=== PATIENT | female | born 1940 | race Caucasian/White ===

== ENCOUNTER 2019-09-10 05:42 | Inpatient (IN) | payer MEDICARE, OTHER, SELFPAY ==
[2019-09-03 13:41] VITALS: BMI 40.3
[2019-09-10] VITALS (16 sets, daily range): BP systolic 87–131; BP diastolic 42–70; PULSE 57–92; RESP 11–18; TEMP 35.8–37.4; O2SAT 95–100; BMI 40.3
--- NOTE | 2019-09-10 06:00 | DI.RAD.S_ITS ---
PROCEDURE: XR PELVIS 1-2V INDICATIONS: right PRIETO TECHNIQUE: 1 view of the lower pelvis acquired. COMPARISON: None. FINDINGS: Bones: Patient is status post right hip arthroplasty, with hardware components in expected positions. The hip joint appears congruent. The visualized bony structures appear intact. Mild left hip degeneration. Lower lumbar spondylosis and facet arthropathy. Soft tissues: Overlying postoperative changes are noted. No suspicious soft tissue densities. IMPRESSION: Expected postoperative appearance. Dictated by: Joe Ruiz M.D. on 09/10/2019 at 11:15 Approved by: Joe Ruiz M.D. on 09/10/2019 at 11:15
[2019-09-10] MEDS: LACTATED RINGERS 1,000 ML 42 ML IV ×2 (07:28→09:15)
[2019-09-10] MEDS: PREGABALIN 75 MG CAPSULE PO (07:31)
[2019-09-10] MEDS: CELECOXIB 200 MG CAPSULE PO (07:32)
[2019-09-10] MEDS: CEFAZOLIN 2 GM/100 ML FROZ.PIGGY IV ×2 (07:52→16:37)
--- NOTE | 2019-09-10 08:00 | PM.PREOP ---
Pre-operative Note Interval Note History & Physical reviewed/Exam performed by Physician: Yes Changes to H&P: No
[2019-09-10] MEDS: TRANEXAMIC ACID 1,000 MG VIAL 2000 MG INJ ×2 (08:20→09:24)
--- NOTE | 2019-09-10 08:39 | SUR.OPER ---
Lateral on padded OR bed. Gel axillary roll. Arms secured on padded armboard with pillow supporting top arm. Padded hip positioner braces x4 - anterior and posterior chest and pelvis. Additional gel pad used anterior pelvis. Gel pad under bottom leg from knee to foot and secured with tape over sheet.
[2019-09-10] MEDS: MORPHINE 4 MG/ML INJ INJ (08:45)
[2019-09-10] MEDS: KETOROLAC 30 MG/ML VIAL IV (08:45)
[2019-09-10] MEDS: ROPIVACAINE 0.5% PF 5 MG/ML 20ML VIAL 60 ML INJ (08:45)
--- NOTE | 2019-09-10 09:54 | PM.OP.1 ---
Operative Date/Time/Diagnoses Date of procedure: 09/10/19 Time of procedure: 09:55 Pre-op diagnosis: Right hip degenerative joint disease Post-op diagnosis: same Procedure & Clinicians Procedure: Right total hip arthroplasty (CPT code 32752 with assistant shift supervisor) Same procedure as scheduled: Yes Indications: Patient is an 79-year-old female with severe right hip DJD. The patient has pain with activities and at rest, limited ambulation and activity tolerance, difficulties with ADLs, and failure of conservative treatment. We have discussed the nature of condition, treatment options, risks and benefits, and patient elects to proceed with total hip arthroplasty and gives informed consent. Surgeon: Rod Randhawa Buncher Operator: Mitchell Arias Anesthesia Type: General and Spinal Operative Notes Closure Type: primary Specimen(s): none sent Prosthetic devices, grafts, tissues, transplants, or devices: Acetabulum: Madrigal and Nephew R3 acetabular component size 56 mm Femoral component: Madrigal [employer] Nephew Anthology stem size 11 with standard offset Femoral head: 36 mm -3 cobalt chrome Estimated Blood Loss (mL): 150 Procedure in detail: After satisfaction induction of anesthetic, and administration of IV antibiotics, the patient was positioned in the lateral decubitus position with all bony prominences well padded and pelvic position secured using a hip quality assurance consultant positioning device. Right hip and lower extremity prepped and draped in the usual sterile fashion, 1st dose of intravenous tranexamic acid was administered, then a longitudinal incision was created centered over the greater trochanter and carried sharply through the skin and subcutaneous tissues down to the fascia margi which was divided longitudinally and retracted with a Charnley retractor. External rotators visualize, cut, tagged, and retracted posteriorly, then the capsule was cut in a T-type fashion with the corners tagged and retracted. Hip was dislocated and femoral neck cut made according to preoperative templating. Acetabular retractors then placed, and the acetabular labrum and osteophytes were excised. The acetabulum was then sequentially reamed to 55 mm with an excellent circumferential ream and fit with the trial. The trial component was removed and a permanent size 56 mm Madrigal and Nephew R3 acetabular component was selected, positioned, and impacted with satisfactory position and fixation achieved. Permanent liner was then inserted with the elevated lip directed posteriorly. Soft tissue then removed off the lateral femoral neck in the lateral neck was entered using a box osteotome. T-handled reamers placed down the canal followed by sequential broaching to 11 with the final broach left in place for trial reduction which demonstrated excellent leg length, range of motion, and stability characteristics with a 36 mm -3 trial ball. The trial and broach were removed, and a permanent size 11 Madrigal and Nephew Anthology stem was selected and inserted with excellent position and fixation achieved. Another trial reduction yielded the above characteristics so the trial ball was exchanged for a permanent 36 mm -3 cobalt chrome ball. The hip was irrigated and reduced and excellent leg length range of motion and stability characteristics were achieved and maintained. Periarticular tissues were infiltrated with combination of ropivacaine, Toradol, and morphine. The hip was copiously irrigated, and the capsule repaired with #2 Ethibond, and the piriformis was repaired back to the greater trochanter with the same. Fascia margi closed with interrupted #1 Ethibond sutures, and the subcutaneous tissues were closed in 2 layers of 0 Vicryl and final subcutaneous closure with 2 0 Vicryl. Skin was closed with lizzette and sterile dressings applied. Second dose of tranexamic acid was administered intravenously, and the anesthetic was terminated. Complications: none Post-operative Condition: stable Disposition: PACU Plan for aftercare: Patient will be admitted to the acute care [facility], and anticipate discharge to extended care facility on postop day 3 with follow-up in office in 10-14 days. Outpatient physical therapy will be arranged and patient will continue to observe posterior hip precautions. Patient will resume use of warfarin postop for DVT prophylaxis.
--- NOTE | 2019-09-10 10:54 | SUR.PHASEI ---
Report to [facility]. Pt repositioned upon arrival, no changes in report, vital signs stable. Pt transferred in stable condition.
--- NOTE | 2019-09-10 11:21 | PC.NURSE ---
Assess- Patient is A&Ox3. She denies pain at this time. Patient had a spinal to her r.leg and has feeling to about her knee now. She is able to wiggle her toes on affected side and she is also moving her l.lower extremity. IVF infusing and patients family is attentive to care. CMS wnl and ppx2. Resting in bed.
--- NOTE | 2019-09-10 12:40 | CM.IDA ---
Initial DCP Assessment Note: Pt is an 79 yo female, resident of [place]. Pt is here for hip surgery w/ Dr Randhawa, she is off the floor for surgery today. PCP: Jose Luis Martinez Payer: [facility] Reviewed chart, pt is hopeful to return home upon medical clearance w/assist from her dtr Nettie (daughter) [phone] and spouse Kamran () [phone] This WOODWORKER HELPER following closely and will plan to assess needs further once p returns to the floor and therapy team has assessed for DC needs. Eli Jack MSW
[2019-09-10] MEDS: SODIUM CHLORIDE 0.9% 1,000 ML 100 ML IV (12:57)
[2019-09-10] MEDS: ACETAMINOPHEN 325 MG TABLET 650 MG PO ×2 (14:19→22:23)
--- NOTE | 2019-09-10 15:25 | PT.IIE ---
Current Diagnoses Unilateral primary osteoarthritis, right hip (09/10/19) Surgery Performed Operation Date: 09/10/19 07:45 Actual Procedures p Total Hip Arthroplasty(Right) - Rod Randhawa MD Surgical History (Last Updated 09/03/19 @ 14:46 by Isaura La RN) H/O: hysterectomy (Acute) History of aortic valve replacement (Acute ~2001) History of lumpectomy of right breast (Acute) Hx of bilateral cataract extraction (Acute) Hx of removal of cyst (Acute) Hx of tonsillectomy (Acute) S/P CABG x 1 (Acute ~2001) Medical History (Last Updated 09/03/19 @ 14:46 by Isaura La RN) CAD (coronary artery disease) (Acute) Cardiomyopathy (Acute) GERD (gastroesophageal reflux disease) (Acute) Glucose intolerance (Acute) Hearing impaired (Acute) HLD (hyperlipidemia) (Acute) HTN (hypertension) (Acute) Hypothyroidism (Acute) LBBB (left bundle branch block) (Acute) Nonrheumatic aortic (valve) stenosis (Acute) Osteoarthritis (Acute) Osteoporosis (Acute) Panic disorder (Acute) RLS (restless legs syndrome) (Acute) Systolic heart failure (Acute) T12 compression fracture (Acute 06/04/12) Urinary incontinence (Acute) Vertigo (Acute) Physical Therapy Inpatient Evaluation/Re-Eval M1 PT/OT-IP Prior Functional Status Start: 09/10/19 17:18 Freq: NEEDED Status: Active Protocol: Document 09/10/19 15:25 AB (Rec: 09/10/19 17:31 AB [id number]) Medical Review Prior Functional Status Medical History Reviewed Yes Communication able to make needs known but with some confusion Mobility and Gait pt stated that she is modified indpendent with all mobilities and ambulation using 2 canes Social History Household Members none Living Arrangements House Number of Floors (Floors) One Floor Number of Stairs To Enter/Railing? 1 step to enter Home Environment High Toilet,Tub/Shower Home Equipment Front Wheel Walker,Straight Cane,Tub Transfer Bench,Hand Held Shower,Grab Bars In Shower Additional Social History Comment pt plans to have her daughter stay with her to assist her as needed pt has a toilet safety frame, an adjustable bed M2 PT-IP Current Condition Start: 09/10/19 17:18 Freq: NEEDED Status: Active Protocol: Document 09/10/19 15:25 AB (Rec: 09/10/19 17:31 AB [id number]) Physical Therapy Current Condition Current Condition Evaluation Date 09/10/19 Treatment Diagnosis s/p R PRIETO posterior approach; difficulty in walking Onset Date 09/10/2019 Precautions Posterior Hip Precautions No Hip Flexion > 90 degrees,No Hip Internal Rotation,No Hip Adduction Weight Bearing Status Weight Bearing Status Weight Bear as Tolerated Allowed Weight Bearing Amount (enter % RLE WBAT or #) (%) M3 PT-IP Subjective Start: 09/10/19 17:18 Freq: NEEDED Status: Active Protocol: Document 09/10/19 15:25 AB (Rec: 09/10/19 17:31 AB [id number]) Subjective Physical Therapy Visit Type Type Initial Evaluation Visit Start Time 15:25 Visit Stop Time 16:30 Total Visit Minutes 55 Number of COOLER WORKER Visits 0 Physical Therapy Visit Comments Patient Comments pt agreeable to do PT Therapy Pain Assessment Pain When Pain Assessed At Rest Pain Present Pain Present Pain Reported Location right hip Intensity 3 Scale Used increases to 4 1/2 with mobility Pain Behaviors Guarding,Holding Area Pain Management Techniques Apply Cold,Modification of Treatment,Re-positioning, Timing of Activity with Medications M4 PT-IP Mobility and Gait Start: 09/10/19 17:18 Freq: NEEDED Status: Active Protocol: Document 09/10/19 15:25 AB (Rec: 09/10/19 17:31 AB [id number]) PT-Bed Mobility Assessment Supine to Sit Supine to Sit Maximum Assistance,1 Person Assistance PT-Transfer Assessment Sit to and From Stand Sit to and from Stand Maximum Assistance,2 Person Assistance,Use of Upper Extremities Equipment Transfer Assistive Device Gait Belt,Front Wheeled Walker Orthotic/Prosthetic Devices or Brace: No Transfers Transfer Destination Chair Transfer Technique Stand Step Pivot Transfer Ability Level of Assist Maximum Assistance,2 Person Assistance,Use of Upper Extremities Comments Mobility Comments educated pt on hip precautions . pt with confusion and requires repeated cues for safety and precautions. daughter present during PT. pt completed supine to sit max A and cues. required assist with RLE mobility. pt was able to sit on EOB SBA to CGA. completed sit to stand max A x 2 and max cues. (+) R knee buckling requiring max A for stability and max cues to activate R quads. completed step transfer using FWW max A x 2 and max cues for stability . positioned pt on the chair. call light and table placed within reach. ice pack provided. informed nurse regarding pt's mobility level and assistance. Gait Assessment Comments Gait Comments unable at this time due to R knee buckling PT-Balance Assessment Sitting Balance and Reactions Static Sitting Balance Ability Good Dynamic Sitting Balance Ability Fair Standing Balance and Reactions Static Standing Balance Ability Poor Dynamic Standing Balance Ability Poor Device Used FWW M5 PT-IP Objective Assessments Start: 09/10/19 17:18 Freq: NEEDED Status: Active Protocol: Document 09/10/19 15:25 AB (Rec: 09/10/19 17:31 AB [id number]) Orientation Orientation/Cognition Level of Alertness Alert Orientation Name,Place,Situation Language Function Ability No Deficits Noted Safety Awareness Decreased Safety Awareness Memory Description Short Term Impaired Gross Range of Motion Lower Extremity ROM Assessment Right Impaired Impairments RLE tightness and increase guarding affecting PROM Strength Lower Extremity Strength Assessment Bilaterally Impaired Hip R: 3+/5 L: 4-/5 Knee R: 3-/5 L: 3+/5 Sensation Assessment Sensation Gross Sensation WNL Muscle Tone Muscle Tone WNL Yes M6 PT-IP Treatment Start: 09/10/19 17:18 Freq: NEEDED Status: Active Protocol: Document 09/10/19 15:25 AB (Rec: 09/10/19 17:31 AB [id number]) Physical Therapy Treatment Exercises Exercises Quad Sets,Heel Slides Education Education Provided Precautions,Weight Bearing Status,Post-Op Packet,Safety M7 PT-IP Assessment and Plan Start: 09/10/19 17:18 Freq: NEEDED Status: Active Protocol: Document 09/10/19 15:25 AB (Rec: 09/10/19 17:31 AB [id number]) PT Summary Assessment and Plan Potential Rehabilitation Potential Fair Status of Condition at Evaluation Evolving Summary Impairments Pain,ROM,Strength,Balance, Coordination,Sensation,Tone, Cognition,Bed Mobility, Transfers,Gait,Activity Tolerance Assessment Summary pt requiring 2 person max A with mobility at this time. d /c plan depending on progress but at this time may require SNF rehab. will continue to assess progress. pt plans to go home with daughter to assist her and will conduct caregiver training and stair training when appropriate. Goals Bed Mobility Goal Standby Assistance Transfer Goal Standby Assistance,Front Wheeled Walker Gait Goal Standby Assistance,Front Wheel Walker Gait Distance 100 Other Goals up/down 1 step using FWW CGA Days to Meet Goals 5 Frequency of Treatment Frequency Of Treatment Twice a Day Treatment Plan Physical Therapy Treatment Plan Bed Mobility Training,Transfer Training,Gait Training, Therapeutic Exercise,Balance Retraining,Post Op Education, Discharge Planning,Hot or Cold Pack,Neuromuscular Re-ed, Coordination Retraining,Manual Therapy Other Recommendations and Next Treatment transfers, ambulation, Focus caregiver training when appropriate Recommendations To Nursing Amount of Assist Needed 2 Person Assist Discharge Recommendations PT Discharge Recommendations Home with 24/7 Assist,Home Health,SNF Rehab Other Discharge Recommendations depending on progress: SNF vs home with 24/7 and homehealth PT Transportation Needs at Discharge Private Vehicle,Wheelchair/ Cabulance
[2019-09-10] MEDS: WARFARIN 2.5 MG TABLET PO (16:37)
[2019-09-10] MEDS: HYDROCODONE/ACET 5/325 TABLET 1 TAB PO ×2 (16:49→21:09)
[2019-09-10] MEDS: ENOXAPARIN 100 MG/ML SYRINGE SUBCUT (21:06)
[2019-09-10] MEDS: PANTOPRAZOLE 40 MG TABLET PO (21:09)
[2019-09-10] MEDS: ROSUVASTATIN 10 MG TABLET 40 MG PO (21:09)
[2019-09-10] MEDS: lisinopriL 5 MG TABLET PO (21:09)
[2019-09-10] MEDS: EZETIMIBE 10 MG TABLET PO (21:12)
--- NOTE | 2019-09-10 23:31 | PC.NURSE ---
Pt reports she was told she would be taking lovenox while in hospital. Ortho PA notified. Orders placed by PA.
[2019-09-11] VITALS (7 sets, daily range): BP systolic 99–125; BP diastolic 50–63; PULSE 42–96; RESP 18–19; TEMP 36.5–37.2; O2SAT 94–99
[2019-09-11] MEDS: CEFAZOLIN 2 GM/100 ML FROZ.PIGGY IV (00:10)
[2019-09-11] MEDS: SODIUM CHLORIDE 0.9% 1,000 ML 100 ML IV (00:15)
[2019-09-11] MEDS: HYDROCODONE/ACET 5/325 TABLET 1 TAB PO ×2 (02:02→06:04)
[2019-09-11] MEDS: diphenhydrAMINE 25 MG TABLET PO (02:16)
--- NOTE | 2019-09-11 03:43 | PC.NURSE ---
Addendum entered by Crissy Ibarra R.N. 09/11/19 06:08: Medicated with Vicodin for complaint of 8/10 right hip/thigh pain after being pulled up in bed. Original Note: Patient seen and assessed at 0220 (was asleep earlier in shift). Patient is alert and oriented but anxious. Breath sounds CTA with RA sat of 95%. HRR. Denies nausea. BT present but denies flatus as yet; abdomen is soft. Indwelling catheter is patent; urine clear amarilis. Not wanting to turn, but did turn to right side to enable RN to listen to lung sounds but stated was too painful to remain on right side so back onto back and ice applied to hip as well as medicated with Vicodin. TRAVON dressing to right hip intact with 1 small spot of dark red drainage. CMS is intact. Does have fatty tissue bulge on lateral right ankle which is chronic. Bruising noted on left UE, right LE (anterior and posterior) and abdomen. Wearing bilateral calf SCD's. Fall risk score is high and bed alarm is activated. Daughter, Amirah, rooming in. Currently patient is complaining of restless legs so medicated with Mirapex. Allowed staff to tilt bed slightly to left to change pressure. Ice packs applied to right hip and thigh.
[2019-09-11] MEDS: PRAMIPEXOLE 0.25 MG TABLET 0.75 MG PO ×2 (03:46→19:15)
[2019-09-11] MEDS: CYCLOBENZAPRINE 10 MG TABLET PO ×3 (04:47→19:15)
--- NOTE | 2019-09-11 04:51 | PC.NURSE ---
0440 Pt c/o spasms to RLE. Pt given cyclobezaprine per EMAR. Pt asked to have bed rotated to back.
[2019-09-11] MEDS: LEVOTHYROXINE 125 MCG TABLET PO (06:04)
[2019-09-11 06:24] LABS: Hematocrit 34.1 % (36-46); Hemoglobin 11.8 g/dL (12.0-16.0)
[2019-09-11] MEDS: ENOXAPARIN 100 MG/ML SYRINGE SUBCUT ×2 (08:00→21:25)
[2019-09-11] MEDS: ASPIRIN EC 81 MG TABLET PO (08:00)
[2019-09-11] MEDS: ACETAMINOPHEN 325 MG TABLET 650 MG PO ×3 (08:00→22:35)
--- NOTE | 2019-09-11 09:40 | PM.PNPO.1 ---
Subjective Subjective Date Patient Seen: 09/11/19 Time Patient Seen: 09:40 Interval history: Pain is moderate to severe. Denies fever chills. No nausea vomiting. She denies any shortness of breath or chest pain. Exam Vital Signs (past 8 hours): - 09/11/19 04:48 09/11/19 07:34 Temperature 99 F 98.8 F Pulse Rate 94 H 42 L Respiratory Rate 19 18 Blood Pressure 99/51 L 117/63 Pulse Oximetry 94 98 Oxygen Delivery Method Room Air Oxygen Flow Rate 0 Narrative Exam Narrative: 79-year-old female resting comfortably in bed in no apparent distress. Merlene dressing is moist, on and functioning. Motor functions intact distal right lower extremity. Right leg is warm and dry. Sensation grossly intact to light touch. Objective Labs Result Diagrams: 09/11/19 06:01 Labs: Laboratory Results - last 24 hr 09/11/19 06:01 Hgb 11.8 L Hct 34.1 L Assessment & Plan Post-op Postoperative Procedures: Procedures Operation Date: 09/10/19 07:45 Actual Procedures Side Surgeon p Total Hip Arthroplasty Right Rod Randhawa MD Postop day 1. Patient on Lovenox and Coumadin. Mobilize with physical therapy. Posterior hip precautions. Patient will have 1 person home to assist her but currently requiring 2 person assist per physical therapy. Possible discharge home tomorrow or Sunday.
[2019-09-11] MEDS: TRAMADOL 50 MG TABLET PO ×3 (10:18→21:00)
--- NOTE | 2019-09-11 11:40 | PT.IPTN ---
Current Diagnoses Unilateral primary osteoarthritis, right hip (09/10/19) Surgery Performed Operation Date: 09/10/19 07:45 Actual Procedures p Total Hip Arthroplasty(Right) - Rod Randhawa MD Physical Therapy Treatment Note M2 PT-IP Current Condition Start: 09/10/19 17:18 Freq: NEEDED Status: Active Protocol: Document 09/10/19 15:25 AB (Rec: 09/10/19 17:31 AB [id number]) Physical Therapy Current Condition Current Condition Evaluation Date 09/10/19 Treatment Diagnosis s/p R PRIETO posterior approach; difficulty in walking Onset Date 09/10/2019 Precautions Posterior Hip Precautions No Hip Flexion > 90 degrees,No Hip Internal Rotation,No Hip Adduction Weight Bearing Status Weight Bearing Status Weight Bear as Tolerated Allowed Weight Bearing Amount (enter % RLE WBAT or #) (%) M3 PT-IP Subjective Start: 09/10/19 17:18 Freq: NEEDED Status: Active Protocol: Document 09/11/19 11:01 SP (Rec: 09/11/19 14:35 SP [id number]) Subjective Physical Therapy Visit Type Type Treatment Note Visit Start Time 11:01 Visit Stop Time 11:40 Total Visit Minutes 39 Notes Daughter in room observed treatment and understands will be asked to assist and complete caregiver training prior to DC. Number of HOME INSPECTOR Visits 1 Physical Therapy Visit Comments Patient Comments pt agreeable to PT. Therapy Pain Assessment Pain Present Pain Present Pain Reported Location Right Buttock Intensity 5 Scale Used Numeric (1 - 10) Pain Behaviors Facial Grimacing,Holding Area, Moaning Pain Management Techniques Re-positioning,Timing of Activity with Medications M4 PT-IP Mobility and Gait Start: 09/10/19 17:18 Freq: NEEDED Status: Active Protocol: Document 09/11/19 11:01 SP (Rec: 09/11/19 14:35 SP [id number]) PT-Bed Mobility Assessment Supine to Sit Supine to Sit Maximum Assistance,1 Person Assistance,Head of Bed Elevated,Bedrails Scooting Scooting to Edge of Bed Maximum Assistance PT-Transfer Assessment Sit to and From Stand Sit to and from Stand Moderate Assistance,1 Person Assistance,Use of Upper Extremities Equipment Transfer Assistive Device Gait Belt,Front Wheeled Walker Transfers Transfer Destination Chair Transfer Technique Pt ambulated using FWW Transfer Ability Level of Assist Moderate Assistance,1 Person Assistance,Use of Upper Extremities Comments Mobility Comments Pt was laying in bed when arrived. Supine to sitting with HOB elevated Max A of 1 to pull from therapist arm Mod - max A with patient's LUE and RUE on bed rail to transition trunk to sitting. Therapist provided Max A for RLE repositioning to R side of EOB and patient was ableto reposition her LLE herself. Max A to scoot forward while patient used BUE to push on bed to complete to EOB BLE on floor. Sit to stand Mod A of 1 using FWW with BUE proper hand placement to pu sh from bed to stand using FWW. Pt required cuing for body and RLE spacial awareness step pivot turning to maintain no IR of R hip and backing up to chair. Pt required Yung for controlled sitting descent into chair. Pt was up in chair when left with call light and all needs in reach. Daughter in room when left. Gait Assessment Gait Gait Assistance Required: Minimum Assistance,1 Person Assist Distance (Feet) 15 Able to Maintain Weight Bearing Status Yes During Gait Assistive Devices Assistive Device Gait Belt,Front Wheeled Walker Orthotic/Prosthetic Devices or Brace: Yes Gait Deviations General Gait Pattern Antalgic,Decreased Stride Length,Decreased Feet Clearance,Flexed Trunk,Step-to Gait Factors Limiting Gait Function Factors Limiting Gait Function Decreased Activity Tolerance, Decreased Strength,Limited Range of Motion,Pain,Poor Balance,Poor Safety Awareness Comments Gait Comments Pt was able to ambulate R side EOB to side chair 3 ft then stood again pivoted to R and walked around to L side of bed where sat back into chair, used FWW Min A with cuing for leading RLE pivot R to maintain no IR precautions, stable with no R knee buckling or unsteady noted today. Stair Climbing Assessment Comments Stair Climbing Comments Assess 1 step using FWW prior to DC. PT-Balance Assessment Sitting Balance and Reactions Static Sitting Balance Ability Good Dynamic Sitting Balance Ability Fair Standing Balance and Reactions Static Standing Balance Ability Fair Dynamic Standing Balance Ability Poor Device Used FWW M5 PT-IP Objective Assessments Start: 09/10/19 17:18 Freq: NEEDED Status: Active Protocol: Document 09/10/19 15:25 AB (Rec: 09/10/19 17:31 AB [id number]) Orientation Orientation/Cognition Level of Alertness Alert Orientation Name,Place,Situation Language Function Ability No Deficits Noted Safety Awareness Decreased Safety Awareness Memory Description Short Term Impaired Gross Range of Motion Lower Extremity ROM Assessment Right Impaired Impairments RLE tightness and increase guarding affecting PROM Strength Lower Extremity Strength Assessment Bilaterally Impaired Hip R: 3+/5 L: 4-/5 Knee R: 3-/5 L: 3+/5 Sensation Assessment Sensation Gross Sensation WNL Muscle Tone Muscle Tone WNL Yes M6 PT-IP Treatment Start: 09/10/19 17:18 Freq: NEEDED Status: Active Protocol: Document 09/11/19 11:01 SP (Rec: 09/11/19 14:35 SP [id number]) Physical Therapy Treatment Exercises Exercises Ankle Pumps,Gluteal Sets,Quad Sets,Heel Slides,Seated Knee Flexion/Extension Education Education Provided Precautions,Weight Bearing Status,Safety Other Treatments Other Treatment Performed AAROM RLE durign supine ther ex, encouraged R knee heel slides while sitting up in chair for lunch. M7 PT-IP Assessment and Plan Start: 09/10/19 17:18 Freq: NEEDED Status: Active Protocol: Document 09/11/19 11:01 SP (Rec: 09/11/19 14:35 SP [id number]) PT Summary Assessment and Plan Potential Rehabilitation Potential Fair Status of Condition at Evaluation Evolving Summary Impairments Pain,ROM,Strength,Balance, Coordination,Sensation,Tone, Cognition,Bed Mobility, Transfers,Gait,Activity Tolerance Assessment Summary See mobility comments. Pt required Max A for bed mobility, Mod A during transfer and gait using FWW with Mod cuing for RLE no IR, leading RLE ER step to stay within precautions. pt plans to go home with daughter to assist her and will conduct caregiver training and stair training when appropriate. Goals Bed Mobility Goal Standby Assistance Transfer Goal Standby Assistance,Front Wheeled Walker Gait Goal Standby Assistance,Front Wheel Walker Gait Distance 100 Other Goals up/down 1 step using FWW CGA Days to Meet Goals 5 Frequency of Treatment Frequency Of Treatment Twice a Day Treatment Plan Physical Therapy Treatment Plan Bed Mobility Training,Transfer Training,Gait Training, Therapeutic Exercise,Balance Retraining,Post Op Education, Discharge Planning,Hot or Cold Pack,Neuromuscular Re-ed, Coordination Retraining,Manual Therapy Other Recommendations and Next Treatment transfers, ambulation, Focus caregiver training when appropriate Recommendations To Nursing Amount of Assist Needed 1 Person Assist Discharge Recommendations PT Discharge Recommendations Home with 19/02 Assist,Home Health,SNF Rehab Other Discharge Recommendations depending on progress: SNF vs home with 24/7 and homehealth PT Transportation Needs at Discharge Private Vehicle,Wheelchair/ Cabulance
--- NOTE | 2019-09-11 13:54 | PT.IPTN ---
Current Diagnoses Unilateral primary osteoarthritis, right hip (09/10/19) Surgery Performed Operation Date: 09/10/19 07:45 Actual Procedures p Total Hip Arthroplasty(Right) - Rod Randhawa MD Physical Therapy Treatment Note M2 PT-IP Current Condition Start: 09/10/19 17:18 Freq: NEEDED Status: Active Protocol: Document 09/10/19 15:25 AB (Rec: 09/10/19 17:31 AB [id number]) Physical Therapy Current Condition Current Condition Evaluation Date 09/10/19 Treatment Diagnosis s/p R PRIETO posterior approach; difficulty in walking Onset Date 09/10/2019 Precautions Posterior Hip Precautions No Hip Flexion > 90 degrees,No Hip Internal Rotation,No Hip Adduction Weight Bearing Status Weight Bearing Status Weight Bear as Tolerated Allowed Weight Bearing Amount (enter % RLE WBAT or #) (%) M3 PT-IP Subjective Start: 09/10/19 17:18 Freq: NEEDED Status: Active Protocol: Document 09/11/19 13:39 SP (Rec: 09/11/19 14:54 SP [id number]) Subjective Physical Therapy Visit Type Type Treatment Note Visit Start Time 13:39 Visit Stop Time 13:54 Total Visit Minutes 15 Notes bricklayer's assistant in room during tx. Number of BEAN VINER Visits 2 Physical Therapy Visit Comments Patient Comments Pt agreeable to PT. Patient Goals Get back to bed. Therapy Pain Assessment Pain When Pain Assessed During Mobility Pain Present Pain Present Pain Reported Location Right Buttock Intensity 5 Scale Used Numeric (1 - 10) Description Acute,Sharp Pain Behaviors Facial Grimacing,Holding Area, Moaning Pain Management Techniques Re-positioning,Timing of Activity with Medications M4 PT-IP Mobility and Gait Start: 09/10/19 17:18 Freq: NEEDED Status: Active Protocol: Document 09/11/19 13:39 SP (Rec: 09/11/19 14:54 SP [id number]) PT-Bed Mobility Assessment Sit to Supine Sit to Supine Moderate Assistance,Maximum Assistance,2 Person Assistance ,Bedrails Scooting Scooting Up and Down in Bed Maximum Assistance,Dependent PT-Transfer Assessment Sit to and From Stand Sit to and from Stand Minimal Assistance,1 Person Assistance,Use of Upper Extremities Equipment Transfer Assistive Device Gait Belt,Front Wheeled Walker Orthotic/Prosthetic Devices or Brace: No Transfers Transfer Destination Bed Transfer Technique Pt ambulated using FWW Transfer Ability Level of Assist Moderate Assistance,1 Person Assistance,Use of Upper Extremities Comments Mobility Comments Pt was up in chair when arrived. Sit to stand Mod A with good hand placement noted this afternoon, used fWW for support, heavy BUE WB. Stand to sit on EOB CGA. Sitting to supine CG- Min A of 1 for trunk support and Max- dependent BLE onto bed then only Mod A for RLE repositioning to center. Mod A of 2 to reposition paitient's upper body in bed. Nursing requested patient be on her L side for dressing change requiring dependent of 2 person to lateral ly scoot patient then Dependent of 1 to log roll patient onto her L side and prop with pillows behind back tomaintain trunk position and 2 pillows between B LE to maitain no R hip IR. Patient had call light and all needs in reach, nurse and her orthotics prosthetics assistant in room when left. Gait Assessment Gait Gait Assistance Required: Contact Guard Assist,Minimum Assistance,1 Person Assist Distance (Feet) 15 Able to Maintain Weight Bearing Status Yes During Gait Assistive Devices Assistive Device Gait Belt,Front Wheeled Walker Orthotic/Prosthetic Devices or Brace: Yes Gait Deviations General Gait Pattern Antalgic,Decreased Stride Length,Decreased Feet Clearance,Flexed Trunk,Step-to Gait Factors Limiting Gait Function Factors Limiting Gait Function Decreased Activity Tolerance, Decreased Strength,Limited Range of Motion,Pain,Poor Balance,Poor Safety Awareness Comments Gait Comments Pt was ableto ambulate from chair to R side of bed 15 ft using bariatric FWW Min initially then CGA as distance progressed with cuing for step pivot turn leadign RLE as in the am to maintain no R hip IR precautions. Stair Climbing Assessment Comments Stair Climbing Comments Future tx: Assess 1 step using FWW prior to DC. PT-Balance Assessment Sitting Balance and Reactions Static Sitting Balance Ability Good Dynamic Sitting Balance Ability Fair Standing Balance and Reactions Static Standing Balance Ability Good Dynamic Standing Balance Ability Fair Device Used FWW M5 PT-IP Objective Assessments Start: 09/10/19 17:18 Freq: NEEDED Status: Active Protocol: Document 09/10/19 15:25 AB (Rec: 09/10/19 17:31 AB [id number]) Orientation Orientation/Cognition Level of Alertness Alert Orientation Name,Place,Situation Language Function Ability No Deficits Noted Safety Awareness Decreased Safety Awareness Memory Description Short Term Impaired Gross Range of Motion Lower Extremity ROM Assessment Right Impaired Impairments RLE tightness and increase guarding affecting PROM Strength Lower Extremity Strength Assessment Bilaterally Impaired Hip R: 3+/5 L: 4-/5 Knee R: 3-/5 L: 3+/5 Sensation Assessment Sensation Gross Sensation WNL Muscle Tone Muscle Tone WNL Yes M6 PT-IP Treatment Start: 09/10/19 17:18 Freq: NEEDED Status: Active Protocol: Document 09/11/19 13:39 SP (Rec: 09/11/19 14:54 SP [id number]) Physical Therapy Treatment Education Education Provided Precautions,Weight Bearing Status,Safety M7 PT-IP Assessment and Plan Start: 09/10/19 17:18 Freq: NEEDED Status: Active Protocol: Document 09/11/19 13:39 SP (Rec: 09/11/19 14:54 SP [id number]) PT Summary Assessment and Plan Potential Rehabilitation Potential Fair Status of Condition at Evaluation Evolving Summary Impairments Pain,ROM,Strength,Balance, Coordination,Sensation,Tone, Cognition,Bed Mobility, Transfers,Gait,Activity Tolerance Assessment Summary See mobility comments. Pt required Max A for sit to supine bed mobility, Min A transfer and Min- CGA during gait around end of bed using FWW with occasional cuing for RLE no IR to maintain precautions. Pt plans to go home with daughter to assist her and will conduct caregiver training and stair training when appropriate. Goals Bed Mobility Goal Standby Assistance Transfer Goal Standby Assistance,Front Wheeled Walker Gait Goal Standby Assistance,Front Wheel Walker Gait Distance 100 Other Goals up/down 1 step using FWW CGA Days to Meet Goals 5 Frequency of Treatment Frequency Of Treatment Twice a Day Treatment Plan Physical Therapy Treatment Plan Bed Mobility Training,Transfer Training,Gait Training, Therapeutic Exercise,Balance Retraining,Post Op Education, Discharge Planning,Hot or Cold Pack,Neuromuscular Re-ed, Coordination Retraining,Manual Therapy Other Recommendations and Next Treatment transfers, ambulation, Focus caregiver training when appropriate Recommendations To Nursing Amount of Assist Needed 1 Person Assist Discharge Recommendations PT Discharge Recommendations Home with 24/7 Assist,Home Health,SNF Rehab Other Discharge Recommendations depending on progress: SNF vs home with 24/7 and homehealth PT Transportation Needs at Discharge Private Vehicle,Wheelchair/ Cabulance
--- NOTE | 2019-09-11 14:50 | PC.NURSE ---
Addendum entered by Becky Kevin R.N. 09/11/19 15:40: Patient medicate with tylenol at 1425 and tramadol at 1530. She is comfortable. Original Note: Assess- Patients pain medication changed to Tramadol q 6 hours, given this around 1000 and effective for pain control. She also perfers to take tylenol with this. Patient will be do for tramadol soon. Up with PT and tolerated well. Merlene dressing changed and motor flashing green. Patient has a small amount of blood on it. Dressing not long enough to cover patients whole incision, had to apply a couple of 2x2,s on the end of each dressing and it is working well. is aware of this and states that this is fine. Patient is resting comfortably at this time.
--- NOTE | 2019-09-11 15:26 | CM.DPNOTE ---
DCP Cont Met w/pt today and reviewed DCP. Therapy team recommending SNF vs home w/ HH. Pt still hopeful to return home w/her dtr to assist but gives this NATIONAL ACCOUNT MANAGER permission to send referral to [facility] as a b/u option if not safe enough for home plan TC placed to December at [facility] and gave referral, awaiting f/u JW
[2019-09-11] MEDS: WARFARIN 2.5 MG TABLET PO (17:34)
[2019-09-11] MEDS: ROSUVASTATIN 10 MG TABLET 40 MG PO (21:00)
[2019-09-11] MEDS: EZETIMIBE 10 MG TABLET PO (21:00)
[2019-09-11] MEDS: PANTOPRAZOLE 40 MG TABLET PO (21:00)
--- NOTE | 2019-09-11 21:14 | PC.NURSE ---
Addendum entered by Pam Hendrickson R.N. 09/11/19 22:30: TRAVON dressing changed as ordered, no active bleeding at time of change noted to incision. Incision well approximated, secured with lizzette. TRAVON dressing secured overlying incision, green light blinking and functioning. Original Note: Amelie shift note: 2029: TRAVON dressing noted to be complete saturated, orange light flashing. Notified Dr. Cardona regarding dressing saturation. Order obtained to change dressing with another TRAVON dressing. 2109: Expressed concern with saturation to TRAVON dressing to Dr. Cardona, and the second change in a 6 - 7 hour period. Per MD, continue Lovenox as ordered BID and change TRAVON dressing. Coag studies in the am. Will continue to monitor closely.
[2019-09-12] VITALS (13 sets, daily range): BP systolic 69–120; BP diastolic 49–59; PULSE 65–159; RESP 18–22; TEMP 36.4–37.7; O2SAT 93–100
[2019-09-12] MEDS: TRAMADOL 50 MG TABLET PO ×3 (02:53→16:48)
[2019-09-12] MEDS: CYCLOBENZAPRINE 10 MG TABLET PO ×3 (02:56→15:40)
[2019-09-12 05:53] LABS: INR 1.5 (0.9-1.3); Prothrombin Time 17.2 SECONDS (10.1-12.7)
[2019-09-12] MEDS: ACETAMINOPHEN 325 MG TABLET 650 MG PO ×3 (06:04→18:01)
[2019-09-12] MEDS: LEVOTHYROXINE 125 MCG TABLET PO (06:05)
--- NOTE | 2019-09-12 08:15 | P.PN_ITS ---
Subjective Subjective Date Patient Seen: 09/12/19 Time Patient Seen: 07:16 Interval history: Per nurse, TRAVON dressing changed twice overnight. Patient complains of mild-moderate pain in L hip. Voiding with assistance of rose catheter. Progressing slowly with PT secondary to dizziness. BP 97/59 HR 65 H/H 10.5/30.5 INR 1.5. Denies fever, chills, chest pain, shortness of breath Exam Vital Signs (past 8 hours): - 09/13/19 03:00 09/13/19 03:41 09/13/19 03:57 Temperature 98.0 F Pulse Rate 142 H 142 H 139 H Respiratory Rate 18 18 Blood Pressure 90/65 82/59 L 82/59 L Pulse Oximetry 100 09/13/19 04:05 09/13/19 05:00 09/13/19 06:00 Temperature Pulse Rate 132 H 139 H 147 H Respiratory Rate 19 19 22 Blood Pressure 88/67 L 96/62 98/53 L Pulse Oximetry 99 97 100 09/13/19 07:15 09/13/19 08:00 09/13/19 08:30 Temperature 97.8 F Pulse Rate 97 H 97 H Respiratory Rate 19 16 Blood Pressure 97/54 L 92/58 L Pulse Oximetry 100 98 09/13/19 09:32 Temperature Pulse Rate 102 H Respiratory Rate 17 Blood Pressure 89/57 L Pulse Oximetry 94 Oxygen Delivery Method Nasal Cannula Oxygen Flow Rate 0 Narrative Exam Narrative: 79 year old female is lying comfortably in bed, in no apparent distress. A&Ox3. TRAVON dressing is working and saturated - serosanguineous. SCDs in place. Sensory function grossly intact to light touch in LE BL. Able to actively dorsiflex/plantar flex BL. Capillary refill <2sec in LE BL. Calves warm, soft, compressible, non tender to palpation. Objective Labs Result Diagrams: 09/13/19 04:40 09/13/19 04:40 Labs: Laboratory Results - last 24 hr 09/12/19 09/12/19 09/12/19 05:35 05:35 22:40 WBC 9.1 11.4 H RBC 3.12 L 2.34 L Hgb 10.5 L 10.5 L 7.9 L Hct 30.2 L 30.5 L 22.6 L MCV 97.5 96.8 MCH 33.7 33.6 MCHC 34.5 34.7 RDW 13.6 13.4 Plt Count 161 158 Neut % (Auto) 64.3 Lymph % (Auto) 21.0 L [place] % (Auto) 14.0 Eos % (Auto) 0.3 L Baso % (Auto) 0.4 Neut # (Auto) 7300 H Lymph # (Auto) 2400 [place] # (Auto) 1600 H Eos # (Auto) 0 Baso # (Auto) 0 PT INR Sodium Potassium Chloride Carbon Dioxide BUN Creatinine Estimated GFR BUN/Creatinine Ratio Glucose Calcium Magnesium Total Bilirubin AST ALT Alkaline Phosphatase Troponin I Total Protein Albumin Globulin Albumin/Globulin Ratio TSH Blood Type Antibody Screen Crossmatch 09/12/19 09/12/19 09/12/19 22:40 22:40 23:45 WBC RBC Hgb Hct MCV MCH MCHC RDW Plt Count Neut % (Auto) Lymph % (Auto) [place] % (Auto) Eos % (Auto) Baso % (Auto) Neut # (Auto) Lymph # (Auto) [place] # (Auto) Eos # (Auto) Baso # (Auto) PT INR Sodium 129 L Potassium 4.7 Chloride 98 Carbon Dioxide 26 BUN 16 Creatinine 0.90 Estimated GFR > 60.0 BUN/Creatinine Ratio 17.8 Glucose 158 H Calcium 7.9 L Magnesium 2.0 Total Bilirubin 0.7 AST 48 H ALT 27 Alkaline Phosphatase 34 L Troponin I 0.159 H* Total Protein 5.3 L Albumin 2.6 L Globulin 2.7 Albumin/Globulin Ratio 1.0 TSH Blood Type A Positive Antibody Screen Negative Crossmatch See Detail 09/13/19 09/13/19 09/13/19 04:40 04:40 04:40 WBC 13.7 H RBC 2.79 L Hgb 9.1 L Hct 26.1 L MCV 93.3 D MCH 32.5 MCHC 34.8 RDW 14.3 Plt Count 153 Neut % (Auto) Lymph % (Auto) [place] % (Auto) Eos % (Auto) Baso % (Auto) Neut # (Auto) Lymph # (Auto) [place] # (Auto) Eos # (Auto) Baso # (Auto) PT 24.4 H D INR 2.1 H Sodium Potassium Chloride Carbon Dioxide BUN Creatinine Estimated GFR BUN/Creatinine Ratio Glucose Calcium Magnesium Total Bilirubin AST ALT Alkaline Phosphatase Troponin I 0.362 H* Total Protein Albumin Globulin Albumin/Globulin Ratio TSH Blood Type Antibody Screen Crossmatch 09/13/19 09/13/19 09/13/19 04:40 04:40 04:40 WBC RBC Hgb Hct MCV MCH MCHC RDW Plt Count Neut % (Auto) Lymph % (Auto) [place] % (Auto) Eos % (Auto) Baso % (Auto) Neut # (Auto) Lymph # (Auto) [place] # (Auto) Eos # (Auto) Baso # (Auto) PT INR Sodium 126 L Potassium 4.7 Chloride 96 L Carbon Dioxide 23 BUN 18 H Creatinine 0.70 Estimated GFR > 60.0 BUN/Creatinine Ratio 25.7 H Glucose 128 H Calcium 7.6 L Magnesium 2.0 Total Bilirubin AST ALT Alkaline Phosphatase Troponin I Total Protein Albumin Globulin Albumin/Globulin Ratio TSH 3.93 Blood Type Antibody Screen Crossmatch Assessment & Plan Post-op Postoperative Procedures: Procedures Operation Date: 09/10/19 07:45 Actual Procedures Side Surgeon p Total Hip Arthroplasty Right Rod Randhawa MD Postoperative plan narrative: Dressing saturation - Anticoag plan: ASA 81mg QD, bridging to warfarin with lovenox. Contacted PCP office, recommended continuing anticoag plan until INR 2.0 - Changed TRAVON dressinx4, abd pads, medipore - Ordered CBC - Dr. Randhawa updated Continue current pain management plan Continue SCDs for DVT prophylaxis Resume PT when patient is asymptomatic Discharge to [facility] likely Time Spent With Patient Time with patient: 15-24 minutes
[2019-09-12] MEDS: ENOXAPARIN 100 MG/ML SYRINGE SUBCUT ×2 (09:26→20:01)
[2019-09-12] MEDS: ASPIRIN EC 81 MG TABLET PO (09:26)
--- NOTE | 2019-09-12 10:29 | PT.IPTN ---
Current Diagnoses Unilateral primary osteoarthritis, right hip (09/10/19) Surgery Performed Operation Date: 09/10/19 07:45 Actual Procedures p Total Hip Arthroplasty(Right) - Rod Randhawa MD Physical Therapy Treatment Note M2 PT-IP Current Condition Start: 09/10/19 17:18 Freq: NEEDED Status: Active Protocol: Document 09/10/19 15:25 AB (Rec: 09/10/19 17:31 AB [id number]) Physical Therapy Current Condition Current Condition Evaluation Date 09/10/19 Treatment Diagnosis s/p R PRIETO posterior approach; difficulty in walking Onset Date 09/10/2019 Precautions Posterior Hip Precautions No Hip Flexion > 90 degrees,No Hip Internal Rotation,No Hip Adduction Weight Bearing Status Weight Bearing Status Weight Bear as Tolerated Allowed Weight Bearing Amount (enter % RLE WBAT or #) (%) M3 PT-IP Subjective Start: 09/10/19 17:18 Freq: NEEDED Status: Active Protocol: Document 09/12/19 10:10 HH (Rec: 09/12/19 10:28 [id number]) Subjective Physical Therapy Visit Type Type Treatment Note Visit Start Time 09:40 Visit Stop Time 10:08 Total Visit Minutes 28 Notes food service assistant in room during tx. 2 dtrs attended session Number of RN NEW GRAD Visits 0 Physical Therapy Visit Comments Patient Comments Pt agreeable to PT but c/o muscle spams at R upper thigh. Therapy Pain Assessment Pain When Pain Assessed During Mobility Pain Present Pain Present Pain Reported Location right hip Intensity 3 Scale Used Numeric (1 - 10) Description Acute Pain Behaviors Facial Grimacing Pain Management Techniques Apply Cold,Timing of Activity with Medications M4 PT-IP Mobility and Gait Start: 09/10/19 17:18 Freq: NEEDED Status: Active Protocol: Document 09/12/19 10:10 HH (Rec: 09/12/19 10:28 [id number]) PT-Bed Mobility Assessment Supine to Sit Supine to Sit Maximum Assistance,1 Person Assistance,Head of Bed Elevated,Bedrails Sit to Supine Sit to Supine Maximum Assistance,2 Person Assistance,Bedrails Scooting Scooting to Edge of Bed Maximum Assistance Scooting Up and Down in Bed Maximum Assistance,Dependent PT-Transfer Assessment Comments Mobility Comments Pt was in bed upon PT arrival. c/o new onset of muscle spasm at R upper thigh. Elevated HOB to 40 degrees and attempted supine to sit. Pt was unable to pivot her RLE with belt and needed PT max A to pivot towards R EOB while pt pivoting her upper body very slowly. Pt needed max A x 1 with the use of blue pad followed by scooting towards EOB. Pt c/o lightheadness and BP maintained at 90s/50s but resting HR ranged from 120-138 . Her HR did not change after a sitting break for 8 mins and cont c/o dizziness and SOB. Proceeded to return pt back to bed with CLIENT RENEWAL SPECIALIST assistance with max A x 2 (PT assisted in BLEs and CLIENT RENEWAL SPECIALIST on pt's upper body) . Trendelenberg bed position was used to assist scooting upward afterwards. Pt's HR went down to 100 after and call light was placed within reach. Gait Assessment Comments Gait Comments unable to assess d/t high resting HR and dizziness. Stair Climbing Assessment Comments Stair Climbing Comments unable to assess d/t high resting HR and dizziness. PT-Balance Assessment Sitting Balance and Reactions Static Sitting Balance Ability Good Dynamic Sitting Balance Ability Fair M5 PT-IP Objective Assessments Start: 09/10/19 17:18 Freq: NEEDED Status: Active Protocol: Document 09/10/19 15:25 AB (Rec: 09/10/19 17:31 AB [id number]) Orientation Orientation/Cognition Level of Alertness Alert Orientation Name,Place,Situation Language Function Ability No Deficits Noted Safety Awareness Decreased Safety Awareness Memory Description Short Term Impaired Gross Range of Motion Lower Extremity ROM Assessment Right Impaired Impairments RLE tightness and increase guarding affecting PROM Strength Lower Extremity Strength Assessment Bilaterally Impaired Hip R: 3+/5 L: 4-/5 Knee R: 3-/5 L: 3+/5 Sensation Assessment Sensation Gross Sensation WNL Muscle Tone Muscle Tone WNL Yes M6 PT-IP Treatment Start: 09/10/19 17:18 Freq: NEEDED Status: Active Protocol: Document 09/11/19 13:39 SP (Rec: 09/11/19 14:54 SP [id number]) Physical Therapy Treatment Education Education Provided Precautions,Weight Bearing Status,Safety M7 PT-IP Assessment and Plan Start: 09/10/19 17:18 Freq: NEEDED Status: Active Protocol: Document 09/12/19 10:10 HH (Rec: 09/12/19 10:28 HH [id number]) PT Summary Assessment and Plan Potential Rehabilitation Potential Fair Status of Condition at Evaluation Evolving Summary Impairments Pain,ROM,Strength,Balance, Coordination,Sensation,Tone, Cognition,Bed Mobility, Transfers,Gait,Activity Tolerance Assessment Summary See mobility comments. Pt cont to demonstrates very limited mobility and unstable vital signs with seated resting HR at 130s possibly d/t increase in pain and her anxious behavior. She cont to need max A x 2 for bed mobility , along with her new c/o muscle spasm at R upper thigh but resolved after sitting up. In my professional opinion, pt needs SNF rehab due to her very limited mobility which would be a great burden to her family. Goals Bed Mobility Goal Standby Assistance Transfer Goal Standby Assistance,Front Wheeled Walker Gait Goal Standby Assistance,Front Wheel Walker Gait Distance 100 Other Goals up/down 1 step using FWW CGA Days to Meet Goals 5 Frequency of Treatment Frequency Of Treatment Twice a Day Treatment Plan Physical Therapy Treatment Plan Bed Mobility Training,Transfer Training,Gait Training, Therapeutic Exercise,Balance Retraining,Post Op Education, Discharge Planning,Hot or Cold Pack,Neuromuscular Re-ed, Coordination Retraining,Manual Therapy Other Recommendations and Next Treatment check vitals Focus transfers, ambulation, caregiver training when appropriate Recommendations To Nursing Amount of Assist Needed 1 Person Assist,2 Person Assist Discharge Recommendations PT Discharge Recommendations SNF Rehab Other Discharge Recommendations see assessment summary Transportation Needs at Discharge Private Vehicle,Wheelchair/ Cabulance
[2019-09-12 11:08] LABS: Hematocrit 30.2 % (36-46); Hemoglobin 10.5 g/dL (12.0-16.0)
--- NOTE | 2019-09-12 13:06 | PC.NURSE ---
Patient is extremely anxious. She states that she is having a spasm and some burning on the anterior portion of her thigh on r.hip replacement. Given tramadol, tylenol, and flexeril for her discomfort and helpful. Patients deangelo drain dressing has been changed several times and PA is going to change the dressing to 4x4s, abd pads, and metapor tape. She is eating lunch now and seems to be comfortable. Applying ice to leg and helpful.
--- NOTE | 2019-09-12 15:56 | PT.IPTN ---
Current Diagnoses Unilateral primary osteoarthritis, right hip (09/10/19) Surgery Performed Operation Date: 09/10/19 07:45 Actual Procedures p Total Hip Arthroplasty(Right) - Rod Randhawa MD Physical Therapy Treatment Note M2 PT-IP Current Condition Start: 09/10/19 17:18 Freq: NEEDED Status: Active Protocol: Document 09/10/19 15:25 AB (Rec: 09/10/19 17:31 AB [id number]) Physical Therapy Current Condition Current Condition Evaluation Date 09/10/19 Treatment Diagnosis s/p R PRIETO posterior approach; difficulty in walking Onset Date 09/10/2019 Precautions Posterior Hip Precautions No Hip Flexion > 90 degrees,No Hip Internal Rotation,No Hip Adduction Weight Bearing Status Weight Bearing Status Weight Bear as Tolerated Allowed Weight Bearing Amount (enter % RLE WBAT or #) (%) M3 PT-IP Subjective Start: 09/10/19 17:18 Freq: NEEDED Status: Active Protocol: Document 09/12/19 14:10 LJ (Rec: 09/12/19 15:56 LJ [email or web address]) Subjective Physical Therapy Visit Type Type Treatment Note Visit Start Time 14:10 Visit Stop Time 14:56 Total Visit Minutes 46 Notes Pa and nurse changing dressing . Pt lying rt side incline Physical Therapy Visit Comments Patient Comments Pt agreeable to PT but c/o muscle spams at R upper thigh. Therapy Pain Assessment Pain When Pain Assessed At Rest Pain Present Pain Present Pain Reported Location Right Buttock Intensity 5 Description Aching Pain Behaviors Facial Grimacing,Holding Area, Moaning Pain Management Techniques Re-positioning,Timing of Activity with Medications M4 PT-IP Mobility and Gait Start: 09/10/19 17:18 Freq: NEEDED Status: Active Protocol: Document 09/12/19 14:10 LJ (Rec: 09/12/19 15:56 LJ [email or web address]) PT-Bed Mobility Assessment Scooting Scooting Up and Down in Bed Maximum Assistance,Dependent PT-Transfer Assessment Comments Mobility Comments Pt was unable to reposition or even attempt to sit up in bed . Muscle spasms would occur every time pt initiated movement with RLE Gait Assessment Comments Gait Comments unable at this time Stair Climbing Assessment Comments Stair Climbing Comments unable at this time. Pt unable to get out of bed due to pain and muscle spasms PT-Balance Assessment Sitting Balance and Reactions Static Sitting Balance Ability Good Dynamic Sitting Balance Ability Fair Standing Balance and Reactions Static Standing Balance Ability Good Dynamic Standing Balance Ability Fair Device Used FWW M5 PT-IP Objective Assessments Start: 09/10/19 17:18 Freq: NEEDED Status: Active Protocol: Document 09/10/19 15:25 AB (Rec: 09/10/19 17:31 AB [id number]) Orientation Orientation/Cognition Level of Alertness Alert Orientation Name,Place,Situation Language Function Ability No Deficits Noted Safety Awareness Decreased Safety Awareness Memory Description Short Term Impaired Gross Range of Motion Lower Extremity ROM Assessment Right Impaired Impairments RLE tightness and increase guarding affecting PROM Strength Lower Extremity Strength Assessment Bilaterally Impaired Hip R: 3+/5 L: 4-/5 Knee R: 3-/5 L: 3+/5 Sensation Assessment Sensation Gross Sensation WNL Muscle Tone Muscle Tone WNL Yes M6 PT-IP Treatment Start: 09/10/19 17:18 Freq: NEEDED Status: Active Protocol: Document 09/12/19 14:10 LJ (Rec: 09/12/19 15:56 LJ [email or web address]) Physical Therapy Treatment Exercises Exercises Ankle Pumps,Gluteal Sets,Quad Sets,Heel Slides Other Treatments Other Treatment Performed STM at right hip flexors and thigh in supine. AAROM with heel slides M7 PT-IP Assessment and Plan Start: 09/10/19 17:18 Freq: NEEDED Status: Active Protocol: Document 09/12/19 14:10 LJ (Rec: 09/12/19 15:56 LJ [email or web address]) PT Summary Assessment and Plan Potential Rehabilitation Potential Fair Status of Condition at Evaluation Evolving Summary Impairments Pain,ROM,Strength,Balance, Coordination,Sensation,Tone, Cognition,Bed Mobility, Transfers,Gait,Activity Tolerance Assessment Summary Pt cont to be very limited in mobility by pain, muscle spasms, and weakness. Pt was unable to move her RLE independently and when assisted (~90%) spasms would occur. After several minutes of STM pt was able to AAROM gentle heel slides but any independent mattempt at movement would create more spasming. Attempt tp sit on side of bed next treatment. Goals Bed Mobility Goal Standby Assistance Transfer Goal Standby Assistance,Front Wheeled Walker Gait Goal Standby Assistance,Front Wheel Walker Gait Distance 100 Other Goals up/down 1 step using FWW CGA Days to Meet Goals 5 Frequency of Treatment Frequency Of Treatment Twice a Day Treatment Plan Physical Therapy Treatment Plan Bed Mobility Training,Transfer Training,Gait Training, Therapeutic Exercise,Balance Retraining,Post Op Education, Discharge Planning,Hot or Cold Pack,Neuromuscular Re-ed, Coordination Retraining,Manual Therapy Other Recommendations and Next Treatment check vitals Focus transfers, ambulation, caregiver training when appropriate Recommendations To Nursing Amount of Assist Needed 1 Person Assist,2 Person Assist Discharge Recommendations PT Discharge Recommendations SNF Rehab Other Discharge Recommendations see assessment summary Transportation Needs at Discharge Private Vehicle,Wheelchair/ Cabulance
--- NOTE | 2019-09-12 16:25 | CM.DPNOTE ---
Pt has been accepted at [facility] if SNF bed needed Sunday. PASRR still needed. JW
[2019-09-12 17:29] LABS: Hematocrit 30.5 % (36-46); Hemoglobin 10.5 g/dL (12.0-16.0); Mean Corpuscular HGB Conc 34.5 % (30-36); Mean Corpuscular Hemoglobin 33.7 PG (26-34); Mean Corpuscular Volume 97.5 fL (80-100); Platelet Count 161 X10^3/uL (150-400); Red Blood Cell Count 3.12 X10^6/uL (4.0-5.2); Red Cell Distribution Width 13.6 % (11.6-14.8); White Blood Cell Count 9.1 X10^3/uL (4.5-11.0)
[2019-09-12] MEDS: WARFARIN 5 MG TABLET PO (18:02)
[2019-09-12] MEDS: ROSUVASTATIN 10 MG TABLET 40 MG PO (20:00)
[2019-09-12] MEDS: PANTOPRAZOLE 40 MG TABLET PO (20:00)
[2019-09-12] MEDS: EZETIMIBE 10 MG TABLET PO (20:00)
[2019-09-12] MEDS: diphenhydrAMINE 25 MG TABLET PO (20:03)
[2019-09-12] MEDS: ONDANSETRON 4 MG ODT PO (21:14)
[2019-09-12] MEDS: SODIUM CHLORIDE 0.9% 1,000 ML 1000 ML IV (21:25)
--- NOTE | 2019-09-12 21:51 | PC.NURSE ---
Pt HR variable and tachy for last 90 minutes, BP very low bilateral arms incl FA 76-90/46-50. Pt became nauseas and broke out in cold sweat, afebrile 97.8. RR= 18, O2 sat 99%. Urine output for [place] shift = 125 mLs. MD Sanabria ordered 1000mLs NS /999 hr. Tele applied.
--- NOTE | 2019-09-12 21:58 | PC.NURSE ---
MD Sanabria advised patient in SVT. MANAGER LABOR DELIVERY in room.
--- NOTE | 2019-09-12 22:11 | P.HP_ITS ---
History of Present Illness History of Present Illness Date Patient Seen: 09/12/19 Time Patient Seen: 22:11 Chief complaint: 96379 Right Total Hip Arthroplasty Narrative: Patient w/ PMHx of HTN, CAD (h/o 1v-CABG 2001), cardiomyopathy, LBBB, AV stenosis (s/p mechanical AVR 2001), chronic warfarin AC, HLD, hypothyroidism, OA, osteoporosis, RLS, and morbid obesity. Patient's visual merchandising associate is Yadiel Higginbotham in [facility]. Patient is being seen for an arrhythmia consult. Patient was admitted to the hospital 09/10/2019 with severe right hip DJD for which she underwent right total hip arthroplasty. Patient surgical course was uneventful. Records show EBL of 150 ml. On at 2200 hour patient developed a cardiac arrhythmia. Initially appeared to be SVT but then EKG did not seem to be completely consistent with SVT and was more of an AFIB RVR (170-180s). Patient was symptomatic for diaphoresis, dizziness, and hypotension. SBP dropped into the 60s mmHg. Patient does not have prior history of known arrhythmia. She was on a beta-sary, carvedilol, which has been help with past 2 days. Patient is also warfarin for her mechanical heart valve. Warfarin has been restarted post-op with a Lovenox bridge. INR as of 0535 was 1.5. Patient was transferred to the ICU. She was treated with 150 mg bolus of amiodarone insert on the amiodarone drip per protocol. There was improvement in patient's blood pressure (90 mmHg) and heart rate (140-150). Patient's symptoms have resolved. Patient's primary visual merchandising associate is Yadiel Higginbotham with [facility] in [place]. I have spoke with Dr. Guillory, visual merchandising associate on-call for the group. Further recommendations received... Digoxin 250 mcg IV up to 4 doses. If patient patient is symptomatic and unable to sustain her blood pressure than may need to be cardioverted. Patient History Medical History CAD (coronary artery disease) (Acute) Cardiomyopathy (Acute) GERD (gastroesophageal reflux disease) (Acute) Glucose intolerance (Acute) Hearing impaired (Acute) HLD (hyperlipidemia) (Acute) HTN (hypertension) (Acute) Hypothyroidism (Acute) LBBB (left bundle branch block) (Acute) Nonrheumatic aortic (valve) stenosis (Acute) Osteoarthritis (Acute) Osteoporosis (Acute) Panic disorder (Acute) RLS (restless legs syndrome) (Acute) Systolic heart failure (Acute) T12 compression fracture (Acute 06/04/12) Urinary incontinence (Acute) Vertigo (Acute) Surgical History H/O: hysterectomy (Acute) History of aortic valve replacement (Acute ~2001) History of lumpectomy of right breast (Acute) Hx of bilateral cataract extraction (Acute) Hx of removal of cyst (Acute) Hx of tonsillectomy (Acute) S/P CABG x 1 (Acute ~2001) Family & Social History Social History: household members none Prior Living Arrangements House Safety & Behavioral: Feels Safe in Current Yes Environment Been Physically Hurt or No Threatened By a Person Suicidal Ideation Description None Suicide Plan Description No Plan Tobacco & Substance use: Smoking Status Never smoker alcohol intake never Substance Use Type does not use Meds Home Medications and Allergies Home Medications Medication Instructions Recorded Confirmed Type diphenhydramine HCl 25 mg PO BEDTIME PRN #0 06/17/12 09/10/19 History acetaminophen [Tylenol Extra 500 mg PO Q8HP PRN #0 06/18/12 09/10/19 History Strength] tramadol 50 mg PO Q8HP PRN #0 06/18/12 09/10/19 History aspirin 81 mg PO DAILY 09/03/19 09/10/19 History calcium carbonate-vitamin D3 1 tab PO BID 09/03/19 09/10/19 History [Caltrate 600 plus D] carvedilol 25 mg PO BID 09/03/19 09/10/19 History cyclobenzaprine 10 mg PO TID PRN 09/03/19 09/10/19 History ezetimibe [Zetia] 10 mg PO BEDTIME 09/03/19 09/10/19 History levothyroxine [Synthroid] 125 mcg PO SEEINSTR 09/03/19 09/10/19 History lisinopril 5 mg PO BEDTIME 09/03/19 09/10/19 History niacin 1,000 mg PO BID 09/03/19 09/10/19 History omeprazole 40 mg PO BEDTIME 09/03/19 09/10/19 History pramipexole 0.75 mg PO BEDTIME PRN 09/03/19 09/10/19 History rosuvastatin [Crestor] 40 mg PO BEDTIME 09/03/19 09/10/19 History trospium 60 mg PO BEDTIME 09/03/19 09/10/19 History warfarin 2.5 mg PO SEEINSTR 09/03/19 09/10/19 History warfarin 5 mg PO SEEINSTR 09/03/19 09/10/19 History Allergies Allergy/AdvReac Type Severity Reaction Status Date / Time latex Allergy Intermediate ITCHING Verified 09/10/19 07:23 Review of Systems Review of Systems ROS: Yes All systems reviewed with the patient and are negative except as otherwise documented Exam Vital Signs (past 8 hours): - 09/12/19 16:37 09/12/19 19:52 09/12/19 19:54 Temperature 98.9 F 98.5 F Pulse Rate 116 H 107 H 115 H Respiratory Rate 19 22 Blood Pressure 105/56 L 105/52 L 105/52 L Pulse Oximetry 97 97 09/12/19 21:36 09/12/19 21:40 09/12/19 21:44 Temperature 97.8 F Pulse Rate 118 H 129 H 132 H Respiratory Rate 18 18 18 Blood Pressure 94/52 L 81/49 L 69/50 L Pulse Oximetry 99 98 97 Oxygen Delivery Method Room Air Oxygen Flow Rate 0 Narrative Exam Narrative: Constitutional: diaphoretic, obese habitus Neurologic: AOx3, no focal neurological deficits Head: NC, AT Eyes: PERRL, EOMI, Ears: external ears normal, no otorrhea Nose: external nose normal, no rhinorrhea or epistaxis Throat: dry MM, oropharynx w/o exudate Neck: no masses, lymphadenopathy, or JVD Chest / Respiratory: equal chest rise, unlabored respiratory effort, no tachypnea Heart / CV: Irregular Abdomen / GI: central obesity, NT, ND, + BS, no organomegaly : no suprapubic tenderness Peripheral / Vascular: warm to touch, DP and PT pulses palpable, no edema Musc: full ROM of upper and lower extremities; RLE diminished ROM Skin: LLE above ankle area ecchymosis; overall pale appearance Objective Labs Result Diagrams: 09/13/19 04:40 09/13/19 04:40 Labs: Laboratory Results - last 24 hr 09/12/19 09/12/19 09/12/19 05:35 05:35 05:35 WBC 9.1 RBC 3.12 L Hgb 10.5 L 10.5 L Hct 30.2 L 30.5 L MCV 97.5 MCH 33.7 MCHC 34.5 RDW 13.6 Plt Count 161 PT 17.2 H INR 1.5 H Assessment & Plan Assessment & Plan narrative: Hospitalist service is being consulted to manage patient's arrhythmia. Patient presented with AFIB RVR. AFIB RVR, acute, developed post-op complication, active - New onset (appears to be less than 48 hours), no prior known history, suspected to be a post-op complication - 150 m mg bolus amiodarone, followed by amiodarone gtt protocol - Digoxin 250 mcg IV Q4H x4 doses - Currently on warfarin anticoagulation with Lovenox bridge - STAT CBC, CMP, Mg, Trop Hypotension, acute, post-op complication, active - Finished a 1L bolus (ordered by Dr. Sanabria) - Will continue NS at 100 ml/hr and re-evaluate hourly (EF 45-55%, at present time no symptoms of volume excess) - At baseline patient is hypertensive, NEWS ANALYST antihypertensives have been held Anemia, post-op, [id number], active - HGB 10.5 (09/12 0535) - STAT CBC DJD, chronic condition, present on admission, active - s/p right total hip arthroplasty on 09/12 CAD, chronic condition, present on admission, active - H/O 1v-CABG 2001 - + dizziness / arrythmia; no active chest pain - Troponin - On ASA, BB, OK, and statin prior to orthopedic surgery; all pre-op meds w/ exception of BB have been resumed post-op History aortic valve replacement 2001 (mechanical valve), present admission, chronic condition, active - On warfarin anticoagulation at baseline, INR is subtherapeutic, currently w/ lovenox bridge - Check coags in am Dyslipidemia, chronic condition present on admission, stable - On rosuvastatin and Zetia Hypothyroidism, chronic condition, present on admission, stable - On levothyroxine, check TSH w/ am lab Full code. No formal health directive per patient, however patient designates her daughters Sharri and Angela, as surrogate decision makers. Patient's home and inpatient medications were reviewed. VTE prophylaxis: SCDs present, on warfarin/Lovenox
--- NOTE | 2019-09-12 22:14 | PC.NURSE ---
Pt found to be in SVT and transferred to ICU; given 150 mg amiodarone in 100 mLs IV STAT and 360 mg amiodarone in 200 mLs IV. BP improving 85/55.
[2019-09-12] MEDS: AMIODARONE 150 MG/3 ML VIAL IV (22:15)
[2019-09-12] MEDS: AMIODARONE 360 MG/200 ML PIGGYBACK 33.1 MG IV (22:30)
[2019-09-12 22:49] LABS: Add Manual Diff / Slide Review NO; Basophils Absolute Auto 0 /uL (0-100); Basophils Percent Auto 0.4 % (0-2); Eosinophils Absolute Auto 0 /uL (0-450); Eosinophils Percent Auto 0.3 % (2-4); Hematocrit 22.6 % (36-46); Hemoglobin 7.9 g/dL (12.0-16.0); Lymphocytes Absolute Auto 2400 /uL (1100-4500); Mean Corpuscular HGB Conc 34.7 % (30-36); Mean Corpuscular Hemoglobin 33.6 PG (26-34); Mean Corpuscular Volume 96.8 fL (80-100); Monocytes Absolute Auto 1600 /uL (0-900); Neutrophils Absolute Auto 7300 /uL (1500-7000); Neutrophils Percent Auto 64.3 % (50-75); Platelet Count 158 X10^3/uL (150-400); Red Blood Cell Count 2.34 X10^6/uL (4.0-5.2); Red Cell Distribution Width 13.4 % (11.6-14.8); White Blood Cell Count 11.4 X10^3/uL (4.5-11.0)
[2019-09-12 22:58] LABS: Alanine Aminotransferase 27 IU/L (<35); Albumin 2.6 g/dL (3.5-5.0); Alkaline Phosphatase 34 U/L (38-126); Aspartate Aminotransferase 48 IU/L (14-36); BUN Creatinine Ratio 17.8 (6-22); Bilirubin Total 0.7 mg/dL (0.2-1.3); Blood Urea Nitrogen 16 mg/dL (7-17); Calcium 7.9 mg/dL (8.4-10.2); Carbon Dioxide 26 mmol/L (22-32); Chloride 98 mmol/L (98-107); Estimated Glomerular Filt Rate > 60.0 mL/min (>60); Globulin 2.7 g/dL (1.7-4.1); Glucose 158 mg/dL (80-110); HEMOLYSIS < 15 (0-50); Potassium 4.7 mmol/L (3.4-5.1); Sodium 129 mmol/L (137-145); Total Protein 5.3 g/dL (6.3-8.2)
[2019-09-12] MEDS: DIGOXIN 500 MCG/2 ML AMPUL 250 MCG IV (23:06)
[2019-09-12 23:34] LABS: Troponin I 0.159 ng/mL (0.01-0.034)
--- NOTE | 2019-09-12 23:34 | PC.NURSE ---
2129- Responded to bedside 214. Patient in some distress with a heart rate of 200. Patient cool, clammy, and diaphoretic. Patient states she does not have chest pain, or pressure. Patient is pale but alert and oriented. Patient daughter is at bedside. 12 lead EKG obtained and call placed to Ortho. Consult to the Hospitalist obtained and patient transported to the ICU room 231. 2200- Bolus started infusing at 1000/hr. Uop for this shift 125cc hospitalist aware. Baseline vitals obtained see chart. Patient hooked up to the ICU monitors. Saturation on 2liter 100%. BP 62/50. Amiodarone 150mg IVP per Hospitalist order given at 5. Amiodarone gtt started at 33.3ml. 0. Amiodarone gtt going. Labs sent per MD order. Heart rate remains AFib at 150. Patient BP improving. Second IV started in right Antecube 20g 2300- Report given to Alva VALDIVIA. Patient remains stable at this time. Will monitor. ICU status.
[2019-09-13] VITALS (38 sets, daily range): BP systolic 76–117; BP diastolic 46–77; PULSE 91–150; RESP 14–34; TEMP 35.9–36.9; O2SAT 92–100
[2019-09-13] MEDS: CYCLOBENZAPRINE 10 MG TABLET PO ×3 (00:13→14:56)
[2019-09-13] MEDS: TRAMADOL 50 MG TABLET PO ×4 (00:14→21:38)
[2019-09-13] MEDS: ACETAMINOPHEN 325 MG TABLET 650 MG PO ×4 (00:14→18:06)
[2019-09-13] MEDS: PRAMIPEXOLE 0.25 MG TABLET 0.75 MG PO ×2 (01:51→18:25)
[2019-09-13] MEDS: DIGOXIN 500 MCG/2 ML AMPUL 250 MCG IV (03:57)
[2019-09-13] MEDS: AMIODARONE 541 MG/300.56 ML PIGGYBACK 16.667 MG IV ×2 (04:30→17:07)
--- NOTE | 2019-09-13 04:30 | PM.EVENT ---
Event Note Date Patient Seen: 09/13/19 Time Patient Seen: 04:30 Event Note: 09/12 6479 Patient follow-up Labs reviewed Anemia with drastic drop in hemoglobin Hgb 10.5 -> 7.9 - T&S patient Elevated troponin 0.159 Suspected to be in the setting of a cardiac arrhythmia, continue trending Patient is free of chest pain, however continues to be in a rapid rhythm 130-140s, she is asymptomatic 0020 Patient check Patient is asymptomatic. I am being told that family has reported significant drainage from wound. Decision made to order 1 unit PRBCs. Current HGB 7.9. This patient has a cardiac history, recently w/ symptomatic AFIB BP slightly improved, 98/55 Will continue IV fluids at this time, NS at 100 ml/hr, then will stop 0200 Patient check Blood pressures have not been significantly improved. In the past hour, SBP in the 80s, currently SBP 98/72 Patient continues to be symptomatic 0357 Checked on patient. Asymptomatic. Finished prolonged. About received 2nd dose of digoxin. 0410 Discussing patient's case with Dr. Barclay in regard to cardioversion. 0430 Dr Daniele Sanabria is a primary admitting provider for the patient. A call was placed to Dr. Sanabria to make him aware of circumstances. Physician was made aware of progressing hemodynamic instability. He was made aware of the plan of care that the patient has received up to this point. Physician was told that at this point patient will need to be cardioverted. Physician in agreement, no further feedback received. 0439 Dr. Guillory Call was placed to Dr. Guillory, on-call provider for patient's cardiology group. Dr. Barclay spoke with Dr. Guillory. Plan to proceed with cardioversion. The to perform home spoke to the family updated them on the plan of care. Decision was made for anesthesia to provide sedation. Anesthesia was contacted / consulted, Dr. Gillette, and plan of care discussed. 0550 Anesthesia on site, prepping for procedure 0600 The procedure will was discussed with family earlier by Dr. Barclay. I have reviewed procedure w/ two daughters once again. Family is comfortable in pursuing treatment. Patient consent obtained and procedure discussed Dr. Barclay / Dr. Gillette 0600. Time-out was done prior to procedure Anesthesia provided sedation (refer to anesthesia notes) 0607 Patient was cardioverted 150J, post cardioversion rhythm continues to be AFIB RVR 0608 Patient cardioverted with 200J, successful, with change in rhythm to sinus tachycardia (rate 99-102) Overall tolerated procedure well. Hypotensive initially, gradually improving. Suspected to be in the setting of anesthesia. Post-procedural EKG. ST w/ premature ventricular complexes. 0646 Patient is resting in room. Awake and alert. Oriented x3. Complaints of right hip pain. SBP [id number] 80s. HR is regular at 96 bpm. Continue to monitor patient closely Family has been made aware of events that have been taking place in of patient's overall status. Present time monitor blood pressure closely in her overall hemodynamics status. Will discuss with Dr. Díaz
[2019-09-13 05:22] LABS: Hemoglobin 9.1 g/dL (12.0-16.0); Mean Corpuscular HGB Conc 34.8 % (30-36); Mean Corpuscular Hemoglobin 32.5 PG (26-34); Mean Corpuscular Volume 93.3 fL (80-100); Platelet Count 153 X10^3/uL (150-400); Red Blood Cell Count 2.79 X10^6/uL (4.0-5.2); Red Cell Distribution Width 14.3 % (11.6-14.8); White Blood Cell Count 13.7 X10^3/uL (4.5-11.0)
[2019-09-13 05:24] LABS: Hematocrit 26.1 % (36-46)
[2019-09-13 05:39] LABS: BUN Creatinine Ratio 25.7 (6-22); Blood Urea Nitrogen 18 mg/dL (7-17); Calcium 7.6 mg/dL (8.4-10.2); Carbon Dioxide 23 mmol/L (22-32); Chloride 96 mmol/L (98-107); Estimated Glomerular Filt Rate > 60.0 mL/min (>60); Glucose 128 mg/dL (80-110); HEMOLYSIS < 15 (0-50); Potassium 4.7 mmol/L (3.4-5.1); Sodium 126 mmol/L (137-145)
[2019-09-13 05:50] LABS: INR 2.1 (0.9-1.3); Prothrombin Time 24.4 SECONDS (10.1-12.7)
[2019-09-13 06:05] LABS: Troponin I 0.362 ng/mL (0.01-0.034)
[2019-09-13 06:43] LABS: Thyroid Stimulating Hormone 3.93 uIU/mL (0.47-4.68)
[2019-09-13] MEDS: LEVOTHYROXINE 125 MCG TABLET PO (06:46)
--- NOTE | 2019-09-13 07:25 | PC.NURSE ---
Performance Analyst Note-Patient remained in A-fib RVR with LBBB, rate 140s, amiodarone infusing per protocol throughout night. IV Digoxin given as ordered. She has been hypotensive 80s-90s/50s MAP 60s, see vital trends. Tolerated 1 unit PRBCs for H/H 7.9/22.6, increased to 9.1/26.1, drsg to Rt hip D/I with marked shadow drainage, no increase noted. CMS intact. Denies chest pain or dyspnea, medicated with Tylenol, Tramadol, and Flexeril for pain to Rt hip and thigh. Mirapex for restless legs. At 0600 decision from Juan Manuel Brown to cadiovert with ER MD and anesthesia Dr Gillette-See procedure notes. Patient tolerated procedure well, into SR/ST rate 90s at 0608. Amiodarone continues at 16.7mg/hr.
--- NOTE | 2019-09-13 07:39 | DI.RAD.S_ITS ---
PROCEDURE: XR CHEST 1V INDICATIONS: arrhythmia, elevated troponin TECHNIQUE: One view of the chest was acquired. COMPARISON: [facility], CR, XR PELVIS 1-2V, 09/10/2019, 9:49. FINDINGS: Surgical changes and devices: Sternotomy wires are seen. Lower thoracic vertebroplasty cement is seen. Lungs and pleura: Lungs are clear. No pleural effusions or pneumothorax. Mediastinum: The cardiac contours are within normal limits. The aorta demonstrates calcification and tortuosity. Bones and chest wall: No suspicious bony lesions. Age-appropriate bony degenerative changes are seen. Right shoulder calcific tendinopathy can be seen. IMPRESSION: No acute abnormality is seen on this portable chest examination. Postoperative and degenerative changes are seen. Dictated by: Jeff Nichols M.D. on 09/13/2019 at 7:00 Approved by: Jeff Nichols M.D. on 09/13/2019 at 7:02
--- NOTE | 2019-09-13 08:41 | DI.ECHO.S_ITS ---
[facility]---------+ [facility] +---------+ : : [address] [place] [address] : : : : [id number] : : : : Phone: [phone]+ Echocardiogram Report + + :Name: BRIAN KAPLAN Study Date: 09/15/2019 Height: 64 in : :[facility] Weight: 235 lb : : Gender: Female BSA: 2.1 m2 : :: 1940 Age: 79 yrs BP: 126/58 mmHg: :Reason For Study: AFIB : :Ordering Physician: Yaneth : :Hospitalist Performed By: Emma Hensley : :Referring: MAYLIN MASTERS : + + Interpretation Summary The study quality was technically difficult. Images from the parasternal window were difficult to obtain and are suboptimal in quality. 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 The aortic valve is not well visualized. The valve type is not known. The transvalvular velocities and mean gradient are similar to the reports from the outside hospital. -There is moderate to severe mitral annular calcification, more prominent in the posterior annulus with moderate mitral stenosis. Mean gradient is 6 mmHg at heart rate of 84 bpm. -The left atrium is severely dilated. -The right ventricle is at the upper limits of normal in size; RV systolic function is normal. -The right ventricular systolic pressure is estimated to be at least 43 mmHg based on an estimated right atrial pressure of 3 mm Hg. -No prior echo in our system for comparison. Procedure: A two-dimensional transthoracic echocardiogram with color flow and Doppler was performed. Images from the parasternal window were difficult to obtain and are suboptimal in quality. There is no prior echocardiogram noted for this patient. The study quality was technically difficult. The patient was in normal sinus rhythm during the exam. Left Ventricle: The left ventricle is normal in size and wall thickness. The ejection fraction is estimated to be 55-60%. There are no obvious focal wall motion abnormalities noted but poor endocardial definition reduces the sensitivity for the detection of such. Diastolic function could not be accurately assessed due to confounding valvular disease. Right Ventricle: The right ventricle is at the upper limits of normal in size. The right ventricular systolic function is normal. Atria: The left atrium is severely dilated. The right atrium is mildly dilated. There is no Doppler evidence for an interatrial shunt. Mitral Valve: The mitral valve leaflets are moderately calcified. There is moderate to severe mitral annular calcification. There is moderate mitral stenosis. There is no mitral regurgitation. Aortic Valve: The prosthetic aortic valve is not well visualized. The peak aortic velocity is 3.4 m/sec. The aortic valve mean gradient is 25 mmHg. There is mild aortic regurgitation. Tricuspid Valve: The tricuspid valve leaflets are thin and pliable. There is moderate tricuspid regurgitation. The right ventricular systolic pressure is estimated to be at least 43 mmHg based on an estimated right atrial pressure of 3 mm Hg. Pulmonic Valve: The pulmonic valve is not well visualized. There is a trace or physiologic amount of pulmonic regurgitation. Great Vessels: The aortic root is not well visualized. The ascending aorta could not be visualized. The aortic arch is normal in size. The IVC is of normal diameter and collapses greater than 50% with a sniff. This suggests a low right atrial pressure of 3 mm Hg. Pericardium/ Pleura There is no pericardial effusion. MMode/2D Measurements & Calculations LVIDd: 4.8 cm LVOT diam: 2.0 cm LVIDs: 3.3 cm Ao Arch Diam (Prox Trans): 3.1 cm FS: 30.6 % IVSd: 0.94 cm LVPWd: 0.97 cm LV alvarado. diameter/BSA (cm/m^2): 2.3 LV sys. diameter/BSA (cm/m^2): 1.6 LA A2 area: 34.9 cm2 RA long axis: 5.1 cm LA A4 area: 26.7 cm2 RA area: 19.2 cm2 LA length (vol): 6.2 cm RA vol: 61.7 ml LA vol: 127.0 ml RA : 29.4 ml/m2 LA vol index: 60.6 ml/m2 IVC diam: 2.1 cm RVD1 (basal): 3.8 cm TAPSE: 1.8 cm Doppler Measurements & Calculations Ao V2 max: 342.2 cm/sec LVOT Max Cory: 142.4 cm/sec Ao V2 mean: 241.2 cm/sec LV V1 max P.1 mmHg Ao max P.8 mmHg LV V1 VTI: 30.1 cm Ao mean P.3 mmHg WILLIAN(I,D): 1.5 cm2 Ao V2 VTI: 66.1 cm WILLIAN(V,D): 1.3 cm2 sev ratio: 0.46 WILLIAN indexed to BSA (cm^2/m^2): 0.69 MV E max cory: 143.4 cm/sec TR max cory: 301.8 cm/sec MV A max cory: 155.9 cm/sec TR max P.6 mmHg MV E/A: 0.92 PA V2 max: 72.7 cm/sec Med Peak E' Cory: 8.6 cm/sec PA V2 mean: 52.9 cm/sec E/E' med: 16.6 PA mean P.2 mmHg Lat Peak E' Cory: 10.3 cm/sec PA pr(Accel): 24.5 mmHg E/E' lat: 13.9 PA Accel Time: 0.12 sec E/e' average: 15.3 MV dec time: 0.36 sec MV P1/2t: 106.5 msec MVA(VTI): 2.1 cm2 MV V2 mean: 119.0 cm/sec MV P1/2t max cory: 145.0 cm/sec MV mean P.3 mmHg MVA(P1/2t): 2.1 cm2 MV V2 VTI: 45.8 cm SV(LVOT): 96.1 ml Electronically signed by: Anthony He M.D. on Reading Physician:09/15/2019 02:13 PM
[2019-09-13] MEDS: ASPIRIN EC 81 MG TABLET PO (08:58)
--- NOTE | 2019-09-13 09:30 | PT.IPTN ---
Current Diagnoses Unilateral primary osteoarthritis, right hip (09/10/19) Surgery Performed Operation Date: 09/10/19 07:45 Actual Procedures p Total Hip Arthroplasty(Right) - Rod Randhawa MD Physical Therapy Treatment Note M2 PT-IP Current Condition Start: 09/10/19 17:18 Freq: NEEDED Status: Active Protocol: Document 09/10/19 15:25 AB (Rec: 09/10/19 17:31 AB [id number]) Physical Therapy Current Condition Current Condition Evaluation Date 09/10/19 Treatment Diagnosis s/p R PRIETO posterior approach; difficulty in walking Onset Date 09/10/2019 Precautions Posterior Hip Precautions No Hip Flexion > 90 degrees,No Hip Internal Rotation,No Hip Adduction Weight Bearing Status Weight Bearing Status Weight Bear as Tolerated Allowed Weight Bearing Amount (enter % RLE WBAT or #) (%) M3 PT-IP Subjective Start: 09/10/19 17:18 Freq: NEEDED Status: Active Protocol: Document 09/13/19 08:50 LRN (Rec: 09/13/19 09:41 LRN [id number]) Subjective Physical Therapy Visit Type Type Treatment Note Visit Start Time 08:50 Visit Stop Time 09:20 Total Visit Minutes 30 Notes 2 DA's in room, joined later by spouse. RN administered pn meds to pt and removed stickers from pt's body. RN okayed removal of oximeter and BP cuff, RN to replace BP cuff. Physical Therapy Visit Comments Patient Comments RN reported pt had a very difficulty night. Pt states they were trying to save her life through the night. Pt agreeable to bed ex's only. Pt states massage after ex was helpful to relieve ms spasms. She is also doing some self massage to R thigh. M4 PT-IP Mobility and Gait Start: 09/10/19 17:18 Freq: NEEDED Status: Active Protocol: Document 09/12/19 14:10 LJ (Rec: 09/12/19 15:56 LJ [id number]) PT-Bed Mobility Assessment Scooting Scooting Up and Down in Bed Maximum Assistance,Dependent PT-Transfer Assessment Comments Mobility Comments Pt was unable to reposition or even attempt to sit up in bed . Muscle spasms would occur every time pt initiated movement with RLE Gait Assessment Comments Gait Comments unable at this time Stair Climbing Assessment Comments Stair Climbing Comments unable at this time. Pt unable to get out of bed due to pain and muscle spasms PT-Balance Assessment Sitting Balance and Reactions Static Sitting Balance Ability Good Dynamic Sitting Balance Ability Fair Standing Balance and Reactions Static Standing Balance Ability Good Dynamic Standing Balance Ability Fair Device Used FWW M5 PT-IP Objective Assessments Start: 09/10/19 17:18 Freq: NEEDED Status: Active Protocol: Document 09/10/19 15:25 AB (Rec: 09/10/19 17:31 AB [id number]) Orientation Orientation/Cognition Level of Alertness Alert Orientation Name,Place,Situation Language Function Ability No Deficits Noted Safety Awareness Decreased Safety Awareness Memory Description Short Term Impaired Gross Range of Motion Lower Extremity ROM Assessment Right Impaired Impairments RLE tightness and increase guarding affecting PROM Strength Lower Extremity Strength Assessment Bilaterally Impaired Hip R: 3+/5 L: 4-/5 Knee R: 3-/5 L: 3+/5 Sensation Assessment Sensation Gross Sensation WNL Muscle Tone Muscle Tone WNL Yes M6 PT-IP Treatment Start: 09/10/19 17:18 Freq: NEEDED Status: Active Protocol: Document 09/13/19 08:50 LRN (Rec: 09/13/19 09:41 LRN [id number]) Physical Therapy Treatment Exercises Exercises Ankle Pumps,Gluteal Sets,Quad Sets,Heel Slides,Straight Leg Raises Knee ROM Measurement Pt tolerated ~15 deg's of assisted knee flex. Other Treatments Other Treatment Performed Other ex: Hip AB/AD. Pt assisted with active movement ex's. I/S pt in breathing coodination with ex for pain management. STM to anterior R thigh, mid thigh and near groin. Vitals: Start: HR 102, SpO2 93 %, BP 95/55. End of Rx: HR 96, SpO2 94%, BP - RN Recommended held for next vital assessment to be done soon. M7 PT-IP Assessment and Plan Start: 09/10/19 17:18 Freq: NEEDED Status: Active Protocol: Document 09/13/19 08:50 LRN (Rec: 09/13/19 09:41 LRN [id number]) PT Summary Assessment and Plan Potential Rehabilitation Potential Fair Status of Condition at Evaluation Evolving Summary Impairments Pain,ROM,Strength,Balance, Coordination,Sensation,Tone, Cognition,Bed Mobility, Transfers,Gait,Activity Tolerance Assessment Summary Pt cont to be very limited in mobility by pain, muscle spasms, and weakness. She was able to tolerate more than usual today as indicated by her DA. Pt was able to move her leg ~10-15 deg's of assist for flex, AB and SLR. Her muscle spasms are a little less and was decreased post therapy with STM. The pt refused trying to get out of bed; therefore she was not able to tolerate any functional mobility. The DA indicated the pt will be going home; therefore a discussion with family regarding placement of pt at time of discharge. Goals Bed Mobility Goal Standby Assistance Transfer Goal Standby Assistance,Front Wheeled Walker Gait Goal Standby Assistance,Front Wheel Walker Gait Distance 100 Other Goals up/down 1 step using FWW CGA Days to Meet Goals 5 Frequency of Treatment Frequency Of Treatment Twice a Day Treatment Plan Physical Therapy Treatment Plan Bed Mobility Training,Transfer Training,Gait Training, Therapeutic Exercise,Balance Retraining,Post Op Education, Discharge Planning,Hot or Cold Pack,Neuromuscular Re-ed, Coordination Retraining,Manual Therapy Other Recommendations and Next Treatment check vitals, bed ex Focus coordinating breathing for pain, review PRIETO precautions, transfers, ambulation, caregiver training when appropriate. Discuss DC plans . Recommendations To Nursing Amount of Assist Needed 1 Person Assist,2 Person Assist Discharge Recommendations PT Discharge Recommendations SNF Rehab Other Discharge Recommendations see assessment summary Transportation Needs at Discharge Private Vehicle,Wheelchair/ Cabulance
[2019-09-13] MEDS: SODIUM CHLORIDE 0.9% 500 ML 1000 ML IV ×2 (13:20→14:00)
--- NOTE | 2019-09-13 14:04 | PT.IPTN ---
Current Diagnoses Unilateral primary osteoarthritis, right hip (09/10/19) Surgery Performed Operation Date: 09/10/19 07:45 Actual Procedures p Total Hip Arthroplasty(Right) - Rod Randhawa MD Physical Therapy Treatment Note M2 PT-IP Current Condition Start: 09/10/19 17:18 Freq: NEEDED Status: Active Protocol: Document 09/10/19 15:25 AB (Rec: 09/10/19 17:31 AB [id number]) Physical Therapy Current Condition Current Condition Evaluation Date 09/10/19 Treatment Diagnosis s/p R PRIETO posterior approach; difficulty in walking Onset Date 09/10/2019 Precautions Posterior Hip Precautions No Hip Flexion > 90 degrees,No Hip Internal Rotation,No Hip Adduction Weight Bearing Status Weight Bearing Status Weight Bear as Tolerated Allowed Weight Bearing Amount (enter % RLE WBAT or #) (%) M3 PT-IP Subjective Start: 09/10/19 17:18 Freq: NEEDED Status: Active Protocol: Document 09/13/19 13:12 LJ (Rec: 09/13/19 14:04 LJ [email or web address]) Subjective Physical Therapy Visit Type Type Treatment Note Visit Start Time 13:12 Visit Stop Time 13:36 Total Visit Minutes 24 Notes Many family members in room with pt. Nursing administering a bolus. States pt has been stable for several hours Therapy Pain Assessment Pain When Pain Assessed At Rest Pain Present Pain Present Pain Reported M4 PT-IP Mobility and Gait Start: 09/10/19 17:18 Freq: NEEDED Status: Active Protocol: Document 09/12/19 14:10 LJ (Rec: 09/12/19 15:56 LJ [email or web address]) PT-Bed Mobility Assessment Scooting Scooting Up and Down in Bed Maximum Assistance,Dependent PT-Transfer Assessment Comments Mobility Comments Pt was unable to reposition or even attempt to sit up in bed . Muscle spasms would occur every time pt initiated movement with RLE Gait Assessment Comments Gait Comments unable at this time Stair Climbing Assessment Comments Stair Climbing Comments unable at this time. Pt unable to get out of bed due to pain and muscle spasms PT-Balance Assessment Sitting Balance and Reactions Static Sitting Balance Ability Good Dynamic Sitting Balance Ability Fair Standing Balance and Reactions Static Standing Balance Ability Good Dynamic Standing Balance Ability Fair Device Used FWW M5 PT-IP Objective Assessments Start: 09/10/19 17:18 Freq: NEEDED Status: Active Protocol: Document 09/10/19 15:25 AB (Rec: 09/10/19 17:31 AB [id number]) Orientation Orientation/Cognition Level of Alertness Alert Orientation Name,Place,Situation Language Function Ability No Deficits Noted Safety Awareness Decreased Safety Awareness Memory Description Short Term Impaired Gross Range of Motion Lower Extremity ROM Assessment Right Impaired Impairments RLE tightness and increase guarding affecting PROM Strength Lower Extremity Strength Assessment Bilaterally Impaired Hip R: 3+/5 L: 4-/5 Knee R: 3-/5 L: 3+/5 Sensation Assessment Sensation Gross Sensation WNL Muscle Tone Muscle Tone WNL Yes M6 PT-IP Treatment Start: 09/10/19 17:18 Freq: NEEDED Status: Active Protocol: Document 09/13/19 13:12 (Rec: 09/13/19 14:04 [id number]) Physical Therapy Treatment Exercises Exercises Ankle Pumps,Gluteal Sets Other Treatments Other Treatment Performed STM at right hip lflexors, ITB , and anterior thigh AAROM in AB/ADD, hip flex, heel slides M7 PT-IP Assessment and Plan Start: 09/10/19 17:18 Freq: NEEDED Status: Active Protocol: Document 09/13/19 13:12 (Rec: 09/13/19 14:04 [id number]) PT Summary Assessment and Plan Potential Rehabilitation Potential Fair Status of Condition at Evaluation Evolving Summary Impairments Pain,ROM,Strength,Balance, Coordination,Sensation,Tone, Cognition,Bed Mobility, Transfers,Gait,Activity Tolerance Assessment Summary Pt is still limited in mobility due to pain, weakness , and muscle spasms. Soft tissue massage performed after initial attempt to range pt proved to be causing spasms and was too painful for pt to continue. Incremental movement of hip abnd knee successful at increasing andle of knee and hip flexion Goals Bed Mobility Goal Standby Assistance Transfer Goal Standby Assistance,Front Wheeled Walker Gait Goal Standby Assistance,Front Wheel Walker Gait Distance 100 Other Goals up/down 1 step using FWW CGA Days to Meet Goals 5 Frequency of Treatment Frequency Of Treatment Twice a Day Treatment Plan Physical Therapy Treatment Plan Bed Mobility Training,Transfer Training,Gait Training, Therapeutic Exercise,Balance Retraining,Post Op Education, Discharge Planning,Hot or Cold Pack,Neuromuscular Re-ed, Coordination Retraining,Manual Therapy Other Recommendations and Next Treatment check vitals, bed ex Focus coordinating breathing for pain, review PRIETO precautions, transfers, ambulation, caregiver training when appropriate. Discuss DC plans . Recommendations To Nursing Amount of Assist Needed 1 Person Assist,2 Person Assist Discharge Recommendations PT Discharge Recommendations SNF Rehab Transportation Needs at Discharge Private Vehicle,Wheelchair/ Cabulance
--- NOTE | 2019-09-13 14:33 | P.PN_ITS ---
Subjective Subjective Date Patient Seen: 09/13/19 Interval history: Glenys Munoz is a 79-year-old female with a past medical history significant for coronary artery disease status post CABG x1 vessel, cardiomyopathy, left bundle branch block, aortic stenosis status post mechanical aortic valve on warfarin, hypertension, hyperlipidemia, hypothyroidism, osteoarthritis, osteoporosis, restless leg syndrome, and morbid obesity who presented for elective right total hip arthroplasty. Medicine team has been consulted to manage patient's atrial fibrillation with RVR. The patient is resting in bed and appears comfortable. She is mildly somnolent and endorses fatigue as she has not slept much. Her lightheadedness/dizziness and diaphoresis resolved with successful cardioversion to normal sinus rhythm. She has no complaints and denies headache, chest pain, shortness of breath, abdominal pain, nausea, vomiting, fever, chills, dysuria, diarrhea or constipation. She endorses poor appetite and has had little PO intake of food or fluid. She has had minimal urine output through her Hamilton catheter and her blood pressure has been low normal, therefore, gave the patient 1 L bolus of fluid which her blood pressure readily responded. She is voiding via Hamilton catheter. She has not had a BM since admission and a bowel regimen has been implemented. Continue PT and OT as blood pressure permits. Exam Vital Signs (past 8 hours): - 09/13/19 07:15 09/13/19 08:00 09/13/19 08:30 Temperature 97.8 F Pulse Rate 97 H 97 H Respiratory Rate 19 16 Blood Pressure 97/54 L 92/58 L Pulse Oximetry 100 98 09/13/19 09:32 09/13/19 10:28 09/13/19 11:25 Temperature Pulse Rate 102 H 101 H Respiratory Rate 17 14 Blood Pressure 89/57 L 92/57 L Pulse Oximetry 94 98 99 09/13/19 11:26 09/13/19 11:39 09/13/19 12:20 Temperature Pulse Rate 99 H 101 H Respiratory Rate 18 19 Blood Pressure 81/51 L 92/55 L Pulse Oximetry 97 92 96 09/13/19 13:00 09/13/19 13:30 09/13/19 13:45 Temperature Pulse Rate 103 H 99 H 94 H Respiratory Rate 23 Blood Pressure 79/48 L 76/46 L 79/49 L Pulse Oximetry 98 09/13/19 14:05 Temperature Pulse Rate 95 H Respiratory Rate Blood Pressure 95/51 L Pulse Oximetry Oxygen Delivery Method Room Air Oxygen Flow Rate 0 Narrative Exam Narrative: General: Elderly female lying in bed and in no acute distress, well-developed, pallor, somnolent but arousable and appropriately interactive. HEENT: Normocephalic, atraumatic. External ears without defect. Pupils equal, round, and reactive to light. Pale sclera, moist conjunctivae, and no lid lag. Oropharynx free of erythema and cobble stoning with moist mucosa. Neck: Supple with full range of motion. No jugular venous distension. No lymphadenopathy or thyromegaly. Cardiovascular: Regular rate and rhythm with ejection murmur. No rubs or gallops appreciated. Pulmonary: Clear to auscultation bilaterally without crackles, wheezes, or rhonchi. Normal respiratory effort with no use of accessory muscles. Abdomen: Soft, hyperactive bowel sounds, nontender, nondistended. No hepatosplenomegaly or masses appreciated. Extremities: No clubbing, cyanosis, or edema. Skin: Normal temperature, turgor, and texture; no rash, ulcers, or subcutaneous nodules appreciated. Neurological: Cranial nerves grossly intact. Psychiatric: Normal mood and affect. Alert and oriented to person, place, and time. Objective Labs Result Diagrams: 09/13/19 04:40 09/13/19 04:40 Labs: Laboratory Results - last 24 hr 09/12/19 09/12/19 09/12/19 05:35 22:40 22:40 WBC 9.1 11.4 H RBC 3.12 L 2.34 L Hgb 10.5 L 7.9 L Hct 30.5 L 22.6 L MCV 97.5 96.8 MCH 33.7 33.6 MCHC 34.5 34.7 RDW 13.6 13.4 Plt Count 161 158 Neut % (Auto) 64.3 Lymph % (Auto) 21.0 L [place] % (Auto) 14.0 Eos % (Auto) 0.3 L Baso % (Auto) 0.4 Neut # (Auto) 7300 H Lymph # (Auto) 2400 [place] # (Auto) 1600 H Eos # (Auto) 0 Baso # (Auto) 0 PT INR Sodium 129 L Potassium 4.7 Chloride 98 Carbon Dioxide 26 BUN 16 Creatinine 0.90 Estimated GFR > 60.0 BUN/Creatinine Ratio 17.8 Glucose 158 H Calcium 7.9 L Magnesium Total Bilirubin 0.7 AST 48 H ALT 27 Alkaline Phosphatase 34 L Troponin I 0.159 H* Total Protein 5.3 L Albumin 2.6 L Globulin 2.7 Albumin/Globulin Ratio 1.0 TSH Blood Type Antibody Screen Crossmatch 09/12/19 09/12/19 09/13/19 22:40 23:45 04:40 WBC 13.7 H RBC 2.79 L Hgb 9.1 L Hct 26.1 L MCV 93.3 D MCH 32.5 MCHC 34.8 RDW 14.3 Plt Count 153 Neut % (Auto) Lymph % (Auto) [place] % (Auto) Eos % (Auto) Baso % (Auto) Neut # (Auto) Lymph # (Auto) [place] # (Auto) Eos # (Auto) Baso # (Auto) PT INR Sodium Potassium Chloride Carbon Dioxide BUN Creatinine Estimated GFR BUN/Creatinine Ratio Glucose Calcium Magnesium 2.0 Total Bilirubin AST ALT Alkaline Phosphatase Troponin I Total Protein Albumin Globulin Albumin/Globulin Ratio TSH Blood Type A Positive Antibody Screen Negative Crossmatch See Detail 09/13/19 09/13/19 09/13/19 04:40 04:40 04:40 WBC RBC Hgb Hct MCV MCH MCHC RDW Plt Count Neut % (Auto) Lymph % (Auto) [place] % (Auto) Eos % (Auto) Baso % (Auto) Neut # (Auto) Lymph # (Auto) [place] # (Auto) Eos # (Auto) Baso # (Auto) PT 24.4 H D INR 2.1 H Sodium 126 L Potassium 4.7 Chloride 96 L Carbon Dioxide 23 BUN 18 H Creatinine 0.70 Estimated GFR > 60.0 BUN/Creatinine Ratio 25.7 H Glucose 128 H Calcium 7.6 L Magnesium Total Bilirubin AST ALT Alkaline Phosphatase Troponin I 0.362 H* Total Protein Albumin Globulin Albumin/Globulin Ratio TSH Blood Type Antibody Screen Crossmatch 09/13/19 09/13/19 04:40 04:40 WBC RBC Hgb Hct MCV MCH MCHC RDW Plt Count Neut % (Auto) Lymph % (Auto) [place] % (Auto) Eos % (Auto) Baso % (Auto) Neut # (Auto) Lymph # (Auto) [place] # (Auto) Eos # (Auto) Baso # (Auto) PT INR Sodium Potassium Chloride Carbon Dioxide BUN Creatinine Estimated GFR BUN/Creatinine Ratio Glucose Calcium Magnesium 2.0 Total Bilirubin AST ALT Alkaline Phosphatase Troponin I Total Protein Albumin Globulin Albumin/Globulin Ratio TSH 3.93 Blood Type Antibody Screen Crossmatch Assessment & Plan Assessment & Plan narrative: Glenys Munoz is a 79-year-old female with a past medical history significant for coronary artery disease status post CABG x1 vessel, cardiomyopathy, left bundle branch block, aortic stenosis status post mechanical aortic valve on warfarin, hypertension, hyperlipidemia, hypothyroidism, osteoarthritis, osteoporosis, restless leg syndrome, and morbid obesity who presented for elective right total hip arthroplasty. Medicine team has been consulted to manage patient's atrial fibrillation with RVR. 1. Acute postoperative atrial fibrillation with RVR, not present on admission. Resolved. -New onset (appears to be less than 48 hours), no prior known history, suspected to be a postoperative complication. -As anticipated patient has troponin leak due to demand ischemia in setting of atrial fibrillation with RVR and later had a cardioversion x2. Patient denies chest pain or ACS symptoms. No need to further trend troponin. -TSH within normal limits. -Electrolytes within normal limits. Continue to monitor electrolytes closely and replete as necessary. Goal K > 4.0 and Mg > 2.0. -Received amiodarone 150 mg bolus, followed by amiodarone gtt protocol. Per on- call planer operator / grader Dr. Linn for patient's planer operator / grader Dr. River, he recommended once amiodarone infusion has finished to start amiodarone 400 mg 3 times daily for 1 week, 400 mg twice daily for 1 week and then 200 mg daily thereafter. -Received digoxin 250 mcg IV Q4H x 2 doses then discontinued as patient was cardioverted to sinus rhythm. -Continue warfarin at reduced dose of 2.5 mg daily (due to amiodarone which interferes with warfarin metabolism). Discontinued Lovenox and held aspirin. -Patient had successful cardioversion x 2 to sinus rhythm which she is currently maintaining. 2. Acute postoperative hypotension in setting of chronic hypertension, not present on admission. Active. -Patient continues to have low normal blood pressure that is fluid responsive and likely secondary to acute blood loss as below and decreased PO intake. -Continue normal saline 84 mL/hr and re-evaluate often (EF 45-55%, at present time no symptoms of volume excess). -Held antihypertensives including carvedilol 25 mg twice daily and lisinopril 5 mg daily at bedtime. 3. Acute blood loss anemia, not present on admission. Active. -Initial hemoglobin 11.8. Hemoglobin continued to trend down to 7.9 and received 1 unit PRBC. Hemoglobin now 9.1. -Continue to monitor H&H every 12 hours or more often if patient becomes unstable or increasingly hypotensive. -Continue warfarin at reduced dose of 2.5 mg daily (due to amiodarone which interferes with warfarin metabolism). Discontinued Lovenox and held aspirin. 4. DJD status post right total arthroplasty, acute on chronic, present on admission. Active. -Status post right total hip arthroplasty on 09/12. -Continue postoperative and pain management per Orthopedic surgery. 5. CAD, chronic condition, present on admission, active -Patient has history of CABG x1 vessel. -Patient endorse lightheadedness and dizziness with diaphoresis due to arrhythmia which has resolved with cardioversion. Denies chest pain or ACS symptoms. -Held aspirin, carvedilol, and lisinopril due to hypotension related to acute blood loss as above. Continue rosuvastatin 40 mg at bedtime. 6. History of mechanical aortic valve, present admission, chronic. Stable. -Continue warfarin at reduced dose of 2.5 mg daily (due to amiodarone which interferes with warfarin metabolism). Discontinued Lovenox and held aspirin. Per on-call planer operator / grader Dr. Linn for the patient's planer operator / grader Dr. River, he recommended continue warfarin at lower dose and if INR falls and patient needs to be bridged to use heparin gtt rather than Lovenox. -Continue to monitor INR daily. 7. Hyperlipidemia, chronic, present on admission. Stable. -Continue rosuvastatin 40 mg daily at bedtime and ezetimibe 10 mg daily at bedtime. 8. Hypothyroidism, chronic condition, present on admission, stable -TSH normal at 3.93. Continue levothyroxine 125 mcg daily. Full code. No formal health directive per patient, however patient designates her daughters Sharri and Angela, as surrogate decision makers. VTE prophylaxis: Warfarin and SCDs. Thank you for this most interesting consult. Medicine team will continue to follow along with you.
[2019-09-13] MEDS: SODIUM CHLORIDE 0.9% 1,000 ML 84 ML IV (15:21)
--- NOTE | 2019-09-13 15:22 | PC.NURSE ---
Day Shift Note Patient ST with BBB this AM, HR in the low 100s, BP 90/50s. SpO2 95% on RA, encouraged to use IS and to cough and deep breathe- using IS independently. Amiodarone gtt infusing at 0.5 mg/min. BP noted to be trending down 1140, 80s/40s (see VS trends), MD updated and order received to titrated amiodarone gtt down to 0.25 mg/min and reassess. BP continued to decrease to 70s systolic, MAP in the 50s. MD updated and order received for 500 ml bolus - pt exhibited improvement in HR (down to 90s) and BP (MAP greater than 60). Second 500 ml NS bolus infused per MD order and N started at 84 ml/hr. Amiodarone gtt increased to 0.5 mg/min per MD. Urine output 175 ml this shift and reported to MD. Pressure dressing to right hip changed by PA at bedside this afternoon.
--- NOTE | 2019-09-13 15:25 | P.PN_ITS ---
Subjective Subjective Date Patient Seen: 09/13/19 Time Patient Seen: 15:25 Interval history: POD #3 s/p Right PRIETO posterior approach with Dr. Randhawa. Patient was cardioverted early this morning. Her lightheadedness/dizziness and diaphoresis resolved with successful cardioversion to normal sinus rhythm. Appreciate hospitalist management. She has been managing IV boluses. She endorses poor appetite and has had little PO intake of food or fluid. She has had minimal urine output through her Hamilton catheter and her blood pressure has been low normal. Her pain is well controlled. Her INR was 2.1 today. Exam Vital Signs (past 8 hours): - 09/13/19 08:00 09/13/19 08:30 09/13/19 09:32 Temperature 97.8 F Pulse Rate 97 H 102 H Respiratory Rate 16 17 Blood Pressure 92/58 L 89/57 L Pulse Oximetry 98 94 09/13/19 10:28 09/13/19 11:25 09/13/19 11:26 Temperature Pulse Rate 101 H Respiratory Rate 14 Blood Pressure 92/57 L Pulse Oximetry 98 99 97 09/13/19 11:39 09/13/19 12:20 09/13/19 13:00 Temperature Pulse Rate 99 H 101 H 103 H Respiratory Rate 18 19 Blood Pressure 81/51 L 92/55 L 79/48 L Pulse Oximetry 92 96 09/13/19 13:30 09/13/19 13:45 09/13/19 14:05 Temperature Pulse Rate 99 H 94 H 95 H Respiratory Rate 23 Blood Pressure 76/46 L 79/49 L 95/51 L Pulse Oximetry 98 09/13/19 14:45 Temperature 97.4 F L Pulse Rate 92 H Respiratory Rate 17 Blood Pressure 111/56 L Pulse Oximetry 95 Oxygen Delivery Method Room Air Oxygen Flow Rate 0 Narrative Exam Narrative: Patient lying in bed in no acute distress. She is alert and oriented. patient rolled onto her side and dressing removed. 4x4s and ABDs saturated with serosanguineous fluid. midline of incision when palpated actively draining very small amount of bright red blood. Hematoma throughout incision. No erythema or signs of infection. New dressing applied with 4x4s and ABD. Instructed nursing to do compression dressings daily. Calves are soft, compressible, nontender bilaterally. Pulses are symmetrical. Objective Labs Result Diagrams: 09/13/19 04:40 09/13/19 04:40 Labs: Laboratory Results - last 24 hr 09/12/19 09/12/19 09/12/19 05:35 22:40 22:40 WBC 9.1 11.4 H RBC 3.12 L 2.34 L Hgb 10.5 L 7.9 L Hct 30.5 L 22.6 L MCV 97.5 96.8 MCH 33.7 33.6 MCHC 34.5 34.7 RDW 13.6 13.4 Plt Count 161 158 Neut % (Auto) 64.3 Lymph % (Auto) 21.0 L [place] % (Auto) 14.0 Eos % (Auto) 0.3 L Baso % (Auto) 0.4 Neut # (Auto) 7300 H Lymph # (Auto) 2400 [place] # (Auto) 1600 H Eos # (Auto) 0 Baso # (Auto) 0 PT INR Sodium 129 L Potassium 4.7 Chloride 98 Carbon Dioxide 26 BUN 16 Creatinine 0.90 Estimated GFR > 60.0 BUN/Creatinine Ratio 17.8 Glucose 158 H Calcium 7.9 L Magnesium Total Bilirubin 0.7 AST 48 H ALT 27 Alkaline Phosphatase 34 L Troponin I 0.159 H* Total Protein 5.3 L Albumin 2.6 L Globulin 2.7 Albumin/Globulin Ratio 1.0 TSH Blood Type Antibody Screen Crossmatch 09/12/19 09/12/19 09/13/19 22:40 23:45 04:40 WBC 13.7 H RBC 2.79 L Hgb 9.1 L Hct 26.1 L MCV 93.3 D MCH 32.5 MCHC 34.8 RDW 14.3 Plt Count 153 Neut % (Auto) Lymph % (Auto) [place] % (Auto) Eos % (Auto) Baso % (Auto) Neut # (Auto) Lymph # (Auto) [place] # (Auto) Eos # (Auto) Baso # (Auto) PT INR Sodium Potassium Chloride Carbon Dioxide BUN Creatinine Estimated GFR BUN/Creatinine Ratio Glucose Calcium Magnesium 2.0 Total Bilirubin AST ALT Alkaline Phosphatase Troponin I Total Protein Albumin Globulin Albumin/Globulin Ratio TSH Blood Type A Positive Antibody Screen Negative Crossmatch See Detail 09/13/19 09/13/19 09/13/19 04:40 04:40 04:40 WBC RBC Hgb Hct MCV MCH MCHC RDW Plt Count Neut % (Auto) Lymph % (Auto) [place] % (Auto) Eos % (Auto) Baso % (Auto) Neut # (Auto) Lymph # (Auto) [place] # (Auto) Eos # (Auto) Baso # (Auto) PT 24.4 H D INR 2.1 H Sodium 126 L Potassium 4.7 Chloride 96 L Carbon Dioxide 23 BUN 18 H Creatinine 0.70 Estimated GFR > 60.0 BUN/Creatinine Ratio 25.7 H Glucose 128 H Calcium 7.6 L Magnesium Total Bilirubin AST ALT Alkaline Phosphatase Troponin I 0.362 H* Total Protein Albumin Globulin Albumin/Globulin Ratio TSH Blood Type Antibody Screen Crossmatch 09/13/19 09/13/19 04:40 04:40 WBC RBC Hgb Hct MCV MCH MCHC RDW Plt Count Neut % (Auto) Lymph % (Auto) [place] % (Auto) Eos % (Auto) Baso % (Auto) Neut # (Auto) Lymph # (Auto) [place] # (Auto) Eos # (Auto) Baso # (Auto) PT INR Sodium Potassium Chloride Carbon Dioxide BUN Creatinine Estimated GFR BUN/Creatinine Ratio Glucose Calcium Magnesium 2.0 Total Bilirubin AST ALT Alkaline Phosphatase Troponin I Total Protein Albumin Globulin Albumin/Globulin Ratio TSH 3.93 Blood Type Antibody Screen Crossmatch Assessment & Plan Post-op Postoperative Procedures: Procedures Operation Date: 09/10/19 07:45 Actual Procedures Side Surgeon p Total Hip Arthroplasty Right Rod Randhawa MD Appreciate hospitalist management and continued care. keep Hamliton until mobilizing. Plan to DC Lovenox once INR 2.5. Continue daily compression dressing changes until wound stops draining. She will continue to work with physical therapy. Plan to discharge once medically stable.
[2019-09-13] MEDS: WARFARIN 2.5 MG TABLET PO (17:42)
[2019-09-13] MEDS: SODIUM CHLORIDE 0.9% 100 ML 500 ML IV (17:42)
[2019-09-13 19:05] LABS: Hematocrit 19.7 % (36-46); Hemoglobin 6.8 g/dL (12.0-16.0)
--- NOTE | 2019-09-13 19:16 | PC.NURSE ---
Notified by lab that H/H 6.8.7 Dr Díaz has asked Dr Hull to come eval patient. Will transfuse once blood is ready.
--- NOTE | 2019-09-13 19:45 | P.PN_ITS ---
Subjective Subjective Date Patient Seen: 09/13/19 Time Patient Seen: 19:45 Interval history: Patient was cardioverted twice this am. She has had somewhat labile blood pressures throughout the day. She was oozing from her dressing this am, but no strike-through since dressing change. She is mentating well currently. Feels lethargic today. Pain is under control. Exam Vital Signs (past 8 hours): - 09/13/19 12:20 09/13/19 13:00 09/13/19 13:30 Temperature Pulse Rate 101 H 103 H 99 H Respiratory Rate 19 23 Blood Pressure 92/55 L 79/48 L 76/46 L Pulse Oximetry 96 98 09/13/19 13:45 09/13/19 14:05 09/13/19 14:45 Temperature 97.4 F L Pulse Rate 94 H 95 H 92 H Respiratory Rate 17 Blood Pressure 79/49 L 95/51 L 111/56 L Pulse Oximetry 95 09/13/19 16:00 09/13/19 16:30 09/13/19 19:00 Temperature 98.1 F Pulse Rate 91 H 97 H 94 H Respiratory Rate 17 16 17 Blood Pressure 88/51 L 102/54 L 105/51 L Pulse Oximetry 98 99 93 09/13/19 19:30 09/13/19 19:42 Temperature 96.8 F L Pulse Rate 93 H 92 H Respiratory Rate 17 14 Blood Pressure 104/77 104/77 Pulse Oximetry 99 Oxygen Delivery Method Nasal Cannula Oxygen Flow Rate 0 Narrative Exam Narrative: Dressings are clean/dry/intact. Her right thigh is larger than the left thigh, some swelling. Thigh is not tense. No pain with palpation. NV intact in RLE. Mentating well. AAOx3, plesant, sitting up in bed. Objective Labs Result Diagrams: 09/13/19 18:52 09/13/19 04:40 Labs: Laboratory Results - last 24 hr 09/12/19 09/12/19 09/12/19 22:40 22:40 22:40 WBC 11.4 H RBC 2.34 L Hgb 7.9 L Hct 22.6 L MCV 96.8 MCH 33.6 MCHC 34.7 RDW 13.4 Plt Count 158 Neut % (Auto) 64.3 Lymph % (Auto) 21.0 L [place] % (Auto) 14.0 Eos % (Auto) 0.3 L Baso % (Auto) 0.4 Neut # (Auto) 7300 H Lymph # (Auto) 2400 [place] # (Auto) 1600 H Eos # (Auto) 0 Baso # (Auto) 0 PT INR Sodium 129 L Potassium 4.7 Chloride 98 Carbon Dioxide 26 BUN 16 Creatinine 0.90 Estimated GFR > 60.0 BUN/Creatinine Ratio 17.8 Glucose 158 H Calcium 7.9 L Magnesium 2.0 Total Bilirubin 0.7 AST 48 H ALT 27 Alkaline Phosphatase 34 L Troponin I 0.159 H* Total Protein 5.3 L Albumin 2.6 L Globulin 2.7 Albumin/Globulin Ratio 1.0 TSH Blood Type Antibody Screen Crossmatch 09/12/19 09/13/19 09/13/19 23:45 04:40 04:40 WBC 13.7 H RBC 2.79 L Hgb 9.1 L Hct 26.1 L MCV 93.3 D MCH 32.5 MCHC 34.8 RDW 14.3 Plt Count 153 Neut % (Auto) Lymph % (Auto) [place] % (Auto) Eos % (Auto) Baso % (Auto) Neut # (Auto) Lymph # (Auto) [place] # (Auto) Eos # (Auto) Baso # (Auto) PT 24.4 H D INR 2.1 H Sodium Potassium Chloride Carbon Dioxide BUN Creatinine Estimated GFR BUN/Creatinine Ratio Glucose Calcium Magnesium Total Bilirubin AST ALT Alkaline Phosphatase Troponin I Total Protein Albumin Globulin Albumin/Globulin Ratio TSH Blood Type A Positive Antibody Screen Negative Crossmatch See Detail 09/13/19 09/13/19 09/13/19 04:40 04:40 04:40 WBC RBC Hgb Hct MCV MCH MCHC RDW Plt Count Neut % (Auto) Lymph % (Auto) [place] % (Auto) Eos % (Auto) Baso % (Auto) Neut # (Auto) Lymph # (Auto) [place] # (Auto) Eos # (Auto) Baso # (Auto) PT INR Sodium 126 L Potassium 4.7 Chloride 96 L Carbon Dioxide 23 BUN 18 H Creatinine 0.70 Estimated GFR > 60.0 BUN/Creatinine Ratio 25.7 H Glucose 128 H Calcium 7.6 L Magnesium Total Bilirubin AST ALT Alkaline Phosphatase Troponin I 0.362 H* Total Protein Albumin Globulin Albumin/Globulin Ratio TSH 3.93 Blood Type Antibody Screen Crossmatch 02/15/20 02/15/20 04:40 18:52 WBC RBC Hgb 6.8 L* Hct 19.7 L* MCV MCH MCHC RDW Plt Count Neut % (Auto) Lymph % (Auto) [place] % (Auto) Eos % (Auto) Baso % (Auto) Neut # (Auto) Lymph # (Auto) [place] # (Auto) Eos # (Auto) Baso # (Auto) PT INR Sodium Potassium Chloride Carbon Dioxide BUN Creatinine Estimated GFR BUN/Creatinine Ratio Glucose Calcium Magnesium 2.0 Total Bilirubin AST ALT Alkaline Phosphatase Troponin I Total Protein Albumin Globulin Albumin/Globulin Ratio TSH Blood Type Antibody Screen Crossmatch Assessment & Plan Assessment & Plan narrative: Glenys Munoz is a 79-year-old female now POD #1 from R PRIETO. Of note patient has a past cardiac history significant for coronary artery disease status post CABG x1 vessel, cardiomyopathy, left bundle branch block, aortic stenosis status post mechanical aortic valve on warfarin, hypertension, hyperlipidemia and morbid obesity who presented for elective right total hip arthroplasty. Medicine team has been consulted to manage patient's atrial fibrillation with RVR. - Hbg 6.8 - transfusing 1 unit - continue IV fluids for volume resuscitation - thigh is soft and no pain with palpation - low concern for large arterial bleed - Right thigh dressing c/d/i, no strike-through - Continue daily compression dressing changes until wound stops draining - WBAT RLE - continue therapy goals - INR goal 2-2.5 - INR 2.1 this am - hold lovenox and ASA Time Spent With Patient Time with patient: 15-24 minutes
[2019-09-13] MEDS: EZETIMIBE 10 MG TABLET PO (21:38)
[2019-09-13] MEDS: ROSUVASTATIN 10 MG TABLET 40 MG PO (21:39)
[2019-09-13] MEDS: PANTOPRAZOLE 40 MG TABLET PO (21:39)
--- NOTE | 2019-09-13 22:53 | PC.NURSE ---
Patient received one bolus 500ml when BP was 88/51, which brought it up to 110/70's. Gave one unit of PRBCs after low H/H result, tolerated well. Surgeon contacted by Dr Díaz, some concern for internal bleeding. Current incision dressing is clean, dry, intact. Hamilton output 500 ml. Patient has pain in hip and complains of leg spasms, pain treated with tramadol and tylenol. 2L O2 due to snoring/shallow breathing and desatting when asleep.
[2019-09-14] VITALS (15 sets, daily range): BP systolic 89–108; BP diastolic 44–59; PULSE 88–101; RESP 14–24; TEMP 36.1–36.8; O2SAT 95–100
[2019-09-14] MEDS: CYCLOBENZAPRINE 10 MG TABLET PO ×3 (00:12→17:23)
[2019-09-14] MEDS: ONDANSETRON 4 MG ODT PO (00:12)
[2019-09-14] MEDS: ACETAMINOPHEN 325 MG TABLET 650 MG PO ×4 (00:12→18:24)
[2019-09-14 04:13] LABS: Add Manual Diff / Slide Review NO; Basophils Absolute Auto 0 /uL (0-100); Basophils Percent Auto 0.3 % (0-2); Eosinophils Absolute Auto 400 /uL (0-450); Eosinophils Percent Auto 2.7 % (2-4); Hemoglobin 7.5 g/dL (12.0-16.0); INR 2.4 (0.9-1.3); Lymphocytes Absolute Auto 2800 /uL (1100-4500); Mean Corpuscular HGB Conc 34.5 % (30-36); Mean Corpuscular Hemoglobin 31.8 PG (26-34); Monocytes Absolute Auto 1900 /uL (0-900); Monocytes Percent Auto 12.7 % (3-14); Neutrophils Absolute Auto 9500 /uL (1500-7000); Neutrophils Percent Auto 65.3 % (50-75); Platelet Count 159 X10^3/uL (150-400); Prothrombin Time 27.1 SECONDS (10.1-12.7); Red Blood Cell Count 2.36 X10^6/uL (4.0-5.2); Red Cell Distribution Width 14.4 % (11.6-14.8); White Blood Cell Count 14.6 X10^3/uL (4.5-11.0)
[2019-09-14 04:19] LABS: Hematocrit 21.7 % (36-46)
[2019-09-14 04:20] LABS: Alanine Aminotransferase 56 IU/L (<35); Albumin 2.2 g/dL (3.5-5.0); Albumin Globulin Ratio 0.9 (1.0-2.8); Alkaline Phosphatase 31 U/L (38-126); Aspartate Aminotransferase 79 IU/L (14-36); BUN Creatinine Ratio 28.3 (6-22); Bilirubin Total 0.6 mg/dL (0.2-1.3); Blood Urea Nitrogen 17 mg/dL (7-17); Carbon Dioxide 27 mmol/L (22-32); Chloride 97 mmol/L (98-107); Estimated Glomerular Filt Rate > 60.0 mL/min (>60); Globulin 2.4 g/dL (1.7-4.1); Glucose 122 mg/dL (80-110); HEMOLYSIS < 15 (0-50); Magnesium 2.1 mg/dL (1.6-2.3); Potassium 4.6 mmol/L (3.4-5.1); Sodium 129 mmol/L (137-145); Total Protein 4.6 g/dL (6.3-8.2)
[2019-09-14] MEDS: TRAMADOL 50 MG TABLET PO ×3 (06:16→18:24)
[2019-09-14] MEDS: SODIUM CHLORIDE 0.9% 1,000 ML 84 ML IV (06:16)
[2019-09-14] MEDS: LEVOTHYROXINE 125 MCG TABLET 250 MCG PO (06:16)
--- NOTE | 2019-09-14 06:49 | PC.NURSE ---
[employer] Application Developer Note-Drowsy, oriented, able to rest better overnight, remains in SR, BBB, rate 90s, BP 90s-100s/50s MAP > 60. amiodarone continues unitl bag complete, see Emar. Medicated with Tylenol and Tramadol for pain.
[2019-09-14] MEDS: DOCUSATE 100 MG CAPSULE PO ×2 (08:55→21:09)
[2019-09-14] MEDS: AMIODARONE 200 MG TABLET 400 MG PO ×3 (08:55→17:23)
[2019-09-14] MEDS: SIMETHICONE 80 MG TABLET PO (09:51)
--- NOTE | 2019-09-14 09:53 | PM.PN.1 ---
Subjective Subjective Date Patient Seen: 09/14/19 Time Patient Seen: 09:53 Interval history: She has had somewhat labile blood pressures throughout the day yesterday. Recieved a unit of blood overnight and Hbg improved from 6.8 to 7.5 this am. Looks good this am. No strike-through since dressing change. She is mentating well currently. Feels a little tired today. Pain is under control. Plans to work with PT this afternoon. Exam Vital Signs (past 8 hours): - 09/14/19 02:00 09/14/19 03:00 09/14/19 04:00 Temperature Pulse Rate 95 H 95 H 93 H Respiratory Rate 17 16 18 Blood Pressure 93/47 L 97/53 L 100/57 L Pulse Oximetry 100 100 100 09/14/19 05:00 09/14/19 06:00 09/14/19 08:00 Temperature 97.9 F 97.4 F L Pulse Rate 95 H 97 H 99 H Respiratory Rate 14 14 19 Blood Pressure 89/52 L 99/51 L 102/54 L Pulse Oximetry 99 99 98 Oxygen Delivery Method Nasal Cannula Oxygen Flow Rate 2 Narrative Exam Narrative: Dressings are clean/dry/intact. Her right thigh is larger than the left thigh, some swelling. Thigh is not tense. No pain with palpation. NV intact in RLE. Mentating well. AAOx3, pleasant, sitting up in bed. Objective Labs Result Diagrams: 09/14/19 03:55 09/14/19 03:55 Labs: Laboratory Results - last 24 hr 09/12/19 09/13/19 09/14/19 23:45 18:52 03:55 WBC 14.6 H RBC 2.36 L Hgb 6.8 L* 7.5 L Hct 19.7 L* 21.7 L MCV 92.0 MCH 31.8 MCHC 34.5 RDW 14.4 Plt Count 159 Neut % (Auto) 65.3 Lymph % (Auto) 19.0 L [place] % (Auto) 12.7 Eos % (Auto) 2.7 Baso % (Auto) 0.3 Neut # (Auto) 9500 H Lymph # (Auto) 2800 [place] # (Auto) 1900 H Eos # (Auto) 400 Baso # (Auto) 0 PT INR Sodium Potassium Chloride Carbon Dioxide BUN Creatinine Estimated GFR BUN/Creatinine Ratio Glucose Calcium Magnesium Total Bilirubin AST ALT Alkaline Phosphatase Total Protein Albumin Globulin Albumin/Globulin Ratio Blood Type A Positive Antibody Screen Negative Crossmatch See Detail 09/14/19 09/14/19 03:55 03:55 WBC RBC Hgb Hct MCV MCH MCHC RDW Plt Count Neut % (Auto) Lymph % (Auto) [place] % (Auto) Eos % (Auto) Baso % (Auto) Neut # (Auto) Lymph # (Auto) [place] # (Auto) Eos # (Auto) Baso # (Auto) PT 27.1 H INR 2.4 H Sodium 129 L Potassium 4.6 Chloride 97 L Carbon Dioxide 27 BUN 17 Creatinine 0.60 Estimated GFR > 60.0 BUN/Creatinine Ratio 28.3 H Glucose 122 H Calcium 7.0 L Magnesium 2.1 Total Bilirubin 0.6 AST 79 H ALT 56 H Alkaline Phosphatase 31 L Total Protein 4.6 L Albumin 2.2 L Globulin 2.4 Albumin/Globulin Ratio 0.9 L Blood Type Antibody Screen Crossmatch Assessment & Plan Assessment & Plan narrative: Glenys Munoz is a 79-year-old female now POD #2 from R PRIETO. Of note patient has a past cardiac history significant for coronary artery disease status post CABG x1 vessel, cardiomyopathy, left bundle branch block, aortic stenosis status post mechanical aortic valve on warfarin, hypertension, hyperlipidemia and morbid obesity who presented for elective right total hip arthroplasty. Medicine team has been consulted to manage patient's atrial fibrillation with RVR. - Hbg 7.5 - continue IV fluids for volume resuscitation - thigh is soft and no pain with palpation - low concern for large arterial bleed - blood pressure - hold lisinopril - hold coreg - Right thigh dressing c/d/i, no strike-through - Continue daily compression dressing changes until wound stops draining - WBAT RLE - continue therapy goals - INR goal 2-3 - INR 2.4 this am - hold lovenox and ASA Time Spent With Patient Time with patient: less than 15 minutes
--- NOTE | 2019-09-14 10:00 | P.PN_ITS ---
Subjective Subjective Date Patient Seen: 09/14/19 Interval history: Glenys Munoz is a 79-year-old female with a past medical history significant for coronary artery disease status post CABG x1 vessel, cardiomyopathy, left bundle branch block, aortic stenosis status post mechanical aortic valve on warfarin, hypertension, hyperlipidemia, hypothyroidism, osteoarthritis, osteoporosis, restless leg syndrome, and morbid obesity who presented for elective right total hip arthroplasty. Medicine team has been consulted to manage patient's atrial fibrillation with RVR. The patient is resting in bed and appears comfortable. She is awake alert but continues to endorse fatigue as she did not sleep well last night. She also endorses mild vertigo today which is chronic and intermittent. She has minimal pain at her right hip and reports it is well controlled. Her blood counts imp roved with an additional unit PRBC and her losing at surgical site has slowed down since discontinuation of Lovenox. She has no other complaints and denies headache, chest pain, shortness of breath, abdominal pain, nausea, vomiting, fever, chills, dysuria, diarrhea or constipation. She reports her appetite is improving. She is voiding via Hamilton catheter now with improved UOP. She has not had a BM since admission and a bowel regimen has been implemented. Continue PT and OT. Exam Vital Signs (past 8 hours): - 09/14/19 03:00 09/14/19 04:00 09/14/19 05:00 Temperature 97.9 F Pulse Rate 95 H 93 H 95 H Respiratory Rate 16 18 14 Blood Pressure 97/53 L 100/57 L 89/52 L Pulse Oximetry 100 100 99 09/14/19 06:00 09/14/19 08:00 Temperature 97.4 F L Pulse Rate 97 H 99 H Respiratory Rate 14 19 Blood Pressure 99/51 L 102/54 L Pulse Oximetry 99 98 Oxygen Delivery Method Nasal Cannula Oxygen Flow Rate 2 Narrative Exam Narrative: General: Elderly morbidly obese female lying in bed and in no acute distress, well-developed, pallor resolved, appropriately interactive. HEENT: Normocephalic, atraumatic. External ears without defect. Pupils equal, round, and reactive to light. Anicteric sclera, moist conjunctivae and no lid lag. Oropharynx free of erythema and cobble stoning with moist mucosa. Neck: Supple with full range of motion. No jugular venous distension. No lym phadenopathy or thyromegaly. Cardiovascular: Regular rate and rhythm with ejection murmur. No rubs or gallops appreciated. Pulmonary: Clear to auscultation bilaterally without crackles, wheezes, or rhonchi. Normal respiratory effort with no use of accessory muscles. Abdomen: Soft, obese, bowel sounds present, nontender, nondistended. No hepatosplenomegaly or masses appreciated. Extremities: No clubbing or cyanosis. Bilateral lower extremity lipedema. Right hip with bandage in place C/D/I with mild edema compared to left hip. Skin: Normal temperature, turgor, and texture; no rash, ulcers, or subcutaneous nodules appreciated. Neurological: Cranial nerves grossly intact. Psychiatric: Normal mood and affect. Alert and oriented to person, place, and time. Objective Labs Result Diagrams: 09/14/19 03:55 09/14/19 03:55 Labs: Laboratory Results - last 24 hr 09/12/19 09/13/19 09/14/19 23:45 18:52 03:55 WBC 14.6 H RBC 2.36 L Hgb 6.8 L* 7.5 L Hct 19.7 L* 21.7 L MCV 92.0 MCH 31.8 MCHC 34.5 RDW 14.4 Plt Count 159 Neut % (Auto) 65.3 Lymph % (Auto) 19.0 L [place] % (Auto) 12.7 Eos % (Auto) 2.7 Baso % (Auto) 0.3 Neut # (Auto) 9500 H Lymph # (Auto) 2800 [place] # (Auto) 1900 H Eos # (Auto) 400 Baso # (Auto) 0 PT INR Sodium Potassium Chloride Carbon Dioxide BUN Creatinine Estimated GFR BUN/Creatinine Ratio Glucose Calcium Magnesium Total Bilirubin AST ALT Alkaline Phosphatase Total Protein Albumin Globulin Albumin/Globulin Ratio Blood Type A Positive Antibody Screen Negative Crossmatch See Detail 09/14/19 09/14/19 03:55 03:55 WBC RBC Hgb Hct MCV MCH MCHC RDW Plt Count Neut % (Auto) Lymph % (Auto) [place] % (Auto) Eos % (Auto) Baso % (Auto) Neut # (Auto) Lymph # (Auto) [place] # (Auto) Eos # (Auto) Baso # (Auto) PT 27.1 H INR 2.4 H Sodium 129 L Potassium 4.6 Chloride 97 L Carbon Dioxide 27 BUN 17 Creatinine 0.60 Estimated GFR > 60.0 BUN/Creatinine Ratio 28.3 H Glucose 122 H Calcium 7.0 L Magnesium 2.1 Total Bilirubin 0.6 AST 79 H ALT 56 H Alkaline Phosphatase 31 L Total Protein 4.6 L Albumin 2.2 L Globulin 2.4 Albumin/Globulin Ratio 0.9 L Blood Type Antibody Screen Crossmatch Assessment & Plan Assessment & Plan narrative: Glenys Munoz is a 79-year-old female with a past medical history significant for coronary artery disease status post CABG x1 vessel, cardiomyopathy, left bundle branch block, aortic stenosis status post mechanical aortic valve on warfarin, hypertension, hyperlipidemia, hypothyroidism, osteoarthritis, osteoporosis, restless leg syndrome, and morbid obesity who presented for kandi ctive right total hip arthroplasty. Medicine team has been consulted to manage patient's atrial fibrillation with RVR. 1. Acute postoperative atrial fibrillation with RVR, not present on admission. Resolved. -New onset (appears to be less than 48 hours), no prior known history, suspected to be a postoperative complication. -TSH within normal limits. -Electrolytes within normal limits. Continue to monitor electrolytes closely and replete as necessary. Goal K > 4.0 and Mg > 2.0. -Received amiodarone 150 mg bolus, followed by amiodarone gtt protocol. Per on- call leather belt loop cutter Dr. Linn for patient's leather belt loop cutter Dr. River, he recommended once amiodarone infusion has finished to start amiodarone 400 mg 3 times daily for 1 week, 400 mg twice daily for 1 week and then 200 mg daily thereafter. -Received digoxin 250 mcg IV Q4H x 2 doses then discontinued as patient was cardioverted to sinus rhythm. -Continue warfarin at reduced dose of 2.5 mg daily (due to amiodarone which interferes with warfarin metabolism). Discontinued Lovenox and held aspirin. -Patient had successful cardioversion x 2 to sinus rhythm which she is currently maintaining. 2. Type 2 CO, not present on admission. Resolved. -As anticipated patient has troponin leak due to demand ischemia in setting of atrial fibrillation with RVR and later had a cardioversion x2. Patient denies chest pain or ACS symptoms. No need to further trend troponin. 3. Acute postoperative hypotension in setting of chronic hypertension, not present on admission. Resolving. -Patient was hypotensive due to acute blood loss as below and decreased PO intake. Her blood pressure is now improving after IV fluid administration and PRBCs. -Discontinued IV fluids as patient is adequately hydrated. Received 2 units PRBC. -Held antihypertensives including carvedilol 25 mg twice daily and lisinopril 5 mg daily at bedtime. 4. Acute blood loss anemia, not present on admission. Active. -Initial hemoglobin 11.8. Hemoglobin continued to trend down to 6.8 due to acute blood loss and hemodilution and received 1 unit PRBC. Hemoglobin now 9.1. -Continue to monitor H&H every 12 hours or more often if patient becomes unstable or increasingly hypotensive. -Continue warfarin at reduced dose of 2.5 mg daily (due to amiodarone which interferes with warfarin metabolism). Discontinued Lovenox and held aspirin. 5. DJD status post right total arthroplasty, acute on chronic, present on admission. Improving. -Status post right total hip arthroplasty on 09/12. -Continue postoperative and pain management per Orthopedic surgery. 6. CAD, chronic condition, present on admission. Stable. -Patient has history of CABG x1 vessel. -Patient endorse lightheadedness and dizziness with diaphoresis due to arrhythmia which has resolved with cardioversion. Denies chest pain or ACS symptoms. -Held aspirin, carvedilol, and lisinopril due to hypotension related to acute blood loss as above. Continue rosuvastatin 40 mg at bedtime. 7. History of mechanical aortic valve, chronic, present admission. Stable. -Continue warfarin at reduced dose of 2.5 mg daily (due to amiodarone which interferes with warfarin metabolism). Discontinued Lovenox and held aspirin. Per on-call leather belt loop cutter Dr. Linn for the patient's leather belt loop cutter Dr. River, he recommended continue warfarin at lower dose and if INR falls and patient needs to be bridged to use heparin gtt rather than Lovenox. -Continue to monitor INR daily. 8. Hyperlipidemia, chronic, present on admission. Stable. -Continue rosuvastatin 40 mg daily at bedtime and ezetimibe 10 mg daily at bedtime. 9. Hypothyroidism, chronic condition, present on admission, stable -TSH normal at 3.93. Continue levothyroxine 125 mcg daily. Full code. No formal health directive per patient, however patient designates her daughters Sharri and Angela, as surrogate decision makers. VTE prophylaxis: Warfarin and SCDs. Thank you for this most interesting consult. Medicine team will continue to follow along with you.
--- NOTE | 2019-09-14 12:11 | PT.IPTN ---
Current Diagnoses Unilateral primary osteoarthritis, right hip (09/10/19) Surgery Performed Operation Date: 09/10/19 07:45 Actual Procedures p Total Hip Arthroplasty(Right) - Rod Randhawa MD Physical Therapy Treatment Note M2 PT-IP Current Condition Start: 09/10/19 17:18 Freq: NEEDED Status: Active Protocol: Document 09/14/19 11:55 NFW (Rec: 09/14/19 12:10 NFW [id number]) Physical Therapy Current Condition Precautions Posterior Hip Precautions No Hip Flexion > 90 degrees,No Hip Internal Rotation,No Hip Adduction Other Precautions Monitor BP Weight Bearing Status Weight Bearing Status Full Weight Bearing M3 PT-IP Subjective Start: 09/10/19 17:18 Freq: NEEDED Status: Active Protocol: Document 09/14/19 11:55 NFW (Rec: 09/14/19 12:10 NFW [id number]) Subjective Physical Therapy Visit Type Type Treatment Note Visit Start Time 11:06 Visit Stop Time 11:49 Total Visit Minutes 43 Notes , daughter and ABRAM in room. BP has stabilized over the last day. Physical Therapy Visit Comments Patient Comments Pt stating that she needs to stand up and walk. Therapy Pain Assessment Pain When Pain Assessed At Rest Pain Present Pain Present Pain Reported Location right hip Intensity 5 Scale Used Numeric (1 - 10) M4 PT-IP Mobility and Gait Start: 09/10/19 17:18 Freq: NEEDED Status: Active Protocol: Document 09/14/19 11:55 NFW (Rec: 09/14/19 12:10 NFW [id number]) PT-Bed Mobility Assessment Supine to Sit Supine to Sit Maximum Assistance,2 Person Assistance,Head of Bed Elevated,Bedrails Sit to Supine Sit to Supine Maximum Assistance,2 Person Assistance,Bedrails Scooting Scooting to Edge of Bed Maximum Assistance Scooting Up and Down in Bed Maximum Assistance PT-Transfer Assessment Sit to and From Stand Sit to and from Stand Moderate Assistance,2 Person Assistance,Use of Upper Extremities Equipment Transfer Assistive Device Gait Belt,Front Wheeled Walker Orthotic/Prosthetic Devices or Brace: No Transfer Ability Level of Assist Maximum Assistance,2 Person Assistance,Use of Upper Extremities Comments Mobility Comments Pt stood x4 with mod assist of 2 and use of gait belt. Difficulty holding head upright, marked flexed through spine, fairly even wt bearing LE. Max time standing 3-5 seconds. Gait Assessment Comments Gait Comments Had pt sd step to right while standing at side of bed. Max assist of 2. Able to take 4 steps. This allowed for better positioning in bed. M5 PT-IP Objective Assessments Start: 09/10/19 17:18 Freq: NEEDED Status: Active Protocol: Document 09/10/19 15:25 AB (Rec: 09/10/19 17:31 AB [id number]) Orientation Orientation/Cognition Level of Alertness Alert Orientation Name,Place,Situation Language Function Ability No Deficits Noted Safety Awareness Decreased Safety Awareness Memory Description Short Term Impaired Gross Range of Motion Lower Extremity ROM Assessment Right Impaired Impairments RLE tightness and increase guarding affecting PROM Strength Lower Extremity Strength Assessment Bilaterally Impaired Hip R: 3+/5 L: 4-/5 Knee R: 3-/5 L: 3+/5 Sensation Assessment Sensation Gross Sensation WNL Muscle Tone Muscle Tone WNL Yes M6 PT-IP Treatment Start: 09/10/19 17:18 Freq: NEEDED Status: Active Protocol: Document 09/14/19 11:55 NFW (Rec: 09/14/19 12:10 NFW [id number]) Physical Therapy Treatment Exercises Exercises Ankle Pumps,Gluteal Sets,Quad Sets Other Treatments Other Treatment Performed AAROM for heel slides, hip abd then add to neutral. Bed exercises of overhead reach with BUEs. Had pt push back of head gently into pillow for strengthening. M7 PT-IP Assessment and Plan Start: 09/10/19 17:18 Freq: NEEDED Status: Active Protocol: Document 09/14/19 11:55 NFW (Rec: 09/14/19 12:10 NFW [id number]) PT Summary Assessment and Plan Potential Rehabilitation Potential Fair Status of Condition at Evaluation Evolving Summary Impairments Pain,ROM,Strength,Balance, Coordination,Sensation,Tone, Cognition,Bed Mobility, Transfers,Gait,Activity Tolerance Assessment Summary Pt extremely limited in mobility due to weakness, pain and lightheadedness. Determined and willing to work . Goals Bed Mobility Goal Standby Assistance Transfer Goal Standby Assistance,Front Wheeled Walker Gait Goal Standby Assistance,Front Wheel Walker Gait Distance 100 Other Goals up/down 1 step using FWW CGA Frequency of Treatment Frequency Of Treatment Twice a Day Treatment Plan Physical Therapy Treatment Plan Bed Mobility Training,Transfer Training,Gait Training, Therapeutic Exercise,Balance Retraining,Post Op Education, Discharge Planning,Hot or Cold Pack,Neuromuscular Re-ed, Coordination Retraining,Manual Therapy Other Recommendations and Next Treatment check vitals, bed ex Focus coordinating breathing for pain, review PRIETO precautions, transfers, ambulation, caregiver training when appropriate. Discuss DC plans . Recommendations To Nursing Amount of Assist Needed 2 Person Assist Discharge Recommendations PT Discharge Recommendations SNF Rehab
--- NOTE | 2019-09-14 15:29 | PC.NURSE ---
Day Shift Note Amio gtt stopped at 0800 and switched to PO amiodarone. Pressure dressing changed to right hip at 1515, small amount oozing of sanguinous fluid noted to middle of incision, significant bruising surrounding incision - unchanged from yesterday. Family at bedside. Call light within reach, using appropriately to make needs known.
--- NOTE | 2019-09-14 15:38 | PT.IPTN ---
Current Diagnoses Unilateral primary osteoarthritis, right hip (09/10/19) Surgery Performed Operation Date: 09/10/19 07:45 Actual Procedures p Total Hip Arthroplasty(Right) - Rod Randhawa MD Physical Therapy Treatment Note M2 PT-IP Current Condition Start: 09/10/19 17:18 Freq: NEEDED Status: Active Protocol: Document 09/14/19 11:55 NFW (Rec: 09/14/19 12:10 NFW [id number]) Physical Therapy Current Condition Precautions Posterior Hip Precautions No Hip Flexion > 90 degrees,No Hip Internal Rotation,No Hip Adduction Other Precautions Monitor BP Weight Bearing Status Weight Bearing Status Full Weight Bearing M3 PT-IP Subjective Start: 09/10/19 17:18 Freq: NEEDED Status: Active Protocol: Document 09/14/19 15:29 NFW (Rec: 09/14/19 15:38 NFW [id number]) Subjective Physical Therapy Visit Type Type Treatment Note Visit Start Time 14:55 Visit Stop Time 15:25 Total Visit Minutes 30 Notes Family present during treatment. Number of PAYMENT REP Visits 0 Physical Therapy Visit Comments Patient Comments Tired and concerned about standing up. Therapy Pain Assessment Pain When Pain Assessed At Rest Pain Present Pain Present Pain Reported Location right hip Description Spasm,Tender Pain Behaviors Facial Grimacing M4 PT-IP Mobility and Gait Start: 09/10/19 17:18 Freq: NEEDED Status: Active Protocol: Document 09/14/19 15:29 NFW (Rec: 09/14/19 15:38 NFW [id number]) PT-Bed Mobility Assessment Supine to Sit Supine to Sit Maximum Assistance,2 Person Assistance,Head of Bed Elevated,Bedrails Sit to Supine Sit to Supine Maximum Assistance,2 Person Assistance,Bedrails Scooting Scooting to Edge of Bed Maximum Assistance Scooting Up and Down in Bed Maximum Assistance PT-Transfer Assessment Sit to and From Stand Sit to and from Stand Maximum Assistance,2 Person Assistance,Use of Upper Extremities Equipment Transfer Assistive Device Gait Belt,Front Wheeled Walker Orthotic/Prosthetic Devices or Brace: No Transfer Ability Level of Assist Maximum Assistance,2 Person Assistance,Use of Upper Extremities Comments Mobility Comments Pt stood at bedside while dressing of incision changed and sheets on bed changed. Able to stand again and side step x4 before sitting back down. Requires max assist to lift legs back into bed and for positioning. Gait Assessment Comments Gait Comments See comments above. M5 PT-IP Objective Assessments Start: 09/10/19 17:18 Freq: NEEDED Status: Active Protocol: Document 09/10/19 15:25 AB (Rec: 09/10/19 17:31 AB [id number]) Orientation Orientation/Cognition Level of Alertness Alert Orientation Name,Place,Situation Language Function Ability No Deficits Noted Safety Awareness Decreased Safety Awareness Memory Description Short Term Impaired Gross Range of Motion Lower Extremity ROM Assessment Right Impaired Impairments RLE tightness and increase guarding affecting PROM Strength Lower Extremity Strength Assessment Bilaterally Impaired Hip R: 3+/5 L: 4-/5 Knee R: 3-/5 L: 3+/5 Sensation Assessment Sensation Gross Sensation WNL Muscle Tone Muscle Tone WNL Yes M6 PT-IP Treatment Start: 09/10/19 17:18 Freq: NEEDED Status: Active Protocol: Document 09/14/19 15:29 NFW (Rec: 09/14/19 15:38 NFW [id number]) Physical Therapy Treatment Exercises Exercises Ankle Pumps,Quad Sets,Heel Slides Other Treatments Other Treatment Performed Review UE overhead. Diaphragmatic breathing. Assisted heel slides. M7 PT-IP Assessment and Plan Start: 09/10/19 17:18 Freq: NEEDED Status: Active Protocol: Document 09/14/19 15:29 NFW (Rec: 09/14/19 15:38 NFW [id number]) PT Summary Assessment and Plan Potential Rehabilitation Potential Fair Status of Condition at Evaluation Evolving Summary Impairments Pain,ROM,Strength,Balance, Coordination,Sensation,Tone, Cognition,Bed Mobility, Transfers,Gait,Activity Tolerance Assessment Summary Pt extremely limited in mobility due to weakness, pain and lightheadedness. Determined and willing to work . Residual muscle spasms anterior thigh. BP ~ same at 97/54, pulse 71 before treatment. Goals Bed Mobility Goal Standby Assistance Transfer Goal Standby Assistance,Front Wheeled Walker Gait Goal Standby Assistance,Front Wheel Walker Gait Distance 100 Other Goals up/down 1 step using FWW CGA Frequency of Treatment Frequency Of Treatment Twice a Day Treatment Plan Physical Therapy Treatment Plan Bed Mobility Training,Transfer Training,Gait Training, Therapeutic Exercise,Balance Retraining,Post Op Education, Discharge Planning,Hot or Cold Pack,Neuromuscular Re-ed, Coordination Retraining,Manual Therapy Other Recommendations and Next Treatment check vitals, bed ex Focus coordinating breathing for pain, review PRIETO precautions, transfers, ambulation, caregiver training when appropriate. Discuss DC plans . Discharge Recommendations PT Discharge Recommendations SNF Rehab
[2019-09-14] MEDS: WARFARIN 2.5 MG TABLET PO (17:21)
[2019-09-14] MEDS: PRAMIPEXOLE 0.25 MG TABLET 0.75 MG PO (18:29)
[2019-09-14 19:59] LABS: Hemoglobin 6.4 g/dL (12.0-16.0)
[2019-09-14 20:00] LABS: Hematocrit 18.7 % (36-46)
[2019-09-14] MEDS: PANTOPRAZOLE 40 MG TABLET PO (21:09)
[2019-09-14] MEDS: ROSUVASTATIN 10 MG TABLET 40 MG PO (21:09)
[2019-09-14] MEDS: EZETIMIBE 10 MG TABLET PO (21:09)
--- NOTE | 2019-09-14 23:04 | PC.NURSE ---
1 unit PRBC in progress after low H/H lab result. 2nd unit on hold per Dr. Díaz. Large rose output. Complaints of leg spasms despite medications. Tramadol/Tylenol for pain. Has a small blister distal to pressure dressing, likely caused by previous dressing. Open to air. Room air, no SOB.
[2019-09-15] VITALS (9 sets, daily range): BP systolic 86–126; BP diastolic 46–58; PULSE 83–100; RESP 14–25; TEMP 36.3–37.2; O2SAT 94–99
[2019-09-15] MEDS: CYCLOBENZAPRINE 10 MG TABLET PO ×2 (00:32→09:23)
[2019-09-15] MEDS: TRAMADOL 50 MG TABLET PO ×4 (00:32→20:48)
--- NOTE | 2019-09-15 01:43 | PC.NURSE ---
Addendum entered by Juhi Hoskins R.N. 09/15/19 05:42: Reported H/H 7.1/20.7 to YVONNE Capone. No new orders received. Addendum entered by Juhi Hoskins R.N. 09/15/19 02:28: Pt desating on RA to 70-80s. O2 at 2L initiated with sats up to mid to high 90's. HR 97. Original Note: [id number] Pt awake at conclusion of PRBC infusion. Pt states that she is feeling better. Pt repositoned to R side briefly to auscultate lungs. Pt unable to remain on R side due to pain. Pt states more comfortable to rotate bed and able to tolerate this. Pt medicated with Tramadol for 2-6/10 pain.Flexoril given for C/o muscle spasms R LE. Pt encouraged to C, DB and continue with ankle wave and calf pumps. SCDs on and functioning. Hamilton draining amarilis colored urine. Gonsalo LE elevated on pillows with heels floating. Pt continues with 3+-4+ LE edema.
[2019-09-15 05:03] LABS: Add Manual Diff / Slide Review NO; Basophils Absolute Auto 100 /uL (0-100); Basophils Percent Auto 0.5 % (0-2); Eosinophils Absolute Auto 400 /uL (0-450); Eosinophils Percent Auto 3.2 % (2-4); Hemoglobin 7.1 g/dL (12.0-16.0); Lymphocytes Absolute Auto 2200 /uL (1100-4500); Mean Corpuscular HGB Conc 34.1 % (30-36); Mean Corpuscular Hemoglobin 31.5 PG (26-34); Mean Corpuscular Volume 92.5 fL (80-100); Monocytes Absolute Auto 1500 /uL (0-900); Monocytes Percent Auto 11.2 % (3-14); Neutrophils Absolute Auto 8900 /uL (1500-7000); Neutrophils Percent Auto 68.1 % (50-75); Platelet Count 181 X10^3/uL (150-400); Red Blood Cell Count 2.25 X10^6/uL (4.0-5.2); Red Cell Distribution Width 14.8 % (11.6-14.8)
[2019-09-15 05:07] LABS: Alanine Aminotransferase 71 IU/L (<35); Albumin 2.4 g/dL (3.5-5.0); Albumin Globulin Ratio 0.9 (1.0-2.8); Alkaline Phosphatase 33 U/L (38-126); Aspartate Aminotransferase 88 IU/L (14-36); BUN Creatinine Ratio 18.3 (6-22); Bilirubin Total 1.1 mg/dL (0.2-1.3); Blood Urea Nitrogen 11 mg/dL (7-17); Calcium 7.4 mg/dL (8.4-10.2); Carbon Dioxide 30 mmol/L (22-32); Chloride 96 mmol/L (98-107); Estimated Glomerular Filt Rate > 60.0 mL/min (>60); Globulin 2.6 g/dL (1.7-4.1); Glucose 111 mg/dL (80-110); HEMOLYSIS < 15 (0-50); Potassium 4.8 mmol/L (3.4-5.1); Sodium 128 mmol/L (137-145)
[2019-09-15 05:22] LABS: Hematocrit 20.8 % (36-46)
[2019-09-15] MEDS: ACETAMINOPHEN 325 MG TABLET 650 MG PO ×3 (05:53→11:57)
[2019-09-15] MEDS: LEVOTHYROXINE 125 MCG TABLET PO (05:54)
[2019-09-15] MEDS: DOCUSATE 100 MG CAPSULE PO ×2 (09:22→20:48)
[2019-09-15] MEDS: AMIODARONE 200 MG TABLET 400 MG PO ×2 (09:22→11:56)
[2019-09-15] MEDS: polyethylene glycoL 3350 17 GM POWD.PACK PO (09:23)
--- NOTE | 2019-09-15 10:07 | PM.PNPO.1 ---
Subjective Subjective Date Patient Seen: 09/15/19 Time Patient Seen: 07:30 Interval history: Patient complains of mild fatigue. Has mild to moderate pain in R hip. Complains of muscle spasms in RLE. Complains of swelling in her legs, per family member has improved since yesterday. Using rose catheter to void. Denies BM, passing gas. Mobilizing with PT (standing up only). Denies fever, chills, chest pain, palpitations, dizziness, nausea, vomiting, shortness of breath, pain in calves. Exam Vital Signs (past 8 hours): - 09/15/19 05:00 09/15/19 08:32 09/15/19 09:02 Temperature 98.0 F 98.4 F Pulse Rate 93 H 89 91 H Respiratory Rate 15 14 14 Blood Pressure 90/52 L 86/47 L 126/58 L Pulse Oximetry 99 98 Oxygen Delivery Method Room Air Oxygen Flow Rate 2 Narrative Exam Narrative: 79 yo obese F laying comfortably in bed, in no apparent distress. A&Ox3. Dressing CDI, rose catheter in place. Sensory function grossly intact to light touch in LE BL. Dorsalis pedis 2+ BL. Able to actively dorsiflex/plantar flex. Calves warm, soft, compressible, non tender to palpation. Lower extremity edema 3+ BL. Objective Labs Result Diagrams: 09/16/19 03:00 09/16/19 03:00 Labs: Laboratory Results - last 24 hr 09/12/19 09/14/19 09/15/19 23:45 19:37 04:35 WBC 13.0 H RBC 2.25 L Hgb 6.4 L* 7.1 L Hct 18.7 L* 20.8 L* MCV 92.5 MCH 31.5 MCHC 34.1 RDW 14.8 Plt Count 181 Neut % (Auto) 68.1 Lymph % (Auto) 17.0 L Lincoln % (Auto) 11.2 Eos % (Auto) 3.2 Baso % (Auto) 0.5 Neut # (Auto) 8900 H Lymph # (Auto) 2200 Lincoln # (Auto) 1500 H Eos # (Auto) 400 Baso # (Auto) 100 Sodium Potassium Chloride Carbon Dioxide BUN Creatinine Estimated GFR BUN/Creatinine Ratio Glucose Calcium Total Bilirubin AST ALT Alkaline Phosphatase Total Protein Albumin Globulin Albumin/Globulin Ratio Blood Type A Positive Antibody Screen Negative Crossmatch See Detail 09/15/19 04:35 WBC RBC Hgb Hct MCV MCH MCHC RDW Plt Count Neut % (Auto) Lymph % (Auto) Lincoln % (Auto) Eos % (Auto) Baso % (Auto) Neut # (Auto) Lymph # (Auto) Lincoln # (Auto) Eos # (Auto) Baso # (Auto) Sodium 128 L Potassium 4.8 Chloride 96 L Carbon Dioxide 30 BUN 11 Creatinine 0.60 Estimated GFR > 60.0 BUN/Creatinine Ratio 18.3 Glucose 111 H Calcium 7.4 L Total Bilirubin 1.1 AST 88 H ALT 71 H Alkaline Phosphatase 33 L Total Protein 5.0 L Albumin 2.4 L Globulin 2.6 Albumin/Globulin Ratio 0.9 L Blood Type Antibody Screen Crossmatch Assessment & Plan Post-op Postoperative Procedures: Procedures Operation Date: 09/10/19 07:45 Actual Procedures Side Surgeon p Total Hip Arthroplasty Right Rod Randhawa MD Postoperative plan narrative: Continue dressing changes as needed Continue pain management plan Mobilize with PT Continue SCDs for DVT prophylaxis Appreciate hospitalists recommendations for acute blood loss anemia and acute transaminitis Time Spent With Patient Time with patient: less than 15 minutes
--- NOTE | 2019-09-15 10:13 | PC.NURSE ---
Addendum entered by Joe Marie R.N. 09/15/19 14:57: Attempt x2 to initiate PIV access unsuccessfully. Called to MAYTE RN and requested PIV insertion with US guidance. States she will be here in approx an hour to start IV. Pt still needs 1 unit PRBC once IV in place. Dr. Díaz aware pt has not had blood yet. Addendum entered by Joe Marie R.N. 09/15/19 12:43: Assessed PIV access. Both leaking and painful to flush. Removed with cath tip intact. Explained need for IV access r/t ordered blood products. Pt verbalizes understanding. She would like to eat lunch before attempting PIV access. She c/o her indwelling catheter leaking. Noted some urine on green pad. Assessed tubing and deflated/reinflated balloon adding 2 additional MLs. Hamilton began draining briskly. Will monitor. Original Note: 1000- Noted dsg saturated with serous and sang drainage as well as leaking from dsg onto linen. PT in to eval pt at this time. Pt agreeable to stand at bedside and have dsg changed. Removed bulky dsg from right hip. Noted distal half of incision trickling blood. Incision is well approximated with lizzette and moderate purple bruising slick incision. Pt stood at bedside for majority of dsg change. Cleansed incision with sterile NS. Patted dry with gauze. Covered distal portion of incision with 2 xtrasorb pads and proximal portion with abd. Secured with hypafix. Pt tolerated fair and was assisted back to bed and positioned for comfort. PT and BPM ANALYST at bedside for PT session. Daughter at bedside.
--- NOTE | 2019-09-15 10:16 | PT.IPTN ---
Current Diagnoses Unilateral primary osteoarthritis, right hip (09/10/19) Surgery Performed Operation Date: 09/10/19 07:45 Actual Procedures p Total Hip Arthroplasty(Right) - Rod Randhawa MD Physical Therapy Treatment Note M2 PT-IP Current Condition Start: 09/10/19 17:18 Freq: NEEDED Status: Active Protocol: Document 09/14/19 11:55 NFW (Rec: 09/14/19 12:10 NFW [id number]) Physical Therapy Current Condition Precautions Posterior Hip Precautions No Hip Flexion > 90 degrees,No Hip Internal Rotation,No Hip Adduction Other Precautions Monitor BP Weight Bearing Status Weight Bearing Status Full Weight Bearing M3 PT-IP Subjective Start: 09/10/19 17:18 Freq: NEEDED Status: Active Protocol: Document 09/15/19 10:16 DLM (Rec: 09/15/19 13:58 DLM [id number]) Subjective Physical Therapy Visit Type Type Treatment Note Visit Start Time 09:30 Visit Stop Time 10:16 Total Visit Minutes 46 Number of WET CHEMISTRY ANALYST Visits 0 Physical Therapy Visit Comments Patient Comments She reports she continues to have cramping on/off in right thigh. She describes feeling weak Therapy Pain Assessment Pain When Pain Assessed During Mobility Pain Present Pain Present Pain Reported Location right hip Intensity 5 Scale Used Numeric (1 - 10) Description Aching Pain Management Techniques Re-positioning M4 PT-IP Mobility and Gait Start: 09/10/19 17:18 Freq: NEEDED Status: Active Protocol: Document 09/15/19 10:16 DLM (Rec: 09/15/19 13:58 DLM [id number]) PT-Bed Mobility Assessment Supine to Sit Supine to Sit Total Assistance,2 Person Assistance,Head of Bed Elevated Sit to Supine Sit to Supine Maximum Assistance,2 Person Assistance Scooting Scooting to Edge of Bed Maximum Assistance Scooting Up and Down in Bed Dependent PT-Transfer Assessment Sit to and From Stand Sit to and from Stand Moderate Assistance,2 Person Assistance Equipment Transfer Assistive Device Gait Belt,Front Wheeled Walker Comments Mobility Comments Sat edge of bed and stood edge of bed with fWW x 2 trials, Two person assist for sit to stand but once she is on her feet she can stand with min/ mod assist of one person and the fWW. Bed linens changes and dressing on incision changed by nursing when pt stood this visit. Pt returned to bed at the end of this visit because Echo planned. Pt fatigues quickly with activity today. Gait Assessment Comments Gait Comments unable to ambulate this visit PT-Balance Assessment Sitting Balance and Reactions Static Sitting Balance Ability Fair Dynamic Sitting Balance Ability Fair Standing Balance and Reactions Static Standing Balance Ability Fair Dynamic Standing Balance Ability Fair Device Used FWW M5 PT-IP Objective Assessments Start: 09/10/19 17:18 Freq: NEEDED Status: Active Protocol: Document 09/10/19 15:25 AB (Rec: 09/10/19 17:31 AB [id number]) Orientation Orientation/Cognition Level of Alertness Alert Orientation Name,Place,Situation Language Function Ability No Deficits Noted Safety Awareness Decreased Safety Awareness Memory Description Short Term Impaired Gross Range of Motion Lower Extremity ROM Assessment Right Impaired Impairments RLE tightness and increase guarding affecting PROM Strength Lower Extremity Strength Assessment Bilaterally Impaired Hip R: 3+/5 L: 4-/5 Knee R: 3-/5 L: 3+/5 Sensation Assessment Sensation Gross Sensation WNL Muscle Tone Muscle Tone WNL Yes M6 PT-IP Treatment Start: 09/10/19 17:18 Freq: NEEDED Status: Active Protocol: Document 09/15/19 10:16 DLM (Rec: 09/15/19 13:58 DL [id number]) Physical Therapy Treatment Exercises Exercises Ankle Pumps,Heel Slides Education Education Provided Precautions,Post-Op Packet, Safety Other Treatments Other Treatment Performed pt able to verbalize 2/3 hip precautions without reminders M7 PT-IP Assessment and Plan Start: 09/10/19 17:18 Freq: NEEDED Status: Active Protocol: Document 09/15/19 10:16 DLM (Rec: 09/15/19 13:58 DL [id number]) PT Summary Assessment and Plan Summary Impairments Pain,ROM,Strength,Balance, Coordination,Sensation,Tone, Cognition,Bed Mobility, Transfers,Gait,Activity Tolerance Progress Towards Goals Slow Progress due to Activity Tolerance Assessment Summary Glenys is alert and shows good effort with therapy. She fatigues quickly with activity . Mild dizziness with initial sitting but pt reports this is baseline for her. Goals Bed Mobility Goal Minimal Assistance,Moderate Assistance Transfer Goal Minimal Assistance,Moderate Assistance,Front Wheeled Walker Gait Goal Minimal Assistance,Moderate Assistance,Front Wheel Walker Gait Distance 10 Other Goals revised goals this visit due to patients change in status during this admission Days to Meet Goals 3 Frequency of Treatment Frequency Of Treatment Twice a Day Treatment Plan Physical Therapy Treatment Plan Bed Mobility Training,Transfer Training,Gait Training, Therapeutic Exercise,Balance Retraining,Post Op Education, Discharge Planning,Hot or Cold Pack,Neuromuscular Re-ed, Coordination Retraining,Manual Therapy Recommendations To Nursing Amount of Assist Needed 2 Person Assist Discharge Recommendations PT Discharge Recommendations SNF Rehab
[2019-09-15 10:52] LABS: INR 3.2 (0.9-1.3); Prothrombin Time 37.2 SECONDS (10.1-12.7)
--- NOTE | 2019-09-15 11:29 | PM.PN.1 ---
Subjective Subjective Date Patient Seen: 09/15/19 Interval history: Glenys Munoz is a 79-year-old female with a past medical history significant for coronary artery disease status post CABG x1 vessel, cardiomyopathy, left bundle branch block, aortic stenosis status post mechanical aortic valve on warfarin, hypertension, hyperlipidemia, hypothyroidism, osteoarthritis, osteoporosis, restless leg syndrome, and morbid obesity who presented for elective right total hip arthroplasty. Medicine team has been consulted to manage patient's atrial fibrillation with RVR. The patient is resting in bed and appears comfortable. She continues to be mildly fatigued. Her surgical site continues to mildly ooze. Her INR is supratherapeutic today at 3.2 and plan to hold warfarin. Her hemoglobin is low at 7.1 and plan to give 1 unit PRBC. Her SBP is in the 120s and heart rate in the 80s which are improved and the best they have been. She endorses muscle spasms that are not relieved with cyclobenzaprine. Plan to add baclofen as needed for muscle spasticity. She has no other complaints and denies headache, chest pain, shortness of breath, abdominal pain, nausea, vomiting, fever, chills, dysuria, diarrhea or constipation. Her appetite continues to improve. She is voiding via Hamilton catheter now with improved UOP. She has not had a BM since admission and a bowel regimen has been implemented. Continue PT and OT. Exam Vital Signs (past 8 hours): - 09/15/19 05:00 09/15/19 08:32 09/15/19 09:02 Temperature 98.0 F 98.4 F Pulse Rate 93 H 89 91 H Respiratory Rate 15 14 14 Blood Pressure 90/52 L 86/47 L 126/58 L Pulse Oximetry 99 98 Oxygen Delivery Method Room Air,Nasal Cannula Oxygen Flow Rate 2 Narrative Exam Narrative: General: Elderly morbidly obese female lying in bed and in no acute distress, well-developed, appropriately interactive. HEENT: Normocephalic, atraumatic. External ears without defect. Pupils equal, round, and reactive to light. Anicteric sclera, moist conjunctivae and no lid lag. Oropharynx free of erythema and cobble stoning with moist mucosa. Neck: Supple with full range of motion. No jugular venous distension. No lymphadenopathy or thyromegaly. Cardiovascular: Regular rate and rhythm with ejection murmur. No rubs or gallops appreciated. Pulmonary: Clear to auscultation bilaterally without crackles, wheezes, or rhonchi. Normal respiratory effort with no use of accessory muscles. Abdomen: Soft, obese, bowel sounds present, nontender, nondistended. No hepatosplenomegaly or masses appreciated. Extremities: No clubbing or cyanosis. Bilateral lower extremity lipedema. Right hip with bandage in place C/D/I with mild surrounding edema and warmth compared to left hip. Skin: Normal temperature, turgor, and texture; no rash, ulcers, or subcutaneous nodules appreciated. Neurological: Cranial nerves grossly intact. Psychiatric: Mildly anxious mood and normal affect. Alert and oriented to person, place, and time. Objective Labs Result Diagrams: 09/15/19 04:35 09/15/19 04:35 Labs: Laboratory Results - last 24 hr 09/12/19 09/14/19 09/15/19 23:45 19:37 04:35 WBC 13.0 H RBC 2.25 L Hgb 6.4 L* 7.1 L Hct 18.7 L* 20.8 L* MCV 92.5 MCH 31.5 MCHC 34.1 RDW 14.8 Plt Count 181 Neut % (Auto) 68.1 Lymph % (Auto) 17.0 L Lamb % (Auto) 11.2 Eos % (Auto) 3.2 Baso % (Auto) 0.5 Neut # (Auto) 8900 H Lymph # (Auto) 2200 Lamb # (Auto) 1500 H Eos # (Auto) 400 Baso # (Auto) 100 PT INR Sodium Potassium Chloride Carbon Dioxide BUN Creatinine Estimated GFR BUN/Creatinine Ratio Glucose Calcium Total Bilirubin AST ALT Alkaline Phosphatase Total Protein Albumin Globulin Albumin/Globulin Ratio Blood Type A Positive Antibody Screen Negative Crossmatch See Detail 09/15/19 09/15/19 04:35 04:35 WBC RBC Hgb Hct MCV MCH MCHC RDW Plt Count Neut % (Auto) Lymph % (Auto) Lamb % (Auto) Eos % (Auto) Baso % (Auto) Neut # (Auto) Lymph # (Auto) Lamb # (Auto) Eos # (Auto) Baso # (Auto) PT 37.2 H D INR 3.2 H Sodium 128 L Potassium 4.8 Chloride 96 L Carbon Dioxide 30 BUN 11 Creatinine 0.60 Estimated GFR > 60.0 BUN/Creatinine Ratio 18.3 Glucose 111 H Calcium 7.4 L Total Bilirubin 1.1 AST 88 H ALT 71 H Alkaline Phosphatase 33 L Total Protein 5.0 L Albumin 2.4 L Globulin 2.6 Albumin/Globulin Ratio 0.9 L Blood Type Antibody Screen Crossmatch Assessment & Plan Assessment & Plan narrative: Glenys Munoz is a 79-year-old female with a past medical history significant for coronary artery disease status post CABG x1 vessel, cardiomyopathy, left bundle branch block, aortic stenosis status post mechanical aortic valve on warfarin, hypertension, hyperlipidemia, hypothyroidism, osteoarthritis, osteoporosis, restless leg syndrome, and morbid obesity who presented for elective right total hip arthroplasty. Medicine team has been consulted to manage patient's atrial fibrillation with RVR. 1. Acute blood loss anemia, not present on admission. Active. -Initial hemoglobin 11.8. Patient continues to ooze from surgical site and hemoglobin remains low and trending down now 7.1 due to acute blood loss and hemodilution. Patient has received 3 units PRBC. Plan to transfuse an additional 1 unit PRBC today. -Continue to monitor H&H closely. Transfusion goal hemoglobin < 8.0. -Held warfarin as INR is supratherapeutic at 3.2. Continue to monitor INR daily. Discontinued Lovenox and held aspirin. 2. Acute postoperative hypotension in setting of chronic hypertension, not present on admission. Resolved. -Patient was hypotensive due to acute blood loss as below and decreased PO intake. Her blood pressure improved with IV fluid and PRBCs administration. -Discontinued IV fluids as patient is adequately hydrated. Received 3 units PRBC and plan to receive another 1 unit PRBC today. -Held antihypertensives including carvedilol 25 mg twice daily and lisinopril 5 mg daily at bedtime. 3. Acute postoperative atrial fibrillation with RVR, not present on admission. Resolved. -New onset (appears to be less than 48 hours), no prior known history, suspected to be a postoperative complication. -TSH within normal limits. -Electrolytes within normal limits. Continue to monitor electrolytes closely and replete as necessary. Goal K > 4.0 and Mg > 2.0. -Received amiodarone 150 mg bolus and 24 hour gtt per protocol. Per patient's cardiology group at [facility] held amiodarone as LFTs are elevating. -Received digoxin 250 mcg IV Q4H x 2 doses then discontinued as patient was cardioverted to sinus rhythm. -Patient had successful cardioversion x 2 to sinus rhythm which she is currently maintaining. 4. Type 2 VA, not present on admission. Resolved. -As anticipated patient had troponin leak due to demand ischemia in setting of atrial fibrillation with RVR and later had a cardioversion x2. Patient denies chest pain or ACS symptoms. No need to further trend troponin. -Ordered echocardiogram, pending. 5. DJD status post right total arthroplasty, acute on chronic, present on admission. Improving. -Status post right total hip arthroplasty on 09/12. -Continue postoperative and pain management per Orthopedic surgery. 6. Likely acute transaminitis, unclear if present on admission. Active. -Likely medication induced and related to amiodarone and acetaminophen versus fatty liver disease. -Per patient's cardiology group at [facility] held amiodarone as LFTs are elevating. Also held acetaminophen. -Continue monitoring LFTs closely. -Ordered liver ultrasound, pending. 7. CAD, chronic, present on admission. Stable. -Patient has history of CABG x1 vessel. -Patient endorse lightheadedness and dizziness with diaphoresis due to arrhythmia which has resolved with cardioversion. Denies chest pain or ACS symptoms. -Held aspirin, carvedilol, and lisinopril due to hypotension related to acute blood loss as above. Continue rosuvastatin 40 mg at bedtime. 8. History of mechanical aortic valve, chronic, present admission. Stable. -Held warfarin as INR is supratherapeutic at 3.2. Discontinued Lovenox and held aspirin. Plan to discuss warfarin and amiodarone management with patient's cardiology group at [facility] again. -Continue to monitor INR daily. Goal INR 2.0-3.0. 9. Hyperlipidemia, chronic, present on admission. Stable. -Continue rosuvastatin 40 mg daily at bedtime and ezetimibe 10 mg daily at bedtime. 10. Hypothyroidism, chronic condition, present on admission, stable -TSH normal at 3.93. Continue levothyroxine 125 mcg daily. Full code. No formal health directive per patient, however patient designates her daughters Sharri and Angela, as surrogate decision makers. VTE prophylaxis: Warfarin and SCDs. Thank you for this most interesting consult. Medicine team will continue to follow along with you.
[2019-09-15] MEDS: BACLOFEN 10 MG TABLET PO ×2 (11:56→20:48)
--- NOTE | 2019-09-15 12:23 | DI.US.S_ITS ---
PROCEDURE: US ABDOMEN LIMITED INDICATIONS: ELEVATED LFTS TECHNIQUE: Real-time scanning was performed of the abdominal and retroperitoneal organs, with image documentation. COMPARISON: None. FINDINGS: Liver: Within normal limits in size. Mildly heterogeneous in echotexture. Slight increased in echogenicity. Gallbladder: Gallstones are present. Normal gallbladder wall thickness. No pericholecystic fluid. Negative sonographic Chatman's sign. Biliary ducts: Intrahepatic bile ducts are non-dilated. Extrahepatic bile duct caliber measures 6 mm. Normal is 6-7 mm or less in diameter, or 10 mm or less post-cholecystectomy. Pancreas: Not well-seen. Right kidney: No hydronephrosis. IMPRESSION: 1. Increased hepatic echogenicity most consistent with hepatic steatosis. Other forms of hepatocellular disease could have similar appearance. 2. Gallbladder is mildly prominent and gallstones are present. However, no gallbladder wall thickening, sonographic Chatman's sign, or pericholecystic fluid to suggest acute cholecystitis. Dictated by: Hussain Carter M.D. on 09/15/2019 at 16:49 Approved by: Hussain Carter M.D. on 09/15/2019 at 16:54
--- NOTE | 2019-09-15 15:23 | PT-IP ANOTE ---
Pt unavailable per RN, pt awaiting IV placement.
[2019-09-15] MEDS: ROSUVASTATIN 10 MG TABLET 40 MG PO (20:47)
[2019-09-15] MEDS: PANTOPRAZOLE 40 MG TABLET PO (20:48)
[2019-09-15] MEDS: EZETIMIBE 10 MG TABLET PO (20:49)
--- NOTE | 2019-09-15 22:44 | PC.NURSE ---
2154 - Pt resting in bed. PRBC infusion complete. IV saline lock. Drsg to right hip with a moderate amount of shadow drainage. Pt reports pain currently controlled, however some spasms present. SCD's on. Positioned for comfort. Warm blanket provided. Supportive daughter at bedside. Discussed treatment plan and increasing activity in a.m. Pt verbalized understanding. Call light in reach.
[2019-09-16] VITALS (7 sets, daily range): BP systolic 97–120; BP diastolic 46–58; PULSE 90–102; RESP 16–25; TEMP 36.1–37; O2SAT 95–98
[2019-09-16] MEDS: PRAMIPEXOLE 0.25 MG TABLET 0.75 MG PO (01:33)
[2019-09-16] MEDS: TRAMADOL 50 MG TABLET 100 MG PO ×2 (02:46→10:08)
[2019-09-16 03:26] LABS: Add Manual Diff / Slide Review NO; Basophils Absolute Auto 100 /uL (0-100); Basophils Percent Auto 0.5 % (0-2); Eosinophils Absolute Auto 400 /uL (0-450); Eosinophils Percent Auto 3.3 % (2-4); Hematocrit 22.1 % (36-46); Hemoglobin 7.9 g/dL (12.0-16.0); Lymphocytes Absolute Auto 2200 /uL (1100-4500); Mean Corpuscular HGB Conc 35.7 % (30-36); Mean Corpuscular Hemoglobin 33.3 PG (26-34); Mean Corpuscular Volume 93.1 fL (80-100); Monocytes Absolute Auto 1500 /uL (0-900); Monocytes Percent Auto 13.1 % (3-14); Neutrophils Absolute Auto 7300 /uL (1500-7000); Neutrophils Percent Auto 64.1 % (50-75); Platelet Count 211 X10^3/uL (150-400); Red Blood Cell Count 2.37 X10^6/uL (4.0-5.2); Red Cell Distribution Width 14.8 % (11.6-14.8); White Blood Cell Count 11.4 X10^3/uL (4.5-11.0)
[2019-09-16 03:40] LABS: Alanine Aminotransferase 71 IU/L (<35); Albumin 2.5 g/dL (3.5-5.0); Alkaline Phosphatase 43 U/L (38-126); Aspartate Aminotransferase 85 IU/L (14-36); Bilirubin Total 1.5 mg/dL (0.2-1.3); Blood Urea Nitrogen 11 mg/dL (7-17); Calcium 7.2 mg/dL (8.4-10.2); Carbon Dioxide 29 mmol/L (22-32); Chloride 94 mmol/L (98-107); Estimated Glomerular Filt Rate > 60.0 mL/min (>60); Globulin 2.6 g/dL (1.7-4.1); Glucose 112 mg/dL (80-110); HEMOLYSIS < 15 (0-50); Potassium 4.4 mmol/L (3.4-5.1); Sodium 130 mmol/L (137-145); Total Protein 5.1 g/dL (6.3-8.2)
[2019-09-16 04:24] LABS: INR 3.7 (0.9-1.3); Prothrombin Time 41.5 SECONDS (10.1-12.7)
[2019-09-16] MEDS: BACLOFEN 10 MG TABLET PO (08:22)
[2019-09-16] MEDS: LEVOTHYROXINE 125 MCG TABLET PO (08:22)
[2019-09-16] MEDS: DOCUSATE 100 MG CAPSULE PO ×2 (08:22→20:57)
[2019-09-16] MEDS: polyethylene glycoL 3350 17 GM POWD.PACK PO (08:22)
--- NOTE | 2019-09-16 09:54 | PC.NURSE ---
Addendum entered by Joe Marie R.N. 09/16/19 14:50: Order rec'd to administer enema. Pt is sleeping comfortably sitting up to chair at this time. Due to pt requiring max A x2, will coordinate administration with PT/OT. Called to DIALER who states she and OT will see pt this afternoon and will call with a time. Addendum entered by Joe Marie R.N. 09/16/19 14:41: Ortho PA rounded ~1130. Reported continued oozing from incision, mainly noted at medial point. Requiring multiple dsg changes per day. Pt sleeping at this time. PA states she will come back later. Addendum entered by Joe Marie R.N. 09/16/19 10:52: Pt stood at bedside. Premedication given prior to session. Removed saturated dressing and placed new dsg with xtrasorb, gauze and secured with tape. Incision is well approximated with lizzette. Still some trickling of blood at the medial point of the incision and unchanged bruising slick incision; less bleeding than this RNs previous assessment on 09/15. Scabs around wound from previous tape removal. Pt tolerated fair. PT/OT and IMPORT COORDINATOR remain at bedside for therapy session. Supportive daughter at bedside. Original Note: Dr. Díaz on rounds. Discussed labs, VS, rhythm/rates, frequent ectopy. Discussed INR. Discussed pt continually oozing blood from dsg. Reviewed radiology results.
[2019-09-16] MEDS: SODIUM CHLORIDE 0.9% FLUSH 10 ML IV ×2 (10:09→21:00)
--- NOTE | 2019-09-16 12:46 | PT.IPTN ---
Current Diagnoses Unilateral primary osteoarthritis, right hip (09/10/19) Surgery Performed Operation Date: 09/10/19 07:45 Actual Procedures p Total Hip Arthroplasty(Right) - Rod Randhawa MD Physical Therapy Treatment Note M2 PT-IP Current Condition Start: 09/10/19 17:18 Freq: NEEDED Status: Active Protocol: Document 09/14/19 11:55 NFW (Rec: 09/14/19 12:10 NFW [id number]) Physical Therapy Current Condition Precautions Posterior Hip Precautions No Hip Flexion > 90 degrees,No Hip Internal Rotation,No Hip Adduction Other Precautions Monitor BP Weight Bearing Status Weight Bearing Status Full Weight Bearing M3 PT-IP Subjective Start: 09/10/19 17:18 Freq: NEEDED Status: Active Protocol: Document 09/16/19 10:30 NFW (Rec: 09/16/19 12:46 NFW [id number]) Subjective Physical Therapy Visit Type Type Treatment Note Visit Start Time 10:30 Visit Stop Time 10:50 Total Visit Minutes 20 Number of PICCOLO MECHANIC Visits 0 Physical Therapy Visit Comments Patient Comments Reporting that she's real sleepy and doesn't know if she can get up. Pt in chair and has been in the chair ~ 1 hour . Therapy Pain Assessment Pain When Pain Assessed At Rest Pain Present Pain Present Pain Reported M4 PT-IP Mobility and Gait Start: 09/10/19 17:18 Freq: NEEDED Status: Active Protocol: Document 09/16/19 10:30 NFW (Rec: 09/16/19 12:46 NFW [id number]) PT-Transfer Assessment Sit to and From Stand Sit to and from Stand Maximum Assistance,2 Person Assistance Equipment Transfer Assistive Device Gait Belt,Front Wheeled Walker Orthotic/Prosthetic Devices or Brace: No Transfer Ability Level of Assist Maximum Assistance,2 Person Assistance,Use of Upper Extremities Comments Mobility Comments Pt requiring max assist of 2 to stand and for assist in proper positioning on RLE. Pt stood for ~ 6 minutes for dressing change and changing of chairs. Encouragement required throughout. Bears most weight onto LLE. Stated that she felt like her LLE was going to buckle. Gait Assessment Comments Gait Comments Again, unable to ambulate this visit. Mainly standing and wt shifting. M5 PT-IP Objective Assessments Start: 09/10/19 17:18 Freq: NEEDED Status: Active Protocol: Document 09/10/19 15:25 AB (Rec: 09/10/19 17:31 AB [id number]) Orientation Orientation/Cognition Level of Alertness Alert Orientation Name,Place,Situation Language Function Ability No Deficits Noted Safety Awareness Decreased Safety Awareness Memory Description Short Term Impaired Gross Range of Motion Lower Extremity ROM Assessment Right Impaired Impairments RLE tightness and increase guarding affecting PROM Strength Lower Extremity Strength Assessment Bilaterally Impaired Hip R: 3+/5 L: 4-/5 Knee R: 3-/5 L: 3+/5 Sensation Assessment Sensation Gross Sensation WNL Muscle Tone Muscle Tone WNL Yes M6 PT-IP Treatment Start: 09/10/19 17:18 Freq: NEEDED Status: Active Protocol: Document 09/16/19 10:30 NFW (Rec: 09/16/19 12:46 NFW [id number]) Physical Therapy Treatment Exercises Exercises Ankle Pumps M7 PT-IP Assessment and Plan Start: 09/10/19 17:18 Freq: NEEDED Status: Active Protocol: Document 09/16/19 10:30 NFW (Rec: 09/16/19 12:46 NFW [id number]) PT Summary Assessment and Plan Potential Rehabilitation Potential Fair Status of Condition at Evaluation Evolving Summary Impairments Pain,ROM,Strength,Balance, Coordination,Sensation,Tone, Cognition,Bed Mobility, Transfers,Gait,Activity Tolerance Progress Towards Goals Slow Progress due to Pain,Slow Progress due to Activity Tolerance Assessment Summary Pt quiet tired today and needed encouragement to follow through with treatment. c/o lightheadedness during and after treatment. Goals Bed Mobility Goal Minimal Assistance,Moderate Assistance Transfer Goal Minimal Assistance,Moderate Assistance,Front Wheeled Walker Gait Goal Minimal Assistance,Moderate Assistance,Front Wheel Walker Gait Distance 10 Other Goals revised goals this visit due to patients change in status during this admission Days to Meet Goals 3 Frequency of Treatment Frequency Of Treatment Twice a Day Treatment Plan Physical Therapy Treatment Plan Bed Mobility Training,Transfer Training,Gait Training, Therapeutic Exercise,Balance Retraining,Post Op Education, Discharge Planning,Hot or Cold Pack,Neuromuscular Re-ed, Coordination Retraining,Manual Therapy Recommendations To Nursing Amount of Assist Needed 2 Person Assist Discharge Recommendations PT Discharge Recommendations SNF Rehab
--- NOTE | 2019-09-16 14:16 | P.PN_ITS ---
Subjective Subjective Date Patient Seen: 09/16/19 Interval history: Glenys Munoz is a 79-year-old female with a past medical history significant for coronary artery disease status post CABG x1 vessel, cardiomyopathy, left bundle branch block, aortic stenosis status post mechanical aortic valve on warfarin, hypertension, hyperlipidemia, hypothyroidism, osteoarthritis, osteoporosis, restless leg syndrome, and morbid obesity who presented for elective right total hip arthroplasty. Medicine team has been consulted to manage patient's atrial fibrillation with RVR. The patient is resting in bedside chair and appears comfortable. She continues to be mildly fatigued and closing her eyes during conversation. Her surgical site continues to mildly ooze. Her INR is supratherapeutic and rising now 3.7 due to previous administration of amiodarone. Continuing to hold warfarin. Her hemoglobin has improved and is now 7.9 status post 4 units PRBC total. Her blood pressure and heart rate have continued to be improved. Her right lower extremity muscle spasms have improved. She has no other complaints and denies headache, chest pain, shortness of breath, abdominal pain, nausea, vomiting, fever, chills, dysuria, diarrhea or constipation. Her appetite continues to improve. She is voiding via Hamilton catheter. She has not had a BM since admission and a bowel regimen has been implemented plan to give suppository and/or enema today. Continue PT and OT. Exam Vital Signs (past 8 hours): - 09/16/19 07:46 09/16/19 11:00 Temperature 97.6 F 97.0 F L Pulse Rate 100 H 93 H Respiratory Rate 25 H 21 Blood Pressure 102/53 L 111/57 L Pulse Oximetry 98 98 Oxygen Delivery Method Room Air Oxygen Flow Rate 0 Narrative Exam Narrative: General: Elderly morbidly obese female lying in bed and in no acute distress, well-developed, appropriately interactive. HEENT: Normocephalic, atraumatic. External ears without defect. Pupils equal, round, and reactive to light. Anicteric sclera, moist conjunctivae and no lid lag. Oropharynx free of erythema and cobble stoning with moist mucosa. Neck: Supple with full range of motion. No jugular venous distension. No lymphadenopathy or thyromegaly. Cardiovascular: Regular rate and rhythm with ejection murmur. No rubs or gallops appreciated. Pulmonary: Clear to auscultation bilaterally without crackles, wheezes, or rhonchi. Normal respiratory effort with no use of accessory muscles. Abdomen: Soft, obese, bowel sounds present, nontender, nondistended. No hepatosplenomegaly or masses appreciated. Extremities: No clubbing or cyanosis. Bilateral lower extremity lipedema. Right hip with bandage in place C/D/I with mild surrounding edema and warmth compared to left hip. Skin: Normal temperature, turgor, and texture; no rash, ulcers, or subcutaneous nodules appreciated. Neurological: Cranial nerves grossly intact. Psychiatric: Mildly anxious mood and normal affect. Alert and oriented to person, place, and time. Objective Labs Result Diagrams: 09/16/19 03:00 09/16/19 03:00 Labs: Laboratory Results - last 24 hr 09/12/19 09/16/19 09/16/19 23:45 03:00 03:00 WBC 11.4 H RBC 2.37 L Hgb 7.9 L Hct 22.1 L MCV 93.1 MCH 33.3 MCHC 35.7 RDW 14.8 Plt Count 211 Neut % (Auto) 64.1 Lymph % (Auto) 19.0 L [place] % (Auto) 13.1 Eos % (Auto) 3.3 Baso % (Auto) 0.5 Neut # (Auto) 7300 H Lymph # (Auto) 2200 [place] # (Auto) 1500 H Eos # (Auto) 400 Baso # (Auto) 100 PT 41.5 H INR 3.7 H Sodium Potassium Chloride Carbon Dioxide BUN Creatinine Estimated GFR BUN/Creatinine Ratio Glucose Calcium Total Bilirubin AST ALT Alkaline Phosphatase Total Protein Albumin Globulin Albumin/Globulin Ratio Blood Type A Positive Antibody Screen Negative Crossmatch See Detail 09/16/19 03:00 WBC RBC Hgb Hct MCV MCH MCHC RDW Plt Count Neut % (Auto) Lymph % (Auto) [place] % (Auto) Eos % (Auto) Baso % (Auto) Neut # (Auto) Lymph # (Auto) [place] # (Auto) Eos # (Auto) Baso # (Auto) PT INR Sodium 130 L Potassium 4.4 Chloride 94 L Carbon Dioxide 29 BUN 11 Creatinine 0.50 L Estimated GFR > 60.0 BUN/Creatinine Ratio 22.0 Glucose 112 H Calcium 7.2 L Total Bilirubin 1.5 H AST 85 H ALT 71 H Alkaline Phosphatase 43 Total Protein 5.1 L Albumin 2.5 L Globulin 2.6 Albumin/Globulin Ratio 1.0 Blood Type Antibody Screen Crossmatch Assessment & Plan Assessment & Plan narrative: Glenys Munoz is a 79-year-old female with a past medical history significant for coronary artery disease status post CABG x1 vessel, cardiomyopathy, left bundle branch block, aortic stenosis status post mechanical aortic valve on warfarin, hypertension, hyperlipidemia, hypothyroidism, osteoarthritis, osteoporosis, restless leg syndrome, and morbid obesity who presented for elective right total hip arthroplasty. Medicine team has been consulted to manage patient's atrial fibrillation with RVR. 1. Acute blood loss anemia, not present on admission. Active. -Initial hemoglobin 11.8. Patient continues to ooze from surgical site and hemoglobin remains low and trending down now 7.9 due to acute blood loss and hemodilution. Patient has received 4 units PRBC total. -Continue to monitor H&H closely. Transfusion goal hemoglobin < 8.0. -Held warfarin as INR is supratherapeutic at 3.2. Continue to monitor INR daily. Discontinued Lovenox and held aspirin. -Ordered iron panel which demonstrated iron deficiency anemia. Plan to start iron supplementation with been Venofer 100 mg x 1 and ferrous gluconate 325 mg daily thereafter. 2. Acute postoperative hypotension in setting of chronic hypertension, not present on admission. Resolved. -Patient was hypotensive due to acute blood loss as below and decreased PO intake. Her blood pressure improved with IV fluid and PRBCs administration. -Discontinued IV fluids as patient is adequately hydrated. Received 3 units PRBC and plan to receive another 1 unit PRBC today. -Held antihypertensives including carvedilol 25 mg twice daily and lisinopril 5 mg daily at bedtime. 3. Acute postoperative atrial fibrillation with RVR, not present on admission. Resolved. -New onset (appears to be less than 48 hours), no prior known history, suspected to be a postoperative complication. -TSH within normal limits. -Electrolytes within normal limits. Continue to monitor electrolytes closely and replete as necessary. Goal K > 4.0 and Mg > 2.0. -Received amiodarone 150 mg bolus and 24 hour gtt per protocol. Per patient's cardiology group at [facility] held amiodarone as LFTs are elevating and plan to restart at lower dose once LFTs have improved. -Received digoxin 250 mcg IV Q4H x 2 doses then discontinued as patient was cardioverted to sinus rhythm. -Patient had successful cardioversion x 2 to sinus rhythm. -Continue to monitor closely on telemetry. Patient remains in sinus rhythm with ectopy in form of frequent PVCs. 4. Likely acute possibly on chronic mild transaminitis, unclear if present on admission. Improving. -Likely medication induced and related to amiodarone and acetaminophen versus fatty liver disease. -Per patient's cardiology group at [facility] held amiodarone as LFTs are elevating. Also held acetaminophen. -Initial LFTs: Total bilirubin 0.7, AST 48, ALT 27, alk-phos 34. LFTs likely peaked and now trending down. Continue monitoring LFTs closely. -liver ultrasound demonstrated increased hepatic echogenicity most consistent with hepatic steatosis and gallbladder is mildly prominent with gallstones present but no gallbladder wall thickening, sonographic Chatman's sign, or pericholecystic fluid to suggest acute cholecystitis. 5. DJD status post right total arthroplasty, acute on chronic, present on admission. Improving. -Status post right total hip arthroplasty on 09/12. -Continue postoperative and pain management per Orthopedic surgery. -Implemented bowel regimen as patient has not had BM since admission. Plan to give suppository and/or mineral oil enema today. 6. Type 2 HI, not present on admission. Resolved. -As anticipated patient had troponin leak due to demand ischemia in setting of atrial fibrillation with RVR and later had a cardioversion x2. Patient denies chest pain or ACS symptoms. No need to further trend troponin. -Ordered echocardiogram, pending. 7. CAD, chronic, present on admission. Stable. -Patient has history of CABG x1 vessel. -Patient endorse lightheadedness and dizziness with diaphoresis due to arrhythmia which has resolved with cardioversion. Denies chest pain or ACS symptoms. -Held aspirin, carvedilol, and lisinopril due to hypotension related to acute blood loss as above. Continue rosuvastatin 40 mg at bedtime. 8. History of mechanical aortic valve, chronic, present admission. Stable. -Held warfarin as INR is supratherapeutic at 3.2. Discontinued Lovenox and held aspirin. Per patient's cardiology group at [facility], held amiodarone as LFTs are elevating and plan to restart at lower dose once LFTs have improved and held warfarin until bleeding stops and INR drifts down to 2.0. -Continue to monitor INR daily. Goal INR 2.0-3.0. 9. Hyperlipidemia, chronic, present on admission. Stable. -Continue rosuvastatin 40 mg daily at bedtime and ezetimibe 10 mg daily at bedtime. 10. Hypothyroidism, chronic condition, present on admission, stable -TSH normal at 3.93. Continue levothyroxine 125 mcg daily. Full code. No formal health directive per patient, however patient designates her daughters Sharri and Angela, as surrogate decision makers. VTE prophylaxis: Warfarin and SCDs. Thank you for this most interesting consult. Medicine team will continue to follow along with you.
--- NOTE | 2019-09-16 15:33 | CM.DPC ---
DCP Cont: Per MD, pt on p.o. amnio now and INR has been therapeutic, and pt has been changed to floor care but pt still has some oozing from her surgical sight and has required transfusion and oozing will likely slow. Per Ortho MD, pt not quite stable for d/c to SNF yet today. Plan: SW to follow for plan of d/c to [facility] when medically stable and PASRR previously completed. SW to keep family updated when pt ready for d/c. SHANIKA Garber
--- NOTE | 2019-09-16 15:40 | PT.IPTN ---
Current Diagnoses Unilateral primary osteoarthritis, right hip (09/10/19) Surgery Performed Operation Date: 09/10/19 07:45 Actual Procedures p Total Hip Arthroplasty(Right) - Rod Randhawa MD Physical Therapy Treatment Note M2 PT-IP Current Condition Start: 09/10/19 17:18 Freq: NEEDED Status: Active Protocol: Document 09/14/19 11:55 NFW (Rec: 09/14/19 12:10 NFW [id number]) Physical Therapy Current Condition Precautions Posterior Hip Precautions No Hip Flexion > 90 degrees,No Hip Internal Rotation,No Hip Adduction Other Precautions Monitor BP Weight Bearing Status Weight Bearing Status Full Weight Bearing M3 PT-IP Subjective Start: 09/10/19 17:18 Freq: NEEDED Status: Active Protocol: Document 09/16/19 13:40 CLB (Rec: 09/16/19 17:49 CLB [id number]) Subjective Physical Therapy Visit Type Type Treatment Note Visit Start Time 15:40 Visit Stop Time 16:33 Total Visit Minutes 53 Notes Co-treat with OT. daughter present during tx. Number of WALLCOVERING TEXTURER Visits 1 Physical Therapy Visit Comments Patient Comments RN requested pt sit on BSC then return to bed. Therapy Pain Assessment Pain When Pain Assessed At Rest Pain Present Pain Present Pain Reported Location right hip Intensity 5 Scale Used Numeric (1 - 10) Pain Behaviors Facial Grimacing Pain Management Techniques Re-positioning M4 PT-IP Mobility and Gait Start: 09/10/19 17:18 Freq: NEEDED Status: Active Protocol: Document 09/16/19 13:40 CLB (Rec: 09/16/19 17:49 CLB [id number]) PT-Bed Mobility Assessment Sit to Supine Sit to Supine Total Assistance,2 Person Assistance Scooting Scooting Up and Down in Bed Dependent PT-Transfer Assessment Sit to and From Stand Sit to and from Stand Maximum Assistance,2 Person Assistance,Use of Upper Extremities Equipment Transfer Assistive Device Gait Belt,Front Wheeled Walker Orthotic/Prosthetic Devices or Brace: No Transfer Ability Level of Assist Maximum Assistance,2 Person Assistance,Use of Upper Extremities Comments Mobility Comments Pt required max A x2 for sit- stand with assist to move out right foot before standing. Pt stood then took small steps to pivot from chair to BSC requiring Mod A x2 and assist with walker management. Pt sat on BSC to try and have BM. Pt then required Max A x3 to stand from BSC and Mod A x2 for standing balance as RN performed pericare. Pt then required Mod A x2 to take small pivot steps to bed. Pt required Total assist x3 for sit-supine, centering pt in bed with draw sheet, and scooting to HOB. Pt left in bed with daughter and OT present. Gait Assessment Comments Gait Comments Again, unable to ambulate this visit. Mainly standing and wt shifting. M5 PT-IP Objective Assessments Start: 09/10/19 17:18 Freq: NEEDED Status: Active Protocol: Document 09/10/19 15:25 AB (Rec: 09/10/19 17:31 AB [id number]) Orientation Orientation/Cognition Level of Alertness Alert Orientation Name,Place,Situation Language Function Ability No Deficits Noted Safety Awareness Decreased Safety Awareness Memory Description Short Term Impaired Gross Range of Motion Lower Extremity ROM Assessment Right Impaired Impairments RLE tightness and increase guarding affecting PROM Strength Lower Extremity Strength Assessment Bilaterally Impaired Hip R: 3+/5 L: 4-/5 Knee R: 3-/5 L: 3+/5 Sensation Assessment Sensation Gross Sensation WNL Muscle Tone Muscle Tone WNL Yes M6 PT-IP Treatment Start: 09/10/19 17:18 Freq: NEEDED Status: Active Protocol: Document 09/16/19 10:30 NFW (Rec: 09/16/19 12:46 NFW [id number]) Physical Therapy Treatment Exercises Exercises Ankle Pumps M7 PT-IP Assessment and Plan Start: 09/10/19 17:18 Freq: NEEDED Status: Active Protocol: Document 09/16/19 13:40 CLB (Rec: 09/16/19 17:49 CLB [id number]) PT Summary Assessment and Plan Potential Rehabilitation Potential Fair Status of Condition at Evaluation Evolving Summary Impairments Pain,ROM,Strength,Balance, Coordination,Sensation,Tone, Cognition,Bed Mobility, Transfers,Gait,Activity Tolerance Progress Towards Goals Slow Progress due to Pain,Slow Progress due to Activity Tolerance Assessment Summary Pt progressing with transfer ability and was able to stand from chair Max A x2 and was able to perform stand step pivot to BSC then to bed requiring Mod A x2. Pt was able to advance RLE during transfer and bear weight through RLE. Pt O2 drops with activity and required cues for deep breathing. Goals Bed Mobility Goal Minimal Assistance,Moderate Assistance Transfer Goal Minimal Assistance,Moderate Assistance,Front Wheeled Walker Gait Goal Minimal Assistance,Moderate Assistance,Front Wheel Walker Gait Distance 10 Other Goals revised goals this visit due to patients change in status during this admission Days to Meet Goals 3 Frequency of Treatment Frequency Of Treatment Twice a Day Treatment Plan Physical Therapy Treatment Plan Bed Mobility Training,Transfer Training,Gait Training, Therapeutic Exercise,Balance Retraining,Post Op Education, Discharge Planning,Hot or Cold Pack,Neuromuscular Re-ed, Coordination Retraining,Manual Therapy Other Recommendations and Next Treatment ambulate with chair follow, Focus transfers Recommendations To Nursing Amount of Assist Needed 2 Person Assist Discharge Recommendations PT Discharge Recommendations SNF Rehab
--- NOTE | 2019-09-16 15:40 | P.PN_ITS ---
Subjective Subjective Date Patient Seen: 09/16/19 Interval history: Patient is POD#6 s/p right posterior PRIETO with Dr. Randhawa. She reports she continues to feel fatigued but feels better today with improved appetite. She received a 4th unit of PRBC yesterday. H&H today of 7.9/22.1 and INR of 3.7. Hospitalist continues to hold Warfarin. She mobilized from bed to chair today. Exam Vital Signs (past 8 hours): - 09/16/19 07:46 09/16/19 11:00 09/16/19 15:40 Temperature 97.6 F 97.0 F L 98.3 F Pulse Rate 100 H 93 H 93 H Respiratory Rate 25 H 21 23 Blood Pressure 102/53 L 111/57 L 120/56 L Pulse Oximetry 98 98 Oxygen Delivery Method Room Air Oxygen Flow Rate 0 Narrative Exam Narrative: 79 year old female resting in chair. Somewhat drowzy during conversation but answering questions appropriately. Pressure dressing in place over the right hip with area of drainage at center of incision. Per nursing this was changed 1 hour prior to exam. Patient able to flex an extend the foot. Palpable pedal pulses. Calves soft, compresibe. Objective Labs Result Diagrams: 09/16/19 03:00 09/16/19 03:00 Labs: Laboratory Results - last 24 hr 09/12/19 09/16/19 09/16/19 23:45 03:00 03:00 WBC 11.4 H RBC 2.37 L Hgb 7.9 L Hct 22.1 L MCV 93.1 MCH 33.3 MCHC 35.7 RDW 14.8 Plt Count 211 Neut % (Auto) 64.1 Lymph % (Auto) 19.0 L [place] % (Auto) 13.1 Eos % (Auto) 3.3 Baso % (Auto) 0.5 Neut # (Auto) 7300 H Lymph # (Auto) 2200 [place] # (Auto) 1500 H Eos # (Auto) 400 Baso # (Auto) 100 PT 41.5 H INR 3.7 H Sodium Potassium Chloride Carbon Dioxide BUN Creatinine Estimated GFR BUN/Creatinine Ratio Glucose Calcium Total Bilirubin AST ALT Alkaline Phosphatase Total Protein Albumin Globulin Albumin/Globulin Ratio Blood Type A Positive Antibody Screen Negative Crossmatch See Detail 09/16/19 03:00 WBC RBC Hgb Hct MCV MCH MCHC RDW Plt Count Neut % (Auto) Lymph % (Auto) [place] % (Auto) Eos % (Auto) Baso % (Auto) Neut # (Auto) Lymph # (Auto) [place] # (Auto) Eos # (Auto) Baso # (Auto) PT INR Sodium 130 L Potassium 4.4 Chloride 94 L Carbon Dioxide 29 BUN 11 Creatinine 0.50 L Estimated GFR > 60.0 BUN/Creatinine Ratio 22.0 Glucose 112 H Calcium 7.2 L Total Bilirubin 1.5 H AST 85 H ALT 71 H Alkaline Phosphatase 43 Total Protein 5.1 L Albumin 2.5 L Globulin 2.6 Albumin/Globulin Ratio 1.0 Blood Type Antibody Screen Crossmatch Assessment & Plan Assessment & Plan narrative: Patient continues to have some drainage from her incision. Per Dr. Randhawa as long as this continues to improve will continue pre ssure dressing and monitor at this point. Patient is to remain on bed rest with bathroom privileges until drainage abates. Appreciate hospitalist management and continued care.
[2019-09-16 16:20] LABS: HEMOLYSIS < 15 (0-50); Iron 21 ug/dL (37-170)
[2019-09-16] MEDS: TRAMADOL 50 MG TABLET PO (16:32)
[2019-09-16] MEDS: MINERAL OIL 1 EACH ENEMA PR (16:32)
--- NOTE | 2019-09-16 16:37 | OT.IP.EVAL ---
Current Diagnoses Unilateral primary osteoarthritis, right hip (09/10/19) Surgery Performed Operation Date: 09/10/19 07:45 Actual Procedures p Total Hip Arthroplasty(Right) - Rod Randhawa MD Past Medical History (Last Reviewed 09/12/19 @ 23:18 by YVONNE Romero) CAD (coronary artery disease) (Acute) Cardiomyopathy (Acute) GERD (gastroesophageal reflux disease) (Acute) Glucose intolerance (Acute) Hearing impaired (Acute) HLD (hyperlipidemia) (Acute) HTN (hypertension) (Acute) Hypothyroidism (Acute) LBBB (left bundle branch block) (Acute) Nonrheumatic aortic (valve) stenosis (Acute) Osteoarthritis (Acute) Osteoporosis (Acute) Panic disorder (Acute) RLS (restless legs syndrome) (Acute) Systolic heart failure (Acute) T12 compression fracture (Acute 06/04/12) Urinary incontinence (Acute) Vertigo (Acute) Surgical History (Last Reviewed 09/12/19 @ 23:18 by YVONNE Romero) H/O: hysterectomy (Acute) History of aortic valve replacement (Acute ~2001) History of lumpectomy of right breast (Acute) Hx of bilateral cataract extraction (Acute) Hx of removal of cyst (Acute) Hx of tonsillectomy (Acute) S/P CABG x 1 (Acute ~2001) Occupational Therapy Inpatient Evaluation/Re-Eval M1 PT/OT-IP Prior Functional Status Start: 09/16/19 17:37 Freq: NEEDED Status: Active Protocol: Document 09/16/19 18:29 [facility] (Rec: 09/16/19 18:50 [facility] [id number]) Medical Review Prior Functional Status Medical History Reviewed Yes Communication able to make needs known but with some confusion Mobility and Gait pt stated that she is modified independent with all mobilities and ambulation using 2 canes Activities of Daily Living and IADL's Pt just needing assist to dry/ wash her feet and back, but otherwise was independent with ADL, IADL, medication and bills. Social History Household Members spouse,family Living Arrangements House Number of Floors (Floors) One Floor Number of Stairs To Enter/Railing? 1 step to enter Home Environment High Toilet,Tub/Shower Home Equipment Front Wheel Walker,Straight Cane,Tub Transfer Bench,Hand Held Shower,Grab Bars In Shower Additional Social History Comment pt plans to have her daughter stay with her to assist her as needed pt has a toilet safety frame, an adjustable bed M2 OT-IP Current Condition Start: 09/16/19 17:37 Freq: Status: Active Protocol: Document 09/16/19 18:29 [facility] (Rec: 09/16/19 18:50 [facility] [id number]) Occupational Therapy Current Condition Current Condition Evaluation Date 09/16/19 Treatment Diagnosis s/p right PRIETO posterior approach Post Operative Precautions Posterior Hip Precautions No Hip Flexion > 90 degrees,No Hip Internal Rotation,No Hip Adduction Weight Bearing Status Weight Bearing Status Weight Bear as Tolerated M3 OT- IP Subjective and Pain Start: 09/16/19 17:37 Freq: Status: Active Protocol: Document 09/16/19 18:29 [facility] (Rec: 09/16/19 18:50 [facility] [id number]) OT- Subjective Occupational Therapy Visit Type Type Initial Evaluation Visit Start Time 15:36 Visit Stop Time 16:37 Total Visit Minutes 46 Notes No charge when waiting for pt to use the commode. Occupational Therapy Visit Comments Patient Comments Pt needing encouragement to get up and try to use the BSC. Pt's daughter in the room . Patient/Caregiver Goals To go to rehab and get stronger and be able to take care of herself. OT Pain Assessment Pain When Pain Assessed During Mobility Pain Present Pain Present Pain Reported Location right hip Intensity 5 Scale Used Numeric (1 - 10) M4 OT- IP ADL's Start: 09/16/19 17:37 Freq: Status: Active Protocol: Document 09/16/19 18:29 [facility] (Rec: 09/16/19 18:50 [facility] [id number]) OT [id number] Comments OT Self-Feeding Comments Not at meal time. OT ADL-Grooming Comments OT Grooming Comments No performed. OT ADL-Dressing General Eval Lower Body Dressing Ability Total Assistance Areas Needing Assistance Socks OT ADL-Toileting General Evaluation Toileting Ability Total Assistance Areas Needing Assistance Manage Clothing,Perform Perineal Hygiene Devices Toileting Assistive Devices Commode OT ADL-Bathing Comments OT Bathing Comments NOt at this time. M5 OT- IP IADL's Start: 09/16/19 17:37 Freq: Status: Active Protocol: Document 09/16/19 18:29 [facility] (Rec: 09/16/19 18:50 [facility] [id number]) OT-Instrumental Activities of Daily Living Home Safety Awareness Home Safety Comments Pt easily distracted and needing constant reassurance for her every move. Pt's daughter states more independent and not as easily flustered. Medication Management Medication Management Comments Prior pt able to do on her own , however may now need assist from pt's daughter that will be able to stay with her. Circular Stuffer Circular Stuffer Caregiver Provides Assist Driving Driving Caregiver Provides Assist M6 OT- IP Functional Cognition Start: 09/16/19 17:37 Freq: Status: Active Protocol: Document 09/16/19 18:29 [facility] (Rec: 09/16/19 18:50 [facility] [id number]) Cognitive Factors Limiting Selfcare Function Cognitive Ability Level of Alertness Alert Patient Orientation Name,Place,Situation Attention Span Ability Capable of Focused Attention, Unable to Sustain Attention Ability to Follow Commands Able to Follow One Step Commands with Increased Time, Able to Follow One Step Commands with Repetition Memory Description Short Term Impaired Safety Awareness Decreased Ability to Apply Precautions,Underestimates Need for Assistance Problem Solving Ability Unable to Identify Errors, Needs Assist to Identify Solutions Cognitive Comments Cognitive Assessment Comments Pt very anxious and easily distracted and needing step by step instructions and at times hand over hand assist to be able to follow hip precautions. Pt not able to recall all hip precautions at this time, only remembering not to cross her right leg over. Pt needing constant encouragement and reassurance. OT- Vision and Hearing OT- Hearing Assessment OT- Hearing Assessment WFL M7 OT- IP Mobility and Balance Start: 09/16/19 17:37 Freq: Status: Active Protocol: Document 09/16/19 18:29 [facility] (Rec: 09/16/19 18:50 [facility] [id number]) OT- Bed Mobility Assessment Sit to Supine Sit to Supine Assist Total Assistance,2 Person Assistance OT-Transfer Assessment Sit to and From Stand Sit to and from Stand Maximum Assistance,2 Person Assistance Transfers Transfer Ability Moderate Assistance,2 Person Assistance,Use of Upper Extremities Technique Transfer Destination Bed,Bedside Commode,Chair Transfer Technique Stand Step Pivot Devices Transfer Assistive Devices Gait Belt,Front Wheeled Walker Comments Mobility Comments MAX 2-3 to stand from the recliner and MODA x2 to transfer, assist to move the FWW , for balance, and heavy use of her arms to push on the FWW. Total assist back from sit to supine, OT- Balance Assessment Sitting Balance and Reactions Static Sitting Balance Ability Fair Standing Balance and Reactions Static Standing Balance Ability Poor M8 OT- IP Objective Assessments Start: 09/16/19 17:37 Freq: Status: Active Protocol: Document 09/16/19 18:29 [facility] (Rec: 09/16/19 18:50 [facility] [id number]) OT Gross Range of Motion Upper Extremity Range of Motion Assessment Right Impaired ROM Impairments shoulder flexion 0-100 for RUE OT Strength Upper Extremity Strength Assessment Within Functional Limits OT-Muscle Tone Assessment Muscle Tone WNL Yes M9 OT- IP Assessment and Plan Start: 09/16/19 17:37 Freq: Status: Active Protocol: Document 09/16/19 18:29 [facility] (Rec: 09/16/19 18:50 [facility] [id number]) OT Summary Assessment and Plan Potential Rehabilitation Potential Good Analytic Complexity at Evaluation Low Summary OT Impairments Pain,Balance,Functional Cognition,Functional Mobility, Grooming,Dressing,Toileting, Bathing,Toilet Transfers, Shower Transfers,Activity Tolerance Progress Towards Goals Slow Progress due to Pain,Slow Progress due to Activity Tolerance,Slow Progress due to Cognition Assessment Summary Pt low complexity and main barriers are pain, step at home and needing extensive assist of two persons for mobility and ADl needs at this time. Pt will benefit from skilled rehab to continue to practice and incorporate hip precautions for ADL and functional mobility needs. Goals Grooming Goal Standby Assistance Dressing Goal Minimal Assistance Toileting Goal Moderate Assistance Bathing Goal Moderate Assistance Toilet Transfer Goal Minimal Assistance Shower Transfer Goal Minimal Assistance Patient/Caregiver Education Goal Demonstrate Post-Op Precautions,Caregiver Independent Assisting Patient Days to Meet Goals 10 Frequency of Treatment Frequency Of Treatment Once a Day Treatment Plan OT Treatment Plan ADL Training,Functional Cognition Training,Functional Mobility,Patient/Family Education,Discharge Planning Other Treatment Recommendations and Next Education of LB dressing Treatment Focus equipment needs. Discharge Recommendations OT Discharge Recommendations SNF Rehab Home Equipment Needs BSC Transportation Needs at Discharge Wheelchair/Cabulance
[2019-09-16 16:46] LABS: Percent Iron Saturation 8 % (15-50); Total Iron Binding Capacity 260 ug/dL (265-497); Transferrin 192 mg/dL (206-381)
--- NOTE | 2019-09-16 17:41 | PC.NURSE ---
Addendum entered by Neda Zepeda R.N. 09/16/19 22:38: 2230 - Brief check and repositioned. +Flatus, no BM since suppository at 2030, or enema at 1630. Pt reports feeling increased urge this evening. Declines bedpan at this time. Call light in reach. Addendum entered by Neda Zepeda R.N. 09/16/19 19:16: 1845 - Surgeon PA into see pt. Drsg changed. Order obtained to hold PT and OT, change pt status to bedrest, with bed issa use. Stay off right side as much as possible, pressure drsg change daily and PRN. Original Note: 1630 - Pt working with OT and PT. Sat up on BSC, +flatus, No BM. 3 person Max assist back into bed. Enema given as ordered. Call light in reach. Monitor.
[2019-09-16] MEDS: EZETIMIBE 10 MG TABLET PO (20:57)
[2019-09-16] MEDS: ROSUVASTATIN 10 MG TABLET 40 MG PO (20:58)
[2019-09-16] MEDS: PANTOPRAZOLE 40 MG TABLET PO (20:58)
[2019-09-16] MEDS: BISACODYL 10 MG SUPP PR (20:58)
[2019-09-17] VITALS (7 sets, daily range): BP systolic 105–115; BP diastolic 55–59; PULSE 99–104; RESP 17–24; TEMP 36–37.1; O2SAT 95–98; BMI 45.0
[2019-09-17 05:10] LABS: INR 1.6 (0.9-1.3); Prothrombin Time 18.4 SECONDS (10.1-12.7)
[2019-09-17 05:15] LABS: BUN Creatinine Ratio 21.7 (6-22); Blood Urea Nitrogen 13 mg/dL (7-17); Calcium 7.7 mg/dL (8.4-10.2); Carbon Dioxide 34 mmol/L (22-32); Chloride 94 mmol/L (98-107); Estimated Glomerular Filt Rate > 60.0 mL/min (>60); Glucose 95 mg/dL (80-110); HEMOLYSIS < 15 (0-50); Hemoglobin 7.7 g/dL (12.0-16.0); Mean Corpuscular HGB Conc 35.1 % (30-36); Mean Corpuscular Hemoglobin 32.9 PG (26-34); Mean Corpuscular Volume 93.9 fL (80-100); Platelet Count 278 X10^3/uL (150-400); Red Blood Cell Count 2.34 X10^6/uL (4.0-5.2); Red Cell Distribution Width 14.7 % (11.6-14.8); Sodium 129 mmol/L (137-145); White Blood Cell Count 10.7 X10^3/uL (4.5-11.0)
[2019-09-17 05:17] LABS: Add Manual Diff / Slide Review YES
[2019-09-17] MEDS: LEVOTHYROXINE 125 MCG TABLET PO (05:55)
[2019-09-17 06:41] LABS: Neutrophils Absolute Manual 8346 /uL (3000-5900); Total Cells Counted 100
[2019-09-17 06:42] LABS: Anisocytosis 3+; Polychromasia 2+
--- NOTE | 2019-09-17 06:44 | PC.NURSE ---
NOC Note: Pt declined prn pain medication this shift, she used a c-pap while sleeping related to desating with good results. Drsg to hip changed at 0530, center of drgs was saturated with a area of shadowing on the outer layer of drsg as big around as a soft ball. Pt denies leg spasms this shift and only had smears and a very small BM this shift.
[2019-09-17 08:21] LABS: Alanine Aminotransferase 73 IU/L (<35); Albumin 2.5 g/dL (3.5-5.0); Albumin Globulin Ratio 0.9 (1.0-2.8); Alkaline Phosphatase 57 U/L (38-126); Aspartate Aminotransferase 105 IU/L (14-36); Bilirubin Total 1.6 mg/dL (0.2-1.3); Bilirubin Unconjugated 1.6 mg/dL (0.0-1.1); Globulin 2.8 g/dL (1.7-4.1); HEMOLYSIS < 15 (0-50); Total Protein 5.3 g/dL (6.3-8.2)
[2019-09-17] MEDS: polyethylene glycoL 3350 17 GM POWD.PACK PO (08:34)
[2019-09-17] MEDS: DOCUSATE 100 MG CAPSULE PO ×2 (08:34→20:50)
[2019-09-17] MEDS: BISACODYL 10 MG SUPP PR (08:34)
--- NOTE | 2019-09-17 08:34 | PM.PNPO.1 ---
Subjective Subjective Date Patient Seen: 09/17/19 Time Patient Seen: 07:15 Interval history: INR 1.6, H/H 7.7/ Dressing change 1x last shift Patient states she is feeling better and has more energy. Complains of pain in right hip. Denies numbness, tingling. Denies fever, chills, chest pain, shortness of breath, nausea, dizziness, pain in calves. Exam Vital Signs (past 8 hours): - 09/17/19 03:00 Temperature 96.8 F L Pulse Rate 104 H Respiratory Rate 24 Blood Pressure 115/58 L Pulse Oximetry 96 Oxygen Delivery Method Room Air Oxygen Flow Rate 0 Narrative Exam Narrative: 79 year old F is laying supine without pressure on right hip, in no apparent distress. A&Ox3. Dressing CDI, SCDs in place. Able to actively dorsiflex/plantar flex BL. Calves warm, soft, compressible, non tender to palpation BL. Sensory function grossly intact to light touch in LE BL. Dorsalis Pedis 2+ BL. LE non-pitting edema 3+ BL. Objective Labs Result Diagrams: 09/17/19 04:10 09/17/19 04:10 Labs: Laboratory Results - last 24 hr 09/12/19 09/12/19 09/17/19 05:35 23:45 04:10 WBC 10.7 RBC 2.34 L Hgb 7.7 L Hct 22.0 L MCV 93.9 MCH 32.9 MCHC 35.1 RDW 14.7 Plt Count 278 Neut % (Auto) Not Reportable Lymph % (Auto) Not Reportable [place] % (Auto) Not Reportable Eos % (Auto) Not Reportable Baso % (Auto) Not Reportable Lymph # (Auto) Not Reportable [place] # (Auto) Not Reportable Baso # (Auto) Not Reportable Total Counted 100 Seg Neutrophils % 77.0 H Band Neutrophils % 1.0 L Lymphocytes % (Manual) 12.0 L Monocytes % (Manual) 3.0 Eosinophils % (Manual) 5.0 H Metamyelocytes % 2.0 H Neutrophils # (Manual) 8346 H RBC Morphology See below Polychromasia 2+ H Anisocytosis 3+ H PT INR Sodium Potassium Chloride Carbon Dioxide BUN Creatinine Estimated GFR BUN/Creatinine Ratio Glucose Calcium Iron 21 L TIBC 260 L % Saturation 8 L Transferrin 192 L Total Bilirubin Conjugated Bilirubin Unconjugated Bilirubin AST ALT Alkaline Phosphatase Total Protein Albumin Globulin Albumin/Globulin Ratio Blood Type Antibody Screen Crossmatch See Detail 09/17/19 09/17/19 09/17/19 04:10 04:10 04:10 WBC RBC Hgb Hct MCV MCH MCHC RDW Plt Count Neut % (Auto) Lymph % (Auto) [place] % (Auto) Eos % (Auto) Baso % (Auto) Lymph # (Auto) [place] # (Auto) Baso # (Auto) Total Counted Seg Neutrophils % Band Neutrophils % Lymphocytes % (Manual) Monocytes % (Manual) Eosinophils % (Manual) Metamyelocytes % Neutrophils # (Manual) RBC Morphology Polychromasia Anisocytosis PT 18.4 H D INR 1.6 H Sodium 129 L Potassium 4.0 Chloride 94 L Carbon Dioxide 34 H BUN 13 Creatinine 0.60 Estimated GFR > 60.0 BUN/Creatinine Ratio 21.7 Glucose 95 Calcium 7.7 L Iron TIBC % Saturation Transferrin Total Bilirubin Conjugated Bilirubin Unconjugated Bilirubin AST ALT Alkaline Phosphatase Total Protein Albumin Globulin Albumin/Globulin Ratio Blood Type A Positive Antibody Screen Negative Crossmatch See Detail 09/17/19 04:10 WBC RBC Hgb Hct MCV MCH MCHC RDW Plt Count Neut % (Auto) Lymph % (Auto) [place] % (Auto) Eos % (Auto) Baso % (Auto) Lymph # (Auto) [place] # (Auto) Baso # (Auto) Total Counted Seg Neutrophils % Band Neutrophils % Lymphocytes % (Manual) Monocytes % (Manual) Eosinophils % (Manual) Metamyelocytes % Neutrophils # (Manual) RBC Morphology Polychromasia Anisocytosis PT INR Sodium Potassium Chloride Carbon Dioxide BUN Creatinine Estimated GFR BUN/Creatinine Ratio Glucose Calcium Iron TIBC % Saturation Transferrin Total Bilirubin 1.6 H Conjugated Bilirubin 0.0 Unconjugated Bilirubin 1.6 H AST 105 H ALT 73 H Alkaline Phosphatase 57 Total Protein 5.3 L Albumin 2.5 L Globulin 2.8 Albumin/Globulin Ratio 0.9 L Blood Type Antibody Screen Crossmatch Assessment & Plan Post-op Postoperative Procedures: Procedures Operation Date: 09/10/19 07:45 Actual Procedures Side Surgeon p Total Hip Arthroplasty Right Rod Randhawa MD Postoperative plan narrative: Continue pressure dressing changes as needed. Continue bed rest with bathroom privileges, keep off of right hip, hold PT Appreciate hospitalist recommendations and care Time Spent With Patient Time with patient: less than 15 minutes
[2019-09-17] MEDS: BACLOFEN 10 MG TABLET PO ×3 (08:36→23:57)
[2019-09-17] MEDS: TRAMADOL 50 MG TABLET 100 MG PO (08:37)
--- NOTE | 2019-09-17 08:50 | PT-IP ANOTE ---
New order to hold physical and occupational therapy. Pt on bedrest due to medical issues. Will discharge Physical therapy order. Please write new order to resume therapy when she is medically appropriate.
--- NOTE | 2019-09-17 08:57 | ED.CONSULT ---
ED Provider Consult/Code Note General Date Patient Seen: 09/14/19 Time Patient Seen: 05:00 Reason for Admission: 46372 Right Total Hip Arthroplasty Events leading to Consult/Code: Patient had been in a persistent rapid Afib for many hours despite maximal medical therapy and consultation with [place] [facility]ology patient continues to have arrhythmia and is developing troponin leak and persistent BP in the 90s. I consulted with cardio myself and we share opinion that she will need cardioversion and that she is safe and appropriate for this procedure. Given her status as postoperative patient's I consulted with Anesthesia for help with a procedural sedation portion of the procedure so I could safely manage the cardioversion. Patient and family were consented and had questions answered to their apparent satisfaction. There were all completely on board with the plan and demonstrated their understanding and support of the plan. Cardiac Rhythm: rapid atrial fib Respiratory Auscultation: crackles Care Provided Description of care provided: Electrical Cardioversion: A time-out was completed verifying correct patient, procedure Informed consent was obtained. The patient was judged to be a satisfactory for the procedure. An intravenous access was established. Monitoring equipment was set-up. The resuscitative cart was nearby. Anesthesia: The patient was given an intravenous dose of [see anesthesia note] After satisfactory anesthesia was achieved, the procedure was performed. The paddles were placed in the standard position. Synchronized, direct current electrical cardioversion was performed with [150 and then 200x1 joules]. The patient tolerated the procedure well. There were no complications. Post Procedure: Successful cardioversion [was achieved.] Post procedure cardiac monitoring demonstrated [NSR].
[2019-09-17] MEDS: SODIUM CHLORIDE 0.9% FLUSH 10 ML IV ×2 (09:00→20:51)
--- NOTE | 2019-09-17 09:11 | OT.IPNOTE ---
Pt now bedrest due to medical issues, therefore discharge OT orders at this time.
--- NOTE | 2019-09-17 14:10 | PC.NURSE ---
Addendum entered by Joe Marie R.N. 09/17/19 14:49: MAYTE VALDIVIA unable to initiate regular PIV access under US. Placed midline instead. Pt tolerated well. IV Iron infusing. Original Note: LAC PIV flushing slowly, quite positional. Called to MAYTE VALDIVIA to place PIV to transfuse blood and venofer.
[2019-09-17] MEDS: IRON SUCROSE 200 MG in SODIUM CHLORIDE 0.9% 100 ML 220 ML IV (14:25)
[2019-09-17] MEDS: TRAMADOL 50 MG TABLET PO ×2 (15:43→22:30)
[2019-09-17] MEDS: WARFARIN 2 MG TABLET PO (16:55)
--- NOTE | 2019-09-17 18:38 | P.PN_ITS ---
Subjective Subjective Date Patient Seen: 09/17/19 Interval history: Glenys Munoz is a 79-year-old female with a past medical history significant for coronary artery disease status post CABG x1 vessel, cardiomyopathy, left bundle branch block, aortic stenosis status post mechanical aortic valve on warfarin, hypertension, hyperlipidemia, hypothyroidism, osteoarthritis, osteoporosis, restless leg syndrome, and morbid obesity who presented for elective right total hip arthroplasty. Medicine team has been consulted to manage patient's atrial fibrillation with RVR. The patient is resting in bedside chair and appears comfortable. Her surgical site continues to ooze but seems to be slowing down and resolving. Orthopedic surgery has placed the patient on strict bed rest in hopes that this will aid in stopping her bleeding. The patient's INR is now subtherapeutic at 1.6 and plan to restart warfarin at low-dose and try to maintain INR on the low side of goal at 2.0. Patient's hemoglobin appears to be stable at 7.7 but plan to give 1 unit PRBC for due to cardiac disease and to improve hemodynamics as patient continues to be slightly tachycardic maintaining normal sinus rhythm but with frequent ectopy inform of PVCs and low normal blood pressure. Also repleting patient's iron stores with Venofer today and ferrous gluconate starting tomorrow. Continue to implement bowel regimen to avoid constipation with narcotics and now iron supplementation. The patient is eager to continue rehabilitation but is mildly discouraged due to recovery course. She has no significant complaints and denies headache, chest pain, shortness of breath, abdominal pain, nausea, vomiting, fever, chills, dysuria, diarrhea or constipation. She is voiding via Hamilton catheter and eliminating without difficulty. Exam Vital Signs (past 8 hours): - 09/17/19 13:45 09/17/19 15:39 09/17/19 16:40 Temperature 98.1 F 98.8 F 98.1 F Pulse Rate 101 H 99 H 104 H Respiratory Rate 19 18 Blood Pressure 108/59 L 115/56 L 108/56 L Pulse Oximetry 96 95 09/17/19 17:01 Temperature 98.1 F Pulse Rate 101 H Respiratory Rate 17 Blood Pressure 107/58 L Pulse Oximetry Oxygen Delivery Method Room Air Oxygen Flow Rate 0 Narrative Exam Narrative: General: Elderly morbidly obese female lying in bed and in no acute distress, well-developed, appropriately interactive. HEENT: Normocephalic, atraumatic. External ears without defect. Pupils equal, round, and reactive to light. Anicteric sclera, moist conjunctivae and no lid lag. Oropharynx free of erythema and cobble stoning with moist mucosa. Neck: Supple with full range of motion. No jugular venous distension. No lymphadenopathy or thyromegaly. Cardiovascular: Regular rate and rhythm with ejection murmur. No rubs or gallop s appreciated. Pulmonary: Clear to auscultation bilaterally without crackles, wheezes, or rhonchi. Normal respiratory effort with no use of accessory muscles. Abdomen: Soft, obese, bowel sounds present, nontender, nondistended. No hepatosplenomegaly or masses appreciated. Extremities: No clubbing or cyanosis. Bilateral lower extremity lipedema with bipedal pitting edema. Right hip with bandage in place C/D/I with mild surrounding edema and warmth compared to left hip. Skin: Normal temperature, turgor, and texture; no rash, ulcers, or subcutaneous nodules appreciated. Neurological: Cranial nerves grossly intact. Psychiatric: Mildly anxious mood and normal affect. Alert and oriented to pe rson, place, and time. Objective Labs Result Diagrams: 09/17/19 04:10 09/17/19 04:10 Labs: Laboratory Results - last 24 hr 09/12/19 09/17/19 09/17/19 23:45 04:10 04:10 WBC 10.7 RBC 2.34 L Hgb 7.7 L Hct 22.0 L MCV 93.9 MCH 32.9 MCHC 35.1 RDW 14.7 Plt Count 278 Neut % (Auto) Not Reportable Lymph % (Auto) Not Reportable [place] % (Auto) Not Reportable Eos % (Auto) Not Reportable Baso % (Auto) Not Reportable Lymph # (Auto) Not Reportable [place] # (Auto) Not Reportable Baso # (Auto) Not Reportable Total Counted 100 Seg Neutrophils % 77.0 H Band Neutrophils % 1.0 L Lymphocytes % (Manual) 12.0 L Monocytes % (Manual) 3.0 Eosinophils % (Manual) 5.0 H Metamyelocytes % 2.0 H Neutrophils # (Manual) 8346 H RBC Morphology See below Polychromasia 2+ H Anisocytosis 3+ H PT INR Sodium 129 L Potassium 4.0 Chloride 94 L Carbon Dioxide 34 H BUN 13 Creatinine 0.60 Estimated GFR > 60.0 BUN/Creatinine Ratio 21.7 Glucose 95 Calcium 7.7 L Total Bilirubin Conjugated Bilirubin Unconjugated Bilirubin AST ALT Alkaline Phosphatase Total Protein Albumin Globulin Albumin/Globulin Ratio Blood Type Antibody Screen Crossmatch See Detail 09/17/19 09/17/19 09/17/19 04:10 04:10 04:10 WBC RBC Hgb Hct MCV MCH MCHC RDW Plt Count Neut % (Auto) Lymph % (Auto) [place] % (Auto) Eos % (Auto) Baso % (Auto) Lymph # (Auto) [place] # (Auto) Baso # (Auto) Total Counted Seg Neutrophils % Band Neutrophils % Lymphocytes % (Manual) Monocytes % (Manual) Eosinophils % (Manual) Metamyelocytes % Neutrophils # (Manual) RBC Morphology Polychromasia Anisocytosis PT 18.4 H D INR 1.6 H Sodium Potassium Chloride Carbon Dioxide BUN Creatinine Estimated GFR BUN/Creatinine Ratio Glucose Calcium Total Bilirubin 1.6 H Conjugated Bilirubin 0.0 Unconjugated Bilirubin 1.6 H AST 105 H ALT 73 H Alkaline Phosphatase 57 Total Protein 5.3 L Albumin 2.5 L Globulin 2.8 Albumin/Globulin Ratio 0.9 L Blood Type A Positive Antibody Screen Negative Crossmatch See Detail Assessment & Plan Assessment & Plan narrative: Glenys Munoz is a 79-year-old female with a past medical history significant for coronary artery disease status post CABG x1 vessel, cardiomyopathy, left bundle branch block, aortic stenosis status post mechanical aortic valve on warfarin, hypertension, hyperlipidemia, hypothyroidism, osteoarthritis, osteoporosis, restless leg syndrome, and morbid obesity who presented for elective right total hip arthroplasty. Medicine team has been consulted to manage patient's atrial fibrillation with RVR. 1. Acute blood loss anemia, secondary to anticoagulation, not present on admission. Active. -Initial hemoglobin 11.8. Patient continues to ooze from surgical site but blood counts seem to be stabilized with hemoglobin now 7.7 and very little oozing. Patient has received a total of 4 units PRBC. Plan to give additional 1 unit PRBC to help improve low normal BP and sinus tachycardia. -Continue to monitor H&H closely. Transfusion goal hemoglobin < 8.0. -INR is now subtherapeutic at 1.6. Plan to give warfarin 2 mg today at 1700 and then warfarin 1 mg daily at 1700 thereafter. Continue to monitor INR daily. Discontinued Lovenox and held aspirin. -Iron panel demonstrated iron deficiency anemia. Received Venofer 200 mg x 1 and will start ferrous gluconate 324 mg daily starting tomorrow. 2. Acute postoperative hypotension in setting of chronic hypertension, not present on admission. Resolved. -Patient was hypotensive due to acute blood loss as below and decreased PO intake. Her blood pressure improved with IV fluid and PRBCs administration. -Discontinued IV fluids as patient is adequately hydrated. Patient has received a total of 4 units PRBC. Plan to give additional 1 unit PRBC to help improve low normal BP and sinus tachycardia. -Held antihypertensives including carvedilol 25 mg twice daily and lisinopril 5 mg daily at bedtime. 3. Acute postoperative atrial fibrillation with RVR, not present on admission. Resolved. -New onset (appears to be less than 48 hours), no prior known history, suspected to be a postoperative complication. -TSH within normal limits. -Electrolytes within normal limits. Continue to monitor electrolytes closely and replete as necessary. Goal K > 4.0 and Mg > 2.0. -Received amiodarone 150 mg bolus and 24 hour gtt per protocol. Per patient's cardiology group at [facility] held amiodarone as LFTs are elevating and plan to restart at lower dose once LFTs have improved. -Received digoxin 250 mcg IV Q4H x 2 doses then discontinued as patient was cardioverted to sinus rhythm. -Patient had successful cardioversion x 2 to sinus rhythm. -Continue to monitor closely on telemetry. Patient remains in sinus rhythm with ectopy in form of frequent PVCs. 4. Likely acute possibly on chronic mild transaminitis, unclear if present on admission. Active. -Likely medication induced and related to amiodarone and acetaminophen versus fatty liver disease. -Per patient's cardiology group at [facility] held amiodarone as LFTs are elevating. Also held acetaminophen. -Initial LFTs: Total bilirubin 0.7, AST 48, ALT 27, alk-phos 34. LFTs trending up and hopefully peaking. Continue monitoring LFTs closely. -liver ultrasound demonstrated increased hepatic echogenicity most consistent with hepatic steatosis and gallbladder is mildly prominent with gallstones pres ent but no gallbladder wall thickening, sonographic Chatman's sign, or pericholecystic fluid to suggest acute cholecystitis. 5. DJD status post right total arthroplasty, acute on chronic, present on a dmission. Improving. -Status post right total hip arthroplasty on 09/12. -Continue postoperative and pain management per Orthopedic surgery. -Implemented bowel regimen as patient has not had BM since admission. Plan to give suppository and/or mineral oil enema today. 6. Type 2 ND, not present on admission. Resolved. -Echocardiogram was technically difficult and demonstrated aortic valve is not well visualized, valve type is not known, transvalvular velocities and mean gradient are similar to the reports from the outside hospital, there is moderate to severe mitral annular calcification, more prominent in the posterior annulus with moderate mitral stenosis. Mean gradient is 6 mmHg at heart rate of 84 bpm, left atrium is severely dilated, right ventricle is at the upper limits of normal in size; RV systolic function is normal, RVSP 43 mmHg based on an estimated right atrial pressure of 3 mm Hg. -As anticipated patient had troponin leak due to demand ischemia in setting of atrial fibrillation with RVR and later had a cardioversion x2. Patient denies chest pain or ACS symptoms. No need to further trend troponin. 7. CAD, chronic, present on admission. Stable. -Patient has history of CABG x1 vessel. -Patient endorse lightheadedness and dizziness with diaphoresis due to arrhythmi a which has resolved with cardioversion. Denies chest pain or ACS symptoms. -Held aspirin, carvedilol, and lisinopril due to hypotension related to acute blood loss as above. Continue rosuvastatin 40 mg at bedtime. 8. History of mechanical aortic valve, chronic, present admission. Stable. -Held warfarin as INR is supratherapeutic at 3.2. Discontinued Lovenox and held aspirin. Per patient's cardiology group at [facility], held amiodarone as LFTs are elevating and plan to restart at lower dose once LFTs have improved and held warfarin until bleeding stops and INR drifts down to 2.0. -Continue to monitor INR daily. Goal INR 2.0-3.0. 9. Hyperlipidemia, chronic, present on admission. Stable. -Continue rosuvastatin 40 mg daily at bedtime and ezetimibe 10 mg daily at bedtime. 10. Hypothyroidism, chronic condition, present on admission, stable -TSH normal at 3.93. Continue levothyroxine 125 mcg daily. Full code. No formal health directive per patient, however patient designates her daughters Sharri and Angela, as surrogate decision makers. VTE prophylaxis: Warfarin and SCDs. Thank you for this most interesting consult. Medicine team will continue to follow along with you.
[2019-09-17] MEDS: ROSUVASTATIN 10 MG TABLET 40 MG PO (20:50)
[2019-09-17] MEDS: EZETIMIBE 10 MG TABLET PO (20:50)
[2019-09-17] MEDS: PANTOPRAZOLE 40 MG TABLET PO (20:50)
--- NOTE | 2019-09-17 22:46 | PC.NURSE ---
2230 - Pt on bedrest this shift. Total care to turn. Brief check, one inc of stool this shift. Currently it appears that urine is leaking around the catheter, catheter does contain urine. Val-care and brief changed. Barrier cream. Drsg to right hip CDI. RLE elevated per order. PRBC infusing x1 this shift. Pt alert and oriented. VSS. Supportive daughter at bedside. Call light in reach. Bed alarm on.
[2019-09-18] VITALS (9 sets, daily range): BP systolic 100–121; BP diastolic 55–70; PULSE 90–129; RESP 16–19; TEMP 36.3–37.4; O2SAT 94–97
--- NOTE | 2019-09-18 00:28 | PC.NURSE ---
Short Story Writer Note: 0000: Awake, resting in bed. IVs in place in lt upper arm and lt AC. SCDs on. Pt denies pain at this time but asking for her Baclofen. Hamilton cath care given, slick care given. Turned and repositioned slightly to lt. HOB elevated per pt request. Dressing to rt hip cdi. Pt declines CPAP, placed on O2 2l/NC.
[2019-09-18 05:04] LABS: INR 1.2 (0.9-1.3); Prothrombin Time 14.2 SECONDS (10.1-12.7)
[2019-09-18 05:09] LABS: Alanine Aminotransferase 125 IU/L (<35); Albumin 2.6 g/dL (3.5-5.0); Albumin Globulin Ratio 0.9 (1.0-2.8); Alkaline Phosphatase 91 U/L (38-126); Aspartate Aminotransferase 176 IU/L (14-36); Blood Urea Nitrogen 15 mg/dL (7-17); Calcium 7.7 mg/dL (8.4-10.2); Carbon Dioxide 33 mmol/L (22-32); Chloride 94 mmol/L (98-107); Estimated Glomerular Filt Rate > 60.0 mL/min (>60); Globulin 2.9 g/dL (1.7-4.1); Glucose 98 mg/dL (80-110); HEMOLYSIS < 15 (0-50); Hemoglobin 8.8 g/dL (12.0-16.0); Magnesium 2.3 mg/dL (1.6-2.3); Mean Corpuscular HGB Conc 33.9 % (30-36); Mean Corpuscular Hemoglobin 32.2 PG (26-34); Mean Corpuscular Volume 95.2 fL (80-100); Platelet Count 358 X10^3/uL (150-400); Potassium 3.9 mmol/L (3.4-5.1); Red Blood Cell Count 2.74 X10^6/uL (4.0-5.2); Red Cell Distribution Width 14.6 % (11.6-14.8); Sodium 128 mmol/L (137-145); Total Protein 5.5 g/dL (6.3-8.2); White Blood Cell Count 11.4 X10^3/uL (4.5-11.0)
[2019-09-18 05:14] LABS: Add Manual Diff / Slide Review YES
[2019-09-18 06:11] LABS: Troponin I 0.058 ng/mL (0.01-0.034)
[2019-09-18] MEDS: LEVOTHYROXINE 125 MCG TABLET PO (06:44)
[2019-09-18 07:17] LABS: Neutrophils Absolute Manual 7524 /uL (3000-5900); Nucleated Red Blood Cells 3 #/Diff; RBC Morphology Normal Morphology; Total Cells Counted 100
--- NOTE | 2019-09-18 07:39 | P.PN_ITS ---
Subjective Subjective Date Patient Seen: 09/18/19 Time Patient Seen: 07:39 Interval history: INR 1.2, H/H 8.8/ No acute events overnight, no dressing changes. Patient states she is feeling well. Complains of pain in right hip. Denies numbness, tingling. Denies fever, chills, chest pain, shortness of breath, nausea, dizziness, pain in calves. Exam Vital Signs (past 8 hours): - 09/18/19 00:22 09/18/19 05:00 Temperature 97.3 F L 98.0 F Pulse Rate 100 H 94 H Respiratory Rate 17 16 Blood Pressure 103/57 L 100/56 L Pulse Oximetry 97 96 Oxygen Delivery Method Room Air Oxygen Flow Rate 0 Narrative Exam Narrative: 79 yo obese F laying comfortably in bed, in no apparent distress. A&Ox3. Dressing CDI, rose catheter in place. Sensory function grossly intact to light touch in LE BL. Dorsalis pedis 2+ BL. Able to actively dorsiflex/plantar flex. Calves warm, soft, compressible, non tender to palpation. Lower extremity edema 3+ BL. Objective Labs Result Diagrams: 09/18/19 04:30 09/18/19 04:30 Labs: Laboratory Results - last 24 hr 09/17/19 09/17/19 09/18/19 04:10 04:10 04:30 WBC 11.4 H RBC 2.74 L Hgb 8.8 L Hct 26.0 L MCV 95.2 MCH 32.2 MCHC 33.9 RDW 14.6 Plt Count 358 Neut % (Auto) Administrative Resources Associate Lymph % (Auto) Administrative Resources Associate [place] % (Auto) Administrative Resources Associate Eos % (Auto) Administrative Resources Associate Baso % (Auto) Administrative Resources Associate Neut # (Auto) Administrative Resources Associate Lymph # (Auto) Administrative Resources Associate [place] # (Auto) Administrative Resources Associate Eos # (Auto) Administrative Resources Associate Baso # (Auto) Administrative Resources Associate Total Counted 100 Seg Neutrophils % 66.0 Lymphocytes % (Manual) 22.0 L Atypical Lymphs % 3.0 H Monocytes % (Manual) 6.0 Eosinophils % (Manual) 3.0 Neutrophils # (Manual) 7524 H Nucleated RBCs 3 H RBC Morphology Normal morphology PT INR Sodium Potassium Chloride Carbon Dioxide BUN Creatinine Estimated GFR BUN/Creatinine Ratio Glucose Calcium Magnesium Total Bilirubin 1.6 H Conjugated Bilirubin 0.0 Unconjugated Bilirubin 1.6 H AST 105 H ALT 73 H Alkaline Phosphatase 57 Troponin I Total Protein 5.3 L Albumin 2.5 L Globulin 2.8 Albumin/Globulin Ratio 0.9 L Blood Type A Positive Antibody Screen Negative Crossmatch See Detail 09/18/19 09/18/19 09/18/19 04:30 04:30 04:30 WBC RBC Hgb Hct MCV MCH MCHC RDW Plt Count Neut % (Auto) Lymph % (Auto) [place] % (Auto) Eos % (Auto) Baso % (Auto) Neut # (Auto) Lymph # (Auto) [place] # (Auto) Eos # (Auto) Baso # (Auto) Total Counted Seg Neutrophils % Lymphocytes % (Manual) Atypical Lymphs % Monocytes % (Manual) Eosinophils % (Manual) Neutrophils # (Manual) Nucleated RBCs RBC Morphology PT 14.2 H INR 1.2 Sodium 128 L Potassium 3.9 Chloride 94 L Carbon Dioxide 33 H BUN 15 Creatinine 0.50 L Estimated GFR > 60.0 BUN/Creatinine Ratio 30.0 H Glucose 98 Calcium 7.7 L Magnesium 2.3 Total Bilirubin 2.0 H Conjugated Bilirubin Unconjugated Bilirubin AST 176 H ALT 125 H Alkaline Phosphatase 91 Troponin I 0.058 H Total Protein 5.5 L Albumin 2.6 L Globulin 2.9 Albumin/Globulin Ratio 0.9 L Blood Type Antibody Screen Crossmatch Assessment & Plan Post-op Postoperative Procedures: Procedures Operation Date: 09/10/19 07:45 Actual Procedures Side Surgeon p Total Hip Arthroplasty Right Rod Randhawa MD Postoperative plan narrative: Continue pressure dressing changes as needed. Continue bed rest with bathroom privileges, keep off of right hip, hold PT Appreciate hospitalist recommendations and care - Per hospitalist: INR is now subtherapeutic at 1.6. Plan to give warfarin 2 mg today at 1700 and then warfarin 1 mg daily at 1700 thereafter. Continue to monitor INR daily. Discontinued Lovenox and held aspirin.
[2019-09-18] MEDS: BACLOFEN 10 MG TABLET PO ×2 (08:30→15:38)
[2019-09-18] MEDS: TRAMADOL 50 MG TABLET PO ×2 (08:30→15:37)
[2019-09-18] MEDS: polyethylene glycoL 3350 17 GM POWD.PACK PO (08:30)
[2019-09-18] MEDS: DOCUSATE 100 MG CAPSULE PO (08:30)
[2019-09-18] MEDS: FERROUS GLUCONATE 324 MG TABLET PO (09:27)
--- NOTE | 2019-09-18 15:07 | PC.NURSE ---
pt remained bedrest status this shift per ORTHO PA- rose remains -appetite fair and denies nauea - did note she was in afib rvr after bathing and turning AWARE
[2019-09-18] MEDS: carvediloL 12.5 MG TABLET PO ×2 (15:38→21:10)
--- NOTE | 2019-09-18 16:06 | DIET.PN ---
Dietary Progress Note Assessment: 79y F 8d s/p R total hip with pmx of CAD, HTN, HLD, OA referred to nutrition for help with diet to support healthy and weight loss. Pt lives with , daughter, and son-in-law. Per pt and her daughter, they all have health issues and could stand to get healthier. Pt's daughter who she doesn't live with is adamant pt start ketogenic diet to lose weigh as she misinterpreted Dr. Nassar advice on carb restricted diet reccs. There is some tension between the two sides. Usual intake B: cereal c 2% milk Sn: orange L: sourdough bread c cream cheese or sandwich spread Sn: apple or orange D: usually pasta based dish (sausage, cream sauce, sands, hamburger) Sometimes wakes at night and eats an orange Drinks water and diet squirt soda Pt has had reduced appetite lately. Usually lets the men decide on dinner menu which is high in refined carbs and fatty meats and low in lean meats and vegetables. As pt is 79y and hx of heart disease, diet reccs focused on balanced eating using plate method. This RD spent extensive time working c pt and her daughter on this with pt leading conversation on changes she feels she can successfully make: Pt willing to sub snack fruit for a yogurt or peanut butter c celery. Pt's dinners if pasta based will be half portions using lean meats instead of fatty, with the remaining volume vegetables (raw or cooked). Pt's lunches will be lean protein on salad c option of small slice toast. HT: 162.5cm WT: 120kg BMI: 45.4 MNA: 10 Guille: 16 Nutrition Diagnosis: obesity r/t undesirable food choices aeb pt food recall showing diet high in refined carbs (bread, cereal, crackers, pasta) and low in protein, vegetables, BMI 45.4, pt inpatient 8d s/p R total hip. Interventions: 1. Aim for 1800kcal/d in 3 meals and 2 snacks 2. Gave handout on healthy meal and snack ideas 3. Use plate method to ensure proper proportions of each food group. 4. Participate with PT to ensure adequate mobility and to hasten weight loss/avoid further wt gain. Diet Order: General EER: 1700kcal (-300kcal wt loss), 105g PRO (0.9g/kg), 3L fluids
--- NOTE | 2019-09-18 16:55 | PM.PN.1 ---
Subjective Subjective Date Patient Seen: 09/18/19 Time Patient Seen: 08:45 Interval history: Glenys Munoz is a 79-year-old female with a past medical history significant for coronary artery disease status post CABG x1 vessel, cardiomyopathy, left bundle branch block, aortic stenosis status post mechanical aortic valve on warfarin, hypertension, hyperlipidemia, hypothyroidism, osteoarthritis, osteoporosis, restless leg syndrome, and morbid obesity who presented for elective right total hip arthroplasty. Medicine team has been consulted to manage patient's atrial fibrillation with RVR. The patient is resting in bedside chair and appears comfortable. Her surgical site continues to ooze but seems to be slowing down and resolving. Her dressing was changed last yesterday. At today's dressing change she still had some oozing. Orthopedic surgery has placed the patient on strict bed rest in hopes that this will aid in stopping her bleeding. The patient's INR is now subtherapeutic at 1.2 and she remains on coumadin. She was given 2 mg yesterday and will resume today. She went back into afib today. Spoke with orthopedic surgery and at this time they would like to avoid starting Lovenox if possible given persistent oozing. Patient was started on iron yesterday. The patient is eager to continue rehabilitation but is mildly discouraged due to recovery course. She has no significant complaints and denies headache, chest pain, shortness of breath, abdominal pain, nausea, vomiting, fever, chills, dysuria, diarrhea or constipation. She is voiding via Hamilton catheter and eliminating without difficulty although she does complain of some suprapubic fullness at times. Exam Vital Signs (past 8 hours): - 09/18/19 09:00 09/18/19 13:00 09/18/19 14:58 Temperature 98.4 F 98.0 F Pulse Rate 95 H 96 H 129 H Respiratory Rate 19 18 16 Blood Pressure 101/57 L 104/55 L 108/68 Pulse Oximetry 94 96 94 09/18/19 15:38 Temperature Pulse Rate 122 H Respiratory Rate Blood Pressure 121/70 Pulse Oximetry Oxygen Delivery Method Room Air Oxygen Flow Rate 0 Narrative Exam Narrative: General: Elderly morbidly obese female lying in bed and in no acute distress, well-developed, appropriately interactive. HEENT: Normocephalic, atraumatic. External ears without defect. Pupils equal, round, and reactive to light. Anicteric sclera, moist conjunctivae and no lid lag. Oropharynx free of erythema and cobble stoning with moist mucosa. Neck: Supple with full range of motion. No jugular venous distension. No lymphadenopathy or thyromegaly. Cardiovascular: Regular rate and rhythm with ejection murmur. No rubs or gallops appreciated. Pulmonary: Clear to auscultation bilaterally without crackles, wheezes, or rhonchi. Normal respiratory effort with no use of accessory muscles. Abdomen: Soft, obese, bowel sounds present, nontender, nondistended. No hepatosplenomegaly or masses appreciated. Extremities: No clubbing or cyanosis. Bilateral lower extremity lipedema with bipedal pitting edema. Right hip with bandage in place C/D/I with mild surrounding edema and warmth compared to left hip. Skin: Normal temperature, turgor, and texture; no rash, ulcers, or subcutaneous nodules appreciated. Neurological: Cranial nerves grossly intact. Psychiatric: Mildly anxious mood and normal affect. Alert and oriented to person, place, and time. Objective Labs Result Diagrams: 09/18/19 04:30 09/18/19 04:30 Labs: Laboratory Results - last 24 hr 09/17/19 09/18/19 09/18/19 04:10 04:30 04:30 WBC 11.4 H RBC 2.74 L Hgb 8.8 L Hct 26.0 L MCV 95.2 MCH 32.2 MCHC 33.9 RDW 14.6 Plt Count 358 Neut % (Auto) Pearl Stringer Lymph % (Auto) Pearl Stringer Bollinger % (Auto) Pearl Stringer Eos % (Auto) Pearl Stringer Baso % (Auto) Pearl Stringer Neut # (Auto) Pearl Stringer Lymph # (Auto) Pearl Stringer Bollinger # (Auto) Pearl Stringer Eos # (Auto) Pearl Stringer Baso # (Auto) Pearl Stringer Total Counted 100 Seg Neutrophils % 66.0 Lymphocytes % (Manual) 22.0 L Atypical Lymphs % 3.0 H Monocytes % (Manual) 6.0 Eosinophils % (Manual) 3.0 Neutrophils # (Manual) 7524 H Nucleated RBCs 3 H RBC Morphology Normal morphology PT 14.2 H INR 1.2 Sodium Potassium Chloride Carbon Dioxide BUN Creatinine Estimated GFR BUN/Creatinine Ratio Glucose Calcium Magnesium Total Bilirubin AST ALT Alkaline Phosphatase Troponin I Total Protein Albumin Globulin Albumin/Globulin Ratio Blood Type A Positive Antibody Screen Negative Crossmatch See Detail 09/18/19 09/18/19 04:30 04:30 WBC RBC Hgb Hct MCV MCH MCHC RDW Plt Count Neut % (Auto) Lymph % (Auto) Bollinger % (Auto) Eos % (Auto) Baso % (Auto) Neut # (Auto) Lymph # (Auto) Bollinger # (Auto) Eos # (Auto) Baso # (Auto) Total Counted Seg Neutrophils % Lymphocytes % (Manual) Atypical Lymphs % Monocytes % (Manual) Eosinophils % (Manual) Neutrophils # (Manual) Nucleated RBCs RBC Morphology PT INR Sodium 128 L Potassium 3.9 Chloride 94 L Carbon Dioxide 33 H BUN 15 Creatinine 0.50 L Estimated GFR > 60.0 BUN/Creatinine Ratio 30.0 H Glucose 98 Calcium 7.7 L Magnesium 2.3 Total Bilirubin 2.0 H AST 176 H ALT 125 H Alkaline Phosphatase 91 Troponin I 0.058 H Total Protein 5.5 L Albumin 2.6 L Globulin 2.9 Albumin/Globulin Ratio 0.9 L Blood Type Antibody Screen Crossmatch Assessment & Plan Assessment & Plan narrative: Glenys Munoz is a 79-year-old female with a past medical history significant for coronary artery disease status post CABG x1 vessel, cardiomyopathy, left bundle branch block, aortic stenosis status post mechanical aortic valve on warfarin, hypertension, hyperlipidemia, hypothyroidism, osteoarthritis, osteoporosis, restless leg syndrome, and morbid obesity who presented for elective right total hip arthroplasty. Medicine team has been consulted to manage patient's atrial fibrillation with RVR. 1. Acute blood loss anemia, secondary to anticoagulation, not present on admission. Active. -Initial hemoglobin 11.8. Patient continues to ooze from surgical site but blood counts seem to be stabilized with hemoglobin now 8.8 and slow oozing. Patient has received a total of 5 units PRBC. -Continue to monitor H&H closely. Transfusion goal hemoglobin < 8.0. -INR is now subtherapeutic at 1.2. Plan to continue warfarin 2 mg today at 1700. Continue to monitor INR daily. Discontinued Lovenox and held aspirin. Will re-discuss lovenox tomorrow with orthopedic surgery, they would like to continue to watch her wound at this time without Lovenox. -Iron panel demonstrated iron deficiency anemia. Received Venofer 200 mg x 1 and started ferrous gluconate 324 mg daily. 2. Acute postoperative hypotension in setting of chronic hypertension, not present on admission. Resolved. -Patient was hypotensive due to acute blood loss as below and decreased PO intake. Her blood pressure improved with IV fluid and PRBCs administration. -Discontinued IV fluids as patient is adequately hydrated. Patient has received a total of 4 units PRBC. Plan to give additional 1 unit PRBC to help improve low normal BP and sinus tachycardia. -Held antihypertensives including carvedilol 25 mg twice daily and lisinopril 5 mg daily at bedtime initially. For afib today will resume coreg today at 12.5 mg BID. 3. Acute postoperative atrial fibrillation with RVR, not present on admission. Active. -New onset (appears to be less than 48 hours), no prior known history, suspected to be a postoperative complication however now recurred today. -TSH within normal limits. -Electrolytes within normal limits. Continue to monitor electrolytes closely and replete as necessary. Goal K > 4.0 and Mg > 2.0. -echocardiogram revealed an EF of approx 55% with dilated LA. -Received amiodarone 150 mg bolus and 24 hour gtt per protocol. Per patient's cardiology group at [facility] held amiodarone as LFTs are elevating and plan to restart at lower dose once LFTs have improved, will re-discuss tomorrow. -Received digoxin 250 mcg IV Q4H x 2 doses then discontinued as patient was cardioverted to sinus rhythm. -Patient had successful cardioversion x 2 to sinus rhythm but has since recurred. -Continue to monitor closely on telemetry. Currently in afib and will resume her home coreg as noted above. 4. Likely acute possibly on chronic mild transaminitis, unclear if present on admission. Active. -Likely medication induced and related to amiodarone and acetaminophen versus fatty liver disease. -Per patient's cardiology group at [facility] held amiodarone as LFTs are elevating. Also held acetaminophen. -Initial LFTs: Total bilirubin 0.7, AST 48, ALT 27, alk-phos 34. LFTs trending up, unable to give additional amiodarone at this time. Continue monitoring LFTs closely. -liver ultrasound demonstrated increased hepatic echogenicity most consistent with hepatic steatosis and gallbladder is mildly prominent with gallstones present but no gallbladder wall thickening, sonographic Chatman's sign, or pericholecystic fluid to suggest acute cholecystitis. 5. DJD status post right total arthroplasty, acute on chronic, present on admission. Improving. -Status post right total hip arthroplasty on 09/12. -Continue postoperative and pain management per Orthopedic surgery. -Implemented bowel regimen as patient has not had BM since admission. Plan to give suppository and/or mineral oil enema today. 6. Type 2 AK, not present on admission. Resolved. -Echocardiogram was technically difficult and demonstrated aortic valve is not well visualized, valve type is not known, transvalvular velocities and mean gradient are similar to the reports from the outside hospital, there is moderate to severe mitral annular calcification, more prominent in the posterior annulus with moderate mitral stenosis. Mean gradient is 6 mmHg at heart rate of 84 bpm, left atrium is severely dilated, right ventricle is at the upper limits of normal in size; RV systolic function is normal, RVSP 43 mmHg based on an estimated right atrial pressure of 3 mm Hg. -As anticipated patient had troponin leak due to demand ischemia in setting of atrial fibrillation with RVR and later had a cardioversion x2. Patient denies chest pain or ACS symptoms. No need to further trend troponin. 7. CAD, chronic, present on admission. Stable. -Patient has history of CABG x1 vessel. -Patient endorse lightheadedness and dizziness with diaphoresis due to arrhythmia which has resolved with cardioversion. Denies chest pain or ACS symptoms. -Held aspirin, carvedilol, and lisinopril due to hypotension related to acute blood loss as above. Continue rosuvastatin 40 mg at bedtime. 8. History of mechanical aortic valve, chronic, present admission. Stable. -Held warfarin as INR is supratherapeutic at 3.2. Discontinued Lovenox and held aspirin. Per patient's cardiology group at [facility], held amiodarone as LFTs are elevating and plan to restart at lower dose once LFTs have improved and held warfarin until bleeding stops. INR now at 1.2 today and have resumed warfarin. Holding on Lovenox at this time given oozing from her RLE requiring transfusions. -Continue to monitor INR daily. Goal INR 2.0-3.0. 9. Hyperlipidemia, chronic, present on admission. Stable. -Continue rosuvastatin 40 mg daily at bedtime and ezetimibe 10 mg daily at bedtime. 10. Hypothyroidism, chronic condition, present on admission, stable -TSH normal at 3.93. Continue levothyroxine 125 mcg daily. Full code. No formal health directive per patient, however patient designates her daughters Sharri and Angela, as surrogate decision makers. VTE prophylaxis: Warfarin and SCDs. Medicine team will continue to follow.
--- NOTE | 2019-09-18 16:56 | PC.NURSE ---
Addendum entered by Neda Zepeda R.N. 09/18/19 21:43: 2115 - Pt requesting to return to back. Educated to skin integrity. Pt verbalized understanding. Able to take PO meds without difficulty. Agreeable to replace SCD's and wear C-pap this evening. Encouraged as much independent activity as possible. Pt making effort to move LE, however does require assistance with most all care. Rx provided for pain. Ice pack to right groin. Drsg CDI. Call light in reach. Original Note: [id number] - Drsg change to right hip with Ortho PA. No new oozing visualized. Pt tolerated well. Repositioned, and set up for evening meal. SCD's on. Daughter at bedside. Call light in reach.
[2019-09-18] MEDS: WARFARIN 2 MG TABLET PO (17:11)
[2019-09-18] MEDS: TRAMADOL 50 MG TABLET 100 MG PO (21:10)
[2019-09-18] MEDS: ROSUVASTATIN 10 MG TABLET 40 MG PO (21:10)
[2019-09-18] MEDS: PANTOPRAZOLE 40 MG TABLET PO (21:11)
[2019-09-18] MEDS: SODIUM CHLORIDE 0.9% FLUSH 10 ML IV (21:12)
[2019-09-18] MEDS: EZETIMIBE 10 MG TABLET PO (21:12)
[2019-09-19] VITALS (7 sets, daily range): BP systolic 90–113; BP diastolic 44–58; PULSE 80–106; RESP 16–20; TEMP 35.8–37.1; O2SAT 93–99
[2019-09-19] MEDS: BACLOFEN 10 MG TABLET PO ×2 (01:15→18:28)
[2019-09-19] MEDS: TRAMADOL 50 MG TABLET PO ×2 (04:11→17:02)
[2019-09-19 05:29] LABS: INR 1.3 (0.9-1.3); Prothrombin Time 14.3 SECONDS (10.1-12.7)
[2019-09-19 05:30] LABS: Add Manual Diff / Slide Review NO; Basophils Absolute Auto 100 /uL (0-100); Basophils Percent Auto 0.5 % (0-2); Eosinophils Absolute Auto 400 /uL (0-450); Eosinophils Percent Auto 3.4 % (2-4); Hematocrit 26.8 % (36-46); Hemoglobin 9.3 g/dL (12.0-16.0); Lymphocytes Absolute Auto 2100 /uL (1100-4500); Lymphocytes Percent Auto 16.8 % (25-40); Mean Corpuscular HGB Conc 34.7 % (30-36); Mean Corpuscular Hemoglobin 32.9 PG (26-34); Mean Corpuscular Volume 94.8 fL (80-100); Monocytes Absolute Auto 1100 /uL (0-900); Monocytes Percent Auto 8.9 % (3-14); Neutrophils Absolute Auto 8800 /uL (1500-7000); Neutrophils Percent Auto 70.4 % (50-75); Platelet Count 447 X10^3/uL (150-400); Red Blood Cell Count 2.82 X10^6/uL (4.0-5.2); Red Cell Distribution Width 14.9 % (11.6-14.8); White Blood Cell Count 12.5 X10^3/uL (4.5-11.0)
[2019-09-19 05:35] LABS: Alanine Aminotransferase 171 IU/L (<35); Albumin 2.7 g/dL (3.5-5.0); Albumin Globulin Ratio 0.9 (1.0-2.8); Alkaline Phosphatase 130 U/L (38-126); Aspartate Aminotransferase 216 IU/L (14-36); BUN Creatinine Ratio 26.7 (6-22); Bilirubin Total 2.2 mg/dL (0.2-1.3); Bilirubin Unconjugated 1.9 mg/dL (0.0-1.1); Blood Urea Nitrogen 16 mg/dL (7-17); Calcium 7.9 mg/dL (8.4-10.2); Carbon Dioxide 30 mmol/L (22-32); Chloride 95 mmol/L (98-107); Estimated Glomerular Filt Rate > 60.0 mL/min (>60); Glucose 106 mg/dL (80-110); HEMOLYSIS < 15 (0-50); Magnesium 2.3 mg/dL (1.6-2.3); Potassium 3.6 mmol/L (3.4-5.1); Sodium 130 mmol/L (137-145); Total Protein 5.7 g/dL (6.3-8.2)
[2019-09-19] MEDS: LEVOTHYROXINE 125 MCG TABLET PO (06:59)
[2019-09-19] MEDS: carvediloL 12.5 MG TABLET PO ×2 (09:19→21:05)
[2019-09-19] MEDS: SODIUM CHLORIDE 0.9% FLUSH 10 ML IV (09:24)
[2019-09-19] MEDS: FERROUS GLUCONATE 324 MG TABLET PO (09:30)
--- NOTE | 2019-09-19 14:04 | PC.NURSE ---
Addendum entered by Danielle Mckenzie R.N. 09/19/19 14:48: dressing changed and rose removed- as well as transferred to room 220 -DR. JAFFE AWARE AND ORTHO HAS NOT ROUNDED Original Note: pt reports pain well controlled with po baclofen and prn tramadol- remains complete bedrest until cleared by ortho - using cpap at [facility] with no o2 bleed in- will have sleep study as outpt- lungs dim but clear rose remains until bedrest orders cleared - dressing to right hip cdi- tolerating meals fair and family at bedside most of shift
--- NOTE | 2019-09-19 15:47 | P.PN_ITS ---
Subjective Subjective Date Patient Seen: 09/19/19 Time Patient Seen: 08:00 Interval history: Glenys Munoz is a 79-year-old female with a past medical history significant for coronary artery disease status post CABG x1 vessel, cardiomyopathy, left bundle branch block, aortic stenosis status post mechanical aortic valve on warfarin, hypertension, hyperlipidemia, hypothyroidism, osteoarthritis, osteoporosis, restless leg syndrome, and morbid obesity who presented for elective right total hip arthroplasty. Medicine team has been consulted to manage patient's atrial fibrillation with RVR which has since resolved. The patient is resting in bedside chair and appears comfortable. Orthopedic surgery has placed the patient on strict bed rest in hopes that this will aid in stopping her bleeding. The patient's INR is now subtherapeutic but rising slightly to 1.3 and she remains on coumadin. She was given 2 mg yesterday and will increase to 3 mg today. She went back into afib yesterday. Spoke with orthopedic surgery and at this time they would like to avoid starting Lovenox if possible given persistent oozing. Patient was started on iron. Her Hg continues to rise today. She has no significant complaints and denies headache, chest pain, shortness of breath, abdominal pain, nausea, vomiting, fever, chills, dysuria, diarrhea or constipation. She is voiding via Hamilton catheter, which can be removed once off of strict bed rest. Exam Vital Signs (past 8 hours): - 09/19/19 09:00 09/19/19 12:53 09/19/19 15:36 Temperature 97.7 F 97.2 F L 98.4 F Pulse Rate 94 H 86 89 Respiratory Rate 16 20 18 Blood Pressure 102/58 L 95/55 L 95/45 L Pulse Oximetry 97 94 96 Oxygen Delivery Method Room Air,CPAP Oxygen Flow Rate 0 Narrative Exam Narrative: General: Elderly morbidly obese female lying in bed and in no acute distress, well-developed, appropriately interactive. HEENT: Normocephalic, atraumatic. External ears without defect. Pupils equal, round, and reactive to light. Anicteric sclera, moist conjunctivae and no lid lag. Oropharynx free of erythema and cobble stoning with moist mucosa. Neck: Supple with full range of motion. No jugular venous distension. No l ymphadenopathy or thyromegaly. Cardiovascular: Regular rate and rhythm with ejection murmur. No rubs or gallops appreciated. Pulmonary: Clear to auscultation bilaterally without crackles, wheezes, or rhonchi. Normal respiratory effort with no use of accessory muscles. Abdomen: Soft, obese, bowel sounds present, nontender, nondistended. No hepatosplenomegaly or masses appreciated. Extremities: No clubbing or cyanosis. Bilateral lower extremity lipedema with bipedal pitting edema. Right hip with bandage in place C/D/I with mild surrounding edema and warmth compared to left hip. Skin: Normal temperature, turgor, and texture; no rash, ulcers, or subcutaneous nodules appreciated. Neurological: Cranial nerves grossly intact. Psychiatric: Mildly anxious mood and normal affect. Alert and oriented to person, place, and time. Objective Labs Result Diagrams: 09/19/19 04:50 09/19/19 04:50 Labs: Laboratory Results - last 24 hr 09/19/19 09/19/19 09/19/19 04:50 04:50 04:50 WBC 12.5 H RBC 2.82 L Hgb 9.3 L Hct 26.8 L MCV 94.8 MCH 32.9 MCHC 34.7 RDW 14.9 H Plt Count 447 H Neut % (Auto) 70.4 Lymph % (Auto) 16.8 L Grand % (Auto) 8.9 Eos % (Auto) 3.4 Baso % (Auto) 0.5 Neut # (Auto) 8800 H Lymph # (Auto) 2100 Grand # (Auto) 1100 H Eos # (Auto) 400 Baso # (Auto) 100 PT 14.3 H INR 1.3 Sodium 130 L Potassium 3.6 Chloride 95 L Carbon Dioxide 30 BUN 16 Creatinine 0.60 Estimated GFR > 60.0 BUN/Creatinine Ratio 26.7 H Glucose 106 Calcium 7.9 L Magnesium 2.3 Total Bilirubin 2.2 H Conjugated Bilirubin 0.0 Unconjugated Bilirubin 1.9 H AST 216 H ALT 171 H Alkaline Phosphatase 130 H Total Protein 5.7 L Albumin 2.7 L Globulin 3.0 Albumin/Globulin Ratio 0.9 L Assessment & Plan Assessment & Plan narrative: Glenys Munoz is a 79-year-old female with a past medical history significant for coronary artery disease status post CABG x1 vessel, cardiomyopathy, left bundle branch block, aortic stenosis status post mechanical aortic valve on warfarin, hypertension, hyperlipidemia, hypothyroidism, osteoarthritis, osteoporosis, restless leg syndrome, and morbid obesity who presented for elective right total hip arthroplasty. Medicine team has been consulted to manage patient's atrial fibrillation with RVR. 1. Acute blood loss anemia, secondary to anticoagulation, not present on admission. Active. -Initial hemoglobin 11.8. Patient continues to ooze from surgical site but blood counts seem to be stabilized with hemoglobin now 8.8 and slow oozing. Patient has received a total of 5 units PRBC. -Continue to monitor H&H closely. Transfusion goal hemoglobin < 8.0. -INR is now subtherapeutic at 1.2. Plan to continue warfarin 2 mg today at 1700. Continue to monitor INR daily. Discontinued Lovenox and held aspirin. Will re-discuss lovenox tomorrow with orthopedic surgery, they would like to continue to watch her wound at this time without Lovenox. -Iron panel demonstrated iron deficiency anemia. Received Venofer 200 mg x 1 and started ferrous gluconate 324 mg daily. 2. Acute postoperative hypotension in setting of chronic hypertension, not present on admission. Resolved. -Patient was hypotensive due to acute blood loss as below and decreased PO intake. Her blood pressure improved with IV fluid and PRBCs administration. -Discontinued IV fluids as patient is adequately hydrated. Patient has received a total of 4 units PRBC. Plan to give additional 1 unit PRBC to help improve low normal BP and sinus tachycardia. -Held antihypertensives including carvedilol 25 mg twice daily and lisinopril 5 mg daily at bedtime initially. For afib today will resume coreg today at 12.5 mg BID. 3. atrial fibrillation with RVR, not present on admission. Active. -New onset (appears to be less than 48 hours), no prior known history, suspected to be a postoperative complication however now recurred today. -TSH within normal limits. -Electrolytes within normal limits. Continue to monitor electrolytes closely and replete as necessary. Goal K > 4.0 and Mg > 2.0. -echocardiogram revealed an EF of approx 55% with dilated LA. -Received amiodarone 150 mg bolus and 24 hour gtt per protocol. Per patient's cardiology group at [facility] held amiodarone as LFTs are elevating and plan to restart at lower dose once LFTs have improved, but they have not at this point. -Received digoxin 250 mcg IV Q4H x 2 doses then discontinued as patient was cardioverted to sinus rhythm. -Patient had successful cardioversion x 2 to sinus rhythm but has since recurred. -Continue to monitor closely on telemetry. Currently in afib but rate controlled and low normal blood pressure on Coreg. 4. Likely acute possibly on chronic mild transaminitis, unclear if present on admission. Active. -Likely medication induced and related to amiodarone and acetaminophen versus fatty liver disease. -Per patient's cardiology group at [facility] held amiodarone as LFTs are elevating. Also held acetaminophen. -Initial LFTs: Total bilirubin 0.7, AST 48, ALT 27, alk-phos 34. LFTs trending up, unable to give additional amiodarone at this time. Continue monitoring LFTs closely. -liver ultrasound demonstrated increased hepatic echogenicity most consistent with hepatic steatosis and gallbladder is mildly prominent with gallstones prese nt but no gallbladder wall thickening, sonographic Chatman's sign, or pericholecystic fluid to suggest acute cholecystitis. 5. DJD status post right total arthroplasty, acute on chronic, present on ad mission. Improving. -Status post right total hip arthroplasty on 09/12. -Continue postoperative and pain management per Orthopedic surgery. -Implemented bowel regimen as patient has not had BM since admission. Plan to give suppository and/or mineral oil enema today. 6. Type 2 LA, not present on admission. Resolved. -Echocardiogram was technically difficult and demonstrated aortic valve is not w ell visualized, valve type is not known, transvalvular velocities and mean gradient are similar to the reports from the outside hospital, there is moderate to severe mitral annular calcification, more prominent in the posterior annulus with moderate mitral stenosis. Mean gradient is 6 mmHg at heart rate of 84 bpm, left atrium is severely dilated, right ventricle is at the upper limits of normal in size; RV systolic function is normal, RVSP 43 mmHg based on an estimated right atrial pressure of 3 mm Hg. -As anticipated patient had troponin leak due to demand ischemia in setting of atrial fibrillation with RVR and later had a cardioversion x2. Patient denies chest pain or ACS symptoms. No need to further trend troponin. 7. CAD, chronic, present on admission. Stable. -Patient has history of CABG x1 vessel. -Patient endorse lightheadedness and dizziness with diaphoresis due to arrhythmia which has resolved with cardioversion. Denies chest pain or ACS symptoms. -Held aspirin, carvedilol, and lisinopril due to hypotension related to acute blood loss as above. Continue rosuvastatin 40 mg at bedtime. 8. History of mechanical aortic valve, chronic, present admission. Stable. -Held warfarin as INR is supratherapeutic at 3.2. Discontinued Lovenox and held aspirin. Per patient's cardiology group at [facility], held amiodarone as LFTs are elevating and plan to restart at lower dose once LFTs have improved and held warfarin until bleeding stops. INR now at 1.3 today and have resumed warfarin and will increase today to 3mg. Holding on Lovenox at this time given oozing from her RLE requiring transfusions. -Continue to monitor INR daily. Goal INR 2.0-3.0. 9. Hyperlipidemia, chronic, present on admission. Stable. -Continue rosuvastatin 40 mg daily at bedtime and ezetimibe 10 mg daily at bedtime. 10. Hypothyroidism, chronic condition, present on admission, stable -TSH normal at 3.93. Continue levothyroxine 125 mcg daily. Full code. No formal health directive per patient, however patient designates her daughters Sharri and Angela, as surrogate decision makers. VTE prophylaxis: Warfarin and SCDs. Medicine team will continue to follow.
[2019-09-19] MEDS: WARFARIN 3 MG TABLET PO (17:04)
--- NOTE | 2019-09-19 17:47 | PM.PN.1 ---
Subjective Subjective Date Patient Seen: 09/19/19 Time Patient Seen: 17:47 Interval history: Patient is POD#9 s/p right PRIETO with Dr. Randhawa. She was moved from ICU to the acute care unit today. Patient was restarted on her warfarin yesterday, INR today is 1.3. Exam Vital Signs (past 8 hours): - 09/19/19 12:53 09/19/19 15:36 Temperature 97.2 F L 98.4 F Pulse Rate 86 89 Respiratory Rate 20 18 Blood Pressure 95/55 L 95/45 L Pulse Oximetry 94 96 Oxygen Delivery Method Room Air,CPAP Oxygen Flow Rate 0 Narrative Exam Narrative: 79 year old female resting in bed. Alert and oriented in no acute distress. Dressing in place over right hip is intact with moderate amount of sanguineous drainage at middle portion. Dressing removed to reveal easily expressed sanguineous drainage from midpoint of incision. Patient able to flex/extend the ankle. 2+ pitting edema in B/L lower extremities. Palpable pedal pulses with soft, compressible calves. Objective Labs Result Diagrams: 09/20/19 05:38 09/20/19 05:38 Labs: Laboratory Results - last 24 hr 09/19/19 09/19/19 09/19/19 04:50 04:50 04:50 WBC 12.5 H RBC 2.82 L Hgb 9.3 L Hct 26.8 L MCV 94.8 MCH 32.9 MCHC 34.7 RDW 14.9 H Plt Count 447 H Neut % (Auto) 70.4 Lymph % (Auto) 16.8 L [place] % (Auto) 8.9 Eos % (Auto) 3.4 Baso % (Auto) 0.5 Neut # (Auto) 8800 H Lymph # (Auto) 2100 [place] # (Auto) 1100 H Eos # (Auto) 400 Baso # (Auto) 100 PT 14.3 H INR 1.3 Sodium 130 L Potassium 3.6 Chloride 95 L Carbon Dioxide 30 BUN 16 Creatinine 0.60 Estimated GFR > 60.0 BUN/Creatinine Ratio 26.7 H Glucose 106 Calcium 7.9 L Magnesium 2.3 Total Bilirubin 2.2 H Conjugated Bilirubin 0.0 Unconjugated Bilirubin 1.9 H AST 216 H ALT 171 H Alkaline Phosphatase 130 H Total Protein 5.7 L Albumin 2.7 L Globulin 3.0 Albumin/Globulin Ratio 0.9 L Assessment & Plan Assessment & Plan narrative: Continue pressure dressing changes every shift if needed, dressing should be removed at least once daily until drainage resolves. Continue bed rest with bathroom privileges, keep off of right hip, hold PT. Appreciate hospitalist recommendations and care.
[2019-09-19] MEDS: polyethylene glycoL 3350 17 GM POWD.PACK PO (18:29)
[2019-09-19] MEDS: DOCUSATE 100 MG CAPSULE PO (21:06)
[2019-09-19] MEDS: PANTOPRAZOLE 40 MG TABLET PO (21:06)
[2019-09-19] MEDS: ROSUVASTATIN 10 MG TABLET 40 MG PO (21:06)
[2019-09-19] MEDS: EZETIMIBE 10 MG TABLET PO (21:08)
[2019-09-19] MEDS: TRAMADOL 50 MG TABLET 100 MG PO (23:43)
[2019-09-20] VITALS (12 sets, daily range): BP systolic 100–116; BP diastolic 49–63; PULSE 76–88; RESP 16–20; TEMP 36.4–36.9; O2SAT 92–100
[2019-09-20] MEDS: BACLOFEN 10 MG TABLET PO ×3 (03:41→20:22)
[2019-09-20] MEDS: LEVOTHYROXINE 125 MCG TABLET PO (05:56)
[2019-09-20 06:10] LABS: INR 1.3 (0.9-1.3); Prothrombin Time 14.4 SECONDS (10.1-12.7)
[2019-09-20 06:11] LABS: Add Manual Diff / Slide Review NO; Basophils Absolute Auto 0 /uL (0-100); Basophils Percent Auto 0.4 % (0-2); Eosinophils Absolute Auto 500 /uL (0-450); Eosinophils Percent Auto 4.8 % (2-4); Hematocrit 26.8 % (36-46); Hemoglobin 9.3 g/dL (12.0-16.0); Lymphocytes Absolute Auto 1700 /uL (1100-4500); Lymphocytes Percent Auto 17.1 % (25-40); Mean Corpuscular HGB Conc 34.7 % (30-36); Mean Corpuscular Hemoglobin 33.2 PG (26-34); Mean Corpuscular Volume 95.4 fL (80-100); Monocytes Absolute Auto 1000 /uL (0-900); Monocytes Percent Auto 10.2 % (3-14); Neutrophils Absolute Auto 6600 /uL (1500-7000); Neutrophils Percent Auto 67.5 % (50-75); Platelet Count 486 X10^3/uL (150-400); Red Blood Cell Count 2.81 X10^6/uL (4.0-5.2); Red Cell Distribution Width 15.2 % (11.6-14.8); White Blood Cell Count 9.8 X10^3/uL (4.5-11.0)
[2019-09-20 06:21] LABS: Alanine Aminotransferase 232 IU/L (<35); Albumin 2.6 g/dL (3.5-5.0); Albumin Globulin Ratio 0.9 (1.0-2.8); Alkaline Phosphatase 139 U/L (38-126); Aspartate Aminotransferase 272 IU/L (14-36); Bilirubin Total 2.1 mg/dL (0.2-1.3); Bilirubin Unconjugated 1.9 mg/dL (0.0-1.1); Blood Urea Nitrogen 16 mg/dL (7-17); Calcium 7.6 mg/dL (8.4-10.2); Carbon Dioxide 33 mmol/L (22-32); Chloride 95 mmol/L (98-107); Estimated Glomerular Filt Rate > 60.0 mL/min (>60); Glucose 108 mg/dL (80-110); HEMOLYSIS < 15 (0-50); Magnesium 2.3 mg/dL (1.6-2.3); Potassium 3.7 mmol/L (3.4-5.1); Sodium 131 mmol/L (137-145); Total Protein 5.6 g/dL (6.3-8.2)
--- NOTE | 2019-09-20 06:50 | PC.NURSE ---
AxOx3, VSS, refused CPAP overnight so placed on 2L NC HS. No complaints of pain, complaints of muscle spasms in legs thats relieved with baclofen. Pt changed several times throughout night for incontinent voids; strong smelling urine, reported to YVONNE Jerome Turned and positioned q2h with pillow support b/l legs elevated on pillows throughout night. Pt stating she feels they look smaller; b/l SCDs on throughout night right hip dressing has the same abdominal pads placed on evening shift on it that were used as reinforcement. No changes Tele: NSR, BBB For now continued on bed rest. Pt eager to work with PT
[2019-09-20 08:34] LABS: Osmolality Urine 211 mOsm/kg (50-1200)
[2019-09-20] MEDS: FERROUS GLUCONATE 324 MG TABLET PO (09:00)
[2019-09-20] MEDS: DOCUSATE 100 MG CAPSULE PO ×2 (09:01→20:22)
[2019-09-20] MEDS: carvediloL 12.5 MG TABLET PO ×2 (09:01→20:22)
[2019-09-20] MEDS: SODIUM CHLORIDE 0.9% FLUSH 10 ML IV ×2 (09:01→20:27)
[2019-09-20] MEDS: polyethylene glycoL 3350 17 GM POWD.PACK PO (09:01)
[2019-09-20] MEDS: TRAMADOL 50 MG TABLET PO (10:04)
--- NOTE | 2019-09-20 16:22 | PC.NURSE ---
Day Shift- Right hip dressing removed by LUIGI Pollack, incision approximated with leaking to mid incision point, lizzette intact. Bruising noted along incision line extending away for incision. 4X4 gauze pads approx 3-4 stacked over incision, 3 pads across and 2 folded abd pads placed over gauze, secured with medipore tape. Dressing performed by LUIGI Pollack. Pt tolerated well. Per LUIGI Pollack, pt remains on bedrest, no PT at this time. Dr. Madrigal to see pt tomorrow. Evening RN updated.
--- NOTE | 2019-09-20 17:09 | PM.PN.1 ---
Subjective Subjective Date Patient Seen: 09/20/19 Interval history: Patient is POD#10 s/p right PRIETO with Dr. Randhawa. Pain to the operative hip is minimal, majority of discomfort she states is from being in bed. She expresses strong desire to begin PT. Otherwise no complaints. Exam Vital Signs (past 8 hours): - 09/20/19 09:10 09/20/19 11:00 09/20/19 11:26 Temperature 97.9 F Pulse Rate 81 Respiratory Rate 18 Blood Pressure 102/49 L Pulse Oximetry 97 98 92 09/20/19 15:40 Temperature 97.7 F Pulse Rate 87 Respiratory Rate 18 Blood Pressure 115/60 Pulse Oximetry 96 Oxygen Delivery Method Room Air Oxygen Flow Rate 0 Narrative Exam Narrative: 79 year old female resting in bed. Alert and oriented in no acute distress. Pressure dressing in place is intact with saturation at midline of dressing consistent with usual pattern. Dressing taken down to reveal drainage from same midline point of incision which can be expressed from the hip. Objective Labs Result Diagrams: 09/20/19 05:38 09/20/19 05:38 Labs: Laboratory Results - last 24 hr 09/18/19 09/20/19 09/20/19 11:10 05:38 05:38 WBC 9.8 RBC 2.81 L Hgb 9.3 L Hct 26.8 L MCV 95.4 MCH 33.2 MCHC 34.7 RDW 15.2 H Plt Count 486 H Neut % (Auto) 67.5 Lymph % (Auto) 17.1 L [place] % (Auto) 10.2 Eos % (Auto) 4.8 H Baso % (Auto) 0.4 Neut # (Auto) 6600 Lymph # (Auto) 1700 [place] # (Auto) 1000 H Eos # (Auto) 500 H Baso # (Auto) 0 PT 14.4 H INR 1.3 Sodium Potassium Chloride Carbon Dioxide BUN Creatinine Estimated GFR BUN/Creatinine Ratio Glucose Calcium Magnesium Total Bilirubin Conjugated Bilirubin Unconjugated Bilirubin AST ALT Alkaline Phosphatase Total Protein Albumin Globulin Albumin/Globulin Ratio Urine Osmolality 211 09/20/19 05:38 WBC RBC Hgb Hct MCV MCH MCHC RDW Plt Count Neut % (Auto) Lymph % (Auto) [place] % (Auto) Eos % (Auto) Baso % (Auto) Neut # (Auto) Lymph # (Auto) [place] # (Auto) Eos # (Auto) Baso # (Auto) PT INR Sodium 131 L Potassium 3.7 Chloride 95 L Carbon Dioxide 33 H BUN 16 Creatinine 0.50 L Estimated GFR > 60.0 BUN/Creatinine Ratio 32.0 H Glucose 108 Calcium 7.6 L Magnesium 2.3 Total Bilirubin 2.1 H Conjugated Bilirubin 0.0 Unconjugated Bilirubin 1.9 H AST 272 H ALT 232 H Alkaline Phosphatase 139 H Total Protein 5.6 L Albumin 2.6 L Globulin 3.0 Albumin/Globulin Ratio 0.9 L Urine Osmolality Assessment & Plan Assessment & Plan narrative: Minimal improvement in drainage today. Continue bedrest as previously outlined by Dr. Randhawa. Continue daily dressing changes at minimum, or per shift if dressing is saturated. Discussed with hospitalist holding Warfarin for now and using Lovenox instead. If no improvement in drainage will consider possible washout.
--- NOTE | 2019-09-20 18:22 | P.PN_ITS ---
Subjective Subjective Date Patient Seen: 09/20/19 Time Patient Seen: 18:22 Interval history: Gelnys Munoz is a 79-year-old female with a past medical history significant for coronary artery disease status post CABG x1 vessel, cardiomyopathy, left bundle branch block, aortic stenosis status post mechanical aortic valve on warfarin, hypertension, hyperlipidemia, hypothyroidism, osteoarthritis, osteoporosis, restless leg syndrome, and morbid obesity who presented for elective right total hip arthroplasty. Medicine team has been consulted to manage patient's atrial fibrillation with RVR which has since resolved. The patient is resting in bedside chair and appears comfortable. Orthopedic surgery has placed the patient on strict bed rest in hopes that this will aid in stopping her bleeding. However they discussed with me today that she is likely to return to operating room on Sunday. In anticipation of this her Coumadin will again be held and she will be placed on Lovenox starting this evening. She is now back in normal sinus rhythm. Patient was started on iron and Her Hg continues remains stable. She has no significant complaints and denies headache, chest pain, shortness of breath, abdominal pain, nausea, vomiting, fever, chills, dysuria, diarrhea or constipation. She is voiding via [place] catheter, which can be removed once off of strict bed rest. Exam Vital Signs (past 8 hours): - 09/20/19 11:00 09/20/19 11:26 09/20/19 15:40 Temperature 97.9 F 97.7 F Pulse Rate 81 87 Respiratory Rate 18 18 Blood Pressure 102/49 L 115/60 Pulse Oximetry 98 92 96 Oxygen Delivery Method Room Air Oxygen Flow Rate 0 Narrative Exam Narrative: General: Elderly morbidly obese female lying in bed and in no acute distress, well-developed, appropriately interactive. HEENT: Normocephalic, atraumatic. External ears without defect. Pupils equal, round, and reactive to light. Anicteric sclera, moist conjunctivae and no lid lag. Oropharynx free of erythema and cobble stoning with moist mucosa. Neck: Supple with full range of motion. No jugular venous distension. No lymphadenopathy or thyromegaly. Cardiovascular: Regular rate and rhythm with ejection murmur. No rubs or gallops appreciated. Pulmonary: Clear to auscultation bilaterally without crackles, wheezes, or rhonchi. Normal respiratory effort with no use of accessory muscles. Abdomen: Soft, obese, bowel sounds present, nontender, nondistended. No hepatosplenomegaly or masses appreciated. Extremities: No clubbing or cyanosis. Bilateral lower extremity lipedema with bipedal pitting edema. Right hip with bandage in place C/D/I. No erythema or warmth appreciated. Skin: Normal temperature, turgor, and texture; no rash, ulcers, or subcutaneous nodules appreciated. Neurological: Cranial nerves grossly intact. Psychiatric: Mildly anxious mood and normal affect. Alert and oriented to person, place, and time. Objective Labs Result Diagrams: 09/20/19 05:38 09/20/19 05:38 Labs: Laboratory Results - last 24 hr 09/18/19 09/20/19 09/20/19 11:10 05:38 05:38 WBC 9.8 RBC 2.81 L Hgb 9.3 L Hct 26.8 L MCV 95.4 MCH 33.2 MCHC 34.7 RDW 15.2 H Plt Count 486 H Neut % (Auto) 67.5 Lymph % (Auto) 17.1 L [place] % (Auto) 10.2 Eos % (Auto) 4.8 H Baso % (Auto) 0.4 Neut # (Auto) 6600 Lymph # (Auto) 1700 [place] # (Auto) 1000 H Eos # (Auto) 500 H Baso # (Auto) 0 PT 14.4 H INR 1.3 Sodium Potassium Chloride Carbon Dioxide BUN Creatinine Estimated GFR BUN/Creatinine Ratio Glucose Calcium Magnesium Total Bilirubin Conjugated Bilirubin Unconjugated Bilirubin AST ALT Alkaline Phosphatase Total Protein Albumin Globulin Albumin/Globulin Ratio Urine Osmolality 211 09/20/19 05:38 WBC RBC Hgb Hct MCV MCH MCHC RDW Plt Count Neut % (Auto) Lymph % (Auto) [place] % (Auto) Eos % (Auto) Baso % (Auto) Neut # (Auto) Lymph # (Auto) [place] # (Auto) Eos # (Auto) Baso # (Auto) PT INR Sodium 131 L Potassium 3.7 Chloride 95 L Carbon Dioxide 33 H BUN 16 Creatinine 0.50 L Estimated GFR > 60.0 BUN/Creatinine Ratio 32.0 H Glucose 108 Calcium 7.6 L Magnesium 2.3 Total Bilirubin 2.1 H Conjugated Bilirubin 0.0 Unconjugated Bilirubin 1.9 H AST 272 H ALT 232 H Alkaline Phosphatase 139 H Total Protein 5.6 L Albumin 2.6 L Globulin 3.0 Albumin/Globulin Ratio 0.9 L Urine Osmolality Assessment & Plan Assessment & Plan narrative: Glenys Munoz is a 79-year-old female with a past medical history significant for coronary artery disease status post CABG x1 vessel, cardiomyopathy, left bundle branch block, aortic stenosis status post mechanical aortic valve on warfarin, hypertension, hyperlipidemia, hypothyroidism, osteoarthritis, osteoporosis, restless leg syndrome, and morbid obesity who presented for elective right total hip arthroplasty. Medicine team was consulted to manage patient's atrial fibrillation with RVR, but has been involved with multiple medical issues over the course of her stay. 1. Acute blood loss anemia, secondary to anticoagulation, not present on admission. Active. -Initial hemoglobin 11.8. Patient continues to ooze from surgical site but blood counts seem to be stabilized with hemoglobin now 9.3. Patient has received a total of 5 units PRBC. -Continue to monitor H&H closely. Transfusion goal hemoglobin < 8.0. -INR is now subtherapeutic at 1.3. However with plan to return to the OR, will discontinue warfarin again starting this evening and transition to Lovenox. -Iron panel demonstrated iron deficiency anemia. Received Venofer 200 mg x 1 and started ferrous gluconate 324 mg daily. 2. Acute postoperative hypotension in setting of chronic hypertension, not present on admission. Resolved. -Patient was hypotensive due to acute blood loss as below and decreased PO intake. Her blood pressure improved with IV fluid and PRBCs administration. -Discontinued IV fluids as patient is adequately hydrated. Patient has received a total of 4 units PRBC. Plan to give additional 1 unit PRBC to help improve low normal BP and sinus tachycardia. -Held antihypertensives including carvedilol 25 mg twice daily and lisinopril 5 mg daily at bedtime initially. For afib patient has been resumed on Coreg at 12.5 mg b.i.d.. 3. atrial fibrillation with RVR, not present on admission. Active. -New onset (appears to be less than 48 hours), no prior known history, suspected to be a postoperative complication however now recurred a few days after cardioversion, after resuming home Coreg she has now again returned to normal sinus rhythm. -TSH within normal limits. -Electrolytes within normal limits. Continue to monitor electrolytes closely and replete as necessary. Goal K > 4.0 and Mg > 2.0. -echocardiogram revealed an EF of approx 55% with dilated LA. -Received amiodarone 150 mg bolus and 24 hour gtt per protocol. Per patient's cardiology group at [facility] held amiodarone as LFTs are elevating and plan to restart at lower dose once LFTs have improved, but they have not at this point. -Received digoxin 250 mcg IV Q4H x 2 doses then discontinued as patient was cardioverted to sinus rhythm. -Patient had successful cardioversion x 2 to sinus rhythm but has since recurred. -Continue to monitor closely on telemetry. Patient was rate controlled on home Coreg, even at half dose. She is now back in normal sinus rhythm today. She will continue on Coreg 12.5 mg b.i.d. her blood pressures are slowly improving. 4. Likely acute possibly on chronic mild transaminitis, unclear if present on admission. Active. -Likely medication induced and related to amiodarone and acetaminophen versus fatty liver disease. -Per patient's cardiology group at [facility] held amiodarone as LFTs are elevating. Also held acetaminophen. -Initial LFTs: Total bilirubin 0.7, AST 48, ALT 27, alk-phos 34. LFTs trending up, unable to give additional amiodarone at this time. Continue monitoring LFTs closely. -liver ultrasound demonstrated increased hepatic echogenicity most consistent with hepatic steatosis and gallbladder is mildly prominent with gallstones present but no gallbladder wall thickening, sonographic Chatman's sign, or pericholecystic fluid to suggest acute cholecystitis. 5. DJD status post right total arthroplasty, acute on chronic, present on admiss ion. Improving. -Status post right total hip arthroplasty on 09/12. -Continue postoperative and pain management per Orthopedic surgery. -Implemented bowel regimen as patient has not had BM since admission. Plan to give suppository and/or mineral oil enema today. 6. Type 2 [place], not present on admission. Resolved. -Echocardiogram was technically difficult and demonstrated aortic valve is not well visualized, valve type is not known, transvalvular velocities and mean gradient are similar to the reports from the outside hospital, there is moderate to severe mitral annular calcification, more prominent in the posterior annulus with moderate mitral stenosis. Mean gradient is 6 mmHg at heart rate of 84 bpm, left atrium is severely dilated, right ventricle is at the upper limits of normal in size; RV systolic function is normal, RVSP 43 mmHg based on an estimated right atrial pressure of 3 mm Hg. -As anticipated patient had troponin leak due to demand ischemia in setting of atrial fibrillation with RVR and later had a cardioversion x2. Patient denies chest pain or ACS symptoms. No need to further trend troponin. 7. CAD, chronic, present on admission. Stable. -Patient has history of CABG x1 vessel. -Patient endorse lightheadedness and dizziness with diaphoresis due to arrhythmia which has resolved with cardioversion. Denies chest pain or ACS symptoms. -Held aspirin, carvedilol, and lisinopril due to hypotension related to acute blood loss as above. Coreg has since been resumed, aspirin and lisinopril are currently held. Continue rosuvastatin 40 mg at bedtime. 8. History of mechanical aortic valve, chronic, present admission. Stable. -Held warfarin as INR is supratherapeutic at 3.2. Discontinued Lovenox and held aspirin. Per patient's cardiology group at [facility], held amiodarone as LFTs are elevating and previous plan to restart at lower dose once LFTs have improved and held warfarin until bleeding stops. INR was 1.3 today. In anticipation of possible return to the OR on Sunday, her Coumadin is being held and patient will be placed on Lovenox starting this evening. -Continue to monitor INR daily. Goal INR 2.0-3.0 after operative interventions. 9. Hyperlipidemia, chronic, present on admission. Stable. -Continue rosuvastatin 40 mg daily at bedtime and ezetimibe 10 mg daily at bedtime. 10. Hypothyroidism, chronic condition, present on admission, stable -TSH normal at 3.93. Continue levothyroxine 125 mcg daily. Full code. No formal health directive per patient, however patient designates her daughters Sharri and Angela, as surrogate decision makers. VTE prophylaxis: Warfarin and SCDs. Medicine team will continue to follow.
[2019-09-20] MEDS: ROSUVASTATIN 10 MG TABLET 40 MG PO (20:21)
[2019-09-20] MEDS: ENOXAPARIN 60 MG/0.6 ML SYRINGE 120 MG SUBCUT (20:21)
[2019-09-20] MEDS: OXYCODONE IR 5 MG TABLET PO (20:22)
[2019-09-20] MEDS: PANTOPRAZOLE 40 MG TABLET PO (20:23)
[2019-09-20] MEDS: PRAMIPEXOLE 0.25 MG TABLET 0.75 MG PO (20:24)
[2019-09-20] MEDS: EZETIMIBE 10 MG TABLET PO (20:34)
[2019-09-21] VITALS (11 sets, daily range): BP systolic 90–117; BP diastolic 41–53; PULSE 84–90; RESP 16–22; TEMP 36.5–37.4; O2SAT 95–100
[2019-09-21] MEDS: OXYCODONE IR 5 MG TABLET PO ×2 (00:23→17:02)
[2019-09-21 05:53] LABS: INR 1.3 (0.9-1.3); Prothrombin Time 15.2 SECONDS (10.1-12.7)
[2019-09-21 05:54] LABS: Add Manual Diff / Slide Review NO; Basophils Absolute Auto 0 /uL (0-100); Basophils Percent Auto 0.4 % (0-2); Eosinophils Absolute Auto 500 /uL (0-450); Eosinophils Percent Auto 5.1 % (2-4); Hematocrit 25.6 % (36-46); Hemoglobin 8.9 g/dL (12.0-16.0); Lymphocytes Absolute Auto 1800 /uL (1100-4500); Lymphocytes Percent Auto 19.5 % (25-40); Mean Corpuscular HGB Conc 34.9 % (30-36); Mean Corpuscular Hemoglobin 33.3 PG (26-34); Mean Corpuscular Volume 95.4 fL (80-100); Monocytes Absolute Auto 1000 /uL (0-900); Monocytes Percent Auto 10.5 % (3-14); Neutrophils Absolute Auto 5900 /uL (1500-7000); Neutrophils Percent Auto 64.5 % (50-75); Platelet Count 518 X10^3/uL (150-400); Red Blood Cell Count 2.68 X10^6/uL (4.0-5.2); Red Cell Distribution Width 15.5 % (11.6-14.8); White Blood Cell Count 9.2 X10^3/uL (4.5-11.0)
[2019-09-21 05:56] LABS: PTT Partial Thromboplastin Tim 33 SECONDS (26.4-36.2)
[2019-09-21] MEDS: LEVOTHYROXINE 125 MCG TABLET 250 MCG PO (05:56)
[2019-09-21 05:59] LABS: Alanine Aminotransferase 180 IU/L (<35); Albumin 2.5 g/dL (3.5-5.0); Albumin Globulin Ratio 0.8 (1.0-2.8); Alkaline Phosphatase 124 U/L (38-126); Aspartate Aminotransferase 170 IU/L (14-36); Bilirubin Total 1.7 mg/dL (0.2-1.3); Bilirubin Unconjugated 1.6 mg/dL (0.0-1.1); Blood Urea Nitrogen 14 mg/dL (7-17); Calcium 7.5 mg/dL (8.4-10.2); Carbon Dioxide 33 mmol/L (22-32); Chloride 96 mmol/L (98-107); Estimated Glomerular Filt Rate > 60.0 mL/min (>60); Glucose 104 mg/dL (80-110); HEMOLYSIS < 15 (0-50); Magnesium 2.3 mg/dL (1.6-2.3); Potassium 3.7 mmol/L (3.4-5.1); Sodium 130 mmol/L (137-145); Total Protein 5.5 g/dL (6.3-8.2)
[2019-09-21] MEDS: TRAMADOL 50 MG TABLET 100 MG PO (06:00)
--- NOTE | 2019-09-21 06:15 | PC.NURSE ---
Patient dressing clean/dry and intact on this shift. No seepage. Patient complains of pain 10/06. Tramadol given for pain, patient states that she does not want Oxycodone because it makes her loopy. VSS. Patient on 2 liters O2 NC. Patient is Q2 turns. Bed is low and locked, call light within reach, IS encouraged, SCD's applied.
--- NOTE | 2019-09-21 06:57 | PM.PN.1 ---
Subjective Subjective Date Patient Seen: 09/21/19 Interval history: Glenys Munoz is a 79-year-old female with a past medical history significant for coronary artery disease status post CABG x1 vessel, cardiomyopathy, left bundle branch block, aortic stenosis status post mechanical aortic valve on warfarin, hypertension, hyperlipidemia, hypothyroidism, osteoarthritis, osteoporosis, restless leg syndrome, and morbid obesity who presented for elective right total hip arthroplasty. Medicine team was consulted to manage patient's atrial fibrillation with RVR, but has been involved with multiple medical issues over the course of her stay. The patient is resting in bed comfortably. She reports she got up with physical therapy today and did the best she has done. Her surgical site continues to ooze and Orthopedic surgery plans to take patient back to OR tomorrow for washout. The patient is currently being bridged with heparin gtt to prevent thrombosis of aortic mechanical valve. The patient continues to to feel discouraged but is eager to continue rehabilitation. She has no complaints and denies headache, chest pain, shortness of breath, abdominal pain, nausea, vomiting, fever, chills, dysuria, diarrhea or constipation. She is voiding via Hamilton catheter and eliminating without difficulty. Continue physical and occupational therapy. Exam Vital Signs (past 8 hours): - 09/21/19 23:00 09/22/19 00:25 Temperature 98.8 F Pulse Rate 84 83 Respiratory Rate 16 18 Blood Pressure 90/49 L 95/47 L Pulse Oximetry 98 100 Oxygen Delivery Method Nasal Cannula Oxygen Flow Rate 2 Narrative Exam Narrative: General: Elderly morbidly obese female lying in bed and in no acute distress, well-developed, appropriately interactive. HEENT: Normocephalic, atraumatic. External ears without defect. Pupils equal, round, and reactive to light. Anicteric sclera, moist conjunctivae and no lid lag. Neck: Supple with full range of motion. No lymphadenopathy or thyromegaly. Cardiovascular: Regular rate and rhythm with ejection murmur. No rubs or gallops appreciated. Pulmonary: Clear to auscultation bilaterally without crackles, wheezes, or rhonchi. Normal respiratory effort with no use of accessory muscles. Abdomen: Soft, obese, bowel sounds present, nontender, nondistended. No hepatosplenomegaly or masses appreciated. Extremities: No clubbing or cyanosis. Bilateral lower extremity lipedema. Right hip with bandage in place C/D/I with surrounding edema and warmth compared to left hip. Skin: Normal temperature, turgor, and texture; no rash, ulcers, or subcutaneous nodules appreciated. Neurological: Cranial nerves grossly intact. Psychiatric: Mildly anxious mood and normal affect. Alert and oriented to person, place, and time. Objective Labs Result Diagrams: 09/22/19 00:10 09/21/19 05:06 Labs: Laboratory Results - last 24 hr 09/17/19 09/21/19 09/21/19 04:10 05:06 10:10 Hgb Hct APTT 135 H* D Sodium 130 L Potassium 3.7 Chloride 96 L Carbon Dioxide 33 H BUN 14 Creatinine 0.50 L Estimated GFR > 60.0 BUN/Creatinine Ratio 28.0 H Glucose 104 Calcium 7.5 L Magnesium 2.3 Total Bilirubin 1.7 H Conjugated Bilirubin 0.0 Unconjugated Bilirubin 1.6 H AST 170 H ALT 180 H Alkaline Phosphatase 124 Total Protein 5.5 L Albumin 2.5 L Globulin 3.0 Albumin/Globulin Ratio 0.8 L Blood Type Antibody Screen Crossmatch See Detail 09/21/19 09/21/19 09/22/19 15:30 20:56 00:10 Hgb 9.0 L Hct 26.7 L APTT 51 H D 43 H D Sodium Potassium Chloride Carbon Dioxide BUN Creatinine Estimated GFR BUN/Creatinine Ratio Glucose Calcium Magnesium Total Bilirubin Conjugated Bilirubin Unconjugated Bilirubin AST ALT Alkaline Phosphatase Total Protein Albumin Globulin Albumin/Globulin Ratio Blood Type Antibody Screen Crossmatch 09/22/19 09/22/19 02:55 02:55 Hgb Hct APTT 45 H Sodium Potassium Chloride Carbon Dioxide BUN Creatinine Estimated GFR BUN/Creatinine Ratio Glucose Calcium Magnesium Total Bilirubin Conjugated Bilirubin Unconjugated Bilirubin AST ALT Alkaline Phosphatase Total Protein Albumin Globulin Albumin/Globulin Ratio Blood Type A Positive Antibody Screen Negative Crossmatch Assessment & Plan Assessment & Plan narrative: Glenys Munoz is a 79-year-old female with a past medical history significant for coronary artery disease status post CABG x1 vessel, cardiomyopathy, left bundle branch block, aortic stenosis status post mechanical aortic valve on warfarin, hypertension, hyperlipidemia, hypothyroidism, osteoarthritis, osteoporosis, restless leg syndrome, and morbid obesity who presented for elective right total hip arthroplasty. Medicine team was consulted to manage patient's atrial fibrillation with RVR, but has been involved with multiple medical issues over the course of her stay. 1. Acute blood loss anemia, secondary to anticoagulation, not present on admission. Active. -Initial hemoglobin 11.8. Patient continues to ooze from surgical site but blood counts seem to be stabilized with hemoglobin now 8.9. Patient has received a total of 5 units PRBC. -Continue to monitor H&H closely. Transfusion goal hemoglobin < 8.0. -Iron panel demonstrated iron deficiency anemia. Received Venofer 200 mg x 1 and started ferrous gluconate 324 mg daily. -Warfarin has been held as patient is scheduled to go back to OR for washout on 09/22/2019. INR is now subtherapeutic at 1.3. Continue to bridge with heparin gtt and will hold tomorrow morning anticipating surgical intervention. 2. Acute postoperative hypotension in setting of chronic hypertension, not present on admission. Resolved. -Patient was hypotensive due to acute blood loss as below and decreased PO intake. Her blood pressure improved with IV fluid and PRBCs administration. -Discontinued IV fluids as patient is adequately hydrated. Patient has received a total of 5 units PRBC. -Initially held antihypertensives including carvedilol 25 mg twice daily and lisinopril 5 mg daily at bedtime. Restarted carvedilol at decreased dose from 25 mg to 6.25 mg twice daily due to labile BP. 3. Paroxysmal atrial fibrillation with RVR, not present on admission. RVR resolved. -Patient had new onset atrial fibrillation postoperatively. No prior known history of atrial fibrillation. Patient is now status post cardioversion, after resuming home Coreg she has now again returned to normal sinus rhythm. -TSH within normal limits. -Electrolytes within normal limits. Continue to monitor electrolytes closely and replete as necessary. Goal K > 4.0 and Mg > 2.0. -Echocardiogram was technically difficult and demonstrated aortic valve is not well visualized, valve type is not known, transvalvular velocities and mean gradient are similar to the reports from the outside hospital, there is moderate to severe mitral annular calcification, more prominent in the posterior annulus with moderate mitral stenosis. Mean gradient is 6 mmHg at heart rate of 84 bpm, left atrium is severely dilated, right ventricle is at the upper limits of normal in size; RV systolic function is normal, RVSP 43 mmHg based on an estimated right atrial pressure of 3 mm Hg. -Received amiodarone 150 mg bolus and 24 hour gtt per protocol. Per patient's cardiology group at [facility] held amiodarone as LFTs were elevating. Could consider restarting amiodarone at lower dose once LFTs have improved. -Received digoxin 250 mcg IV Q4H x 2 doses then discontinued as patient was cardioverted to sinus rhythm. -Patient had successful cardioversion x 2 to sinus rhythm but atrial fibrillation has since recurred. -Continue to monitor closely on telemetry. Patient was rate controlled on home carvedilol, even at half dose. She is now back in normal sinus rhythm. Restarted carvedilol at decreased dose from 25 mg to 6.25 mg twice daily due to labile BP. 4. Likely acute on chronic mild transaminitis, unclear if present on admission. Active. -Likely medication induced and related to amiodarone and acetaminophen versus fatty liver disease. -Per patient's cardiology group at [facility] held amiodarone as LFTs are elevating. Also held acetaminophen. -Initial LFTs: Total bilirubin 0.7, AST 48, ALT 27, alk-phos 34. LFTs trending up, unable to give additional amiodarone at this time. Continue monitoring LFTs closely. -Liver ultrasound demonstrated increased hepatic echogenicity most consistent with hepatic steatosis and gallbladder is mildly prominent with gallstones present but no gallbladder wall thickening, sonographic Chatman's sign, or pericholecystic fluid to suggest acute cholecystitis. 5. DJD status post right total arthroplasty, acute on chronic, present on admission. Improving. -Status post right total hip arthroplasty on 09/12. -Continue postoperative and pain management per Orthopedic surgery. -Implemented and continue bowel regimen. 6. Type 2 [place], not present on admission. Resolved. -Echocardiogram was technically difficult and demonstrated aortic valve is not well visualized, valve type is not known, transvalvular velocities and mean gradient are similar to the reports from the outside hospital, there is moderate to severe mitral annular calcification, more prominent in the posterior annulus with moderate mitral stenosis. Mean gradient is 6 mmHg at heart rate of 84 bpm, left atrium is severely dilated, right ventricle is at the upper limits of normal in size; RV systolic function is normal, RVSP 43 mmHg based on an estimated right atrial pressure of 3 mm Hg. -As anticipated patient had troponin leak due to demand ischemia in setting of atrial fibrillation with RVR and later had a cardioversion x2. Patient denies chest pain or ACS symptoms. No need to further trend troponin. 7. CAD, chronic, present on admission. Stable. -Patient has history of CABG x1 vessel. -Patient endorse lightheadedness and dizziness with diaphoresis due to arrhythmia which has resolved with cardioversion. Denies chest pain or ACS symptoms. -Initially held aspirin, carvedilol, and lisinopril due to hypotension related to acute blood loss as above. Carvedilol has since been resumed as above. Continue to hold aspirin and lisinopril. Continue rosuvastatin 40 mg at bedtime. 8. History of mechanical aortic valve, chronic, present admission. Stable. -Held warfarin as INR is supratherapeutic at 3.2. Discontinued Lovenox and held aspirin. Per patient's cardiology group at [facility], held amiodarone as LFTs are elevating and previous plan to restart at lower dose once LFTs have improved and held warfarin until bleeding stops. INR was 1.3 today. In anticipation of possible return to the OR on Sunday, her Coumadin is being held and patient will be placed on Lovenox starting this evening. -Continue to monitor INR daily. Goal INR 2.0-3.0 after operative interventions. 9. Hyperlipidemia, chronic, present on admission. Stable. -Continue rosuvastatin 40 mg daily at bedtime and ezetimibe 10 mg daily at bedtime. 10. Hypothyroidism, chronic condition, present on admission, stable -TSH normal at 3.93. Continue levothyroxine 125 mcg daily. Full code. No formal health directive per patient, however patient designates her daughters Sharri and Angela, as surrogate decision makers. VTE prophylaxis: Warfarin and SCDs. Thank you for this most interesting consult. Medicine team will continue to follow along with you.
[2019-09-21] MEDS: DOCUSATE 100 MG CAPSULE PO ×2 (09:12→20:16)
[2019-09-21] MEDS: HEPARIN DRIP 25,000 UNIT/500 ML IV.SOLN 20 UNIT IV (09:14)
[2019-09-21] MEDS: polyethylene glycoL 3350 17 GM POWD.PACK PO (09:29)
[2019-09-21] MEDS: HEPARIN 5,000 UNIT/ML VIAL 5000 UNIT IV (09:29)
[2019-09-21] MEDS: SODIUM CHLORIDE 0.9% FLUSH 10 ML IV ×2 (09:29→20:19)
[2019-09-21] MEDS: FERROUS GLUCONATE 324 MG TABLET PO (09:31)
[2019-09-21] MEDS: carvediloL 3.125 MG TABLET PO (10:49)
[2019-09-21 11:09] LABS: PTT Partial Thromboplastin Tim 135 SECONDS (26.4-36.2)
--- NOTE | 2019-09-21 11:47 | P.PN_ITS ---
Subjective Subjective Date Patient Seen: 09/21/19 Time Patient Seen: 11:48 Interval history: Glenys continues to have ongoing problems with significant right hip drainage. She notes that her right hip is a little sore but not too bad. She denies any new chest pain or shortness of breath. She is eating well without difficulty. Exam Vital Signs (past 8 hours): - 09/21/19 07:30 09/21/19 09:32 09/21/19 10:49 Temperature 97.8 F Pulse Rate 84 Respiratory Rate 22 Blood Pressure 97/41 L 95/41 L 95/41 L Pulse Oximetry 95 Oxygen Delivery Method Nasal Cannula Oxygen Flow Rate 0 Narrative Exam Narrative: She is alert and oriented HEENT is benign heart regular abdomen is obese but soft and benign examination of her right hip shows active drainage from the right hip and fairly significant swelling along the right leg. Calf is soft bilaterally and she has mild pain with range of motion in the right hip leg lengths look symmetrical. Objective Labs Result Diagrams: 09/21/19 05:06 09/21/19 05:06 Labs: Laboratory Results - last 24 hr 09/21/19 09/21/19 09/21/19 05:06 05:06 05:06 WBC 9.2 RBC 2.68 L Hgb 8.9 L Hct 25.6 L MCV 95.4 MCH 33.3 MCHC 34.9 RDW 15.5 H Plt Count 518 H Neut % (Auto) 64.5 Lymph % (Auto) 19.5 L [place] % (Auto) 10.5 Eos % (Auto) 5.1 H Baso % (Auto) 0.4 Neut # (Auto) 5900 Lymph # (Auto) 1800 [place] # (Auto) 1000 H Eos # (Auto) 500 H Baso # (Auto) 0 PT 15.2 H INR 1.3 APTT 33 Sodium 130 L Potassium 3.7 Chloride 96 L Carbon Dioxide 33 H BUN 14 Creatinine 0.50 L Estimated GFR > 60.0 BUN/Creatinine Ratio 28.0 H Glucose 104 Calcium 7.5 L Magnesium 2.3 Total Bilirubin 1.7 H Conjugated Bilirubin 0.0 Unconjugated Bilirubin 1.6 H AST 170 H ALT 180 H Alkaline Phosphatase 124 Total Protein 5.5 L Albumin 2.5 L Globulin 3.0 Albumin/Globulin Ratio 0.8 L 09/21/19 10:10 WBC RBC Hgb Hct MCV MCH MCHC RDW Plt Count Neut % (Auto) Lymph % (Auto) [place] % (Auto) Eos % (Auto) Baso % (Auto) Neut # (Auto) Lymph # (Auto) [place] # (Auto) Eos # (Auto) Baso # (Auto) PT INR APTT 135 H* D Sodium Potassium Chloride Carbon Dioxide BUN Creatinine Estimated GFR BUN/Creatinine Ratio Glucose Calcium Magnesium Total Bilirubin Conjugated Bilirubin Unconjugated Bilirubin AST ALT Alkaline Phosphatase Total Protein Albumin Globulin Albumin/Globulin Ratio Assessment & Plan Assessment & Plan narrative: Impression is right hip hematoma after right total hip arthroplasty. Very complex patient with a history of atrial fibrillation with a rapid ventricular response and a mechanical heart valve and anticoagulation needs. She continues to have significant drainage from her right hip and I think that she likely needs an irrigation and debridement. She is currently on a heparin drip which will be stopped about 6-8 hours before her surgery. She is chronically on Coumadin but had a significant elevated INR associated with the need for amiodarone when she was in atrial fibrillation. I think it is reasonable to mobilize her out of bed today we will allow her to have a clear liquid breakfast and then be NPO tomorrow. She is currently on a heparin drip which will be stopped preoperatively.
--- NOTE | 2019-09-21 13:03 | PC.NURSE ---
Pt repositioned in bed and waffle cushion placed beneath her bottom. Denies pain. IV Heparin drip started at 0930 with Assistance from [facility] ICU. Initial ptt was 33-bolus of 5000 given then Pump set for 20/mls an hour per protocol. Second Ptt checked with result of 135 and pump rate reduced to 17ml/hr. Pt now visiting with family and agrees to call for assistance as needed.
--- NOTE | 2019-09-21 15:00 | PT.IIE ---
Current Diagnoses Unilateral primary osteoarthritis, right hip (09/10/19) Surgery Performed Operation Date: 09/10/19 07:45 Actual Procedures p Total Hip Arthroplasty(Right) - Rod Randhawa MD Surgical History (Last Reviewed 09/12/19 @ 23:18 by YVONNE Romero) H/O: hysterectomy (Acute) History of aortic valve replacement (Acute ~2001) History of lumpectomy of right breast (Acute) Hx of bilateral cataract extraction (Acute) Hx of removal of cyst (Acute) Hx of tonsillectomy (Acute) S/P CABG x 1 (Acute ~2001) Medical History (Last Reviewed 09/12/19 @ 23:18 by YVONNE Romero) CAD (coronary artery disease) (Acute) Cardiomyopathy (Acute) GERD (gastroesophageal reflux disease) (Acute) Glucose intolerance (Acute) Hearing impaired (Acute) HLD (hyperlipidemia) (Acute) HTN (hypertension) (Acute) Hypothyroidism (Acute) LBBB (left bundle branch block) (Acute) Nonrheumatic aortic (valve) stenosis (Acute) Osteoarthritis (Acute) Osteoporosis (Acute) Panic disorder (Acute) RLS (restless legs syndrome) (Acute) Systolic heart failure (Acute) T12 compression fracture (Acute 06/04/12) Urinary incontinence (Acute) Vertigo (Acute) Physical Therapy Inpatient Re-Evaluation M1 PT/OT-IP Prior Functional Status Start: 09/10/19 17:18 Freq: NEEDED Status: Active Protocol: Document 09/10/19 15:25 AB (Rec: 09/10/19 17:31 AB [id number]) Medical Review Prior Functional Status Medical History Reviewed Yes Communication able to make needs known but with some confusion Mobility and Gait pt stated that she is modified independent with all mobilities and ambulation using 2 canes Social History Household Members none Living Arrangements House Number of Floors (Floors) One Floor Number of Stairs To Enter/Railing? 1 step to enter Home Environment High Toilet,Tub/Shower Home Equipment Front Wheel Walker,Straight Cane,Tub Transfer Bench,Hand Held Shower,Grab Bars In Shower Additional Social History Comment pt plans to have her daughter stay with her to assist her as needed pt has a toilet safety frame, an adjustable bed M1 PT/OT-IP Prior Functional Status Start: 09/16/19 17:37 Freq: NEEDED Status: Active Protocol: Document 09/21/19 14:27 AW (Rec: 09/21/19 15:00 AW [id number]) Medical Review Prior Functional Status Medical History Reviewed Yes Communication Able to make needs known but with some confusion Mobility and Gait Pt stated that she is modified indpendent with all mobilities and ambulation using 2 canes Activities of Daily Living and IADL's Pt just needing assist to dry/ wash her feet and back, but otherwise was independent with ADL, IADL, medicaton and bills. Social History Household Members spouse,family Living Arrangements House Number of Floors (Floors) One Floor Number of Stairs To Enter/Railing? 1 step to enter Home Environment High Toilet,Tub/Shower Home Equipment Front Wheel Walker,Straight Cane,Tub Transfer Bench,Hand Held Shower,Grab Bars In Shower Additional Social History Comment Pt originally admitted 09/10/18 for R PRIETO and has had a protracted hospital course with cardiac complications. Pt originally planned to have her daughter stay with her to assist her as needed, but has since been open to considering SNF rehab at discharge. Pt has a toilet safety frame, an adjustable bed M2 PT-IP Current Condition Start: 09/10/19 17:18 Freq: NEEDED Status: Active Protocol: Document 09/21/19 14:27 AW (Rec: 09/21/19 15:00 AW [id number]) Physical Therapy Current Condition Current Condition Evaluation Date 09/21/19 Treatment Diagnosis R PRIETO, a fib w/ RVR, impaired mobility Onset Date 09/10/19 Precautions Posterior Hip Precautions No Hip Flexion > 90 degrees,No Hip Internal Rotation,No Hip Adduction Weight Bearing Status Weight Bearing Status Weight Bear as Tolerated M3 PT-IP Subjective Start: 09/10/19 17:18 Freq: NEEDED Status: Active Protocol: Document 09/21/19 14:27 AW (Rec: 09/21/19 15:00 AW [id number]) Subjective Physical Therapy Visit Type Type Re-Evaluation Visit Start Time 13:40 Visit Stop Time 14:20 Total Visit Minutes 40 Number of WOOD CABINETMAKER Visits 0 Physical Therapy Visit Comments Patient Comments Pt happy to change position, get out of bed Therapy Pain Assessment Pain When Pain Assessed During Mobility Pain Present Pain Present Denied Pain Location right hip Intensity 5 Scale Used 2/10 at rest; 5/10 with mobility Pain Management Techniques Re-positioning,Timing of Activity with Medications M4 PT-IP Mobility and Gait Start: 09/10/19 17:18 Freq: NEEDED Status: Active Protocol: Document 09/21/19 14:27 AW (Rec: 09/21/19 15:00 AW [id number]) PT-Bed Mobility Assessment Rolling Type of Rolling Bilateral Level of Assist Minimal Assistance,1 Person Assistance Supine to Sit Supine to Sit Maximum Assistance,1 Person Assistance,Head of Bed Elevated,Bedrails Sit to Supine Sit to Supine Maximum Assistance,2 Person Assistance,Bedrails Scooting Scooting to Edge of Bed Maximum Assistance Scooting Up and Down in Bed Dependent PT-Transfer Assessment Sit to and From Stand Sit to and from Stand Maximum Assistance,1 Person Assistance,Use of Upper Extremities Equipment Transfer Assistive Device Gait Belt,Front Wheeled Walker Orthotic/Prosthetic Devices or Brace: No Comments Mobility Comments Pt required min A x 1-2 for rolling side to side in order to place draw sheet. Supine to sit was completed with max A x 1 to move her legs using the draw sheet and to right her trunk with use of PT assist from front and pt use of bed cane and rails to pull. She stood from EOB using FWW max A x 1 and maintained upright position for 3 minutes. Transfer back to sitting required mod A x 1 and cues for maintenance of posterior hip precautions. Sit to supine required max A x 2 with PT lifting legs and [employer] OPER[employer] supporting from behind. Pt was able to help ~25% to slide her hips toward the opposite edge of the bed but she was unable to bridge. Pt was carefully repositioned in the bed with pillows placed to help avoid internal rotation. Call light and table placed within reach. Bed alarm armed for safety. Sitting: BP 108/62 HR 94 Standing: BP124/77 HR 115 Gait Assessment Comments Gait Comments Unable to ambulate this visit. Pt did stand 3 minutes and was able to shift weight side to side and alternately lift her heels off the floor using FWW. PT-Balance Assessment Sitting Balance and Reactions Static Sitting Balance Ability Fair Dynamic Sitting Balance Ability Fair Standing Balance and Reactions Static Standing Balance Ability Fair Dynamic Standing Balance Ability Fair Device Used FWW M5 PT-IP Objective Assessments Start: 09/10/19 17:18 Freq: NEEDED Status: Active Protocol: Document 09/21/19 14:27 AW (Rec: 09/21/19 15:00 AW [id number]) Orientation Orientation/Cognition Level of Alertness Alert Orientation Name,Day of Week,Place, Situation Language Function Ability No Deficits Noted Safety Awareness Decreased Safety Awareness Memory Description Short Term Impaired Gross Range of Motion Upper Extremity ROM Assessment Within Functional Limits Lower Extremity ROM Assessment Bilaterally Impaired Impairments RLE tightness and increase guarding affecting PROM Strength Upper Extremity Strength Assessment Within Functional Limits Lower Extremity Strength Assessment Bilaterally Impaired Hip R: 3+/5 L: 4-/5 Knee R: 3-/5 L: 3+/5 Ankle B: 3+/5 Comments Strength Comments MMT limited secondary to pain Sensation Assessment Sensation Gross Sensation WNL M6 PT-IP Treatment Start: 09/10/19 17:18 Freq: NEEDED Status: Active Protocol: Document 09/21/19 14:27 AW (Rec: 09/21/19 15:00 AW [id number]) Physical Therapy Treatment Exercises Exercises Ankle Pumps,Gluteal Sets,Quad Sets,Heel Slides Other Treatments Other Treatment Performed Provided education on role of PT, plan of care, weightbearing status, and safe use of FWW. M7 PT-IP Assessment and Plan Start: 09/10/19 17:18 Freq: NEEDED Status: Active Protocol: Document 09/21/19 14:27 AW (Rec: 09/21/19 15:00 AW [id number]) PT Summary Assessment and Plan Potential Rehabilitation Potential Fair Status of Condition at Evaluation Evolving Summary Impairments Pain,ROM,Strength,Balance, Coordination,Sensation,Tone, Cognition,Bed Mobility, Transfers,Gait,Activity Tolerance Assessment Summary Glenys is an 79 yo woman seen for re-evaluation after several days on bed rest. She underwent R PRIETO on 09/10/19 and has had a protracted hospital course involving cardiac complications. At baseline, she was mod independent for all mobility using 2 canes. On evaluation, she required max A x 1-2 for all mobility up to standing 3 minutes with FWW. She was unable to ambulate or transfer this visit. PT recommending SNF rehab when pt is medically cleared for discharge. Goals Bed Mobility Goal Minimal Assistance Transfer Goal Minimal Assistance,Front Wheeled Walker Gait Goal Minimal Assistance,Front Wheel Walker Gait Distance 20 Other Goals revised goals base on re- evaluation Days to Meet Goals 10 Frequency of Treatment Frequency Of Treatment Twice a Day Treatment Plan Physical Therapy Treatment Plan Bed Mobility Training,Transfer Training,Gait Training, Therapeutic Exercise,Balance Retraining,Post Op Education, Discharge Planning,Hot or Cold Pack,Neuromuscular Re-ed, Coordination Retraining,Manual Therapy Other Recommendations and Next Treatment bed mobility, trnasfers, Focus ambulate with chair follow if able Recommendations To Nursing Amount of Assist Needed 3 or More Person Assist, Mechanical Lift Discharge Recommendations PT Discharge Recommendations SNF Rehab
[2019-09-21 15:54] LABS: PTT Partial Thromboplastin Tim 51 SECONDS (26.4-36.2)
[2019-09-21] MEDS: BACLOFEN 10 MG TABLET PO (17:03)
[2019-09-21] MEDS: TRAMADOL 50 MG TABLET PO (20:16)
[2019-09-21] MEDS: PANTOPRAZOLE 40 MG TABLET PO (20:16)
[2019-09-21] MEDS: EZETIMIBE 10 MG TABLET PO (20:16)
[2019-09-21] MEDS: ROSUVASTATIN 10 MG TABLET 40 MG PO (20:16)
[2019-09-21] MEDS: carvediloL 3.125 MG TABLET 6.25 MG PO (20:17)
--- NOTE | 2019-09-21 20:39 | PC.NURSE ---
Pt does not want to take oxycodone for pain; just Tramadol. She is tolerating heparin drip well and is encouraged that she was able to stand up with PT today. She is rating her pain 4/10. She will only turn to the R or lie supine 2/2 R hip and leg pain. She is compliant with wearing her SCDs. She has had a BM this shift. She is eating, drinking and voiding well.
[2019-09-21 21:14] LABS: PTT Partial Thromboplastin Tim 43 SECONDS (26.4-36.2)
--- NOTE | 2019-09-21 22:12 | PC.NURSE ---
Pt wound bleeding moderately with saturated dressing. Changed with numerous 4 x 4 s and abdominal pads. Pt tolerated in an average way. 2100 PTT = 43, heparin drip increased to 18 mLs per hour.
[2019-09-21] MEDS: SODIUM CHLORIDE 0.9% 250 ML 475 ML IV (23:47)
[2019-09-22] VITALS (22 sets, daily range): BP systolic 91–115; BP diastolic 41–66; PULSE 69–89; RESP 10–20; TEMP 35.9–37; O2SAT 92–100; BMI 45.2
[2019-09-22 00:25] LABS: Hematocrit 26.7 % (36-46)
[2019-09-22] MEDS: TRAMADOL 50 MG TABLET 100 MG PO ×2 (02:29→08:32)
[2019-09-22 03:13] LABS: PTT Partial Thromboplastin Tim 45 SECONDS (26.4-36.2)
[2019-09-22 06:11] LABS: Add Manual Diff / Slide Review NO; Basophils Absolute Auto 0 /uL (0-100); Basophils Percent Auto 0.4 % (0-2); Eosinophils Absolute Auto 500 /uL (0-450); Eosinophils Percent Auto 4.5 % (2-4); Hematocrit 26.2 % (36-46); Lymphocytes Absolute Auto 2000 /uL (1100-4500); Lymphocytes Percent Auto 18.1 % (25-40); Mean Corpuscular HGB Conc 34.2 % (30-36); Mean Corpuscular Volume 96.7 fL (80-100); Monocytes Absolute Auto 1300 /uL (0-900); Neutrophils Absolute Auto 7000 /uL (1500-7000); Platelet Count 591 X10^3/uL (150-400); Red Blood Cell Count 2.71 X10^6/uL (4.0-5.2); Red Cell Distribution Width 16.1 % (11.6-14.8); White Blood Cell Count 10.8 X10^3/uL (4.5-11.0)
[2019-09-22 06:20] LABS: Alanine Aminotransferase 131 IU/L (<35); Albumin 2.6 g/dL (3.5-5.0); Albumin Globulin Ratio 0.9 (1.0-2.8); Alkaline Phosphatase 122 U/L (38-126); Aspartate Aminotransferase 93 IU/L (14-36); BUN Creatinine Ratio 27.5 (6-22); Bilirubin Total 1.6 mg/dL (0.2-1.3); Blood Urea Nitrogen 11 mg/dL (7-17); Calcium 7.4 mg/dL (8.4-10.2); Carbon Dioxide 32 mmol/L (22-32); Chloride 96 mmol/L (98-107); Estimated Glomerular Filt Rate > 60.0 mL/min (>60); Glucose 103 mg/dL (80-110); HEMOLYSIS < 15 (0-50); Potassium 3.6 mmol/L (3.4-5.1); Sodium 131 mmol/L (137-145); Total Protein 5.6 g/dL (6.3-8.2)
[2019-09-22] MEDS: LEVOTHYROXINE 125 MCG TABLET PO (06:36)
--- NOTE | 2019-09-22 07:50 | PM.PNPO.1 ---
Subjective Subjective Date Patient Seen: 09/22/19 Time Patient Seen: 07:50 Interval history: Pain under control. Denies fever or chills. Exam Vital Signs (past 8 hours): - 09/22/19 00:25 09/22/19 06:00 09/22/19 07:28 Temperature 97.7 F Pulse Rate 83 89 Respiratory Rate 18 16 Blood Pressure 95/47 L 112/57 L Pulse Oximetry 100 99 97 Oxygen Delivery Method Nasal Cannula Oxygen Flow Rate 2 Narrative Exam Narrative: 79-year-old female resting comfortably in bed in no apparent distress Objective Labs Result Diagrams: 09/22/19 05:26 09/22/19 05:26 Labs: Laboratory Results - last 24 hr 09/17/19 09/21/19 09/21/19 04:10 10:10 15:30 WBC RBC Hgb Hct MCV MCH MCHC RDW Plt Count Neut % (Auto) Lymph % (Auto) [place] % (Auto) Eos % (Auto) Baso % (Auto) Neut # (Auto) Lymph # (Auto) [place] # (Auto) Eos # (Auto) Baso # (Auto) APTT 135 H* D 51 H D Sodium Potassium Chloride Carbon Dioxide BUN Creatinine Estimated GFR BUN/Creatinine Ratio Glucose Calcium Total Bilirubin AST ALT Alkaline Phosphatase Total Protein Albumin Globulin Albumin/Globulin Ratio Blood Type Antibody Screen Crossmatch See Detail 09/21/19 09/22/19 09/22/19 20:56 00:10 02:55 WBC RBC Hgb 9.0 L Hct 26.7 L MCV MCH MCHC RDW Plt Count Neut % (Auto) Lymph % (Auto) [place] % (Auto) Eos % (Auto) Baso % (Auto) Neut # (Auto) Lymph # (Auto) [place] # (Auto) Eos # (Auto) Baso # (Auto) APTT 43 H D 45 H Sodium Potassium Chloride Carbon Dioxide BUN Creatinine Estimated GFR BUN/Creatinine Ratio Glucose Calcium Total Bilirubin AST ALT Alkaline Phosphatase Total Protein Albumin Globulin Albumin/Globulin Ratio Blood Type Antibody Screen Crossmatch 09/22/19 09/22/19 09/22/19 02:55 05:26 05:26 WBC 10.8 RBC 2.71 L Hgb 9.0 L Hct 26.2 L MCV 96.7 MCH 33.0 MCHC 34.2 RDW 16.1 H Plt Count 591 H Neut % (Auto) 65.0 Lymph % (Auto) 18.1 L [place] % (Auto) 12.0 Eos % (Auto) 4.5 H Baso % (Auto) 0.4 Neut # (Auto) 7000 Lymph # (Auto) 2000 [place] # (Auto) 1300 H Eos # (Auto) 500 H Baso # (Auto) 0 APTT Sodium 131 L Potassium 3.6 Chloride 96 L Carbon Dioxide 32 BUN 11 Creatinine 0.40 L Estimated GFR > 60.0 BUN/Creatinine Ratio 27.5 H Glucose 103 Calcium 7.4 L Total Bilirubin 1.6 H AST 93 H ALT 131 H Alkaline Phosphatase 122 Total Protein 5.6 L Albumin 2.6 L Globulin 3.0 Albumin/Globulin Ratio 0.9 L Blood Type A Positive Antibody Screen Negative Crossmatch Assessment & Plan Post-op Postoperative Procedures: Procedures Operation Date: 09/10/19 07:45 Actual Procedures Side Surgeon p Total Hip Arthroplasty Right Rod Randhawa MD Operation Date: 09/22/19 16:00 <No data on this case meets the specified criteria> Patient is status post right total hip arthroplasty with right hip hematoma. Patient continues to have significant drainage from the right hip. Dr. Randhawa has seen her this morning and planned I and D of hematoma this afternoon. Patient's NPO.
[2019-09-22] MEDS: LACTATED RINGERS 1,000 ML 100 ML IV (08:04)
[2019-09-22 08:20] LABS: C-Reactive Protein Quant 7.5 mg/dL (<1.0)
[2019-09-22 08:28] LABS: Erythrocyte Sedimentation Rate > 140 MM/HR (0-20)
[2019-09-22] MEDS: carvediloL 3.125 MG TABLET PO ×2 (08:31→22:37)
[2019-09-22 09:57] LABS: PTT Partial Thromboplastin Tim 31 SECONDS (26.4-36.2)
--- NOTE | 2019-09-22 11:46 | PT.IPTN ---
Current Diagnoses Unilateral primary osteoarthritis, right hip (09/10/19) Surgery Performed Operation Date: 09/10/19 07:45 Actual Procedures p Total Hip Arthroplasty(Right) - Rod Randhawa MD Operation Date: 09/22/19 16:00 <No data on this case meets the specified criteria> Physical Therapy Treatment Note M2 PT-IP Current Condition Start: 09/10/19 17:18 Freq: NEEDED Status: Active Protocol: Document 09/21/19 14:27 AW (Rec: 09/21/19 15:00 AW [id number]) Physical Therapy Current Condition Current Condition Evaluation Date 09/21/19 Treatment Diagnosis R PRIETO, a fib w/ RVR, impaired mobility Onset Date 09/10/19 Precautions Posterior Hip Precautions No Hip Flexion > 90 degrees,No Hip Internal Rotation,No Hip Adduction Weight Bearing Status Weight Bearing Status Weight Bear as Tolerated M3 PT-IP Subjective Start: 09/10/19 17:18 Freq: NEEDED Status: Active Protocol: Document 09/22/19 11:35 AW (Rec: 09/22/19 11:46 AW [id number]) Subjective Physical Therapy Visit Type Type Treatment Note Visit Start Time 10:52 Visit Stop Time 11:32 Total Visit Minutes 40 Physical Therapy Visit Comments Patient Comments Pt interested in standing again, trying to walk. Therapy Pain Assessment Pain When Pain Assessed During Mobility Pain Present Pain Present Pain Reported Location Head Intensity 2 Scale Used Numeric (1 - 10) right hip Intensity 1 Scale Used Numeric (1 - 10) M4 PT-IP Mobility and Gait Start: 09/10/19 17:18 Freq: NEEDED Status: Active Protocol: Document 09/22/19 11:35 AW (Rec: 09/22/19 11:46 AW [id number]) PT-Bed Mobility Assessment Supine to Sit Supine to Sit Maximum Assistance,1 Person Assistance,Head of Bed Elevated,Bedrails Sit to Supine Sit to Supine Maximum Assistance,1 Person Assistance,Bedrails Scooting Scooting to Edge of Bed Moderate Assistance Scooting Up and Down in Bed Maximum Assistance PT-Transfer Assessment Sit to and From Stand Sit to and from Stand Maximum Assistance,1 Person Assistance,Use of Upper Extremities Equipment Transfer Assistive Device Gait Belt,Front Wheeled Walker Orthotic/Prosthetic Devices or Brace: No Transfers Transfer Destination Bed,Chair Transfer Technique Stand Step Pivot Transfer Ability Level of Assist Moderate Assistance,1 Person Assistance,Use of Upper Extremities Comments Mobility Comments Pt encountered sitting in bed. She is NPO for planned I&D this afternoon. She completed supine to sit max A x 1 with heavy use of bed features including bed rails and bed cane. She also required max use of draw sheet to rotate her hips as she is profoundly weak in her right hip. She sat EOB until lightheadedness resolved. BP in sitting was 112/64 HR 85. Pt required max A x 1 to stand with FWW, mod A x to transfer with stand step pivot to chair and back to bed. Sit to supine required max A x 1 to elevate her legs to the bed and to reposition. Pt's right leg tends to lie in internal rotation. Pt positioned with pillows in order to counteract habitual posture. Bed alarm was armed for safety, call light and all needs within reach. Gait Assessment Gait Gait Assistance Required: Minimum Assistance,1 Person Assist Distance (Feet) 3 Able to Maintain Weight Bearing Status Yes During Gait Assistive Devices Assistive Device Gait Belt,Front Wheeled Walker Orthotic/Prosthetic Devices or Brace: No Gait Deviations General Gait Pattern Antalgic,Decreased Stride Length,Decreased Feet Clearance,Flexed Trunk,Step-to Gait Factors Limiting Gait Function Factors Limiting Gait Function Decreased Activity Tolerance, Decreased Strength,Limited Range of Motion,Pain,Poor Balance Comments Gait Comments See mobility comments. Pt able to observe hip precautions with transfers and ambulation. M5 PT-IP Objective Assessments Start: 09/10/19 17:18 Freq: NEEDED Status: Active Protocol: Document 09/21/19 14:27 AW (Rec: 09/21/19 15:00 AW [id number]) Orientation Orientation/Cognition Level of Alertness Alert Orientation Name,Day of Week,Place, Situation Language Function Ability No Deficits Noted Safety Awareness Decreased Safety Awareness Memory Description Short Term Impaired Gross Range of Motion Upper Extremity ROM Assessment Within Functional Limits Lower Extremity ROM Assessment Bilaterally Impaired Impairments RLE tightness and increase guarding affecting PROM Strength Upper Extremity Strength Assessment Within Functional Limits Lower Extremity Strength Assessment Bilaterally Impaired Hip R: 3+/5 L: 4-/5 Knee R: 3-/5 L: 3+/5 Ankle B: 3+/5 Comments Strength Comments MMT limited secondary to pain Sensation Assessment Sensation Gross Sensation WNL M6 PT-IP Treatment Start: 09/10/19 17:18 Freq: NEEDED Status: Active Protocol: Document 09/22/19 11:35 AW (Rec: 09/22/19 11:46 AW [id number]) Physical Therapy Treatment Exercises Exercises Ankle Pumps,Gluteal Sets,Quad Sets,Heel Slides Other Treatments Other Treatment Performed Heel slides performed with active assist due to R hip weakness. Pt able to recall all hip precautions. M7 PT-IP Assessment and Plan Start: 09/10/19 17:18 Freq: NEEDED Status: Active Protocol: Document 09/22/19 11:35 AW (Rec: 09/22/19 11:46 AW [id number]) PT Summary Assessment and Plan Summary Impairments Pain,ROM,Strength,Balance, Coordination,Sensation,Tone, Cognition,Bed Mobility, Transfers,Gait,Activity Tolerance Progress Towards Goals Slow Progress due to Pain,Slow Progress due to Activity Tolerance Assessment Summary Glenys was in a good mood this morning, willing to work with therapy. She was able to transfer to the chair and back to the bed today. She is able to recall and observe posterior hip precautions during mobility, but requires careful positioning in the bed in order to counteract postural internal rotation of the right hip. She is scheduled for I&D later this afternoon. Will see pt again morning of 09/23/19. Do not anticipate need for re- evaluation. Goals Bed Mobility Goal Minimal Assistance Transfer Goal Minimal Assistance,Front Wheeled Walker Gait Goal Minimal Assistance,Front Wheel Walker Gait Distance 20 Days to Meet Goals 10 Frequency of Treatment Frequency Of Treatment Twice a Day Treatment Plan Physical Therapy Treatment Plan Bed Mobility Training,Transfer Training,Gait Training, Therapeutic Exercise,Balance Retraining,Post Op Education, Discharge Planning,Hot or Cold Pack,Neuromuscular Re-ed, Coordination Retraining,Manual Therapy Other Recommendations and Next Treatment transfers, ambulate with FWW Focus and chair follow if able Recommendations To Nursing Amount of Assist Needed 2 Person Assist,3 or More Person Assist Discharge Recommendations PT Discharge Recommendations SNF Rehab
[2019-09-22] MEDS: ACETAMINOPHEN 325 MG TABLET 975 MG PO (15:39)
[2019-09-22] MEDS: GABAPENTIN 300 MG CAPSULE PO (15:39)
[2019-09-22] MEDS: LACTATED RINGERS 1,000 ML 42 ML IV ×2 (15:40→18:06)
--- NOTE | 2019-09-22 16:12 | PM.PREOP ---
Pre-operative Note Interval Note History & Physical reviewed/Exam performed by Physician: Yes Changes to H&P: No
[2019-09-22] MEDS: CEFAZOLIN 2 GM/100 ML FROZ.PIGGY IV (16:53)
[2019-09-22] MEDS: SODIUM CHLORIDE 0.9% 3,000 ML, GENTAMICIN 80 MG IRR (17:06)
[2019-09-22] MEDS: ONDANSETRON 4 MG/2 ML INJ IV (18:02)
[2019-09-22] MEDS: fentaNYL 100 MCG/2 ML INJ IV (18:02)
--- NOTE | 2019-09-22 18:15 | PM.OP.1 ---
Operative Date/Time/Diagnoses Date of procedure: 09/22/19 Time of procedure: 18:16 Pre-op diagnosis: Status post right total hip arthroplasty deep subcutaneous hematoma Post-op diagnosis: same Procedure & Clinicians Procedure: Incision and drainage, irrigation and debridement right hip hematoma Same procedure as scheduled: Yes Indications: 79-year-old female 12 days status post right total hip arthroplasty with deep subcutaneous hematoma and continued drainage from sinus tract. Postoperative course complicated by atrial fibrillation and over anticoagulation with resultant hematoma. Discussed nature of condition treatment options risks and benefits and recommend incision and drainage irrigation and debridement. Informed consent obtained. Surgeon: Rod aRndhawa Click Yes if Unassisted: Yes Anesthesia Type: General and Spinal Operative Notes Findings: Large (approximately 300 cc) deep subcutaneous hematoma. Fascia intact. Closure Type: primary Specimen(s): other (Culture swab hematoma x2) Applied: drain(s) (1/8 Hemovac x2) Estimated Blood Loss (mL): 5 Procedure in detail: After administration of general anesthetic patient placed in lateral decubitus position with all bony prominences well padded and pelvic position secured using a hip lobby attendant positioning device. Right hip and lower extremity then prepped and draped in the usual sterile fashion. [place] then removed from the incision and the hip area re-prepped with Betadine. Culture swab then inserted through the sinus tract and sent for Gram stain and culture. Subcutaneous and deep subcutaneous sutures were then removed and a large pocket of coagulated hematoma encountered which was then debrided and entirety of the hematoma material removed from the wound. The fascia was then thoroughly inspected and was intact. The wound pocket was copiously irrigated with 3 L of pulsatile irrigation infused with gentamicin. Hemostasis obtained with electrocautery. Two 1/8 Hemovac drains placed exiting anterior- inferiorly, and in the deep subcutaneous layer just superficial to the fascia. Deep subcutaneous tissue closed with 0 Vicryl. Subcutaneous layer closed with 2 O Vicryl. Skin layer closed closed with interrupted #2 Nylon sutures and alternating with lizzette. Merlene dressing applied and Hemovacs placed on suction. Anesthetic terminated the patient taken to postanesthetic recovery in satisfactory condition. Complications: none Post-operative Condition: stable Disposition: PACU Plan for aftercare: Routine postoperative after care. Ambulation and mobilization per protocol with weight-bearing as tolerated and posterior hip precautions. Anticoagulation will be returned to preoperative dose of warfarin with extreme care being taken to observe daily INR. Hemovac drains may be removed when drainage is less than 10 cc per shift. Discharge after Hemovac drains are removed. Suture and staple removal at 2 weeks postop from today.
[2019-09-22] MEDS: LACTATED RINGERS 1,000 ML 75 ML IV (20:41)
--- NOTE | 2019-09-22 21:16 | PM.PN.1 ---
Subjective Subjective Date Patient Seen: 09/22/19 Time Patient Seen: 20:20 Interval history: Glenys Munoz is a 79-year-old female with a past medical history significant for coronary artery disease status post CABG x1 vessel, cardiomyopathy, left bundle branch block, aortic stenosis status post mechanical aortic valve on warfarin, hypertension, hyperlipidemia, hypothyroidism, osteoarthritis, osteoporosis, restless leg syndrome, and morbid obesity who presented for elective right total hip arthroplasty. Was admitted by Orthopedics with medicine service consult for management of complicated atrial fibrillation with rapid ventricular response and associated medical issues. The patient is resting in bed comfortably semi recumbent in bed have return to the floor following surgical procedure for Incision and drainage, irrigation and debridement right hip and evacuation of [address] Randhawa. Patient has Hemovac in place and with minimal output. She reports minimal pain. She is drowsy and denies headache, chest pain or palpitations, shortness of breath or abdominal pain. Hamilton catheter remains in place. Plan is to increase patient mobility and activity per protocol posterior hip approach. Exam Vital Signs (past 8 hours): - 09/22/19 15:51 09/22/19 17:53 09/22/19 17:57 Temperature 97.2 F L 97.5 F L Pulse Rate 81 79 73 Respiratory Rate 16 11 L 10 L Blood Pressure 106/66 101/52 L 94/46 L Pulse Oximetry 98 92 93 09/22/19 18:02 09/22/19 18:07 09/22/19 18:13 Temperature Pulse Rate 73 74 73 Respiratory Rate 15 14 10 L Blood Pressure 98/44 L 96/44 L 94/44 L Pulse Oximetry 92 94 94 09/22/19 18:17 09/22/19 18:22 09/22/19 18:32 Temperature Pulse Rate 72 73 71 Respiratory Rate 11 L 10 L 13 Blood Pressure 91/42 L 103/44 L 99/46 L Pulse Oximetry 94 96 94 09/22/19 19:15 09/22/19 19:51 09/22/19 20:30 Temperature 96.6 F L 96.9 F L 96.8 F L Pulse Rate 79 69 69 Respiratory Rate 18 18 20 Blood Pressure 115/41 L 99/50 L 100/52 L Pulse Oximetry 100 100 100 Oxygen Delivery Method Room Air Oxygen Flow Rate 0 Narrative Exam Narrative: General: Well developed, elderly obese female drowsy following surgical procedure in no acute distress. Skin: Warm, dry, pale HEENT: Normocephalic, PERRLA, conjunctiva clear, oropharynx is moist without lesion, no lymphadenopathy Neck: Supple, no masses, trachea midline. Cardiac: Regular rate and rhythm, heart rate of 77, S1-S2, 1/6 systolic murmur, with a clicks, 2+ radial pulse, 1+ dorsalis pedis pulses bilaterally Chest: Symmetrical movement, breathing shallow non labored, no cough present, BS equal bilateral without coarseness, crackles or wheezes Abdomen: Soft, no tenderness or guarding, BS normal. Extremities: Distal CMS intact, bilateral lower extremity edema. Right hip with bandage in place clean dry and intact, Hemovac with sanguinous drainage Neuro: AAOx3, no localizing neurological findings, no paresthesias Psych: Drowsy, cooperative, stable behavior Objective Labs Result Diagrams: 09/22/19 05:26 09/22/19 05:26 Labs: Laboratory Results - last 24 hr 09/17/19 09/21/19 09/22/19 04:10 20:56 00:10 WBC RBC Hgb 9.0 L Hct 26.7 L MCV MCH MCHC RDW Plt Count Neut % (Auto) Lymph % (Auto) [place] % (Auto) Eos % (Auto) Baso % (Auto) Neut # (Auto) Lymph # (Auto) [place] # (Auto) Eos # (Auto) Baso # (Auto) ESR APTT 43 H D Sodium Potassium Chloride Carbon Dioxide BUN Creatinine Estimated GFR BUN/Creatinine Ratio Glucose Calcium Total Bilirubin AST ALT Alkaline Phosphatase C-Reactive Protein Total Protein Albumin Globulin Albumin/Globulin Ratio Blood Type Antibody Screen Crossmatch See Detail 09/22/19 09/22/19 09/22/19 02:55 02:55 05:26 WBC 10.8 RBC 2.71 L Hgb 9.0 L Hct 26.2 L MCV 96.7 MCH 33.0 MCHC 34.2 RDW 16.1 H Plt Count 591 H Neut % (Auto) 65.0 Lymph % (Auto) 18.1 L [place] % (Auto) 12.0 Eos % (Auto) 4.5 H Baso % (Auto) 0.4 Neut # (Auto) 7000 Lymph # (Auto) 2000 [place] # (Auto) 1300 H Eos # (Auto) 500 H Baso # (Auto) 0 ESR APTT 45 H Sodium Potassium Chloride Carbon Dioxide BUN Creatinine Estimated GFR BUN/Creatinine Ratio Glucose Calcium Total Bilirubin AST ALT Alkaline Phosphatase C-Reactive Protein Total Protein Albumin Globulin Albumin/Globulin Ratio Blood Type A Positive Antibody Screen Negative Crossmatch 09/22/19 09/22/19 09/22/19 05:26 05:26 05:26 WBC RBC Hgb Hct MCV MCH MCHC RDW Plt Count Neut % (Auto) Lymph % (Auto) [place] % (Auto) Eos % (Auto) Baso % (Auto) Neut # (Auto) Lymph # (Auto) [place] # (Auto) Eos # (Auto) Baso # (Auto) ESR > 140 H APTT Sodium 131 L Potassium 3.6 Chloride 96 L Carbon Dioxide 32 BUN 11 Creatinine 0.40 L Estimated GFR > 60.0 BUN/Creatinine Ratio 27.5 H Glucose 103 Calcium 7.4 L Total Bilirubin 1.6 H AST 93 H ALT 131 H Alkaline Phosphatase 122 C-Reactive Protein 7.5 H Total Protein 5.6 L Albumin 2.6 L Globulin 3.0 Albumin/Globulin Ratio 0.9 L Blood Type Antibody Screen Crossmatch 09/22/19 09:40 WBC RBC Hgb Hct MCV MCH MCHC RDW Plt Count Neut % (Auto) Lymph % (Auto) [place] % (Auto) Eos % (Auto) Baso % (Auto) Neut # (Auto) Lymph # (Auto) [place] # (Auto) Eos # (Auto) Baso # (Auto) ESR APTT 31 D Sodium Potassium Chloride Carbon Dioxide BUN Creatinine Estimated GFR BUN/Creatinine Ratio Glucose Calcium Total Bilirubin AST ALT Alkaline Phosphatase C-Reactive Protein Total Protein Albumin Globulin Albumin/Globulin Ratio Blood Type Antibody Screen Crossmatch Assessment & Plan Assessment & Plan narrative: This is an 79-year-old female patient has had complicated postoperative course after right hip surgery. Patient return to the OR today for I and D with washout of an estimated 300 cc hematoma. The patient appears to have tolerated the procedure well and is in minimal discomfort. 1. Acute blood loss anemia, secondary to anticoagulation, not present on admission. Active. -the patient had been started on heparin drip in anticipation of surgery today and experienced significant bleeding, hemoglobin last night was 9.0 and again 9.0 this morning. Patient has received a total of 5 units PRBC. -Continue to monitor H&H postoperatively. Transfusion goal hemoglobin < 8.0. -Iron panel demonstrated iron deficiency anemia. Received Venofer 200 mg x 1. Continue ferrous gluconate 324 mg daily. 2. Acute postoperative hypotension in setting of chronic hypertension, not present on admission. Resolved. -Patient was hypotensive due to acute blood loss as below and decreased PO intake. Her blood pressure improved with IV fluid and PRBCs administration. -Discontinued IV fluids as patient is adequately hydrated. Patient has received a total of 5 units PRBC. -Initially held antihypertensives including carvedilol 25 mg twice daily and lisinopril 5 mg daily at bedtime. Restarted carvedilol at decreased dose from 25 mg to 6.25 mg twice daily due to labile BP. -Patient with minimal p.o. intake will continue gentle IV hydration to prevent recurrence of atrial fibrillation at 75 cc/hour. 3. Paroxysmal atrial fibrillation with RVR, not present on admission. RVR resolved. -Patient had atrial fibrillation following 1st hip surgery with instability requiring cardioversion. Rhythm is been resistant for extent. Now stable in sinus rhythm. -TSH within normal limits. -Electrolytes within normal limits. Continue to monitor electrolytes closely and replete as necessary. Goal K > 4.0 and Mg > 2.0. -Echocardiogram was technically difficult and demonstrated aortic valve is not well visualized, valve type is not known, transvalvular velocities and mean gradient are similar to the reports from the outside hospital, there is moderate to severe mitral annular calcification, more prominent in the posterior annulus with moderate mitral stenosis. Mean gradient is 6 mmHg at heart rate of 84 bpm, left atrium is severely dilated, right ventricle is at the upper limits of normal in size; RV systolic function is normal, RVSP 43 mmHg based on an estimated right atrial pressure of 3 mm Hg. -Received amiodarone 150 mg bolus and 24 hour gtt per protocol. Per patient's cardiology group at [facility] held amiodarone as LFTs were elevating. Could consider restarting amiodarone at lower dose once LFTs have improved. -Received digoxin 250 mcg IV Q4H x 2 doses then discontinued as patient was cardioverted to sinus rhythm. -Patient had successful cardioversion x 2 to sinus rhythm but atrial fibrillation has since recurred. -Patient was rate controlled on carvedilol been reviewed acquired reduced dose due to blood pressure. She is now back in normal sinus rhythm. Restarted carvedilol at decreased dose of 3.125 mg twice daily. Will re-evaluate rhythm maintenance and balance with blood pressure. 4. Likely acute on chronic mild transaminitis, unclear if present on admission. Active. -Likely medication induced and related to amiodarone and acetaminophen versus fatty liver disease. -Per patient's cardiology group at [facility] held amiodarone as LFTs are elevating. Also held acetaminophen. -LFTs are trending downward, today's labs show total bilirubin of 1.6, AST of 93, ALT of 131 and alkaline phosphatase 122. . -Liver ultrasound demonstrated increased hepatic echogenicity most consistent with hepatic steatosis and gallbladder is mildly prominent with gallstones present but no gallbladder wall thickening, sonographic Chatman's sign, or pericholecystic fluid to suggest acute cholecystitis. 5. DJD status post right total arthroplasty, acute on chronic, present on admission. Improving. -Status post right total hip arthroplasty on 09/12. -Continue postoperative and pain management per Orthopedic surgery. -Implemented and continue bowel regimen. 6. Type 2 [place], not present on admission. Resolved. -Echocardiogram was technically difficult and demonstrated aortic valve is not well visualized, valve type is not known, transvalvular velocities and mean gradient are similar to the reports from the outside hospital, there is moderate to severe mitral annular calcification, more prominent in the posterior annulus with moderate mitral stenosis. Mean gradient is 6 mmHg at heart rate of 84 bpm, left atrium is severely dilated, right ventricle is at the upper limits of normal in size; RV systolic function is normal, RVSP 43 mmHg based on an estimated right atrial pressure of 3 mm Hg. -As anticipated patient had troponin leak due to demand ischemia in setting of atrial fibrillation with RVR and later had a cardioversion x2. -Patient denies chest pain or ACS symptoms. No need to further trend troponin. 7. CAD, chronic, present on admission. Stable. -Patient has history of CABG x1 vessel. -Patient endorsed lightheadedness and dizziness with diaphoresis due to arrhythmia which has resolved with cardioversion. Denies chest pain or ACS symptoms. -Initially held aspirin, carvedilol, and lisinopril due to hypotension related to acute blood loss as above. Carvedilol has since been resumed as above. Continue to hold aspirin and lisinopril. Continue rosuvastatin 40 mg at bedtime. 8. History of mechanical aortic valve, chronic, present admission. Stable. -Held warfarin as INR is supratherapeutic at 3.2. Discontinued Lovenox and held aspirin. Anticoagulation maintained with heparin drip. -Per patient's cardiology group at [facility], held amiodarone as LFTs are elevating and previous plan to restart at lower dose once LFTs have improved and held warfarin until bleeding stops. -INR was 1.3 this morning. In anticipation of surgery, heparin drip is stopped at 8:00 a.m.. Her Coumadin is being held today and will be restarted tomorrow if agreeable to orthopedics -Continue to monitor INR daily. Goal INR 2.0-3.0 after operative interventions. 9. Hyperlipidemia, chronic, present on admission. Stable. -Continue rosuvastatin 40 mg daily at bedtime and ezetimibe 10 mg daily at bedtime. 10. Hypothyroidism, chronic condition, present on admission, stable -TSH normal at 3.93. Continue levothyroxine 125 mcg daily. Full code. No formal health directive per patient, however patient designates her daughters Sharri and Angela, as surrogate decision makers. VTE prophylaxis: Warfarin and SCDs. Thank you for this most interesting consult. Medicine team will continue to follow along with you.
[2019-09-22 21:35] LABS: INR 1.4 (0.9-1.3); Prothrombin Time 16.2 SECONDS (10.1-12.7)
[2019-09-22] MEDS: PANTOPRAZOLE 40 MG TABLET PO (22:35)
[2019-09-22] MEDS: ROSUVASTATIN 10 MG TABLET 40 MG PO (22:35)
[2019-09-22] MEDS: DOCUSATE 100 MG CAPSULE PO (22:35)
[2019-09-22] MEDS: EZETIMIBE 10 MG TABLET PO (22:37)
[2019-09-22] MEDS: PRAMIPEXOLE 0.25 MG TABLET 0.75 MG PO (22:39)
--- NOTE | 2019-09-22 23:51 | PC.NURSE ---
Post-op notes: Patient back from surgery at 1915, transfered via hospital bed. She is awake, very pale, oriented to situation. Words sometimes slurred and daughter said she is goofy. RA oxygen 93-100% with continuous pulse ox monitoring. Encouraged deep breathing every hour. Denies pain to legs when resting in bed. Right hip with 2 TRAVON drsgs and 1 hemovac, all sites CDI, hemovac active & compressed with sero-sang in tubing/disc, 2 TRAVON drsg boxes blinking green lights. Patient can move R foot/toes slightly, otherwise said I can't move my leg. C/o L knee discomfort when repositioned, saying it's my bad knee. Calf SCD's on bilateral LE's. Pulses present. Hands cool to the touch, feet both warm. Denies nausea, tolerating jellow & pudding. Incontinent of extra large amt of urine, full linen gown/bed change done, extra pad placed by [employer] to help keep patient dry. IVF rate decreased to 75 ml/hour per order from Ayden RUSSELL, he was in room to talk with patient & her daughter about changes to care plan.
[2019-09-23] VITALS (9 sets, daily range): BP systolic 93–126; BP diastolic 45–75; PULSE 80–86; RESP 16–19; TEMP 36.1–37.2; O2SAT 96–98
[2019-09-23] MEDS: BACLOFEN 10 MG TABLET PO (00:34)
[2019-09-23] MEDS: TRAMADOL 50 MG TABLET 100 MG PO ×4 (00:37→22:58)
[2019-09-23] MEDS: CEFAZOLIN 2 GM/100 ML FROZ.PIGGY IV ×2 (01:22→08:57)
[2019-09-23 05:53] LABS: Hematocrit 27.1 % (36-46); Hemoglobin 9.3 g/dL (12.0-16.0)
[2019-09-23] MEDS: LEVOTHYROXINE 125 MCG TABLET PO (05:58)
[2019-09-23 06:02] LABS: Alanine Aminotransferase 97 IU/L (<35); Albumin 2.6 g/dL (3.5-5.0); Albumin Globulin Ratio 0.8 (1.0-2.8); Alkaline Phosphatase 118 U/L (38-126); Aspartate Aminotransferase 62 IU/L (14-36); Blood Urea Nitrogen 13 mg/dL (7-17); Calcium 7.7 mg/dL (8.4-10.2); Carbon Dioxide 32 mmol/L (22-32); Chloride 98 mmol/L (98-107); Estimated Glomerular Filt Rate > 60.0 mL/min (>60); Globulin 3.2 g/dL (1.7-4.1); Glucose 194 mg/dL (80-110); HEMOLYSIS < 15 (0-50); Potassium 3.9 mmol/L (3.4-5.1); Sodium 132 mmol/L (137-145); Total Protein 5.8 g/dL (6.3-8.2)
--- NOTE | 2019-09-23 08:01 | PC.NURSE ---
Addendum entered by Kaylah Sharif R.N. 09/23/19 12:52: Heparin bolus given and drip initiated (per protocol) after given ok from Dr Díaz to proceed. Serial PTT ordered Q6H, next due at 1830 today. Original Note: Heparin drip: This insurance underwriter sales aware of new order from Dr Díza for heparin drip. Per discussion w/ Dr Díaz at this time, hold starting the drip until she hears back from ortho.
[2019-09-23] MEDS: DOCUSATE 100 MG CAPSULE PO ×2 (08:57→22:00)
[2019-09-23] MEDS: carvediloL 3.125 MG TABLET PO ×2 (08:58→22:55)
[2019-09-23] MEDS: SODIUM CHLORIDE 0.9% FLUSH 10 ML IV ×2 (08:58→12:32)
[2019-09-23 09:06] LABS: INR 1.6 (0.9-1.3); Prothrombin Time 18.5 SECONDS (10.1-12.7)
--- NOTE | 2019-09-23 10:15 | PT.IPTN ---
Current Diagnoses Cutaneous abscess, unspecified (09/10/19) Unilateral primary osteoarthritis, right hip (09/10/19) Surgery Performed Operation Date: 09/10/19 07:45 Actual Procedures p Total Hip Arthroplasty(Right) - Rod Randhawa MD Operation Date: 09/22/19 16:00 Actual Procedures p Incision and Drainage S/P Hip(Right) - Rod Randhawa MD Physical Therapy Treatment Note M2 PT-IP Current Condition Start: 09/10/19 17:18 Freq: NEEDED Status: Active Protocol: Document 09/21/19 14:27 AW (Rec: 09/21/19 15:00 AW [id number]) Physical Therapy Current Condition Current Condition Evaluation Date 09/21/19 Treatment Diagnosis R PRIETO, a fib w/ RVR, impaired mobility Onset Date 09/10/19 Precautions Posterior Hip Precautions No Hip Flexion > 90 degrees,No Hip Internal Rotation,No Hip Adduction Weight Bearing Status Weight Bearing Status Weight Bear as Tolerated M3 PT-IP Subjective Start: 09/10/19 17:18 Freq: NEEDED Status: Active Protocol: Document 09/23/19 10:00 AW (Rec: 09/23/19 12:53 AW [email or web address]) Subjective Physical Therapy Visit Type Type Treatment Note Visit Start Time 09:21 Visit Stop Time 09:55 Total Visit Minutes 34 Notes Pt had I&D yesterday afternoon with 300cc hematoma evacuated . Physical Therapy Visit Comments Patient Comments Pt motivated and ready to work with PT Therapy Pain Assessment Pain When Pain Assessed During Mobility Pain Present Pain Present Pain Reported Location right hip Intensity 3 Scale Used Numeric (1 - 10) Pain Management Techniques Re-positioning,Timing of Activity with Medications M4 PT-IP Mobility and Gait Start: 09/10/19 17:18 Freq: NEEDED Status: Active Protocol: Document 09/23/19 10:00 AW (Rec: 09/23/19 12:53 AW [email or web address]) PT-Bed Mobility Assessment Supine to Sit Supine to Sit Moderate Assistance,1 Person Assistance,Head of Bed Elevated,Bedrails Scooting Scooting to Edge of Bed Moderate Assistance PT-Transfer Assessment Sit to and From Stand Sit to and from Stand Moderate Assistance,1 Person Assistance,Use of Upper Extremities Equipment Transfer Assistive Device Gait Belt,Front Wheeled Walker Orthotic/Prosthetic Devices or Brace: No Transfers Transfer Destination Bed,Chair Transfer Technique Stand Step Pivot Transfer Ability Level of Assist Moderate Assistance,1 Person Assistance,Use of Upper Extremities Comments Mobility Comments Pt sitting up in bed finishing breakfast upon PT arrival. She completed supine to sit mod A x 1 and sit to stand with FWW mod A x 1 with bed elevated ~2 inches from lowest position. She required mod A x 1 for transfer to chair where she was positioned with call light and table within reach and her daughter visiting in the room. Supine: BP 97/51 HR 85 Sitting: BP 117/70 HR 93 Gait Assessment Gait Gait Assistance Required: Minimum Assistance,1 Person Assist Distance (Feet) 3 Able to Maintain Weight Bearing Status Yes During Gait Assistive Devices Assistive Device Gait Belt,Front Wheeled Walker Orthotic/Prosthetic Devices or Brace: No Gait Deviations General Gait Pattern Antalgic,Decreased Stride Length,Decreased Feet Clearance,Flexed Trunk,Step-to Gait Factors Limiting Gait Function Factors Limiting Gait Function Decreased Activity Tolerance, Decreased Strength,Limited Range of Motion,Pain,Poor Balance Comments Gait Comments Pt walked with FWW and same degree of support as yesterday . She shows good attention to posterior hip precautions at all times. PT-Balance Assessment Sitting Balance and Reactions Static Sitting Balance Ability Good Dynamic Sitting Balance Ability Fair Standing Balance and Reactions Static Standing Balance Ability Fair Dynamic Standing Balance Ability Fair Device Used FWW M5 PT-IP Objective Assessments Start: 09/10/19 17:18 Freq: NEEDED Status: Active Protocol: Document 09/21/19 14:27 AW (Rec: 09/21/19 15:00 AW [id number]) Orientation Orientation/Cognition Level of Alertness Alert Orientation Name,Day of Week,Place, Situation Language Function Ability No Deficits Noted Safety Awareness Decreased Safety Awareness Memory Description Short Term Impaired Gross Range of Motion Upper Extremity ROM Assessment Within Functional Limits Lower Extremity ROM Assessment Bilaterally Impaired Impairments RLE tightness and increase guarding affecting PROM Strength Upper Extremity Strength Assessment Within Functional Limits Lower Extremity Strength Assessment Bilaterally Impaired Hip R: 3+/5 L: 4-/5 Knee R: 3-/5 L: 3+/5 Ankle B: 3+/5 Comments Strength Comments MMT limited secondary to pain Sensation Assessment Sensation Gross Sensation WNL M6 PT-IP Treatment Start: 09/10/19 17:18 Freq: NEEDED Status: Active Protocol: Document 09/23/19 10:00 AW (Rec: 09/23/19 12:53 AW [email or web address]) Physical Therapy Treatment Exercises Exercises Ankle Pumps,Gluteal Sets,Quad Sets,Heel Slides Other Treatments Other Treatment Performed Heel slides required decreased level of assist today with increased ROM. M7 PT-IP Assessment and Plan Start: 09/10/19 17:18 Freq: NEEDED Status: Active Protocol: Document 09/23/19 10:00 AW (Rec: 09/23/19 12:53 AW [email or web address]) PT Summary Assessment and Plan Potential Rehabilitation Potential Good Status of Condition at Evaluation Evolving Summary Impairments Pain,ROM,Strength,Balance, Coordination,Sensation,Tone, Cognition,Bed Mobility, Transfers,Gait,Activity Tolerance Progress Towards Goals Slow Progress due to Pain,Slow Progress due to Activity Tolerance Assessment Summary Glenys continues to show good effort with all activities, exhibiting positive self-talk with high motivation. She required decreased level of assist this date though the bed was slightly raised for sit to stand. She continues to be an excellent candidate for SNF rehab at discharge. Goals Bed Mobility Goal Minimal Assistance Transfer Goal Minimal Assistance,Front Wheeled Walker Gait Goal Minimal Assistance,Front Wheel Walker Gait Distance 75 Days to Meet Goals 10 Frequency of Treatment Frequency Of Treatment Twice a Day Treatment Plan Physical Therapy Treatment Plan Bed Mobility Training,Transfer Training,Gait Training, Therapeutic Exercise,Balance Retraining,Post Op Education, Discharge Planning,Hot or Cold Pack,Neuromuscular Re-ed, Coordination Retraining,Manual Therapy Other Recommendations and Next Treatment transfers, ambulate with FWW Focus and chair follow if able Recommendations To Nursing Amount of Assist Needed 2 Person Assist,3 or More Person Assist Discharge Recommendations PT Discharge Recommendations SNF Rehab
--- NOTE | 2019-09-23 11:06 | PM.PN.1 ---
Subjective Subjective Date Patient Seen: 09/23/19 Interval history: Patient is POD# 1 s/p incision and drainage, irrigation debridement right hip hematoma and POD#13 s/p right total hip arthroplasty with Dr. Randhawa. Pain has been mild to moderate with activity. She has mobilized a short amount with PT. She is in improved spirits as she is no longer on bedrest. Denies any chest pain, shortness of breath, nausea or vomiting. Exam Vital Signs (past 8 hours): - 09/23/19 05:00 09/23/19 08:16 09/23/19 08:22 Temperature 97.4 F L 97.0 F L Pulse Rate 86 86 Respiratory Rate 16 16 Blood Pressure 110/48 L 102/56 L Pulse Oximetry 97 96 97 Oxygen Delivery Method Room Air Oxygen Flow Rate 0 Narrative Exam Narrative: Pleasant 79 year old female resting in bed, alert and oriented in no acute distress. TRAVON dressing in place over the right hips is operational, CDI. Potor function intact in distal extremity. Calves soft, compressible. Palpable pedal pulse. Objective Labs Result Diagrams: 09/24/19 07:05 09/24/19 07:05 Labs: Laboratory Results - last 24 hr 09/22/19 09/23/19 09/23/19 21:19 05:05 05:05 Hgb 9.3 L Hct 27.1 L PT 16.2 H INR 1.4 H Sodium 132 L Potassium 3.9 Chloride 98 Carbon Dioxide 32 BUN 13 Creatinine 0.50 L Estimated GFR > 60.0 BUN/Creatinine Ratio 26.0 H Glucose 194 H Calcium 7.7 L Total Bilirubin 1.0 AST 62 H ALT 97 H Alkaline Phosphatase 118 Total Protein 5.8 L Albumin 2.6 L Globulin 3.2 Albumin/Globulin Ratio 0.8 L 09/23/19 08:12 Hgb Hct PT 18.5 H INR 1.6 H Sodium Potassium Chloride Carbon Dioxide BUN Creatinine Estimated GFR BUN/Creatinine Ratio Glucose Calcium Total Bilirubin AST ALT Alkaline Phosphatase Total Protein Albumin Globulin Albumin/Globulin Ratio Assessment & Plan Assessment & Plan narrative: Patient progressing as expected. Weight-bearing as tolerated and posterior hip precautions. Hemovac drain may be removed when drainage is less than 10 cc per shift. Encourage incentive spirometer. Appreciate hospitalist following her multiple medical issues. Discussed anticoagulation with the hospitalist, Dr. Díaz, and Dr. Rodin who agree she should be placed on Heparin. Will restart her Warfarin over the next few days.
[2019-09-23 12:24] LABS: PTT Partial Thromboplastin Tim 28 SECONDS (26.4-36.2)
[2019-09-23] MEDS: HEPARIN 5,000 UNIT/ML VIAL IV (12:30)
[2019-09-23] MEDS: HEPARIN DRIP 25,000 UNIT/500 ML IV.SOLN 20 UNIT IV (12:31)
--- NOTE | 2019-09-23 16:15 | OT.IP.EVAL ---
Current Diagnoses Cutaneous abscess, unspecified (09/10/19) Unilateral primary osteoarthritis, right hip (09/10/19) Surgery Performed Operation Date: 09/10/19 07:45 Actual Procedures p Total Hip Arthroplasty(Right) - Rod Randhawa MD Operation Date: 09/22/19 16:00 Actual Procedures p Incision and Drainage S/P Hip(Right) - Rod Randhawa MD Past Medical History (Last Reviewed 09/12/19 @ 23:18 by YVONNE Romero) CAD (coronary artery disease) (Acute) Cardiomyopathy (Acute) GERD (gastroesophageal reflux disease) (Acute) Glucose intolerance (Acute) Hearing impaired (Acute) HLD (hyperlipidemia) (Acute) HTN (hypertension) (Acute) Hypothyroidism (Acute) LBBB (left bundle branch block) (Acute) Nonrheumatic aortic (valve) stenosis (Acute) Osteoarthritis (Acute) Osteoporosis (Acute) Panic disorder (Acute) RLS (restless legs syndrome) (Acute) Systolic heart failure (Acute) T12 compression fracture (Acute 06/04/12) Urinary incontinence (Acute) Vertigo (Acute) Surgical History (Last Reviewed 09/12/19 @ 23:18 by YVONNE Romero) H/O: hysterectomy (Acute) History of aortic valve replacement (Acute ~2001) History of lumpectomy of right breast (Acute) Hx of bilateral cataract extraction (Acute) Hx of removal of cyst (Acute) Hx of tonsillectomy (Acute) S/P CABG x 1 (Acute ~2001) Occupational Therapy Inpatient Evaluation/Re-Eval M1 PT/OT-IP Prior Functional Status Start: 09/16/19 17:37 Freq: NEEDED Status: Active Protocol: Document 09/23/19 16:15 [facility] (Rec: 09/23/19 16:55 [facility] [id number]) Medical Review Prior Functional Status Medical History Reviewed Yes Communication Able to make needs known but with some confusion Mobility and Gait Pt stated that she is modified independent with all mobilities and ambulation using 2 canes Activities of Daily Living and IADL's Pt just needing assist to dry/ wash her feet and back, but otherwise was independent with ADL, IADL, medication and bills. Social History Household Members spouse,family Living Arrangements House Number of Floors (Floors) One Floor Number of Stairs To Enter/Railing? 1 step to enter Home Environment High Toilet,Tub/Shower Home Equipment Front Wheel Walker,Straight Cane,Tub Transfer Bench,Hand Held Shower,Grab Bars In Shower Additional Social History Comment Pt originally admitted 09/10/18 for R PRIETO and has had a protracted hospital course with cardiac complications. Pt originally planned to have her daughter stay with her to assist her as needed, but has since been open to considering SNF rehab at discharge. Pt has a toilet safety frame, an adjustable bed M2 OT-IP Current Condition Start: 09/16/19 17:37 Freq: Status: Active Protocol: Document 09/23/19 16:15 [facility] (Rec: 09/23/19 16:55 [facility] [id number]) Occupational Therapy Current Condition Current Condition Evaluation Date 09/23/19 Treatment Diagnosis s/p I and D of RTHA Diagnosis Onset Date 09/10/19 Post Operative Precautions Posterior Hip Precautions No Hip Flexion > 90 degrees,No Hip Internal Rotation,No Hip Adduction Weight Bearing Status Weight Bearing Status Weight Bear as Tolerated M3 OT- IP Subjective and Pain Start: 09/16/19 17:37 Freq: Status: Active Protocol: Document 09/23/19 16:15 [facility] (Rec: 09/23/19 16:55 [facility] [id number]) OT- Subjective Occupational Therapy Visit Type Type Initial Evaluation Visit Start Time 15:48 Visit Stop Time 16:15 Total Visit Minutes 27 Occupational Therapy Visit Comments Patient Comments Pt a bit sad as her dog had to be put down today, but agreeable to get up for OT/PT session. Patient/Caregiver Goals To go to rehab to get stronger and be able to care for herself. OT Pain Assessment Pain When Pain Assessed During Mobility Pain Present Pain Present Pain Reported Location right hip Intensity 2 Scale Used Numeric (1 - 10) M4 OT- IP ADL's Start: 09/16/19 17:37 Freq: Status: Active Protocol: Document 09/23/19 16:15 [facility] (Rec: 09/23/19 16:55 [facility] [id number]) OT [id number] Comments OT Self-Feeding Comments Not at meal time. OT ADL-Grooming Comments OT Grooming Comments Not performed. OT ADL-Dressing General Eval Lower Body Dressing Ability Total Assistance Areas Needing Assistance Socks OT ADL-Bathing Comments OT Bathing Comments NOt at this time. M5 OT- IP IADL's Start: 09/16/19 17:37 Freq: Status: Active Protocol: Document 09/23/19 16:15 [facility] (Rec: 09/23/19 16:55 [facility] [id number]) OT-Instrumental Activities of Daily Living Medication Management Medication Management Comments Prior pt able to do on her own , however pt's daughter that will be able to stay with her and assist. Money Management Money Management Comments Pt's daughter states will be assisting her. Meal Preparation Meal Preparation Caregiver Provides Assist [employer] Clerk [employer] Clerk Caregiver Provides Assist Driving Driving Caregiver Provides Assist M6 OT- IP Functional Cognition Start: 09/16/19 17:37 Freq: Status: Active Protocol: Document 09/23/19 16:15 [facility] (Rec: 09/23/19 16:55 [facility] [id number]) Cognitive Factors Limiting Selfcare Function Cognitive Ability Level of Alertness Alert Patient Orientation Name,Place,Situation Attention Span Ability Capable of Focused Attention, Unable to Sustain Attention Ability to Follow Commands Able to Follow One Step Commands with Increased Time, Able to Follow One Step Commands with Repetition Safety Awareness Underestimates Need for Assistance Problem Solving Ability Needs Assist to Identify Solutions Cognitive Comments Cognitive Assessment Comments Pt still needing step by step directions for bed mobility and to be able to be able to follow hip precautions. Pt a bit anxious about doing something wrong or gets focused /perseverates on topics. Pt' s initial BP low 91/52 and was worried that when she gets up that she will fall over. Pt needing constant reassurance that she will be okay and that the therapists are constantly monitoring and assisting her. OT- Vision and Hearing OT- Hearing Assessment OT- Hearing Assessment WFL M7 OT- IP Mobility and Balance Start: 09/16/19 17:37 Freq: Status: Active Protocol: Document 09/23/19 16:15 [facility] (Rec: 09/23/19 16:55 [facility] [id number]) OT- Bed Mobility Assessment Sit to Supine Sit to Supine Assist Maximum Assistance,2 Person Assistance OT-Transfer Assessment Sit to and From Stand Sit to and from Stand Moderate Assistance,2 Person Assistance Transfers Transfer Ability Moderate Assistance,2 Person Assistance Technique Transfer Destination Bed,Chair Devices Transfer Assistive Devices Gait Belt,Front Wheeled Walker Comments Mobility Comments Pt MODA X 2 to stand and able to transfer with FWW. Pt assist for balance and steadying. Once on her feet pt able to do better with FWW. OT- Balance Assessment Sitting Balance and Reactions Static Sitting Balance Ability Good Standing Balance and Reactions Static Standing Balance Ability Fair M8 OT- IP Objective Assessments Start: 09/16/19 17:37 Freq: Status: Active Protocol: Document 09/23/19 16:15 [facility] (Rec: 09/23/19 16:55 [facility] [id number]) OT Gross Range of Motion Upper Extremity Range of Motion Assessment Within Functional Limits OT Strength Comments Strength Comments From proximal to distal 4/5 to 4-/5. M9 OT- IP Assessment and Plan Start: 09/16/19 17:37 Freq: Status: Active Protocol: Document 09/23/19 16:15 [facility] (Rec: 09/23/19 16:55 [facility] [id number]) OT Summary Assessment and Plan Potential Rehabilitation Potential Good Analytic Complexity at Evaluation Low Summary OT Impairments Pain,Balance,Functional Cognition,Functional Mobility, Grooming,Dressing,Toileting, Bathing,Toilet Transfers, Shower Transfers,Activity Tolerance Progress Towards Goals Progressing Toward Goals,Slow Progress due to Activity Tolerance Assessment Summary Pt low complexity and s/p I and D to R PRIETO. Pt's barriers continue to be pain, step at home, and now needing extensive assist x2 for all Adl and functional mobility needs and to great of care for family to assist at this time . Therefore , pt would benefit from skilled rehab to maximize independence with all ADL, functional mobility and safety with incorporation of hip precautions for needs. Goals Grooming Goal Standby Assistance Dressing Goal Minimal Assistance Toileting Goal Moderate Assistance Bathing Goal Moderate Assistance Toilet Transfer Goal Minimal Assistance Shower Transfer Goal Minimal Assistance Patient/Caregiver Education Goal Demonstrate Post-Op Precautions,Caregiver Independent Assisting Patient Days to Meet Goals 10 Frequency of Treatment Frequency Of Treatment Once a Day Treatment Plan OT Treatment Plan ADL Training,Functional Cognition Training,Functional Mobility,Patient/Family Education,Discharge Planning Other Treatment Recommendations and Next Education of LB dressing Treatment Focus equipment needs. Discharge Recommendations OT Discharge Recommendations SNF Rehab Home Equipment Needs BSC Transportation Needs at Discharge Wheelchair/Cabulance
--- NOTE | 2019-09-23 16:26 | P.PN_ITS ---
Subjective Subjective Date Patient Seen: 09/23/19 Interval history: Glenys Munoz is a 79-year-old female with a past medical history significant for coronary artery disease status post CABG x1 vessel, cardiomyopathy, left bundle branch block, aortic stenosis status post mechanical aortic valve on warfarin, hypertension, hyperlipidemia, hypothyroidism, osteoarthritis, osteoporosis, restless leg syndrome, and morbid obesity who presented for elective right total hip arthroplasty. Medicine team was consulted to manage patient's atrial fibrillation with RVR, but has been involved with multiple medical issues over the course of her stay including acute blood loss secondary to anticoagulation for mechanical aortic valve and postoperative hypotension. The patient is resting in bedside chair comfortably. She continues to do well with physical and occupational therapy. She went to OR yesterday and had washout with evacuation of large hematoma. Restarted bridge with heparin gtt to prevent thrombosis of aortic mechanical valve. Her blood counts and blood pressure are stable and she is more awake and alert than previous days. The patient continues to to feel discouraged but is eager to continue rehabilitation. She has no complaints other than her chronic intermittent vertigo and denies headache, chest pain, shortness of breath, abdominal pain, nausea, vomiting, fever, chills, dysuria, diarrhea or constipation. She is voiding and eliminating without difficulty. Continue physical and occupational therapy. Exam Vital Signs (past 8 hours): - 09/23/19 12:10 09/23/19 15:44 Temperature 97.7 F 97.4 F L Pulse Rate 80 83 Respiratory Rate 16 18 Blood Pressure 105/48 L 93/49 L Pulse Oximetry 98 96 Oxygen Delivery Method Room Air Oxygen Flow Rate 0 Narrative Exam Narrative: General: Elderly morbidly obese female sitting in bedside chair and in no acute distress, well-developed, more awake and alert than previously, appropriately interactive. HEENT: Normocephalic, atraumatic. External ears without defect. Pupils equal, round, and reactive to light. Anicteric sclera, moist conjunctivae and no lid lag. Neck: Supple with full range of motion. No lymphadenopathy or thyromegaly. Cardiovascular: Regular rate and rhythm with ejection murmur. No rubs or gallops appreciated. Pulmonary: Clear to auscultation bilaterally without crackles, wheezes, or rhonchi. Normal respiratory effort with no use of accessory muscles. Abdomen: Soft, obese, bowel sounds present, nontender, nondistended. No hepatosplenomegaly or masses appreciated. Extremities: No clubbing or cyanosis. Bilateral lower extremity lipedema. Right hip with dressing in place C/D/I with surrounding ecchymoses and edema compared to left hip. Two drains in place with sanguinous fluid. Skin: Normal temperature, turgor, and texture; no rash, ulcers, or subcutaneous nodules appreciated. Neurological: Cranial nerves grossly intact. Psychiatric: Mildly anxious mood and normal affect. Alert and oriented to person, place, and time. Objective Labs Result Diagrams: 09/23/19 05:05 09/23/19 05:05 Labs: Laboratory Results - last 24 hr 09/22/19 09/23/19 09/23/19 21:19 05:05 05:05 Hgb 9.3 L Hct 27.1 L PT 16.2 H INR 1.4 H APTT Sodium 132 L Potassium 3.9 Chloride 98 Carbon Dioxide 32 BUN 13 Creatinine 0.50 L Estimated GFR > 60.0 BUN/Creatinine Ratio 26.0 H Glucose 194 H Calcium 7.7 L Total Bilirubin 1.0 AST 62 H ALT 97 H Alkaline Phosphatase 118 Total Protein 5.8 L Albumin 2.6 L Globulin 3.2 Albumin/Globulin Ratio 0.8 L 09/23/19 09/23/19 07:15 08:12 Hgb Hct PT 18.5 H INR 1.6 H APTT 28 D Sodium Potassium Chloride Carbon Dioxide BUN Creatinine Estimated GFR BUN/Creatinine Ratio Glucose Calcium Total Bilirubin AST ALT Alkaline Phosphatase Total Protein Albumin Globulin Albumin/Globulin Ratio Assessment & Plan Assessment & Plan narrative: Glenys Munoz is a 79-year-old female with a past medical history significant for coronary artery disease status post CABG x1 vessel, cardiomyopathy, left bundle branch block, aortic stenosis status post mechanical aortic valve on warfarin, hypertension, hyperlipidemia, hypothyroidism, osteoarthritis, osteoporosis, restless leg syndrome, and morbid obesity who presented for elective right total hip arthroplasty. Medicine team was consulted to manage patient's atrial fibrillation with RVR, but has been involved with multiple medical issues over the course of her stay including acute blood loss secondary to anticoagulation for mechanical aortic valve and postoperative hypotension. 1. Acute blood loss anemia, secondary to anticoagulation for mechanical aortic valve, now status post I&D with washout and evacuation of large hematoma, not present on admission. Active. -Patient is now status post I&D with washout and evacuation of large hematoma. -Patient has received a total of 5 units PRBC. -Continue to monitor H&H closely. Transfusion goal hemoglobin < 8.0. -Iron panel demonstrated iron deficiency anemia. Received Venofer 200 mg x 1. Continue ferrous gluconate 324 mg daily. 2. Acute postoperative hypotension in setting of chronic hypertension, not present on admission. Resolved. -Patient was hypotensive due to acute blood loss as below and decreased PO intake. Her blood pressure improved with IV fluid and PRBCs administration. -Discontinued IV fluids as patient is adequately hydrated. Patient has received a total of 5 units PRBC. -Initially held antihypertensives including carvedilol 25 mg twice daily and lisinopril 5 mg daily at bedtime. Restarted carvedilol at decreased dose due to labile blood pressure from 25 mg to 3.125 mg twice daily for heart rate control. Continue to hold lisinopril 5 mg daily at bedtime. 3. Paroxysmal atrial fibrillation with RVR, not present on admission. RVR resolved. -Patient had atrial fibrillation following 1st hip surgery with instability requiring cardioversion. Rhythm is been resistant for extent. Now stable in sinus rhythm. -TSH within normal limits. -Electrolytes within normal limits. Continue to monitor electrolytes closely and replete as necessary. Goal K > 4.0 and Mg > 2.0. -Echocardiogram was technically difficult and demonstrated aortic valve is not well visualized, valve type is not known, transvalvular velocities and mean gradient are similar to the reports from the outside hospital, there is moderate to severe mitral annular calcification, more prominent in the posterior annulus with moderate mitral stenosis. Mean gradient is 6 mmHg at heart rate of 84 bpm, left atrium is severely dilated, right ventricle is at the upper limits of normal in size; RV systolic function is normal, RVSP 43 mmHg based on an estimated right atrial pressure of 3 mm Hg. -Received amiodarone 150 mg bolus and 24 hour gtt per protocol. Per patient's cardiology group at [facility] held amiodarone as LFTs were elevating. Could consider restarting amiodarone at lower dose once LFTs have improved. -Received digoxin 250 mcg IV Q4H x 2 doses then discontinued as patient was cardioverted to sinus rhythm. -Patient had successful cardioversion x 2 to sinus rhythm and has since went into and out of atrial fibrillation. -Restarted carvedilol at decreased dose due to labile blood pressure from 25 mg to 3.125 mg twice daily for heart rate control. Continue to re-evaluate rate control and adjust dose as necessary. 4. History of mechanical aortic valve, chronic, present admission. Stable. -INR 1.6. Restarted heparin gtt to bridge until warfarin is restarted per ortho. Per cardiology a piece -Continue to monitor INR daily. Goal INR 2.0-3.0. 5. Likely acute on chronic mild transaminitis, unclear if present on admission. Resolving. -Likely medication induced and related to amiodarone and acetaminophen versus fatty liver disease. -Per patient's cardiology group at [facility] held amiodarone as LFTs are elevating. Also held acetaminophen. -LFTs continue to trend downward. -Liver ultrasound demonstrated increased hepatic echogenicity most consistent with hepatic steatosis and gallbladder is mildly prominent with gallstones present but no gallbladder wall thickening, sonographic Chatman's sign, or pericholecystic fluid to suggest acute cholecystitis. 6. DJD status post right total arthroplasty, acute on chronic, present on admission. Improving. -Status post right total hip arthroplasty on 09/12 and I&D with washout and evacuation of hematoma on 09/22/2019. -Continue postoperative and pain management per Orthopedic surgery. -Implemented and continue bowel regimen. 7. Type 2 HI, not present on admission. Resolved. -Echocardiogram was technically difficult and demonstrated aortic valve is not well visualized, valve type is not known, transvalvular velocities and mean gradient are similar to the reports from the outside hospital, there is moderate to severe mitral annular calcification, more prominent in the posterior annulus with moderate mitral stenosis. Mean gradient is 6 mmHg at heart rate of 84 bpm, left atrium is severely dilated, right ventricle is at the upper limits of normal in size; RV systolic function is normal, RVSP 43 mmHg based on an estimated right atrial pressure of 3 mm Hg. -As anticipated patient had troponin leak due to demand ischemia in setting of atrial fibrillation with RVR and later had a cardioversion x2. -Patient denies chest pain or ACS symptoms. No need to further trend troponin. 8. CAD, chronic, present on admission. Stable. -Patient has history of CABG x1 vessel. -Patient endorsed lightheadedness and dizziness with diaphoresis due to arrhythmia which has resolved with cardioversion. Denies chest pain or ACS symptoms. -Initially held aspirin, carvedilol, and lisinopril due to hypotension related to acute blood loss as above. Carvedilol has since been resumed as above. Continue to hold aspirin and lisinopril. Continue rosuvastatin 40 mg at bedtime. 9. Hyperlipidemia, chronic, present on admission. Stable. -Continue rosuvastatin 40 mg daily at bedtime and ezetimibe 10 mg daily at bed time. 10. Hypothyroidism, chronic condition, present on admission, stable -TSH normal at 3.93. Continue levothyroxine 125 mcg daily. Code status: Full code. No formal health directive per patient, however patient designates her daughters Sharri and Angela, as surrogate decision makers. VTE prophylaxis: Warfarin and SCDs. Thank you for this most interesting consult. Medicine team will continue to follow along with you.
--- NOTE | 2019-09-23 16:31 | PT.IPTN ---
Current Diagnoses Cutaneous abscess, unspecified (09/10/19) Unilateral primary osteoarthritis, right hip (09/10/19) Surgery Performed Operation Date: 09/10/19 07:45 Actual Procedures p Total Hip Arthroplasty(Right) - Rod Randhawa MD Operation Date: 09/22/19 16:00 Actual Procedures p Incision and Drainage S/P Hip(Right) - Rod Randhawa MD Physical Therapy Treatment Note M2 PT-IP Current Condition Start: 09/10/19 17:18 Freq: NEEDED Status: Active Protocol: Document 09/21/19 14:27 AW (Rec: 09/21/19 15:00 AW [id number]) Physical Therapy Current Condition Current Condition Evaluation Date 09/21/19 Treatment Diagnosis R PRIETO, a fib w/ RVR, impaired mobility Onset Date 09/10/19 Precautions Posterior Hip Precautions No Hip Flexion > 90 degrees,No Hip Internal Rotation,No Hip Adduction Weight Bearing Status Weight Bearing Status Weight Bear as Tolerated M3 PT-IP Subjective Start: 09/10/19 17:18 Freq: NEEDED Status: Active Protocol: Document 09/23/19 16:17 AW (Rec: 09/23/19 16:29 AW [id number]) Subjective Physical Therapy Visit Type Type Treatment Note Visit Start Time 15:47 Visit Stop Time 16:12 Total Visit Minutes 25 Notes Co-treat with OT Physical Therapy Visit Comments Patient Comments Pt willing to work with therapy Patient Goals Pt anticipates discharge to [facility] Therapy Pain Assessment Pain When Pain Assessed At Rest Pain Present Pain Present Pain Reported Location right hip Intensity 2 Scale Used pt states 1.5/10 at rest Pain Management Techniques Re-positioning,Timing of Activity with Medications M4 PT-IP Mobility and Gait Start: 09/10/19 17:18 Freq: NEEDED Status: Active Protocol: Document 09/23/19 16:17 AW (Rec: 09/23/19 16:29 AW [id number]) PT-Bed Mobility Assessment Supine to Sit Supine to Sit Moderate Assistance,2 Person Assistance,Head of Bed Elevated,Bedrails Scooting Scooting to Edge of Bed Moderate Assistance PT-Transfer Assessment Sit to and From Stand Sit to and from Stand Moderate Assistance,1 Person Assistance,Use of Upper Extremities Equipment Transfer Assistive Device Gait Belt,Front Wheeled Walker Orthotic/Prosthetic Devices or Brace: No Transfers Transfer Destination Chair Transfer Technique Stand Step Pivot Transfer Ability Level of Assist Minimal Assistance,1 Person Assistance,Use of Upper Extremities Comments Mobility Comments Pt had returned to bed after AM session, willing to get up to chair again anticipating dinner. She completed supine to sit mod A x 2 and sit to stand mod A x 1 with extra person available for safety. She was able to verbalize all her hip precautions and was thoughtful about maintaining them during mobility. She transferred to the chair min A x 1 with cues for sequencing, in particular to position her right leg relative to her trunk. She was positioned in the chair with careful attention to right hip rotation, call light and table within reach. Supine: BP 91/52 HR 83 Sitting: BP 127/72 HR 90 Sitting after transfer: BP 126 /75 HR 87 Gait Assessment Gait Gait Assistance Required: Minimum Assistance,1 Person Assist Distance (Feet) 3 Able to Maintain Weight Bearing Status Yes During Gait Assistive Devices Assistive Device Gait Belt,Front Wheeled Walker Orthotic/Prosthetic Devices or Brace: No Gait Deviations General Gait Pattern Antalgic,Decreased Stride Length,Decreased Feet Clearance,Flexed Trunk,Step-to Gait Factors Limiting Gait Function Factors Limiting Gait Function Decreased Activity Tolerance, Decreased Strength,Limited Range of Motion,Pain,Poor Balance Comments Gait Comments See mobility comments. Transfer only. M5 PT-IP Objective Assessments Start: 09/10/19 17:18 Freq: NEEDED Status: Active Protocol: Document 09/21/19 14:27 AW (Rec: 09/21/19 15:00 AW [id number]) Orientation Orientation/Cognition Level of Alertness Alert Orientation Name,Day of Week,Place, Situation Language Function Ability No Deficits Noted Safety Awareness Decreased Safety Awareness Memory Description Short Term Impaired Gross Range of Motion Upper Extremity ROM Assessment Within Functional Limits Lower Extremity ROM Assessment Bilaterally Impaired Impairments RLE tightness and increase guarding affecting PROM Strength Upper Extremity Strength Assessment Within Functional Limits Lower Extremity Strength Assessment Bilaterally Impaired Hip R: 3+/5 L: 4-/5 Knee R: 3-/5 L: 3+/5 Ankle B: 3+/5 Comments Strength Comments MMT limited secondary to pain Sensation Assessment Sensation Gross Sensation WNL M6 PT-IP Treatment Start: 09/10/19 17:18 Freq: NEEDED Status: Active Protocol: Document 09/23/19 16:17 AW (Rec: 09/23/19 16:29 AW [id number]) Physical Therapy Treatment Education Education Provided Precautions,Weight Bearing Status,Safety M7 PT-IP Assessment and Plan Start: 09/10/19 17:18 Freq: NEEDED Status: Active Protocol: Document 09/23/19 16:17 AW (Rec: 09/23/19 16:29 AW [id number]) PT Summary Assessment and Plan Summary Impairments Pain,ROM,Strength,Balance, Coordination,Sensation,Tone, Cognition,Bed Mobility, Transfers,Gait,Activity Tolerance Progress Towards Goals Slow Progress due to Pain,Slow Progress - Other Assessment Summary Improved hemodynamic response to activity this date. Glenys acknowledges she is a worrier. Her anxiety regarding posterior hip precautions is somewhat elevated but does assist in maintaining them while moving. Recommend she exit the right side of the bed next session and walk around to the chair in order to increase her confidence. Goals Bed Mobility Goal Minimal Assistance Transfer Goal Minimal Assistance,Front Wheeled Walker Gait Goal Minimal Assistance,Front Wheel Walker Gait Distance 75 Days to Meet Goals 10 Frequency of Treatment Frequency Of Treatment Twice a Day Treatment Plan Physical Therapy Treatment Plan Bed Mobility Training,Transfer Training,Gait Training, Therapeutic Exercise,Balance Retraining,Post Op Education, Discharge Planning,Hot or Cold Pack,Neuromuscular Re-ed, Coordination Retraining,Manual Therapy Other Recommendations and Next Treatment progress ambulation distance ( Focus with chair follow if needed), review ther ex Recommendations To Nursing Amount of Assist Needed 2 Person Assist Discharge Recommendations PT Discharge Recommendations SNF Rehab Transportation Needs at Discharge Wheelchair/Cabulance
[2019-09-23] MEDS: PRAMIPEXOLE 0.25 MG TABLET 0.75 MG PO (18:30)
[2019-09-23 19:09] LABS: PTT Partial Thromboplastin Tim 53 SECONDS (26.4-36.2)
[2019-09-23] MEDS: ROSUVASTATIN 10 MG TABLET 40 MG PO (22:00)
[2019-09-23] MEDS: NYSTATIN CREAM 30 GM 1 APPLIC TOP (22:00)
[2019-09-23] MEDS: PANTOPRAZOLE 40 MG TABLET PO (22:00)
[2019-09-23] MEDS: EZETIMIBE 10 MG TABLET PO (22:00)
--- NOTE | 2019-09-23 23:59 | PC.NURSE ---
PTT drawn shortly after 183 was 53, per protocol there is no change to infusion rate, still infusing at 1000 u/hour or 20 ml/hour. No signs of active bleeding tonight, does have fair amt of bruising to arms from IV pokes & blood draws. Legs edematous with 2+ pitting puffy edema, R>L, after patient sat up in recliner for 2 hours, unable to attach bottom velcro tab of SCD's. SCD's on and working OK with 2 proximal tabs connected. Moving feet, unable to move her RLE, requesting that nursing move her leg for her. Did transfer from recliner to her bed earlier this evening with 2 max assist/fww/gait belt, slow mobility but able to take steps & safely transfer with nursing. Incontinent of urine. Good appetite tonight, cheeks pink with color. Has yeast-like pink rash and cracked skin to abdomen folds, nystatin creme applied per new order. Patient remains oriented x 3 & situation, daughter rooming in with her tonight. Has been repositioned [id number] q1-2 hours tonight. Fall precautions in place, alarm active for safety. BP's are low tonight, 93/49, after transfer to recliner BP taken by PT was 126/75. After getting back to bed and dozing a while, BP dropped again to 94/52. I notified Antonette RUSSELL about patient's low BP's tonight, he said to go ahead & give tonight's Coreg which I did.
[2019-09-24] VITALS (11 sets, daily range): BP systolic 91–196; BP diastolic 48–89; PULSE 76–94; RESP 16–20; TEMP 36.3–37.1; O2SAT 95–98
[2019-09-24 00:42] LABS: PTT Partial Thromboplastin Tim 47 SECONDS (26.4-36.2)
[2019-09-24] MEDS: LEVOTHYROXINE 125 MCG TABLET PO (04:58)
[2019-09-24] MEDS: TRAMADOL 50 MG TABLET 100 MG PO (05:02)
[2019-09-24 07:17] LABS: Add Manual Diff / Slide Review NO; Basophils Absolute Auto 100 /uL (0-100); Basophils Percent Auto 0.9 % (0-2); Eosinophils Absolute Auto 400 /uL (0-450); Eosinophils Percent Auto 2.9 % (2-4); Hematocrit 26.1 % (36-46); Hemoglobin 8.7 g/dL (12.0-16.0); Lymphocytes Absolute Auto 2600 /uL (1100-4500); Lymphocytes Percent Auto 20.4 % (25-40); Mean Corpuscular HGB Conc 33.3 % (30-36); Mean Corpuscular Hemoglobin 32.1 PG (26-34); Mean Corpuscular Volume 96.4 fL (80-100); Monocytes Absolute Auto 1100 /uL (0-900); Monocytes Percent Auto 8.6 % (3-14); Neutrophils Absolute Auto 8700 /uL (1500-7000); Neutrophils Percent Auto 67.2 % (50-75); Platelet Count 571 X10^3/uL (150-400); Red Cell Distribution Width 16.3 % (11.6-14.8); White Blood Cell Count 12.9 X10^3/uL (4.5-11.0)
[2019-09-24 07:28] LABS: PTT Partial Thromboplastin Tim 48 SECONDS (26.4-36.2)
[2019-09-24 07:38] LABS: Blood Urea Nitrogen 12 mg/dL (7-17); Calcium 7.6 mg/dL (8.4-10.2); Carbon Dioxide 31 mmol/L (22-32); Chloride 97 mmol/L (98-107); Estimated Glomerular Filt Rate > 60.0 mL/min (>60); Glucose 111 mg/dL (80-110); HEMOLYSIS < 15 (0-50); Potassium 3.7 mmol/L (3.4-5.1); Sodium 131 mmol/L (137-145)
--- NOTE | 2019-09-24 09:31 | OT.IP.TRT ---
Current Diagnoses Cutaneous abscess, unspecified (09/10/19) Unilateral primary osteoarthritis, right hip (09/10/19) Surgery Performed Operation Date: 09/10/19 07:45 Actual Procedures p Total Hip Arthroplasty(Right) - Rod Randhawa MD Operation Date: 09/22/19 16:00 Actual Procedures p Incision and Drainage S/P Hip(Right) - Rod Randhawa MD Occupational Therapy Treatment Note M2 OT-IP Current Condition Start: 09/16/19 17:37 Freq: Status: Active Protocol: Document 09/23/19 16:15 [facility] (Rec: 09/23/19 16:55 [facility] [id number]) Occupational Therapy Current Condition Current Condition Evaluation Date 09/23/19 Treatment Diagnosis s/p I and D of RTHA Diagnosis Onset Date 09/10/19 Post Operative Precautions Posterior Hip Precautions No Hip Flexion > 90 degrees,No Hip Internal Rotation,No Hip Adduction Weight Bearing Status Weight Bearing Status Weight Bear as Tolerated M3 OT- IP Subjective and Pain Start: 09/16/19 17:37 Freq: Status: Active Protocol: Document 09/24/19 10:45 [facility] (Rec: 09/24/19 10:58 [facility] [id number]) OT- Subjective Occupational Therapy Visit Type Type Treatment Note Visit Start Time 09:31 Visit Stop Time 10:23 Total Visit Minutes 52 Occupational Therapy Visit Comments Patient Comments Pt wiling ot get up to try to use the BSC. LABEL DESIGNER present as pt needing extensive need of assist for bed mobility. Pt's daughter present initially. Patient/Caregiver Goals To be able to take care of herself. OT Pain Assessment Pain When Pain Assessed At Rest Pain Present Pain Present Denied Pain M4 OT- IP ADL's Start: 09/16/19 17:37 Freq: Status: Active Protocol: Document 09/24/19 10:45 [facility] (Rec: 09/24/19 10:58 [facility] [id number]) OT [id number] Comments OT Self-Feeding Comments Not at meal time. OT ADL-Grooming General Evaluation Grooming Ability Standby Assistance Comments OT Grooming Comments Able to lesia her face. OT ADL-Oral Care Comments Oral Care Comments Not performed. OT ADL-Dressing General Eval Lower Body Dressing Ability Total Assistance Areas Needing Assistance Socks OT ADL-Toileting General Evaluation Toileting Ability Total Assistance Areas Needing Assistance Manage Clothing,Perform Perineal Hygiene Devices Toileting Assistive Devices Commode Comments OT Toileting Comments MODA x1 to help stand pt while another person assist with all hygiene and brief management needs. Nursing notified of skin opening and that pt wanting medication for skin underneath her abdomen. OT ADL-Bathing Bathing Type Bathing Type Sponge Bath General Evaluation Bathing Ability Maximal Assistance Areas Needing Assistance Wash/Dry Back,Wash/Dry Perineal Area Comments OT Bathing Comments Pt ken ot assist to wash her face, arms, and chest during sponge bathing needs. M5 OT- IP IADL's Start: 09/16/19 17:37 Freq: Status: Active Protocol: Document 09/23/19 16:15 [facility] (Rec: 09/23/19 16:55 [facility] [id number]) OT-Instrumental Activities of Daily Living Medication Management Medication Management Comments Prior pt able to do on her own , however pt's daughter that will be able to stay with her and assist. Money Management Money Management Comments Pt's daughter states will be assisting her. Meal Preparation Meal Preparation Caregiver Provides Assist Pharmacy Analyst Pharmacy Analyst Caregiver Provides Assist Driving Driving Caregiver Provides Assist M6 OT- IP Functional Cognition Start: 09/16/19 17:37 Freq: Status: Active Protocol: Document 09/24/19 10:45 [facility] (Rec: 09/24/19 10:58 [facility] [id number]) Cognitive Factors Limiting Selfcare Function Cognitive Ability Level of Alertness Alert Patient Orientation Name,Place,Situation Attention Span Ability Capable of Focused Attention, Unable to Sustain Attention Ability to Follow Commands Able to Follow One Step Commands with Increased Time, Able to Follow One Step Commands with Repetition Safety Awareness Underestimates Need for Assistance Problem Solving Ability Needs Assist to Identify Solutions Cognitive Comments Cognitive Assessment Comments Pt doing better to stay focused and following directions and not trying to perseverate on her blood pressure. Pt still needing encouragement but overall doing better to actively participate in therapy today. M7 OT- IP Mobility and Balance Start: 09/16/19 17:37 Freq: Status: Active Protocol: Document 09/24/19 10:45 [facility] (Rec: 09/24/19 10:58 [facility] [id number]) OT- Bed Mobility Assessment Sit to Supine Sit to Supine Assist Maximum Assistance,2 Person Assistance OT-Transfer Assessment Sit to and From Stand Sit to and from Stand Standby Assistance,Moderate Assistance,2 Person Assistance Transfers Transfer Ability Standby Assistance,Moderate Assistance,2 Person Assistance Technique Transfer Destination Bed,Chair Devices Transfer Assistive Devices Gait Belt,Front Wheeled Walker Comments Mobility Comments Much improved sit to stand MODA X 1 and another person for SBA to help manage all tubing/cords. Pt more steady on her feet with FWW and able to transfer to BSC and then recliner. OT- Balance Assessment Sitting Balance and Reactions Static Sitting Balance Ability Good Standing Balance and Reactions Static Standing Balance Ability Fair M8 OT- IP Objective Assessments Start: 09/16/19 17:37 Freq: Status: Active Protocol: Document 09/23/19 16:15 [facility] (Rec: 09/23/19 16:55 [facility] [id number]) OT Gross Range of Motion Upper Extremity Range of Motion Assessment Within Functional Limits OT Strength Comments Strength Comments From proxiaml to distal 4/5 to 4-/5. M9 OT- IP Assessment and Plan Start: 09/16/19 17:37 Freq: Status: Active Protocol: Document 09/24/19 10:45 [facility] (Rec: 09/24/19 10:58 [facility] [id number]) OT Summary Assessment and Plan Potential Rehabilitation Potential Good Analytic Complexity at Evaluation Low Summary OT Impairments Pain,Balance,Functional Cognition,Functional Mobility, Grooming,Dressing,Toileting, Bathing,Toilet Transfers, Shower Transfers,Activity Tolerance Progress Towards Goals Progressing Toward Goals Assessment Summary Pt able to tolerate BSC and transfer to recliner in addition to sponge bath. Pt motivated to participate in therapy and needing less encouragement today. When medically stable to go to skilled rehab. Goals Grooming Goal Standby Assistance Dressing Goal Minimal Assistance Toileting Goal Moderate Assistance Bathing Goal Moderate Assistance Toilet Transfer Goal Minimal Assistance Shower Transfer Goal Minimal Assistance Patient/Caregiver Education Goal Demonstrate Post-Op Precautions,Caregiver Independent Assisting Patient Days to Meet Goals 5 Frequency of Treatment Frequency Of Treatment Once a Day Treatment Plan OT Treatment Plan ADL Training,Functional Cognition Training,Functional Mobility,Patient/Family Education,Discharge Planning Other Treatment Recommendations and Next Education of LB dressing Treatment Focus equipment needs. Discharge Recommendations OT Discharge Recommendations SNF Rehab Home Equipment Needs BSC Transportation Needs at Discharge Wheelchair/Cabulance
--- NOTE | 2019-09-24 09:35 | P.PN_ITS ---
Subjective Subjective Date Patient Seen: 09/24/19 Time Patient Seen: 09:35 Interval history: Pain moderate. Denies fever chills. No nausea vomiting. Exam Vital Signs (past 8 hours): - 09/24/19 03:09 09/24/19 08:01 Temperature 97.3 F L Pulse Rate 79 82 Respiratory Rate 20 16 Blood Pressure 99/52 L 103/53 L Pulse Oximetry 98 96 Oxygen Delivery Method Room Air Oxygen Flow Rate 0 Drain output 25 mL last shift Narrative Exam Narrative: 79-year-old female resting comfortably in bed in no apparent distress. Merlene dressing on and functioning. Dressing is clean, dry and intact. Motor functions intact distal right lower extremity. Sensation grossly intact to light touch. Both legs are warm and dry. Objective Labs Result Diagrams: 09/24/19 07:05 09/24/19 07:05 Labs: Laboratory Results - last 24 hr 09/23/19 09/23/19 09/24/19 07:15 18:52 00:22 WBC RBC Hgb Hct MCV MCH MCHC RDW Plt Count Neut % (Auto) Lymph % (Auto) [place] % (Auto) Eos % (Auto) Baso % (Auto) Neut # (Auto) Lymph # (Auto) [place] # (Auto) Eos # (Auto) Baso # (Auto) APTT 28 D 53 H D 47 H D Sodium Potassium Chloride Carbon Dioxide BUN Creatinine Estimated GFR BUN/Creatinine Ratio Glucose Calcium 09/24/19 09/24/19 09/24/19 07:05 07:05 07:05 WBC 12.9 H RBC 2.70 L Hgb 8.7 L Hct 26.1 L MCV 96.4 MCH 32.1 MCHC 33.3 RDW 16.3 H Plt Count 571 H Neut % (Auto) 67.2 Lymph % (Auto) 20.4 L [place] % (Auto) 8.6 Eos % (Auto) 2.9 Baso % (Auto) 0.9 Neut # (Auto) 8700 H Lymph # (Auto) 2600 [place] # (Auto) 1100 H Eos # (Auto) 400 Baso # (Auto) 100 APTT 48 H Sodium 131 L Potassium 3.7 Chloride 97 L Carbon Dioxide 31 BUN 12 Creatinine 0.40 L Estimated GFR > 60.0 BUN/Creatinine Ratio 30.0 H Glucose 111 H Calcium 7.6 L Assessment & Plan Post-op Postoperative Procedures: Procedures Operation Date: 09/10/19 07:45 Actual Procedures Side Surgeon p Total Hip Arthroplasty Right Rod Randhawa MD Operation Date: 09/22/19 16:00 Actual Procedures Side Surgeon p Incision and Drainage S/P Hip Right Rod Randhawa MD Status post incision and drainage, irrigation debridement right hip hematoma F ebruary 2019. Status post right total hip arthroplasty September 10, 2019. Weight-bearing as tolerated and posterior hip precautions. Hemovac drain may be removed when drainage is less than 10 cc per shift. Encourage incentive spirometer. Appreciate hospitalist following her multiple medical issues. We will discuss placing patient back on her Coumadin with hospitalist.
[2019-09-24 09:38] LABS: PTT Partial Thromboplastin Tim 45 SECONDS (26.4-36.2)
--- NOTE | 2019-09-24 09:49 | PM.PN.1 ---
Subjective Subjective Date Patient Seen: 09/24/19 Interval history: Glenys Munoz is a 79-year-old female with a past medical history significant for coronary artery disease status post CABG x1 vessel, cardiomyopathy, left bundle branch block, aortic stenosis status post mechanical aortic valve on warfarin, hypertension, hyperlipidemia, hypothyroidism, osteoarthritis, osteoporosis, restless leg syndrome, and morbid obesity who presented for elective right total hip arthroplasty. Medicine team was consulted to manage patient's atrial fibrillation with RVR, but has been involved with multiple medical issues over the course of her stay including acute blood loss secondary to anticoagulation for mechanical aortic valve and postoperative hypotension. The patient is lying in bed and appears comfortable. She endorses chills and her cheeks are slightly flushed. She reports she did not get much sleep last night and was up until 3:00 then slept til 6:00 and has been awake since. She also believes that she is increasingly edematous in her legs and face which have now improved. She endorses trying to drink more water. The patient's blood pressure is labile, therefore, unable to chemically diurese. Plan to have patient elevate lower extremities frequently and continue to mobilize with physical therapy as tolerated. She reports she really pushed herself today with physical therapy. Continue bridging patient with heparin gtt to prevent thrombosis of aortic mechanical valve and plan to restart warfarin tonight. Her blood counts and blood pressure are stable and her Hemovac drains have minimal output. She had mild dysuria after Hamilton catheter was removed and has since resolved. She has no complaints and denies headache, chest pain, shortness of breath, abdominal pain, nausea, vomiting, fever, chills, dysuria, diarrhea or constipation. She is incontinent but voiding and eliminating without difficulty. Continue physical and occupational therapy. Exam Vital Signs (past 8 hours): - 09/24/19 03:09 09/24/19 08:01 09/24/19 09:18 Temperature 97.3 F L 98.8 F Pulse Rate 79 82 85 Respiratory Rate 20 16 17 Blood Pressure 99/52 L 103/53 L 97/48 L Pulse Oximetry 98 96 96 Oxygen Delivery Method Room Air Oxygen Flow Rate 0 Narrative Exam Narrative: General: Elderly morbidly obese female sitting in bedside chair and in no acute distress, well-developed, more awake and alert than previously, appropriately interactive. HEENT: Normocephalic, atraumatic. External ears without defect. Pupils equal, round, and reactive to light. Anicteric sclera, moist conjunctivae and no lid lag. Neck: Supple with full range of motion. No lymphadenopathy or thyromegaly. Cardiovascular: Regular rate and rhythm with ejection murmur. No rubs or gallops appreciated. Pulmonary: Clear to auscultation bilaterally without crackles, wheezes, or rhonchi. Normal respiratory effort with no use of accessory muscles. Abdomen: Soft, obese, bowel sounds present, nontender, nondistended. No hepatosplenomegaly or masses appreciated. Extremities: No clubbing or cyanosis. Bilateral lower extremity lipedema with bipedal edema. Right hip with dressing in place C/D/I with surrounding minimal and improved ecchymoses and edema. Two drains in place with minimal sanguinous fluid. Skin: Normal temperature, turgor, and texture; no rash, ulcers, or subcutaneous nodules appreciated. Neurological: Cranial nerves grossly intact. Psychiatric: Anxious mood and normal affect. Alert and oriented to person, place, and time. Objective Labs Result Diagrams: 09/24/19 14:30 09/24/19 07:05 Labs: Laboratory Results - last 24 hr 09/23/19 09/23/19 09/24/19 07:15 18:52 00:22 WBC RBC Hgb Hct MCV MCH MCHC RDW Plt Count Neut % (Auto) Lymph % (Auto) [place] % (Auto) Eos % (Auto) Baso % (Auto) Neut # (Auto) Lymph # (Auto) [place] # (Auto) Eos # (Auto) Baso # (Auto) APTT 28 D 53 H D 47 H D Sodium Potassium Chloride Carbon Dioxide BUN Creatinine Estimated GFR BUN/Creatinine Ratio Glucose Calcium 09/24/19 09/24/19 09/24/19 07:05 07:05 07:05 WBC 12.9 H RBC 2.70 L Hgb 8.7 L Hct 26.1 L MCV 96.4 MCH 32.1 MCHC 33.3 RDW 16.3 H Plt Count 571 H Neut % (Auto) 67.2 Lymph % (Auto) 20.4 L [place] % (Auto) 8.6 Eos % (Auto) 2.9 Baso % (Auto) 0.9 Neut # (Auto) 8700 H Lymph # (Auto) 2600 [place] # (Auto) 1100 H Eos # (Auto) 400 Baso # (Auto) 100 APTT 48 H Sodium 131 L Potassium 3.7 Chloride 97 L Carbon Dioxide 31 BUN 12 Creatinine 0.40 L Estimated GFR > 60.0 BUN/Creatinine Ratio 30.0 H Glucose 111 H Calcium 7.6 L 09/24/19 09:05 WBC RBC Hgb Hct MCV MCH MCHC RDW Plt Count Neut % (Auto) Lymph % (Auto) [place] % (Auto) Eos % (Auto) Baso % (Auto) Neut # (Auto) Lymph # (Auto) [place] # (Auto) Eos # (Auto) Baso # (Auto) APTT 45 H D Sodium Potassium Chloride Carbon Dioxide BUN Creatinine Estimated GFR BUN/Creatinine Ratio Glucose Calcium Assessment & Plan Assessment & Plan narrative: Glenys Munoz is a 79-year-old female with a past medical history significant for coronary artery disease status post CABG x1 vessel, cardiomyopathy, left bundle branch block, aortic stenosis status post mechanical aortic valve on warfarin, hypertension, hyperlipidemia, hypothyroidism, osteoarthritis, osteoporosis, restless leg syndrome, and morbid obesity who presented for elective right total hip arthroplasty. Medicine team was consulted to manage patient's atrial fibrillation with RVR, but has been involved with multiple medical issues over the course of her stay including acute blood loss secondary to anticoagulation for mechanical aortic valve and postoperative hypotension. 1. Acute blood loss anemia, secondary to anticoagulation for mechanical aortic valve, now status post I&D with washout and evacuation of large hematoma, not present on admission. Resolving. -Patient is now status post I&D with washout and evacuation of large hematoma. -Patient has received a total of 5 units PRBC. -Hemoglobin 9.2 and hematocrit 27.7 and stable. Continue to monitor H&H closely. Transfusion goal hemoglobin < 8.0. -Iron panel demonstrated iron deficiency anemia. Received Venofer 200 mg x 1. Continue ferrous gluconate 324 mg daily. 2. Acute postoperative hypotension in setting of chronic hypertension, not present on admission. Ongoing. -Patient was initially hypotensive postoperative due to acute blood loss. Her blood pressure improved with IV fluid and PRBCs administration. Patient's blood pressure continues to be labile. -Discontinued IV fluids as patient is adequately hydrated. Patient has received a total of 5 units PRBC. -Initially held antihypertensives including carvedilol 25 mg twice daily and lisinopril 5 mg daily at bedtime. Restarted carvedilol at decreased dose due to labile blood pressure from 25 mg to 3.125 mg twice daily for heart rate control. Continue to hold lisinopril 5 mg daily at bedtime. 3. Paroxysmal atrial fibrillation with RVR, not present on admission. RVR resolved. -Patient had atrial fibrillation following 1st hip surgery with instability requiring cardioversion. Rhythm is been resistant for extent. Now stable in sinus rhythm. -TSH within normal limits. -Electrolytes within normal limits. Continue to monitor electrolytes closely and replete as necessary. Goal K > 4.0 and Mg > 2.0. -Echocardiogram was technically difficult and demonstrated aortic valve is not well visualized, valve type is not known, transvalvular velocities and mean gradient are similar to the reports from the outside hospital, there is moderate to severe mitral annular calcification, more prominent in the posterior annulus with moderate mitral stenosis. Mean gradient is 6 mmHg at heart rate of 84 bpm, left atrium is severely dilated, right ventricle is at the upper limits of normal in size; RV systolic function is normal, RVSP 43 mmHg based on an estimated right atrial pressure of 3 mm Hg. -Received amiodarone 150 mg bolus and 24 hour gtt per protocol. Per patient's cardiology group at [facility] held amiodarone as LFTs were elevating. Could consider restarting amiodarone at lower dose once LFTs have improved. -Received digoxin 250 mcg IV every 4 hours x 2 doses then discontinued as patient was cardioverted to sinus rhythm. -Patient had successful cardioversion x 2 to sinus rhythm and has since went into and out of atrial fibrillation. -Restarted carvedilol at decreased dose due to labile blood pressure from 25 mg to 3.125 mg twice daily for heart rate control. Continue to re-evaluate rate control and adjust dose as necessary. 4. History of mechanical aortic valve, chronic, present admission. Stable. -INR 1.6. Restarted heparin gtt to bridge until warfarin is restarted per ortho. Per cardiology at [facility], in future do not bridge patient with lovenox and heparin gtt instead. -Continue to monitor INR daily. Goal INR 2.0-3.0. 5. Likely acute on chronic mild transaminitis, unclear if present on admission. Resolving. -Likely medication induced and related to amiodarone and acetaminophen versus fatty liver disease. -Per patient's cardiology group at [facility] held amiodarone as LFTs are elevating. Also held acetaminophen. -LFTs continue to trend downward. -Liver ultrasound demonstrated increased hepatic echogenicity most consistent with hepatic steatosis and gallbladder is mildly prominent with gallstones present but no gallbladder wall thickening, sonographic Chatman's sign, or pericholecystic fluid to suggest acute cholecystitis. 6. DJD status post right total arthroplasty, acute on chronic, present on admission. Improving. -Status post right total hip arthroplasty on 09/12 and I&D with washout and evacuation of hematoma on 09/22/2019. -Continue postoperative and pain management per Orthopedic surgery. -Implemented and continue bowel regimen. 7. Type 2 AK, not present on admission. Resolved. -Echocardiogram was technically difficult and demonstrated aortic valve is not well visualized, valve type is not known, transvalvular velocities and mean gradient are similar to the reports from the outside hospital, there is moderate to severe mitral annular calcification, more prominent in the posterior annulus with moderate mitral stenosis. Mean gradient is 6 mmHg at heart rate of 84 bpm, left atrium is severely dilated, right ventricle is at the upper limits of normal in size; RV systolic function is normal, RVSP 43 mmHg based on an estimated right atrial pressure of 3 mm Hg. -As anticipated patient had troponin leak due to demand ischemia in setting of atrial fibrillation with RVR and later had a cardioversion x2. -Patient denies chest pain or ACS symptoms. No need to further trend troponin. 8. CAD, chronic, present on admission. Stable. -Patient has history of CABG x1 vessel. -Patient endorsed lightheadedness and dizziness with diaphoresis due to arrhythmia which has resolved with cardioversion. Denies chest pain or ACS symptoms. -Initially held aspirin, carvedilol, and lisinopril due to hypotension related to acute blood loss as above. Carvedilol has since been resumed as above. Continue to hold aspirin and lisinopril. Continue rosuvastatin 40 mg at bedtime. 9. Hyperlipidemia, chronic, present on admission. Stable. -Continue rosuvastatin 40 mg daily at bedtime and ezetimibe 10 mg daily at bedtime. 10. Hypothyroidism, chronic condition, present on admission, stable -TSH normal at 3.93. Continue levothyroxine 125 mcg daily. Code status: Full code. No formal health directive per patient, however patient designates her daughters Sharri and Agnela, as surrogate decision makers. VTE prophylaxis: Warfarin and SCDs. Thank you for this most interesting consult. Medicine team will continue to follow along with you.
[2019-09-24 09:58] LABS: INR 1.3 (0.9-1.3); Prothrombin Time 15.5 SECONDS (10.1-12.7)
[2019-09-24] MEDS: NYSTATIN CREAM 30 GM 1 APPLIC TOP ×3 (10:09→21:07)
[2019-09-24] MEDS: carvediloL 3.125 MG TABLET PO ×2 (10:09→21:06)
[2019-09-24] MEDS: DOCUSATE 100 MG CAPSULE PO ×2 (10:09→21:05)
[2019-09-24] MEDS: SODIUM CHLORIDE 0.9% FLUSH 10 ML IV (10:10)
[2019-09-24 10:13] LABS: INR 1.4 (0.9-1.3); Prothrombin Time 15.9 SECONDS (10.1-12.7)
[2019-09-24 10:41] LABS: Procalcitonin < 0.05 ng/mL (<0.5)
[2019-09-24] MEDS: HEPARIN DRIP 25,000 UNIT/500 ML IV.SOLN 22 UNIT IV (12:34)
--- NOTE | 2019-09-24 13:54 | PC.NURSE ---
Patient's daughter was concerned about patient's puffy pink cheeks this morning and apparently spoke with our charge nurse Iwona and concerns were discussed with Dr. Díaz. Patient up with P.T. and O.T. this morning, and tolerated well. Used BSC twice and sat up in chair for approximately 1.5 hours. TRAVON dressings x [address] to right hip, along with hemovac drain which remains intact. Patient's pink cheeks remain, but patient now complaining of some chills. Afebrile, and vital signs remain stable. Dr. Díaz notified. Patient resting quietly in bed, with call light within reach. Continue to monitor.
[2019-09-24 14:43] LABS: Hematocrit 27.7 % (36-46); Hemoglobin 9.2 g/dL (12.0-16.0)
--- NOTE | 2019-09-24 14:48 | PT.IPTN ---
Current Diagnoses Cutaneous abscess, unspecified (09/10/19) Unilateral primary osteoarthritis, right hip (09/10/19) Surgery Performed Operation Date: 09/10/19 07:45 Actual Procedures p Total Hip Arthroplasty(Right) - Rod Randhawa MD Operation Date: 09/22/19 16:00 Actual Procedures p Incision and Drainage S/P Hip(Right) - Rod Randhawa MD Physical Therapy Treatment Note M2 PT-IP Current Condition Start: 09/10/19 17:18 Freq: NEEDED Status: Active Protocol: Document 09/21/19 14:27 AW (Rec: 09/21/19 15:00 AW [id number]) Physical Therapy Current Condition Current Condition Evaluation Date 09/21/19 Treatment Diagnosis R PRIETO, a fib w/ RVR, impaired mobility Onset Date 09/10/19 Precautions Posterior Hip Precautions No Hip Flexion > 90 degrees,No Hip Internal Rotation,No Hip Adduction Weight Bearing Status Weight Bearing Status Weight Bear as Tolerated M3 PT-IP Subjective Start: 09/10/19 17:18 Freq: NEEDED Status: Active Protocol: Document 09/24/19 09:37 LJ (Rec: 09/24/19 14:48 LJ [id number]) Subjective Physical Therapy Visit Type Type Treatment Note Visit Start Time 09:37 Visit Stop Time 10:23 Total Visit Minutes 46 Notes Co-treat with OT Physical Therapy Visit Comments Patient Comments Pt willing to work with therapy Therapy Pain Assessment Pain When Pain Assessed At Rest M4 PT-IP Mobility and Gait Start: 09/10/19 17:18 Freq: NEEDED Status: Active Protocol: Document 09/24/19 09:37 LJ (Rec: 09/24/19 14:48 LJ [id number]) PT-Bed Mobility Assessment Supine to Sit Supine to Sit Maximum Assistance,2 Person Assistance,Head of Bed Elevated,Bedrails Scooting Scooting to Edge of Bed Maximum Assistance PT-Transfer Assessment Sit to and From Stand Sit to and from Stand Moderate Assistance,1 Person Assistance,Use of Upper Extremities Equipment Transfer Assistive Device Gait Belt,Front Wheeled Walker Transfers Transfer Destination Chair,Bedside Commode Transfer Technique Stand Step Pivot Transfer Ability Level of Assist Moderate Assistance,1 Person Assistance,Use of Upper Extremities Comments Mobility Comments Pt in bed on arrival willing to get onto the BSC. BP in supine 105/55 HR 86. MaxA x2 for bed mobility and ModA x1 sit<>stand. Pt able to transfer with Yung and mod cues to step pivot to BS. Pt on BSC for ~12 min c/o dizziness and head floating off my neck. BP on BSC 114/61 HR 94. Pt stood from commode with Yung and stood for several minutes weight shifting while pericare was performed. Gait Assessment Gait Gait Assistance Required: Minimum Assistance,1 Person Assist Distance (Feet) 6 Able to Maintain Weight Bearing Status Yes During Gait Assistive Devices Assistive Device Gait Belt,Front Wheeled Walker Orthotic/Prosthetic Devices or Brace: No Gait Deviations General Gait Pattern Antalgic,Decreased Stride Length,Decreased Feet Clearance,Flexed Trunk,Step-to Gait Factors Limiting Gait Function Factors Limiting Gait Function Decreased Activity Tolerance, Decreased Strength,Limited Range of Motion,Pain,Poor Balance Comments Gait Comments Pt ambulated from BSC to chair ~6' and turned to right to back up to chair. Yung and cues for ambulation. Pt able to lower herself into chair without dropping. Pt left in room with nursing. M5 PT-IP Objective Assessments Start: 09/10/19 17:18 Freq: NEEDED Status: Active Protocol: Document 09/21/19 14:27 AW (Rec: 09/21/19 15:00 AW [id number]) Orientation Orientation/Cognition Level of Alertness Alert Orientation Name,Day of Week,Place, Situation Language Function Ability No Deficits Noted Safety Awareness Decreased Safety Awareness Memory Description Short Term Impaired Gross Range of Motion Upper Extremity ROM Assessment Within Functional Limits Lower Extremity ROM Assessment Bilaterally Impaired Impairments RLE tightness and increase guarding affecting PROM Strength Upper Extremity Strength Assessment Within Functional Limits Lower Extremity Strength Assessment Bilaterally Impaired Hip R: 3+/5 L: 4-/5 Knee R: 3-/5 L: 3+/5 Ankle B: 3+/5 Comments Strength Comments MMT limited secondary to pain Sensation Assessment Sensation Gross Sensation WNL M6 PT-IP Treatment Start: 09/10/19 17:18 Freq: NEEDED Status: Active Protocol: Document 09/24/19 09:37 LJ (Rec: 09/24/19 14:48 LJ [id number]) Physical Therapy Treatment Exercises Exercises Ankle Pumps,Gluteal Sets Education Education Provided Safety M7 PT-IP Assessment and Plan Start: 09/10/19 17:18 Freq: NEEDED Status: Active Protocol: Document 09/24/19 09:37 CHATA (Rec: 09/24/19 14:48 CHATA [id number]) PT Summary Assessment and Plan Potential Rehabilitation Potential Good Status of Condition at Evaluation Evolving Summary Impairments Pain,ROM,Strength,Balance, Coordination,Sensation,Tone, Cognition,Bed Mobility, Transfers,Gait,Activity Tolerance Progress Towards Goals Slow Progress due to Pain,Slow Progress - Other Assessment Summary Pt is improving with gait being able to increase distance slightly. Her main complaint this morning was her dizziness and lightheadedness . BP and HR remained stable throughtout session. She was able to advance her RLE during brief ambulation and continues to put forth good effort. Goals Bed Mobility Goal Minimal Assistance Transfer Goal Minimal Assistance,Front Wheeled Walker Gait Goal Minimal Assistance,Front Wheel Walker Gait Distance 75 Days to Meet Goals 10 Frequency of Treatment Frequency Of Treatment Twice a Day Treatment Plan Physical Therapy Treatment Plan Bed Mobility Training,Transfer Training,Gait Training, Therapeutic Exercise,Balance Retraining,Post Op Education, Discharge Planning,Hot or Cold Pack,Neuromuscular Re-ed, Coordination Retraining,Manual Therapy Recommendations To Nursing Amount of Assist Needed 2 Person Assist Discharge Recommendations PT Discharge Recommendations SNF Rehab
--- NOTE | 2019-09-24 14:50 | PT-IP ANOTE ---
Per Dr. Díaz, pt is on lhold this afternoon due to increased fatigue and possible infection
[2019-09-24 14:54] LABS: PTT Partial Thromboplastin Tim 46 SECONDS (26.4-36.2)
[2019-09-24] MEDS: BACLOFEN 10 MG TABLET PO (15:06)
[2019-09-24 15:36] LABS: Alanine Aminotransferase 67 IU/L (<35); Albumin 2.4 g/dL (3.5-5.0); Albumin Globulin Ratio 0.9 (1.0-2.8); Alkaline Phosphatase 101 U/L (38-126); Aspartate Aminotransferase 53 IU/L (14-36); Bilirubin Total 1.2 mg/dL (0.2-1.3); Globulin 2.8 g/dL (1.7-4.1); HEMOLYSIS < 15 (0-50); Total Protein 5.2 g/dL (6.3-8.2)
--- NOTE | 2019-09-24 15:53 | CM.DPC ---
DCP SNF Planning: Per MD, pt with possible Illeus vs severe constipation and pt will remain on aggressive bowel regimen towards determining needs. Per RN, spouse bedside with d/c questions. SW met bedside with spouse and explained role and spouse confirms that she is still agreeable with SNF as pt requires too much assist to safely go home but spouse now wanting to tour other SNF's to confirm preference is [facility]. SW provided the SNF Choice List and discussed care at SNF and encouraged spouse to tour. Spouse thinking of touring and [place] SNF's as [place] [facility] and plans to try to go this afternoon. SW also discussed possible option of [facility] SNF rehab if they have an opening and can accept pt as another option if she wanted to tour there. Spouse also states she is aware of the Medicare Appeal rights in case MD discharges pt and she does not feel he is ready and SW encouraged her to tour SNF as soon as possible to confirm her SNF preference but that if appeal needed then Medicare will look to see if pt is medically stable to d/c to a lower level of care and spouse states she understands. Plan: SW to follow closely tomorrow to determine if spouse was able to tour other SNF's to confirm her SNF preference. [facility] has accepted pt and PASRR previously completed. SHANIKA Garber
--- NOTE | 2019-09-24 16:38 | PC.NURSE ---
Pt's PTT back from pending, Heparin gtt was increased by 1 ML to (23mL). Double check done with Nurse Marychuy VALDIVIA. Next lab draw due at 2230.
[2019-09-24] MEDS: WARFARIN 2 MG TABLET PO (18:03)
[2019-09-24 18:47] LABS: PTT Partial Thromboplastin Tim 53 SECONDS (26.4-36.2)
[2019-09-24] MEDS: PANTOPRAZOLE 40 MG TABLET PO (21:05)
[2019-09-24] MEDS: MELATONIN 3 MG TABLET 6 MG PO (21:05)
[2019-09-24] MEDS: ROSUVASTATIN 10 MG TABLET 40 MG PO (21:05)
[2019-09-24] MEDS: EZETIMIBE 10 MG TABLET PO (21:06)
[2019-09-24] MEDS: POTASSIUM CHLORIDE 20 MEQ TAB 40 MEQ PO (21:15)
[2019-09-24 22:28] LABS: PTT Partial Thromboplastin Tim 43 SECONDS (26.4-36.2)
[2019-09-25] VITALS (9 sets, daily range): BP systolic 102–137; BP diastolic 42–71; PULSE 78–97; RESP 16–20; TEMP 36.3–37.1; O2SAT 94–100
[2019-09-25] MEDS: TRAMADOL 50 MG TABLET 100 MG PO ×4 (00:36→20:40)
--- NOTE | 2019-09-25 02:12 | PC.NURSE ---
Patient seen and assessed at 2340. Is alert and oriented. Breath sounds diminished at bases but is 95% on RA; does complain of difficulty breathing if HOB not elevated. HRR; telemetry reading was SR w/BBB and occasional PVC's. Denies nausea. BT present and abdomen is soft. Incontinent of urine. Is being repositioned q2h or more frequently if requested by patient. Edema present in bilateral LE from hip down. Bruising noted on abdomen and all extremities. Red, moist and excoriated in abdominal fold; pillowcase placed to separate skin folds. TRAVON dressing to right hip with serous drainage noted at upper end of dressing. Hemovac is intact and compressed. States pain in right hip is 3/10; requested/medicated with Tramadol. Wearing bilateral calf SCD's. Is very weak in right LE and is unable to move it on her own. Does state there is numbness on plantar surface of forefoot. Bilateral LE elevated on pillows and end of bed also elevated. Fall risk score is high and bed alarm is activated
[2019-09-25 05:48] LABS: Add Manual Diff / Slide Review NO; Basophils Absolute Auto 100 /uL (0-100); Basophils Percent Auto 0.8 % (0-2); Eosinophils Absolute Auto 300 /uL (0-450); Eosinophils Percent Auto 3.7 % (2-4); Hematocrit 25.1 % (36-46); Hemoglobin 8.5 g/dL (12.0-16.0); Lymphocytes Absolute Auto 2400 /uL (1100-4500); Lymphocytes Percent Auto 26.8 % (25-40); Mean Corpuscular HGB Conc 33.9 % (30-36); Mean Corpuscular Volume 97.1 fL (80-100); Monocytes Absolute Auto 900 /uL (0-900); Monocytes Percent Auto 10.3 % (3-14); Neutrophils Absolute Auto 5300 /uL (1500-7000); Neutrophils Percent Auto 58.4 % (50-75); Platelet Count 532 X10^3/uL (150-400); Red Blood Cell Count 2.58 X10^6/uL (4.0-5.2); Red Cell Distribution Width 16.4 % (11.6-14.8); White Blood Cell Count 9.1 X10^3/uL (4.5-11.0)
[2019-09-25 05:50] LABS: PTT Partial Thromboplastin Tim 58 SECONDS (26.4-36.2)
[2019-09-25 05:52] LABS: Alanine Aminotransferase 55 IU/L (<35); Albumin 2.5 g/dL (3.5-5.0); Albumin Globulin Ratio 0.8 (1.0-2.8); Alkaline Phosphatase 93 U/L (38-126); Aspartate Aminotransferase 43 IU/L (14-36); BUN Creatinine Ratio 22.5 (6-22); Blood Urea Nitrogen 9 mg/dL (7-17); Calcium 7.7 mg/dL (8.4-10.2); Carbon Dioxide 32 mmol/L (22-32); Chloride 99 mmol/L (98-107); Estimated Glomerular Filt Rate > 60.0 mL/min (>60); Globulin 3.1 g/dL (1.7-4.1); Glucose 103 mg/dL (80-110); HEMOLYSIS < 15 (0-50); Magnesium 2.3 mg/dL (1.6-2.3); Potassium 4.2 mmol/L (3.4-5.1); Sodium 133 mmol/L (137-145); Total Protein 5.6 g/dL (6.3-8.2)
[2019-09-25 06:06] LABS: Procalcitonin < 0.05 ng/mL (<0.5)
[2019-09-25 06:24] LABS: INR 1.3 (0.9-1.3); Prothrombin Time 15.4 SECONDS (10.1-12.7)
[2019-09-25] MEDS: LEVOTHYROXINE 125 MCG TABLET PO (06:28)
[2019-09-25] MEDS: NYSTATIN CREAM 30 GM 1 APPLIC TOP ×2 (08:02→20:41)
[2019-09-25] MEDS: carvediloL 3.125 MG TABLET PO ×2 (08:02→20:44)
[2019-09-25] MEDS: DOCUSATE 100 MG CAPSULE PO (08:02)
--- NOTE | 2019-09-25 08:40 | PM.PN.1 ---
Subjective Subjective Date Patient Seen: 09/25/19 Interval history: Glenys Munoz is a 79-year-old female with a past medical history significant for coronary artery disease status post CABG x1 vessel, cardiomyopathy, left bundle branch block, aortic stenosis status post mechanical aortic valve on warfarin, hypertension, hyperlipidemia, hypothyroidism, osteoarthritis, osteoporosis, restless leg syndrome, and morbid obesity who presented for elective right total hip arthroplasty. Medicine team was consulted to manage patient's atrial fibrillation with RVR, but has been involved with multiple medical issues over the course of her stay including acute blood loss secondary to anticoagulation for mechanical aortic valve and postoperative hypotension. The patient is lying in bed and appears comfortable. She reports she is having a much better day than yesterday and slept well throughout the night. She is more optimistic today. She Continue bridging patient with heparin gtt to warfarin to prevent thrombosis of aortic mechanical valve and plan to restart warfarin tonight. Her blood counts and blood pressure are stable and her Hemovac drains have minimal output. She is intermittently incontinent due to inability to hold bladder but voiding and eliminating without difficulty. Continue physical and occupational therapy. Exam Vital Signs (past 8 hours): - 09/25/19 06:00 09/25/19 08:02 Temperature 98.0 F Pulse Rate 87 88 Respiratory Rate 18 Blood Pressure 111/52 L 106/45 L Pulse Oximetry 94 Oxygen Delivery Method Room Air Oxygen Flow Rate 0 Narrative Exam Narrative: General: Elderly morbidly obese female sitting in bedside chair and in no acute distress, well-developed, awake and alert, anxious otherwise appropriately interactive. HEENT: Normocephalic, atraumatic. External ears without defect. Pupils equal, round, and reactive to light. Anicteric sclera, moist conjunctivae and no lid lag. Neck: Supple with full range of motion. No lymphadenopathy or thyromegaly. Cardiovascular: Regular rate and rhythm with ejection murmur. No rubs or gallops appreciated. Pulmonary: Clear to auscultation bilaterally without crackles, wheezes, or rhonchi. Normal respiratory effort with no use of accessory muscles. Abdomen: Soft, obese, bowel sounds present, nontender, nondistended. No hepatosplenomegaly or masses appreciated. Extremities: No clubbing or cyanosis. Bilateral lower extremity lipedema. Bipedal edema resolved. Right hip with dressing in place C/D/I with surrounding minimal and improved ecchymoses and edema. Two drains in place with minimal sanguinous fluid. Skin: Normal temperature, turgor, and texture; no rash, ulcers, or subcutaneous nodules appreciated. Neurological: Cranial nerves grossly intact. Psychiatric: Anxious mood and normal affect. Alert and oriented to person, place, and time. Objective Labs Result Diagrams: 09/25/19 05:17 09/25/19 05:17 Labs: Laboratory Results - last 24 hr 09/24/19 09/24/19 09/24/19 07:05 07:05 09:05 WBC RBC Hgb Hct MCV MCH MCHC RDW Plt Count Neut % (Auto) Lymph % (Auto) [place] % (Auto) Eos % (Auto) Baso % (Auto) Neut # (Auto) Lymph # (Auto) [place] # (Auto) Eos # (Auto) Baso # (Auto) PT 15.9 H 15.5 H INR 1.4 H 1.3 APTT 45 H D Sodium Potassium Chloride Carbon Dioxide BUN Creatinine Estimated GFR BUN/Creatinine Ratio Glucose Calcium Magnesium Total Bilirubin Conjugated Bilirubin Unconjugated Bilirubin AST ALT Alkaline Phosphatase Total Protein Albumin Globulin Albumin/Globulin Ratio Procalcitonin < 0.05 09/24/19 09/24/19 09/24/19 14:30 14:30 14:30 WBC RBC Hgb 9.2 L Hct 27.7 L MCV MCH MCHC RDW Plt Count Neut % (Auto) Lymph % (Auto) [place] % (Auto) Eos % (Auto) Baso % (Auto) Neut # (Auto) Lymph # (Auto) [place] # (Auto) Eos # (Auto) Baso # (Auto) PT INR APTT 46 H Sodium Potassium Chloride Carbon Dioxide BUN Creatinine Estimated GFR BUN/Creatinine Ratio Glucose Calcium Magnesium Total Bilirubin 1.2 Conjugated Bilirubin 0.0 Unconjugated Bilirubin 1.0 AST 53 H ALT 67 H Alkaline Phosphatase 101 Total Protein 5.2 L Albumin 2.4 L Globulin 2.8 Albumin/Globulin Ratio 0.9 L Procalcitonin 09/24/19 09/24/19 09/25/19 18:31 22:15 05:17 WBC 9.1 RBC 2.58 L Hgb 8.5 L Hct 25.1 L MCV 97.1 MCH 33.0 MCHC 33.9 RDW 16.4 H Plt Count 532 H Neut % (Auto) 58.4 Lymph % (Auto) 26.8 [place] % (Auto) 10.3 Eos % (Auto) 3.7 Baso % (Auto) 0.8 Neut # (Auto) 5300 Lymph # (Auto) 2400 [place] # (Auto) 900 Eos # (Auto) 300 Baso # (Auto) 100 PT INR APTT 53 H D 43 H D Sodium Potassium Chloride Carbon Dioxide BUN Creatinine Estimated GFR BUN/Creatinine Ratio Glucose Calcium Magnesium Total Bilirubin Conjugated Bilirubin Unconjugated Bilirubin AST ALT Alkaline Phosphatase Total Protein Albumin Globulin Albumin/Globulin Ratio Procalcitonin 09/25/19 09/25/19 09/25/19 05:17 05:17 05:17 WBC RBC Hgb Hct MCV MCH MCHC RDW Plt Count Neut % (Auto) Lymph % (Auto) [place] % (Auto) Eos % (Auto) Baso % (Auto) Neut # (Auto) Lymph # (Auto) [place] # (Auto) Eos # (Auto) Baso # (Auto) PT INR APTT 58 H D Sodium 133 L Potassium 4.2 Chloride 99 Carbon Dioxide 32 BUN 9 Creatinine 0.40 L Estimated GFR > 60.0 BUN/Creatinine Ratio 22.5 H Glucose 103 Calcium 7.7 L Magnesium 2.3 Total Bilirubin 1.0 Conjugated Bilirubin Unconjugated Bilirubin AST 43 H ALT 55 H Alkaline Phosphatase 93 Total Protein 5.6 L Albumin 2.5 L Globulin 3.1 Albumin/Globulin Ratio 0.8 L Procalcitonin < 0.05 09/25/19 05:17 WBC RBC Hgb Hct MCV MCH MCHC RDW Plt Count Neut % (Auto) Lymph % (Auto) [place] % (Auto) Eos % (Auto) Baso % (Auto) Neut # (Auto) Lymph # (Auto) [place] # (Auto) Eos # (Auto) Baso # (Auto) PT 15.4 H INR 1.3 APTT Sodium Potassium Chloride Carbon Dioxide BUN Creatinine Estimated GFR BUN/Creatinine Ratio Glucose Calcium Magnesium Total Bilirubin Conjugated Bilirubin Unconjugated Bilirubin AST ALT Alkaline Phosphatase Total Protein Albumin Globulin Albumin/Globulin Ratio Procalcitonin Assessment & Plan Assessment & Plan narrative: Glenys Munoz is a 79-year-old female with a past medical history significant for coronary artery disease status post CABG x1 vessel, cardiomyopathy, left bundle branch block, aortic stenosis status post mechanical aortic valve on warfarin, hypertension, hyperlipidemia, hypothyroidism, osteoarthritis, osteoporosis, restless leg syndrome, and morbid obesity who presented for elective right total hip arthroplasty. Medicine team was consulted to manage patient's atrial fibrillation with RVR, but has been involved with multiple medical issues over the course of her stay including acute blood loss secondary to anticoagulation for mechanical aortic valve and postoperative hypotension. 1. Acute blood loss anemia, secondary to anticoagulation for mechanical aortic valve, now status post I&D with washout and evacuation of large hematoma, not present on admission. Resolving. -Patient is now status post I&D with washout and evacuation of large hematoma. -Patient has received a total of 5 units PRBC. -Hemoglobin 8.5. Patient received midline with some oozing today. Continue to monitor H&H closely. Transfusion goal hemoglobin < 8.0. -Iron panel demonstrated iron deficiency anemia. Received Venofer 200 mg x 1. Continue ferrous gluconate 324 mg daily. 2. Acute postoperative hypotension in setting of chronic hypertension, not present on admission. Ongoing. -Patient was initially hypotensive postoperative due to acute blood loss. Her blood pressure improved with IV fluid and PRBCs administration. Patient's blood pressure continues to be labile. -Discontinued IV fluids as patient is adequately hydrated. Patient has received a total of 5 units PRBC. -Initially held antihypertensives including carvedilol 25 mg twice daily and lisinopril 5 mg daily at bedtime. Restarted carvedilol at decreased dose due to labile blood pressure from 25 mg to 3.125 mg twice daily for heart rate control. Continue to hold lisinopril 5 mg daily at bedtime. 3. Paroxysmal atrial fibrillation with RVR, not present on admission. RVR resolved. -Patient had atrial fibrillation following 1st hip surgery with instability requiring cardioversion. Rhythm is been resistant for extent. Now stable in sinus rhythm. -TSH within normal limits. -Electrolytes within normal limits. Continue to monitor electrolytes closely and replete as necessary. Goal K > 4.0 and Mg > 2.0. -Echocardiogram was technically difficult and demonstrated aortic valve is not well visualized, valve type is not known, transvalvular velocities and mean gradient are similar to the reports from the outside hospital, there is moderate to severe mitral annular calcification, more prominent in the posterior annulus with moderate mitral stenosis. Mean gradient is 6 mmHg at heart rate of 84 bpm, left atrium is severely dilated, right ventricle is at the upper limits of normal in size; RV systolic function is normal, RVSP 43 mmHg based on an estimated right atrial pressure of 3 mm Hg. -Received amiodarone 150 mg bolus and 24 hour gtt per protocol. Per patient's cardiology group at [facility] held amiodarone as LFTs were elevating. Could consider restarting amiodarone at lower dose once LFTs have improved. -Received digoxin 250 mcg IV every 4 hours x 2 doses then discontinued as patient was cardioverted to sinus rhythm. -Patient had successful cardioversion x 2 to sinus rhythm and has since went into and out of atrial fibrillation. -Restarted carvedilol at decreased dose due to labile blood pressure from 25 mg to 3.125 mg twice daily for heart rate control. Continue to re-evaluate rate control and adjust dose as necessary. 4. History of mechanical aortic valve, chronic, present admission. Stable. -INR 1.6. Restarted heparin gtt to bridge until warfarin is restarted per ortho. Per cardiology at [facility], in future do not bridge patient with lovenox and heparin gtt instead. -Continue warfarin 2 mg daily at 1700 to slowly get to goal INR closer to 2.0. Continue to monitor INR daily. Goal INR 2.0-3.0. 5. Likely acute on chronic mild transaminitis, unclear if present on admission. Resolving. -Likely medication induced and related to amiodarone and acetaminophen versus fatty liver disease. -Per patient's cardiology group at [facility] held amiodarone as LFTs are elevating. Also held acetaminophen. -LFTs continue to trend downward. -Liver ultrasound demonstrated increased hepatic echogenicity most consistent with hepatic steatosis and gallbladder is mildly prominent with gallstones present but no gallbladder wall thickening, sonographic Chatman's sign, or pericholecystic fluid to suggest acute cholecystitis. 6. DJD status post right total arthroplasty, acute on chronic, present on admission. Improving. -Status post right total hip arthroplasty on 09/12 and I&D with washout and evacuation of hematoma on 09/22/2019. -Continue postoperative and pain management per Orthopedic surgery. -Implemented and continue bowel regimen. 7. Type 2 NM, not present on admission. Resolved. -Echocardiogram was technically difficult and demonstrated aortic valve is not well visualized, valve type is not known, transvalvular velocities and mean gradient are similar to the reports from the outside hospital, there is moderate to severe mitral annular calcification, more prominent in the posterior annulus with moderate mitral stenosis. Mean gradient is 6 mmHg at heart rate of 84 bpm, left atrium is severely dilated, right ventricle is at the upper limits of normal in size; RV systolic function is normal, RVSP 43 mmHg based on an estimated right atrial pressure of 3 mm Hg. -As anticipated patient had troponin leak due to demand ischemia in setting of atrial fibrillation with RVR and later had a cardioversion x2. -Patient denies chest pain or ACS symptoms. No need to further trend troponin. 8. CAD, chronic, present on admission. Stable. -Patient has history of CABG x1 vessel. -Patient endorsed lightheadedness and dizziness with diaphoresis due to arrhythmia which has resolved with cardioversion. Denies chest pain or ACS symptoms. -Initially held aspirin, carvedilol, and lisinopril due to hypotension related to acute blood loss as above. Carvedilol has since been resumed as above. Continue to hold aspirin and lisinopril. Continue rosuvastatin 40 mg at bedtime. 9. Hyperlipidemia, chronic, present on admission. Stable. -Continue rosuvastatin 40 mg daily at bedtime and ezetimibe 10 mg daily at bedtime. 10. Hypothyroidism, chronic condition, present on admission, stable -TSH normal at 3.93. Continue levothyroxine 125 mcg daily. Code status: Full code. No formal health directive per patient, however patient designates her daughters Sharri and Angela, as surrogate decision makers. VTE prophylaxis: Warfarin and SCDs. Thank you for this most interesting consult. Medicine team will continue to follow along with you.
--- NOTE | 2019-09-25 10:11 | DI.RAD.S_ITS ---
PROCEDURE: XR CHEST FOR PICC 1V INDICATIONS: line placement TECHNIQUE: One view of the chest was acquired. COMPARISON: [facility], CR, XR CHEST 1V, 09/13/2019, 7:43. FINDINGS: Surgical changes and devices: Left-sided PICC with the tip projecting over the left clavicle, new. This may be within the left internal jugular vein. Post median sternotomy. Lungs and pleura: Lungs appear clear. Emphysematous change. No pleural effusions or pneumothorax. Mediastinum: Mediastinal contours appear unchanged. Heart size is normal. Bones and chest wall: No suspicious bony lesions. Probable kyphoplasty at the lower thoracic spine. Overlying soft tissues appear unremarkable. IMPRESSION: 1. Left-sided PICC catheter loops back on itself with the tip projecting cranially likely in the left internal jugular vein. 2. No pneumothorax. Dictated by: Hussain Carter M.D. on 09/25/2019 at 15:11 Approved by: Hussain Carter M.D. on 09/25/2019 at 15:15
[2019-09-25] MEDS: HEPARIN DRIP 25,000 UNIT/500 ML IV.SOLN 24 UNIT IV (11:02)
--- NOTE | 2019-09-25 11:24 | PT-IP ANOTE ---
Pt declined PT treatment this am stating was up already this am in chair for breakfast, did walked to use commode and very tired right now and has no more energy. Pt requested to be allow to rest and return early afternoon and should have enough energy to go for a walk. Pt not seen for PT treatment, will return in afternoon.
--- NOTE | 2019-09-25 13:22 | PC.NURSE ---
Per Dr. Arjun MD order for additional PTT check at 1700 today and continue heparin gtt as ordered per protocol.
--- NOTE | 2019-09-25 13:26 | OT.IP.TRT ---
Current Diagnoses Cutaneous abscess, unspecified (09/10/19) Unilateral primary osteoarthritis, right hip (09/10/19) Surgery Performed Operation Date: 09/10/19 07:45 Actual Procedures p Total Hip Arthroplasty(Right) - Rod Randhawa MD Operation Date: 09/22/19 16:00 Actual Procedures p Incision and Drainage S/P Hip(Right) - Rod Randhawa MD Occupational Therapy Treatment Note M2 OT-IP Current Condition Start: 09/16/19 17:37 Freq: Status: Active Protocol: Document 09/23/19 16:15 [facility] (Rec: 09/23/19 16:55 [facility] [id number]) Occupational Therapy Current Condition Current Condition Evaluation Date 09/23/19 Treatment Diagnosis s/p I and D of RTHA Diagnosis Onset Date 09/10/19 Post Operative Precautions Posterior Hip Precautions No Hip Flexion > 90 degrees,No Hip Internal Rotation,No Hip Adduction Weight Bearing Status Weight Bearing Status Weight Bear as Tolerated M3 OT- IP Subjective and Pain Start: 09/16/19 17:37 Freq: Status: Active Protocol: Document 09/25/19 12:40 [facility] (Rec: 09/25/19 15:52 [facility] [id number]) OT- Subjective Occupational Therapy Visit Type Type Treatment Note Visit Start Time 12:40 Visit Stop Time 13:26 Total Visit Minutes 46 Occupational Therapy Visit Comments Patient Comments Pt agreeable to do practice lower body dressing needs with adaptive equipment while sitting at the edge of the bed . Patient/Caregiver Goals To be able to take care of herself. OT Pain Assessment Pain When Pain Assessed At Rest Pain Present Pain Present Denied Pain M4 OT- IP ADL's Start: 09/16/19 17:37 Freq: Status: Active Protocol: Document 09/25/19 12:40 [facility] (Rec: 09/25/19 15:52 [facility] [id number]) OT [id number] Comments OT Self-Feeding Comments Not at meal time. OT ADL-Dressing General Eval Lower Body Dressing Ability Moderate Assistance Areas Needing Assistance Pants/Shorts,Socks Assistive Devices Dressing Assistive Devices After School Teacher,Sock Aid Comments OT Dressing Comments Went over dressing technique for hip precautions of dressing her RLE first and taking it out last . Pt able to practice twice and talk herself through the sequence and able to safely anuja pants over her feet and pull up over her knees with use of frit mixer . Pt did not stand with pants due to having drain tubing/ bandage in the way and risk of having the tubes come out. Pt use of sock aid to left foot, and due to her ankle being swollen needing assist to get the sock aid pulled out over her heel and ankle. Pt states is barefooted at home OT ADL-Toileting General Evaluation Toileting Ability Total Assistance Areas Needing Assistance Manage Clothing,Perform Perineal Hygiene Comments OT Toileting Comments Pt incontinent and needing MING to MODA to stand with FWW while nursing aid able to clean and change out her brief . M5 OT- IP IADL's Start: 09/16/19 17:37 Freq: Status: Active Protocol: Document 09/23/19 16:15 [facility] (Rec: 09/23/19 16:55 [facility] [id number]) OT-Instrumental Activities of Daily Living Medication Management Medication Management Comments Prior pt able to do on her own , however pt's daughter that will be able to stay with her and assist. Money Management Money Management Comments Pt's daughter states will be assisting her. Meal Preparation Meal Preparation Caregiver Provides Assist Credit Intern Credit Intern Caregiver Provides Assist Driving Driving Caregiver Provides Assist M6 OT- IP Functional Cognition Start: 09/16/19 17:37 Freq: Status: Active Protocol: Document 09/25/19 12:40 [facility] (Rec: 09/25/19 15:52 [facility] [id number]) Cognitive Factors Limiting Selfcare Function Cognitive Ability Level of Alertness Alert Patient Orientation Name,Place,Situation Attention Span Ability Capable of Focused Attention, Unable to Sustain Attention Ability to Follow Commands Able to Follow One Step Commands Safety Awareness Underestimates Need for Assistance Problem Solving Ability Needs Assist to Identify Solutions Cognitive Comments Cognitive Assessment Comments Pt able to states hip precautions. Pt motivated to participate in therapy and today did not perseverate on any issues. M7 OT- IP Mobility and Balance Start: 09/16/19 17:37 Freq: Status: Active Protocol: Document 09/25/19 12:40 [facility] (Rec: 09/25/19 15:52 [facility] [id number]) OT- Bed Mobility Assessment Supine to Sit Supine to Sit Assist Maximum Assistance,1 Person Assistance,Bedrails Sit to Supine Sit to Supine Assist Maximum Assistance,2 Person Assistance OT-Transfer Assessment Sit to and From Stand Sit to and from Stand Moderate Assistance,1 Person Assistance Comments Mobility Comments MODA X 1 with head of bed up, assist to move RLE and to help get trunk upright to sitting at the edge of the bed. Sit to stand MIN-MODA from high bed to FWW. Pt able to take side step to the head of the bed with MING x 1 and heavy use of arms on the FWW. OT- Balance Assessment Sitting Balance and Reactions Static Sitting Balance Ability Good Dynamic Sitting Balance Ability Fair Standing Balance and Reactions Static Standing Balance Ability Fair M8 OT- IP Objective Assessments Start: 09/16/19 17:37 Freq: Status: Active Protocol: Document 09/23/19 16:15 [facility] (Rec: 09/23/19 16:55 [facility] [id number]) OT Gross Range of Motion Upper Extremity Range of Motion Assessment Within Functional Limits OT Strength Comments Strength Comments From proxiaml to distal 4/5 to 4-/5. M9 OT- IP Assessment and Plan Start: 09/16/19 17:37 Freq: Status: Active Protocol: Document 09/25/19 12:40 [facility] (Rec: 09/25/19 15:52 [facility] [id number]) OT Summary Assessment and Plan Potential Rehabilitation Potential Good Analytic Complexity at Evaluation Low Summary OT Impairments Pain,Balance,Functional Cognition,Functional Mobility, Grooming,Dressing,Toileting, Bathing,Toilet Transfers, Shower Transfers,Activity Tolerance Progress Towards Goals Progressing Toward Goals Assessment Summary Pt very cooperative and motivated to do therapy today. Pt having better retention for LB dressing needs and use of adaptive equipment today. Pt will benefit from skilled rehab to continue to educate and increase independence for hip precautions for ADl and functional mobility needs. Goals Grooming Goal Standby Assistance Dressing Goal Minimal Assistance Toileting Goal Moderate Assistance Bathing Goal Moderate Assistance Toilet Transfer Goal Minimal Assistance Shower Transfer Goal Minimal Assistance Patient/Caregiver Education Goal Demonstrate Post-Op Precautions,Caregiver Independent Assisting Patient Days to Meet Goals 4 Frequency of Treatment Frequency Of Treatment Once a Day Treatment Plan OT Treatment Plan ADL Training,Functional Cognition Training,Functional Mobility,Patient/Family Education,Discharge Planning Other Treatment Recommendations and Next Stand at sink for grooming Treatment Focus needs with FWW. Discharge Recommendations OT Discharge Recommendations [place]hab [place] [facility] [place] [facility] [place] Needs at [place] Wheelchair/Cabulance
--- NOTE | 2019-09-25 13:46 | PM.PNPO.1 ---
Subjective Subjective Date Patient Seen: 09/25/19 Time Patient Seen: 10:00 Interval history: Patient complains of pain localized to surgical site (R hip). Describes as a general deep ache. Voiding without difficulty. Mobilizing with PT, recommends SNF discharge. Hospitalist began warfarin last night. Denies fever, chills, chest pain, shortness of breath, dizziness, palpitations, Exam Vital Signs (past 8 hours): - 09/25/19 06:00 09/25/19 08:02 09/25/19 09:12 Temperature 98.0 F 98.7 F Pulse Rate 87 88 78 Respiratory Rate 18 16 Blood Pressure 111/52 L 106/45 L 137/71 Pulse Oximetry 94 95 09/25/19 13:23 Temperature 98.2 F Pulse Rate 85 Respiratory Rate 16 Blood Pressure 119/58 L Pulse Oximetry 100 Oxygen Delivery Method Room Air Oxygen Flow Rate 0 Narrative Exam Narrative: 79 year old female is laying comfortably in bed, in no apparent distress. A&Ox3. TRAVON dressing is CDI but not working. SCDs in place. Hemovacc drain in place. Able to actively dorsiflex/plantar flex. BL Sensory function grossly intact to LE BL. Dorsalis pedis 2+ BL. Lower extremity edema 3+ BL. Calves warm, soft, compressible, non tender to palpation BL. Objective Labs Result Diagrams: 09/25/19 05:17 09/25/19 05:17 Labs: Laboratory Results - last 24 hr 09/24/19 09/24/19 09/24/19 14:30 14:30 14:30 WBC RBC Hgb 9.2 L Hct 27.7 L MCV MCH MCHC RDW Plt Count Neut % (Auto) Lymph % (Auto) [place] % (Auto) Eos % (Auto) Baso % (Auto) Neut # (Auto) Lymph # (Auto) [place] # (Auto) Eos # (Auto) Baso # (Auto) PT INR APTT 46 H Sodium Potassium Chloride Carbon Dioxide BUN Creatinine Estimated GFR BUN/Creatinine Ratio Glucose Calcium Magnesium Total Bilirubin 1.2 Conjugated Bilirubin 0.0 Unconjugated Bilirubin 1.0 AST 53 H ALT 67 H Alkaline Phosphatase 101 Total Protein 5.2 L Albumin 2.4 L Globulin 2.8 Albumin/Globulin Ratio 0.9 L Procalcitonin 09/24/19 09/24/19 09/25/19 18:31 22:15 05:17 WBC 9.1 RBC 2.58 L Hgb 8.5 L Hct 25.1 L MCV 97.1 MCH 33.0 MCHC 33.9 RDW 16.4 H Plt Count 532 H Neut % (Auto) 58.4 Lymph % (Auto) 26.8 [place] % (Auto) 10.3 Eos % (Auto) 3.7 Baso % (Auto) 0.8 Neut # (Auto) 5300 Lymph # (Auto) 2400 [place] # (Auto) 900 Eos # (Auto) 300 Baso # (Auto) 100 PT INR APTT 53 H D 43 H D Sodium Potassium Chloride Carbon Dioxide BUN Creatinine Estimated GFR BUN/Creatinine Ratio Glucose Calcium Magnesium Total Bilirubin Conjugated Bilirubin Unconjugated Bilirubin AST ALT Alkaline Phosphatase Total Protein Albumin Globulin Albumin/Globulin Ratio Procalcitonin 09/25/19 09/25/19 09/25/19 05:17 05:17 05:17 WBC RBC Hgb Hct MCV MCH MCHC RDW Plt Count Neut % (Auto) Lymph % (Auto) [place] % (Auto) Eos % (Auto) Baso % (Auto) Neut # (Auto) Lymph # (Auto) [place] # (Auto) Eos # (Auto) Baso # (Auto) PT INR APTT 58 H D Sodium 133 L Potassium 4.2 Chloride 99 Carbon Dioxide 32 BUN 9 Creatinine 0.40 L Estimated GFR > 60.0 BUN/Creatinine Ratio 22.5 H Glucose 103 Calcium 7.7 L Magnesium 2.3 Total Bilirubin 1.0 Conjugated Bilirubin Unconjugated Bilirubin AST 43 H ALT 55 H Alkaline Phosphatase 93 Total Protein 5.6 L Albumin 2.5 L Globulin 3.1 Albumin/Globulin Ratio 0.8 L Procalcitonin < 0.05 09/25/19 05:17 WBC RBC Hgb Hct MCV MCH MCHC RDW Plt Count Neut % (Auto) Lymph % (Auto) [place] % (Auto) Eos % (Auto) Baso % (Auto) Neut # (Auto) Lymph # (Auto) [place] # (Auto) Eos # (Auto) Baso # (Auto) PT 15.4 H INR 1.3 APTT Sodium Potassium Chloride Carbon Dioxide BUN Creatinine Estimated GFR BUN/Creatinine Ratio Glucose Calcium Magnesium Total Bilirubin Conjugated Bilirubin Unconjugated Bilirubin AST ALT Alkaline Phosphatase Total Protein Albumin Globulin Albumin/Globulin Ratio Procalcitonin Assessment & Plan Post-op Postoperative Procedures: Procedures Operation Date: 09/10/19 07:45 Actual Procedures Side Surgeon p Total Hip Arthroplasty Right Rod Randhawa MD Operation Date: 09/22/19 16:00 Actual Procedures Side Surgeon p Incision and Drainage S/P Hip Right Rod Randhawa MD Postoperative plan narrative: Status post incision and drainage, irrigation debridement right hip hematoma September 22, 2019. Status post right total hip arthroplasty September 10, 2019. Weight-bearing as tolerated and posterior hip precautions. Hemovac drain may be removed when drainage is less than 10 cc per shift. Encourage incentive spirometer. Appreciate hospitalist following her multiple medical issues. TRAVON dressing change ordered Time Spent With Patient Time with patient: less than 15 minutes
--- NOTE | 2019-09-25 14:40 | PT.IPTN ---
Current Diagnoses Cutaneous abscess, unspecified (09/10/19) Unilateral primary osteoarthritis, right hip (09/10/19) Surgery Performed Operation Date: 09/10/19 07:45 Actual Procedures p Total Hip Arthroplasty(Right) - Rod Randhawa MD Operation Date: 09/22/19 16:00 Actual Procedures p Incision and Drainage S/P Hip(Right) - Rod Randhawa MD Physical Therapy Treatment Note M2 PT-IP Current Condition Start: 09/10/19 17:18 Freq: NEEDED Status: Active Protocol: Document 09/21/19 14:27 AW (Rec: 09/21/19 15:00 AW [id number]) Physical Therapy Current Condition Current Condition Evaluation Date 09/21/19 Treatment Diagnosis R PRIETO, a fib w/ RVR, impaired mobility Onset Date 09/10/19 Precautions Posterior Hip Precautions No Hip Flexion > 90 degrees,No Hip Internal Rotation,No Hip Adduction Weight Bearing Status Weight Bearing Status Weight Bear as Tolerated M3 PT-IP Subjective Start: 09/10/19 17:18 Freq: NEEDED Status: Active Protocol: Document 09/25/19 14:05 SP (Rec: 09/25/19 15:01 SP [id number]) Subjective Physical Therapy Visit Type Type Treatment Note Visit Start Time 14:05 Visit Stop Time 14:40 Total Visit Minutes 35 Physical Therapy Visit Comments Patient Comments Pt willing to work with PT. Patient Goals Pt anticipates discharge to [facility] Therapy Pain Assessment Pain Present Pain Present Denied Pain M4 PT-IP Mobility and Gait Start: 09/10/19 17:18 Freq: NEEDED Status: Active Protocol: Document 09/25/19 14:05 SP (Rec: 09/25/19 15:01 SP [id number]) PT-Bed Mobility Assessment Supine to Sit Supine to Sit Moderate Assistance,Maximum Assistance,1 Person Assistance ,Head of Bed Elevated,Bedrails Scooting Scooting to Edge of Bed Moderate Assistance PT-Transfer Assessment Sit to and From Stand Sit to and from Stand Minimal Assistance,1 Person Assistance,Use of Upper Extremities Equipment Transfer Assistive Device Gait Belt,Front Wheeled Walker Transfers Transfer Destination Chair,Bedside Commode Transfer Technique Stand Step Pivot and ambulate using FWW Transfer Ability Level of Assist Standby Assistance,Contact Guard Assistance,Minimal Assistance,1 Person Assistance ,2 Person Assistance,Use of Upper Extremities Comments Mobility Comments Pt was laying in bed when arrived. supine to sittting Min A for RLE repositioning RLE to EOB self LLE, Max initially for SHOW [employer]PERATIONS SUPERVISOR to pull from therapist hand to transition trunk to sitting while using bed rail with LUE, Mod A for trunk balance during scoot to EOB and Min A for R LE repositioning during scoot until B feet on floor then SBA to sit EOB. sit to stand Mod initially then Min rest of sit to stands from chair and commode using FWW for BUE support. SPT bed to chair CGA- Min A using FWW and CGA with good self verbal sequencing and demonstration, then gait using fWW chair to commode approx 10 ft CGA with therapist managing IV pole with cuing for body spacial awareness to back up and sit with proper hand placemetn demonstrated. Pt was able to complete sit to stand front of commode CGA-SBA while therapist assisted hygiene mgt approx 4 min, stable BUE support on FWW. visitor service assistant assisted acquiring another brief and assist with hygiene mgt. Pt required seated rest before returning to chair 10 ft CGA.Pt was seated in chair with legs elevated with chair alarm on and call light and all needs in reach when left. Nursing assistants x2 in room when left. Gait Assessment Gait Gait Assistance Required: Contact Guard Assist,Minimum Assistance,1 Person Assist Distance (Feet) 10 Able to Maintain Weight Bearing Status Yes During Gait Assistive Devices Assistive Device Gait Belt,Front Wheeled Walker Orthotic/Prosthetic Devices or Brace: No Gait Deviations General Gait Pattern Antalgic,Decreased Stride Length,Decreased Feet Clearance,Flexed Trunk,Step-to Gait Factors Limiting Gait Function Factors Limiting Gait Function Decreased Activity Tolerance, Decreased Strength,Limited Range of Motion,Pain,Poor Balance Comments Gait Comments SEE mobility comments. PT ambulated 10 ft x2 using fWW CGA- min A. M5 PT-IP Objective Assessments Start: 09/10/19 17:18 Freq: NEEDED Status: Active Protocol: Document 09/21/19 14:27 AW (Rec: 09/21/19 15:00 AW [id number]) Orientation Orientation/Cognition Level of Alertness Alert Orientation Name,Day of Week,Place, Situation Language Function Ability No Deficits Noted Safety Awareness Decreased Safety Awareness Memory Description Short Term Impaired Gross Range of Motion Upper Extremity ROM Assessment Within Functional Limits Lower Extremity ROM Assessment Bilaterally Impaired Impairments RLE tightness and increase guarding affecting PROM Strength Upper Extremity Strength Assessment Within Functional Limits Lower Extremity Strength Assessment Bilaterally Impaired Hip R: 3+/5 L: 4-/5 Knee R: 3-/5 L: 3+/5 Ankle B: 3+/5 Comments Strength Comments MMT limited secondary to pain Sensation Assessment Sensation Gross Sensation WNL M6 PT-IP Treatment Start: 09/10/19 17:18 Freq: NEEDED Status: Active Protocol: Document 09/25/19 14:05 SP (Rec: 09/25/19 15:01 SP [id number]) Physical Therapy Treatment Exercises Exercises Ankle Pumps,Gluteal Sets,Quad Sets Education Education Provided Safety Other Treatments Other Treatment Performed Pt recalled 09/29 and maintained all hip precautions during mobility. M7 PT-IP Assessment and Plan Start: 09/10/19 17:18 Freq: NEEDED Status: Active Protocol: Document 09/25/19 14:05 SP (Rec: 09/25/19 15:01 SP [id number]) PT Summary Assessment and Plan Potential Rehabilitation Potential Good Status of Condition at Evaluation Evolving Summary Impairments Pain,ROM,Strength,Balance, Coordination,Sensation,Tone, Cognition,Bed Mobility, Transfers,Gait,Activity Tolerance Progress Towards Goals Progressing Toward Goals,Slow Progress due to Activity Tolerance Assessment Summary Pt is improving with gait being able to increase distance slightly with decrease assistance requried. Her main complaint this afternoon was her dizziness but stable vitals 150/74 HR 96 and O2 sat mid 90s at rest and 87-90 % on room air during activity and recovers with proper breathing within in seconds. She was able to advance her RLE during ambulation and continues to put forth good effort. Goals Bed Mobility Goal Minimal Assistance Transfer Goal Minimal Assistance,Front Wheeled Walker Gait Goal Minimal Assistance,Front Wheel Walker Gait Distance 75 Days to Meet Goals 10 Frequency of Treatment Frequency Of Treatment Twice a Day Treatment Plan Physical Therapy Treatment Plan Bed Mobility Training,Transfer Training,Gait Training, Therapeutic Exercise,Balance Retraining,Post Op Education, Discharge Planning,Hot or Cold Pack,Neuromuscular Re-ed, Coordination Retraining,Manual Therapy Other Recommendations and Next Treatment progress ambulation distance ( Focus with chair follow if needed), review ther ex Recommendations To Nursing Amount of Assist Needed 1 Person Assist Discharge Recommendations PT Discharge Recommendations SNF Rehab Transportation Needs at Discharge Wheelchair/Cabulance
[2019-09-25] MEDS: BACLOFEN 10 MG TABLET PO ×2 (15:03→23:21)
--- NOTE | 2019-09-25 15:33 | PC.NURSE ---
Patient is up in chair at this time, and unable to visualize right hip TRAVON dressing. Evening shift nurse will change or attend to as soon as patient back in bed. Call light within reach.
--- NOTE | 2019-09-25 17:43 | DI.RAD.S_ITS ---
PROCEDURE: XR CHEST FOR PICC 1V INDICATIONS: placement review, see previous film, pulled back 4 cm TECHNIQUE: One view of the chest was acquired. COMPARISON: [facility], CR, XR CHEST FOR PICC 1V, 09/25/2019, 10:18. [facility], CR, XR CHEST 1V, 09/13/2019, 7:43. FINDINGS: Surgical changes and devices: Left-sided PICC appears to be retracted with the tip now in the left subclavian vein overlying the sternal border. Post median sternotomy. Lungs and pleura: Lungs are clear. No pleural effusions or pneumothorax. Mediastinum: Mediastinal contours appear normal. Heart size is normal. Bones and chest wall: No suspicious bony lesions. Overlying soft tissues appear unremarkable. IMPRESSION: Retraction of the left-sided PICC with the tip now projecting or the left sternal border likely in the left subclavian vein. Dictated by: Hussain Carter M.D. on 09/25/2019 at 18:30 Approved by: Hussain Carter M.D. on 09/25/2019 at 18:33
[2019-09-25 17:58] LABS: PTT Partial Thromboplastin Tim 49 SECONDS (26.4-36.2)
--- NOTE | 2019-09-25 18:10 | PC.NURSE ---
Picc line post chest film. line is looping back. Line pulled back 4cm and repete chest xray for line placement and line is in upper svc with no loop noted. Both lines flush well and able to draw back blood with no problems. Dressing reapplied.
[2019-09-25] MEDS: WARFARIN 2 MG TABLET PO (18:23)
[2019-09-25] MEDS: PANTOPRAZOLE 40 MG TABLET PO (20:40)
[2019-09-25] MEDS: MELATONIN 3 MG TABLET 6 MG PO (20:40)
[2019-09-25] MEDS: ROSUVASTATIN 10 MG TABLET 40 MG PO (20:41)
[2019-09-25] MEDS: EZETIMIBE 10 MG TABLET PO (20:42)
[2019-09-25 23:53] LABS: PTT Partial Thromboplastin Tim 69 SECONDS (26.4-36.2)
[2019-09-26] VITALS (7 sets, daily range): BP systolic 109–118; BP diastolic 49–60; PULSE 81–94; RESP 16–19; TEMP 36.3–37.2; O2SAT 96–98
--- NOTE | 2019-09-26 03:36 | PC.NURSE ---
Addendum entered by Crissy Ibarra R.N. 09/26/19 06:12: Medicated with Tramadol for complaint of generalized (right hip/leg/back) pain with 3/10 severity. Original Note: Patient seen and assessed at 2351. Is alert and oriented. Breath sounds CTA but diminished at bases with RA sat of 97%. HRR with telemetry reading of SR w/BBB. Denies nausea. BT present and abdomen is soft. Is incontinent of urine. Being repositioned/changed q2h as able to prevent skin breakdown. TRAVON dressing to right hip is CDI. Hemovac is intact and compressed. Has non pitting bilateral LE which has decreased over past couple days. Legs are being kept elevated both by raising foot of bed and with pillows under legs. Complaining of muscle spasms in right lower leg so was medicated with Baclofen. Denies any other pain/discomfort. Is very weak in right LE and not able to even move the leg by herself. CMS is intact and denies any numbness in right foot tonight (was present last night). Wearing bilateral calf SCD's. Heparin gtt continues to infuse via PICC at 25ml/hr with last PTT within target range. Gait not assessed as patient not out of bed at night. Fall risk score is high and bed alarm is activated.
[2019-09-26 06:05] LABS: INR 1.4 (0.9-1.3); Prothrombin Time 16.3 SECONDS (10.1-12.7)
[2019-09-26 06:06] LABS: Add Manual Diff / Slide Review NO; Basophils Absolute Auto 100 /uL (0-100); Basophils Percent Auto 1.1 % (0-2); Eosinophils Absolute Auto 400 /uL (0-450); Eosinophils Percent Auto 4.8 % (2-4); Hematocrit 26.2 % (36-46); Lymphocytes Absolute Auto 2200 /uL (1100-4500); Lymphocytes Percent Auto 27.9 % (25-40); Mean Corpuscular HGB Conc 34.2 % (30-36); Mean Corpuscular Volume 96.5 fL (80-100); Monocytes Absolute Auto 800 /uL (0-900); Monocytes Percent Auto 9.9 % (3-14); Neutrophils Absolute Auto 4500 /uL (1500-7000); Neutrophils Percent Auto 56.3 % (50-75); Platelet Count 516 X10^3/uL (150-400); Red Blood Cell Count 2.71 X10^6/uL (4.0-5.2); Red Cell Distribution Width 16.7 % (11.6-14.8); White Blood Cell Count 7.9 X10^3/uL (4.5-11.0)
[2019-09-26] MEDS: LEVOTHYROXINE 125 MCG TABLET PO (06:06)
[2019-09-26] MEDS: TRAMADOL 50 MG TABLET 100 MG PO ×2 (06:08→16:34)
[2019-09-26 06:22] LABS: PTT Partial Thromboplastin Tim 69 SECONDS (26.4-36.2)
[2019-09-26] MEDS: HEPARIN DRIP 25,000 UNIT/500 ML IV.SOLN 25 UNIT IV (07:38)
[2019-09-26] MEDS: carvediloL 3.125 MG TABLET PO ×2 (09:42→21:59)
[2019-09-26] MEDS: NYSTATIN CREAM 30 GM 1 APPLIC TOP ×3 (09:42→20:56)
[2019-09-26] MEDS: DOCUSATE 100 MG CAPSULE PO ×2 (09:42→20:55)
--- NOTE | 2019-09-26 12:18 | PC.NURSE ---
Nurse Note Patient alert and oriented this shift. Hemovac remains in place and to suction. Heparin drip continues per orders. Patient offered frequent repositioning. Care continues.
--- NOTE | 2019-09-26 12:30 | OT.IP.TRT ---
Current Diagnoses Cutaneous abscess, unspecified (09/10/19) Unilateral primary osteoarthritis, right hip (09/10/19) Surgery Performed Operation Date: 09/10/19 07:45 Actual Procedures p Total Hip Arthroplasty(Right) - Rod Randhawa MD Operation Date: 09/22/19 16:00 Actual Procedures p Incision and Drainage S/P Hip(Right) - Rod Randhawa MD Occupational Therapy Treatment Note M2 OT-IP Current Condition Start: 09/16/19 17:37 Freq: Status: Active Protocol: Document 09/23/19 16:15 [facility] (Rec: 09/23/19 16:55 [facility] [id number]) Occupational Therapy Current Condition Current Condition Evaluation Date 09/23/19 Treatment Diagnosis s/p I and D of RTHA Diagnosis Onset Date 09/10/19 Post Operative Precautions Posterior Hip Precautions No Hip Flexion > 90 degrees,No Hip Internal Rotation,No Hip Adduction Weight Bearing Status Weight Bearing Status Weight Bear as Tolerated M3 OT- IP Subjective and Pain Start: 09/16/19 17:37 Freq: Status: Active Protocol: Document 09/26/19 12:30 [facility] (Rec: 09/26/19 13:01 [facility] [id number]) OT- Subjective Occupational Therapy Visit Type Type Treatment Note Visit Start Time 11:46 Visit Stop Time 12:30 Total Visit Minutes 44 Occupational Therapy Visit Comments Patient Comments Pt willing to get up and agreeable to try to walk to the sink in order to do grooming needs while standing with FWW. Patient/Caregiver Goals To be able to take care of herself. OT Pain Assessment Pain When Pain Assessed At Rest Pain Present Pain Present Pain Reported Location Left Toe Intensity 7 Scale Used Numeric (1 - 10) M4 OT- IP ADL's Start: 09/16/19 17:37 Freq: Status: Active Protocol: Document 09/26/19 12:30 [facility] (Rec: 09/26/19 13:01 [facility] [id number]) OT [id number] Comments OT Self-Feeding Comments Not at meal time. OT ADL-Grooming General Evaluation Grooming Ability Standby Assistance Comments OT Grooming Comments Able to brush hair while standing at the sink with FWW and CGA for safety. OT ADL-Oral Care Comments Oral Care Comments Pt states to brush her teeth after lunch. OT ADL-Dressing General Eval Lower Body Dressing Ability Total Assistance Areas Needing Assistance Underpants/Brief,Socks OT ADL-Toileting General Evaluation Toileting Ability Total Assistance Areas Needing Assistance Manage Clothing,Perform Perineal Hygiene Comments OT Toileting Comments Pt incontinent, MODA X 1 to stand from the bed and CGA with FWW to stand while assist for hygiene and brief change. M5 OT- IP IADL's Start: 09/16/19 17:37 Freq: Status: Active Protocol: Document 09/23/19 16:15 [facility] (Rec: 09/23/19 16:55 [facility] [id number]) OT-Instrumental Activities of Daily Living Medication Management Medication Management Comments Prior pt able to do on her own , however pt's daughter that will be able to stay with her and assist. Money Management Money Management Comments Pt's daughter states will be assisting her. Meal Preparation Meal Preparation Caregiver Provides Assist Acupuncturist Acupuncturist Caregiver Provides Assist Driving Driving Caregiver Provides Assist M6 OT- IP Functional Cognition Start: 09/16/19 17:37 Freq: Status: Active Protocol: Document 09/26/19 12:30 [facility] (Rec: 09/26/19 13:01 [facility] [id number]) Cognitive Factors Limiting Selfcare Function Cognitive Ability Level of Alertness Alert Patient Orientation Name,Place,Situation Attention Span Ability Capable of Focused Attention, Unable to Sustain Attention Ability to Follow Commands Able to Follow One Step Commands Safety Awareness No Deficits Noted Problem Solving Ability Needs Assist to Identify Solutions Cognitive Comments Cognitive Assessment Comments Pt able to states step by step instructions in order to follow her hip precautions. Pt needing cues to try to keep the FWW in front of her a little more as tends to get too close to it at times. Pt very cooperative, motivated and still needing some encouragement to participate in new tasks. Pt able to stand at the sink with FWW for grooming needs today for the first time. M7 OT- IP Mobility and Balance Start: 09/16/19 17:37 Freq: Status: Active Protocol: Document 09/26/19 12:30 [facility] (Rec: 09/26/19 13:01 [facility] [id number]) OT- Bed Mobility Assessment Supine to Sit Supine to Sit Assist Maximum Assistance,2 Person Assistance,Bedrails OT-Transfer Assessment Sit to and From Stand Sit to and from Stand Contact Guard Assistance, Minimal Assistance,Moderate Assistance,1 Person Assistance ,2 Person Assistance Transfers Transfer Ability Minimal Assistance,1 Person Assistance Technique Transfer Destination Bed,Bedside Commode,Chair Devices Transfer Assistive Devices Gait Belt,Front Wheeled Walker Comments Mobility Comments Pt still needing extensive assist for bed mobilty needs, however much improved from sit to stand from initial MODA X 2 to CGA x1 pending the height of the surface transferring to and from. OT- Balance Assessment Sitting Balance and Reactions Static Sitting Balance Ability Good Dynamic Sitting Balance Ability Fair Standing Balance and Reactions Static Standing Balance Ability Fair M8 OT- IP Objective Assessments Start: 09/16/19 17:37 Freq: Status: Active Protocol: Document 09/23/19 16:15 [facility] (Rec: 09/23/19 16:55 [facility] [id number]) OT Gross Range of Motion Upper Extremity Range of Motion Assessment Within Functional Limits OT Strength Comments Strength Comments From proxiaml to distal 4/5 to 4-/5. M9 OT- IP Assessment and Plan Start: 09/16/19 17:37 Freq: Status: Active Protocol: Document 09/26/19 12:30 [facility] (Rec: 09/26/19 13:01 [facility] [id number]) OT Summary Assessment and Plan Potential Rehabilitation Potential Good Analytic Complexity at Evaluation Low Summary OT Impairments Pain,Balance,Functional Cognition,Functional Mobility, Grooming,Dressing,Toileting, Bathing,Toilet Transfers, Shower Transfers,Activity Tolerance Progress Towards Goals Progressing Toward Goals,Slow Progress due to Pain Assessment Summary Pt making improvement and now able to tolerate standing at the sink with FWW for grooming needs. Pt will benefit form skilled rehab prior to going home. Pt very motivated to be able to care for herself again . Pt complaining of left 2nd toe pain today, nursing notified. Goals Grooming Goal Standby Assistance Dressing Goal Minimal Assistance Toileting Goal Moderate Assistance Bathing Goal Moderate Assistance Toilet Transfer Goal Contact Guard Assistance Shower Transfer Goal Minimal Assistance Patient/Caregiver Education Goal Demonstrate Post-Op Precautions,Caregiver Independent Assisting Patient Days to Meet Goals 3 Frequency of Treatment Frequency Of Treatment Once a Day Treatment Plan OT Treatment Plan ADL Training,Functional Cognition Training,Functional Mobility,Patient/Family Education,Discharge Planning Other Treatment Recommendations and Next Stand at sink for all grooming Treatment Focus needs with FWW. Discharge Recommendations OT Discharge Recommendations SNF Rehab Home Equipment Needs [facility] [place] Needs at Discharge Wheelchair/Cabulance
--- NOTE | 2019-09-26 12:54 | PT.IPTN ---
Current Diagnoses Cutaneous abscess, unspecified (09/10/19) Unilateral primary osteoarthritis, right hip (09/10/19) Surgery Performed Operation Date: 09/10/19 07:45 Actual Procedures p Total Hip Arthroplasty(Right) - Rod Randhawa MD Operation Date: 09/22/19 16:00 Actual Procedures p Incision and Drainage S/P Hip(Right) - Rod Randhawa MD Physical Therapy Treatment Note M2 PT-IP Current Condition Start: 09/10/19 17:18 Freq: NEEDED Status: Active Protocol: Document 09/26/19 11:40 NFW (Rec: 09/26/19 12:53 NFW [id number]) Physical Therapy Current Condition Precautions Posterior Hip Precautions No Hip Flexion > 90 degrees,No Hip Internal Rotation,No Hip Adduction Weight Bearing Status Weight Bearing Status Full Weight Bearing M3 PT-IP Subjective Start: 09/10/19 17:18 Freq: NEEDED Status: Active Protocol: Document 09/26/19 11:40 NFW (Rec: 09/26/19 12:53 NFW [id number]) Subjective Physical Therapy Visit Type Type Treatment Note Visit Start Time 11:40 Visit Stop Time 12:30 Total Visit Minutes 50 Notes Co-treat with OT Number of BAKERY SUPERVISOR Visits 0 Physical Therapy Visit Comments Patient Comments Pt anxious to walk. Patient Goals Pt anticipates discharge to [facility] Therapy Pain Assessment Location Left Toe Intensity 7 Scale Used Numeric (1 - 10) Description Burning,Sharp,Tender M4 PT-IP Mobility and Gait Start: 09/10/19 17:18 Freq: NEEDED Status: Active Protocol: Document 09/26/19 11:40 NFW (Rec: 09/26/19 12:53 NFW [id number]) PT-Bed Mobility Assessment Supine to Sit Supine to Sit Moderate Assistance,Maximum Assistance,1 Person Assistance ,Head of Bed Elevated,Bedrails Scooting Scooting to Edge of Bed Moderate Assistance PT-Transfer Assessment Sit to and From Stand Sit to and from Stand Contact Guard Assistance,1 Person Assistance,Use of Upper Extremities Equipment Transfer Assistive Device Gait Belt,Front Wheeled Walker Transfers Transfer Destination Chair,Bedside Commode Transfer Ability Level of Assist Contact Guard Assistance, Minimal Assistance,1 Person Assistance,Use of Upper Extremities Comments Mobility Comments Pt requires mod assist of 2 with bed mobilities to sitting and scooting to EOB. Assists initially on own to lift and reposition RLE but requires full assist to complete. Once sitting her ability to sit to stand improved from mod to min to CGA. Gait Assessment Gait Gait Assistance Required: Contact Guard Assist,1 Person Assist Distance (Feet) 16 Able to Maintain Weight Bearing Status Yes During Gait Assistive Devices Assistive Device Gait Belt,Front Wheeled Walker Orthotic/Prosthetic Devices or Brace: No Gait Deviations General Gait Pattern Antalgic,Decreased Stride Length,Decreased Feet Clearance,Flexed Trunk,Step-to Gait,Wide Based Gait Factors Limiting Gait Function Factors Limiting Gait Function Decreased Activity Tolerance, Decreased Strength,Limited Range of Motion,Pain,Poor Balance Comments Gait Comments Pt ambulated from bed to commode positioned by sink then to chair. Pt was able to stand at sink for some grooming. CGA mainly with ambulation. Verbal cuing for proper progression in using FWW. M5 PT-IP Objective Assessments Start: 09/10/19 17:18 Freq: NEEDED Status: Active Protocol: Document 09/21/19 14:27 AW (Rec: 09/21/19 15:00 AW [id number]) Orientation Orientation/Cognition Level of Alertness Alert Orientation Name,Day of Week,Place, Situation Language Function Ability No Deficits Noted Safety Awareness Decreased Safety Awareness Memory Description Short Term Impaired Gross Range of Motion Upper Extremity ROM Assessment Within Functional Limits Lower Extremity ROM Assessment Bilaterally Impaired Impairments RLE tightness and increase guarding affecting PROM Strength Upper Extremity Strength Assessment Within Functional Limits Lower Extremity Strength Assessment Bilaterally Impaired Hip R: 3+/5 L: 4-/5 Knee R: 3-/5 L: 3+/5 Ankle B: 3+/5 Comments Strength Comments MMT limited secondary to pain Sensation Assessment Sensation Gross Sensation WNL M6 PT-IP Treatment Start: 09/10/19 17:18 Freq: NEEDED Status: Active Protocol: Document 09/26/19 11:40 NFW (Rec: 09/26/19 12:53 NFW [id number]) Physical Therapy Treatment Exercises Exercises Ankle Pumps,Quad Sets,Heel Slides Education Education Provided Precautions,Weight Bearing Status Other Treatments Other Treatment Performed Pt recalled 3/3 and maintained all hip precautions during mobility. M7 PT-IP Assessment and Plan Start: 09/10/19 17:18 Freq: NEEDED Status: Active Protocol: Document 09/26/19 11:40 NFW (Rec: 09/26/19 12:53 NFW [id number]) PT Summary Assessment and Plan Potential Rehabilitation Potential Good Status of Condition at Evaluation Evolving Summary Impairments Pain,ROM,Strength,Balance, Coordination,Sensation,Tone, Cognition,Bed Mobility, Transfers,Gait,Activity Tolerance Progress Towards Goals Progressing Toward Goals,Slow Progress due to Activity Tolerance Assessment Summary Pt continuing to show improvement in performance and confidence in her walking ability. Her main complaint is pain in her left second toe with the sense that there is something under the DIP joint. Some redness noted at distal phalanx. Nursing informed. Goals Bed Mobility Goal Minimal Assistance Transfer Goal Minimal Assistance,Front Wheeled Walker Gait Goal Contact Guard Assistance,Front Wheel Walker Gait Distance 75 Days to Meet Goals 10 Frequency of Treatment Frequency Of Treatment Twice a Day Treatment Plan Physical Therapy Treatment Plan Bed Mobility Training,Transfer Training,Gait Training, Therapeutic Exercise,Balance Retraining,Post Op Education, Discharge Planning,Hot or Cold Pack,Neuromuscular Re-ed, Coordination Retraining,Manual Therapy Other Recommendations and Next Treatment Gradual increase of activity Focus as possible with each treatment. Recommendations To Nursing Amount of Assist Needed 1 Person Assist,2 Person Assist Discharge Recommendations PT Discharge Recommendations SNF Rehab
--- NOTE | 2019-09-26 14:43 | ED.CONSULT ---
ED Provider Consult/Code Note General Date Patient Seen: 09/26/19 Time Patient Seen: 14:43 Reason for Admission: 85825 Right Total Hip Arthroplasty Events leading to Consult/Code: code blue response. Pt found on floor, pulseless. Respiratory Auscultation: clear to auscultation bilaterally and vesicular breath sounds ET Tube Size: 7 Tube Secured Depth (cm): 15 Tube Secured Location: lips Tube Placement Confirmation: Visualized tube passing through cords Lines Placed Central Line Lumen Inserted: triple Ultrasound Used for Placement: No Care Provided Description of care provided: [id number]
--- NOTE | 2019-09-26 15:39 | PM.PN.1 ---
Subjective Subjective Date Patient Seen: 09/26/19 Time Patient Seen: 15:39 Interval history: Patient is POD# 4 s/p incision and drainage, irrigation debridement right hip hematoma and POD#16 s/p right total hip arthroplasty with Dr. Randhawa. Pain has been mild to moderate with activity. Denies any chest pain, shortness of breath, nausea or vomiting. Exam Vital Signs (past 8 hours): - 09/26/19 08:55 09/26/19 09:42 09/26/19 11:59 Temperature 98.4 F 98.5 F Pulse Rate 88 94 H 82 Respiratory Rate 18 16 Blood Pressure 109/60 118/59 L 109/49 L Pulse Oximetry 97 97 Oxygen Delivery Method Room Air Oxygen Flow Rate 0 Narrative Exam Narrative: Pleasant 79 year old female resting in bed. Alert and oriented in no acute distress. TRAVON dressings in place are CDI and functioning. Hemovac in place with minimal drainage in reservoir. Per chart 20cc and 50cc over the last 2 shifts. Motor intact in distal extremity. Objective Labs Result Diagrams: 09/26/19 05:41 09/25/19 05:17 Labs: Laboratory Results - last 24 hr 09/25/19 09/25/19 09/26/19 17:33 23:32 05:41 WBC 7.9 RBC 2.71 L Hgb 9.0 L Hct 26.2 L MCV 96.5 MCH 33.0 MCHC 34.2 RDW 16.7 H Plt Count 516 H Neut % (Auto) 56.3 Lymph % (Auto) 27.9 [place] % (Auto) 9.9 Eos % (Auto) 4.8 H Baso % (Auto) 1.1 Neut # (Auto) 4500 Lymph # (Auto) 2200 [place] # (Auto) 800 Eos # (Auto) 400 Baso # (Auto) 100 PT INR APTT 49 H D 69 H D 09/26/19 09/26/19 05:41 05:41 WBC RBC Hgb Hct MCV MCH MCHC RDW Plt Count Neut % (Auto) Lymph % (Auto) [place] % (Auto) Eos % (Auto) Baso % (Auto) Neut # (Auto) Lymph # (Auto) [place] # (Auto) Eos # (Auto) Baso # (Auto) PT 16.3 H INR 1.4 H APTT 69 H Assessment & Plan Assessment & Plan narrative: Patient progressing slowly with PT, remains 1-2 person assist. Will require discharge to SNF, has been accepted by [facility]. Hemovac drain remains in place, may be removed when drainage is less than 10 cc per shift. She has restarted Coumadin, bridging with Heparin. Appreciate medicine following this complex patient.
[2019-09-26] MEDS: IRON SUCROSE 200 MG in SODIUM CHLORIDE 0.9% 100 ML 220 ML IV (16:29)
[2019-09-26] MEDS: WARFARIN 2.5 MG TABLET PO (16:36)
[2019-09-26] MEDS: BACLOFEN 10 MG TABLET PO (16:36)
--- NOTE | 2019-09-26 16:46 | PT.IPTN ---
Current Diagnoses Cutaneous abscess, unspecified (09/10/19) Unilateral primary osteoarthritis, right hip (09/10/19) Surgery Performed Operation Date: 09/10/19 07:45 Actual Procedures p Total Hip Arthroplasty(Right) - Rod Randhawa MD Operation Date: 09/22/19 16:00 Actual Procedures p Incision and Drainage S/P Hip(Right) - Rod Randhawa MD Physical Therapy Treatment Note M2 PT-IP Current Condition Start: 09/10/19 17:18 Freq: NEEDED Status: Active Protocol: Document 09/26/19 16:02 NFW (Rec: 09/26/19 16:46 NFW [id number]) Physical Therapy Current Condition Precautions Posterior Hip Precautions No Hip Flexion > 90 degrees,No Hip Internal Rotation,No Hip Adduction Weight Bearing Status Weight Bearing Status Full Weight Bearing M3 PT-IP Subjective Start: 09/10/19 17:18 Freq: NEEDED Status: Active Protocol: Document 09/26/19 16:02 NFW (Rec: 09/26/19 16:46 NFW [id number]) Subjective Physical Therapy Visit Type Type Treatment Note Visit Start Time 16:02 Visit Stop Time 16:33 Total Visit Minutes 31 Number of RUSTIC FENCE BUILDER Visits 0 Physical Therapy Visit Comments Patient Comments Pt in bed and willing to work with PT. Patient Goals Pt anticipates discharge to [facility]. Looking forward to rehab. M4 PT-IP Mobility and Gait Start: 09/10/19 17:18 Freq: NEEDED Status: Active Protocol: Document 09/26/19 16:02 NFW (Rec: 09/26/19 16:46 NFW [id number]) PT-Bed Mobility Assessment Supine to Sit Supine to Sit Moderate Assistance,Maximum Assistance,1 Person Assistance ,Head of Bed Elevated,Bedrails Scooting Scooting to Edge of Bed Moderate Assistance PT-Transfer Assessment Sit to and From Stand Sit to and from Stand Contact Guard Assistance,1 Person Assistance,Use of Upper Extremities Equipment Transfer Assistive Device Gait Belt,Front Wheeled Walker Transfers Transfer Destination Chair,Bedside Commode Transfer Ability Level of Assist Contact Guard Assistance, Minimal Assistance,1 Person Assistance,Use of Upper Extremities Comments Mobility Comments Most assist supine to sitting with mod assist of 2. Mod assist of 2 to scoot to EOB. Once sitting cuing required to remind pt to place RLE forward to stand. Standing CGA. Gait Assessment Gait Gait Assistance Required: Contact Guard Assist,1 Person Assist Distance (Feet) 16 Able to Maintain Weight Bearing Status Yes During Gait Assistive Devices Assistive Device Gait Belt,Front Wheeled Walker Orthotic/Prosthetic Devices or Brace: No Gait Deviations General Gait Pattern Antalgic,Decreased Stride Length,Decreased Feet Clearance,Flexed Trunk,Step-to Gait,Wide Based Gait Factors Limiting Gait Function Factors Limiting Gait Function Decreased Activity Tolerance, Decreased Strength,Limited Range of Motion,Pain,Poor Balance Comments Gait Comments Pt again ambulated from bed to commode to chair. CGA throughout. Cuing for proper sequence in using FWW. M5 PT-IP Objective Assessments Start: 09/10/19 17:18 Freq: NEEDED Status: Active Protocol: Document 09/21/19 14:27 AW (Rec: 09/21/19 15:00 AW [id number]) Orientation Orientation/Cognition Level of Alertness Alert Orientation Name,Day of Week,Place, Situation Language Function Ability No Deficits Noted Safety Awareness Decreased Safety Awareness Memory Description Short Term Impaired Gross Range of Motion Upper Extremity ROM Assessment Within Functional Limits Lower Extremity ROM Assessment Bilaterally Impaired Impairments RLE tightness and increase guarding affecting PROM Strength Upper Extremity Strength Assessment Within Functional Limits Lower Extremity Strength Assessment Bilaterally Impaired Hip R: 3+/5 L: 4-/5 Knee R: 3-/5 L: 3+/5 Ankle B: 3+/5 Comments Strength Comments MMT limited secondary to pain Sensation Assessment Sensation Gross Sensation WNL M6 PT-IP Treatment Start: 09/10/19 17:18 Freq: NEEDED Status: Active Protocol: Document 09/26/19 16:02 NFW (Rec: 09/26/19 16:46 NFW [id number]) Physical Therapy Treatment Education Education Provided Precautions,Weight Bearing Status M7 PT-IP Assessment and Plan Start: 09/10/19 17:18 Freq: NEEDED Status: Active Protocol: Document 09/26/19 16:02 NFW (Rec: 09/26/19 16:46 NFW [id number]) PT Summary Assessment and Plan Potential Rehabilitation Potential Good Status of Condition at Evaluation Evolving Summary Impairments Pain,ROM,Strength,Balance, Coordination,Sensation,Tone, Cognition,Bed Mobility, Transfers,Gait,Activity Tolerance Progress Towards Goals Progressing Toward Goals,Slow Progress due to Activity Tolerance Assessment Summary Continuing to progress. Pace in ambulation notably improved . Most assist needed with bed mobilities. Goals Bed Mobility Goal Minimal Assistance Transfer Goal Minimal Assistance,Front Wheeled Walker Gait Goal Contact Guard Assistance,Front Wheel Walker Gait Distance 75 Days to Meet Goals 10 Frequency of Treatment Frequency Of Treatment Twice a Day Treatment Plan Physical Therapy Treatment Plan Bed Mobility Training,Transfer Training,Gait Training, Therapeutic Exercise,Balance Retraining,Post Op Education, Discharge Planning,Hot or Cold Pack,Neuromuscular Re-ed, Coordination Retraining,Manual Therapy Other Recommendations and Next Treatment Gradual increase of activity Focus as possible with each treatment. Recommendations To Nursing Amount of Assist Needed 1 Person Assist,2 Person Assist Discharge Recommendations PT Discharge Recommendations SNF Rehab
--- NOTE | 2019-09-26 19:35 | PM.PN.1 ---
Subjective Subjective Date Patient Seen: 09/26/19 Interval history: Glenys Munoz is a 79-year-old female with a past medical history significant for coronary artery disease status post CABG x1 vessel, cardiomyopathy, left bundle branch block, aortic stenosis status post mechanical aortic valve on warfarin, hypertension, hyperlipidemia, hypothyroidism, osteoarthritis, osteoporosis, restless leg syndrome, and morbid obesity who presented for elective right total hip arthroplasty. Medicine team was consulted to manage patient's atrial fibrillation with RVR, but has been involved with multiple medical issues over the course of her stay including acute blood loss secondary to anticoagulation for mechanical aortic valve and postoperative hypotension. Patient is POD# 4 s/p incision and drainage, irrigation debridement right hip hematoma and POD#16 s/p right total hip arthroplasty with Dr. Randhawa. She did much better mobilized with physical therapy today. She denies dyspnea or chest pain. Exam Vital Signs (past 8 hours): - 09/26/19 11:59 09/26/19 17:11 Temperature 98.5 F 98.9 F Pulse Rate 82 86 Respiratory Rate 16 18 Blood Pressure 109/49 L 110/54 L Pulse Oximetry 97 96 Oxygen Delivery Method Room Air Oxygen Flow Rate 0 Narrative Exam Narrative: General: Alert and pleasant in no distress lying in bed Lungs: Clear to auscultation Heart: Regular rhythm Extremities: Bilateral mild pedal edema. Right hip with dressing in place C/D/I with surrounding minimal and improved ecchymoses and edema. Two drains in place with minimal sanguinous fluid. Psychiatric: Affect normal, well oriented Objective Labs Result Diagrams: 09/26/19 05:41 09/25/19 05:17 Labs: Laboratory Results - last 24 hr 09/25/19 09/26/19 09/26/19 23:32 05:41 05:41 WBC 7.9 RBC 2.71 L Hgb 9.0 L Hct 26.2 L MCV 96.5 MCH 33.0 MCHC 34.2 RDW 16.7 H Plt Count 516 H Neut % (Auto) 56.3 Lymph % (Auto) 27.9 [place] % (Auto) 9.9 Eos % (Auto) 4.8 H Baso % (Auto) 1.1 Neut # (Auto) 4500 Lymph # (Auto) 2200 [place] # (Auto) 800 Eos # (Auto) 400 Baso # (Auto) 100 PT 16.3 H INR 1.4 H APTT 69 H D 09/26/19 05:41 WBC RBC Hgb Hct MCV MCH MCHC RDW Plt Count Neut % (Auto) Lymph % (Auto) [place] % (Auto) Eos % (Auto) Baso % (Auto) Neut # (Auto) Lymph # (Auto) [place] # (Auto) Eos # (Auto) Baso # (Auto) PT INR APTT 69 H Assessment & Plan Assessment & Plan narrative: Glenys Munoz is a 79-year-old female with a past medical history significant for coronary artery disease status post CABG x1 vessel, cardiomyopathy, left bundle branch block, aortic stenosis status post mechanical aortic valve on warfarin, hypertension, hyperlipidemia, hypothyroidism, osteoarthritis, osteoporosis, restless leg syndrome, and morbid obesity who presented for elective right total hip arthroplasty. Medicine team was consulted to manage patient's atrial fibrillation with RVR, but has been involved with multiple medical issues over the course of her stay including acute blood loss secondary to anticoagulation for mechanical aortic valve and postoperative hypotension. 1. Acute blood loss anemia, secondary to anticoagulation for mechanical aortic valve, now status post I&D with washout and evacuation of large hematoma, not present on admission. Resolving. -Patient is now status post I&D with washout and evacuation of large hematoma. -Patient has received a total of 5 units PRBC. -Hemoglobin stable. Transfusion goal hemoglobin < 8.0. -Received Venofer 200 mg x 1 on 09/26/2019. Continue ferrous gluconate 324 mg daily. 2. Acute postoperative hypotension in setting of chronic hypertension, not present on admission. Ongoing. -Patient was initially hypotensive postoperative due to acute blood loss. Her blood pressure improved with IV fluid and PRBCs administration. Patient's blood pressure continues to be labile. -Initially held antihypertensives including carvedilol 25 mg twice daily and lisinopril 5 mg daily at bedtime. Restarted carvedilol at decreased dose due to labile blood pressure from 25 mg to 3.125 mg twice daily for heart rate control. Continue to hold lisinopril 5 mg daily at bedtime. 3. Paroxysmal atrial fibrillation with RVR, not present on admission. RVR resolved. -Patient had atrial fibrillation following 1st hip surgery with instability requiring cardioversion. Now stable in sinus rhythm. -TSH within normal limits. -Electrolytes within normal limits. Continue to monitor electrolytes closely and replete as necessary. Goal K > 4.0 and Mg > 2.0. -Echocardiogram was technically difficult and demonstrated aortic valve is not well visualized, valve type is not known, transvalvular velocities and mean gradient are similar to the reports from the outside hospital, there is moderate to severe mitral annular calcification, more prominent in the posterior annulus with moderate mitral stenosis. Mean gradient is 6 mmHg at heart rate of 84 bpm, left atrium is severely dilated, right ventricle is at the upper limits of normal in size; RV systolic function is normal, RVSP 43 mmHg based on an estimated right atrial pressure of 3 mm Hg. -Received amiodarone 150 mg bolus and 24 hour gtt per protocol. Amiodarone discontinued due to rising LFTs. -Received digoxin 250 mcg IV every 4 hours x 2 doses then discontinued as patient was cardioverted to sinus rhythm. -Patient had successful cardioversion x 2 to sinus rhythm and has since went into and out of atrial fibrillation. -Restarted carvedilol at decreased dose due to labile blood pressure from 25 mg to 3.125 mg twice daily for heart rate control. Continue to re-evaluate rate control and adjust dose as necessary. 4. History of mechanical aortic valve, chronic, present admission. Stable. -on heparin gtt to bridge until INR therapeutic. Per cardiology at [facility], in future do not bridge patient with lovenox and heparin gtt instead. -receive warfarin 2 mg on 09/24 and 09/25, warfarin increase to 2.5 mg on 09/26. Continue warfarin 2.5 mg daily at 1700 to slowly get to goal INR to 2.0-3.0. Continue to monitor INR daily. 5. Likely acute on chronic mild transaminitis, unclear if present on admission. Resolving. -Likely medication induced and related to amiodarone and acetaminophen versus fatty liver disease. -Per patient's cardiology group at [facility] held amiodarone as LFTs are elevating. Also held acetaminophen. -LFTs continue to trend downward. -Liver ultrasound demonstrated increased hepatic echogenicity most consistent with hepatic steatosis and gallbladder is mildly prominent with gallstones present but no gallbladder wall thickening, sonographic Chatman's sign, or pericholecystic fluid to suggest acute cholecystitis. 6. DJD status post right total arthroplasty, acute on chronic, present on admission. Improving. -Status post right total hip arthroplasty on 09/12 and I&D with washout and evacuation of hematoma on 09/22/2019. -Continue postoperative and pain management per Orthopedic surgery. -Implemented and continue bowel regimen. -per Ortho, DC Hemovac when drainage less than 10 cc per shift 7. Type 2 [place], not present on admission. Resolved. -As anticipated patient had troponin leak due to demand ischemia in setting of atrial fibrillation with RVR and later had a cardioversion x2. -Patient denies chest pain or ACS symptoms. 8. CAD, chronic, present on admission. Stable. -Patient has history of CABG x1 vessel. -Patient endorsed lightheadedness and dizziness with diaphoresis due to arrhythmia which has resolved with cardioversion. Denies chest pain or ACS symptoms. -Carvedilol has since been resumed as above. Continue to hold aspirin and lisinopril. Continue rosuvastatin 40 mg and ezetimibe 10 mg at bedtime. 9. Hypothyroidism, chronic condition, present on admission, stable -TSH normal at 3.93. Continue levothyroxine 125 mcg daily. Code status: Full code. No formal health directive per patient, however patient designates her daughters Sharri and Angela, as surrogate decision makers. VTE prophylaxis: Warfarin and SCDs. Patient with improving course. Can discharge to longterm rehab when off of heparin drip.
[2019-09-26] MEDS: PANTOPRAZOLE 40 MG TABLET PO (20:55)
[2019-09-26] MEDS: ROSUVASTATIN 10 MG TABLET 40 MG PO (20:55)
[2019-09-26] MEDS: MELATONIN 3 MG TABLET 6 MG PO (20:55)
[2019-09-26] MEDS: EZETIMIBE 10 MG TABLET PO (20:55)
[2019-09-27] VITALS (8 sets, daily range): BP systolic 108–127; BP diastolic 46–65; PULSE 77–90; RESP 16–18; TEMP 36.3–37.1; O2SAT 95–100
[2019-09-27] MEDS: TRAMADOL 50 MG TABLET 100 MG PO ×4 (01:27→21:20)
[2019-09-27] MEDS: BACLOFEN 10 MG TABLET PO ×3 (02:59→19:31)
[2019-09-27] MEDS: HEPARIN DRIP 25,000 UNIT/500 ML IV.SOLN 25 UNIT IV (05:50)
[2019-09-27 05:51] LABS: INR 1.7 (0.9-1.3); Prothrombin Time 19.2 SECONDS (10.1-12.7)
[2019-09-27 05:59] LABS: PTT Partial Thromboplastin Tim 72 SECONDS (26.4-36.2)
[2019-09-27] MEDS: LEVOTHYROXINE 125 MCG TABLET PO (06:10)
--- NOTE | 2019-09-27 07:59 | PM.EVENT ---
Event Note Date Patient Seen: 09/13/19 Time Patient Seen: 05:00 Event Note: Pallavi called for consultation on patient whom has developed a rapid atrial fibrillation. She has been in consultation with cardio at [place] and has maximized medical therapy. The patient is largely asymptomatic and shows no signs of ischemia on EKG but in her postoperative and frail condition she will need cardioversion as prolonged rapid AFib put her at risk for life-threatening scenarios. I consulted on-call Cardiology in [place] myself and we agreed that the patient is a good candidate for cardioversion. Given her recent surgery I contacted on-call anesthesia to perform the procedural sedation to allow me to focus on the cardioversion. Please see their note for details of medications and hemodynamic status. I consented the patient and her family and discussed pros and cons of procedure. They had questions answered to their apparent satisfaction and were very much on board with moving forward. Electrical Cardioversion: Indication: [rapid AFib] A time-out was completed verifying correct patient, procedure. Informed consent was obtained. The patient was judged to be a satisfactory for the procedure. An intravenous access was established. Monitoring equipment was set-up. The resuscitative cart was nearby. Anesthesia: The patient was given an intravenous dose of [see anesthesia note] After satisfactory anesthesia was achieved, the procedure was performed. The adhesive pads were placed in the standard position. Synchronized, direct current electrical cardioversion was performed with [150 joules]. The patient tolerated the procedure well. There were no complications. Post Procedure: Successful cardioversion [was achieved.] Post procedure cardiac monitoring demonstrated [NSR].
[2019-09-27] MEDS: DOCUSATE 100 MG CAPSULE PO ×2 (08:37→19:32)
[2019-09-27] MEDS: carvediloL 3.125 MG TABLET PO ×2 (08:38→19:34)
[2019-09-27] MEDS: NYSTATIN CREAM 30 GM 1 APPLIC TOP ×3 (08:38→19:33)
--- NOTE | 2019-09-27 09:01 | PM.PNPO.1 ---
Subjective Subjective Date Patient Seen: 09/27/19 Time Patient Seen: 09:01 Interval history: Patient is POD# 5 s/p incision and drainage, irrigation debridement right hip hematoma and POD#17 s/p right total hip arthroplasty with Dr. Randhawa. Pain has been mild to moderate with activity. Denies any chest pain, shortness of breath, nausea or vomiting. Exam Vital Signs (past 8 hours): - 09/27/19 01:10 09/27/19 04:05 09/27/19 08:38 Temperature 97.4 F L 97.9 F Pulse Rate 90 87 86 Respiratory Rate 16 16 Blood Pressure 114/46 L 116/62 127/51 L Pulse Oximetry 95 98 Oxygen Delivery Method Room Air Oxygen Flow Rate 0 Narrative Exam Narrative: Merlene dressing is on and functioning. Dressing is clean, dry, intact. Sensation grossly intact to light touch right LE. Motor function is intact. Objective Labs Result Diagrams: 09/26/19 05:41 09/25/19 05:17 Labs: Laboratory Results - last 24 hr 09/27/19 09/27/19 05:05 05:05 PT 19.2 H INR 1.7 H APTT 72 H Assessment & Plan Post-op Postoperative Procedures: Procedures Operation Date: 09/10/19 07:45 Actual Procedures Side Surgeon p Total Hip Arthroplasty Right Rod Randhawa MD Operation Date: 09/22/19 16:00 Actual Procedures Side Surgeon p Incision and Drainage S/P Hip Right Rod Randhawa MD Patient progressing slowly with PT, remains 1-2 person assist. Will require discharge to SNF, has been accepted by [facility]. Hemovac drain remains in place, output last shift was 8 ml, if output remains below 10 ml today drain may be removed. She has restarted Coumadin, bridging with Heparin. Appreciate medicine following this complex patient.
--- NOTE | 2019-09-27 09:05 | PT.IPTN ---
Current Diagnoses Cutaneous abscess, unspecified (09/10/19) Unilateral primary osteoarthritis, right hip (09/10/19) Surgery Performed Operation Date: 09/10/19 07:45 Actual Procedures p Total Hip Arthroplasty(Right) - Rod Randhawa MD Operation Date: 09/22/19 16:00 Actual Procedures p Incision and Drainage S/P Hip(Right) - Rod Randhawa MD Physical Therapy Treatment Note M2 PT-IP Current Condition Start: 09/10/19 17:18 Freq: NEEDED Status: Discharge Protocol: Document 09/26/19 16:02 NFW (Rec: 09/26/19 16:46 NFW [id number]) Physical Therapy Current Condition Precautions Posterior Hip Precautions No Hip Flexion > 90 degrees,No Hip Internal Rotation,No Hip Adduction Weight Bearing Status Weight Bearing Status Full Weight Bearing M3 PT-IP Subjective Start: 09/10/19 17:18 Freq: NEEDED Status: Discharge Protocol: Document 09/29/19 14:23 LJ (Rec: 09/29/19 09:47 LJ [email or web address]) Subjective Physical Therapy Visit Type Type Treatment Note Visit Start Time 09:05 Visit Stop Time 09:38 Total Visit Minutes 33 Notes Pt in bed willing to get up with PT M4 PT-IP Mobility and Gait Start: 09/10/19 17:18 Freq: NEEDED Status: Discharge Protocol: Document 09/29/19 14:23 LJ (Rec: 09/29/19 09:47 LJ [email or web address]) PT-Bed Mobility Assessment Supine to Sit Supine to Sit Moderate Assistance,1 Person Assistance,Head of Bed Elevated,Bedrails Scooting Scooting to Edge of Bed Minimal Assistance PT-Transfer Assessment Sit to and From Stand Sit to and from Stand Contact Guard Assistance,1 Person Assistance,Use of Upper Extremities Equipment Transfer Assistive Device Gait Belt,Front Wheeled Walker Transfers Transfer Destination Chair Transfer Technique Pt ambulated w/ FWW Transfer Ability Level of Assist Contact Guard Assistance,1 Person Assistance,Use of Upper Extremities Comments Mobility Comments Pt requires ModA and bed rails for bed mobility and assist with RLE. Pt is Yung-CGA x1 for sit<>stand. Pt transferred to toilet using grab bars and CGA sit<>stand. Ambulated to chair to rest for several minutes then ambulated to sink CGA to wash up. Pt completed hygiene and walked back to chair. Left in chair with in room and all needs in reach. Gait Assessment Gait Distance (Feet) 30 Able to Maintain Weight Bearing Status Yes During Gait Assistive Devices Assistive Device Gait Belt,Front Wheeled Walker Orthotic/Prosthetic Devices or Brace: No Gait Deviations General Gait Pattern Antalgic,Decreased Stride Length,Decreased Feet Clearance,Flexed Trunk,Step-to Gait,Wide Based Gait Factors Limiting Gait Function Factors Limiting Gait Function Decreased Activity Tolerance, Decreased Strength,Limited Range of Motion,Pain,Poor Balance Comments Gait Comments see mobility section M5 PT-IP Objective Assessments Start: 09/10/19 17:18 Freq: NEEDED Status: Discharge Protocol: Document 09/21/19 14:27 AW (Rec: 09/21/19 15:00 AW [id number]) Orientation Orientation/Cognition Level of Alertness Alert Orientation Name,Day of Week,Place, Situation Language Function Ability No Deficits Noted Safety Awareness Decreased Safety Awareness Memory Description Short Term Impaired Gross Range of Motion Upper Extremity ROM Assessment Within Functional Limits Lower Extremity ROM Assessment Bilaterally Impaired Impairments RLE tightness and increase guarding affecting PROM Strength Upper Extremity Strength Assessment Within Functional Limits Lower Extremity Strength Assessment Bilaterally Impaired Hip R: 3+/5 L: 4-/5 Knee R: 3-/5 L: 3+/5 Ankle B: 3+/5 Comments Strength Comments MMT limited secondary to pain Sensation Assessment Sensation Gross Sensation WNL M6 PT-IP Treatment Start: 09/10/19 17:18 Freq: NEEDED Status: Discharge Protocol: Document 09/29/19 14:23 (Rec: 09/29/19 09:47 [email or web address]) Physical Therapy Treatment Exercises Exercises Ankle Pumps,Gluteal Sets,Quad Sets,Heel Slides Education Education Provided Precautions,Safety Other Treatments Other Treatment Performed Pt recalls all hip precautions and exercises good judgement during movement to maintain them. M7 PT-IP Assessment and Plan Start: 09/10/19 17:18 Freq: NEEDED Status: Discharge Protocol: Document 09/29/19 14:23 LJ (Rec: 09/29/19 09:47 LJ [email or web address]) PT Summary Assessment and Plan Summary Impairments Pain,ROM,Strength,Balance, Coordination,Sensation,Tone, Cognition,Bed Mobility, Transfers,Gait,Activity Tolerance Progress Towards Goals Progressing Toward Goals,Slow Progress due to Activity Tolerance Assessment Summary Pt fatigued after activity but willing to keep going. Has progressed activity tolerance with less lightheadedness. Goals Bed Mobility Goal Minimal Assistance Transfer Goal Minimal Assistance,Front Wheeled Walker Gait Goal Contact Guard Assistance,Front Wheel Walker Gait Distance 75 Days to Meet Goals 9 Frequency of Treatment Frequency Of Treatment Twice a Day Treatment Plan Physical Therapy Treatment Plan Bed Mobility Training,Transfer Training,Gait Training, Therapeutic Exercise,Balance Retraining,Post Op Education, Discharge Planning,Hot or Cold Pack,Neuromuscular Re-ed, Coordination Retraining,Manual Therapy Recommendations To Nursing Amount of Assist Needed 1 Person Assist Discharge Recommendations PT Discharge Recommendations SNF Rehab Transportation Needs at Discharge Wheelchair/Cabulance
--- NOTE | 2019-09-27 11:43 | OT.IP.TRT ---
Current Diagnoses Cutaneous abscess, unspecified (09/10/19) Unilateral primary osteoarthritis, right hip (09/10/19) Surgery Performed Operation Date: 09/10/19 07:45 Actual Procedures p Total Hip Arthroplasty(Right) - Rod Randhawa MD Operation Date: 09/22/19 16:00 Actual Procedures p Incision and Drainage S/P Hip(Right) - Rod Randhawa MD Occupational Therapy Treatment Note M2 OT-IP Current Condition Start: 09/16/19 17:37 Freq: Status: Active Protocol: Document 09/23/19 16:15 [facility] (Rec: 09/23/19 16:55 [facility] [email or web address]) Occupational Therapy Current Condition Current Condition Evaluation Date 09/23/19 Treatment Diagnosis s/p I and D of RTHA Diagnosis Onset Date 09/10/19 Post Operative Precautions Posterior Hip Precautions No Hip Flexion > 90 degrees,No Hip Internal Rotation,No Hip Adduction Weight Bearing Status Weight Bearing Status Weight Bear as Tolerated M3 OT- IP Subjective and Pain Start: 09/16/19 17:37 Freq: Status: Active Protocol: Document 09/27/19 12:19 [facility] (Rec: 09/27/19 12:32 [facility] [email or web address]) OT- Subjective Occupational Therapy Visit Type Type Treatment Note Visit Start Time 10:57 Visit Stop Time 11:43 Total Visit Minutes 46 Occupational Therapy Visit Comments Patient Comments Pt wanting to get up and agreeable to try to walk into the bathroom. BAND TUMBLER present due to pt needing extensive assist for bed mobility needs. Patient/Caregiver Goals To get stronger, go to rehab and get stronger and go home eventually. OT Pain Assessment Pain When Pain Assessed During Mobility Pain Present Pain Present Pain Reported M4 OT- IP ADL's Start: 09/16/19 17:37 Freq: Status: Active Protocol: Document 09/27/19 12:19 [facility] (Rec: 09/27/19 12:32 [facility] [id number]) OT [id number] Comments OT Self-Feeding Comments Not at meal time. OT ADL-Grooming General Evaluation Grooming Ability Standby Assistance Comments OT Grooming Comments Today pt able to tolerate standing at the sink with FWW to wash her face and brush her hair before having to sit down. OT ADL-Oral Care Comments Oral Care Comments Pt do not want to perform at this time. OT ADL-Dressing General Eval Lower Body Dressing Ability Total Assistance Areas Needing Assistance Underpants/Brief,Socks OT ADL-Toileting General Evaluation Toileting Ability Total Assistance Areas Needing Assistance Manage Clothing,Perform Perineal Hygiene Comments OT Toileting Comments CGA to stand with FWW , while another to assist to hygiene and brief change. M5 OT- IP IADL's Start: 09/16/19 17:37 Freq: Status: Active Protocol: Document 09/23/19 16:15 [facility] (Rec: 09/23/19 16:55 [facility] [id number]) OT-Instrumental Activities of Daily Living Medication Management Medication Management Comments Prior pt able to do on her own , however pt's daughter that will be able to stay with her and assist. Money Management Money Management Comments Pt's daughter states will be assisting her. Meal Preparation Meal Preparation Caregiver Provides Assist Budget Coordinator Budget Coordinator Caregiver Provides Assist Driving Driving Caregiver Provides Assist M6 OT- IP Functional Cognition Start: 09/16/19 17:37 Freq: Status: Active Protocol: Document 09/27/19 12:19 [facility] (Rec: 09/27/19 12:32 [facility] [email or web address]) Cognitive Factors Limiting Selfcare Function Cognitive Ability Level of Alertness Alert Patient Orientation Name,Place,Situation Attention Span Ability Capable of Focused Attention, Unable to Sustain Attention Ability to Follow Commands Able to Follow One Step Commands Safety Awareness No Deficits Noted Problem Solving Ability Needs Assist to Identify Solutions Cognitive Comments Cognitive Assessment Comments Pt doing well and able to follow directions. Pt very cooperative and motivated today and able to get to the bathroom and also to the sink as well. M7 OT- IP Mobility and Balance Start: 09/16/19 17:37 Freq: Status: Active Protocol: Document 09/27/19 12:19 [facility] (Rec: 09/27/19 12:32 [facility] [email or web address]) OT- Bed Mobility Assessment Supine to Sit Supine to Sit Assist Moderate Assistance,2 Person Assistance,Bedrails OT-Transfer Assessment Sit to and From Stand Sit to and from Stand Minimal Assistance,1 Person Assistance Transfers Transfer Ability Contact Guard Assistance, Minimal Assistance,1 Person Assistance Technique Transfer Destination Bed,Bedside Commode,Chair Devices Transfer Assistive Devices Gait Belt,Front Wheeled Walker Comments Mobility Comments Pt improved to MODA x 2 with bed mobility and just needing CGA when up on her feet and MING to stand from lower surfaces. OT- Balance Assessment Sitting Balance and Reactions Static Sitting Balance Ability Good Dynamic Sitting Balance Ability Fair Standing Balance and Reactions Static Standing Balance Ability Fair M8 OT- IP Objective Assessments Start: 09/16/19 17:37 Freq: Status: Active Protocol: Document 09/23/19 16:15 [facility] (Rec: 09/23/19 16:55 [facility] [email or web address]) OT Gross Range of Motion Upper Extremity Range of Motion Assessment Within Functional Limits OT Strength Comments Strength Comments From proxiaml to distal 4/5 to 4-/5. M9 OT- IP Assessment and Plan Start: 09/16/19 17:37 Freq: Status: Active Protocol: Document 09/27/19 12:19 [facility] (Rec: 09/27/19 12:32 [facility] [email or web address]) OT Summary Assessment and Plan Potential Rehabilitation Potential Good Analytic Complexity at Evaluation Low Summary OT Impairments Pain,Balance,Functional Cognition,Functional Mobility, Grooming,Dressing,Toileting, Bathing,Toilet Transfers, Shower Transfers,Activity Tolerance Progress Towards Goals Progressing Toward Goals Assessment Summary Pt continuing to make progress especially for activity tolerance. Pt now able to walk to the toilet and sink for ADl needs. Goals Grooming Goal Standby Assistance Dressing Goal Minimal Assistance Toileting Goal Moderate Assistance Bathing Goal Moderate Assistance Toilet Transfer Goal Contact Guard Assistance Shower Transfer Goal Minimal Assistance Patient/Caregiver Education Goal Demonstrate Post-Op Precautions,Caregiver Independent Assisting Patient Days to Meet Goals 3 Frequency of Treatment Frequency Of Treatment Once a Day Treatment Plan OT Treatment Plan ADL Training,Functional Cognition Training,Functional Mobility,Patient/Family Education,Discharge Planning Other Treatment Recommendations and Next Stand at sink for all grooming Treatment Focus needs with FWW. Discharge Recommendations OT Discharge Recommendations SNF Rehab Home Equipment Needs BSC Transportation Needs at Discharge Wheelchair/Cabulance
--- NOTE | 2019-09-27 15:01 | PC.NURSE ---
1230: Assisted back to bed from chair. Pt did well, needed assistance to get to standing and then to get legs back in bed. Using appropriate precautions. 1500: Pain 11/06, medicated with tramadol/baclofen as requested and helped reposition for comfort
--- NOTE | 2019-09-27 16:34 | PT.IPTN ---
Current Diagnoses Cutaneous abscess, unspecified (09/10/19) Unilateral primary osteoarthritis, right hip (09/10/19) Surgery Performed Operation Date: 09/10/19 07:45 Actual Procedures p Total Hip Arthroplasty(Right) - Rod Randhawa MD Operation Date: 09/22/19 16:00 Actual Procedures p Incision and Drainage S/P Hip(Right) - Rod Randhawa MD Physical Therapy Treatment Note M2 PT-IP Current Condition Start: 09/10/19 17:18 Freq: NEEDED Status: Active Protocol: Document 09/26/19 16:02 NFW (Rec: 09/26/19 16:46 NFW [id number]) Physical Therapy Current Condition Precautions Posterior Hip Precautions No Hip Flexion > 90 degrees,No Hip Internal Rotation,No Hip Adduction Weight Bearing Status Weight Bearing Status Full Weight Bearing M3 PT-IP Subjective Start: 09/10/19 17:18 Freq: NEEDED Status: Active Protocol: Document 09/27/19 14:11 [place] (Rec: 09/27/19 16:45 KS [id number]) Subjective Physical Therapy Visit Type Type Treatment Note Visit Start Time 16:11 Visit Stop Time 16:34 Total Visit Minutes 23 Number of GAS STATION SERVICE ATTENDANT Visits 1 Physical Therapy Visit Comments Patient Comments Pt in bed and willing to work with PT. Patient Goals Pt anticipates discharge to [facility]. Looking forward to rehab. Therapy Pain Assessment Pain When Pain Assessed During Mobility Pain Present Pain Present Pain Reported Location right hip Scale Used no number given Pain Behaviors Moaning Pain Management Techniques Re-positioning M4 PT-IP Mobility and Gait Start: 09/10/19 17:18 Freq: NEEDED Status: Active Protocol: Document 09/27/19 14:11 [place] (Rec: 09/27/19 16:45 KS [id number]) PT-Bed Mobility Assessment Supine to Sit Supine to Sit Moderate Assistance,Maximum Assistance,1 Person Assistance ,Head of Bed Elevated,Bedrails Scooting Scooting to Edge of Bed Moderate Assistance PT-Transfer Assessment Sit to and From Stand Sit to and from Stand Contact Guard Assistance, Minimal Assistance,1 Person Assistance,Use of Upper Extremities Equipment Transfer Assistive Device Gait Belt,Front Wheeled Walker Transfers Transfer Destination Chair Transfer Technique Pt ambulated w/ FWW. Transfer Ability Level of Assist Minimal Assistance,1 Person Assistance,Use of Upper Extremities Comments Mobility Comments Pt was in bed upon arrival from therapy and agreed to getting out of bed and going to chair. Pt was Max A for sup <>sit w/ HOB elevated and use of UE. Mod A for guidance of LE and use of bed rails for scooting to EOB. Min A for sit <>stand w/ FWW. Pt then ambulated ~25 ft around room w / FWW and CGA to Min A for FWW management. Pt has antalgic gait w/ flexed trunk, decreased stride length and foot clearance and needs cues for upright posture. Pt able to use FWW to out weight through to off load RLE because of pain. Pt then approached chair and stand<> sit CGA w/ good use of UE to slowly lower into chair. Pt was Max A for scooting back in chair. Pt left in chair w/ all needs in reach. Gait Assessment Gait Gait Assistance Required: Contact Guard Assist,Minimum Assistance,1 Person Assist Distance (Feet) 25 Assistive Devices Assistive Device Gait Belt,Front Wheeled Walker Orthotic/Prosthetic Devices or Brace: No Gait Deviations General Gait Pattern Antalgic,Decreased Stride Length,Decreased Feet Clearance,Flexed Trunk,Step-to Gait,Wide Based Gait Factors Limiting Gait Function Factors Limiting Gait Function Decreased Activity Tolerance, Decreased Strength,Limited Range of Motion,Pain,Poor Balance Comments Gait Comments Pt ambulated ~25 ft around room w/ FWW and CGA to Min A for FWW management. Cues for upright posture and turning FWW. M5 PT-IP Objective Assessments Start: 09/10/19 17:18 Freq: NEEDED Status: Active Protocol: Document 09/21/19 14:27 AW (Rec: 09/21/19 15:00 AW [id number]) Orientation Orientation/Cognition Level of Alertness Alert Orientation Name,Day of Week,Place, Situation Language Function Ability No Deficits Noted Safety Awareness Decreased Safety Awareness Memory Description Short Term Impaired Gross Range of Motion Upper Extremity ROM Assessment Within Functional Limits Lower Extremity ROM Assessment Bilaterally Impaired Impairments RLE tightness and increase guarding affecting PROM Strength Upper Extremity Strength Assessment Within Functional Limits Lower Extremity Strength Assessment Bilaterally Impaired Hip R: 3+/5 L: 4-/5 Knee R: 3-/5 L: 3+/5 Ankle B: 3+/5 Comments Strength Comments MMT limited secondary to pain Sensation Assessment Sensation Gross Sensation WNL M6 PT-IP Treatment Start: 09/10/19 17:18 Freq: NEEDED Status: Active Protocol: Document 09/27/19 14:11 KS (Rec: 09/27/19 16:45 KS [id number]) Physical Therapy Treatment Education Education Provided Precautions,Weight Bearing Status,Safety Other Treatments Other Treatment Performed Pt recalled 33 and maintained all hip precautions during mobility. M7 PT-IP Assessment and Plan Start: 09/10/19 17:18 Freq: NEEDED Status: Active Protocol: Document 09/27/19 14:11 KS (Rec: 09/27/19 16:45 KS [id number]) PT Summary Assessment and Plan Potential Rehabilitation Potential Good Status of Condition at Evaluation Evolving Summary Impairments Pain,ROM,Strength,Balance, Coordination,Sensation,Tone, Cognition,Bed Mobility, Transfers,Gait,Activity Tolerance Progress Towards Goals Progressing Toward Goals,Slow Progress due to Activity Tolerance Assessment Summary Pt tolerated slightly further ambulation today. Max A for bed mobility, Mod A for scooting, CGA to Min A for sit <>stand<>sit and ambulation w/ FWW. Will benefit from continued progression of LE strengthening, bed mobility, and further ambulation. Goals Bed Mobility Goal Minimal Assistance Transfer Goal Minimal Assistance,Front Wheeled Walker Gait Goal Contact Guard Assistance,Front Wheel Walker Gait Distance 75 Days to Meet Goals 10 Frequency of Treatment Frequency Of Treatment Twice a Day Treatment Plan Physical Therapy Treatment Plan Bed Mobility Training,Transfer Training,Gait Training, Therapeutic Exercise,Balance Retraining,Post Op Education, Discharge Planning,Hot or Cold Pack,Neuromuscular Re-ed, Coordination Retraining,Manual Therapy Other Recommendations and Next Treatment Gradual increase of activity Focus as possible with each treatment. Recommendations To Nursing Amount of Assist Needed 1 Person Assist,2 Person Assist Discharge Recommendations PT Discharge Recommendations SNF Rehab Transportation Needs at Discharge Wheelchair/Cabulance
[2019-09-27] MEDS: WARFARIN 2.5 MG TABLET PO (17:37)
--- NOTE | 2019-09-27 18:37 | PM.PN.1 ---
Subjective Subjective Date Patient Seen: 09/27/19 Interval history: Glenys Munoz is a 79-year-old female with a past medical history significant for coronary artery disease status post CABG x1 vessel, cardiomyopathy, left bundle branch block, aortic stenosis status post mechanical aortic valve on warfarin, hypertension, hyperlipidemia, hypothyroidism, osteoarthritis, osteoporosis, restless leg syndrome, and morbid obesity who presented for elective right total hip arthroplasty. Medicine team was consulted to manage patient's atrial fibrillation with RVR, but has been involved with multiple medical issues over the course of her stay including acute blood loss secondary to anticoagulation for mechanical aortic valve and postoperative hypotension. Patient is POD# 5 s/p incision and drainage, irrigation debridement right hip hematoma and POD#16 s/p right total hip arthroplasty with Dr. Randhawa. She continues to regain strength and able to do more with PT. She denies dyspnea or chest pain. Exam Vital Signs (past 8 hours): - 09/27/19 12:35 09/27/19 16:05 Temperature 98.7 F 97.7 F Pulse Rate 79 77 Respiratory Rate 16 18 Blood Pressure 122/65 118/53 L Pulse Oximetry 98 98 Oxygen Delivery Method Room Air Oxygen Flow Rate 0 Narrative Exam Narrative: General: Alert and pleasant in no distress lying in bed Lungs: Clear to auscultation Heart: Regular rhythm Extremities: no edema. Right hip with dressing in place C/D/I with surrounding minimal and improved ecchymoses and edema. Two drains in place with minimal sanguinous fluid. Psychiatric: Affect normal, well oriented Objective Labs Result Diagrams: 09/26/19 05:41 09/25/19 05:17 Labs: Laboratory Results - last 24 hr 09/27/19 09/27/19 05:05 05:05 PT 19.2 H INR 1.7 H APTT 72 H Assessment & Plan Assessment & Plan narrative: Glenys Munoz is a 79-year-old female with a past medical history significant for coronary artery disease status post CABG x1 vessel, cardiomyopathy, left bundle branch block, aortic stenosis status post mechanical aortic valve on warfarin, hypertension, hyperlipidemia, hypothyroidism, osteoarthritis, osteoporosis, restless leg syndrome, and morbid obesity who presented for elective right total hip arthroplasty. Medicine team was consulted to manage patient's atrial fibrillation with RVR, but has been involved with multiple medical issues over the course of her stay including acute blood loss secondary to anticoagulation for mechanical aortic valve and postoperative hypotension. 1. Acute blood loss anemia, secondary to anticoagulation for mechanical aortic valve, now status post I&D with washout and evacuation of large hematoma, not present on admission. Resolved. -Patient is status post I&D with washout and evacuation of large hematoma. -Patient has received a total of 5 units PRBC. -Hemoglobin stable. Transfusion goal hemoglobin < 8.0. -Received Venofer 200 mg x 1 on 09/26/2019. Continue ferrous gluconate 324 mg daily. 2. Acute postoperative hypotension in setting of chronic hypertension, not present on admission. Resolved. -Patient was initially hypotensive postoperative due to acute blood loss. Her blood pressure improved with IV fluid and PRBCs administration. -Initially held antihypertensives including carvedilol 25 mg twice daily and lisinopril 5 mg daily at bedtime. -Restarted carvedilol at decreased dose due to labile blood pressure from 25 mg to 3.125 mg twice daily for heart rate control. Continue to hold lisinopril 5 mg daily at bedtime. 3. Paroxysmal atrial fibrillation with RVR, not present on admission. RVR resolved. -Patient had atrial fibrillation following 1st hip surgery with instability requiring cardioversion. Now stable in sinus rhythm. -TSH within normal limits. -Electrolytes within normal limits. -Echocardiogram was technically difficult and demonstrated aortic valve is not well visualized, valve type is not known, transvalvular velocities and mean gradient are similar to the reports from the outside hospital, there is moderate to severe mitral annular calcification, more prominent in the posterior annulus with moderate mitral stenosis. Mean gradient is 6 mmHg at heart rate of 84 bpm, left atrium is severely dilated, right ventricle is at the upper limits of normal in size; RV systolic function is normal, RVSP 43 mmHg based on an estimated right atrial pressure of 3 mm Hg. -Received amiodarone 150 mg bolus and 24 hour gtt per protocol. Amiodarone discontinued due to rising LFTs. -Received digoxin 250 mcg IV every 4 hours x 2 doses then discontinued as patient was cardioverted to sinus rhythm. -Patient had successful cardioversion x 2 to sinus rhythm and has since went into and out of atrial fibrillation. -Restarted carvedilol at decreased dose due to labile blood pressure from 25 mg to 3.125 mg twice daily for heart rate control. Continue to re-evaluate rate control and adjust dose as necessary. 4. History of mechanical aortic valve, chronic, present admission. Stable. -on heparin gtt to bridge until INR therapeutic. Per cardiology at [facility], in future do not bridge patient with lovenox and heparin gtt instead. -receive warfarin 2 mg on 09/24 and 09/25, warfarin increase to 2.5 mg on 09/26. Continue warfarin 2.5 mg daily at 1700 to slowly get to goal INR to 2.0-3.0. -INR 1.7, Continue to monitor INR daily. 5. Likely acute on chronic mild transaminitis, unclear if present on admission. Resolving. -Likely medication induced and related to amiodarone and acetaminophen versus fatty liver disease -discontinued amiodarone but we can restart acetaminophen -Liver ultrasound demonstrated increased hepatic echogenicity most consistent with hepatic steatosis and gallbladder is mildly prominent with gallstones present but no signs of cholecystitis 6. DJD status post right total arthroplasty, acute on chronic, present on admission. Improving. -Status post right total hip arthroplasty on 09/12 and I&D with washout and evacuation of hematoma on 09/22/2019. -Continue postoperative and pain management per Orthopedic surgery. -Implemented and continue bowel regimen. -per Ortho, DC Hemovac when drainage less than 10 cc per shift 7. Type 2 [place], not present on admission. Resolved. -As anticipated patient had troponin leak due to demand ischemia in setting of atrial fibrillation with RVR and later had a cardioversion x2. -Patient denies chest pain or ACS symptoms. 8. CAD, chronic, present on admission. Stable. -Patient has history of CABG x1 vessel. -Patient endorsed lightheadedness and dizziness with diaphoresis due to arrhythmia which has resolved with cardioversion. Denies chest pain or ACS symptoms. -Carvedilol has since been resumed as above. -Continue to hold aspirin and lisinopril. Continue rosuvastatin 40 mg and ezetimibe 10 mg at bedtime. 9. Hypothyroidism, chronic condition, present on admission, stable -TSH normal at 3.93. Continue levothyroxine 125 mcg daily. Code status: Full code. No formal health directive per patient, however patient designates her daughters Sharri and Angela, as surrogate decision makers. VTE prophylaxis: Warfarin and SCDs. Patient with improving course. Can discharge to care home rehab when off of heparin drip, possibly tomorrow Sunday. I think the Hemovac drain can be removed as output has been less than 10 cc per shift.
[2019-09-27] MEDS: ROSUVASTATIN 10 MG TABLET 40 MG PO (19:31)
[2019-09-27] MEDS: EZETIMIBE 10 MG TABLET PO (19:32)
[2019-09-27] MEDS: SODIUM CHLORIDE 0.9% FLUSH 10 ML IV (19:33)
[2019-09-27] MEDS: PANTOPRAZOLE 40 MG TABLET PO (19:33)
[2019-09-27] MEDS: MELATONIN 3 MG TABLET 6 MG PO (21:21)
--- NOTE | 2019-09-27 22:28 | PC.NURSE ---
Evening note: Glenys had a good evening, reports pain 4/10 to right leg, medicated with Tramadol & Baclofen. She states that medication allowed her to finally sleep tonight. 2 TRAVON drsgs and hemovac site are CDI. Hemovac present, active with very little sero-sang drainage in tubing/disc. Patient able to transfer from recliner to bed, taking about a dozen steps total, mostly needing help getting her RLE in & out of the chair/bed. Sat in recliner to eat meal. Pulses are present, SCD's on bilaterally. Gonsalo LE's with puffy edema, less pitting that it was days ago, SCD wraps can now be fastented at all 3 tabs. Heparin drip continues at 25 ml/hour per protocol. PICC line site patent, bruised, no bleeding at site. Drsg changed per protocol, caps changed. The lumen that is not infusing heparin drip is HL'd, although will not draw back blood. Does flush well. Heparin flush added to MAR, per our hospital IV protocol for Power PICC. Patient incontinent often, brief changed, slick-care, barrier creme to 2 small open areas on R buttock. Crack at center is mostly healed. Abdomen folds with red rashy area, nystatin creme applied. She denies other needs/concerns tonight. Encouraged to call staff if she needs help, fall precautions in place & alarm active for safety.
[2019-09-28] VITALS (7 sets, daily range): BP systolic 109–153; BP diastolic 50–77; PULSE 81–91; RESP 16–21; TEMP 36.1–36.8; O2SAT 96–100
[2019-09-28] MEDS: TRAMADOL 50 MG TABLET 100 MG PO ×4 (03:28→20:46)
[2019-09-28] MEDS: HEPARIN DRIP 25,000 UNIT/500 ML IV.SOLN 25 UNIT IV (03:29)
[2019-09-28 05:29] LABS: INR 1.8 (0.9-1.3); Prothrombin Time 20.8 SECONDS (10.1-12.7)
[2019-09-28 05:40] LABS: PTT Partial Thromboplastin Tim 89 SECONDS (26.4-36.2)
[2019-09-28] MEDS: DOCUSATE 100 MG CAPSULE PO ×2 (09:01→20:46)
[2019-09-28] MEDS: carvediloL 3.125 MG TABLET PO ×2 (09:01→20:46)
[2019-09-28] MEDS: NYSTATIN CREAM 30 GM 1 APPLIC TOP ×3 (09:02→20:47)
[2019-09-28] MEDS: SODIUM CHLORIDE 0.9% FLUSH 10 ML IV ×3 (09:02→20:48)
--- NOTE | 2019-09-28 09:30 | PM.PNPO.1 ---
Subjective Subjective Date Patient Seen: 09/28/19 Time Patient Seen: 09:30 Interval history: Postop day 18 right total hip arthroplasty with Dr. Randhawa. Postop day 6 for I and D for hematoma evacuation. Pain controlled. Patient is on heparin drip and has restarted Coumadin. Awaiting to become therapeutic for discharge to snf. Hemovac drains in place. Less than 10 cc per shift over the last 24 hours Exam Vital Signs (past 8 hours): - 09/28/19 03:00 09/28/19 08:00 Temperature 97.0 F L 98.3 F Pulse Rate 83 81 Respiratory Rate 16 16 Blood Pressure 109/53 L 124/58 L Pulse Oximetry 98 98 Oxygen Delivery Method Room Air Oxygen Flow Rate 0 Narrative Exam Narrative: Alert oriented no acute distress sitting up in bed. Respiratory exam unlabored on room air Musculoskeletal exam. Right hip dressing in place with deangelo. Hemovacs x2. Scant drainage in the reservoir. Less than 10 cc per shift last 24 hours. Drains are removed. Demonstrates dorsiflexion plantar flexion bilateral ankles. Calf soft. SCDs in place Objective Labs Result Diagrams: 09/26/19 05:41 09/25/19 05:17 Labs: Laboratory Results - last 24 hr 09/28/19 09/28/19 05:00 05:00 PT 20.8 H INR 1.8 H APTT 89 H* D Assessment & Plan Post-op Postoperative Procedures: Procedures Operation Date: 09/10/19 07:45 Actual Procedures Side Surgeon p Total Hip Arthroplasty Right Rod Randhawa MD Operation Date: 09/22/19 16:00 Actual Procedures Side Surgeon p Incision and Drainage S/P Hip Right Rod Randhawa MD postop day 18 right total hip with Dr. Randhawa. Postop day 6 I and D hematoma evacuation. Deangelo dressing in place. Drains removed today. Discharged to snf when cleared per Medicine--currently awaiting INR to become appropriate and to be off heparin drip Quality VTE Deep Vein Thrombosis/Pulmonary Embolism Present on Admission: No
--- NOTE | 2019-09-28 10:15 | PT.IPTN ---
Current Diagnoses Cutaneous abscess, unspecified (09/10/19) Unilateral primary osteoarthritis, right hip (09/10/19) Surgery Performed Operation Date: 09/10/19 07:45 Actual Procedures p Total Hip Arthroplasty(Right) - Rod Randhawa MD Operation Date: 09/22/19 16:00 Actual Procedures p Incision and Drainage S/P Hip(Right) - Rod Randhawa MD Physical Therapy Treatment Note M2 PT-IP Current Condition Start: 09/10/19 17:18 Freq: NEEDED Status: Active Protocol: Document 09/26/19 16:02 NFW (Rec: 09/26/19 16:46 NFW [id number]) Physical Therapy Current Condition Precautions Posterior Hip Precautions No Hip Flexion > 90 degrees,No Hip Internal Rotation,No Hip Adduction Weight Bearing Status Weight Bearing Status Full Weight Bearing M3 PT-IP Subjective Start: 09/10/19 17:18 Freq: NEEDED Status: Active Protocol: Document 09/28/19 10:00 AW (Rec: 09/28/19 11:51 AW [id number]) Subjective Physical Therapy Visit Type Type Treatment Note Visit Start Time 09:18 Visit Stop Time 09:55 Total Visit Minutes 37 Notes Ortho removing drain upon PT arrival Number of TRAFFIC TECHNICIAN Visits 0 Physical Therapy Visit Comments Patient Comments Pt finished with breakfast and willing to work with PT Therapy Pain Assessment Pain When Pain Assessed During Mobility Pain Present Pain Present Reassessed Location right hip Intensity 2 Scale Used Numeric (1 - 10) Pain Management Techniques Re-positioning,Timing of Activity with Medications M4 PT-IP Mobility and Gait Start: 09/10/19 17:18 Freq: NEEDED Status: Active Protocol: Document 09/28/19 10:00 AW (Rec: 09/28/19 11:51 AW [id number]) PT-Bed Mobility Assessment Supine to Sit Supine to Sit Moderate Assistance,1 Person Assistance,Head of Bed Elevated,Bedrails Scooting Scooting to Edge of Bed Moderate Assistance PT-Transfer Assessment Sit to and From Stand Sit to and from Stand Contact Guard Assistance, Minimal Assistance,1 Person Assistance,Use of Upper Extremities Equipment Transfer Assistive Device Gait Belt,Front Wheeled Walker Transfers Transfer Destination Chair,Toilet Transfer Technique Pt ambulated w/ FWW Transfer Ability Level of Assist Minimal Assistance,1 Person Assistance,Use of Upper Extremities Comments Mobility Comments Pt sitting up in bed upon PT arrival. She completed supine to sit mod A x 1 with assist to move her operative leg and to rotate her hips toward EOB using the draw sheet. She stood from the bed using FWW min A x 1 and ambulated to the toilet, transferring to and from [facility] using raised toilet seat and FWW. She ambulated [facility] FWW to the sink where she stood with UE support on the counter to wash her face and brush her hair. She reported feeling more lightheaded than usual, so requested to sit in the chair. BP prior to activity was 124/58 HR 78. After activity, BP was 153/77 HR 88. Gait Assessment Gait Gait Assistance Required: Contact Guard Assist,Minimum Assistance,1 Person Assist Distance (Feet) 20 Assistive Devices Assistive Device Gait Belt,Front Wheeled Walker Orthotic/Prosthetic Devices or Brace: No Gait Deviations General Gait Pattern Antalgic,Decreased Stride Length,Decreased Feet Clearance,Flexed Trunk,Step-to Gait,Wide Based Gait Factors Limiting Gait Function Factors Limiting Gait Function Decreased Activity Tolerance, Decreased Strength,Limited Range of Motion,Pain,Poor Balance Comments Gait Comments Pt ambulated in room with FWW requiring cues for FWW mangement and posture. M5 PT-IP Objective Assessments Start: 09/10/19 17:18 Freq: NEEDED Status: Active Protocol: Document 09/21/19 14:27 AW (Rec: 09/21/19 15:00 AW [id number]) Orientation Orientation/Cognition Level of Alertness Alert Orientation Name,Day of Week,Place, Situation Language Function Ability No Deficits Noted Safety Awareness Decreased Safety Awareness Memory Description Short Term Impaired Gross Range of Motion Upper Extremity ROM Assessment Within Functional Limits Lower Extremity ROM Assessment Bilaterally Impaired Impairments RLE tightness and increase guarding affecting PROM Strength Upper Extremity Strength Assessment Within Functional Limits Lower Extremity Strength Assessment Bilaterally Impaired Hip R: 3+/5 L: 4-/5 Knee R: 3-/5 L: 3+/5 Ankle B: 3+/5 Comments Strength Comments MMT limited secondary to pain Sensation Assessment Sensation Gross Sensation WNL M6 PT-IP Treatment Start: 09/10/19 17:18 Freq: NEEDED Status: Active Protocol: Document 09/28/19 10:00 AW (Rec: 09/28/19 11:51 AW [id number]) Physical Therapy Treatment Exercises Exercises Ankle Pumps,Gluteal Sets,Quad Sets,Heel Slides Education Education Provided Precautions,Weight Bearing Status,Safety Other Treatments Other Treatment Performed Pt recalls all hip precautions and exercises good judgement during movement to maintain them. M7 PT-IP Assessment and Plan Start: 09/10/19 17:18 Freq: NEEDED Status: Active Protocol: Document 09/28/19 10:00 AW (Rec: 09/28/19 11:51 AW [id number]) PT Summary Assessment and Plan Summary Impairments Pain,ROM,Strength,Balance, Coordination,Sensation,Tone, Cognition,Bed Mobility, Transfers,Gait,Activity Tolerance Progress Towards Goals Progressing Toward Goals,Slow Progress due to Activity Tolerance Assessment Summary Pt limited this session by lightheadedness though her BP remained steady. She verbalized her movement strategies as she moves and is diligent about maintaining her hip precautions. Continue per POC Goals Bed Mobility Goal Minimal Assistance Transfer Goal Minimal Assistance,Front Wheeled Walker Gait Goal Contact Guard Assistance,Front Wheel Walker Gait Distance 75 Days to Meet Goals 9 Frequency of Treatment Frequency Of Treatment Twice a Day Treatment Plan Physical Therapy Treatment Plan Bed Mobility Training,Transfer Training,Gait Training, Therapeutic Exercise,Balance Retraining,Post Op Education, Discharge Planning,Hot or Cold Pack,Neuromuscular Re-ed, Coordination Retraining,Manual Therapy Other Recommendations and Next Treatment Gradual increase of activity Focus as possible with each treatment. Recommendations To Nursing Amount of Assist Needed 1 Person Assist Discharge Recommendations PT Discharge Recommendations SNF Rehab Transportation Needs at Discharge Wheelchair/Cabulance
--- NOTE | 2019-09-28 10:44 | PC.NURSE ---
Addendum entered by Marissa Escamilla R.N. 09/28/19 14:55: PAIN - pt given baclofen for rle spasm, later after changing brief, stated the medication was reducing the spasm, discussed mobilization with phys therapy shortly and given tramadol 100mg for rle discomfort 3 on scale 0/10. Addendum entered by Marissa Escamilla R.N. 09/28/19 11:40: PTT - discussed with Dr. Luna, continue heparin gtt until inr improves and continue with protocol, lab in for draw. Original Note: AM NOTE - pt is alert, states pain 2 on scale 0/10 while in bed, at bedside shift report, reviewed heparin drip settings with night nurse who had decr hep gtt to 23ml/hr per protocol, deangelo dsg x2 both flashing green, intact, hemovac site w/serosang in tubing, later am in and dc'd the hemovac, RN replaced 4x4 at site with op site over, 3+ lela le edema, discussed pain mgt and after breakfast given tramadol and pt able to slowly mobilize with phys therapy up to BR and sink, then to chair, positioned comfortably, ra 98%, hr 88.
--- NOTE | 2019-09-28 11:30 | PM.PN.1 ---
Subjective Subjective Date Patient Seen: 09/28/19 Interval history: Glenys Munoz is a 79-year-old female with a past medical history significant for coronary artery disease status post CABG x1 vessel, cardiomyopathy, left bundle branch block, aortic stenosis status post mechanical aortic valve on warfarin, who presented for elective right total hip arthroplasty. Medicine team was consulted to manage patient's atrial fibrillation with RVR, but has been involved with multiple medical issues over the course of her stay including acute blood loss secondary to anticoagulation for mechanical aortic valve and postoperative hypotension. Patient is POD# 6 s/p incision and drainage, irrigation debridement right hip hematoma and POD#16 s/p right total hip arthroplasty with Dr. Randhawa. She continues to regain strength and able to do more with PT. She denies dyspnea or chest pain. We are awaiting INR to get to therapeutic level 2.0 to stop heparin drip and discharge to SNF. Exam Vital Signs (past 8 hours): - 09/28/19 08:00 Temperature 98.3 F Pulse Rate 81 Respiratory Rate 16 Blood Pressure 124/58 L Pulse Oximetry 98 Oxygen Delivery Method Room Air Oxygen Flow Rate 0 Narrative Exam Narrative: General: Alert and pleasant, looks comfortable sitting in chair Lungs: Clear to auscultation Heart: Regular rhythm Extremities: No distal edema Affect: Normal Neurological: Well oriented, nonfocal Objective Labs Result Diagrams: 09/26/19 05:41 09/25/19 05:17 Labs: Laboratory Results - last 24 hr 09/28/19 09/28/19 05:00 05:00 PT 20.8 H INR 1.8 H APTT 89 H* D Assessment & Plan Assessment & Plan narrative: Glenys Munoz is a 79-year-old female with a past medical history significant for coronary artery disease status post CABG x1 vessel, cardiomyopathy, left bundle branch block, aortic stenosis status post mechanical aortic valve on warfarin, who presented for elective right total hip arthroplasty. Medicine team was consulted to manage patient's atrial fibrillation with RVR, but has been involved with multiple medical issues over the course of her stay including acute blood loss secondary to anticoagulation for mechanical aortic valve and postoperative hypotension. 1. Acute blood loss anemia, secondary to anticoagulation for mechanical aortic valve, now status post I&D with washout and evacuation of large hematoma, not present on admission. Resolved. -Patient is status post I&D with washout and evacuation of large hematoma. -Patient has received a total of 5 units PRBC. -last hemoglobin 9.0, stable. -Received Venofer 200 mg x 1 on 09/26/2019. Continue ferrous gluconate 324 mg daily. 2. Acute postoperative hypotension in setting of chronic hypertension, not present on admission. Resolved. -Patient was initially hypotensive postoperative due to acute blood loss. Her blood pressure improved with IV fluid and PRBCs administration. -Initially held antihypertensives including carvedilol 25 mg twice daily and lisinopril 5 mg daily at bedtime. -Restarted carvedilol at decreased dose 3.125 mg twice daily for heart rate control. Continue to hold lisinopril 5 mg daily at bedtime. 3. Paroxysmal atrial fibrillation with RVR, not present on admission. RVR resolved. -Patient had atrial fibrillation following 1st hip surgery with instability requiring cardioversion. Now stable in sinus rhythm. -TSH and electrolytes within normal limits. -Echocardiogram was technically difficult and demonstrated aortic valve is not well visualized, valve type is not known, transvalvular velocities and mean gradient are similar to the reports from the outside hospital, there is moderate to severe mitral annular calcification, more prominent in the posterior annulus with moderate mitral stenosis. Mean gradient is 6 mmHg at heart rate of 84 bpm, left atrium is severely dilated, right ventricle is at the upper limits of normal in size; RV systolic function is normal, RVSP 43 mmHg based on an estimated right atrial pressure of 3 mm Hg. -Received amiodarone 150 mg bolus and 24 hour gtt per protocol. Amiodarone discontinued due to rising LFTs. -Received digoxin 250 mcg IV every 4 hours x 2 doses then discontinued as patient was cardioverted to sinus rhythm. -Patient had successful cardioversion x 2 to sinus rhythm and has since went into and out of atrial fibrillation. -continue carvedilol 3.125 mg b.i.d. which is much reduced dose from her home regimen. 4. History of mechanical aortic valve, chronic, present admission. Stable. -on heparin gtt to bridge until INR therapeutic. Per cardiology at [facility], in future do not bridge patient with lovenox and heparin gtt instead. -receive warfarin 2 mg on 09/24 and 09/25, warfarin increase to 2.5 mg on 09/26. Continue warfarin 2.5 mg daily at 1700 to slowly get to goal INR to 2.0-3.0. -last INR 1.8, Continue to monitor INR daily. 5. Likely acute on chronic mild transaminitis, unclear if present on admission. Resolving. -Likely medication induced and related to amiodarone (discontinued) vs versus fatty liver disease -Liver ultrasound demonstrated increased hepatic echogenicity most consistent with hepatic steatosis and gallbladder is mildly prominent with gallstones present but no signs of cholecystitis 6. DJD status post right total arthroplasty, acute on chronic, present on admission. Improving. -Status post right total hip arthroplasty on 09/12 and I&D with washout and evacuation of hematoma on 09/22/2019. -Continue postoperative and pain management per Orthopedic surgery. -Implemented and continue bowel regimen. -Hemovac discontinued by ortho 09/28/2019 7. Type 2 NV, not present on admission. Resolved. -As anticipated patient had troponin leak due to demand ischemia in setting of atrial fibrillation with RVR and later had a cardioversion x2. -Patient denies chest pain or ACS symptoms. 8. CAD, chronic, present on admission. Stable. -Patient has history of CABG x1 vessel. -Continue to hold aspirin and lisinopril. -Continue rosuvastatin 40 mg and ezetimibe 10 mg at bedtime. 9. Hypothyroidism, chronic condition, present on admission, stable -TSH normal at 3.93. Continue levothyroxine 125 mcg daily. Code status: Full code. No formal health directive per patient, however patient designates her daughters Sharri and Angela, as surrogate decision makers. VTE prophylaxis: Warfarin and SCDs. Patient with improving course. Can discharge to intermediate rehab when off of heparin drip, hopefully tomorrow Sunday. Quality VTE Deep Vein Thrombosis/Pulmonary Embolism Present on Admission: No
[2019-09-28 12:02] LABS: PTT Partial Thromboplastin Tim 79 SECONDS (26.4-36.2)
--- NOTE | 2019-09-28 12:05 | PT.IPTN ---
Current Diagnoses Cutaneous abscess, unspecified (09/10/19) Unilateral primary osteoarthritis, right hip (09/10/19) Surgery Performed Operation Date: 09/10/19 07:45 Actual Procedures p Total Hip Arthroplasty(Right) - Rod Randhawa MD Operation Date: 09/22/19 16:00 Actual Procedures p Incision and Drainage S/P Hip(Right) - Rod Randhawa MD Physical Therapy Treatment Note M2 PT-IP Current Condition Start: 09/10/19 17:18 Freq: NEEDED Status: Active Protocol: Document 09/26/19 16:02 NFW (Rec: 09/26/19 16:46 NFW [id number]) Physical Therapy Current Condition Precautions Posterior Hip Precautions No Hip Flexion > 90 degrees,No Hip Internal Rotation,No Hip Adduction Weight Bearing Status Weight Bearing Status Full Weight Bearing M3 PT-IP Subjective Start: 09/10/19 17:18 Freq: NEEDED Status: Active Protocol: Document 09/28/19 10:00 AW (Rec: 09/28/19 11:51 AW [id number]) Subjective Physical Therapy Visit Type Type Treatment Note Visit Start Time 09:18 Visit Stop Time 09:55 Total Visit Minutes 37 Notes Ortho removing drain upon PT arrival Number of SILVICULTURE TEACHER Visits 0 Physical Therapy Visit Comments Patient Comments Pt finished with breakfast and willing to work with PT Therapy Pain Assessment Pain When Pain Assessed During Mobility Pain Present Pain Present Reassessed Location right hip Intensity 2 Scale Used Numeric (1 - 10) Pain Management Techniques Re-positioning,Timing of Activity with Medications M4 PT-IP Mobility and Gait Start: 09/10/19 17:18 Freq: NEEDED Status: Active Protocol: Document 09/28/19 10:00 AW (Rec: 09/28/19 11:51 AW [id number]) PT-Bed Mobility Assessment Supine to Sit Supine to Sit Moderate Assistance,1 Person Assistance,Head of Bed Elevated,Bedrails Scooting Scooting to Edge of Bed Moderate Assistance PT-Transfer Assessment Sit to and From Stand Sit to and from Stand Contact Guard Assistance, Minimal Assistance,1 Person Assistance,Use of Upper Extremities Equipment Transfer Assistive Device Gait Belt,Front Wheeled Walker Transfers Transfer Destination Chair,Toilet Transfer Technique Pt ambulated w/ FWW Transfer Ability Level of Assist Minimal Assistance,1 Person Assistance,Use of Upper Extremities Comments Mobility Comments Pt sitting up in bed upon PT arrival. She completed supine to sit mod A x 1 with assist to move her operative leg and to rotate her hips toward EOB using the draw sheet. She stood from the bed using FWW min A x 1 and ambulated to the toilet, transferring to and from [facility] using raised toilet seat and FWW. She ambulated [facility] FWW to the sink where she stood with UE support on the counter to wash her face and brush her hair. She reported feeling more lightheaded than usual, so requested to sit in the chair. BP prior to activity was 124/58 HR 78. After activity, BP was 153/77 HR 88. Gait Assessment Gait Gait Assistance Required: Contact Guard Assist,Minimum Assistance,1 Person Assist Distance (Feet) 20 Assistive Devices Assistive Device Gait Belt,Front Wheeled Walker Orthotic/Prosthetic Devices or Brace: No Gait Deviations General Gait Pattern Antalgic,Decreased Stride Length,Decreased Feet Clearance,Flexed Trunk,Step-to Gait,Wide Based Gait Factors Limiting Gait Function Factors Limiting Gait Function Decreased Activity Tolerance, Decreased Strength,Limited Range of Motion,Pain,Poor Balance Comments Gait Comments Pt ambulated in room with FWW requiring cues for FWW mangement and posture. M5 PT-IP Objective Assessments Start: 09/10/19 17:18 Freq: NEEDED Status: Active Protocol: Document 09/21/19 14:27 AW (Rec: 09/21/19 15:00 AW [id number]) Orientation Orientation/Cognition Level of Alertness Alert Orientation Name,Day of Week,Place, Situation Language Function Ability No Deficits Noted Safety Awareness Decreased Safety Awareness Memory Description Short Term Impaired Gross Range of Motion Upper Extremity ROM Assessment Within Functional Limits Lower Extremity ROM Assessment Bilaterally Impaired Impairments RLE tightness and increase guarding affecting PROM Strength Upper Extremity Strength Assessment Within Functional Limits Lower Extremity Strength Assessment Bilaterally Impaired Hip R: 3+/5 L: 4-/5 Knee R: 3-/5 L: 3+/5 Ankle B: 3+/5 Comments Strength Comments MMT limited secondary to pain Sensation Assessment Sensation Gross Sensation WNL M6 PT-IP Treatment Start: 09/10/19 17:18 Freq: NEEDED Status: Active Protocol: Document 09/28/19 10:00 AW (Rec: 09/28/19 11:51 AW [id number]) Physical Therapy Treatment Exercises Exercises Ankle Pumps,Gluteal Sets,Quad Sets,Heel Slides Education Education Provided Precautions,Weight Bearing Status,Safety Other Treatments Other Treatment Performed Pt recalls all hip precautions and exercises good judgement during movement to maintain them. M7 PT-IP Assessment and Plan Start: 09/10/19 17:18 Freq: NEEDED Status: Active Protocol: Document 09/28/19 10:00 AW (Rec: 09/28/19 11:51 AW [id number]) PT Summary Assessment and Plan Summary Impairments Pain,ROM,Strength,Balance, Coordination,Sensation,Tone, Cognition,Bed Mobility, Transfers,Gait,Activity Tolerance Progress Towards Goals Progressing Toward Goals,Slow Progress due to Activity Tolerance Assessment Summary Pt limited this session by lightheadedness though her BP remained steady. She verbalized her movement strategies as she moves and is diligent about maintaining her hip precautions. Continue per POC Goals Bed Mobility Goal Minimal Assistance Transfer Goal Minimal Assistance,Front Wheeled Walker Gait Goal Contact Guard Assistance,Front Wheel Walker Gait Distance 75 Days to Meet Goals 9 Frequency of Treatment Frequency Of Treatment Twice a Day Treatment Plan Physical Therapy Treatment Plan Bed Mobility Training,Transfer Training,Gait Training, Therapeutic Exercise,Balance Retraining,Post Op Education, Discharge Planning,Hot or Cold Pack,Neuromuscular Re-ed, Coordination Retraining,Manual Therapy Other Recommendations and Next Treatment Gradual increase of activity Focus as possible with each treatment. Recommendations To Nursing Amount of Assist Needed 1 Person Assist Discharge Recommendations PT Discharge Recommendations SNF Rehab Transportation Needs at Discharge Wheelchair/Cabulance
[2019-09-28] MEDS: BACLOFEN 10 MG TABLET PO ×2 (14:05→18:50)
--- NOTE | 2019-09-28 16:37 | PT.IPTN ---
Current Diagnoses Cutaneous abscess, unspecified (09/10/19) Unilateral primary osteoarthritis, right hip (09/10/19) Surgery Performed Operation Date: 09/10/19 07:45 Actual Procedures p Total Hip Arthroplasty(Right) - Rod Randhawa MD Operation Date: 09/22/19 16:00 Actual Procedures p Incision and Drainage S/P Hip(Right) - Rod Randhawa MD Physical Therapy Treatment Note M2 PT-IP Current Condition Start: 09/10/19 17:18 Freq: NEEDED Status: Active Protocol: Document 09/26/19 16:02 NFW (Rec: 09/26/19 16:46 NFW [id number]) Physical Therapy Current Condition Precautions Posterior Hip Precautions No Hip Flexion > 90 degrees,No Hip Internal Rotation,No Hip Adduction Weight Bearing Status Weight Bearing Status Full Weight Bearing M3 PT-IP Subjective Start: 09/10/19 17:18 Freq: NEEDED Status: Active Protocol: Document 09/28/19 16:25 AW (Rec: 09/28/19 16:37 AW [id number]) Subjective Physical Therapy Visit Type Type Treatment Note Visit Start Time 16:02 Visit Stop Time 16:23 Total Visit Minutes 21 Notes Family arriving for visit as PT entered the room Number of COMMUNICATIONS SYSTEMS ENGINEER Visits 0 Physical Therapy Visit Comments Patient Comments Pt is willing to participate with therapy M4 PT-IP Mobility and Gait Start: 09/10/19 17:18 Freq: NEEDED Status: Active Protocol: Document 09/28/19 16:25 AW (Rec: 09/28/19 16:37 AW [id number]) PT-Bed Mobility Assessment Supine to Sit Supine to Sit Moderate Assistance,1 Person Assistance,Head of Bed Elevated,Bedrails Scooting Scooting to Edge of Bed Minimal Assistance PT-Transfer Assessment Sit to and From Stand Sit to and from Stand Contact Guard Assistance,1 Person Assistance,Use of Upper Extremities Transfers Transfer Destination Chair Transfer Technique Pt ambulated w/ FWW Transfer Ability Level of Assist Contact Guard Assistance,1 Person Assistance,Use of Upper Extremities Comments Mobility Comments Pt completed supine to sit mod A x 1 with use of bed features. She required less assist to move her operative leg, but still exhibits profound weakness. Sit to stand was completed CGA from bed in the lowest position. After gait training, pt transferred to the chair where she was positioned with call light and all needs within reach. Her family remained in room providing encouragement. Gait Assessment Gait Gait Assistance Required: Contact Guard Assist,1 Person Assist Distance (Feet) 40 Able to Maintain Weight Bearing Status Yes During Gait Assistive Devices Assistive Device Gait Belt,Front Wheeled Walker Orthotic/Prosthetic Devices or Brace: No Gait Deviations General Gait Pattern Antalgic,Decreased Stride Length,Decreased Feet Clearance,Flexed Trunk,Step-to Gait,Wide Based Gait Factors Limiting Gait Function Factors Limiting Gait Function Decreased Activity Tolerance, Decreased Strength,Limited Range of Motion,Pain,Poor Balance Comments Gait Comments Pt ambulated from the window side of the bed and out into the hallway to the nurses station, turned around and walked back to the chair with family cheering her on. She used the FWW CGA. M5 PT-IP Objective Assessments Start: 09/10/19 17:18 Freq: NEEDED Status: Active Protocol: Document 09/21/19 14:27 AW (Rec: 09/21/19 15:00 AW [id number]) Orientation Orientation/Cognition Level of Alertness Alert Orientation Name,Day of Week,Place, Situation Language Function Ability No Deficits Noted Safety Awareness Decreased Safety Awareness Memory Description Short Term Impaired Gross Range of Motion Upper Extremity ROM Assessment Within Functional Limits Lower Extremity ROM Assessment Bilaterally Impaired Impairments RLE tightness and increase guarding affecting PROM Strength Upper Extremity Strength Assessment Within Functional Limits Lower Extremity Strength Assessment Bilaterally Impaired Hip R: 3+/5 L: 4-/5 Knee R: 3-/5 L: 3+/5 Ankle B: 3+/5 Comments Strength Comments MMT limited secondary to pain Sensation Assessment Sensation Gross Sensation WNL M6 PT-IP Treatment Start: 09/10/19 17:18 Freq: NEEDED Status: Active Protocol: Document 09/28/19 16:25 AW (Rec: 09/28/19 16:37 AW [id number]) Physical Therapy Treatment Education Education Provided Precautions,Weight Bearing Status,Safety M7 PT-IP Assessment and Plan Start: 09/10/19 17:18 Freq: NEEDED Status: Active Protocol: Document 09/28/19 16:25 AW (Rec: 09/28/19 16:37 AW [id number]) PT Summary Assessment and Plan Summary Impairments Pain,ROM,Strength,Balance, Coordination,Sensation,Tone, Cognition,Bed Mobility, Transfers,Gait,Activity Tolerance Progress Towards Goals Progressing Toward Goals,Slow Progress due to Activity Tolerance Assessment Summary Pt reported no lightheadedness this session and was able to progress gait distance with FWW. She continues to verbalize her movement strategies, demonstrating good awareness and attention to posterior hip precautions. Pt anticipates discharge to SNF once INR is appropriate. Goals Bed Mobility Goal Minimal Assistance Transfer Goal Minimal Assistance,Front Wheeled Walker Gait Goal Contact Guard Assistance,Front Wheel Walker Gait Distance 75 Days to Meet Goals 9 Frequency of Treatment Frequency Of Treatment Twice a Day Treatment Plan Physical Therapy Treatment Plan Bed Mobility Training,Transfer Training,Gait Training, Therapeutic Exercise,Balance Retraining,Post Op Education, Discharge Planning,Hot or Cold Pack,Neuromuscular Re-ed, Coordination Retraining,Manual Therapy Recommendations To Nursing Amount of Assist Needed 1 Person Assist Discharge Recommendations PT Discharge Recommendations SNF Rehab Transportation Needs at Discharge Wheelchair/Cabulance
[2019-09-28] MEDS: WARFARIN 2.5 MG TABLET PO (17:13)
[2019-09-28] MEDS: PRAMIPEXOLE 0.25 MG TABLET 0.75 MG PO (20:46)
[2019-09-28] MEDS: ROSUVASTATIN 10 MG TABLET 40 MG PO (20:47)
[2019-09-28] MEDS: PANTOPRAZOLE 40 MG TABLET PO (20:47)
[2019-09-28] MEDS: EZETIMIBE 10 MG TABLET PO (20:47)
[2019-09-28] MEDS: MELATONIN 3 MG TABLET 6 MG PO (20:47)
[2019-09-29 00:10] VITALS: BP 103/55; PULSE 83; RESP 19; TEMP 36.4; O2SAT 98
[2019-09-29] MEDS: TRAMADOL 50 MG TABLET 100 MG PO ×2 (02:24→08:30)
[2019-09-29] MEDS: SIMETHICONE 80 MG TABLET PO ×2 (02:46→10:41)
[2019-09-29] MEDS: HEPARIN DRIP 25,000 UNIT/500 ML IV.SOLN 22 UNIT IV (03:37)
[2019-09-29 04:00] VITALS: BP 145/68; PULSE 79; RESP 20; TEMP 36.4; O2SAT 94
[2019-09-29 05:34] LABS: Add Manual Diff / Slide Review NO; Basophils Absolute Auto 100 /uL (0-100); Eosinophils Absolute Auto 300 /uL (0-450); Eosinophils Percent Auto 5.1 % (2-4); Hemoglobin 9.5 g/dL (12.0-16.0); Lymphocytes Absolute Auto 2000 /uL (1100-4500); Lymphocytes Percent Auto 29.4 % (25-40); Mean Corpuscular HGB Conc 32.7 % (30-36); Mean Corpuscular Volume 97.7 fL (80-100); Monocytes Absolute Auto 800 /uL (0-900); Monocytes Percent Auto 11.4 % (3-14); Neutrophils Absolute Auto 3600 /uL (1500-7000); Neutrophils Percent Auto 53.1 % (50-75); Platelet Count 414 X10^3/uL (150-400); Red Blood Cell Count 2.96 X10^6/uL (4.0-5.2); Red Cell Distribution Width 17.4 % (11.6-14.8); White Blood Cell Count 6.7 X10^3/uL (4.5-11.0)
[2019-09-29 05:36] LABS: INR 1.9 (0.9-1.3); Prothrombin Time 21.8 SECONDS (10.1-12.7)
[2019-09-29 05:57] LABS: PTT Partial Thromboplastin Tim 89 SECONDS (26.4-36.2)
[2019-09-29] MEDS: LEVOTHYROXINE 125 MCG TABLET PO (06:14)
--- NOTE | 2019-09-29 06:20 | PC.NURSE ---
Notified Madi RUSSELL of critical PTT. PATIENT LIAISON aware. Will follow heparin protocol
--- NOTE | 2019-09-29 08:13 | PC.NURSE ---
Day shift: Per Dr Kumar ok to stop heparin drip. IR 1.[address] Kumar also said Pt could d/c as long as cleared by ortho.
[2019-09-29] MEDS: NYSTATIN CREAM 30 GM 1 APPLIC TOP (08:29)
[2019-09-29] MEDS: carvediloL 3.125 MG TABLET PO (08:30)
[2019-09-29] MEDS: SODIUM CHLORIDE 0.9% FLUSH 10 ML IV (08:30)
[2019-09-29] MEDS: DOCUSATE 100 MG CAPSULE PO (08:30)
[2019-09-29 09:00] VITALS: BP 111/60; PULSE 85; RESP 18; TEMP 36.6; O2SAT 99
--- NOTE | 2019-09-29 09:47 | PT.IPTN ---
Current Diagnoses Cutaneous abscess, unspecified (09/10/19) Unilateral primary osteoarthritis, right hip (09/10/19) Surgery Performed Operation Date: 09/10/19 07:45 Actual Procedures p Total Hip Arthroplasty(Right) - Rod Randhawa MD Operation Date: 09/22/19 16:00 Actual Procedures p Incision and Drainage S/P Hip(Right) - Rod Randhawa MD Physical Therapy Treatment Note M2 PT-IP Current Condition Start: 09/10/19 17:18 Freq: NEEDED Status: Active Protocol: Document 09/26/19 16:02 NFW (Rec: 09/26/19 16:46 NFW [id number]) Physical Therapy Current Condition Precautions Posterior Hip Precautions No Hip Flexion > 90 degrees,No Hip Internal Rotation,No Hip Adduction Weight Bearing Status Weight Bearing Status Full Weight Bearing M3 PT-IP Subjective Start: 09/10/19 17:18 Freq: NEEDED Status: Active Protocol: Document 09/28/19 16:25 AW (Rec: 09/28/19 16:37 AW [id number]) Subjective Physical Therapy Visit Type Type Treatment Note Visit Start Time 16:02 Visit Stop Time 16:23 Total Visit Minutes 21 Notes Family arriving for visit as PT entered the room Number of ABRASIVE WHEEL MOLDER Visits 0 Physical Therapy Visit Comments Patient Comments Pt is willing to participate with therapy M4 PT-IP Mobility and Gait Start: 09/10/19 17:18 Freq: NEEDED Status: Active Protocol: Document 09/28/19 16:25 AW (Rec: 09/28/19 16:37 AW [id number]) PT-Bed Mobility Assessment Supine to Sit Supine to Sit Moderate Assistance,1 Person Assistance,Head of Bed Elevated,Bedrails Scooting Scooting to Edge of Bed Minimal Assistance PT-Transfer Assessment Sit to and From Stand Sit to and from Stand Contact Guard Assistance,1 Person Assistance,Use of Upper Extremities Transfers Transfer Destination Chair Transfer Technique Pt ambulated w/ FWW Transfer Ability Level of Assist Contact Guard Assistance,1 Person Assistance,Use of Upper Extremities Comments Mobility Comments Pt completed supine to sit mod A x 1 with use of bed features. She required less assist to move her operative leg, but still exhibits profound weakness. Sit to stand was completed CGA from bed in the lowest position. After gait training, pt transferred to the chair where she was positioned with call light and all needs within reach. Her family remained in room providing encouragement. Gait Assessment Gait Gait Assistance Required: Contact Guard Assist,1 Person Assist Distance (Feet) 40 Able to Maintain Weight Bearing Status Yes During Gait Assistive Devices Assistive Device Gait Belt,Front Wheeled Walker Orthotic/Prosthetic Devices or Brace: No Gait Deviations General Gait Pattern Antalgic,Decreased Stride Length,Decreased Feet Clearance,Flexed Trunk,Step-to Gait,Wide Based Gait Factors Limiting Gait Function Factors Limiting Gait Function Decreased Activity Tolerance, Decreased Strength,Limited Range of Motion,Pain,Poor Balance Comments Gait Comments Pt ambulated from the window side of the bed and out into the hallway to the nurses station, turned around and walked back to the chair with family cheering her on. She used the FWW CGA. M5 PT-IP Objective Assessments Start: 09/10/19 17:18 Freq: NEEDED Status: Active Protocol: Document 09/21/19 14:27 AW (Rec: 09/21/19 15:00 AW [id number]) Orientation Orientation/Cognition Level of Alertness Alert Orientation Name,Day of Week,Place, Situation Language Function Ability No Deficits Noted Safety Awareness Decreased Safety Awareness Memory Description Short Term Impaired Gross Range of Motion Upper Extremity ROM Assessment Within Functional Limits Lower Extremity ROM Assessment Bilaterally Impaired Impairments RLE tightness and increase guarding affecting PROM Strength Upper Extremity Strength Assessment Within Functional Limits Lower Extremity Strength Assessment Bilaterally Impaired Hip R: 3+/5 L: 4-/5 Knee R: 3-/5 L: 3+/5 Ankle B: 3+/5 Comments Strength Comments MMT limited secondary to pain Sensation Assessment Sensation Gross Sensation WNL M6 PT-IP Treatment Start: 09/10/19 17:18 Freq: NEEDED Status: Active Protocol: Document 09/28/19 16:25 AW (Rec: 09/28/19 16:37 AW [id number]) Physical Therapy Treatment Education Education Provided Precautions,Weight Bearing Status,Safety M7 PT-IP Assessment and Plan Start: 09/10/19 17:18 Freq: NEEDED Status: Active Protocol: Document 09/28/19 16:25 AW (Rec: 09/28/19 16:37 AW [id number]) PT Summary Assessment and Plan Summary Impairments Pain,ROM,Strength,Balance, Coordination,Sensation,Tone, Cognition,Bed Mobility, Transfers,Gait,Activity Tolerance Progress Towards Goals Progressing Toward Goals,Slow Progress due to Activity Tolerance Assessment Summary Pt reported no lightheadedness this session and was able to progress gait distance with FWW. She continues to verbalize her movement strategies, demonstrating good awareness and attention to posterior hip precautions. Pt anticipates discharge to SNF once INR is appropriate. Goals Bed Mobility Goal Minimal Assistance Transfer Goal Minimal Assistance,Front Wheeled Walker Gait Goal Contact Guard Assistance,Front Wheel Walker Gait Distance 75 Days to Meet Goals 9 Frequency of Treatment Frequency Of Treatment Twice a Day Treatment Plan Physical Therapy Treatment Plan Bed Mobility Training,Transfer Training,Gait Training, Therapeutic Exercise,Balance Retraining,Post Op Education, Discharge Planning,Hot or Cold Pack,Neuromuscular Re-ed, Coordination Retraining,Manual Therapy Recommendations To Nursing Amount of Assist Needed 1 Person Assist Discharge Recommendations PT Discharge Recommendations SNF Rehab Transportation Needs at Discharge Wheelchair/Cabulance
--- NOTE | 2019-09-29 10:12 | P.DS_ITS ---
History of Present Illness History of Present Illness Date Patient Seen: 09/29/19 Time Patient Seen: 10:12 Chief complaint: [id number] Right Total Hip Arthroplasty Narrative: Please see HPI previously recorded in the chart. Discharge Providers Provider Date of admission: 09/10/19 05:42 Discharge Date: 09/29/19 Primary care physician: Jose Luis Martinez MD Consults: 09/10/19 11:03 Consult to Discharge Planning Routine Comment: Consult to Physical Therapy Evaluate & Treat Comment: Physician Instructions: post op PRIETO protocol Consult to Respiratory Therapy Evaluate & Treat Comment: Physician Instructions: Evaluate and treat 09/16/19 10:04 Consult to Occupational Therapy Evaluate & Treat Comment: Physician Instructions: Evaluate and treat 09/16/19 12:36 Consult to Dietitian, Adult Routine Comment: education re appropriate diet Reason For Exam: at risk for malnutrition 09/21/19 12:13 Consult to Physical Therapy Evaluate & Treat Comment: sit on side of bed, stand w/fww, ambulate if able Physician Instructions: Evaluate and Treat 09/22/19 19:27 Consult to Discharge Planning Routine Comment: Consult to Physical Therapy Evaluate & Treat Comment: Physician Instructions: post op PRIETO protocol Consult to Respiratory Therapy Evaluate & Treat Comment: Physician Instructions: Evaluate and treat 09/23/19 08:33 Consult to Occupational Therapy Evaluate & Treat Comment: Physician Instructions: Evaluate and treat Discharge provider: Jaki Arrieta PA-C Summary Hospital Course Discharge Diagnosis: s/p right total hip arthroplasty Hospital Course: Patient is an 79-year-old female with severe right hip DJD, coronary artery disease status post CABG x1 vessel, cardiomyopathy, left bundle branch block, aortic stenosis status post mechanical aortic valve on warfarin, HLD, hypothyroidism, OA, osteoporosis, RLS, and morbid obesity. She had pain with activities and at rest, limited ambulation and activity tolerance, difficulties with ADLs, and failure of conservative treatment. The nature of her condition, treatment options, risks and benefits, were discussed and she elected to proceed with total hip arthroplasty and gave informed consent. After informed consent was obtained she was taken to the operating room where she underwent a right total hip arthroplasty with Dr. Randhawa. POD# 1 she was restarted on warfarin and Lovenox for DVT prophylaxis. Overnight drainage from the incision increased requiring dressing changes. She was transitioned from a TRAVON to bulky dressing with dressing changes per shift at this point. On POD# 2 medicine team was consulted due to new onset AFIB with RVR. After consulting with her cardiology group at [facility] in [place] patient was cardioverted. It was also noted that she was symptomatically hypotensive with Hgb 10.5 -> 7.9. She was transfused at that time and went on to receive 4 additional units of PRBC over the next week. She continued to drain from her incision requiring multiple dressing changes daily. INR continued to trend up until on POD# 6 this was 3.7 with anticoagulation held. She returned to the OR for I&D and large hematoma was evacuated. She continued to require cardiac management over the next 6 days and remained on heparin drip until INR stabilized. On POD# 6 s/p incision and drainage, irrigation debridement right hip hematoma and POD#16 s/p right total hip arthroplasty she was determined to be medically stable for discharge to SNF. Exam Vital Signs (past 8 hours): - //20 04:00 03// 09:00 Temperature 97.6 F 97.9 F Pulse Rate 79 85 Respiratory Rate 20 18 Blood Pressure 145/68 H 111/60 Pulse Oximetry 94 99 Oxygen Delivery Method Room Air Oxygen Flow Rate 0 Narrative Exam Narrative: Pleasant 79 year old female resting in bed. Alert and oriented. Dressing over hip is CDI. Patient able to flex/extend the ankle. Objective Labs Result Diagrams: 09/29/19 05:05 09/25/19 05:17 Labs: Laboratory Results - last 24 hr 03/09/29/19 09/29/19 11:35 05:05 05:05 WBC 6.7 RBC 2.96 L Hgb 9.5 L Hct 29.0 L MCV 97.7 MCH 32.0 MCHC 32.7 RDW 17.4 H Plt Count 414 H Neut % (Auto) 53.1 Lymph % (Auto) 29.4 Kern % (Auto) 11.4 Eos % (Auto) 5.1 H Baso % (Auto) 1.0 Neut # (Auto) 3600 Lymph # (Auto) 2000 Kern # (Auto) 800 Eos # (Auto) 300 Baso # (Auto) 100 PT 21.8 H INR 1.9 H APTT 79 H* D 09/29/19 05:05 WBC RBC Hgb Hct MCV MCH MCHC RDW Plt Count Neut % (Auto) Lymph % (Auto) Kern % (Auto) Eos % (Auto) Baso % (Auto) Neut # (Auto) Lymph # (Auto) Kern # (Auto) Eos # (Auto) Baso # (Auto) PT INR APTT 89 H* D Discharge Plan Discharge Plan Patient Disposition: SNF Transfer to: [facility] and Healthcare Consult as needed: Dental, Hearing, Mental health, Podiatry and Vision Discharge orders & Medications Prescriptions: New docusate sodium [DOK] 100 mg Capsule 100 mg PO BID Qty: 40 RF: 0 Continued diphenhydramine HCl 25 mg Capsule 25 mg PO BEDTIME PRN (Reason: Seasonal allergies) Qty: 0 RF: 0 acetaminophen [Tylenol Extra Strength] 500 MG tablet 500 mg PO Q8HP PRN (Reason: Pain) Qty: 0 RF: 0 cyclobenzaprine 10 mg Tablet 10 mg PO TID PRN (Reason: Muscle Spasm) RF: 0 carvedilol 25 mg Tablet 25 mg PO BID RF: 0 warfarin 2.5 mg Tablet 5 mg PO SEEINSTR RF: 0 omeprazole 40 mg Capsule,Delayed Release(Dr/Ec) 40 mg PO BEDTIME RF: 0 levothyroxine [Synthroid] 125 mcg Tablet 125 mcg PO SEEINSTR RF: 0 niacin 500 mg Tablet 1,000 mg PO BID RF: 0 pramipexole 0.25 mg Tablet 0.75 mg PO BEDTIME PRN (Reason: RLS) RF: 0 lisinopril 5 mg Tablet 5 mg PO BEDTIME RF: 0 ezetimibe [Zetia] 10 mg Tablet 10 mg PO BEDTIME RF: 0 rosuvastatin [Crestor] 40 mg Tablet 40 mg PO BEDTIME RF: 0 trospium 60 mg Capsule,Extended Release 24hr 60 mg PO BEDTIME RF: 0 Caltrate 600 plus D 600 mg (1,500 mg)-800 unit Tablet,Chewable 1 tab PO BID RF: 0 Discontinued aspirin 81 mg Tablet,Delayed Release (Dr/Ec) 81 mg PO DAILY RF: 0 No Action melatonin 3 mg Tablet 6 mg PO DAILY RF: 0 ascorbic acid (vitamin C) [Vitamin C] 500 mg Tablet 1,000 mg PO DAILY RF: 0 simethicone 80 mg Tablet,Chewable 250 mg PO Q6HR PRN (Reason: Abdominal Discomfort) RF: 0 ceftriaxone in dextrose,iso-os 2 gram/50 mL Piggyback 2 gram IV Q24H Qty: 12 RF: 0 warfarin 5 mg Tablet 4 mg PO SEEINSTR Qty: 0 RF: 0 tramadol 50 MG tablet 100 mg PO Q8HP PRN (Reason: Pain) Qty: 10 RF: 0 Follow up/Referrals: Jose Luis Martinez MD [Primary Care Provider] - Rod Randhawa MD [Physician] - Discharge Health Status Precautions: Rogers Diet/Activity/Treatments Diet: Diet as Tolerated Liquid consistency: Normal/Thin Food texture: Regular Activity: Weight bear as tolerated. Posterior hip precautions. Use a front wheel walker for fall prevention. Other treatments: Continue warfarin 2.5 mg daily at 1700 to slowly get to goal INR of 2.0-3.0. Last INR 09/29/19 was 1.9 Skin/Wound/Dressing Care Report to your healthcare provider any signs of infection, such as:: chills, fever, night sweats, unusual drainage and unusual redness Dressing: TRAVON dressings are to remain in place. Please notify the office if this becomes saturated or soiled. [facility] Reason for rehabilitation: Post-operative therapy Rehab type: Physical therapy and Occupational therapy Visit Report/Discharge Packet Instructions: Polysomnography, DI for Hip Replacement, How to Prevent Falls, Tramadol Discharge Data Primary Care Provider: Jose Luis Martinez Discharges patient from system. Discharge Date/Time: 09/29/19 12:02 Quality VTE Deep Vein Thrombosis/Pulmonary Embolism Present on Admission: No
--- NOTE | 2019-09-29 10:43 | OT.IP.TRT ---
Current Diagnoses Cutaneous abscess, unspecified (09/10/19) Unilateral primary osteoarthritis, right hip (09/10/19) Surgery Performed Operation Date: 09/10/19 07:45 Actual Procedures p Total Hip Arthroplasty(Right) - Rod Randhawa MD Operation Date: 09/22/19 16:00 Actual Procedures p Incision and Drainage S/P Hip(Right) - Rod Randhawa MD Occupational Therapy Treatment Note M2 OT-IP Current Condition Start: 09/16/19 17:37 Freq: Status: Active Protocol: Document 09/23/19 16:15 [facility] (Rec: 09/23/19 16:55 [facility] [id number]) Occupational Therapy Current Condition Current Condition Evaluation Date 09/23/19 Treatment Diagnosis s/p I and D of RTHA Diagnosis Onset Date 09/10/19 Post Operative Precautions Posterior Hip Precautions No Hip Flexion > 90 degrees,No Hip Internal Rotation,No Hip Adduction Weight Bearing Status Weight Bearing Status Weight Bear as Tolerated M3 OT- IP Subjective and Pain Start: 09/16/19 17:37 Freq: Status: Active Protocol: Document 09/29/19 11:39 [facility] (Rec: 09/29/19 11:50 [facility] [id number]) OT- Subjective Occupational Therapy Visit Type Type Treatment Note Visit Start Time 09:47 Visit Stop Time 10:43 Total Visit Minutes 56 Occupational Therapy Visit Comments Patient Comments Pt wanting to get up and try to use the bathroom. Patient/Caregiver Goals To get stronger, go to rehab and get stronger and go home eventually. OT Pain Assessment Pain When Pain Assessed At Rest Pain Present Pain Present Denied Pain M4 OT- IP ADL's Start: 09/16/19 17:37 Freq: Status: Active Protocol: Document 09/29/19 11:39 [facility] (Rec: 09/29/19 11:50 [facility] [id number]) OT [id number] Comments OT Self-Feeding Comments Not at meal time. OT ADL-Dressing General Eval Lower Body Dressing Ability Total Assistance Areas Needing Assistance Underpants/Brief,Socks OT ADL-Toileting General Evaluation Toileting Ability Total Assistance Areas Needing Assistance Manage Clothing,Perform Perineal Hygiene Comments OT Toileting Comments Pt able to stand with SBA with FWW as therapist assisting with brief and hygiene needs. Pt able to assist for sponge bath to be able to wash her face, arms, chest and top of her legs while sitting on the commode. M5 OT- IP IADL's Start: 09/16/19 17:37 Freq: Status: Active Protocol: Document 09/23/19 16:15 [facility] (Rec: 09/23/19 16:55 [facility] [id number]) OT-Instrumental Activities of Daily Living Medication Management Medication Management Comments Prior pt able to do on her own , however pt's daughter that will be able to stay with her and assist. Money Management Money Management Comments Pt's daughter states will be assisting her. Meal Preparation Meal Preparation Caregiver Provides Assist Supplier Manager Supplier Manager Caregiver Provides Assist Driving Driving Caregiver Provides Assist M6 OT- IP Functional Cognition Start: 09/16/19 17:37 Freq: Status: Active Protocol: Document 09/29/19 11:39 [facility] (Rec: 09/29/19 11:50 [facility] [id number]) Cognitive Factors Limiting Selfcare Function Cognitive Ability Level of Alertness Alert Patient Orientation Name,Place,Situation Attention Span Ability Capable of Focused Attention, Unable to Sustain Attention Ability to Follow Commands Able to Follow Multi-Step Commands Safety Awareness No Deficits Noted Problem Solving Ability Needs Assist to Identify Solutions Cognitive Comments Cognitive Assessment Comments Pt still needing occasional vc to keep FWW farther from her as tends to get too close to it and feels that she will fall over. Pt very motivated, cooperative and willing to do therapy. M7 OT- IP Mobility and Balance Start: 09/16/19 17:37 Freq: Status: Active Protocol: Document 09/29/19 11:39 [facility] (Rec: 09/29/19 11:50 [facility] [id number]) OT- Bed Mobility Assessment Supine to Sit Supine to Sit Assist Maximum Assistance,1 Person Assistance Sit to Supine Sit to Supine Assist Maximum Assistance,1 Person Assistance OT-Transfer Assessment Sit to and From Stand Sit to and from Stand Standby Assistance,1 Person Assistance Transfers Transfer Ability Standby Assistance,Contact Guard Assistance,1 Person Assistance Technique Transfer Destination Bed,Bedside Commode Devices Transfer Assistive Devices Gait Belt,Front Wheeled Walker Comments Mobility Comments Today pt able to do bed mobility with MAX A X 1, and coming up to stand from higher surfaces able to stand with SBA to FWW. OT- Balance Assessment Sitting Balance and Reactions Static Sitting Balance Ability Good Dynamic Sitting Balance Ability Fair Standing Balance and Reactions Static Standing Balance Ability Fair M8 OT- IP Objective Assessments Start: 09/16/19 17:37 Freq: Status: Active Protocol: Document 09/23/19 16:15 [facility] (Rec: 09/23/19 16:55 [facility] [id number]) OT Gross Range of Motion Upper Extremity Range of Motion Assessment Within Functional Limits OT Strength Comments Strength Comments From proxiaml to distal 4/5 to 4-/5. M9 OT- IP Assessment and Plan Start: 09/16/19 17:37 Freq: Status: Active Protocol: Document 09/29/19 11:39 [facility] (Rec: 09/29/19 11:50 [facility] [id number]) OT Summary Assessment and Plan Potential Rehabilitation Potential Good Analytic Complexity at Evaluation Low Summary OT Impairments Pain,Balance,Functional Cognition,Functional Mobility, Grooming,Dressing,Toileting, Bathing,Toilet Transfers, Shower Transfers,Activity Tolerance Progress Towards Goals Progressing Toward Goals Assessment Summary Pt continues to make progress and doing more for herself for ADl and functional mobility needs. Pt's main barriers are bed mobility and toileting needs. Pt looking to be discharged to skilled rehab today. Goals Grooming Goal Standby Assistance Dressing Goal Minimal Assistance Toileting Goal Moderate Assistance Bathing Goal Moderate Assistance Toilet Transfer Goal Standby Assistance Shower Transfer Goal Contact Guard Assistance Patient/Caregiver Education Goal Demonstrate Post-Op Precautions,Caregiver Independent Assisting Patient Days to Meet Goals 1 Frequency of Treatment Frequency Of Treatment Once a Day Treatment Plan OT Treatment Plan ADL Training,Functional Cognition Training,Functional Mobility,Patient/Family Education,Discharge Planning Discharge Recommendations OT Discharge Recommendations SNF Rehab Home Equipment Needs BSC Transportation Needs at Discharge Wheelchair/Cabulance
--- NOTE | 2019-09-29 11:14 | CM.DPC ---
DCP Continues: CM/RN contacted [facility] to let jaime know that patient is D/C today and December stated she can accept and they will set up transport for 11:30am today. Patient notified and patients nurse updated. PASRR, MED list, D/C summary and D/C order faxed to [facility] at [phone] . Patients nurse given report number for patient. PASRR copy given to Alejandra LAZCANO to scan into EMR and original put into D/c packet to go with patient to [facility]. Hetal Madrigal RN
--- NOTE | 2019-09-29 11:34 | PC.NURSE ---
Day shift: Report given to Elviar at [facility] at this time. Pt has all personal belongings. PICC line taken out by SKIP George. Pt tolerated well. scrips in SNF packet. Pt taken in WC by [facility] person. Left unit at approx [phone].
--- NOTE | 2019-09-29 12:03 | PT.IPTN ---
Current Diagnoses Cutaneous abscess, unspecified (09/10/19) Unilateral primary osteoarthritis, right hip (09/10/19) Surgery Performed Operation Date: 09/10/19 07:45 Actual Procedures p Total Hip Arthroplasty(Right) - Rod Randhawa MD Operation Date: 09/22/19 16:00 Actual Procedures p Incision and Drainage S/P Hip(Right) - Rod Randhawa MD Physical Therapy Treatment Note M2 PT-IP Current Condition Start: 09/10/19 17:18 Freq: NEEDED Status: Discharge Protocol: Document 09/26/19 16:02 NFW (Rec: 09/26/19 16:46 NFW [id number]) Physical Therapy Current Condition Precautions Posterior Hip Precautions No Hip Flexion > 90 degrees,No Hip Internal Rotation,No Hip Adduction Weight Bearing Status Weight Bearing Status Full Weight Bearing M3 PT-IP Subjective Start: 09/10/19 17:18 Freq: NEEDED Status: Discharge Protocol: Document 09/29/19 11:56 AW (Rec: 09/29/19 12:03 AW [id number]) Subjective Physical Therapy Visit Type Type Treatment Note Visit Start Time 11:25 Visit Stop Time 11:50 Total Visit Minutes 25 Physical Therapy Visit Comments Patient Comments Pt preparing to leave for [facility] M4 PT-IP Mobility and Gait Start: 09/10/19 17:18 Freq: NEEDED Status: Discharge Protocol: Document 09/29/19 11:56 AW (Rec: 09/29/19 12:03 AW [id number]) PT-Bed Mobility Assessment Rolling Type of Rolling Bilateral Level of Assist Minimal Assistance,1 Person Assistance Supine to Sit Supine to Sit Moderate Assistance,1 Person Assistance,Bedrails Scooting Scooting to Edge of Bed Minimal Assistance PT-Transfer Assessment Sit to and From Stand Sit to and from Stand Standby Assistance,1 Person Assistance Equipment Transfer Assistive Device Gait Belt,Front Wheeled Walker Transfers Transfer Destination Wheelchair Transfer Technique Pt ambulated w/ FWW Transfer Ability Level of Assist Standby Assistance,Contact Guard Assistance,1 Person Assistance Comments Mobility Comments Pt rolled side to side for briefs change and pericare min A x 1. She completed supine to sit mod A x 1 and use of bed cane with HOB flat. She performed sit to stand CGA with FWW and transferred to the wheelchair CGA and with good attention to posterior hip precautions Gait Assessment Comments Gait Comments See mobility comments M5 PT-IP Objective Assessments Start: 09/10/19 17:18 Freq: NEEDED Status: Discharge Protocol: Document 09/21/19 14:27 AW (Rec: 09/21/19 15:00 AW [id number]) Orientation Orientation/Cognition Level of Alertness Alert Orientation Name,Day of Week,Place, Situation Language Function Ability No Deficits Noted Safety Awareness Decreased Safety Awareness Memory Description Short Term Impaired Gross Range of Motion Upper Extremity ROM Assessment Within Functional Limits Lower Extremity ROM Assessment Bilaterally Impaired Impairments RLE tightness and increase guarding affecting PROM Strength Upper Extremity Strength Assessment Within Functional Limits Lower Extremity Strength Assessment Bilaterally Impaired Hip R: 3+/5 L: 4-/5 Knee R: 3-/5 L: 3+/5 Ankle B: 3+/5 Comments Strength Comments MMT limited secondary to pain Sensation Assessment Sensation Gross Sensation WNL M6 PT-IP Treatment Start: 09/10/19 17:18 Freq: NEEDED Status: Discharge Protocol: Document 09/29/19 11:56 AW (Rec: 09/29/19 12:03 AW [id number]) Physical Therapy Treatment Education Education Provided Precautions,Weight Bearing Status,Safety M7 PT-IP Assessment and Plan Start: 09/10/19 17:18 Freq: NEEDED Status: Discharge Protocol: Document 09/29/19 11:56 AW (Rec: 09/29/19 12:03 AW [id number]) PT Summary Assessment and Plan Summary Impairments Pain,ROM,Strength,Balance, Coordination,Sensation,Tone, Cognition,Bed Mobility, Transfers,Gait,Activity Tolerance Progress Towards Goals Progressing Toward Goals Assessment Summary Pt required decreased level of assist with bed mobility, this time with HOB flat. Her attitude is very positive and her activity tolerance has improved tremendously. Goals Bed Mobility Goal Minimal Assistance Transfer Goal Minimal Assistance,Front Wheeled Walker Gait Goal Contact Guard Assistance,Front Wheel Walker Gait Distance 75 Days to Meet Goals 9 Frequency of Treatment Frequency Of Treatment Twice a Day Treatment Plan Physical Therapy Treatment Plan Bed Mobility Training,Transfer Training,Gait Training, Therapeutic Exercise,Balance Retraining,Post Op Education, Discharge Planning,Hot or Cold Pack,Neuromuscular Re-ed, Coordination Retraining,Manual Therapy Recommendations To Nursing Amount of Assist Needed 1 Person Assist Discharge Recommendations PT Discharge Recommendations SNF Rehab
--- NOTE | 2019-09-29 15:53 | PM.PN.1 ---
Subjective Subjective Date Patient Seen: 09/29/19 Time Patient Seen: 09:20 Interval history: Glenys Munoz is a 79-year-old female with a past medical history significant for coronary artery disease status post CABG x1 vessel, cardiomyopathy, left bundle branch block, aortic stenosis status post mechanical aortic valve on warfarin, who presented for elective right total hip arthroplasty. Medicine team was consulted to manage patient's atrial fibrillation with RVR, but has been involved with multiple medical issues over the course of her stay including acute blood loss secondary to anticoagulation for mechanical aortic valve and postoperative hypotension. Patient is POD# 7 s/p incision and drainage, irrigation debridement right hip hematoma and POD#17 s/p right total hip arthroplasty with Dr. Randhawa. She continues to regain strength and able to do more with PT. She denies dyspnea or chest pain. Her INR improved to 1.9 today, and her heparin drip was stopped. She was stable for discharge to rehab for further titration of her Coumadin. Exam Vital Signs (past 8 hours): - 09/29/19 09:00 Temperature 97.9 F Pulse Rate 85 Respiratory Rate 18 Blood Pressure 111/60 Pulse Oximetry 99 Oxygen Delivery Method Room Air Oxygen Flow Rate 0 Narrative Exam Narrative: General: Elderly morbidly obese female sitting in bedside chair and in no acute distress, well-developed, awake and alert, in no acute distress HEENT: Normocephalic, atraumatic. External ears without defect. Pupils equal, round, and reactive to light. Anicteric sclera, moist conjunctivae and no lid lag. Neck: Supple with full range of motion. No lymphadenopathy or thyromegaly. Cardiovascular: Regular rate and rhythm with ejection murmur. No rubs or gallops appreciated. Pulmonary: Clear to auscultation bilaterally without crackles, wheezes, or rhonchi. Normal respiratory effort with no use of accessory muscles. Abdomen: Soft, obese, bowel sounds present, nontender, nondistended. No hepatosplenomegaly or masses appreciated. Extremities: No clubbing or cyanosis. Bilateral lower extremity lipedema. Bipedal edema resolved. Right hip with well-healed surgical incision, no active draining. Skin: Normal temperature, turgor, and texture; no rash, ulcers, or subcutaneous nodules appreciated. Neurological: Cranial nerves grossly intact. Moves all extremities equally. Psychiatric: Anxious mood and normal affect. Alert and oriented to person, place, and time. Objective Labs Result Diagrams: 09/29/19 05:05 09/25/19 05:17 Labs: Laboratory Results - last 24 hr 09/29/19 09/29/19 09/29/19 05:05 05:05 05:05 WBC 6.7 RBC 2.96 L Hgb 9.5 L Hct 29.0 L MCV 97.7 MCH 32.0 MCHC 32.7 RDW 17.4 H Plt Count 414 H Neut % (Auto) 53.1 Lymph % (Auto) 29.4 [place] % (Auto) 11.4 Eos % (Auto) 5.1 H Baso % (Auto) 1.0 Neut # (Auto) 3600 Lymph # (Auto) 2000 [place] # (Auto) 800 Eos # (Auto) 300 Baso # (Auto) 100 PT 21.8 H INR 1.9 H APTT 89 H* D Assessment & Plan Assessment & Plan narrative: Glenys Munoz is a 79-year-old female with a past medical history significant for coronary artery disease status post CABG x1 vessel, cardiomyopathy, left bundle branch block, aortic stenosis status post mechanical aortic valve on warfarin, who presented for elective right total hip arthroplasty. Medicine team was consulted to manage patient's atrial fibrillation with RVR, but has been involved with multiple medical issues over the course of her stay including acute blood loss secondary to anticoagulation for mechanical aortic valve and postoperative hypotension. 1. Acute blood loss anemia, secondary to anticoagulation for mechanical aortic valve, now status post I&D with washout and evacuation of large hematoma, not present on admission. Resolved. -Patient is status post I&D with washout and evacuation of large hematoma. -Patient has received a total of 5 units PRBC. -last hemoglobin 9.5, stable. -Received Venofer 200 mg x 1 on 09/26/2019. Continue ferrous gluconate 324 mg daily as an outpatient. 2. Acute postoperative hypotension in setting of chronic hypertension, not present on admission. Resolved. -Patient was initially hypotensive postoperative due to acute blood loss. Her blood pressure improved with IV fluid and PRBCs administration. -Initially held antihypertensives including carvedilol 25 mg twice daily and lisinopril 5 mg daily at bedtime. -Restarted carvedilol at decreased dose 3.125 mg twice daily for heart rate control. Continue to hold lisinopril 5 mg daily at bedtime. 3. Paroxysmal atrial fibrillation with RVR, not present on admission. RVR resolved. -Patient had atrial fibrillation following 1st hip surgery with instability requiring cardioversion. -TSH and electrolytes within normal limits. -Echocardiogram was technically difficult and demonstrated aortic valve is not well visualized, valve type is not known, transvalvular velocities and mean gradient are similar to the reports from the outside hospital, there is moderate to severe mitral annular calcification, more prominent in the posterior annulus with moderate mitral stenosis. Mean gradient is 6 mmHg at heart rate of 84 bpm, left atrium is severely dilated, right ventricle is at the upper limits of normal in size; RV systolic function is normal, RVSP 43 mmHg based on an estimated right atrial pressure of 3 mm Hg. -Received amiodarone 150 mg bolus and 24 hour gtt per protocol. Amiodarone discontinued due to rising LFTs. -Received digoxin 250 mcg IV every 4 hours x 2 doses then discontinued as patient was cardioverted to sinus rhythm. -Patient had successful cardioversion x 2 to sinus rhythm and has since went into and out of atrial fibrillation. -continue carvedilol 3.125 mg b.i.d. which is much reduced dose from her home regimen. 4. History of mechanical aortic valve, chronic, present admission. Stable. -was on heparin gtt to bridge until INR therapeutic. Per cardiology at [facility], in future do not bridge patient with lovenox and heparin gtt instead. -receive warfarin 2 mg on 09/24 and 09/25, warfarin increase to 2.5 mg on 09/26. Continue warfarin 2.5 mg daily at 1700 to slowly get to goal INR to 2.0-3.0. -last INR slowly increased to 1.9, patient deemed adequate for discharge. She should continue 2.5 mg daily. She will need continued follow-up as an outpatient for Coumadin management. 5. Likely acute on chronic mild transaminitis, unclear if present on admission. Resolving. -Likely medication induced and related to amiodarone (discontinued) vs versus fatty liver disease -Liver ultrasound demonstrated increased hepatic echogenicity most consistent with hepatic steatosis and gallbladder is mildly prominent with gallstones present but no signs of cholecystitis 6. DJD status post right total arthroplasty, acute on chronic, present on admission. Improving. -Status post right total hip arthroplasty on 09/12 and I&D with washout and evacuation of hematoma on 09/22/2019. -Continue postoperative and pain management per Orthopedic surgery. -Implemented and continue bowel regimen. -Hemovac discontinued by ortho 09/28/2019 7. Type 2 ID, not present on admission. Resolved. -As anticipated patient had troponin leak due to demand ischemia in setting of atrial fibrillation with RVR and later had a cardioversion x2. -Patient denied chest pain or ACS symptoms. 8. CAD, chronic, present on admission. Stable. -Patient has history of CABG x1 vessel. -Continue to hold aspirin and lisinopril as noted above. -Continue rosuvastatin 40 mg and ezetimibe 10 mg at bedtime. 9. Hypothyroidism, chronic condition, present on admission, stable -TSH normal at 3.93. Continue levothyroxine 125 mcg daily. Code status: Full code. No formal health directive per patient, however patient designates her daughters Sharri and Angela, as surrogate decision makers. VTE prophylaxis: Warfarin and SCDs. Patient with improving course. Stable for discharge as INR has improved to 1.9. Quality VTE Deep Vein Thrombosis/Pulmonary Embolism Present on Admission: No
== END 2019-09-29 12:02 | DRG 469 ==
LOC: AC 13:34 → ICU 09-13 15:06 → AC 09-19 14:35
PROVIDERS: Internal Medicine; Nurse Practitioner Adult Health; Nurse Practitioner Gerontology; Orthopaedic Surgery; Physician Assistant; Admitting Provider Orthopaedic Surgery; Family Provider Family Medicine; PCP Family Medicine; Referring Provider Family Medicine; Visit Provider Orthopaedic Surgery
PROC: 0SR90JZ Replacement of Right Hip Joint with Synthetic Substitute, Open Approach (ICD-10-PCS; CPT 27130; principal; 2019-09-10 07:45)
DX: M16.11 Unilateral primary osteoarthritis, right hip (principal); I21.A1 Myocardial infarction type 2; Z68.41 Body mass index [BMI] 40.0-44.9, adult; D62 Acute posthemorrhagic anemia; I97.191 Other postprocedural cardiac functional disturbances following other surgery; I42.9 Cardiomyopathy, unspecified; D68.318 Other hemorrhagic disorder due to intrinsic circulating anticoagulants, antibodies, or inhibitors; L76.32 Postprocedural hematoma of skin and subcutaneous tissue following other procedure; E66.01 Morbid (severe) obesity due to excess calories; G47.33 Obstructive sleep apnea (adult) (pediatric); I10 Essential (primary) hypertension; I44.7 Left bundle-branch block, unspecified; I25.10 Atherosclerotic heart disease of native coronary artery without angina pectoris; Z95.2 Presence of prosthetic heart valve; I48.0 Paroxysmal atrial fibrillation; Y83.8 Other surgical procedures as the cause of abnormal reaction of the patient, or of later complication, without mention of misadventure at the time of the procedure; Y92.230 Patient room in hospital as the place of occurrence of the external cause; R74.0 Nonspecific elevation of levels of transaminase and lactic acid dehydrogenase [LDH]; K21.9 Gastro-esophageal reflux disease without esophagitis; E78.5 Hyperlipidemia, unspecified; Z95.1 Presence of aortocoronary bypass graft; M81.0 Age-related osteoporosis without current pathological fracture; G25.81 Restless legs syndrome; I95.81 Postprocedural hypotension; E03.9 Hypothyroidism, unspecified
CPT/HCPCS: 36415; 36430; 36573; 71045; 72170; 76705; 80048; 80053; 80076; 83540; 83550; 83735; 83935; 84145; 84443; 84484; 85014; 85018; 85025; 85027; 85610; 85651; 85730; 86140; 86850; 86900; 86901; 87070; 87075; 87077; 87147; 87186; 87205; 93005; 93306; 94660; 94760; 97110; 97116; 97140; 97162; 97165; 97530; 97535; C1776; P9016; J0282; J0690; J1100; J1160; J1642; J1644; J1650; J1756; J1885; J2250; J2270; J2405; J2704; J3010

== ENCOUNTER 2019-10-17 12:34 | Inpatient (IN) | payer MEDICARE, OTHER, SELFPAY ==
[2019-09-10 11:51] VITALS: BMI 40.3
[2019-10-17] VITALS (7 sets, daily range): BP systolic 101–143; BP diastolic 57–74; PULSE 84–93; RESP 17–18; TEMP 36.3–37.2; O2SAT 93–99; BMI 41.4
--- NOTE | 2019-10-17 12:46 | ED_ITS ---
HPI - Wound/Laceration <Prakash Barclay, - Last Filed: 10/17/19 17:20> General Chief Complaint: Extremity Problem,Nontraumatic Stated Complaint: hip surgery cite infected Time Seen by Provider: 10/17/19 12:35 Source: patient Mode of arrival: Wheelchair Limitations: no limitations History of Present Illness HPI narrative: 79-year-old female nonsmoker with history of AFib on Coumadin, hyperlipidemia, coronary artery disease and aortic stenosis with a recent right total hip arthroplasty presents with a chief complaint of persistent drainage from the incision site. Patient had original surgery on September [address] Randhawa and return to the OR for removal of hematoma on the . She has been living at a local long term facility for rehab and his had a small area of dehiscence and some drainage for least the past few days. She denies any systemic findings such as fever, chills nor nausea or vomiting. She has no chest pain and is not dizzy nor weak or lightheaded. She had labs drawn, including wound culture (coag neg staph) on 10/13. Onset (ago): day(s) Extremity Location: Right: hip Patient tetanus UTD: Yes Related Data Home Medications Medication Instructions Recorded Confirmed diphenhydramine HCl 25 mg PO BEDTIME PRN #0 06/17/12 10/17/19 acetaminophen [Tylenol Extra 500 mg PO Q8HP PRN #0 06/18/12 10/17/19 Strength] tramadol 100 mg PO Q8HP PRN #0 06/18/12 10/17/19 Caltrate 600 plus D 1 tab PO BID 09/03/19 10/17/19 carvedilol 25 mg PO BID 09/03/19 10/17/19 cyclobenzaprine 10 mg PO TID PRN 09/03/19 10/17/19 ezetimibe [Zetia] 10 mg PO BEDTIME 09/03/19 10/17/19 levothyroxine [Synthroid] 125 mcg PO SEEINSTR 09/03/19 10/17/19 lisinopril 5 mg PO BEDTIME 09/03/19 10/17/19 niacin 1,000 mg PO BID 09/03/19 10/17/19 omeprazole 40 mg PO BEDTIME 09/03/19 10/17/19 pramipexole 0.75 mg PO BEDTIME PRN 09/03/19 10/17/19 rosuvastatin [Crestor] 40 mg PO BEDTIME 09/03/19 10/17/19 trospium 60 mg PO BEDTIME 09/03/19 10/17/19 warfarin 4 mg PO SEEINSTR 09/03/19 10/17/19 warfarin 5 mg PO SEEINSTR 09/03/19 10/17/19 ascorbic acid (vitamin C) [Vitamin 1,000 mg PO DAILY 10/17/19 10/17/19 C] melatonin 6 mg PO DAILY 10/17/19 10/17/19 simethicone 250 mg PO Q6HR PRN 10/17/19 10/17/19 Previous Rx's Medication Instructions Recorded docusate sodium [DOK] 100 mg PO BID #40 cap 09/29/19 Allergies Allergy/AdvReac Type Severity Reaction Status Date / Time latex Allergy Intermediate ITCHING Verified 10/17/19 13:47 Review of Systems <Prakash Barclay DO - Last Filed: 10/17/19 17:20> Constitutional Constitutional: Denies chills, Denies fatigue, Denies fever(s), Denies frequent falls, Denies lethargy and Denies weakness Eyes Eyes: Denies change in vision, Denies eye discharge, Denies irritation and Denies loss of vision ENT Ears, Nose, Mouth, and Throat: Denies change in voice, Denies dizziness, Denies neck pain, Denies sore throat and Denies throat swelling Cardiovascular Cardiovascular: Denies chest pain, Denies irregular heart rhythm, Denies lightheadedness, Denies palpitations, Denies dyspnea, Denies dyspnea on exertion and Denies orthopnea Respiratory Respiratory: Denies cough, Denies dyspnea, Denies dyspnea on exertion and Denies wheezing Gastrointestinal Gastrointestinal: Denies abdominal pain, Denies change in bowel habits, Denies diarrhea, Denies nausea and Denies vomiting Genitourinary Genitourinary: Denies hematuria, Denies flank pain, Denies urinary incontinence and Denies urinary urgency Musculoskeletal Musculoskeletal: Denies back pain, Denies muscle weakness, Denies neck pain, Denies numbness and Denies tingling Integumentary/Breasts Skin/Breast: Denies pruritus, Denies erythema, Denies rash and Reports wounds Neurologic Neurologic: Denies behavioral changes, Denies confusion, Denies dizziness, Denies frequent falls, Denies loss of vision, Denies numbness, Denies tingling and Denies weakness Psychiatric Psychiatric: Denies anxiety, Denies behavioral changes, Denies confusion, Denies depression, Denies homicidal ideation and Denies suicidal ideation Endocrine Endocrine: Denies fatigue, Denies flushing and Denies palpitations Hematologic/Lymphatic Hematologic/Lymphatic: Denies easy bruising Allergic/Immunologic Allergic/Immunologic: Denies urticaria, Denies throat swelling and Denies wheezing Patient History <Prakash Barclay DO - Last Filed: 10/17/19 17:20> Medical History Atrial fibrillation (Acute) CAD (coronary artery disease) (Acute) Cardiomyopathy (Acute) GERD (gastroesophageal reflux disease) (Acute) Glucose intolerance (Acute) Hearing impaired (Acute) HLD (hyperlipidemia) (Acute) HTN (hypertension) (Acute) Hypothyroidism (Acute) LBBB (left bundle branch block) (Acute) Nonrheumatic aortic (valve) stenosis (Acute) Osteoarthritis (Acute) Osteoporosis (Acute) Panic disorder (Acute) RLS (restless legs syndrome) (Acute) Systolic heart failure (Acute) T12 compression fracture (Acute 06/04/12) Urinary incontinence (Acute) Vertigo (Acute) Surgical History (Updated 10/17/19 @ 14:01 by Katherin Regalado MD) H/O: hysterectomy (Acute) Hip joint replacement status (Acute) History of aortic valve replacement (Acute ~2001) History of lumpectomy of right breast (Acute) Hx of bilateral cataract extraction (Acute) Hx of removal of cyst (Acute) Hx of tonsillectomy (Acute) S/P CABG x 1 (Acute ~2001) Social History household members: spouse and family Smoking Status: Never smoker alcohol intake: never Smoking Status: Never smoker Substance Use Type: does not use Exam <Prakash Barclay DO - Last Filed: 10/17/19 17:20> Narrative Exam Narrative: GENERAL: [79] year old patient appears stated age. Well- nourished, well-developed patient, in mild distress. HEAD: Atraumatic. Normocephalic. EYES: Pupils equal round and reactive. Extraocular motions intact. No scleral icterus. No injection or drainage. ENT: Nose without bleeding, purulent drainage. Throat without erythema, tonsil lar hypertrophy or exudate. Airway patent. NECK: Trachea midline. Non tender CARDIOVASCULAR: Regular rate and rhythm without murmurs, gallops, or rubs. RESPIRATORY: Clear to auscultation. Breath sounds equal bilaterally. No wheezes, rales, or rhonchi. GASTROINTESTINAL: Abdomen soft, non-tender, nondistended. EXTREMITIES: No edema or joint tenderness. BACK: Nontender without deformity or crepitance. No flank tenderness. NEURO: AOx3. SKIN: Incision of right hip PRIETO exposed, 0.5 cm area of dehiscence at the superior aspect of the wound which is draining purulence material, a repeat culture obtained and sent to lab Initial Vital Signs Initial Vital Signs: Vital Signs Temperature 97.5 F L 10/17/19 13:00 Pulse Rate 93 H 10/17/19 13:00 Respiratory Rate 18 10/17/19 13:00 Blood Pressure 143/74 H 10/17/19 13:00 Pulse Oximetry 98 10/17/19 13:00 <H Bijan Regalado MD - Last Filed: 10/17/19 14:22> Initial Vital Signs Initial Vital Signs: Vital Signs Temperature 97.5 F L 10/17/19 13:00 Pulse Rate 93 H 10/17/19 13:00 Respiratory Rate 18 10/17/19 13:00 Blood Pressure 143/74 H 10/17/19 13:00 Pulse Oximetry 98 10/17/19 13:00 Course <Prakash Barclay DO - Last Filed: 10/17/19 17:20> Orders Ordered: ED Orders 10/17/19 12:40 Wound Culture and Gram Stain Stat 10/17/19 13:10 Basic Metabolic Panel Stat Complete Blood Count AUTO DIFF Stat Lactate (Lactic Acid) Stat Prothrombin Time INR Stat 10/17/19 13:29 Blood Culture Stat Hydrocodone Bitart/Acetaminophen (Baxter 5/325) 1 tab PO Q4HR PRN PRN Reason: Pain, Moderate (4-6) Carvedilol (Coreg) 25 mg PO BID MARCELLUS Cyclobenzaprine HCl (Flexeril) 10 mg PO TID PRN PRN Reason: Muscle Spasm Diphenhydramine HCl (Benadryl) 25 mg PO BEDTIME PRN PRN Reason: Seasonal allergies Docusate Sodium (Colace) 100 mg PO BID [facility]CE[facility] Ezetimibe (Zetia) 10 mg PO BEDTIME [facility] Sodium Chloride (Normal Saline 0.9%) 1,000 mls @ 60 mls/hr IV CONT MARCELLUS Last Admin: 10/17/19 15:02 Dose: 60 mls/hr Documented by: NCBETOIF Levothyroxine Sodium (Synthroid) 125 mcg PO MoTuWeThFrSa@0600 MARCE[facility] Levothyroxine Sodium (Synthroid) 250 mcg PO Avery@0600 [facility] Lisinopril (Zestril) 5 mg PO BEDTIME [facility] Naloxone HCl (Narcan) 0.2 mg IV Q2MIN PRN PRN Reason: Opiate Reversal Ondansetron HCl (Zofran Odt) 4 mg PO Q8HR PRN PRN Reason: Nausea And Vomiting Ondansetron HCl (Zofran) 4 mg IV Q8HR PRN PRN Reason: Nausea And Vomiting Pantoprazole Sodium (Protonix) 40 mg PO BEDTIME [facility] Pramipexole Dihydrochloride (Mirapex) 0.75 mg PO BEDTIME [facility] Pramipexole Dihydrochloride (Mirapex) 0.75 mg PO PRN PRN PRN Reason: RLS Last Admin: 10/17/19 16:59 Dose: 0.75 mg Documented by: LURDES Rosuvastatin Calcium (Crestor) 40 mg PO BEDTIME [facility] Tramadol HCl (Ultram) 50 mg PO Q8H PRN PRN Reason: Pain Discontinued Medications Pramipexole Dihydrochloride (Mirapex) 0.75 mg PO BEDTIME PRN PRN Reason: RLS Consultations Consultation #1: Dr. Maldonado consulted, whom recommends patient be admitted to medicine. Will talk with his partners, hold on ABX for now. Consultation #2: hospitalist happy to accept. Vital Signs Vital signs: Vital Signs - 8 hr 10/17/19 13:00 Temperature 97.5 F L Pulse Rate 93 H Respiratory Rate 18 Blood Pressure 143/74 H Pulse Oximetry 98 <H Bijan Regalado MD - Last Filed: 10/17/19 14:22> Orders Ordered: ED Orders 10/17/19 12:40 Wound Culture and Gram Stain Stat 10/17/19 13:10 Basic Metabolic Panel Stat Complete Blood Count AUTO DIFF Stat Lactate (Lactic Acid) Stat Prothrombin Time INR Stat 10/17/19 13:29 Blood Culture Stat Hydrocodone Bitart/Acetaminophen (Baxter 5/325) 1 tab PO Q4HR PRN PRN Reason: Pain, Moderate (4-6) Carvedilol (Coreg) 25 mg PO BID MARCE[facility]US Cyclobenzaprine HCl (Flexeril) 10 mg PO TID PRN PRN Reason: Muscle Spasm Diphenhydramine HCl (Benadryl) 25 mg PO BEDTIME PRN PRN Reason: Seasonal allergies Docusate Sodium (Colace) 100 mg PO BID [facility]CE[facility]US Ezetimibe (Zetia) 10 mg PO BEDTIME [facility] Sodium Chloride (Normal Saline 0.9%) 1,000 mls @ 60 mls/hr IV CONT MARCELLUS Last Admin: 10/17/19 15:02 Dose: 60 mls/hr Documented by: HIRAM Levothyroxine Sodium (Synthroid) 125 mcg PO MoTuWeThFrSa@0600 MARCE[facility]US Levothyroxine Sodium (Synthroid) 250 mcg PO Avery@0600 MARCE[facility]US Lisinopril (Zestril) 5 mg PO BEDTIME [facility]CE[facility] Naloxone HCl (Narcan) 0.2 mg IV Q2MIN PRN PRN Reason: Opiate Reversal Ondansetron HCl (Zofran Odt) 4 mg PO Q8HR PRN PRN Reason: Nausea And Vomiting Ondansetron HCl (Zofran) 4 mg IV Q8HR PRN PRN Reason: Nausea And Vomiting Pantoprazole Sodium (Protonix) 40 mg PO BEDTIME [facility] Pramipexole Dihydrochloride (Mirapex) 0.75 mg PO BEDTIME [facility] Pramipexole Dihydrochloride (Mirapex) 0.75 mg PO PRN PRN PRN Reason: RLS Last Admin: 10/17/19 16:59 Dose: 0.75 mg Documented by: LURDES Rosuvastatin Calcium (Crestor) 40 mg PO BEDTIME [facility] Tramadol HCl (Ultram) 50 mg PO Q8H PRN PRN Reason: Pain Discontinued Medications Pramipexole Dihydrochloride (Mirapex) 0.75 mg PO BEDTIME PRN PRN Reason: RLS Vital Signs Vital signs: Vital Signs - 8 hr 10/17/19 13:00 Temperature 97.5 F L Pulse Rate 93 H Respiratory Rate 18 Blood Pressure 143/74 H Pulse Oximetry 98 MDM - Wound/Laceration <Prakash Barclay DO - Last Filed: 10/17/19 17:20> Lab Data Result diagrams: 10/17/19 13:10 10/17/19 13:10 Discharge Plan Departure Patient Disposition: Admitted As Inpatient Clinical Impression: Complication, postoperative infection Qualifiers: Encounter type: initial encounter Postoperative infection type: deep incisional surgical site Qualified Code(s): T81.42XA - Infection following a procedure, deep incisional surgical site, initial encounter Discharge Date/Time: 10/17/19 13:20 Admit Date/Time: 10/17/19 13:05 Admit Provider: Katherin Regalado ED Sign-out <Prakash Barclay DO - Last Filed: 10/17/19 17:20> Cosign ED Attending Cosignature Attestation: I was immediately available in the department for consultation. This documentation has been reviewed and I agree with assessment and plan. Supervised by Prakash Barclay DO
[2019-10-17 13:31] LABS: Add Manual Diff / Slide Review NO; Basophils Absolute Auto 100 /uL (0-100); Basophils Percent Auto 0.7 % (0-2); Eosinophils Absolute Auto 300 /uL (0-450); Eosinophils Percent Auto 3.9 % (2-4); Hematocrit 36.8 % (36-46); Hemoglobin 12.4 g/dL (12.0-16.0); Lymphocytes Absolute Auto 1600 /uL (1100-4500); Lymphocytes Percent Auto 19.7 % (25-40); Mean Corpuscular HGB Conc 33.6 % (30-36); Mean Corpuscular Hemoglobin 32.4 PG (26-34); Mean Corpuscular Volume 96.5 fL (80-100); Monocytes Absolute Auto 600 /uL (0-900); Monocytes Percent Auto 7.6 % (3-14); Neutrophils Absolute Auto 5500 /uL (1500-7000); Neutrophils Percent Auto 68.1 % (50-75); Platelet Count 332 X10^3/uL (150-400); Red Blood Cell Count 3.82 X10^6/uL (4.0-5.2); White Blood Cell Count 8.1 X10^3/uL (4.5-11.0)
--- NOTE | 2019-10-17 13:32 | PM.HP.1 ---
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 She was discharged after the hematoma was treated in early August, to the local rehab facility [facility]. She has been undergoing dressing changes and physical therapy but then sustained a draining wound/fistula in the last few days. A wound culture done at the facility is growing coag-negative staph. She is now admitted through the emergency department for orthopedic consultation, possible joint washout/revision and antibiotic therapy. The hospitalist service has been consulted to comanage her multiple comorbid medical conditions. She has been relatively stable as far as her atrial fibrillation. There has been no pain, fever, chills, sweating, coughing, urinary symptoms. The white blood count is 8.1 with an INR of 2.1 and a sodium of 133. During her last hospitalization in early September she had quite a bit of bleeding/anemia problems but does not appear to have that flaring currently. The hemoglobin is 12.4. Patient History Medical History (Updated 10/17/19 @ 14:00 by Katherin Regalado MD) Atrial fibrillation (Acute) CAD (coronary artery disease) (Acute) Cardiomyopathy (Acute) GERD (gastroesophageal reflux disease) (Acute) Glucose intolerance (Acute) Hearing impaired (Acute) HLD (hyperlipidemia) (Acute) HTN (hypertension) (Acute) Hypothyroidism (Acute) LBBB (left bundle branch block) (Acute) Nonrheumatic aortic (valve) stenosis (Acute) Osteoarthritis (Acute) Osteoporosis (Acute) Panic disorder (Acute) RLS (restless legs syndrome) (Acute) Systolic heart failure (Acute) T12 compression fracture (Acute 06/04/12) Urinary incontinence (Acute) Vertigo (Acute) Surgical History (Updated 10/17/19 @ 14:01 by Katherin Regalado MD) H/O: hysterectomy (Acute) Hip joint replacement status (Acute) History of aortic valve replacement (Acute ~2001) History of lumpectomy of right breast (Acute) Hx of bilateral cataract extraction (Acute) Hx of removal of cyst (Acute) Hx of tonsillectomy (Acute) S/P CABG x 1 (Acute ~2001) Family & Social History Social History: household members spouse,family Safety & Behavioral: Feels Safe in Current Yes Environment Tobacco & Substance use: Smoking Status Never smoker alcohol intake never Substance Use Type does not use Meds Home Medications and Allergies Home Medications Medication Instructions Recorded Confirmed Type diphenhydramine HCl 25 mg PO BEDTIME PRN #0 06/17/12 10/17/19 History acetaminophen [Tylenol Extra 500 mg PO Q8HP PRN #0 06/18/12 10/17/19 History Strength] tramadol 100 mg PO Q8HP PRN #0 06/18/12 10/17/19 History Caltrate 600 plus D 1 tab PO BID 09/03/19 10/17/19 History carvedilol 25 mg PO BID 09/03/19 10/17/19 History cyclobenzaprine 10 mg PO TID PRN 09/03/19 10/17/19 History ezetimibe [Zetia] 10 mg PO BEDTIME 09/03/19 10/17/19 History levothyroxine [Synthroid] 125 mcg PO SEEINSTR 09/03/19 10/17/19 History lisinopril 5 mg PO BEDTIME 09/03/19 10/17/19 History niacin 1,000 mg PO BID 09/03/19 10/17/19 History omeprazole 40 mg PO BEDTIME 09/03/19 10/17/19 History pramipexole 0.75 mg PO BEDTIME PRN 09/03/19 10/17/19 History rosuvastatin [Crestor] 40 mg PO BEDTIME 09/03/19 10/17/19 History trospium 60 mg PO BEDTIME 09/03/19 10/17/19 History warfarin 4 mg PO SEEINSTR 09/03/19 10/17/19 History warfarin 5 mg PO SEEINSTR 09/03/19 10/17/19 History docusate sodium [DOK] 100 mg PO BID #40 cap 09/29/19 10/17/19 Rx ascorbic acid (vitamin C) [Vitamin 1,000 mg PO DAILY 10/17/19 10/17/19 History C] melatonin 6 mg PO DAILY 10/17/19 10/17/19 History simethicone 250 mg PO Q6HR PRN 10/17/19 10/17/19 History Allergies Allergy/AdvReac Type Severity Reaction Status Date / Time latex Allergy Intermediate ITCHING Verified 10/17/19 13:47 Review of Systems Review of Systems ROS: Yes All systems reviewed with the patient and are negative except as otherwise documented Constitutional Constitutional: Reports fatigue Eyes Eyes: Denies eye pain ENT Ears, Nose, Mouth, and Throat: No dizziness Cardiovascular Cardiovascular: Denies chest pain Respiratory Respiratory: Denies cough and Denies wheezing Gastrointestinal Gastrointestinal: Denies abdominal pain Genitourinary Genitourinary: Denies abnormal vaginal bleeding Musculoskeletal Musculoskeletal: Reports abnormal gait, Denies muscle cramps and Reports muscle weakness Neurologic Neurologic: Reports abnormal gait and Denies dizziness Endocrine Endocrine: Reports fatigue Hematologic/Lymphatic Hematologic/Lymphatic: Denies easy bleeding Allergic/Immunologic Allergic/Immunologic: Denies wheezing Exam Vital Signs (past 8 hours): - 10/17/19 13:00 Temperature 97.5 F L Pulse Rate 93 H Respiratory Rate 18 Blood Pressure 143/74 H Pulse Oximetry 98 Oxygen Delivery Method Room Air Narrative Exam Narrative: She is alert and oriented x3. No apparent distress. Excellent hearing and interaction/engagement. Pupils are equally round and reactive to light and accommodation. Extraocular muscles are intact. Sclerae are pink and nonicteric. Throat looks normal. No lymph nodes are felt head, neck, supraclavicular area. There is no thyromegaly. Heart is irregularly irregular without murmur. Lungs are clear to auscultation bilaterally. Abdomen is soft obese, nontender, no organomegaly. Extremities have quite thickened ankles without pitting edema. There is a mostly well-healed scar on the right lateral hip with a central portion oozing a small amount of yellowish fluid from an apparent sinus tract. Skin no rash or jaundice. Neuro exam motor function is 4/5 throughout. Cranial nerves 2-12 tested intact, there is no tremor. Objective Labs Result Diagrams: 10/17/19 13:10 10/17/19 13:10 Assessment & Plan Assessment & Plan narrative: 1 - Right Hip Infection - Dr. Maldonado to consult and further decisions on surgery/antibiotic timing to be made later today - Culture growing Coag negative staph. Will begin Vancomycin probably later today. - WBC 8.1. No fever. No pain. 2 - Coronary Artery Disease - Continue Metoprolol and Lisinopril 3 - Atrial Fibrillation - Holding Coumadin pending possible revision surgery to the right hip. 4 - Hypothyroidism - Continue Levothyroxine 5 - Hyperlipidemia - Continue Crestor, Niacin and Zetia 6 - Restless Leg Syndrome - Continue HS Pramipexole. 7 - Mechanical Aortic Valve -she is at risk for stroke while off anticoagulants so that will need to be managed as tightly as possible, in the context of her previous bleeding problems on anticoagulation. 9 - Hyponatremia -recheck sodium 10/17. Gentle IV hydration.
[2019-10-17 13:49] LABS: BUN Creatinine Ratio 23.4 (6-22); Blood Urea Nitrogen 11 mg/dL (7-17); Calcium 8.7 mg/dL (8.4-10.2); Carbon Dioxide 29 mmol/L (22-32); Chloride 100 mmol/L (98-107); Estimated Glomerular Filt Rate > 60.0 mL/min (>60); Glucose 121 mg/dL (80-110); HEMOLYSIS 36 (0-50); INR 2.1 (0.9-1.3); Potassium 4.2 mmol/L (3.4-5.1); Prothrombin Time 23.8 SECONDS (10.1-12.7); Sodium 133 mmol/L (137-145)
[2019-10-17 13:50] LABS: Lactate (Lactic Acid) 1.1 mmol/L (0.7-2.1)
--- NOTE | 2019-10-17 14:58 | PC.NURSE ---
Admit from ER Pt arrived on stretcher, able to pivot transfer to bed. Weakness to RLE, It's been that way, I need a lot of PT Pt completed admission assessment, skin check with Wound to R surgical site, appears to have tunneling, and Dr Maldonado to evaluate for washout. Pt has only water at bedside. NS @ 60 mls started to R PIV.
[2019-10-17] MEDS: SODIUM CHLORIDE 0.9% 1,000 ML 60 ML IV (15:02)
[2019-10-17] MEDS: PRAMIPEXOLE 0.25 MG TABLET 0.75 MG PO (16:59)
--- NOTE | 2019-10-17 17:13 | PM.CN ---
History of Present Illness Consult details Date Patient Seen: 10/17/19 Time Patient Seen: 17:13 Chief complaint: hip surgery cite infected Reason for consult: right PJI infection Narrative: Patient is a 79-year-old female who underwent a right total hip arthroplasty approximately 5 weeks ago. Her postoperative course was complicated by incessant drainage which required a trip back to the OR approximately a week after the index procedure. At that time it was noted that there is a large hematoma and there was no disruption of the fascial plane. This was washed out and closed. Patient was then seen in the clinic several days ago with concerns for dehiscence of wound. Plan at that time was to be treated with dressing changes however she presents to the ER today with worsening of symptoms and worsening drainage. Meds Home Medications and Allergies Home Medications Medication Instructions Recorded Confirmed Type diphenhydramine HCl 25 mg PO BEDTIME PRN #0 06/17/12 10/17/19 History acetaminophen [Tylenol Extra 500 mg PO Q8HP PRN #0 06/18/12 10/17/19 History Strength] tramadol 100 mg PO Q8HP PRN #0 06/18/12 10/17/19 History Caltrate 600 plus D 1 tab PO BID 09/03/19 10/17/19 History carvedilol 25 mg PO BID 09/03/19 10/17/19 History cyclobenzaprine 10 mg PO TID PRN 09/03/19 10/17/19 History ezetimibe [Zetia] 10 mg PO BEDTIME 09/03/19 10/17/19 History levothyroxine [Synthroid] 125 mcg PO SEEINSTR 09/03/19 10/17/19 History lisinopril 5 mg PO BEDTIME 09/03/19 10/17/19 History niacin 1,000 mg PO BID 09/03/19 10/17/19 History omeprazole 40 mg PO BEDTIME 09/03/19 10/17/19 History pramipexole 0.75 mg PO BEDTIME PRN 09/03/19 10/17/19 History rosuvastatin [Crestor] 40 mg PO BEDTIME 09/03/19 10/17/19 History trospium 60 mg PO BEDTIME 09/03/19 10/17/19 History warfarin 4 mg PO SEEINSTR 09/03/19 10/17/19 History warfarin 5 mg PO SEEINSTR 09/03/19 10/17/19 History docusate sodium [DOK] 100 mg PO BID #40 cap 09/29/19 10/17/19 Rx ascorbic acid (vitamin C) [Vitamin 1,000 mg PO DAILY 10/17/19 10/17/19 History C] melatonin 6 mg PO DAILY 10/17/19 10/17/19 History simethicone 250 mg PO Q6HR PRN 10/17/19 10/17/19 History Allergies Allergy/AdvReac Type Severity Reaction Status Date / Time latex Allergy Intermediate ITCHING Verified 10/17/19 13:47 Review of Systems Review of Systems ROS: Yes All systems reviewed with the patient and are negative except as otherwise documented Exam Vital Signs (past 8 hours): - 10/17/19 13:00 10/17/19 13:40 10/17/19 15:35 Temperature 97.5 F L 97.3 F L 97.8 F Pulse Rate 93 H 88 84 Respiratory Rate 18 17 18 Blood Pressure 143/74 H 110/62 117/62 Pulse Oximetry 98 99 95 Oxygen Delivery Method Room Air Oxygen Flow Rate 0 Narrative Exam Narrative: Neurovascularly intact in the right lower extremity. Surgical incision with several areas of dehiscence and cloudy drainage. Very concerning for deep infection. Objective Labs Result Diagrams: 10/17/19 13:10 10/17/19 13:10 Labs: Laboratory Results - last 24 hr 10/17/19 10/17/19 10/17/19 13:10 13:10 13:10 WBC 8.1 RBC 3.82 L Hgb 12.4 Hct 36.8 MCV 96.5 MCH 32.4 MCHC 33.6 RDW 17.0 H Plt Count 332 Neut % (Auto) 68.1 Lymph % (Auto) 19.7 L [place] % (Auto) 7.6 Eos % (Auto) 3.9 Baso % (Auto) 0.7 Neut # (Auto) 5500 Lymph # (Auto) 1600 [place] # (Auto) 600 Eos # (Auto) 300 Baso # (Auto) 100 PT 23.8 H INR 2.1 H Sodium 133 L Potassium 4.2 Chloride 100 Carbon Dioxide 29 BUN 11 Creatinine 0.47 L Estimated GFR > 60.0 BUN/Creatinine Ratio 23.4 H Glucose 121 H Lactate Calcium 8.7 10/17/19 13:10 WBC RBC Hgb Hct MCV MCH MCHC RDW Plt Count Neut % (Auto) Lymph % (Auto) [place] % (Auto) Eos % (Auto) Baso % (Auto) Neut # (Auto) Lymph # (Auto) [place] # (Auto) Eos # (Auto) Baso # (Auto) PT INR Sodium Potassium Chloride Carbon Dioxide BUN Creatinine Estimated GFR BUN/Creatinine Ratio Glucose Lactate 1.1 Calcium Assessment & Plan Assessment & Plan narrative: Patient is a 79-year-old female who is now approximately 5 weeks status post right total hip arthroplasty. Her postoperative course was complicated by incessant drainage which required a trip back to the OR approximately a week after the index procedure for evacuation of hematoma. At that time was noted that the fascial plane was intact. However at today's exam she has continued drainage she is now 5 weeks status post right total hip arthroplasty is my believe that this is likely seeded the joint. 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 I had a long discussion with the patient regarding her symptoms as well as possible treatment outcomes. I discussed the risks and benefits of surgery risks of surgery include continued infection, need for future surgeries, DVT, iatrogenic fracture, PE, continued pain, etc. Surgical plan would consist of explanting the right total hip arthroplasty and placing a cement spacer as stage I of a two-stage revision. She would require 6 weeks of IV antibiotics followed by 2 week antibiotic holiday followed by aspiration of the joint followed by reimplantation if the aspiration confirms clearance of the infection. Plan will be to go to the OR on Sunday for explant. Time Spent With Patient Time with patient: 15-24 minutes
[2019-10-17] MEDS: diphenhydrAMINE 25 MG TABLET PO (19:01)
--- NOTE | 2019-10-17 19:42 | PC.NURSE ---
Addendum entered by Nithya Allan R.N. 10/17/19 23:47: Pt states painful right arm @ iv site 08/08. IV Vancomycin rate slowed to 150 cc/hr. Right ac iv site soft without erythema. No signs of infiltration. Pt requests tylenol for this complaint. Refuses offer for narcotic pain medications. Dr. Regalado in house and order obtained. Pt medicated and no further complaints verbalized. Original Note: Dr. Sanabria has seen patient this evening shift. Pt denies pain to right hip, but requests mirapex for restless leg syndrome. This was given. Yellow/brown serous drainage from right hip incision. Placed two abd pads along incision line to absorb. BL calf scd's placed with pillow between legs. Encouraged to call for needs. Incontinent brief in place.
[2019-10-17] MEDS: VANCOMYCIN 1,000 MG/200 ML PIGGYBACK 200 MG IV (20:19)
[2019-10-17] MEDS: ACETAMINOPHEN 325 MG TABLET 650 MG PO (21:25)
[2019-10-17] MEDS: carvediloL 25 MG TABLET PO (21:25)
[2019-10-17] MEDS: ROSUVASTATIN 10 MG TABLET 40 MG PO (21:26)
[2019-10-17] MEDS: DOCUSATE 100 MG CAPSULE PO (21:26)
[2019-10-17] MEDS: lisinopriL 5 MG TABLET PO (21:28)
[2019-10-17] MEDS: PANTOPRAZOLE 40 MG TABLET PO (21:28)
[2019-10-17] MEDS: EZETIMIBE 10 MG TABLET PO (21:30)
[2019-10-18 04:10] VITALS: BP 111/54; PULSE 88; RESP 20; TEMP 36.9; O2SAT 98
--- NOTE | 2019-10-18 04:18 | PC.NURSE ---
Patient has had no complaints of pain this shift. Surgical site has been weeping and ABD pads have been placed for drainage. Drainage has been serous and clear. Patient's CMS is intact.
[2019-10-18] MEDS: SODIUM CHLORIDE 0.9% 1,000 ML 60 ML IV (05:40)
[2019-10-18] MEDS: LEVOTHYROXINE 125 MCG TABLET PO (06:09)
[2019-10-18 06:20] LABS: INR 2.2 (0.9-1.3); Prothrombin Time 25.1 SECONDS (10.1-12.7)
[2019-10-18 06:22] LABS: Add Manual Diff / Slide Review NO; Basophils Absolute Auto 100 /uL (0-100); Eosinophils Absolute Auto 400 /uL (0-450); Eosinophils Percent Auto 6.1 % (2-4); Hematocrit 33.5 % (36-46); Hemoglobin 11.6 g/dL (12.0-16.0); Lymphocytes Absolute Auto 1500 /uL (1100-4500); Lymphocytes Percent Auto 25.2 % (25-40); Mean Corpuscular HGB Conc 34.5 % (30-36); Mean Corpuscular Hemoglobin 33.1 PG (26-34); Mean Corpuscular Volume 95.9 fL (80-100); Monocytes Absolute Auto 500 /uL (0-900); Monocytes Percent Auto 8.9 % (3-14); Neutrophils Absolute Auto 3500 /uL (1500-7000); Neutrophils Percent Auto 58.8 % (50-75); Platelet Count 305 X10^3/uL (150-400); Red Cell Distribution Width 16.7 % (11.6-14.8); White Blood Cell Count 5.9 X10^3/uL (4.5-11.0)
[2019-10-18 06:27] LABS: Alanine Aminotransferase 24 IU/L (<35); Albumin 3.1 g/dL (3.5-5.0); Albumin Globulin Ratio 0.9 (1.0-2.8); Alkaline Phosphatase 64 U/L (38-126); Aspartate Aminotransferase 33 IU/L (14-36); BUN Creatinine Ratio 16.3 (6-22); Bilirubin Total 0.5 mg/dL (0.2-1.3); Blood Urea Nitrogen 8 mg/dL (7-17); Calcium 8.1 mg/dL (8.4-10.2); Carbon Dioxide 29 mmol/L (22-32); Chloride 103 mmol/L (98-107); Estimated Glomerular Filt Rate > 60.0 mL/min (>60); Globulin 3.5 g/dL (1.7-4.1); Glucose 110 mg/dL (80-110); HEMOLYSIS < 15 (0-50); Potassium 3.4 mmol/L (3.4-5.1); Sodium 136 mmol/L (137-145); Total Protein 6.6 g/dL (6.3-8.2)
[2019-10-18 08:00] VITALS: BP 116/62; PULSE 87; RESP 18; TEMP 36.2; O2SAT 99
[2019-10-18] MEDS: VANCOMYCIN 1,000 MG/200 ML PIGGYBACK 200 MG IV ×2 (08:30→20:20)
[2019-10-18] MEDS: carvediloL 25 MG TABLET PO ×2 (08:33→20:20)
--- NOTE | 2019-10-18 09:28 | PM.PN.1 ---
Subjective Subjective Date Patient Seen: 10/18/19 Time Patient Seen: 09:28 Interval history: Patient is comfortable this am. No complaints. Exam Vital Signs (past 8 hours): - 10/18/19 04:10 10/18/19 08:00 Temperature 98.4 F 97.2 F L Pulse Rate 88 87 Respiratory Rate 20 18 Blood Pressure 111/54 L 116/62 Pulse Oximetry 98 99 Oxygen Delivery Method Room Air Oxygen Flow Rate 0 Narrative Exam Narrative: No change in exam Objective Labs Result Diagrams: 10/18/19 06:02 10/18/19 06:02 Labs: Laboratory Results - last 24 hr 10/17/19 10/17/19 10/17/19 13:10 13:10 13:10 WBC 8.1 RBC 3.82 L Hgb 12.4 Hct 36.8 MCV 96.5 MCH 32.4 MCHC 33.6 RDW 17.0 H Plt Count 332 Neut % (Auto) 68.1 Lymph % (Auto) 19.7 L [place] % (Auto) 7.6 Eos % (Auto) 3.9 Baso % (Auto) 0.7 Neut # (Auto) 5500 Lymph # (Auto) 1600 [place] # (Auto) 600 Eos # (Auto) 300 Baso # (Auto) 100 PT 23.8 H INR 2.1 H Sodium 133 L Potassium 4.2 Chloride 100 Carbon Dioxide 29 BUN 11 Creatinine 0.47 L Estimated GFR > 60.0 BUN/Creatinine Ratio 23.4 H Glucose 121 H Lactate Calcium 8.7 Total Bilirubin AST ALT Alkaline Phosphatase Total Protein Albumin Globulin Albumin/Globulin Ratio 10/17/19 10/18/19 10/18/19 13:10 06:02 06:02 WBC 5.9 RBC 3.50 L Hgb 11.6 L Hct 33.5 L MCV 95.9 MCH 33.1 MCHC 34.5 RDW 16.7 H Plt Count 305 Neut % (Auto) 58.8 Lymph % (Auto) 25.2 [place] % (Auto) 8.9 Eos % (Auto) 6.1 H Baso % (Auto) 1.0 Neut # (Auto) 3500 Lymph # (Auto) 1500 [place] # (Auto) 500 Eos # (Auto) 400 Baso # (Auto) 100 PT INR Sodium 136 L Potassium 3.4 Chloride 103 Carbon Dioxide 29 BUN 8 Creatinine 0.49 L Estimated GFR > 60.0 BUN/Creatinine Ratio 16.3 Glucose 110 Lactate 1.1 Calcium 8.1 L Total Bilirubin 0.5 AST 33 ALT 24 Alkaline Phosphatase 64 Total Protein 6.6 Albumin 3.1 L Globulin 3.5 Albumin/Globulin Ratio 0.9 L 10/18/19 06:02 WBC RBC Hgb Hct MCV MCH MCHC RDW Plt Count Neut % (Auto) Lymph % (Auto) [place] % (Auto) Eos % (Auto) Baso % (Auto) Neut # (Auto) Lymph # (Auto) [place] # (Auto) Eos # (Auto) Baso # (Auto) PT 25.1 H INR 2.2 H Sodium Potassium Chloride Carbon Dioxide BUN Creatinine Estimated GFR BUN/Creatinine Ratio Glucose Lactate Calcium Total Bilirubin AST ALT Alkaline Phosphatase Total Protein Albumin Globulin Albumin/Globulin Ratio Assessment & Plan Assessment & Plan narrative: Continue medial optimization in preparation for right hip irrigation and debridement, explant of right PRIETO, placement of abx spacer. NPO after midnight Time Spent With Patient Time with patient: less than 15 minutes Quality VTE Deep Vein Thrombosis/Pulmonary Embolism Present on Admission: No
[2019-10-18] MEDS: PHYTONADIONE (VIT K1) 5 MG TABLET 2.5 MG PO (11:02)
--- NOTE | 2019-10-18 11:13 | PC.NURSE ---
Day Shift- Right hip incision dressings Abd pad X2 removed for approx 80% saturation of serous like fluid. Incision cleansed with NS, pat dry, small amount of oozing noted along small open areas of incision. Proximal end of dressing has open area with slough like material. Purulent drainage noted as well. Pt tolerated well. 2 Abd pads placed over incision, secured with paper tape and brief.
[2019-10-18 12:00] VITALS: BP 102/58; PULSE 84; RESP 18; TEMP 36.1; O2SAT 98
--- NOTE | 2019-10-18 15:04 | CM.DANOTE ---
Discharge Planning/Care Management DCP: assessment: case received, EMR reviewed. Met with pt during Team Bedside Rounds. Introduced self and role. Pt is an 79 year old female who admitted yesterday afternoon to care of hospitalist team. Orthopedic team: Dr. aSnabria is consulting. Payer: Medicare and [employer] Admission status: INPT: confirmed by [facility] PCP: Gino Cerda. Pt confirms her plan to return to [facility] once she is stable for d/c and that she has made arrangements with the facility to hold her bed. Have now confirmed same with engineering production liaison on for [facility] this weekend. Pt is expected to be medically stable for surgery tomorrow and an I&D of R hiop, explant of R PRIETO and placement of antibiotic spacer is planned. P: Return to [facility] when stable for same to continue rehab/recovery under her Medicare snf benefit. CM Discharge Assessment Start: 10/18/19 15:01 Freq: Status: Active Protocol: Document 10/18/19 15:01 ITV (Rec: 10/18/19 15:03 ITV [id number]) Discharge Planning Assessment Advance Directives? No Advance Directives on File No History Provided By Patient,Medical Record Prior Living Arrangements Skilled Nurse Facility Comment has been at [facility] under Medicare snf benefit. Is patient alert and oriented? Yes Patient/Family Preference [facility] Facility Whiteboard Updated in Patient Room with Yes name and ext. # of Sheet Metal Layout Mechanic Review Status In Process
[2019-10-18 16:30] VITALS: BP 104/57; PULSE 83; RESP 18; TEMP 36.7; O2SAT 98
--- NOTE | 2019-10-18 17:02 | P.PN_ITS ---
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 She has been afebrile. Wound culture positive for coag-negative staph. She denies acute pain. Exam Vital Signs (past 8 hours): - 10/18/19 12:00 Temperature 96.9 F L Pulse Rate 84 Respiratory Rate 18 Blood Pressure 102/58 L Pulse Oximetry 98 Oxygen Delivery Method Room Air Oxygen Flow Rate 0 Narrative Exam Narrative: General: Tired-appearing female NAD Breathing nonlabored Extremities: There is a well-healed scar on the right lateral hip with central portion oozing small amount of yellowish fluid from an apparent sinus tract Objective Labs Result Diagrams: 10/18/19 06:02 10/18/19 06:02 Labs: Laboratory Results - last 24 hr 10/18/19 10/18/19 10/18/19 06:02 06:02 06:02 WBC 5.9 RBC 3.50 L Hgb 11.6 L Hct 33.5 L MCV 95.9 MCH 33.1 MCHC 34.5 RDW 16.7 H Plt Count 305 Neut % (Auto) 58.8 Lymph % (Auto) 25.2 [place] % (Auto) 8.9 Eos % (Auto) 6.1 H Baso % (Auto) 1.0 Neut # (Auto) 3500 Lymph # (Auto) 1500 [place] # (Auto) 500 Eos # (Auto) 400 Baso # (Auto) 100 PT 25.1 H INR 2.2 H Sodium 136 L Potassium 3.4 Chloride 103 Carbon Dioxide 29 BUN 8 Creatinine 0.49 L Estimated GFR > 60.0 BUN/Creatinine Ratio 16.3 Glucose 110 Calcium 8.1 L Total Bilirubin 0.5 AST 33 ALT 24 Alkaline Phosphatase 64 Total Protein 6.6 Albumin 3.1 L Globulin 3.5 Albumin/Globulin Ratio 0.9 L Assessment & Plan Assessment & Plan narrative: 1 - Right Hip Infection -appreciate consult from Dr. Ayan Oropeza -wound culture growing Coag negative staph. - WBC 8.1. No fever. No pain. -continue IV vancomycin, pharmacy to dose and monitor trough levels -medically stable for surgery when INR at safe level 2 - Coronary Artery Disease, stable -not having chest pain or dyspnea -history of 1 vessel CAB - Continue Metoprolol and Lisinopril 3 - Mechanical Aortic Valve -holding warfarin in anticipation of revision surgery to the right hip -vitamin K 2.5 mg p.o. given 10/17 a.m. -recheck INR 10/18 3 - Atrial Fibrillation, paroxysmal - Holding warfarin as above -currently sinus rhythm 4 - Hypothyroidism, NOS - Continue Levothyroxine 5 - Hyperlipidemia - Continue Crestor, Niacin and Zetia 6 - Restless Leg Syndrome - Continue HS Pramipexole. 7 - Hyponatremia -improved with hydration -Hep-Lock IV 8 -past diagnoses cardiomyopathy, CHF -patient had echo 09/15/2019 which showed normal LVEF severe MAC with moderate mitral stenosis, well-functioning aortic valve. I do not have any further information on diagnosis of cardiomyopathy or CHF. She is not on diuretic m anagement and so I do not think she has clinically significant CHF. Quality VTE Deep Vein Thrombosis/Pulmonary Embolism Present on Admission: No
[2019-10-18] MEDS: PRAMIPEXOLE 0.25 MG TABLET 0.75 MG PO (18:34)
[2019-10-18 20:00] VITALS: BP 99/53; PULSE 87; RESP 16; TEMP 36.3
[2019-10-18] MEDS: ROSUVASTATIN 10 MG TABLET 40 MG PO (20:20)
[2019-10-18] MEDS: DOCUSATE 100 MG CAPSULE PO (20:20)
[2019-10-18] MEDS: PANTOPRAZOLE 40 MG TABLET PO (20:20)
[2019-10-18] MEDS: EZETIMIBE 10 MG TABLET PO (20:21)
[2019-10-18] MEDS: diphenhydrAMINE 25 MG TABLET PO (21:37)
--- NOTE | 2019-10-18 22:07 | PC.NURSE ---
Addendum entered by Yadira Gallegos R.N. 10/18/19 23:06: Drsg to R. Hip changed. Original Note: Assumed care of pt at 1500. Pt resting in bed during bedside hand-off. Drsg c/d/i. CMS+, denies pain. IVF d/c'd per MD order. Vanco started at 1999. Infusion ran a slower rate as pt c/o of pain during prior infusion. Arm elevated on pillowing, monitoring frequently, pt denies pain or burning. No s/s of infiltration.
[2019-10-19] VITALS (35 sets, daily range): BP systolic 77–117; BP diastolic 42–64; PULSE 70–92; RESP 11–29; TEMP 35.6–37.7; O2SAT 80–99; BMI 41.7
[2019-10-19 06:24] LABS: INR 1.5 (0.9-1.3); Prothrombin Time 16.8 SECONDS (10.1-12.7)
--- NOTE | 2019-10-19 06:35 | PC.NURSE ---
Patient has no complaints of pain. VSS, patient is hypotensive in the low 100/50's. Patient CMS is intact, incision site covered w/ABD pads for drainage. Patient was NPO at midnight.
[2019-10-19 08:34] LABS: Vancomycin Trough 10.3 ug/mL (10-20)
[2019-10-19] MEDS: VANCOMYCIN TROUGH 1 REQUEST MISC (08:43)
--- NOTE | 2019-10-19 09:04 | PM.PREOP ---
Pre-operative Note Interval Note History & Physical reviewed/Exam performed by Physician: Yes Changes to H&P: No H&P completed within 30 days and has changed as indicated here:: Plan for irrigation and debridement right surgical wound; explant of R PRIETO, placement of abx spacer
[2019-10-19] MEDS: LACTATED RINGERS 1,000 ML 42 ML IV ×3 (09:05→13:24)
[2019-10-19] MEDS: VANCOMYCIN 1,000 MG/200 ML PIGGYBACK 200 MG IV (09:17)
--- NOTE | 2019-10-19 11:33 | SUR.HOLD ---
Late entry: Pt brought down to PACVU area, Dr. Wayne informed of no IV present, inserted 18 gauge to l wrist. Vancomycin that was due at 0800 was then hung, Dr Sanabria in to talk with pt and then pt soon after that brought to OR.
[2019-10-19] MEDS: VANCOMYCIN 1,000 MG VIAL 1000 MG TOP (11:36)
--- NOTE | 2019-10-19 12:46 | PM.OP.1 ---
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 Intact healthy-appearing fascial closure. No rents. Closure Type: non-primary (Complex multilayered closure) Specimen(s): other (Multiple tissue swabs, multiple tissue cultures) Estimated Blood Loss (mL): 100 Procedure in detail: Patient was met in the preoperative holding area where the site and side of surgery marked by MD review of consent was performed with the patient and this was signed. All last minute questions were answered. Patient was then brought back in the operating room where she was transferred onto the operating table and induced under general anesthesia. The right hip was then prepped and draped in the normal sterile fashion. The dehisced wound tract was then ellipsed out to healthy skin border. This was immediately removed from the field. This point we then entered the infected seroma pocket were swabs were taken as well as 3 tissue cultures. The seroma pocket was then suctioned away. All bentley of the seroma pocket were sharply debrided. At this point we then inspected the fascial closure which appeared to be healing well with no signs of deep infection. There were no rents in the fascia and pressure on the closure did not express any fluid from deep. At this point we irrigated with 3 L of normal saline followed by Betadine wash. We then took a 2nd look and debrided a couple more areas of necrotic appearing fat. No areas of purulence were encountered. We then again inspected the fascial closure which remained intact without any signs of dehiscence. The wound was then irrigated with a further 3 L of normal saline. At this point I scrubbed out and called the surgeon who placed the primary hip and discussed my findings. We decided to not go deep to the fascial layer since it appeared intact and healing well. 1 g of vancomycin was then placed into the wound and a CHING drain was placed. A complex multilayered closure with number 0 PDS was then performed to the subcutaneous layer where a 2 0 PDS in interrupted fashion was used to close subcutaneous layer followed by vertical mattress with a #1 Nylon. A deangelo dressing was then placed as well as a 2 x 2 and Tegaderm for the CHING drain site. Complications: none Post-operative Condition: stable Disposition: PACU Plan for aftercare: Weightbearing as tolerated right lower extremity. Four weeks of IV vancomycin. CHING drain should remain in place until scant drainage. Deangelo to remain in place until follow-up. Sutures to remain in place until 3 weeks postop
[2019-10-19] MEDS: SODIUM CHLORIDE 0.9% 1,000 ML 1000 ML IV (13:05)
--- NOTE | 2019-10-19 13:30 | CM.DPC ---
DCP: continued: Case discussed in Team Rounds. Pt is going to surgery today and is expected back to her acute care floor this afternoon. Dr. Sanabria has completed: I&D R hip for infected seroma with wound dehiscence and a complex closure. Dr. Sanabria confirms in his op note that he plans for 6 weeks of IV vancomycin. Dr. Luna stated that a PICC would be ordered. Will update [facility] admissions. Plan remains: return to [facility] to continue care under Medicare snf benefit. They are holding pt's bed in expectation of her return
[2019-10-19] MEDS: HYDROMORPHONE 2 MG INJ IV ×3 (13:38→14:00)
--- NOTE | 2019-10-19 13:46 | SUR.PHASEI ---
BP low, Dr. Wayne to bedside, IV rate increased head of bed lowered. IV bag infused, and 3rd LR hung.
--- NOTE | 2019-10-19 14:02 | SUR.PHASEI ---
Dilaudid in small doses being given, due to low BP, pain resolving slowly
[2019-10-19] MEDS: ACETAMINOPHEN IV 1,000 MG/100 ML VIAL 400 MG IV (14:13)
[2019-10-19] MEDS: TRAMADOL 50 MG TABLET PO ×2 (14:16→21:49)
--- NOTE | 2019-10-19 14:50 | SUR.PHASEI ---
BP now wnl. arterial line d/c'ed. pressure held then dressing placed. Site wnl. coban dressing applied.
--- NOTE | 2019-10-19 17:45 | PM.PN.1 ---
Subjective Subjective Date Patient Seen: 10/19/19 Interval history: Patient is 79-year-old female 5 weeks postop right total hip arthroplasty. She is status post irrigation debridement of right hip infected seroma with wound dehiscences on 10/19/2019. Patient is seen on the floor after her surgery. She is eating dinner and appears comfortable. Exam Vital Signs (past 8 hours): - 10/19/19 11:19 10/19/19 12:50 10/19/19 12:55 Temperature 98.7 F Pulse Rate 79 89 88 Respiratory Rate 16 23 16 Blood Pressure 96/54 L 95/53 L 78/42 L Pulse Oximetry 98 95 94 10/19/19 12:56 10/19/19 13:04 10/19/19 13:09 Temperature Pulse Rate 88 84 83 Respiratory Rate 22 19 29 H Blood Pressure 77/43 L 82/45 L 83/48 L Pulse Oximetry 96 97 96 10/19/19 13:13 10/19/19 13:18 10/19/19 13:24 Temperature Pulse Rate 83 82 80 Respiratory Rate 22 19 22 Blood Pressure 89/51 L 88/50 L 88/49 L Pulse Oximetry 98 97 98 10/19/19 13:29 10/19/19 13:33 10/19/19 13:38 Temperature Pulse Rate 80 81 80 Respiratory Rate 18 23 22 Blood Pressure 92/48 L 92/53 L 93/49 L Pulse Oximetry 97 97 97 10/19/19 13:44 10/19/19 13:50 10/19/19 13:54 Temperature Pulse Rate 78 80 80 Respiratory Rate 15 20 16 Blood Pressure 85/52 L 94/52 L 92/51 L Pulse Oximetry 97 97 97 10/19/19 13:58 10/19/19 14:03 10/19/19 14:09 Temperature 98.1 F Pulse Rate 78 78 77 Respiratory Rate 12 15 13 Blood Pressure 93/47 L 90/53 L 88/46 L Pulse Oximetry 97 96 97 10/19/19 14:14 10/19/19 14:29 10/19/19 14:35 Temperature Pulse Rate 77 80 76 Respiratory Rate 11 L 18 15 Blood Pressure 93/49 L 97/52 L 101/56 L Pulse Oximetry 97 98 99 10/19/19 14:40 10/19/19 14:45 03/22/20 15:10 Temperature 97.6 F Pulse Rate 81 87 81 Respiratory Rate 16 16 18 Blood Pressure 100/61 104/59 L 93/45 L Pulse Oximetry 97 99 95 10/19/19 15:57 10/19/19 16:09 10/19/19 17:12 Temperature 96.2 F L 96.0 F L 96.7 F L Pulse Rate 80 80 70 Respiratory Rate 18 18 16 Blood Pressure 106/57 L 101/55 L 104/51 L Pulse Oximetry 80 L 92 95 Oxygen Delivery Method Room Air Oxygen Flow Rate 0 Narrative Exam Narrative: General: Alert, pleasant NAD Objective Labs Result Diagrams: 10/18/19 06:02 10/18/19 06:02 Labs: Laboratory Results - last 24 hr 10/19/19 10/19/19 10/19/19 05:52 07:45 07:45 PT 16.8 H D INR 1.5 H Vancomycin Trough 10.3 Blood Type A Positive Antibody Screen Negative Assessment & Plan Assessment & Plan narrative: 1 - Right hip infected seroma not involving prosthesis -status post irrigation debridement on 10/19/[address] Sanabria -wound culture growing Coag negative staph. - WBC 8.1. No fever. No pain. -continue IV vancomycin x 4 weeks, pharmacy to dose and monitor trough levels -weight-bearing as tolerated. Per op note: CHING drain should remain in place until scant drainage. Merlene should remain in place until ortho follow-up. Sutures to remain in place until 3 weeks postop. -PICC line on Sunday to continue IV antibiotic and PT at [facility] 2 - Coronary Artery Disease, stable -not having chest pain or dyspnea -history of 1 vessel CAB -Continue Crestor, Niacin and Zetia 3. Hypertension -she has been mildly hypotensive perioperative lead -held her lisinopril postop -decrease carvedilol to 6.25 mg b.i.d., can resume usual dose of 25 mg b.i.d. once blood pressures are stable for 24 hours 4 - Mechanical Aortic Valve -held warfarin and received vitamin K 2.5 mg preop -resumed warfarin 5 mg on 10/18 after surgery, then 2.5 mg q.p.m. -check INR 10/21, patient states she has been in range on 5 mg 1 day a week and 2.5 mg the other days of the week 5 - Atrial Fibrillation, paroxysmal -currently sinus rhythm 6 - Hypothyroidism, NOS - Continue Levothyroxine 7 - Restless Leg Syndrome - Continue HS Pramipexole. 8 - Hyponatremia, mild in nature sodium > 130 -improved with hydration -Hep-Lock IV 9 -past diagnoses cardiomyopathy, CHF -patient had echo 09/15/2019 which showed normal LVEF severe MAC with moderate mitral stenosis, well-functioning aortic valve. I do not have any further information on diagnosis of cardiomyopathy or CHF. She is not on diuretic management and so I do not think she has clinically significant CHF. Quality VTE Deep Vein Thrombosis/Pulmonary Embolism Present on Admission: No
[2019-10-19] MEDS: WARFARIN 5 MG TABLET PO (18:33)
[2019-10-19] MEDS: CYCLOBENZAPRINE 10 MG TABLET PO (18:38)
[2019-10-19] MEDS: ACETAMINOPHEN 325 MG TABLET 650 MG PO (18:39)
[2019-10-19] MEDS: SENNOSIDES 8.6 MG TABLET 17.2 MG PO (20:05)
[2019-10-19] MEDS: DOCUSATE 100 MG CAPSULE PO (20:05)
[2019-10-19] MEDS: EZETIMIBE 10 MG TABLET PO (20:05)
[2019-10-19] MEDS: PRAMIPEXOLE 0.25 MG TABLET 0.75 MG PO (20:06)
[2019-10-19] MEDS: ROSUVASTATIN 10 MG TABLET 40 MG PO (20:06)
[2019-10-19] MEDS: PANTOPRAZOLE 40 MG TABLET PO (20:06)
[2019-10-19] MEDS: VANCOMYCIN 1,250 MG in SODIUM CHLORIDE 0.9% 250 ML IV (21:42)
--- NOTE | 2019-10-19 22:52 | PC.NURSE ---
Pt is A and O x 4. VSS. She is able to sleep. She rates her pain 4-7/10, gets adequate relief from 650 mg APAP and 50 mg Ultram. She c/o RLS in right leg. She got relief with .75 mg Mirapex. CHING = 40 mL. PICCO intact. Voiding clear yellow 400 mL indwelling [place]. Able to eat + BTs and + flatus. LS clear but dim in bases. One run of 8 Vtach this shift. Asymptomatic.
[2019-10-20] MEDS: ACETAMINOPHEN 325 MG TABLET 650 MG PO ×3 (01:54→10:42)
--- NOTE | 2019-10-20 03:35 | PC.NURSE ---
Patient complains of pain 03/08. Patient medicated alternating w/ Tramadol and Tylenol. Patient may need order for 100mg of Tramadol instead of 50mg. Patient has TRAVON dressing clean/dry/intact. Patient CMS is intact, neuro WNL. Q2 turns added to patient worklist to since patient has limited mobility. Patient on tele: NS, BBB. Patient educated about use of IS and is wearing SCD's. Bed is low and locked, call light within reach, Bed alarm activated.
[2019-10-20] MEDS: TRAMADOL 50 MG TABLET PO ×2 (05:18→10:58)
[2019-10-20] MEDS: LEVOTHYROXINE 125 MCG TABLET PO (05:20)
[2019-10-20 06:08] VITALS: BP 136/73; PULSE 86; RESP 18; TEMP 36.3; O2SAT 98
[2019-10-20] MEDS: VANCOMYCIN 1,250 MG in SODIUM CHLORIDE 0.9% 250 ML IV (06:37)
[2019-10-20 08:00] VITALS: BP 123/56; PULSE 90; RESP 18; TEMP 37.1; O2SAT 99
[2019-10-20] MEDS: DOCUSATE 100 MG CAPSULE PO (08:14)
[2019-10-20] MEDS: carvediloL 25 MG TABLET 6.25 MG PO (08:14)
--- NOTE | 2019-10-20 08:54 | PM.PN.1 ---
Subjective Subjective Date Patient Seen: 10/20/19 Time Patient Seen: 08:54 Interval history: Looks good this am. Sitting up in bed eating breakfast. No pain complaints. Conversive. Exam Vital Signs (past 8 hours): - 10/20/19 06:08 10/20/19 08:00 Temperature 97.3 F L 98.8 F Pulse Rate 86 90 Respiratory Rate 18 18 Blood Pressure 136/73 123/56 L Pulse Oximetry 98 99 Oxygen Delivery Method Room Air Oxygen Flow Rate 0 Narrative Exam Narrative: Drain with serosang output. TRAVON dressing with a 'quarter' size area of strike-through at the distal 1/2 of the dressing. No loss of suction. No other area of strike-through. NV intact RLE. Objective Labs Result Diagrams: 10/18/19 06:02 10/18/19 06:02 Labs: Laboratory Results - last 24 hr 10/19/19 07:45 Blood Type A Positive Antibody Screen Negative Assessment & Plan Assessment & Plan narrative: Patient is a 79 yo female who underwent a primary R PRIETO 5 weeks ago. Her post-op course was complicated by ICU stay and large hematoma formation that required return trip to the OR. She subsequently returned with a draining right hip wound. Operative plan was for I&D, explant and placement of abx spacer. Intra-op this was changed to just and I&D after the facial closure was found to be intact and healthy appearing. At this point my diagnosis is infected seroma. She underwent an extensive irrigation and debridement with multi-layered complex closure and drain placement. Leave CHING drain in place until follow up this sunday with Dr. Sanabria PICC line IV vanco for 4 weeks per troughs WBAT RLE Keep TRAVON in place Time Spent With Patient Time with patient: 15-24 minutes Quality VTE Deep Vein Thrombosis/Pulmonary Embolism Present on Admission: No
[2019-10-20 09:06] LABS: INR 1.4 (0.9-1.3); Prothrombin Time 15.9 SECONDS (10.1-12.7)
--- NOTE | 2019-10-20 10:23 | CM.DPC ---
DCP Cont: Received discharge on patient for today. She will be getting her PICC line placed today for her antibiotics. Updated December at [facility]. She stated that they can roll picker patient at 1300. Updated nurse, Meche, and white board at main nurse's station. Asked Alejandra, medicare biller, to look for orders, and discharge summary. PASSR is not needed, for patient is returning back to [facility]. Added P.T/O.T, as well. P: Patient is to be discharged back to [facility] today at 1300, and will be having PICC line placed prior. Naty Juan RN/Analytical Technician
[2019-10-20] MEDS: CEFTRIAXONE 2 GM/50 ML FROZ.PIGGY IV (10:36)
[2019-10-20 10:46] VITALS: BP 123/72; PULSE 94; RESP 18; TEMP 36.7; O2SAT 98
--- NOTE | 2019-10-20 10:52 | PC.NURSE ---
Addendum entered by Crystal Corona R.N. 10/20/19 13:12: Patient taken by [facility] staff, patient had all her belongings. Report called to [facility]. Original Note: Patient alert, oriented up to wheelchair with physical therapy. GIven 50mg Tramadol and 650mg tylenol for right hip pain 02/05. Patient back to bed for PICC placement.
--- NOTE | 2019-10-20 11:04 | PM.DS.1 ---
History of Present Illness History of Present Illness Date Patient Seen: 10/17/19 Chief complaint: hip surgery cite infected Narrative: Written by Dr. 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 She was discharged after the hematoma was treated in early August, to the local rehab facility [facility]. She has been undergoing dressing changes and physical therapy but then sustained a draining wound/fistula in the last few days. A wound culture done at the facility is growing coag-negative staph. She is now admitted through the emergency department for orthopedic consultation, possible joint washout/revision and antibiotic therapy. The hospitalist service has been consulted to comanage her multiple comorbid medical conditions. She has been relatively stable as far as her atrial fibrillation. There has been no pain, fever, chills, sweating, coughing, urinary symptoms. The white blood count is 8.1 with an INR of 2.1 and a sodium of 133. During her last hospitalization in early September she had quite a bit of bleeding/anemia problems but does not appear to have that flaring currently. The hemoglobin is 12.4. Discharge Providers Provider Date of admission: 10/17/19 13:05 Discharge Date: 10/20/19 Consults: 10/20/19 10:13 Consult to Occupational Therapy Evaluate & Treat Comment: Physician Instructions: Evaluate and treat Consult to Physical Therapy Evaluate & Treat Comment: Physician Instructions: Evaluate and Treat Discharge provider: Saranya Díaz DO Summary Hospital Course Discharge Diagnosis: 1. Acute right hip infected seroma not involving prosthesis, present on admission. Resolving. 2. Coronary artery disease, status post CABG x1 vessel, chronic, present on admission. Stable. 3. Hypertension, chronic, present on admission. Stable. 4. Mechanical aortic valve, chronic, present on admission. Stable. 5. Paroxysmal atrial fibrillation, chronic, present on admission. Stable. 6. Hypothyroidism, chronic condition, present on admission, stable 7. Restless leg syndrome, chronic, present on admission. Stable. 8. Mild hyponatremia, appears chronic, present on admission. Stable. 9. History of cardiomyopathy and CHF. 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 1. Acute right hip infected seroma not involving prosthesis, present on admission. Resolving. -Status post irrigation and debridement on 10/19/[address] Sanabria of orthopedic surgery. Per Orthopedic surgery, hip prosthesis not infected. -Wound culture grew Serratia marcescens and E coli both sensitive to ceftriaxone. -Initial WBC 8.1. No fever. No pain. -Continued vancomycin with dosing per pharmacist. Patient discharged on ceftriaxone 2 g IV daily for 2 weeks. PICC line placed. -Continued weight-bearing as tolerated and physical and occupational therapy evaluation treatment. -Consulted orthopedic surgery, Dr. Sanabria. Continued postoperative, pain, and DVT prophylaxis per Orthopedic surgery. Patient scheduled for outpatient follow-up with Dr. Sanabria on Monday 10/23. 2. Coronary artery disease, status post CABG x1 vessel, chronic, present on admission. Stable. -Patient not having chest pain or dyspnea. -Continue rosuvastatin 40 mg daily at bedtime, niacin 1000 mg twice daily, and ezetimibe 10 mg daily at bedtime. 3. Hypertension, chronic, present on admission. Stable. -Patient was mildly hypotensive perioperatively and held lisinopril. -Continued carvedilol decreased from 25 mg twice daily to 6.25 mg twice daily. Resumed usual dose of carvedilol 25 mg twice daily once blood pressure stabilized 4. Mechanical aortic valve, chronic, present on admission. Stable. -Initially held warfarin and received vitamin K 2.5 mg preoperatively. -Resumed warfarin 5 mg on 10/18 after surgery then 2.5 mg daily thereafter. -Continue to monitor INR closely. Current INR 1.4. 5. Paroxysmal atrial fibrillation, chronic, present on admission. Stable. -Patient currently in sinus rhythm. -Continued carvedilol decreased from 25 mg twice daily to 6.25 mg twice daily. Resumed usual dose of carvedilol 25 mg twice daily once blood pressure stabilized 6. Hypothyroidism, chronic condition, present on admission, stable -TSH normal at 3.93. Continue levothyroxine 125 mcg daily. 7. Restless leg syndrome, chronic, present on admission. Stable. -Continued Pramipexole 0.75 mg daily at bedtime. 8. Mild hyponatremia, appears chronic, present on admission. Stable. -Improved with hydration. 9. History of cardiomyopathy and CHF. -patient had echo 09/15/2019 which showed normal LVEF severe MAC with moderate mitral stenosis, well-functioning aortic valve. I do not have any further information on diagnosis of cardiomyopathy or CHF. She is not on diuretic management and so I do not think she has clinically significant CHF. Exam Vital Signs (past 8 hours): - 10/20/19 06:08 10/20/19 08:00 10/20/19 10:46 Temperature 97.3 F L 98.8 F 98.1 F Pulse Rate 86 90 94 H Respiratory Rate 18 18 18 Blood Pressure 136/73 123/56 L 123/72 Pulse Oximetry 98 99 98 Oxygen Delivery Method Room Air Oxygen Flow Rate 0 Narrative Exam Narrative: General: Elderly morbidly obese female sitting in bedside chair and in no acute distress, well-developed, mildly anxious but otherwise appropriately interactive. HEENT: Normocephalic, atraumatic. External ears without defect. Pupils equal, round, and reactive to light. Anicteric sclera, moist conjunctivae and no lid lag. Neck: Supple with full range of motion. No lymphadenopathy or thyromegaly. Cardiovascular: Regular rate and rhythm with ejection murmur. No rubs or gallops appreciated. Pulmonary: Clear to auscultation bilaterally without crackles, wheezes, or rhonchi. Normal respiratory effort with no use of accessory muscles. Abdomen: Soft, obese, bowel sounds present, nontender, nondistended. No hepatosplenomegaly or masses appreciated. Extremities: No clubbing or cyanosis. Bilateral lower extremity lipedema. Right hip with dressing in place with minimal serosanguineous drainage and no surrounding erythema or edema. Two drains in place with minimal serosanguinous fluid. Skin: Normal temperature, turgor, and texture; no rash, ulcers, or subcutaneous nodules appreciated. Neurological: Cranial nerves grossly intact. Psychiatric: Anxious mood and normal affect. Alert and oriented to person, place, and time. Objective Labs Result Diagrams: 10/18/19 06:02 10/18/19 06:02 Labs: Laboratory Results - last 24 hr 10/20/19 08:48 PT 15.9 H INR 1.4 H Discharge Plan Discharge Plan Patient Disposition: SNF Transfer to: [facility] Discharge orders & Medications Prescriptions: New ceftriaxone in dextrose,iso-os 2 gram/50 mL Piggyback 2 gram IV Q24H Qty: 12 RF: 0 Continued diphenhydramine HCl 25 mg Capsule 25 mg PO BEDTIME PRN (Reason: Seasonal allergies) Qty: 0 RF: 0 acetaminophen [Tylenol Extra Strength] 500 MG tablet 500 mg PO Q8HP PRN (Reason: Pain) Qty: 0 RF: 0 cyclobenzaprine 10 mg Tablet 10 mg PO TID PRN (Reason: Muscle Spasm) RF: 0 carvedilol 25 mg Tablet 25 mg PO BID RF: 0 warfarin 2.5 mg Tablet 5 mg PO SEEINSTR RF: 0 omeprazole 40 mg Capsule,Delayed Release(Dr/Ec) 40 mg PO BEDTIME RF: 0 levothyroxine [Synthroid] 125 mcg Tablet 125 mcg PO SEEINSTR RF: 0 niacin 500 mg Tablet 1,000 mg PO BID RF: 0 pramipexole 0.25 mg Tablet 0.75 mg PO BEDTIME PRN (Reason: RLS) RF: 0 lisinopril 5 mg Tablet 5 mg PO BEDTIME RF: 0 ezetimibe [Zetia] 10 mg Tablet 10 mg PO BEDTIME RF: 0 rosuvastatin [Crestor] 40 mg Tablet 40 mg PO BEDTIME RF: 0 trospium 60 mg Capsule,Extended Release 24hr 60 mg PO BEDTIME RF: 0 Caltrate 600 plus D 600 mg (1,500 mg)-800 unit Tablet,Chewable 1 tab PO BID RF: 0 docusate sodium [DOK] 100 mg Capsule 100 mg PO BID Qty: 40 RF: 0 melatonin 3 mg Tablet 6 mg PO DAILY RF: 0 ascorbic acid (vitamin C) [Vitamin C] 500 mg Tablet 1,000 mg PO DAILY RF: 0 simethicone 80 mg Tablet,Chewable 250 mg PO Q6HR PRN (Reason: Abdominal Discomfort) RF: 0 warfarin 5 mg Tablet 4 mg PO SEEINSTR Qty: 0 RF: 0 tramadol 50 MG tablet 100 mg PO Q8HP PRN (Reason: Pain) Qty: 10 RF: 0 Diet/Activity/Treatments Diet: Low-fat, Low-sodium and Low-cholesterol Activity: Activity as tolerated with forward wheeled walker and physical and occupational therapy Skin/Wound/Dressing Care Dressing: Merlene dressing in place. CHING to stay until Sunday per Dr Sanabria, he will remove it then. Midline placed 10/20/2019 [facility] Reason for rehabilitation: Post-operative therapy Rehab type: Physical therapy and Occupational therapy Discharges patient from system. Discharge Date/Time: 10/20/19 13:13 Quality VTE Deep Vein Thrombosis/Pulmonary Embolism Present on Admission: No
--- NOTE | 2019-10-20 11:10 | OT.IP.EVAL ---
Current Diagnoses Infection and inflammatory reaction due to internal right hip prosthesis, initial encounter (10/17/19) Surgery Performed Operation Date: 10/19/19 09:00 <No data on this case meets the specified criteria> Operation Date: 10/19/19 09:30 Actual Procedures p right hip incision and drainage (Right) - Ayan Sanabria MD Past Medical History (Last Reviewed 10/17/19 @ 17:16 by Ayan Sanabria MD) Atrial fibrillation (Acute) CAD (coronary artery disease) (Acute) Cardiomyopathy (Acute) GERD (gastroesophageal reflux disease) (Acute) Glucose intolerance (Acute) Hearing impaired (Acute) HLD (hyperlipidemia) (Acute) HTN (hypertension) (Acute) Hypothyroidism (Acute) LBBB (left bundle branch block) (Acute) Nonrheumatic aortic (valve) stenosis (Acute) Osteoarthritis (Acute) Osteoporosis (Acute) Panic disorder (Acute) RLS (restless legs syndrome) (Acute) Systolic heart failure (Acute) T12 compression fracture (Acute 06/04/12) Urinary incontinence (Acute) Vertigo (Acute) Surgical History (Last Updated 10/17/19 @ 14:01 by Katherin Regalado MD) H/O: hysterectomy (Acute) Hip joint replacement status (Acute) History of aortic valve replacement (Acute ~2001) History of lumpectomy of right breast (Acute) Hx of bilateral cataract extraction (Acute) Hx of removal of cyst (Acute) Hx of tonsillectomy (Acute) S/P CABG x 1 (Acute ~2001) Occupational Therapy Inpatient Evaluation/Re-Eval M1 PT/OT-IP Prior Functional Status Start: 10/20/19 11:24 Freq: NEEDED Status: Active Protocol: Document 10/20/19 11:24 [facility] (Rec: 10/20/19 11:42 [facility] [id number]) Medical Review Prior Functional Status Medical History Reviewed Yes Communication Independent Mobility and Gait Prior to right hip replacement, pt was using 2 canes. Pt states at [facility] was able to walk in the room on her own with the FWW. Activities of Daily Living and IADL's Prior to right hip surgery pt only needing assist to dry her feet and back after a shower. Pt states at [facility] needing assist for toileting, showering and socks as her ankles are swollen and hard to use socks aid at this time. Social History Household Members spouse,family Living Arrangements Skilled Nurse Facility Number of Stairs To Enter/Railing? One step. Home Environment Tub/Shower Home Equipment Front Wheel Walker,Straight Cane,Raised Toilet Seat w/ Armrests,Tub Transfer Bench, Hand Held Shower,Grab Bars In Shower M2 OT-IP Current Condition Start: 10/20/19 11:24 Freq: Status: Active Protocol: Document 10/20/19 11:24 [facility] (Rec: 10/20/19 11:42 [facility] [id number]) Occupational Therapy Current Condition Current Condition Evaluation Date 10/20/19 Treatment Diagnosis I and D right hip infected seroma with wound dehiscence Diagnosis Onset Date 10/17/19 Post Operative Precautions Posterior Hip Precautions No Hip Flexion > 90 degrees,No Hip Internal Rotation,No Hip Adduction Weight Bearing Status Weight Bearing Status Weight Bear as Tolerated M3 OT- IP Subjective and Pain Start: 10/20/19 11:24 Freq: Status: Active Protocol: Document 10/20/19 11:24 [facility] (Rec: 10/20/19 11:42 [facility] [id number]) OT- Subjective Occupational Therapy Visit Type Type Initial Evaluation Visit Start Time 10:38 Visit Stop Time 11:10 Total Visit Minutes 32 Occupational Therapy Visit Comments Patient Comments Pt agreeable to get up and transfer to to see if she will be able to use the wc to get back to [facility] this afternoon. Pt also present during OT eval. Patient/Caregiver Goals To go home. OT Pain Assessment Pain When Pain Assessed At Rest Pain Present Pain Present Pain Reported Location right hip Intensity 7 M4 OT- IP ADL's Start: 10/20/19 11:24 Freq: Status: Active Protocol: Document 10/20/19 11:24 [facility] (Rec: 10/20/19 11:42 [facility] [id number]) OT [id number] Comments OT Self-Feeding Comments Pt able to drink from water bottle on her own. OT ADL-Grooming General Evaluation Grooming Ability Independent Areas Needing Assistance Retrieving/Set-up of Grooming Items OT ADL-Dressing General Eval Lower Body Dressing Ability Maximum Assistance Areas Needing Assistance Socks OT ADL-Toileting Comments OT Toileting Comments Pt is wearing a brief , but states not having to use the toilet. OT ADL-Bathing Comments OT Bathing Comments Per [employer] SAL[employer] MANAGER, sponge bath earlier. M5 OT- IP IADL's Start: 10/20/19 11:24 Freq: Status: Active Protocol: Document 10/20/19 11:24 [facility] (Rec: 10/20/19 11:42 [facility] [id number]) OT-Instrumental Activities of Daily Living Medication Management Medication Management No Deficits Identified Money Management Money Management No Deficits Identified M6 OT- IP Functional Cognition Start: 10/20/19 11:24 Freq: Status: Active Protocol: Document 10/20/19 11:24 [facility] (Rec: 10/20/19 11:42 [facility] [id number]) Cognitive Factors Limiting Selfcare Function Cognitive Ability Level of Alertness Alert Patient Orientation Name,Age,Birthday,Month,Date, Year,Day of Week,Place, Situation Attention Span Ability Capable of Focused Attention, Capable of Sustained Attention Ability to Follow Commands Able to Follow Multi-Step Commands Memory Description No Deficits Noted Safety Awareness No Deficits Noted Cognitive Comments Cognitive Assessment Comments No deficits noted and appears at baseline. OT- Vision and Hearing OT- Hearing Assessment OT- Hearing Assessment Use of Hearing Aids OT- Vision Assessment Visual Acuity Glasses For Reading M7 OT- IP Mobility and Balance Start: 10/20/19 11:24 Freq: Status: Active Protocol: Document 10/20/19 11:24 [facility] (Rec: 10/20/19 11:42 [facility] [id number]) OT- Bed Mobility Assessment Supine to Sit Supine to Sit Assist Minimal Assistance Sit to Supine Sit to Supine Assist Minimal Assistance OT-Transfer Assessment Sit to and From Stand Sit to and from Stand Contact Guard Assistance Transfers Transfer Ability Contact Guard Assistance Technique Transfer Destination Bed,Wheelchair Transfer Technique Stand Step Pivot Devices Transfer Assistive Devices Gait Belt,Front Wheeled Walker Comments Mobility Comments Pt mainly needing assist to help move RLE during bed mobility needs- MING. Otherwsie CGA to stand and for transfer with FWW. OT- Balance Assessment Sitting Balance and Reactions Static Sitting Balance Ability Normal Dynamic Sitting Balance Ability Good Standing Balance and Reactions Static Standing Balance Ability Good M8 OT- IP Objective Assessments Start: 10/20/19 11:24 Freq: Status: Active Protocol: Document 10/20/19 11:24 [facility] (Rec: 10/20/19 11:42 [facility] [id number]) OT Gross Range of Motion Upper Extremity Range of Motion Assessment Within Functional Limits OT Strength Upper Extremity Strength Assessment Within Functional Limits M9 OT- IP Assessment and Plan Start: 10/20/19 11:24 Freq: Status: Active Protocol: Document 10/20/19 11:24 [facility] (Rec: 10/20/19 11:42 [facility] [id number]) OT Summary Assessment and Plan Potential Rehabilitation Potential Excellent Analytic Complexity at Evaluation Low Summary OT Impairments Functional Mobility,Dressing, Toileting,Bathing,Toilet Transfers,Shower Transfers, Activity Tolerance Progress Towards Goals Progressing Toward Goals Assessment Summary Pt low complexity and main barrier is pain as just having I and D of right hip and looking to go back to [facility] today. Pt will benefit from continued OT to work towards prior level of being mod I with most ADl needs and to assess for needs of equipment , especially for possible need of toilet aid for hygiene needs. Goals Grooming Goal Independent Dressing Goal Independent Toileting Goal Independent Bathing Goal Minimal Assistance Toilet Transfer Goal Independent Shower Transfer Goal Standby Assistance Patient/Caregiver Education Goal Demonstrate Post-Op Precautions,Caregiver Independent Assisting Patient Days to Meet Goals 10 Frequency of Treatment Frequency Of Treatment Once a Day Treatment Plan OT Treatment Plan ADL Training,Functional Mobility,Patient/Family Education,Discharge Planning Discharge Recommendations OT Discharge Recommendations SNF Rehab Transportation Needs at Discharge Wheelchair/Cabulance
--- NOTE | 2019-10-20 11:30 | PT.IIE ---
Current Diagnoses Infection and inflammatory reaction due to internal right hip prosthesis, initial encounter (10/17/19) Surgery Performed Operation Date: 10/19/19 09:00 <No data on this case meets the specified criteria> Operation Date: 10/19/19 09:30 Actual Procedures p right hip incision and drainage (Right) - Ayan Sanabria MD Surgical History (Last Updated 10/17/19 @ 14:01 by Katherin Regalado MD) H/O: hysterectomy (Acute) Hip joint replacement status (Acute) History of aortic valve replacement (Acute ~2001) History of lumpectomy of right breast (Acute) Hx of bilateral cataract extraction (Acute) Hx of removal of cyst (Acute) Hx of tonsillectomy (Acute) S/P CABG x 1 (Acute ~2001) Medical History (Last Reviewed 10/17/19 @ 17:16 by Ayan Sanabria MD) Atrial fibrillation (Acute) CAD (coronary artery disease) (Acute) Cardiomyopathy (Acute) GERD (gastroesophageal reflux disease) (Acute) Glucose intolerance (Acute) Hearing impaired (Acute) HLD (hyperlipidemia) (Acute) HTN (hypertension) (Acute) Hypothyroidism (Acute) LBBB (left bundle branch block) (Acute) Nonrheumatic aortic (valve) stenosis (Acute) Osteoarthritis (Acute) Osteoporosis (Acute) Panic disorder (Acute) RLS (restless legs syndrome) (Acute) Systolic heart failure (Acute) T12 compression fracture (Acute 06/04/12) Urinary incontinence (Acute) Vertigo (Acute) Physical Therapy Inpatient Evaluation/Re-Eval M1 PT/OT-IP Prior Functional Status Start: 10/20/19 11:24 Freq: NEEDED Status: Active Protocol: Document 10/20/19 11:24 [facility] (Rec: 10/20/19 11:42 [facility] [id number]) Medical Review Prior Functional Status Medical History Reviewed Yes Communication Independent Mobility and Gait Prior to right hip replcement, pt was using 2 canes. Pt states at [facility] was able to walk in the room on her own with the FWW. Activities of Daily Living and IADL's Prior to right hip surgery pt only needing assist to dry her feet and back after a shower. Pt states at [facility] needing assist for toileting, showering and socks as her ankles are very swollen hard to use socks aid at this time. Social History Household Members spouse,family Living Arrangements Skilled Nurse Facility Number of Stairs To Enter/Railing? One step. Home Environment Tub/Shower Home Equipment Front Wheel Walker,Straight Cane,Raised Toilet Seat w/ Armrests,Tub Transfer Bench, Hand Held Shower,Grab Bars In Shower M2 PT-IP Current Condition Start: 10/20/19 10:28 Freq: NEEDED Status: Active Protocol: Document 10/20/19 11:15 AW (Rec: 10/20/19 12:41 AW [id number]) Physical Therapy Current Condition Current Condition Evaluation Date 10/20/19 Treatment Diagnosis R hip periprosthetic infection ; impaired mobility Precautions Posterior Hip Precautions No Hip Flexion > 90 degrees,No Hip Internal Rotation,No Hip Adduction Weight Bearing Status Weight Bearing Status Weight Bear as Tolerated M3 PT-IP Subjective Start: 10/20/19 10:28 Freq: NEEDED Status: Active Protocol: Document 10/20/19 11:15 AW (Rec: 10/20/19 12:41 AW [id number]) Subjective Physical Therapy Visit Type Type Initial Evaluation Visit Start Time 10:39 Visit Stop Time 11:07 Total Visit Minutes 28 Notes Co-treat with JEREL Weathers Number of [employer] Visits 0 Physical Therapy Visit Comments Patient Comments I'm doing so much better than last time I saw you Patient Goals Back to SNF for continued rehab before home. Therapy Pain Assessment Pain When Pain Assessed During Mobility Pain Present Pain Present Pain Reported M4 PT-IP Mobility and Gait Start: 10/20/19 10:28 Freq: NEEDED Status: Active Protocol: Document 10/20/19 11:15 AW (Rec: 10/20/19 12:41 AW [id number]) PT-Bed Mobility Assessment Supine to Sit Supine to Sit Minimal Assistance,1 Person Assistance,Head of Bed Elevated,Bedrails Sit to Supine Sit to Supine Minimal Assistance,1 Person Assistance,Head of Bed Elevated,Bedrails Scooting Scooting to Edge of Bed Standby Assistance Scooting Up and Down in Bed Standby Assistance PT-Transfer Assessment Sit to and From Stand Sit to and from Stand Contact Guard Assistance Equipment Transfer Assistive Device Gait Belt,Front Wheeled Walker Orthotic/Prosthetic Devices or Brace: No Transfers Transfer Destination Bed,Wheelchair Transfer Technique pt ambulated short distance with fww Transfer Ability Level of Assist Contact Guard Assistance Comments Mobility Comments Pt was sitting up in bed upon PT arrival. With HOB elevated, she completed supine to sit min A x 1 with use of bed rails and [employer] to pull up to sitting. She could sit EOB with UE support. She completed sit to stand CGA and ambulated with FWW CGA 5 feet to the wheelchair where she was able to transfer to and from [facility]. She then ambulated with FWW back to the bed and completed sit to supine min A x 1 to elevate her operative leg. She was positioned in the bed with call light and all needs within reach, bed alarm armed for safety. Gait Assessment Gait Gait Assistance Required: Contact Guard Assist Distance (Feet) 5 Able to Maintain Weight Bearing Status Yes During Gait Assistive Devices Assistive Device Gait Belt,Front Wheeled Walker Orthotic/Prosthetic Devices or Brace: No Gait Deviations General Gait Pattern Antalgic,Decreased Stride Length,Decreased Feet Clearance,Flexed Trunk,Step-to Gait Factors Limiting Gait Function Factors Limiting Gait Function Decreased Activity Tolerance, Decreased Strength,Pain,Poor Balance Comments Gait Comments Pt transferred and ambulated with good attention to posterior hip precautions. Stair Climbing Assessment Comments Stair Climbing Comments Not assessed. PT-Balance Assessment Sitting Balance and Reactions Static Sitting Balance Ability Good Dynamic Sitting Balance Ability Good Standing Balance and Reactions Static Standing Balance Ability Fair Dynamic Standing Balance Ability Fair Device Used FWW M5 PT-IP Objective Assessments Start: 10/20/19 10:28 Freq: NEEDED Status: Active Protocol: Document 10/20/19 11:15 AW (Rec: 10/20/19 12:41 AW [id number]) Orientation Orientation/Cognition Level of Alertness Alert Orientation Name,Day of Week,Place, Situation Language Function Ability No Deficits Noted,Hard of Hearing Safety Awareness Understands Safety Issues Memory Description No Deficits Noted Gross Range of Motion Upper Extremity ROM Assessment Within Functional Limits Lower Extremity ROM Assessment Right Impaired Strength Lower Extremity Strength Assessment Bilaterally Impaired Hip 3/5 Knee 4-/5 Ankle 4-/5 Coordination Assessment Gross Coordination Gross Coordination WNL Sensation Assessment Sensation Gross Sensation WNL Muscle Tone Muscle Tone WNL Yes M6 PT-IP Treatment Start: 10/20/19 10:28 Freq: NEEDED Status: Active Protocol: Document 10/20/19 11:15 AW (Rec: 10/20/19 12:41 AW [id number]) Physical Therapy Treatment Education Education Provided Precautions,Weight Bearing Status,Safety Other Treatments Other Treatment Performed Pt able to recall all posterior hip precautions without prompting. M7 PT-IP Assessment and Plan Start: 10/20/19 10:28 Freq: NEEDED Status: Active Protocol: Document 10/20/19 11:15 AW (Rec: 10/20/19 12:41 AW [id number]) PT Summary Assessment and Plan Potential Rehabilitation Potential Good Status of Condition at Evaluation Evolving Summary Impairments Pain,ROM,Strength,Balance,Bed Mobility,Transfers,Gait, Activity Tolerance Assessment Summary Glenys is an 79 yo woman seen on POD3 following I&D for right hip periprosthetic infected seroma. She is well- known to this facility and this therapist, having had a protracted length of stay following her R PRIETO last month . At recent baseline, she has been able to walk around her room at [facility] with FWW. On evaluation, she required min assist x 1 for bed mobility and CGA for transfers and gait with FWW. She is scheduled to return to SNF setting this afternoon. She will be able to tolerate wheelchair transport. Frequency of Treatment Frequency Of Treatment Discharge Recommendations To Nursing Amount of Assist Needed 1 Person Assist Discharge Recommendations PT Discharge Recommendations SNF Rehab Transportation Needs at Discharge Wheelchair/Cabulance
== END 2019-10-20 13:13 | DRG 857 ==
LOC: ED 12:55 → AC 13:05
PROVIDERS: Internal Medicine; Orthopaedic Surgery Adult Reconstructive Orthopaedic Surgery; Admitting Provider Family Medicine; Emergency Provider Emergency Medicine; Family Provider Family Medicine; Referring Provider Emergency Medicine; Visit Provider Family Medicine
PROC: 0JBL0ZZ Excision of Right Upper Leg Subcutaneous Tissue and Fascia, Open Approach (ICD-10-PCS; principal; 2019-10-19 09:30)
DX: T81.41XA Infection following a procedure, superficial incisional surgical site, initial encounter (principal); T81.31XA Disruption of external operation (surgical) wound, not elsewhere classified, initial encounter; L76.34 Postprocedural seroma of skin and subcutaneous tissue following other procedure; I48.0 Paroxysmal atrial fibrillation; I25.10 Atherosclerotic heart disease of native coronary artery without angina pectoris; K21.9 Gastro-esophageal reflux disease without esophagitis; E78.5 Hyperlipidemia, unspecified; I10 Essential (primary) hypertension; E03.9 Hypothyroidism, unspecified; I44.7 Left bundle-branch block, unspecified; I35.0 Nonrheumatic aortic (valve) stenosis; G25.81 Restless legs syndrome; Z79.01 Long term (current) use of anticoagulants; Z95.2 Presence of prosthetic heart valve; Z95.1 Presence of aortocoronary bypass graft
CPT/HCPCS: 36415; 36569; 80048; 80053; 80202; 83605; 85025; 85610; 86850; 86900; 86901; 87040; 87070; 87075; 87077; 87176; 87186; 87205; 94762; 97161; 97165; 97530; 99284; J0131; J0696; J1170; J2250; J2405; J2704; J3010

== ENCOUNTER → 2019-10-31 18:08 | Outpatient (ROUT) | payer SELFPAY ==
[2019-10-17 13:46] VITALS: BMI 41.4
[2019-10-31 18:23] LABS: Add Manual Diff / Slide Review NO; Basophils Absolute Auto 0 /uL (0-100); Basophils Percent Auto 0.8 % (0-2); Eosinophils Absolute Auto 400 /uL (0-450); Eosinophils Percent Auto 6.2 % (2-4); Hematocrit 32.1 % (36-46); Hemoglobin 10.9 g/dL (12.0-16.0); Lymphocytes Absolute Auto 1300 /uL (1100-4500); Lymphocytes Percent Auto 22.4 % (25-40); Mean Corpuscular Hemoglobin 32.2 PG (26-34); Mean Corpuscular Volume 94.7 fL (80-100); Monocytes Absolute Auto 700 /uL (0-900); Monocytes Percent Auto 11.5 % (3-14); Neutrophils Absolute Auto 3400 /uL (1500-7000); Neutrophils Percent Auto 59.1 % (50-75); Platelet Count 363 X10^3/uL (150-400); Red Blood Cell Count 3.39 X10^6/uL (4.0-5.2); Red Cell Distribution Width 16.6 % (11.6-14.8); White Blood Cell Count 5.8 X10^3/uL (4.5-11.0)
== END ==
PROVIDERS: Family Provider Family Medicine; Visit Provider Internal Medicine
DX: I11.0 Hypertensive heart disease with heart failure (principal)
CPT/HCPCS: 85025

== ENCOUNTER → 2019-11-03 14:31 | Outpatient (ROUT) | payer SELFPAY ==
[2019-10-17 13:46] VITALS: BMI 41.4
[2019-11-03 14:52] LABS: INR 3.9 (0.9-1.3)
== END ==
PROVIDERS: Family Provider Family Medicine; Visit Provider Nurse Practitioner
DX: Z79.899 Other long term (current) drug therapy (principal); I48.91 Unspecified atrial fibrillation
CPT/HCPCS: 85610

== ENCOUNTER 2020-05-06 18:37 | Observation (INO) | payer MEDICARE, OTHER, SELFPAY ==
[2019-10-17 13:46] VITALS: BMI 41.4
[2020-05-06] VITALS (7 sets, daily range): BP systolic 143–183; BP diastolic 59–79; PULSE 61–87; RESP 13–31; TEMP 36.4–36.8; O2SAT 96–100; BMI 41.4; BMI 39.0
--- NOTE | 2020-05-06 | DI.CT.S_ITS ---
PROCEDURE: CT STROKE INDICATIONS: STROKE SYMPTOMS TECHNIQUE: Noncontrast 4.5 mm thick angled axial sections acquired from the foramen magnum to the vertex, with coronal reformats. For radiation dose reduction, the following was used: automated exposure control, adjustment of mA and/or kV according to patient size. COMPARISON: None. FINDINGS: Image quality: Excellent. CSF spaces: Basal cisterns are patent. No extra-axial fluid collections. The ventricles are symmetric in size and shape. Brain: No intracranial bleeds or masses. There is cerebral volume loss for age, with resultant ventricular and sulcal prominence. There are periventricular and deep white matter chronic small vessel ischemic changes. There is an ill-defined area in the right frontal periventricular white matter measuring approximately 2.1 cm of more focal hypodensity. More caudally, there is a well-defined area of infarct involving the anterior limb of the right internal capsule. There is intracranial internal carotid artery atherosclerosis. Skull and face: Calvarium and visualized facial bones appear intact, without suspicious lesions. Sinuses: Visualized sinuses and mastoids are clear. IMPRESSION: 1. No acute hemorrhage. 2. 2.1 cm area in the right frontal periventricular white matter of ill-defined hypodensity, subacute or chronic ischemic changes possible. 3. Well-defined, remote infarct in the right anterior limb internal capsule. 4. Findings called to Dr. Montana in the emergency room at 19:14 hours. This study fulfills neurological imaging criteria for inclusion or exclusion of acute stroke therapies based on available published neurological guidelines. Dictated by: Vicky Carroll M.D. on 05/06/2020 at 19:11 Approved by: Vicky Carroll M.D. on 05/06/2020 at 19:16
--- NOTE | 2020-05-06 19:01 | DI.CT.S_ITS ---
PROCEDURE: CT ANGIO HEAD AND NECK INDICATIONS: Confusion TECHNIQUE: Pre-contrast 4.5 mm thick sections acquired from the foramen magnum to the vertex. After the administration of intravenous contrast, 1 mm thick sections acquired from the aortic arch through the [place] of [place]. Post-contrast 4.5 mm thick sections then re-acquired from the foramen magnum to the vertex. 3-dimensional [id number] (MIP) and/or volume rendering reformats were acquired of the central intracranial vasculature and neck separately. COMPARISON: None. FINDINGS: Image quality: Excellent. BRAIN: CSF spaces: Ventricles are normal in size and shape. Basal cisterns are patent. No extra-axial fluid collections. Brain: No midline shift. No intracranial bleeds or masses. Stone-white matter interface appears intact. There is a chronic appearing infarct in the right frontal periventricular region, a portion of which demonstrates well-defined margins and involves the anterior limb of the internal capsule. Periventricular gliosis results in mild focal ex vacuo dilatation of the right lateral ventricle. Skull and face: Calvarium and facial bones appear intact, without suspicious lesions. Orbits appear normal. Sinuses: Sinuses and mastoids are clear. HEAD CT ANGIOGRAPHY: Anterior circulation: Intracranial internal carotid arteries are normal in size and flow. Heavy atherosclerotic calcification is present. The flow within the paired anterior cerebral arteries is normal and symmetric. The flow within the middle cerebral arteries is normal and symmetric. The anterior communicating artery is seen. No aneurysms are seen. Posterior circulation: Visualized portions of the vertebral arteries demonstrate normal caliber, and join to form a normal appearing basilar artery. Flow within the posterior cerebral arteries is normal and symmetric. No aneurysms are seen. NECK CT ANGIOGRAPHY: Carotid system: The great vessels demonstrate a conventional anatomy as they arise from the aortic arch. The origins of the common carotid arteries appear patent. The common carotid arteries demonstrate normal caliber and courses. The bifurcation regions demonstrate moderate calcification at the ICA origins bilaterally, right slightly worse than left causing about a 50% stenosis on the right. The internal carotid arteries demonstrate normal calibers and tortuous distal courses. Posterior circulation: The origins of the vertebral arteries both appear widely patent. The more superior extracranial portions of both vertebral arteries also demonstrate normal courses and calibers. They join to form a normal appearing basilar artery. Soft tissues: Visualized neck soft tissues demonstrate no suspicious abnormalities. Bones: There is mild levoscoliosis of the cervical spine and slight accentuation of lordosis. Partially imaged median sternotomy changes are present. Bridging osteophytosis throughout the upper thoracic spine. No suspicious bony lesions. Visualized cervical spine appears normally aligned. IMPRESSION: 1. No suspicious intracranial enhancement. 2. No evidence of acute intracranial arterial occlusion, severe stenosis, or intracranial aneurysm. 3. Moderate ICA origin calcification bilaterally, right greater than left with a 50% stenosis. Confirmation with carotid ultrasound could be performed. 4. 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 Any quantitative measurements of stenosis were performed using NASCET criteria. Dictated by: Vicky Carroll M.D. on 05/06/2020 at 19:40 Approved by: Vicky Carroll M.D. on 05/06/2020 at 19:54
--- NOTE | 2020-05-06 19:03 | ED.NEUROSD ---
HPI - Neuro Symptoms/Deficit General Chief Complaint: Neuro Symptoms/Deficit Stated Complaint: patient states possible mini stroke Time Seen by Provider: 05/06/20 18:51 Source: patient and family Mode of arrival: Wheelchair Limitations: no limitations History of Present Illness HPI Narrative: Onset 4:30 p.m. tonight. Was confused with expressive dysphagia. No prior history of this. No history of stroke. Patient is on warfarin for atrial fibrillation as well as mechanical heart valve. Symptoms have completely resolved. Patient is awake alert oriented x3. No complaint at this time. No headache no palpitations or chest pain. No numbness tingling or weakness. No slurred speech or facial droop.. Please see medical history below from previous discharge summary Discharge provider: Jaki Arrieta PA-C Summary Hospital Course Discharge Diagnosis: s/p right total hip arthroplasty Hospital Course: Patient is an 79-year-old female with severe right hip DJD, coronary artery disease status post CABG x1 vessel, cardiomyopathy, left bundle branch block, aortic stenosis status post mechanical aortic valve on warfarin, HLD, hypothyroidism, OA, osteoporosis, RLS, and morbid obesity. She had pain with activities and at rest, limited ambulation and activity tolerance, difficulties with ADLs, and failure of conservative treatment. The nature of her condition, treatment options, risks and benefits, were discussed and she elected to proceed with total hip arthroplasty and gave informed consent. After informed consent was obtained she was taken to the operating room where she underwent a right total hip arthroplasty with Dr. Randhawa. POD# 1 she was restarted on warfarin and Lovenox for DVT prophylaxis. Overnight drainage from the incision increased requiring dressing changes. She was transitioned from a TRAVON to bulky dressing with dressing changes per shift at this point. On POD# 2 medicine team was consulted due to new onset AFIB with RVR. After consulting with her cardiology group at [facility] in [place] patient was cardioverted. It was also noted that she was symptomatically hypotensive with Hgb 10.5 -> 7.9. She was transfused at that time and went on to receive 4 additional units of PRBC over the next week. She continued to drain from her incision requiring multiple dressing changes daily. INR continued to trend up until on POD# 6 this was 3.7 with anticoagulation held. She returned to the OR for I&D and large hematoma was evacuated. She continued to require cardiac management over the next 6 days and remained on heparin drip until INR stabilized. On POD# 6 s/p incision and drainage, irrigation debridement right hip hematoma and POD#16 s/p right total hip arthroplasty she was determined to be medically stable for discharge to SNF. On Anticoagulants: Yes (Warfrin) Related Data Home Medications Medication Instructions Recorded Confirmed diphenhydramine HCl 25 mg PO BEDTIME PRN #0 11/19/12 05/06/20 acetaminophen [Tylenol Extra 500 mg PO Q8HP PRN #0 06/18/12 05/06/20 Strength] Caltrate 600 plus D 1 tab PO BID 09/03/19 05/06/20 cyclobenzaprine 10 mg PO Q6-8H PRN 09/03/19 05/06/20 ezetimibe [Zetia] 10 mg PO BEDTIME 09/03/19 05/06/20 levothyroxine [Synthroid] 125 mcg PO SEEINSTR 09/03/19 05/06/20 niacin 1,000 mg PO BID 09/03/19 05/06/20 omeprazole 40 mg PO BEDTIME 09/03/19 05/06/20 pramipexole 0.75 mg PO BEDTIME PRN 09/03/19 05/06/20 rosuvastatin [Crestor] 40 mg PO BEDTIME 09/03/19 05/06/20 trospium 50 mg PO BEDTIME 09/03/19 05/06/20 warfarin 2.5 mg PO DAILY 09/03/19 05/06/20 ascorbic acid (vitamin C) [Vitamin 1,000 mg PO DAILY 10/17/19 05/06/20 C] melatonin 6 mg PO PRN PRN 10/17/19 05/06/20 amiodarone 200 mg PO DAILY 05/06/20 05/06/20 aspirin [Aspirin Low Dose] 81 mg PO DAILY 05/06/20 05/06/20 furosemide 05/06/20 metoprolol tartrate See Rx Instructions .ROUTE .COMPLEX 05/06/20 05/06/20 vitamin B complex [B-Complex] 1 tab PO DAILY 05/06/20 05/06/20 vitamin E 400 unit PO DAILY 05/06/20 05/06/20 Previous Rx's Medication Instructions Recorded docusate sodium [DOK] 100 mg PO BID #40 cap 09/29/19 tramadol 100 mg PO Q8HP PRN #10 tab 10/20/19 Allergies Allergy/AdvReac Type Severity Reaction Status Date / Time latex Allergy Intermediate ITCHING Verified 10/17/19 13:47 Review of Systems Review of Systems Narrative: GENERAL: Denies chills, fatigue, malaise, fever, sweats. HEENT: Denies sinus pain, ear pain, sore throat, difficulty swallowing, dizziness. RESPIRATORY: Denies dyspnea, cough, wheezing, hemoptysis, sputum. CARDIOVASCULAR: Denies chest pain, palpitations, orthopnea, edema, GASTROINTESTINAL: Denies nausea, vomiting, abdominal pain, diarrhea, constipation, melena. : Denies dysuria, frequency, incontinence, hematuria, urinary retention. MUSCULOSKELETAL: denies weakness, joint pain, or bony pain SKIN: Denies rash, skin lesions NEUROLOGIC: Denies weakness, headache, numbness, change in speech, complains of confusion, denies seizures, incoordination. PSYCHIATRIC: No concerning psychosocial issues. ROS Unobtainable: All systems reviewed & are unremarkable except as noted in HPI and below Patient History Medical History Atrial fibrillation (Acute) CAD (coronary artery disease) (Acute) Cardiomyopathy (Acute) GERD (gastroesophageal reflux disease) (Acute) Glucose intolerance (Acute) Hearing impaired (Acute) HLD (hyperlipidemia) (Acute) HTN (hypertension) (Acute) Hypothyroidism (Acute) LBBB (left bundle branch block) (Acute) Nonrheumatic aortic (valve) stenosis (Acute) Osteoarthritis (Acute) Osteoporosis (Acute) Panic disorder (Acute) RLS (restless legs syndrome) (Acute) Systolic heart failure (Acute) T12 compression fracture (Acute 06/04/12) Urinary incontinence (Acute) Vertigo (Acute) Surgical History H/O: hysterectomy (Acute) Hip joint replacement status (Acute) History of aortic valve replacement (Acute ~2001) History of lumpectomy of right breast (Acute) Hx of bilateral cataract extraction (Acute) Hx of removal of cyst (Acute) Hx of tonsillectomy (Acute) S/P CABG x 1 (Acute ~2001) Social History household members: spouse and family Smoking Status: Never smoker alcohol intake: never Smoking Status: Never smoker alcohol intake frequency: holidays/special occasions only Substance Use Type: does not use Exam Narrative Exam Narrative: GENERAL: patient appears stated age. Well-nourished, well-developed patient, in no distress, not toxic HEAD: Atraumatic. Normocephalic. EYES: Pupils equal round and reactive. Extraocular motions intact. No scleral icterus. No injection or drainage. ENT: Nose without bleeding, purulent drainage. Throat without erythema, tonsillar hypertrophy or exudate. Airway patent. NECK: Trachea midline. Non tender CARDIOVASCULAR: Regular rate and rhythm without murmurs, gallops, or rubs. RESPIRATORY: Clear to auscultation. Breath sounds equal bilaterally. No wheezes, rales, or rhonchi. GASTROINTESTINAL: Abdomen soft, non-tender, nondistended. EXTREMITIES: No edema or joint tenderness. BACK: Nontender without deformity or crepitance. No flank tenderness. NEURO: AOx4. Clear speech no facial droop light touch intact to bilateral face hands and legs. 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 Negative pronator drift. Finger-nose intact bilaterally. Able to bring both legs off the bed and hold it for 10 seconds individually. SKIN: No rash or erythema of visible areas PSYCH: Not anxious, is cooperative Initial Vital Signs Initial Vital Signs: Vital Signs Temperature 98.2 F 05/06/20 18:51 Pulse Rate 87 05/06/20 18:51 Respiratory Rate 20 05/06/20 18:51 Blood Pressure 183/79 H 05/06/20 18:51 Pulse Oximetry 96 05/06/20 18:51 Scores NIH Stroke Scale Level of Conciousness: Alert, keenly responsive Ask month/age: Answers both questions correctly. Open/close eyes, close hand: Performs both tasks correctly Best gaze horizontal: Normal Visual holder: No visual loss Facial palsy: Normal symetrical movement Left arm drift: No drift for full 10 sec Right arm drift: No drift for full 10 sec Left leg drift: No drift for full 5 sec Right leg drift: No drift for full 5 sec Limb ataxia: Absent Sensory on face/arms/legs: Normal, no sensory loss Best language: No aphasia, normal Dysarthria: Normal Extinction or inattention: No abnormality Total NIH Stroke scale score: 0 Course Course Course Narrative: Symptoms completely resolved. Patient is on warfarin this time. Is therapeutic. Stroke physician Dr. Martinez, no asa at this time Decision to Admit Date: 05/06/20 Decision to Admit time: 20:35 Orders Ordered: ED Orders 05/06/20 19:00 Complete Blood Count AUTO DIFF Stat Comprehensive Metabolic Panel Stat Magnesium Routine Partial Thromboplastin Time Stat Prothrombin Time INR Stat Troponin & CK Cardiac Panel Stat 05/06/20 19:01 CT angio head and neck Stat 05/06/20 19:02 Urine Drug Screen, Rapid Stat EKG-12 Lead Stat 05/06/20 20:00 COVID19 -ED/INPAT/OR/L&D Stat 05/06/20 20:48 Consult to Dietitian, Adult Routine Consult to Occupational Therapy Evaluate & Treat Consult to Physical Therapy Evaluate & Treat 05/07/20 05:00 Basic Metabolic Panel Routine Lipid Panel Routine Prothrombin Time INR Routine Acetaminophen (Tylenol) 650 mg PO Q6HR PRN PRN Reason: Fever/Mild Pain (1-3) Al Hydrox/Mg Hydrox/Simethicone (Maalox Plus) 30 ml PO Q6HR PRN PRN Reason: Dyspepsia Amiodarone HCl (Cordarone) 200 mg PO DAILY MARCELLUS Bisacodyl (Dulcolax) 10 mg PO DAILY PRN PRN Reason: Constipation Calcium Carbonate (Tums) 1,000 mg PO Q4HR PRN PRN Reason: Dyspepsia Cyclobenzaprine HCl (Flexeril) 10 mg PO Q6H PRN PRN Reason: Muscle Spasm Docusate Sodium (Colace) 100 mg PO BID PRN PRN Reason: Constipation Ezetimibe (Zetia) 10 mg PO BEDTIME [facility] Last Admin: 05/07/20 00:07 Dose: Not Given Documented by: ROBERTO Levothyroxine Sodium (Synthroid) 125 mcg PO SEEINSTR [facility] Melatonin (Melatonin) 6 mg PO PRN PRN PRN Reason: Sleep Metoprolol Tartrate (Lopressor) 50 mg PO DAILY [facility] Metoprolol Tartrate (Lopressor) 25 mg PO BEDTIME [facility] Last Admin: 05/07/20 00:06 Dose: 25 mg Documented by: ROBERTO Naloxone HCl (Narcan) 0.2 mg IV Q2MIN PRN PRN Reason: Opiate Reversal Niacin (Niacin) 1,000 mg PO BID [facility] Non-Formulary Medication (Trospium) 50 mg PO BEDTIME [facility] Ondansetron HCl (Zofran) 4 mg IV Q8HR PRN PRN Reason: Nausea And Vomiting Pramipexole Dihydrochloride (Mirapex) 0.75 mg PO BEDTIME PRN PRN Reason: RLS Last Admin: 05/07/20 00:13 Dose: 0.75 mg Documented by: ROBERTO Rosuvastatin Calcium (Crestor) 40 mg PO BEDTIME [facility] Last Admin: 05/07/20 00:06 Dose: 40 mg Documented by: ROBERTO Warfarin Sodium (Coumadin) 2.5 mg PO QPM [facility] Discontinued Medications Docusate Sodium (Colace) 100 mg PO BID [facility] Last Admin: 05/06/20 23:58 Dose: Not Given Documented by: ROBERTO Sodium Chloride (Normal Saline 0.9%) 500 mls @ 1,000 mls/hr IV BOLUS ONE Stop: 05/06/20 19:31 Last Infusion: 05/06/20 20:53 Dose: 0 mls/hr Documented by: Admin: 05/06/20 19:57 Dose: 1,000 mls/hr Documented by: MICHELLE Influenza Virus Vaccine (Flu Hd Vaccine) 0.7 ml IM .ONCE ONE Stop: 05/06/20 21:37 Warfarin Sodium (Coumadin) 2.5 mg PO NOW ONE Stop: 05/07/20 00:39 Reevaluation(s) Reevaluation #1: Remains asymptomatic this time. No complaints. Time: 20:35 Consultations Consultation #1: Stroke provider reviewed case dr martinez, admit here. No MRI as patient has mechanical heart valve. No aspirin as patient is on warfarin. Observe overnight and echocardiogram in the morning Time: 20:35 Consultation #2: Spoke with [facility] hospitalist, will admit Time: 20:35 Vital Signs Vital signs: Vital Signs - 8 hr 05/06/20 18:51 05/06/20 19:43 05/06/20 20:00 Temperature 98.2 F Pulse Rate 87 61 63 Respiratory Rate 20 13 17 Blood Pressure 183/79 H 150/66 H Pulse Oximetry 96 100 99 05/06/20 20:30 05/06/20 20:34 Temperature Pulse Rate 74 63 Respiratory Rate 31 H Blood Pressure 159/67 H Pulse Oximetry 97 100 MDM - Neuro Symptoms/Deficit Differential Diagnosis Differential diagnosis: Likely cerebrovascular accident and transient cerebral ischemia Medical Records Attestation: I reviewed the patient's medical records. Lab Data Attestation: I reviewed the patient's lab results. Result diagrams: 05/06/20 19:00 05/06/20 19:00 Labs: Lab Results 05/06/20 05/06/20 05/06/20 Range/Units 19:00 19:00 19:00 WBC 4.5 (4.5-11.0) X10^3/uL RBC 4.02 (4.0-5.2) X10^6/uL Hgb 13.3 (12.0-16.0) g/dL Hct 39.3 (36-46) % MCV 97.8 (80-100) fL MCH 33.2 (26-34) PG MCHC 33.9 (30-36) % RDW 14.6 (11.6-14.8) % Plt Count 203 (150-400) X10^3/uL Neut % (Auto) 48.0 L (50-75) % Lymph % (Auto) 34.0 (25-40) % Aurora % (Auto) 13.2 (3-14) % Eos % (Auto) 3.6 (2-4) % Baso % (Auto) 1.2 (0-2) % Neut # (Auto) 2200 (1480-4811) /uL Lymph # (Auto) 1500 (6576-8453) /uL Aurora # (Auto) 600 (0-900) /uL Eos # (Auto) 200 (0-450) /uL Baso # (Auto) 100 (0-100) /uL PT 32.1 H (10.1-12.7) SECONDS INR 2.8 H (0.9-1.3) APTT 43 H D (26.4-36.2) SECONDS Sodium 135 L (137-145) mmol/L Potassium 4.1 (3.4-5.1) mmol/L Chloride 100 (98-107) mmol/L Carbon Dioxide 29 (22-32) mmol/L BUN 19 H (7-17) mg/dL Creatinine 0.76 (0.52-1.04) mg/dL Estimated GFR > 60.0 (>60) mL/min BUN/Creatinine Ratio 25.0 H (6-22) Glucose 112 H (80-110) mg/dL Calcium 9.2 (8.4-10.2) mg/dL Magnesium (1.6-2.3) mg/dL Total Bilirubin 0.8 (0.2-1.3) mg/dL AST 43 H (14-36) IU/L ALT 23 (<35) IU/L Alkaline Phosphatase 50 (38-126) U/L Total Creatine Kinase 69 (30-135) U/L CK-MB (CK-2) TNP CK-MB (CK-2) Rel Index TNP Troponin I 0.014 (0.01-0.034) ng/mL Total Protein 7.4 (6.3-8.2) g/dL Albumin 4.1 (3.5-5.0) g/dL Globulin 3.3 (1.7-4.1) g/dL Albumin/Globulin Ratio 1.2 (1.0-2.8) COVID-19 PCR (Negative) 05/06/20 05/06/20 Range/Units 19:00 20:00 WBC (4.5-11.0) X10^3/uL RBC (4.0-5.2) X10^6/uL Hgb (12.0-16.0) g/dL Hct (36-46) % MCV (80-100) fL MCH (26-34) PG MCHC (30-36) % RDW (11.6-14.8) % Plt Count (150-400) X10^3/uL Neut % (Auto) (50-75) % Lymph % (Auto) (25-40) % Aurora % (Auto) (3-14) % Eos % (Auto) (2-4) % Baso % (Auto) (0-2) % Neut # (Auto) (4080-6129) /uL Lymph # (Auto) (1533-5939) /uL Aurora # (Auto) (0-900) /uL Eos # (Auto) (0-450) /uL Baso # (Auto) (0-100) /uL PT (10.1-12.7) SECONDS INR (0.9-1.3) APTT (26.4-36.2) SECONDS Sodium (137-145) mmol/L Potassium (3.4-5.1) mmol/L Chloride (98-107) mmol/L Carbon Dioxide (22-32) mmol/L BUN (7-17) mg/dL Creatinine (0.52-1.04) mg/dL Estimated GFR (>60) mL/min BUN/Creatinine Ratio (6-22) Glucose (80-110) mg/dL Calcium (8.4-10.2) mg/dL Magnesium 2.0 (1.6-2.3) mg/dL Total Bilirubin (0.2-1.3) mg/dL AST (14-36) IU/L ALT (<35) IU/L Alkaline Phosphatase (38-126) U/L Total Creatine Kinase (30-135) U/L CK-MB (CK-2) CK-MB (CK-2) Rel Index Troponin I (0.01-0.034) ng/mL Total Protein (6.3-8.2) g/dL Albumin (3.5-5.0) g/dL Globulin (1.7-4.1) g/dL Albumin/Globulin Ratio (1.0-2.8) COVID-19 PCR Negative (Negative) Point of Care Testing Glucose POC [address] scan - head: Radiologist's Impression: [place] [address] CT Scan Report Signed Patient: Glenys Munoz R#: [id number] : 9Acct:[id number] Age/Sex: 80 / FDate of Service: 05/06/20 Loc: ED Accession Number: [id number] Procedure: CT Stroke Ordering Provider: Gaston Ryan MD PROCEDURE: CT STROKE INDICATIONS: STROKE SYMPTOMS TECHNIQUE: Noncontrast 4.5 mm thick angled axial sections acquired from the foramen magnum to the vertex, with coronal reformats. For radiation dose reduction, the following was used: automated exposure control, adjustment of mA and/or kV according to patient size. COMPARISON: None. FINDINGS: Image quality: Excellent. CSF spaces: Basal cisterns are patent. No extra-axial fluid collections. The ventricles are symmetric in size and shape. Brain: No intracranial bleeds or masses. There is cerebral volume loss for age, with resultant ventricular and sulcal prominence. There are periventricular and deep white matter chronic small vessel ischemic changes. There is an ill-defined area in the right frontal periventricular white matter measuring approximately 2.1 cm of more focal hypodensity. More caudally, there is a well-defined area of infarct involving the anterior limb of the right internal capsule. There is intracranial internal carotid artery atherosclerosis. Skull and face: Calvarium and visualized facial bones appear intact, without suspicious lesions. Sinuses: Visualized sinuses and mastoids are clear. IMPRESSION: 1. No acute hemorrhage. 2. 2.1 cm area in the right frontal periventricular white matter of ill-defined hypodensity, subacute or chronic ischemic changes possible. 3. Well-defined, remote infarct in the right anterior limb internal capsule. 4. Findings called to Dr. oMntana in the emergency room at 19:14 hours. This study fulfills neurological imaging criteria for inclusion or exclusion of acute stroke therapies based on available published neurological guidelines. Dictated by: Vicky Carroll M.D. on 05/06/2020 at 19:11 Approved by: Vicky Carroll M.D. on 05/06/2020 at 19:16 CTA - brain/neck: Radiologist's Impression: [place] [address] CT Scan Report Signed Patient: Glenys Munoz R#: [id number] : 9Acct:[id number] Age/Sex: 80 / FDate of Service: 05/06/20 Loc: ED Accession Number: [id number] Procedure: CT angio head and neck Ordering Provider: Gaston Ryan MD PROCEDURE: CT ANGIO HEAD AND NECK INDICATIONS: Confusion TECHNIQUE: Pre-contrast 4.5 mm thick sections acquired from the foramen magnum to the vertex. After the administration of intravenous contrast, 1 mm thick sections acquired from the aortic arch through the [place] of [place]. Post-contrast 4.5 mm thick sections then re-acquired from the foramen magnum to the vertex. 3-dimensional vkuappf-bufpprcjj-xnyisydfbv (MIP) and/or volume rendering reformats were acquired of the central intracranial vasculature and neck separately. COMPARISON: None. FINDINGS: Image quality: Excellent. BRAIN: CSF spaces: Ventricles are normal in size and shape. Basal cisterns are patent. No extra-axial fluid collections. Brain: No midline shift. No intracranial bleeds or masses. Stone-white matter interface appears intact. There is a chronic appearing infarct in the right frontal periventricular region, a portion of which demonstrates well-defined margins and involves the anterior limb of the internal capsule. Periventricular gliosis results in mild focal ex vacuo dilatation of the right lateral ventricle. Skull and face: Calvarium and facial bones appear intact, without suspicious lesions. Orbits appear normal. Sinuses: Sinuses and mastoids are clear. HEAD CT ANGIOGRAPHY: Anterior circulation: Intracranial internal carotid arteries are normal in size and flow. Heavy atherosclerotic calcification is present. The flow within the paired anterior cerebral arteries is normal and symmetric. The flow within the middle cerebral arteries is normal and symmetric. The anterior communicating artery is seen. No aneurysms are seen. Posterior circulation: Visualized portions of the vertebral arteries demonstrate normal caliber, and join to form a normal appearing basilar artery. Flow within the posterior cerebral arteries is normal and symmetric. No aneurysms are seen. NECK CT ANGIOGRAPHY: Carotid system: The great vessels demonstrate a conventional anatomy as they arise from the aortic arch. The origins of the common carotid arteries appear patent. The common carotid arteries demonstrate normal caliber and courses. The bifurcation regions demonstrate moderate calcification at the ICA origins bilaterally, right slightly worse than left causing about a 50% stenosis on the right. The internal carotid arteries demonstrate normal calibers and tortuous distal courses. Posterior circulation: The origins of the vertebral arteries both appear widely patent. The more superior extracranial portions of both vertebral arteries also demonstrate normal courses and calibers. They join to form a normal appearing basilar artery. Soft tissues: Visualized neck soft tissues demonstrate no suspicious abnormalities. Bones: There is mild levoscoliosis of the cervical spine and slight accentuation of lordosis. Partially imaged median sternotomy changes are present. Bridging osteophytosis throughout the upper thoracic spine. No suspicious bony lesions. Visualized cervical spine appears normally aligned. IMPRESSION: 1. No suspicious intracranial enhancement. 2. No evidence of acute intracranial arterial occlusion, severe stenosis, or intracranial aneurysm. 3. Moderate ICA origin calcification bilaterally, right greater than left with a 50% stenosis. Confirmation with carotid ultrasound could be performed. 4. 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 Any quantitative measurements of stenosis were performed using NASCET criteria. Dictated by: Vicky Carroll M.D. on 05/06/2020 at 19:40 Approved by: Vicky Carroll M.D. on 05/06/2020 at 19:54 ECG Data Attestation: I personally reviewed and interpreted this ECG as follows: Interpretation: Normal sinus rhythm, left bundle branch block which is not new. Ventricular rate 73. MDM Narrative Medical decision making narrative: Reviewed readings for CT scan of the head as well as CT angiogram head and neck. Subacute versus chronic findings on frontal lobe area. Reviewed with stroke team, dr martinez. No changes in management this time. Stroke Core Measures Contraindications for TPA in CVA: INR>1.7 Discharge Plan Departure Patient Disposition: Admitted as Observation Clinical Impression: Transient cerebral ischemia Qualifiers: Transient cerebral ischemia type: unspecified Qualified Code(s): G45.9 - Transient cerebral ischemic attack, unspecified Discharge Date/Time: 05/06/20 21:00 Admit Date/Time: 05/06/20 20:47 Admit Provider: Simon Jerome
[2020-05-06 19:13] LABS: Add Manual Diff / Slide Review NO; Basophils Absolute Auto 100 /uL (0-100); Basophils Percent Auto 1.2 % (0-2); Eosinophils Absolute Auto 200 /uL (0-450); Eosinophils Percent Auto 3.6 % (2-4); Hematocrit 39.3 % (36-46); Hemoglobin 13.3 g/dL (12.0-16.0); Lymphocytes Absolute Auto 1500 /uL (1100-4500); Mean Corpuscular HGB Conc 33.9 % (30-36); Mean Corpuscular Hemoglobin 33.2 PG (26-34); Mean Corpuscular Volume 97.8 fL (80-100); Monocytes Absolute Auto 600 /uL (0-900); Monocytes Percent Auto 13.2 % (3-14); Neutrophils Absolute Auto 2200 /uL (1500-7000); Platelet Count 203 X10^3/uL (150-400); Red Blood Cell Count 4.02 X10^6/uL (4.0-5.2); Red Cell Distribution Width 14.6 % (11.6-14.8); White Blood Cell Count 4.5 X10^3/uL (4.5-11.0)
[2020-05-06 19:19] LABS: INR 2.8 (0.9-1.3); Prothrombin Time 32.1 SECONDS (10.1-12.7)
[2020-05-06 19:22] LABS: PTT Partial Thromboplastin Tim 43 SECONDS (26.4-36.2)
[2020-05-06 19:24] LABS: Alanine Aminotransferase 23 IU/L (<35); Albumin 4.1 g/dL (3.5-5.0); Albumin Globulin Ratio 1.2 (1.0-2.8); Alkaline Phosphatase 50 U/L (38-126); Aspartate Aminotransferase 43 IU/L (14-36); Bilirubin Total 0.8 mg/dL (0.2-1.3); Blood Urea Nitrogen 19 mg/dL (7-17); Calcium 9.2 mg/dL (8.4-10.2); Carbon Dioxide 29 mmol/L (22-32); Chloride 100 mmol/L (98-107); Creatine Kinase 69 U/L (30-135); Estimated Glomerular Filt Rate > 60.0 mL/min (>60); Globulin 3.3 g/dL (1.7-4.1); Glucose 112 mg/dL (80-110); HEMOLYSIS 21 (0-50); Potassium 4.1 mmol/L (3.4-5.1); Sodium 135 mmol/L (137-145); Total Protein 7.4 g/dL (6.3-8.2)
[2020-05-06 19:36] LABS: Troponin I 0.014 ng/mL (0.01-0.034)
[2020-05-06] MEDS: SODIUM CHLORIDE 0.9% 500 ML 1000 ML IV (19:57)
[2020-05-06 20:21] LABS: COVID19 -Nasal RAPID Negative (Negative)
--- NOTE | 2020-05-06 21:45 | PM.HP.1 ---
History of Present Illness History of Present Illness Date Patient Seen: 05/06/20 Time Patient Seen: 21:33 Chief complaint: patient states possible mini stroke Patient History Medical History Atrial fibrillation (Acute) CAD (coronary artery disease) (Acute) Cardiomyopathy (Acute) GERD (gastroesophageal reflux disease) (Acute) Glucose intolerance (Acute) Hearing impaired (Acute) HLD (hyperlipidemia) (Acute) HTN (hypertension) (Acute) Hypothyroidism (Acute) LBBB (left bundle branch block) (Acute) Nonrheumatic aortic (valve) stenosis (Acute) Osteoarthritis (Acute) Osteoporosis (Acute) Panic disorder (Acute) RLS (restless legs syndrome) (Acute) Systolic heart failure (Acute) T12 compression fracture (Acute 06/04/12) Urinary incontinence (Acute) Vertigo (Acute) Surgical History H/O: hysterectomy (Acute) Hip joint replacement status (Acute) History of aortic valve replacement (Acute ~2001) History of lumpectomy of right breast (Acute) Hx of bilateral cataract extraction (Acute) Hx of removal of cyst (Acute) Hx of tonsillectomy (Acute) S/P CABG x 1 (Acute ~2001) Family & Social History Family History (Updated 05/07/20 @ 02:41 by YVONNE Rose) Father Diabetes mellitus Chronic kidney disease Heart disease Mother Cancer Social History: household members spouse,family Safety & Behavioral: Feels Safe in Current Yes Environment Suicidal Ideation Description None Suicide Plan Description No Plan Tobacco & Substance use: Smoking Status Never smoker alcohol intake never alcohol intake frequency holiday/special occasion Substance Use Type does not use Meds Home Medications and Allergies Home Medications Medication Instructions Recorded Confirmed Type diphenhydramine HCl 25 mg PO BEDTIME PRN #0 06/17/12 05/06/20 History acetaminophen [Tylenol Extra 500 mg PO Q8HP PRN #0 06/18/12 05/06/20 History Strength] Caltrate 600 plus D 1 tab PO BID 09/03/19 05/06/20 History cyclobenzaprine 10 mg PO Q6-8H PRN 09/03/19 05/06/20 History ezetimibe [Zetia] 10 mg PO BEDTIME 09/03/19 05/06/20 History levothyroxine [Synthroid] 125 mcg PO SEEINSTR 09/03/19 05/06/20 History niacin 1,000 mg PO BID 09/03/19 05/06/20 History omeprazole 40 mg PO BEDTIME 09/03/19 05/06/20 History pramipexole 0.75 mg PO BEDTIME PRN 09/03/19 05/06/20 History rosuvastatin [Crestor] 40 mg PO BEDTIME 09/03/19 05/06/20 History trospium 50 mg PO BEDTIME 09/03/19 05/06/20 History warfarin 2.5 mg PO DAILY 09/03/19 05/06/20 History docusate sodium [DOK] 100 mg PO BID #40 cap 09/29/19 05/06/20 Rx ascorbic acid (vitamin C) [Vitamin 1,000 mg PO DAILY 10/17/19 05/06/20 History C] melatonin 6 mg PO PRN PRN 10/17/19 05/06/20 History tramadol 100 mg PO Q8HP PRN #10 tab 10/20/19 Rx amiodarone 200 mg PO DAILY 05/06/20 05/06/20 History aspirin [Aspirin Low Dose] 81 mg PO DAILY 05/06/20 05/06/20 History furosemide 05/06/20 History metoprolol tartrate See Rx Instructions .ROUTE .COMPLEX 05/06/20 05/06/20 History vitamin B complex [B-Complex] 1 tab PO DAILY 05/06/20 05/06/20 History vitamin E 400 unit PO DAILY 05/06/20 05/06/20 History Allergies Allergy/AdvReac Type Severity Reaction Status Date / Time latex Allergy Intermediate ITCHING Verified 10/17/19 13:47 Review of Systems Review of Systems ROS: Yes All systems reviewed with the patient and are negative except as otherwise documented Exam Vital Signs (past 8 hours): - 05/06/20 18:51 05/06/20 19:43 05/06/20 20:00 Temperature 98.2 F Pulse Rate 87 61 63 Respiratory Rate 20 13 17 Blood Pressure 183/79 H 150/66 H Pulse Oximetry 96 100 99 05/06/20 20:30 05/06/20 20:34 05/06/20 21:17 Temperature 97.6 F Pulse Rate 74 63 63 Respiratory Rate 31 H 18 Blood Pressure 159/67 H 143/59 H Pulse Oximetry 97 100 98 Oxygen Delivery Method Room Air Narrative Exam Narrative: GENERAL APPEARANCE: well developed, well nourished, in no acute distress. HEENT: Symmetrical facies, no facial droop, no ptosis, PERRLA, conjunctiva clear, EOMs intact without nystagmus, no sinus tenderness to percussion, no rhinorrhea, mucous membranes are moist and pink without lesions or exudate. NECK/THYROID: neck supple, no JVD, no carotid bruit, no thyromegaly, trachea midline. LYMPH NODES: no cervical or supraclavicular lymphadenopathy. SKIN: [place], warm and dry, no visible lesions, rashes, ulcerations or petechiae. HEART: regular rate and rhythm, S1-S2, 1/6 systolic murmur with click, no rubs or gallops, brisk capillary refill, no edema LUNGS: clear to auscultation bilaterally, no coarseness crackles or wheezing, no cough present CHEST: Symmetrical movement, no accessory muscle use, good tidal volume. ABDOMEN: Soft, no distention, no abdominal tenderness, no guarding or peritoneal signs, no organomegaly, no flank or suprapubic tenderness, active bowel tones. EXTREMITIES: moves all extremities, strength is 5/5 and symmetrical, no deformities or joint effusions. NEUROLOGIC: AAO x4, no focal or lateralizing neurologic deficits, cranial nerves II-XII grossly intact, NIH score 0, sensation intact to light touch, hearing grossly normal to speech. PSYCH: Good judgment, good insight, linear thought process, cooperative, appropriate with stable behavior Objective Labs Result Diagrams: 05/06/20 19:00 05/06/20 19:00 Labs: Laboratory Results - last 24 hr 05/06/20 05/06/20 05/06/20 19:00 19:00 19:00 WBC 4.5 RBC 4.02 Hgb 13.3 Hct 39.3 MCV 97.8 MCH 33.2 MCHC 33.9 RDW 14.6 Plt Count 203 Neut % (Auto) 48.0 L Lymph % (Auto) 34.0 Falls % (Auto) 13.2 Eos % (Auto) 3.6 Baso % (Auto) 1.2 Neut # (Auto) 2200 Lymph # (Auto) 1500 Falls # (Auto) 600 Eos # (Auto) 200 Baso # (Auto) 100 PT 32.1 H INR 2.8 H APTT 43 H D Sodium 135 L Potassium 4.1 Chloride 100 Carbon Dioxide 29 BUN 19 H Creatinine 0.76 Estimated GFR > 60.0 BUN/Creatinine Ratio 25.0 H Glucose 112 H Calcium 9.2 Magnesium Total Bilirubin 0.8 AST 43 H ALT 23 Alkaline Phosphatase 50 Total Creatine Kinase 69 CK-MB (CK-2) TNP CK-MB (CK-2) Rel Index TNP Troponin I 0.014 Total Protein 7.4 Albumin 4.1 Globulin 3.3 Albumin/Globulin Ratio 1.2 COVID-19 PCR 05/06/20 05/06/20 19:00 20:00 WBC RBC Hgb Hct MCV MCH MCHC RDW Plt Count Neut % (Auto) Lymph % (Auto) Falls % (Auto) Eos % (Auto) Baso % (Auto) Neut # (Auto) Lymph # (Auto) Falls # (Auto) Eos # (Auto) Baso # (Auto) PT INR APTT Sodium Potassium Chloride Carbon Dioxide BUN Creatinine Estimated GFR BUN/Creatinine Ratio Glucose Calcium Magnesium 2.0 Total Bilirubin AST ALT Alkaline Phosphatase Total Creatine Kinase CK-MB (CK-2) CK-MB (CK-2) Rel Index Troponin I Total Protein Albumin Globulin Albumin/Globulin Ratio COVID-19 PCR Negative Assessment & Plan Assessment & Plan narrative: This is an 80-year-old female patient who had an abrupt onset of cognitive impairment with confusion and perseveration that lasted approximately 90 minutes. Patient symptoms fully resolved upon arrival to the ER. 1. 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 Patient states that felt like she was asleep in a dream state. The patient denies antecedent headaches visual changes or dizziness. NIH score 0. 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 -patient is unaware of previous infarct and reports no residual numbness weakness or cognitive impairment. -patient has mechanical heart valve and is already anticoagulated on warfarin with therapeutic INR 2.8. -obtain an ultrasound of the carotid arteries due to presence of mechanical valve. -will obtain echocardiogram. -serial neuro evaluations. 2. Hypertension, chronic, present on admission. Stable. -patient hypertensive upon arrival at 183/79 improved to the 140s following admission to the acute care floor. -will continue patient's home regimen of no full tartrate 50 mg in the morning 25 mg at bedtime. 3. Mechanical aortic valve, chronic, present on admission. Stable. -continue anticoagulation on warfarin at current dose 2.5 mg daily. -present mechanical valve precludes MR for stroke evaluation. 4. Coronary artery disease, status post CABG x1 vessel, chronic, present on admission. Stable. -patient denies complaints chest pain or shortness of breath. -total CK is 69 and troponin is negative at 0.014. 5. Paroxysmal atrial fibrillation, presently in sinus rhythm, chronic, present on admission. Stable. -12 lead EKG finds sinus rhythm with left bundle branch block with diffuse ST changes no complaints of chest pain or shortness of breath. -continue amiodarone 200 mg daily and metoprolol tartrate 50 mg in the morning and 25 mg at bedtime. 6. Systolic heart failure, chronic, stable -prior echocardiogram on 09/15/2019 revealed EF of 55-60%, will repeat echocardiogram. -continue home regimen of furosemide 40 mg daily. 7. Hypothyroidism, chronic condition, present on admission, stable -continue home regimen of levothyroxine 125 mcg. 8. Hyperlipidemia, chronic, stable -continue home dose of rosuvastatin 40 mg and Zetia 10 mg at bedtime. VTE prophylaxis: SCDs, enoxaparin IV fluid: Saline lock Diet: Heart healthy, low-sodium Code status: Full code, the patient designates her daughter Aurora to be her surrogate decision maker. The patient is admitted to the hospital due to the severity of her symptoms, risk for complications or adverse events. The patient is admitted as observation with expected length of stay to be less than 2 midnights. COVID-19 COVID-19 status: Negative Result date/Date tested (Pos, Neg/Pending): 05/06/20 Scores GCS Bon coma scale eye opening: Spontaneous Clifford coma scale verbal response: Orientated Clifford coma scale motor response: Obey commands Clifford coma scale total score: 15 NIHSS Level of Conciousness: Alert, keenly responsive Ask month/age: Answers both questions correctly. Open/close eyes, close hand: Performs both tasks correctly Best gaze horizontal: Normal Visual holder: No visual loss Facial palsy: Normal symetrical movement Left arm drift: No drift for full 10 sec Right arm drift: No drift for full 10 sec Left leg drift: No drift for full 5 sec Right leg drift: No drift for full 5 sec Limb ataxia: Absent Sensory on face/arms/legs: Normal, no sensory loss Best language: No aphasia, normal Dysarthria: Normal Extinction or inattention: No abnormality Total NIH Stroke scale score: 0 Quality VTE Deep Vein Thrombosis/Pulmonary Embolism Present on Admission: No
[2020-05-07] MEDS: METOPROLOL IR 25 MG TABLET PO (00:06)
[2020-05-07] MEDS: ROSUVASTATIN 10 MG TABLET 40 MG PO (00:06)
[2020-05-07 00:12] VITALS: BP 118/77; PULSE 66; RESP 20; TEMP 36.2; O2SAT 99
[2020-05-07] MEDS: PRAMIPEXOLE 0.25 MG TABLET 0.75 MG PO (00:13)
[2020-05-07] MEDS: WARFARIN 5 MG TABLET 2.5 MG PO (01:31)
--- NOTE | 2020-05-07 02:49 | DI.US.S_ITS ---
PROCEDURE: US CAROTID DOPPLER BI INDICATIONS: TIA PRIOR CVA TECHNIQUE: Color and pulse Doppler interrogation was performed of both carotid systems, with image documentation and velocity measurements. COMPARISON: None. FINDINGS: Stenosis calculations are based on SRU (Society of Radiologists in Ultrasound) criteria. Right side: Brachial blood pressure: 134/62 mm Hg. Common carotid artery peak systolic velocity: 91 cm/sec. Internal carotid artery peak systolic velocity: 100 cm/sec. Internal carotid artery end diastolic velocity: 15 cm/sec. External carotid artery peak systolic velocity: 70 cm/sec. ICA/CCA peak systolic ratio: 1.1 . Stone scale imaging description: Moderate calcific and soft plaque Percent internal carotid artery stenosis: Less than 50% stenosis . Vertebral artery: Flow direction is antegrade. Left side: Brachial blood pressure: 122/61 mm Hg. Common carotid artery peak systolic velocity: 89 cm/sec. Internal carotid artery peak systolic velocity: 117 cm/sec. Internal carotid artery end diastolic velocity: 17 cm/sec. External carotid artery peak systolic velocity: 72 cm/sec. ICA/CCA peak systolic ratio: 1.3 . Stone scale imaging description: Mild calcific and soft plaque Percent internal carotid artery stenosis: Less than 50% stenosis . Vertebral artery: Flow direction is antegrade. IMPRESSION: [id number] calcific and soft plaque as discussed above involving the proximal internal carotid arteries bilaterally, with less than 50% stenosis of the internal carotid artery bilaterally in this area. Dictated by: Justus Joiner M.D. on 05/07/2020 at 9:51 Approved by: Justus Joiner M.D. on 05/07/2020 at 9:53
[2020-05-07 06:12] VITALS: BP 120/62; PULSE 67; RESP 20; TEMP 36; O2SAT 94
[2020-05-07 06:19] LABS: BUN Creatinine Ratio 20.3 (6-22); Blood Urea Nitrogen 12 mg/dL (7-17); Calcium 8.6 mg/dL (8.4-10.2); Carbon Dioxide 32 mmol/L (22-32); Chloride 103 mmol/L (98-107); Cholesterol 156 mg/dL (140-199); Estimated Glomerular Filt Rate > 60.0 mL/min (>60); Glucose 91 mg/dL (80-110); HDL Cholesterol 58 mg/dL (40-60); HEMOLYSIS < 15 (0-50); LDL Cholesterol Calculated 86 mg/dL (<100); Potassium 3.7 mmol/L (3.4-5.1); Sodium 131 mmol/L (137-145); Triglycerides 60 mg/dL (35-150)
[2020-05-07 06:20] LABS: Hemoglobin A1C% w Est Avg Glu 5.1 % (4.0-6.0)
[2020-05-07 06:57] LABS: TSH w/ Reflex to FT4 5.68 uIU/mL (0.47-4.68)
[2020-05-07 07:26] LABS: Free T4, Direct Thyroxine 1.76 ng/dL (0.78-2.19)
[2020-05-07 08:21] LABS: INR 2.8 (0.9-1.3); Prothrombin Time 31.7 SECONDS (10.1-12.7)
[2020-05-07 09:30] VITALS: TEMP 36.6
[2020-05-07 09:32] VITALS: BP 122/61; PULSE 68; RESP 16; O2SAT 94
[2020-05-07] MEDS: LEVOTHYROXINE 125 MCG TABLET PO (09:56)
[2020-05-07] MEDS: AMIODARONE 200 MG TABLET PO (09:56)
[2020-05-07] MEDS: NIACIN 500 MG TABLET 1000 MG PO (09:57)
[2020-05-07] MEDS: METOPROLOL IR 50 MG TABLET PO (09:57)
--- NOTE | 2020-05-07 10:48 | OT.IP.EVAL ---
Past Medical History (Last Reviewed 05/07/20 @ 02:40 by YVONNE Rose) Atrial fibrillation (Acute) CAD (coronary artery disease) (Acute) Cardiomyopathy (Acute) GERD (gastroesophageal reflux disease) (Acute) Glucose intolerance (Acute) Hearing impaired (Acute) HLD (hyperlipidemia) (Acute) HTN (hypertension) (Acute) Hypothyroidism (Acute) LBBB (left bundle branch block) (Acute) Nonrheumatic aortic (valve) stenosis (Acute) Osteoarthritis (Acute) Osteoporosis (Acute) Panic disorder (Acute) RLS (restless legs syndrome) (Acute) Systolic heart failure (Acute) T12 compression fracture (Acute 06/04/12) Urinary incontinence (Acute) Vertigo (Acute) Surgical History (Last Reviewed 05/07/20 @ 02:40 by YVONNE Rose) H/O: hysterectomy (Acute) Hip joint replacement status (Acute) History of aortic valve replacement (Acute ~2001) History of lumpectomy of right breast (Acute) Hx of bilateral cataract extraction (Acute) Hx of removal of cyst (Acute) Hx of tonsillectomy (Acute) S/P CABG x 1 (Acute ~2001) Occupational Therapy Inpatient Evaluation/Re-Eval M1 PT/OT-IP Prior Functional Status Start: 05/07/20 08:23 Freq: NEEDED Status: Active Protocol: Document 05/07/20 12:55 CGR (Rec: 05/07/20 13:04 CGR [id number]) Medical Review Prior Functional Status Medical History Reviewed Yes Diet/Fluid Consistency Regular Communication WNL. No deficit noted. Able to make needs known. Mobility and Gait IND at baseline. Pt reports she was able to walk around independently inside the house and outside in the yard. Pt does not drive nor do grocery shopping. Her ambulation was mostly at home. Activities of Daily Living and IADL's Pt is IND with most ADLs except for when showering and getting up from the chair in the bathroom. Pt's daughter stands by for assist in the bathroom while pt independently showers sitting on the shower seat. Pt dries herself independently on another chair out of the shower. Pt needs assist from her daugher to stand up from the chair. Prior Functional Level (Other details) Pt reports she has adjustable bed at home. Pt's PMH include R PRIETO in September with complications that lead to I&D surgery after. Pt was discharged to SNF and returned to home and started HH since January and progressed to OP somewhere in March. Information obtained with P.T. during co-eval. Social History Household Members spouse,family,other Living Arrangements House Number of Floors (Floors) One Floor Number of Stairs To Enter/Railing? 0 LUBA but there is a threshold . Home Environment High Toilet,Walk in Shower Home Equipment Front Wheel Walker,Straight Cane,Manual Wheelchair,Raised Toilet Seat w/Armrests,Shower Seat with Backrest,Hand Held Shower,Manager Parking,Grab Bars In Shower Employment Status Retired Additional Social History Comment Pt reports she lives withher , daughter, and son-in- law. M2 OT-IP Current Condition Start: 05/07/20 12:55 Freq: Status: Active Protocol: Document 05/07/20 12:55 CGR (Rec: 05/07/20 13:04 CGR [id number]) Occupational Therapy Current Condition Current Condition Evaluation Date 05/07/20 Treatment Diagnosis TIA Diagnosis Onset Date 05/06/2020 M3 OT- IP Subjective and Pain Start: 05/07/20 12:55 Freq: Status: Active Protocol: Document 05/07/20 12:55 CGR (Rec: 05/07/20 13:04 CGR [id number]) OT- Subjective Occupational Therapy Visit Type Type Initial Evaluation Visit Start Time 10:18 Visit Stop Time 10:48 Total Visit Minutes 30 Notes Co-eval with P.T. OT Pain Assessment Pain When Pain Assessed At Rest Pain Present Pain Present Denied Pain M4 OT- IP ADL's Start: 05/07/20 12:55 Freq: Status: Active Protocol: Document 05/07/20 12:55 CGR (Rec: 05/07/20 13:04 CGR [id number]) OT [id number] Comments OT Self-Feeding Comments Not meal time OT ADL-Grooming General Evaluation Grooming Ability Independent Comments OT Grooming Comments standing at sink for washing hands OT ADL-Oral Care Comments Oral Care Comments not performed OT ADL-Dressing General Eval Lower Body Dressing Ability Total Assistance Areas Needing Assistance Socks Comments OT Dressing Comments Pt states she doesn't wear sock at home. Socks total assist. OT ADL-Toileting General Evaluation Toileting Ability Minimal Assistance Areas Needing Assistance Manage Clothing Devices Toileting Assistive Devices Grab Bars Comments OT Toileting Comments PT needed assist with managing her diaper. Pt states she typically wears a brief at home with less difficulty. OT ADL-Bathing Comments OT Bathing Comments not performed M5 OT- IP IADL's Start: 05/07/20 12:55 Freq: Status: Active Protocol: Document 05/07/20 12:55 CGR (Rec: 05/07/20 13:04 CGR [id number]) OT-Instrumental Activities of Daily Living Deficits IADL Deficits Identified No Deficits Home Safety Awareness Awareness of Need for Assistance at Home Good Awareness Ability to Problem Solve Emergency Able to Problem Solve Situations Medication Management Medication Management No Deficits Identified Money Management Money Management No Deficits Identified Meal Preparation Meal Preparation Caregiver Provides Supervision ,Caregiver Provides Assist Field Human Resources Manager Field Human Resources Manager Caregiver Provides Assist Driving Driving Comments Pt no longer drives. M6 OT- IP Functional Cognition Start: 05/07/20 12:55 Freq: Status: Active Protocol: Document 05/07/20 12:55 CGR (Rec: 05/07/20 13:04 CGR [id number]) Cognitive Factors Limiting Selfcare Function Cognitive Ability Level of Alertness Alert Patient Orientation Name,Age,Birthday,Month,Date, Year,Day of Week,Place, Situation Attention Span Ability Capable of Focused Attention, Capable of Sustained Attention Ability to Follow Commands Able to Follow Multi-Step Commands Memory Description No Deficits Noted Safety Awareness No Deficits Noted Cognitive Comments Cognitive Assessment Comments Pt appears to be at her baseline wtih typical aging cognition. OT- Vision and Hearing OT- Hearing Assessment OT- Hearing Assessment WFL OT- Vision Assessment Visual Acuity Glasses All The Time Visual Attentiveness WFL Occular Pursuits WFL Visual Convergence WFL Vision Assessment Comments Pt wears bifocals M7 OT- IP Mobility and Balance Start: 05/07/20 12:55 Freq: Status: Active Protocol: Document 05/07/20 12:55 CGR (Rec: 05/07/20 13:04 CGR [id number]) OT- Bed Mobility Assessment Rolling Level of Assistance Standby Assistance Supine to Sit Supine to Sit Assist Standby Assistance Sit to Supine Sit to Supine Assist Standby Assistance Scooting Scooting to Edge of Bed Standby Assistance OT-Transfer Assessment Sit to and From Stand Sit to and from Stand Standby Assistance Transfers Transfer Ability Standby Assistance Technique Transfer Destination Bed,Chair,Toilet Transfer Technique Stand Step Pivot Devices Transfer Assistive Devices Gait Belt,Front Wheeled Walker Comments Mobility Comments SBA for all mobility OT- Gait Assessment Gait Gait Assistance Required: Standby Assistance Assistive Devices Assistive Device Gait Belt,Front Wheeled Walker Comments Gait Ability Comments SBA for mobility around the room. OT- Balance Assessment Sitting Balance and Reactions Static Sitting Balance Ability Normal Dynamic Sitting Balance Ability Good M8 OT- IP Objective Assessments Start: 05/07/20 12:55 Freq: Status: Active Protocol: Document 05/07/20 12:55 CGR (Rec: 05/07/20 13:04 CGR [id number]) OT Gross Range of Motion Upper Extremity Range of Motion Assessment Within Functional Limits OT Strength Upper Extremity Strength Assessment Within Functional Limits Comments Strength Comments 4/5 with noted pain to the R shld. OT- Coordination Assessment Upper Extremity Finger to Nose Test Within Functional Limits Finger Tapping Test Within Functional Limits OT-Muscle Tone Assessment Muscle Tone WNL Yes OT Sensation Assessment Edema Edema Absent M9 OT- IP Assessment and Plan Start: 05/07/20 12:55 Freq: Status: Active Protocol: Document 05/07/20 12:55 CGR (Rec: 05/07/20 13:04 CGR [id number]) OT Summary Assessment and Plan Summary Progress Towards Goals Safe For Discharge,Goals Met Assessment Summary Pt presents as a low complexity evalution s/p admit for confusion. Pt appears to be at her baseline per pt and daughter. No further OT needs. Frequency of Treatment Frequency Of Treatment Discharge Discharge Recommendations OT Discharge Recommendations Home with Assistance Transportation Needs at Discharge Private Vehicle
[2020-05-07 11:22] VITALS: BP 114/67; PULSE 66; RESP 18; TEMP 36.6; O2SAT 98
--- NOTE | 2020-05-07 11:40 | DIET.PN ---
Dietary Progress Note Assessment: 80y F admitted after period of 90 minutes of confusion thought to be TIA referred to nutrition for obesity. Pt worked c RD during last admit in August and family has been following through with dietary advice by eating less bread, more fruits and veggies, and smaller portion sizes. Pt has 28# intentional weight loss and remarks she is breathing easier and has better mobility. Discussed c pt a goal of losing another 20# by continuing intervention to further improve health and mobility, they agree. Pts daughter (who lives in the home) expressed barriers including cost of fresh fruits and veggies, they have been consuming full sodium canned varieties. HT: 165.1cm WT: 107.2kg UBW: 120kg (-28# intentional in 8mo) BMI: 39.3 down from 45 in 09/18 Interventions: 1. Discussed no-sodium canned veggies being same jackson as regular. If eating any canned foods to rinse in colander to remove excess sodium and sugar. Discussed including more frozen F/V in diet for cost savings and for better texture. Pt and family on board c implementing these changes.
--- NOTE | 2020-05-07 11:45 | PM.DS.1 ---
History of Present Illness History of Present Illness Date Patient Seen: 05/07/20 Time Patient Seen: 11:45 Chief complaint: patient states possible mini stroke Narrative: This is an 80-year-old female patient who had an abrupt onset of cognitive impairment with confusion and perseveration that lasted approximately 90 minutes. Patient states that felt like she was asleep in a dream state. Patient symptoms fully resolved upon arrival to the ER. Patient stated that she had no other symptoms of CVA including slurred speech, facial droop, imbalance, weakness, numbness. She denied recent fever, chills, cough, shortness of breath, palpitations, headache. She does state that she has not slept more than a couple of hours straight for months due to increasing anxiety and stress, as well as her husbands ? trilogy machine which keeps alarming. Discharge Providers Provider Date of admission: 05/06/20 20:47 Discharge Date: 05/07/20 Consults: 05/06/20 20:48 Consult to Dietitian, Adult Routine Comment: Reason For Exam: TIA, history CVAs, obese Consult to Occupational Therapy Evaluate & Treat Comment: Physician Instructions: Evaluate and treat Consult to Physical Therapy Evaluate & Treat Comment: Physician Instructions: Evaluate and Treat 05/06/20 20:50 Consult to Speech Therapy Evaluate & Treat Comment: Today, history CVA Physician Instructions: Evaluate and treat Discharge provider: Simon Kumar DO Summary Hospital Course Discharge Diagnosis: Please see hospital course by problem list noted below Hospital Course: This is an 80-year-old female patient who had an abrupt onset of cognitive impairment with confusion and perseveration that lasted approximately 90 minutes. Patient symptoms fully resolved upon arrival to the ER. 1. 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 Patient states that felt like she was asleep in a dream state. The patient denies antecedent headaches visual changes or dizziness. NIH score 0. 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 -patient is unaware of previous infarct and reports no residual numbness weakness or cognitive impairment. -patient has mechanical heart valve and is already anticoagulated on warfarin with therapeutic INR 2.8. Unable to obtain echocardiogram due to limited availability during her short stay. She may require outpatient echocardiogram as an outpatient however patient does have recent study from earlier this year and is anticoagulated on warfarin. -carotid doppler imaging showed no significant stenoses. MRI unable to be performed at due to heart valve. -patient described furhter recent lack of sleep and significant anxiety regarding husbands chronic medical illness. She cannot sleep for more than a couple of hours at a time which may be related to her symptoms as well. 2. Hypertension, chronic, present on admission. Stable. -patient was hypertensive upon arrival at 183/79 improved to the 140s following admission to the acute care floor. -will continue patient's home regimen of no full tartrate 50 mg in the morning 25 mg at bedtime. 3. Mechanical aortic valve, chronic, present on admission. Stable. -continued anticoagulation on warfarin at current dose 2.5 mg daily. -present mechanical valve precludes MR for stroke evaluation at . 4. Coronary artery disease, status post CABG x1 vessel, chronic, present on admission. Stable. -patient denied complaints chest pain or shortness of breath. -total CK is 69 and troponin is negative at 0.014. 5. Paroxysmal atrial fibrillation, presently in sinus rhythm, chronic, present on admission. Stable. -12 lead EKG found sinus rhythm with left bundle branch block with diffuse ST changes no complaints of chest pain or shortness of breath. -continued amiodarone 200 mg daily and metoprolol tartrate 50 mg in the morning and 25 mg at bedtime. 6. Systolic heart failure, chronic, stable -prior echocardiogram on 09/15/2019 revealed EF of 55-60%. -continued home regimen of furosemide 40 mg daily. 7. Hypothyroidism, chronic condition, present on admission, stable -continued home regimen of levothyroxine 125 mcg. 8. Hyperlipidemia, chronic, stable -continuedhome dose of rosuvastatin 40 mg and Zetia 10 mg at bedtime. Exam Vital Signs (past 8 hours): - 05/07/20 06:12 05/07/20 09:30 05/07/20 09:32 Temperature 96.8 F L 97.9 F Pulse Rate 67 68 Respiratory Rate 20 16 Blood Pressure 120/62 122/61 Pulse Oximetry 94 94 Oxygen Delivery Method Room Air Oxygen Flow Rate 0 Narrative Exam Narrative: GENERAL APPEARANCE: well developed, well nourished, in no acute distress. HEENT: Symmetrical facies, no facial droop, no ptosis, PERRLA, conjunctiva clear, EOMs intact without nystagmus, no sinus tenderness to percussion, no rhinorrhea, mucous membranes are moist and pink without lesions or exudate. NECK/THYROID: neck supple, no JVD, no carotid bruit, no thyromegaly, trachea midline. LYMPH NODES: no cervical or supraclavicular lymphadenopathy. SKIN: [place], warm and dry, no visible lesions, rashes, ulcerations or petechiae. HEART: regular rate and rhythm, S1-S2, 1/6 systolic murmur with click, no rubs or gallops, brisk capillary refill, no edema LUNGS: clear to auscultation bilaterally, no coarseness crackles or wheezing, no cough present CHEST: Symmetrical movement, no accessory muscle use, good tidal volume. ABDOMEN: Soft, no distention, no abdominal tenderness, no guarding or peritoneal signs, no organomegaly, no flank or suprapubic tenderness, active bowel tones. EXTREMITIES: moves all extremities, strength is 5/5 and symmetrical, no deformities or joint effusions. NEUROLOGIC: AAO x4, no focal or lateralizing neurologic deficits, cranial nerves II-XII grossly intact, NIH score 0, sensation intact to light touch, hearing grossly normal to speech. PSYCH: Good judgment, good insight, linear thought process, cooperative, appropriate with stable behavior Objective Labs Result Diagrams: 05/06/20 19:00 05/07/20 05:52 Labs: Laboratory Results - last 24 hr 05/06/20 05/06/20 05/06/20 19: 19:00 19:00 WBC 4.5 RBC 4.02 Hgb 13.3 Hct 39.3 MCV 97.8 MCH 33.2 MCHC 33.9 RDW 14.6 Plt Count 203 Neut % (Auto) 48.0 L Lymph % (Auto) 34.0 [place] % (Auto) 13.2 Eos % (Auto) 3.6 Baso % (Auto) 1.2 Neut # (Auto) 2200 Lymph # (Auto) 1500 [place] # (Auto) 600 Eos # (Auto) 200 Baso # (Auto) 100 PT 32.1 H INR 2.8 H APTT 43 H D Sodium 135 L Potassium 4.1 Chloride 100 Carbon Dioxide 29 BUN 19 H Creatinine 0.76 Estimated GFR > 60.0 BUN/Creatinine Ratio 25.0 H Glucose 112 H Hemoglobin A1c Calcium 9.2 Magnesium Total Bilirubin 0.8 AST 43 H ALT 23 Alkaline Phosphatase 50 Total Creatine Kinase 69 CK-MB (CK-2) TNP CK-MB (CK-2) Rel Index TNP Troponin I 0.014 Total Protein 7.4 Albumin 4.1 Globulin 3.3 Albumin/Globulin Ratio 1.2 Triglycerides Cholesterol LDL Cholesterol, Calc HDL Cholesterol TSH Free T4 COVID-19 PCR 05/06/20 05/06/20 05/07/20 19:00 20:00 05:52 WBC RBC Hgb Hct MCV MCH MCHC RDW Plt Count Neut % (Auto) Lymph % (Auto) [place] % (Auto) Eos % (Auto) Baso % (Auto) Neut # (Auto) Lymph # (Auto) [place] # (Auto) Eos # (Auto) Baso # (Auto) PT INR APTT Sodium 131 L Potassium 3.7 Chloride 103 Carbon Dioxide 32 BUN 12 Creatinine 0.59 Estimated GFR > 60.0 BUN/Creatinine Ratio 20.3 Glucose 91 Hemoglobin A1c Calcium 8.6 Magnesium 2.0 Total Bilirubin AST ALT Alkaline Phosphatase Total Creatine Kinase CK-MB (CK-2) CK-MB (CK-2) Rel Index Troponin I Total Protein Albumin Globulin Albumin/Globulin Ratio Triglycerides 60 Cholesterol 156 LDL Cholesterol, Calc 86 HDL Cholesterol 58 TSH Free T4 COVID-19 PCR Negative 05/07/20 05/07/20 05/07/20 05:52 05:52 08:06 WBC RBC Hgb Hct MCV MCH MCHC RDW Plt Count Neut % (Auto) Lymph % (Auto) [place] % (Auto) Eos % (Auto) Baso % (Auto) Neut # (Auto) Lymph # (Auto) [place] # (Auto) Eos # (Auto) Baso # (Auto) PT 31.7 H INR 2.8 H APTT Sodium Potassium Chloride Carbon Dioxide BUN Creatinine Estimated GFR BUN/Creatinine Ratio Glucose Hemoglobin A1c 5.1 Calcium Magnesium Total Bilirubin AST ALT Alkaline Phosphatase Total Creatine Kinase CK-MB (CK-2) CK-MB (CK-2) Rel Index Troponin I Total Protein Albumin Globulin Albumin/Globulin Ratio Triglycerides Cholesterol LDL Cholesterol, Calc HDL Cholesterol TSH 5.68 H Free T4 1.76 COVID-19 PCR Discharge Plan Discharge Plan Patient Disposition: Home Provider Discharge Comment: You were admitted to the hospital with an episode of confusion that lasted for 90 minutes. Unclear etiology but may be due to TIA, lack of sleep, medications, or a combination of all or some of the above. Please follow up with your PCP. You may be able to get an MRI at another location given your heart valve. Discharge orders & Medications Prescriptions: Continued diphenhydramine HCl 25 mg Capsule 25 mg PO BEDTIME PRN (Reason: Seasonal allergies) Qty: 0 RF: 0 acetaminophen [Tylenol Extra Strength] 500 MG tablet 500 mg PO Q8HP PRN (Reason: Pain) Qty: 0 RF: 0 cyclobenzaprine 10 mg Tablet 10 mg PO Q6-8H PRN (Reason: Muscle Spasm) RF: 0 warfarin 2.5 mg Tablet 2.5 mg PO DAILY RF: 0 omeprazole 40 mg Capsule,Delayed Release(Dr/Ec) 40 mg PO BEDTIME RF: 0 levothyroxine [Synthroid] 125 mcg Tablet 125 mcg PO SEEINSTR RF: 0 niacin 500 mg Tablet 1,000 mg PO BID RF: 0 pramipexole 0.25 mg Tablet 0.75 mg PO BEDTIME PRN (Reason: RLS) RF: 0 ezetimibe [Zetia] 10 mg Tablet 10 mg PO BEDTIME RF: 0 rosuvastatin [Crestor] 40 mg Tablet 40 mg PO BEDTIME RF: 0 trospium 60 mg Capsule,Extended Release 24hr 50 mg PO BEDTIME RF: 0 Caltrate 600 plus D 600 mg (1,500 mg)-800 unit Tablet,Chewable 1 tab PO BID RF: 0 docusate sodium [DOK] 100 mg Capsule 100 mg PO BID Qty: 40 RF: 0 melatonin 3 mg Tablet 6 mg PO PRN PRN (Reason: Sleep) RF: 0 ascorbic acid (vitamin C) [Vitamin C] 500 mg Tablet 1,000 mg PO DAILY RF: 0 tramadol 50 MG tablet 100 mg PO Q8HP PRN (Reason: Pain) Qty: 10 RF: 0 amiodarone 200 mg Tablet 200 mg PO DAILY RF: 0 aspirin [Aspirin Low Dose] 81 mg Tablet,Delayed Release (Dr/Ec) 81 mg PO DAILY RF: 0 vitamin B complex [B-Complex] Tablet 1 tab PO DAILY RF: 0 furosemide 20 mg Tablet RF: 0 vitamin E 400 unit Capsule 400 unit PO DAILY RF: 0 metoprolol tartrate 25 mg Tablet See Rx Instructions .ROUTE .COMPLEX RF: 0 Diet/Activity/Treatments Diet: Diet as Tolerated and Low-sodium Activity: As tolerated Visit Report/Discharge Packet Visit Report Forms: Patient Portal/API, Stroke Signs & Symptoms Discharge Data Attending Provider: Simon Jerome Admit Date/Time: 05/06/20 20:47 Discharges patient from system. Discharge Date/Time: 05/07/20 13:24 Quality VTE Deep Vein Thrombosis/Pulmonary Embolism Present on Admission: No
[2020-05-07] MEDS: INFLUENZA HD VACCINE 0.7 ML SYRINGE IM (12:20)
--- NOTE | 2020-05-07 12:28 | PC.NURSE ---
Addendum entered by Pam Hendrickson R.N. 05/07/20 12:34: Flu vaccine administered. Original Note: Day shift note: Patient awake, alert, and pleasant. NIH 0. No motor or sensory deficits, no changes in speech. Daughter states patients mental status is at basline. Speech therapy at bedside this am, no changes to diet. Discharge instructions given to patient, discussed importance of F/U with PMD and educated regarding s/sx of stroke. Both daughter and patient verbalized understanding of discharge instructions. Cleared by PT. Discharge home via WC with daughter in stable condition.
--- NOTE | 2020-05-07 12:36 | PT.IIE ---
Surgical History (Last Reviewed 05/07/20 @ 02:40 by YVONNE Rose) H/O: hysterectomy (Acute) Hip joint replacement status (Acute) History of aortic valve replacement (Acute ~2001) History of lumpectomy of right breast (Acute) Hx of bilateral cataract extraction (Acute) Hx of removal of cyst (Acute) Hx of tonsillectomy (Acute) S/P CABG x 1 (Acute ~2001) Medical History (Last Reviewed 05/07/20 @ 02:40 by YVONNE Rose) Atrial fibrillation (Acute) CAD (coronary artery disease) (Acute) Cardiomyopathy (Acute) GERD (gastroesophageal reflux disease) (Acute) Glucose intolerance (Acute) Hearing impaired (Acute) HLD (hyperlipidemia) (Acute) HTN (hypertension) (Acute) Hypothyroidism (Acute) LBBB (left bundle branch block) (Acute) Nonrheumatic aortic (valve) stenosis (Acute) Osteoarthritis (Acute) Osteoporosis (Acute) Panic disorder (Acute) RLS (restless legs syndrome) (Acute) Systolic heart failure (Acute) T12 compression fracture (Acute 06/04/12) Urinary incontinence (Acute) Vertigo (Acute) Physical Therapy Inpatient Evaluation/Re-Eval M1 PT/OT-IP Prior Functional Status Start: 05/07/20 08:23 Freq: NEEDED Status: Active Protocol: Document 05/07/20 11:21 DE (Rec: 05/07/20 11:41 DE [id number]) Medical Review Prior Functional Status Medical History Reviewed Yes Diet/Fluid Consistency Regular Communication WNL. No deficit noted. Able to make needs known. Mobility and Gait IND at baseline. Pt reports she was able to walk around independently inside the house and outside in the yard. Pt does not drive nor do grocery shopping. Her ambulation was mostly at home. Activities of Daily Living and IADL's Pt is IND with most ADLs except for when showering and getting up from the chair in the bathroom. Pt's daughter stands by for assist in the bathroom while pt independently showers sitting on the shower seat. Pt dries herself independently on another chair out of the shower. Pt needs assist from her daugher to stand up from the chair. Prior Functional Level (Other details) Pt reports she has adjustable bed at home. Pt's PMH include R PRIETO in September with complications that lead to I&D surgery after. Pt was discharged to SNF and returned to home and started HH since January and progressed to OP somewhere in March. Social History Household Members spouse,family,other Living Arrangements House Number of Floors (Floors) One Floor Number of Stairs To Enter/Railing? 0 LUBA but there is a threshold . Home Environment High Toilet,Walk in Shower Home Equipment Front Wheel Walker,Straight Cane,Manual Wheelchair,Shower Seat with Backrest,Hand Held Shower,Solar Applications Development Engineer,Grab Bars Near Toilet Employment Status Retired Additional Social History Comment Pt reports she lives withher , daughter, and son-in- law. This part of note is written by TK Olmstead and has reviewed and approved by Riana Vigil, PT M2 PT-IP Current Condition Start: 05/07/20 08:23 Freq: NEEDED Status: Active Protocol: Document 05/07/20 12:25 HH (Rec: 05/07/20 12:36 [id number]) Physical Therapy Current Condition Current Condition Evaluation Date 05/07/20 Treatment Diagnosis Possible TIA, AMS, expressive aphasia Onset Date 05/06/20 Weight Bearing Status Weight Bearing Status Full Weight Bearing M3 PT-IP Subjective Start: 05/07/20 08:23 Freq: NEEDED Status: Active Protocol: Document 05/07/20 12:25 HH (Rec: 05/07/20 12:36 [id number]) Subjective Physical Therapy Visit Type Type Initial Evaluation Visit Start Time 10:10 Visit Stop Time 10:44 Total Visit Minutes 34 Notes Dtr at bedside attended session. Co-tx with TK Gonsalves and OT CJ Number of SERVICE CENTER SPECIALIST Visits 0 Physical Therapy Visit Comments Patient Comments Dtr stated pt is completely normal with speech and cognition at this pointt Patient Goals Pt stated I feel ready to go home. Therapy Pain Assessment Pain Present Pain Present Denied Pain M4 PT-IP Mobility and Gait Start: 05/07/20 08:23 Freq: NEEDED Status: Active Protocol: Document 05/07/20 12:25 HH (Rec: 05/07/20 12:36 [id number]) PT-Bed Mobility Assessment Supine to Sit Supine to Sit Standby Assistance,Head of Bed Elevated Scooting Scooting to Edge of Bed Standby Assistance PT-Transfer Assessment Sit to and From Stand Sit to and from Stand Standby Assistance,1 Person Assistance,Use of Upper Extremities Equipment Transfer Assistive Device Gait Belt,Front Wheeled Walker Orthotic/Prosthetic Devices or Brace: No Transfers Transfer Destination Bed,Chair,Toilet Transfer Technique Stand Step Pivot Transfer Ability Level of Assist Standby Assistance,Use of Upper Extremities Comments Mobility Comments Pt was in bed upon PT arrival. BP at 131/74. AxO x 4 and no discomfort noted. Pt was able to give full detailed social hx. Pt agreed to mobilize with PT. Pt has adj bed at home so she sat up from elevated HOB SBA. Pt then scooted to EOB on R followed by standing up with SBA. Pt then walked to bathroom with OT and PT SBA with her baseline gait speed as dtr stated. She was able to step pivot to turn and stand unsupported to anuja/doff brief . Pt was able to complete pericare after and walked to sink counter for self care and returned to chair after. Pt stated she feels normal regarding mobility but did c/o slight lightheadiness but BP stays at 140/77. Pt felt better after sitting for a few minutes. call light placed within reach. Gait Assessment Gait Gait Assistance Required: Standby Assistance Distance (Feet) 10 Able to Maintain Weight Bearing Status No During Gait Assistive Devices Assistive Device Gait Belt,Front Wheeled Walker Orthotic/Prosthetic Devices or Brace: No Gait Deviations General Gait Pattern Decreased Stride Length, Decreased Feet Clearance Factors Limiting Gait Function Factors Limiting Gait Function Decreased Activity Tolerance, Decreased Strength Comments Gait Comments see mobility comments. Stair Climbing Assessment Comments Stair Climbing Comments pt was able to complete standing marhcing x 20 with light support on FWW. PT-Balance Assessment Sitting Balance and Reactions Static Sitting Balance Ability Normal Dynamic Sitting Balance Ability Normal Standing Balance and Reactions Static Standing Balance Ability Normal Dynamic Standing Balance Ability Good Device Used FWW M5 PT-IP Objective Assessments Start: 05/07/20 08:23 Freq: NEEDED Status: Active Protocol: Document 05/07/20 12:25 (Rec: 05/07/20 12:36 [id number]) Orientation Orientation/Cognition Level of Alertness Alert Orientation Name,Age,Birthday,Month,Date, Year,Day of Week,Place, Situation Language Function Ability No Deficits Noted Safety Awareness Understands Safety Issues Memory Description No Deficits Noted Gross Range of Motion Upper Extremity ROM Assessment Within Functional Limits Lower Extremity ROM Assessment Within Functional Limits Strength Upper Extremity Strength Assessment Within Functional Limits Lower Extremity Strength Assessment Within Functional Limits Coordination Assessment Gross Coordination Gross Coordination WNL Assessment Finger to Nose Test Normal Performance Pronation/Supination Test Normal Performance Foot Tapping Test Normal Performance Heel on [place] Test Normal Performance Sensation Assessment Sensation Gross Sensation WNL Muscle Tone Muscle Tone WNL Yes M6 PT-IP Treatment Start: 05/07/20 08:23 Freq: NEEDED Status: Active Protocol: Document 05/07/20 12:25 HH (Rec: 05/07/20 12:36 [id number]) Physical Therapy Treatment Education Education Provided Safety M7 PT-IP Assessment and Plan Start: 05/07/20 08:23 Freq: NEEDED Status: Active Protocol: Document 05/07/20 12:25 HH (Rec: 05/07/20 12:36 [id number]) PT Summary Assessment and Plan Potential Rehabilitation Potential Excellent Status of Condition at Evaluation Stable Summary Impairments Activity Tolerance Progress Towards Goals Safe For Discharge Assessment Summary This is an evaluation only for this 80yo female admitted to ER yesterday d/t AMS, possible TIA and expressive aphasia. Upon assessment, pt has no c/o and Pt is currently at her baseline for all mobility and so does ADLs whose dtr at bedside also agreed to it. Pt is safe to be d/c home with family assistance and cont her outpatient PT for her recent hip sx. Frequency of Treatment Frequency Of Treatment Discharge Discharge Recommendations PT Discharge Recommendations Home with Assistance, Outpatient PT Transportation Needs at Discharge Private Vehicle
--- NOTE | 2020-05-07 12:44 | CM.IDA ---
Initial DCP Assessment Note Patient is an 80 yo female, resident of [place]. Patient admitted for TIA r/o and has been discharged by Dr Kumar this morning. PCP: Kosta Cerda Payer: [facility] Reviewed chart, then met w/patient and her dtr. Patient has had a busy morning, seen by PT [place], Geological Engineering Teacher [place], Dr Kumar and this METAL BUFFER Patient here in September and DC to [facility] at that time. PT has cleared patient for return home, no HH needed at this time. patient's dtr and son in law now live w/patient and spouse and are primary caregivers. patient remains mostly indp in all ADLs P: DC home w/family is expected today, no needs anticipated from this METAL BUFFER will follow closely in case this changes SHANIKA Meneses
--- NOTE | 2020-05-07 13:10 | ST.IPSLE ---
Visit Care Team Role Provider Type Kosta Cerda MD Family Provider Non-Staff Specialty: Medical Address: [address] [place] [address], [id number] Email: Gaston Ryan MD Emergency Provider Physician Referring Provider Specialty: Emergency Medicine Address: [address] [place] [address], [id number] Email: [email or web address] Admit Provider Physician Attending Provider Specialty: Internal Medicine Address: [address] [place] [address], [id number] Email: [email or web address] Past Medical History (Last Reviewed 05/07/20 @ 02:40 by YVONNE Rose) Atrial fibrillation (Acute Medical) CAD (coronary artery disease) (Acute Medical) Cardiomyopathy (Acute Medical) GERD (gastroesophageal reflux disease) (Acute Medical) Glucose intolerance (Acute Medical) Hearing impaired (Acute Medical) Bilateral hearing aids HLD (hyperlipidemia) (Acute Medical) HTN (hypertension) (Acute Medical) Hypothyroidism (Acute Medical) LBBB (left bundle branch block) (Acute Medical) Nonrheumatic aortic (valve) stenosis (Acute Medical) Osteoarthritis (Acute Medical) Osteoporosis (Acute Medical) Panic disorder (Acute Medical) RLS (restless legs syndrome) (Acute Medical) Systolic heart failure (Acute Medical) T12 compression fracture (Acute Medical 06/04/12) T12 Kyphoplasty Urinary incontinence (Acute Medical) Vertigo (Acute Medical) Speech-Language Pathology Speech/Language Eval [employer] Adult Cognitive Linguistic Eval Start: 05/07/20 10:21 Freq: Status: Active Protocol: Document 05/07/20 10:23 LL (Rec: 05/07/20 10:29 LL [id number]) Adult Cognitive Linguistic Evaluation Session Time Visit Start Time 07:55 Visit Stop Time 08:28 Total Visit Minutes 33 Referral Referring Provider YVONNE Rose Reason for Referral Stroke protocol - hx of CVA Setting Assessment Location Acute Care Visit Type Note Type Initial evaluation Patient Information Identification Type Name,Wristband Medical History Per H&P, Glenys is an 80-year -old female who had an abrupt onset of cognitive impairment with confusion and perseveration that lasted approximately 90 minutes. Her symptoms fully resolved upon arrival to the ER. 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 Glenys was unaware of previous infarct and reports no residual numbness weakness or cognitive impairment. Language(s) Spoken in the Home Thai Education Level [employer] Occupation Status Retired - homemaker Hearing Hearing Level Hearing Aids Auditory History Hearing judged to have been within functional limits. Patient reported that she wears bilateral hearing aids at home. Vision Vision Status Impaired Comments Glasses Previous Therapy Previous Speech-Language Therapy No History of Therapy None reported by patient or daughterSharri. Subjective Patient Report Patient sitting upright in bed with daughterSharri present in the room. Patient alert and agreeable to participate in evaluation. Patient and Sharri denied any speech, language, swallowing, or cognitive changes besides upon patient's arrival to the ED on 05/06/2020. Pain Intensity 0 Pain Scale Used Numeric (0 - 10) Mental Status Alert,Responsive,Cooperative Assessment Results Informal assessment of oral motor function completed. Patient's oral motor function appeared WFL during conversation and intake of PO. Swallow function observed and appeared WFL. Patient denied swallowing difficulty and no overt s/sx of aspiration was observed. Informal Assessment Receptive Language Normal Yes Expressive Language Normal Yes: no anomia observed. able to express wants/needs independently. Pragmatic Language Normal Yes Speech Normal Yes: no dysarthria or apraxia of speech observed. Cognition Normal Yes Formal Assessment Standardized Test/Screener Type [facility] ([facility]) Administration Complete Results Patient scored 29/30 which is deemed WFL. Sharri reported that patient presented with significant short-term memory difficulty upon arrival to the ER but symptoms have since resolved. Patient scored 4/5 on short-term memory / delayed recall subtest (e.g., remembering 5 objects). Findings/Results Language Function Within normal limits Cognitive Function Within normal limits Findings Language and cognition appeared WFL. Prognosis Prognosis Good Based on Cognitive status,Family support Plan of Care Speech-Language Treatment No Patient/Caregiver Education Described results of evaluation,Patient expressed understanding of evaluation, Family/caregivers expressed understanding of evaluation Discharge Recommendations Home
== END 2020-05-07 13:24 | disposition home or self-care (01) ==
LOC: ED 20:34 → AC 20:48
PROVIDERS: Admitting Provider Nurse Practitioner Adult Health; Emergency Provider Emergency Medicine; Family Provider Family Medicine; Referring Provider Emergency Medicine; Visit Provider Nurse Practitioner Adult Health
DX: R41.0 Disorientation, unspecified (principal); I25.10 Atherosclerotic heart disease of native coronary artery without angina pectoris; Z95.1 Presence of aortocoronary bypass graft; I44.7 Left bundle-branch block, unspecified; Z79.01 Long term (current) use of anticoagulants; E78.5 Hyperlipidemia, unspecified; E03.9 Hypothyroidism, unspecified; E66.01 Morbid (severe) obesity due to excess calories; I48.0 Paroxysmal atrial fibrillation; I50.22 Chronic systolic (congestive) heart failure; Z11.59 Encounter for screening for other viral diseases
CPT/HCPCS: 36415; 70450; 70496; 70498; 80048; 80053; 80061; 82550; 82962; 83036; 83735; 84439; 84443; 84484; 85025; 85610; 85730; 87635; 90471; 90662; 92523; 93005; 93880; 96360; 97161; 97165; 97530; 97535; 99284; 99285; G0378; Q9967

== ENCOUNTER → 2020-07-08 12:48 | Outpatient (CLI) | payer MEDICARE, OTHER, SELFPAY ==
[2020-05-06 21:16] VITALS: BMI 39.0
[2020-07-08 16:51] LABS: COVID19 -Nasal RAPID Negative (Negative)
== END ==
PROVIDERS: Family Provider Family Medicine; PCP Internal Medicine; Referring Provider Internal Medicine; Visit Provider Internal Medicine
DX: Z11.59 Encounter for screening for other viral diseases (principal)
CPT/HCPCS: 87635; C9803

== ENCOUNTER → 2020-07-09 08:31 | Outpatient (CLI) | payer MEDICARE, OTHER, SELFPAY ==
[2020-05-06 21:16] VITALS: BMI 39.0
--- NOTE | 2020-07-16 16:22 | P.PFT.S_ITS ---
Pulmonary Function Test Referral & Results Date Patient Seen: 07/09/20 Requesting provider: Major Allen Results: The spirometry demonstrates an FVC of 1.8 L which is 76% of predicted. The FEV1 was measured at 1.34 L which is 73% of predicted. The FEV1/FVC ratio was 71 which is 96% of predicted. Following the administration of bronchodilator there was 21% improvement in FEV1 and a 104% improvement in FEF 25-75%. Lung volumes show an SVC of 1.94 L which is 76% of predicted. The diffusing capacity was measured at 16.41 which is 71% of predicted. No hemoglobin value was provided, so no correction for potential anemia could be made, if appropriate. The maximum voluntary ventilation was reduced Interpretation: This study demonstrates possible mild obstructive lung disease based on reduc tion FEV1 although FEV1/FVC ratio is normal the flow volume loop also is consistent with mild obstructive lung disease. There is also significant benefit following bronchodilator as above There is a mild reduction in lung volumes based on SVC suggesting minimal restrictive lung disease There is also [id number] reduction in diffusing capacity suggesting element of disease at the capillary alveolar level Clinical correlation suggested
== END ==
PROVIDERS: Family Provider Family Medicine; Referring Provider Internal Medicine Hematology & Oncology; Visit Provider Internal Medicine Hematology & Oncology
DX: Z51.81 Encounter for therapeutic drug level monitoring (principal); Z79.899 Other long term (current) drug therapy; J98.8 Other specified respiratory disorders
CPT/HCPCS: 94060; 94726; 94729

== ENCOUNTER 2022-08-05 09:21 | Observation (INO) | payer MEDICARE, OTHER, SELFPAY ==
[2020-05-06 21:16] VITALS: BMI 39.0
[2022-08-05] VITALS (25 sets, daily range): BP systolic 97–143; BP diastolic 47–71; PULSE 68–89; RESP 15–22; TEMP 36.1–36.3; O2SAT 88–100; BMI 45.8
--- NOTE | 2022-08-05 10:00 | ED_ITS ---
HPI - GI Bleed General Chief complaint: Abdominal Pain Stated complaint: clots from rectum/takes thinners/ ABD pain/ T-2 Time Seen by Provider: 08/05/22 09:45 Source: patient and family Mode of arrival: Wheelchair History of Present Illness HPI Narrative: Patient is a 82-year-old female history of mechanical valve and atrial fibrillation on warfarin and amiodarone presenting today with rectal bleeding. She reports constipation earlier in the week then had excessive diarrhea which point she reported some blood. She continued to have some diarrhea she took Imodium then this morning she felt cramping and thought she was going to have diarrhea again in the toilet was full of blood. She knows that she has some hemorrhoids however she is bleeding quite a bit. She is having some abdominal cramping. Generalized weakness. No dizziness lightheadedness or passing out. She does not report any chest pain or palpitations. She says she is not taken her morning medications including amiodarone and metoprolol. Related Data Home Medications Medication Instructions Recorded Confirmed diphenhydramine HCl 25 mg capsule 25 mg PO BEDTIME PRN Seasonal 06/17/1202/18 allergies ##0 acetaminophen 500 mg tablet 500 mg PO Q8HP PRN Pain ##0 06/18/12 08/05/22 (Tylenol Extra Strength) calcium carbonate 600 mg-vitamin 1 tab PO BID 09/03/19 08/05/22 D3 20 mcg (800 unit) chewable tablet (Caltrate 600 plus D) cyclobenzaprine 10 mg tablet 10 mg PO Q6-8H PRN Muscle Spasm 09/03/19 08/05/22 ezetimibe 10 mg tablet (Zetia) 10 mg PO BEDTIME 09/03/19 08/05/22 levothyroxine 125 mcg tablet 125 mcg PO SEEINSTR 09/03/19 08/05/22 (Synthroid) omeprazole 40 mg capsule,delayed 40 mg PO BEDTIME 09/03/19 08/05/22 release pramipexole 0.25 mg tablet 0.75 mg PO BEDTIME PRN RLS 09/03/19 08/05/22 rosuvastatin 40 mg tablet (Crestor) 40 mg PO BEDTIME 09/03/19 08/05/22 trospium 60 mg capsule,extended 50 mg PO BEDTIME 09/03/19 08/05/22 release 24 hr warfarin 2.5 mg tablet 2.5 mg PO DAILY 09/03/19 08/05/22 ascorbic acid (vitamin C) 500 mg 1,000 mg PO DAILY 10/17/19 08/05/22 tablet (Vitamin C) amiodarone 200 mg tablet 200 mg PO DAILY 05/06/20 08/05/22 aspirin 81 mg tablet,delayed 81 mg PO DAILY 05/06/20 08/05/22 release (Saranya Low Dose Aspirin) metoprolol tartrate 25 mg tablet See Rx Instructions .Route .COMPLEX 05/06/20 08/05/22 vitamin B complex (B-Complex 1 tab PO DAILY 05/06/20 08/05/22 tablet) vitamin E 268 mg (400 unit) capsule 400 unit PO DAILY 05/06/20 08/05/22 methocarbamol 500 mg tablet 500 mg PO BEDTIME PRN Spasms 08/05/22 08/05/22 Previous Rx's Medication Instructions Recorded tramadol 50 mg tablet 100 mg PO Q8HP PRN Pain #10 tabs 10/20/19 Allergies Allergy/AdvReac Type Severity Reaction Status Date / Time latex Allergy Intermediate ITCHING Verified 08/05/22 10:08 acetaminophen [From Vicodin] AdvReac Agitated Verified 08/05/22 10:08 hydrocodone [From Vicodin] AdvReac Agitated Verified 08/05/22 10:08 oxycodone AdvReac Confusion Verified 08/05/22 10:08 Patient History Medical History (Updated 08/05/22 @ 17:39 by Flaca Ocampo RN) Atrial fibrillation CAD (coronary artery disease) Cardiomyopathy GERD (gastroesophageal reflux disease) Glucose intolerance Hearing impaired HLD (hyperlipidemia) HTN (hypertension) Hypothyroidism LBBB (left bundle branch block) Nonrheumatic aortic (valve) stenosis Osteoarthritis Osteoporosis Panic disorder RLS (restless legs syndrome) Systolic heart failure T12 compression fracture (06/04/12) Urinary incontinence Vertigo Surgical History H/O: hysterectomy Hip joint replacement status History of aortic valve replacement (~2001) History of lumpectomy of right breast Hx of bilateral cataract extraction Hx of removal of cyst Hx of tonsillectomy S/P CABG x 1 (~2001) Family History (Updated 05/07/20 @ 02:41 by YVONNE Rose) Father Diabetes mellitus Chronic kidney disease Heart disease Mother Cancer Social History household members: family and other Smoking Status: Never smoker alcohol intake: never Smoking Status: Never smoker alcohol intake frequency: holidays/special occasions only Substance Use Type: does not use Exam Initial Vital Signs Initial Vital Signs: Vital Signs Temperature 97.4 F L 08/05/22 09:32 Pulse Rate 89 08/05/22 09:32 Respiratory Rate 18 08/05/22 09:32 Blood Pressure 143/66 H 08/05/22 09:32 Pulse Oximetry 96 08/05/22 09:32 Oxygen Delivery Method 08/05/22 09:32 GENERAL: Alert pleasant 82-year-old female and in no acute distress. HEENT: Head atraumatic,EOMI, pupils reactive, face symmetric, moist mucous membranes CARDIOVASCULAR: Regular rate and rhythm without murmurs, rubs or gallops. RESPIRATORY: Breath sounds equal bilaterally, no wheezes rales or rhonchi. ABDOMEN: Soft, nontender. Normoactive bowel sounds all 4 quadrants. No guarding or rebound. RECTAL: Grossly positive : No CVA tenderness EXTREMITIES: Normal range of motion, no clubbing or edema. Neurovascularly intact NEUROLOGICAL: Alert and oriented x4.Normal gait and speech. SKIN: Warm, dry, no laceration, no petechiae, no rashes or lesions. Course Orders Ordered: ED Orders 08/05/22 09:50 Complete Blood Count AUTO DIFF Stat Comprehensive Metabolic Panel Stat Lactate (Lactic Acid) Stat Lipase Stat Partial Thromboplastin Time Stat Prothrombin Time INR Stat Troponin & CK Cardiac Panel Stat 08/05/22 10:03 CT abdomen pelvis w con Stat 08/05/22 10:06 EKG-12 Lead Stat 08/05/22 10:25 COVID19 -Nasal RAPID/Pre-Proc Stat 08/05/22 15:23 Hemoglobin and Hematocrit Stat Lactate (Lactic Acid) Stat 08/05/22 17:00 CBC No Diff [Complete Blood Count NO DIFF] Stat 08/06/22 CBC Auto Diff [Complete Blood Count AUTO DIFF] Routine Comprehensive Metabolic Panel Routine Acetaminophen (Acetaminophen 325 Mg Tablet) 325 mg PO Q8H PRN PRN Reason: Pain Amiodarone HCl (Amiodarone 200 Mg Tablet) 200 mg PO DAILY MARCELLUS Ascorbic Acid (Ascorbic Acid 500 Mg Tablet) 1,000 mg PO DAILY [facility] Atorvastatin Calcium (Atorvastatin 20 Mg Tablet) 80 mg PO BEDTIME [facility] Calcium Carbonate (Calcium Carbonate 600 Mg Tablet) 600 mg PO DAILY [facility] Cyclobenzaprine HCl (Cyclobenzaprine 10 Mg Tablet) 10 mg PO Q6H PRN PRN Reason: Muscle Spasm Diphenhydramine HCl (Diphenhydramine 25 Mg Tablet) 25 mg PO BEDTIME PRN PRN Reason: Seasonal allergies Ezetimibe (Ezetimibe 10 Mg Tablet) 10 mg PO BEDTIME [facility] Levothyroxine Sodium (Levothyroxine 125 Mcg Tablet) 125 mcg PO MoTuWeThFrSa@0600 [facility] Levothyroxine Sodium (Levothyroxine 125 Mcg Tablet) 250 mcg PO Avery@0600 [facility] Melatonin (Melatonin 3 Mg Tablet) 3 mg PO BEDTIME [facility] Methocarbamol (Methocarbamol 500 Mg Tablet) 500 mg PO BEDTIME PRN PRN Reason: Spasms Metoprolol Tartrate (Metoprolol Ir 25 Mg Tablet) 25 mg PO BEDTIME [facility] Metoprolol Tartrate (Metoprolol Ir 50 Mg Tablet) 50 mg PO DAILY [facility] Ondansetron HCl (Ondansetron 4 Mg Odt) 4 mg SL Q6HR PRN PRN Reason: Nausea Ondansetron HCl (Ondansetron 4 Mg/2 Ml Inj) 4 mg IV Q6HR PRN PRN Reason: Nausea And Vomiting Oxybutynin Chloride (Oxybutynin 5 Mg Er Tab) 10 mg PO BEDTIME [facility] Pantoprazole Sodium (Pantoprazole 40 Mg Vial) 40 mg IV BID [facility] Stop: 08/08/22 09:01 Pantoprazole Sodium (Pantoprazole Dr 40 Mg Tablet) 40 mg PO 0700 [facility] Pramipexole Dihydrochloride (Pramipexole 0.25 Mg Tablet) 0.75 mg PO BEDTIME PRN PRN Reason: RLS Tramadol HCl (Tramadol 50 Mg Tablet) 100 mg PO Q8H PRN PRN Reason: Pain Vitamin D (Cholecalciferol (Vitamin D3) 1,000 Unit Tablet) 1,000 unit PO BID [facility] Vitamin E (Vitamin E 400 Unit Capsule) 400 unit PO DAILY [facility] Discontinued Medications Amiodarone HCl (Amiodarone 200 Mg Tablet) 200 mg PO NOW ONE Stop: 08/05/22 13:24 Last Admin: 08/05/22 13:34 Dose: 200 mg Documented By: JORGE Metoprolol Tartrate (Metoprolol Ir 25 Mg Tablet) 50 mg PO NOW ONE Stop: 08/05/22 13:25 Last Admin: 08/05/22 13:33 Dose: 50 mg Documented By: JORGE Pantoprazole Sodium (Pantoprazole 40 Mg Vial) 80 mg IV NOW ONE Stop: 08/05/22 10:04 Last Admin: 08/05/22 10:14 Dose: 80 mg Documented By: ANTHONY Pantoprazole Sodium (Pantoprazole Dr 20 Mg Tablet) 20 mg PO DAILY MARCELLUS Phytonadione (Phytonadione (Vit K1) 5 Mg Tablet) 5 mg PO NOW ONE Stop: 08/05/22 13:19 Last Admin: 08/05/22 13:33 Dose: 5 mg Documented By: JORGE Vital Signs Vital signs: Vital Signs - 8 hr 08/05/22 11:00 08/05/22 11:26 08/05/22 11:26 Pulse Rate 79 79 Respiratory Rate 15 22 Blood Pressure 122/56 L Pulse Oximetry 93 99 Oxygen Delivery Method Room Air Room Air 08/05/22 11:30 08/05/22 11:30 08/05/22 12:00 Pulse Rate 79 Respiratory Rate 22 Blood Pressure 109/53 L 107/56 L Pulse Oximetry 97 Oxygen Delivery Method Room Air 08/05/22 12:00 08/05/22 12:30 08/05/22 12:30 Pulse Rate 80 79 Respiratory Rate 21 16 Blood Pressure 114/53 L Pulse Oximetry 98 98 Oxygen Delivery Method Room Air Room Air 08/05/22 13:00 08/05/22 13:00 08/05/22 13:30 Pulse Rate 81 81 Respiratory Rate 19 19 Blood Pressure 130/58 L Pulse Oximetry 97 98 Oxygen Delivery Method Room Air Room Air 08/05/22 13:31 08/05/22 13:31 08/05/22 14:00 Pulse Rate 83 83 Respiratory Rate 17 20 Blood Pressure 124/58 L Pulse Oximetry 98 98 Oxygen Delivery Method Room Air Room Air 08/05/22 14:01 08/05/22 14:01 08/05/22 14:30 Pulse Rate 81 Respiratory Rate 18 Blood Pressure 108/71 106/53 L Pulse Oximetry 98 Oxygen Delivery Method Room Air 08/05/22 14:30 08/05/22 15:00 08/05/22 15:00 Pulse Rate 78 79 Respiratory Rate 16 16 Blood Pressure 115/57 L Pulse Oximetry 97 99 Oxygen Delivery Method Room Air Room Air 08/05/22 15:30 08/05/22 15:31 08/05/22 15:31 Pulse Rate 76 75 Respiratory Rate 16 17 Blood Pressure 97/54 L Pulse Oximetry 97 97 Oxygen Delivery Method Room Air Room Air MDM - GI Bleed Lab Data Result diagrams: 08/05/22 15:23 08/05/22 09:50 Labs: Lab Results 08/05/22 08/05/22 08/05/22 Range/Units 09:50 09:50 09:50 WBC 8.0 (4.5-11.0) X10^3/uL RBC 2.97 L (4.0-5.2) X10^6/uL Hgb 9.7 L (12.0-16.0) g/dL Hct 28.6 L (36-46) % MCV 96.6 (80-100) fL MCH 32.6 (26-34) PG MCHC 33.7 (30-36) % RDW 15.3 H (11.6-14.8) % Plt Count 214 (150-400) X10^3/uL Neut % (Auto) 84.3 H (50-75) % Lymph % (Auto) 10.3 L (25-40) % [place] % (Auto) 4.5 (3-14) % Eos % (Auto) 0.6 L (2-4) % Baso % (Auto) 0.3 (0-2) % Neut # (Auto) 6800 (2657-3823) /uL Lymph # (Auto) 800 L (7575-1585) /uL [place] # (Auto) 400 (0-900) /uL Eos # (Auto) 0 (0-450) /uL Baso # (Auto) 0 (0-100) /uL PT 52.3 H (10.1-12.7) SECONDS INR 4.5 H (0.9-1.3) APTT 41 H (26-36) SECONDS Sodium 133 L (137-145) mmol/L Potassium 3.9 (3.4-5.1) mmol/L Chloride 97 L (98-107) mmol/L Carbon Dioxide 28 (22-32) mmol/L BUN 20 H (7-17) mg/dL Creatinine 0.73 (0.52-1.04) mg/dL Estimated GFR > 60 (>60) mL/min BUN/Creatinine Ratio 27.4 H (6-22) Glucose 124 H (80-110) mg/dL Lactate (0.7-2.1) mmol/L Calcium 8.0 L (8.4-10.2) mg/dL Total Bilirubin 0.4 (0.2-1.3) mg/dL AST 34 (14-36) IU/L ALT 21 (<35) IU/L Alkaline Phosphatase 45 (38-126) U/L Total Creatine Kinase 42 (30-135) U/L CK-MB (CK-2) TNP CK-MB (CK-2) Rel Index TNP Troponin I 0.014 (0.01-0.034) ng/mL Total Protein 6.6 (6.3-8.2) g/dL Albumin 3.4 L (3.5-5.0) g/dL Globulin 3.2 (1.7-4.1) g/dL Albumin/Globulin Ratio 1.1 (1.0-2.8) Lipase 42 (23-300) U/L SARS-CoV-2 (PCR) (Negative) 08/05/22 08/05/22 08/05/22 Range/Units 09:50 10:25 15:23 WBC (4.5-11.0) X10^3/uL RBC (4.0-5.2) X10^6/uL Hgb 9.7 L (12.0-16.0) g/dL Hct 28.8 L (36-46) % MCV (80-100) fL MCH (26-34) PG MCHC (30-36) % RDW (11.6-14.8) % Plt Count (150-400) X10^3/uL Neut % (Auto) (50-75) % Lymph % (Auto) (25-40) % [place] % (Auto) (3-14) % Eos % (Auto) (2-4) % Baso % (Auto) (0-2) % Neut # (Auto) (5409-5368) /uL Lymph # (Auto) (9333-0659) /uL [place] # (Auto) (0-900) /uL Eos # (Auto) (0-450) /uL Baso # (Auto) (0-100) /uL PT (10.1-12.7) SECONDS INR (0.9-1.3) APTT (26-36) SECONDS Sodium (137-145) mmol/L Potassium (3.4-5.1) mmol/L Chloride (98-107) mmol/L Carbon Dioxide (22-32) mmol/L BUN (7-17) mg/dL Creatinine (0.52-1.04) mg/dL Estimated GFR (>60) mL/min BUN/Creatinine Ratio (6-22) Glucose (80-110) mg/dL Lactate 1.4 (0.7-2.1) mmol/L Calcium (8.4-10.2) mg/dL Total Bilirubin (0.2-1.3) mg/dL AST (14-36) IU/L ALT (<35) IU/L Alkaline Phosphatase (38-126) U/L Total Creatine Kinase (30-135) U/L CK-MB (CK-2) CK-MB (CK-2) Rel Index Troponin I (0.01-0.034) ng/mL Total Protein (6.3-8.2) g/dL Albumin (3.5-5.0) g/dL Globulin (1.7-4.1) g/dL Albumin/Globulin Ratio (1.0-2.8) Lipase (23-300) U/L SARS-CoV-2 (PCR) Negative (Negative) 08/05/22 Range/Units 15:23 WBC (4.5-11.0) X10^3/uL RBC (4.0-5.2) X10^6/uL Hgb (12.0-16.0) g/dL Hct (36-46) % MCV (80-100) fL MCH (26-34) PG MCHC (30-36) % RDW (11.6-14.8) % Plt Count (150-400) X10^3/uL Neut % (Auto) (50-75) % Lymph % (Auto) (25-40) % [place] % (Auto) (3-14) % Eos % (Auto) (2-4) % Baso % (Auto) (0-2) % Neut # (Auto) (6299-9008) /uL Lymph # (Auto) (0229-8003) /uL [place] # (Auto) (0-900) /uL Eos # (Auto) (0-450) /uL Baso # (Auto) (0-100) /uL PT (10.1-12.7) SECONDS INR (0.9-1.3) APTT (26-36) SECONDS Sodium (137-145) mmol/L Potassium (3.4-5.1) mmol/L Chloride (98-107) mmol/L Carbon Dioxide (22-32) mmol/L BUN (7-17) mg/dL Creatinine (0.52-1.04) mg/dL Estimated GFR (>60) mL/min BUN/Creatinine Ratio (6-22) Glucose (80-110) mg/dL Lactate 0.9 (0.7-2.1) mmol/L Calcium (8.4-10.2) mg/dL Total Bilirubin (0.2-1.3) mg/dL AST (14-36) IU/L ALT (<35) IU/L Alkaline Phosphatase (38-126) U/L Total Creatine Kinase (30-135) U/L CK-MB (CK-2) CK-MB (CK-2) Rel Index Troponin I (0.01-0.034) ng/mL Total Protein (6.3-8.2) g/dL Albumin (3.5-5.0) g/dL Globulin (1.7-4.1) g/dL Albumin/Globulin Ratio (1.0-2.8) Lipase (23-300) U/L SARS-CoV-2 (PCR) (Negative) Imaging Data CT scan - abdomen/pelvis: Radiologist's Impression: CT Scan Report Signed Patient: Glenys Munoz MR#: [id number] : 1940 Acct:[id number] Age/Sex: 82 / F Date of Service: 08/05/22 Loc: ED Accession Number: [id number] ?? Procedure: CT abdomen pelvis w con Ordering Provider: Jud Mccoy D.O. PROCEDURE:? CT ABDOMEN PELVIS W CON ? INDICATIONS:? GI bleed with pain ? TECHNIQUE:? After the administration of intravenous contrast, axial sections acquired from the lung bases to the pubic symphysis.? Coronal and sagittal reformats were performed.? For radiation dose reduction, the following was used:? automated exposure control, adjustment of mA and/or kV according to patient size.? ? COMPARISON:? [facility], CT, CT ANGIO CHEST PE, 11/17/2019, 15:47. ? FINDINGS: ? Lower thorax:? Midline sternal wires present.? Dense annular mitral valve calcification.? Heart size within normal limits.? No hiatal hernia. ? Liver:? Branching gaseous structures in the peripheral left hepatic lobe, probably reflects portal venous gas.? Small hepatic cysts noted ? Biliary system:? Cholelithiasis layers dependently in the gallbladder without pericholecystic inflammatory change. ? Pancreas:? Unremarkable without mass or inflammation evident. ? Spleen:? Normal in size and density. ? Adrenals:? Normal morphology and density. ? Reproductive system:? Unremarkable as visualized. ? Urinary system:? Normal renal size and attenuation. No renal calculi, hydronephrosis, or solid mass present.? Urinary bladder unremarkable. ? Gastrointestinal system:? Loop of small bowel in the left flank shows wall thickening and perienteric inflammatory change.? No obstruction or pneumatosis present.? Remainder of the large and small bowel unremarkable. ? Appendix:? No findings to suggest acute appendicitis. ? Peritoneal spaces:? No mesenteric or retroperitoneal adenopathy.? No free air.? No free fluid.? ? Vasculature:? Aortic atherosclerotic vascular calcification noted without evidence of aneurysm. ? Abdominal wall:? Abdominal wall intact without evidence of ventral or inguinal hernias. ? Musculoskeletal:? T11 and T12 wedge-shaped compression fractures are stable from prior.? No lytic or blastic lesion.? Right hip prosthesis limits assessment of several images in the pelvis. ? IMPRESSION: ? Focally inflamed left-sided small bowel loop with wall thickening and perienteric edema.? No mural pneumatosis, however, probable intrahepatic portal venous gas raises the possibility of ischemic bowel.? Differential would include infectious or inflammatory small bowel without obstruction. ? Cholelithiasis without CT evidence of acute cholecystitis.? Paragraphs stable T11 and T12 compression fractures ? ? ? Approved by: Darren Lang M.D. on 08/05/2022 at 11:00? ECG Data Interpretation: Left bundle-branch block sinus rhythm rate 81 WV interval 192 QRS 168 bigeminy [facility] Narrative Medical decision making narrative: Patient 82-year-old female history of atrial fibrillation on amiodarone and metoprolol along with warfarin and a mechanical valve presents today with rectal bleeding. He has gross blood on exam. She is hemodynamically stable not tachycardic or hypotensive. Hemoglobin today is 9.7 with hematocrit 28.6 with a lactate of 1.4. She has mild tenderness in her abdomen was complaining of c ramping but overall abdomen is very soft and nondistended. CT does show questionable portal venous gas and possible ischemic colitis. However abdomen is very soft. Multiple attempts to call the surgeon, Dr. Cordova, we eventually did get in touch with her she was in the OR she came down to see and evaluate and speak with patient. At this time agrees with admission to the hospitalist and she will follow along. At this time no need for emergent surgery. She is given Protonix [address] Kelley accepts patient Discharge Plan Departure Patient Disposition: Admitted as Observation Clinical Impression: Acute GI bleeding, Ischemic colitis Admit Date/Time: 08/05/22 15:50 Admit Provider: Flaca Beard
--- NOTE | 2022-08-05 10:03 | DI.CT.S_ITS ---
PROCEDURE: CT ABDOMEN PELVIS W CON INDICATIONS: GI bleed with pain TECHNIQUE: After the administration of intravenous contrast, axial sections acquired from the lung bases to the pubic symphysis. Coronal and sagittal reformats were performed. For radiation dose reduction, the following was used: automated exposure control, adjustment of mA and/or kV according to patient size. COMPARISON: [facility], CT, CT ANGIO CHEST PE, 11/17/2019, 15:47. FINDINGS: Lower thorax: Midline sternal wires present. Dense annular mitral valve calcification. Heart size within normal limits. No hiatal hernia. Liver: Branching gaseous structures in the peripheral left hepatic lobe, probably reflects portal venous gas. Small hepatic cysts noted Biliary system: Cholelithiasis layers dependently in the gallbladder without pericholecystic inflammatory change. Pancreas: Unremarkable without mass or inflammation evident. Spleen: Normal in size and density. Adrenals: Normal morphology and density. Reproductive system: Unremarkable as visualized. Urinary system: Normal renal size and attenuation. No renal calculi, hydronephrosis, or solid mass present. Urinary bladder unremarkable. Gastrointestinal system: Loop of small bowel in the left flank shows wall thickening and perienteric inflammatory change. No obstruction or pneumatosis present. Remainder of the large and small bowel unremarkable. Appendix: No findings to suggest acute appendicitis. Peritoneal spaces: No mesenteric or retroperitoneal adenopathy. No free air. No free fluid. Vasculature: Aortic atherosclerotic vascular calcification noted without evidence of aneurysm. Abdominal wall: Abdominal wall intact without evidence of ventral or inguinal hernias. Musculoskeletal: T11 and T12 wedge-shaped compression fractures are stable from prior. No lytic or blastic lesion. Right hip prosthesis limits assessment of several images in the pelvis. IMPRESSION: Focally inflamed left-sided small bowel loop with wall thickening and perienteric edema. No mural pneumatosis, however, probable intrahepatic portal venous gas raises the possibility of ischemic bowel. Differential would include infectious or inflammatory small bowel without obstruction. Cholelithiasis without CT evidence of acute cholecystitis. Paragraphs stable T11 and T12 compression fractures Approved by: Darren Lang M.D. on 08/05/2022 at 11:00
[2022-08-05 10:14] LABS: Add Manual Diff / Slide Review NO; Basophils Absolute Auto 0 /uL (0-100); Basophils Percent Auto 0.3 % (0-2); Eosinophils Absolute Auto 0 /uL (0-450); Eosinophils Percent Auto 0.6 % (2-4); Hematocrit 28.6 % (36-46); Hemoglobin 9.7 g/dL (12.0-16.0); Lymphocytes Absolute Auto 800 /uL (1100-4500); Lymphocytes Percent Auto 10.3 % (25-40); Mean Corpuscular HGB Conc 33.7 % (30-36); Mean Corpuscular Hemoglobin 32.6 PG (26-34); Mean Corpuscular Volume 96.6 fL (80-100); Monocytes Absolute Auto 400 /uL (0-900); Monocytes Percent Auto 4.5 % (3-14); Neutrophils Absolute Auto 6800 /uL (1500-7000); Neutrophils Percent Auto 84.3 % (50-75); Platelet Count 214 X10^3/uL (150-400); Red Blood Cell Count 2.97 X10^6/uL (4.0-5.2); Red Cell Distribution Width 15.3 % (11.6-14.8)
[2022-08-05] MEDS: PANTOPRAZOLE 40 MG VIAL 80 MG IV (10:14)
[2022-08-05 10:17] LABS: Lactate (Lactic Acid) 1.4 mmol/L (0.7-2.1); PTT Partial Thromboplastin Tim 41 SECONDS (26-36)
[2022-08-05 10:18] LABS: Alanine Aminotransferase 21 IU/L (<35); Albumin 3.4 g/dL (3.5-5.0); Albumin Globulin Ratio 1.1 (1.0-2.8); Alkaline Phosphatase 45 U/L (38-126); Aspartate Aminotransferase 34 IU/L (14-36); BUN Creatinine Ratio 27.4 (6-22); Bilirubin Total 0.4 mg/dL (0.2-1.3); Blood Urea Nitrogen 20 mg/dL (7-17); Carbon Dioxide 28 mmol/L (22-32); Chloride 97 mmol/L (98-107); Creatine Kinase 42 U/L (30-135); Estimated Glomerular Filt Rate > 60 mL/min (>60); Globulin 3.2 g/dL (1.7-4.1); Glucose 124 mg/dL (80-110); HEMOLYSIS < 15 (0-50); Lipase 42 U/L (23-300); Potassium 3.9 mmol/L (3.4-5.1); Sodium 133 mmol/L (137-145); Total Protein 6.6 g/dL (6.3-8.2)
[2022-08-05 10:29] LABS: Troponin I 0.014 ng/mL (0.01-0.034)
[2022-08-05 10:30] LABS: INR 4.5 (0.9-1.3); Prothrombin Time 52.3 SECONDS (10.1-12.7)
[2022-08-05 10:51] LABS: COVID19 -Nasal RAPID Negative (Negative)
[2022-08-05] MEDS: PHYTONADIONE (VIT K1) 5 MG TABLET PO (13:33)
[2022-08-05] MEDS: METOPROLOL IR 25 MG TABLET 50 MG PO (13:33)
[2022-08-05] MEDS: AMIODARONE 200 MG TABLET PO (13:34)
--- NOTE | 2022-08-05 15:29 | P.CONS_ITS ---
History of Present Illness Consult details Date Patient Seen: 08/05/22 Time Patient Seen: 14:00 Chief complaint: clots from rectum/takes thinners/ ABD pain/ T-2 Reason for consult: GI bleed, concern for ischemia based on CT. Requesting provider: Jud Mccoy Narrative: Ms. Munoz states that she was in her normal state of health until night (2 nights ago). At that time she began to feel that she was constipated. She then had an explosion of diarrhea and felt that the stool had been blown out. She felt a lot of pressure and noted blood in her stool at that time. The blood was red and on her stool and in the toilet. It also soaked her toilet paper. The bleeding stopped but began again this morning. Today she was awakened from sleep with severe upper abdominal pain that she described as pressure or tightness This pain then moved around and down into her lower abdomen and she passed a bowel movement with clots in it and clots on the toilet paper. She had a sharp pain across her abdomen that she said was as severe as an 8 out of ten, but this has since subsided and at this time she says she has no pain and that it feels like all the gas has gone. She does endores feeling lightheaded, dizzy and weak over the last few days. She however denies chest pain, shortness of breath or palpitations. She took imodium today and apparently takes it quite frequently. She has never had a colonoscopy. She was told that because of her mechanical heart valve and need to always stay on anticoagulation, that this was a contraindication to colonoscopy. She has had surgery before. She had a hip replacement and was bridged with probably Lovenox for that and did well. She has had a vaginal hysterectomy in 1973 but no other abdominal surgeries. She has not thought about whether she would, at her age, in an emergent setting, like to have surgery to potentially save her life. She is worried that the outcome of a surgery wouldn't be great. At this time, her daughters say that she would proceed with surgery under the circumstances, but she herself is not totally clear about her wishes. Meds Home Medications and Allergies Home Medications Medication Instructions Recorded Confirmed Type diphenhydramine HCl 25 mg capsule 25 mg PO BEDTIME PRN Seasonal 06/17/12 08/05/22 History allergies ##0 acetaminophen 500 mg tablet 500 mg PO Q8HP PRN Pain ##0 06/18/12 08/05/22 History (Tylenol Extra Strength) calcium carbonate 600 mg-vitamin 1 tab PO BID 09/03/19 08/05/22 History D3 20 mcg (800 unit) chewable tablet (Caltrate 600 plus D) cyclobenzaprine 10 mg tablet 10 mg PO Q6-8H PRN Muscle Spasm 09/03/19 08/05/22 History ezetimibe 10 mg tablet (Zetia) 10 mg PO BEDTIME 09/03/19 08/05/22 History levothyroxine 125 mcg tablet 125 mcg PO SEEINSTR 09/03/19 08/05/22 History (Synthroid) omeprazole 40 mg capsule,delayed 40 mg PO BEDTIME 09/03/19 08/05/22 History release pramipexole 0.25 mg tablet 0.75 mg PO BEDTIME PRN RLS 09/03/19 08/05/22 History rosuvastatin 40 mg tablet (Crestor) 40 mg PO BEDTIME 09/03/19 08/05/22 History trospium 60 mg capsule,extended 50 mg PO BEDTIME 09/03/19 08/05/22 History release 24 hr warfarin 2.5 mg tablet 2.5 mg PO DAILY 09/03/19 08/05/22 History ascorbic acid (vitamin C) 500 mg 1,000 mg PO DAILY 10/17/19 08/05/22 History tablet (Vitamin C) tramadol 50 mg tablet 100 mg PO Q8HP PRN Pain #10 tabs 10/20/19 08/05/22 Rx amiodarone 200 mg tablet 200 mg PO DAILY 05/06/20 08/05/22 History aspirin 81 mg tablet,delayed 81 mg PO DAILY 05/06/20 08/05/22 History release (Saranya Low Dose Aspirin) metoprolol tartrate 25 mg tablet See Rx Instructions .Route .COMPLEX 05/06/20 08/05/22 History vitamin B complex (B-Complex 1 tab PO DAILY 05/06/20 08/05/22 History tablet) vitamin E 268 mg (400 unit) capsule 400 unit PO DAILY 05/06/20 08/05/22 History methocarbamol 500 mg tablet 500 mg PO BEDTIME PRN Spasms 08/05/22 08/05/22 History Allergies Allergy/AdvReac Type Severity Reaction Status Date / Time latex Allergy Intermediate ITCHING Verified 08/05/22 10:08 acetaminophen [From Vicodin] AdvReac Agitated Verified 08/05/22 10:08 hydrocodone [From Vicodin] AdvReac Agitated Verified 08/05/22 10:08 oxycodone AdvReac Confusion Verified 08/05/22 10:08 Exam Vital Signs (past 8 hours): - 08/05/22 09:32 08/05/22 10:20 08/05/22 10:25 Temperature 97.4 F L Pulse Rate 89 Respiratory Rate 18 Blood Pressure 143/66 H Pulse Oximetry 96 88 L 98 Oxygen Delivery Method Room Air Room Air Nasal Cannula Oxygen Flow Rate 2 08/05/22 09:58 08/05/22 10:00 08/05/22 10:41 Temperature Pulse Rate 85 81 Respiratory Rate Blood Pressure Pulse Oximetry 93 Oxygen Delivery Method Oxygen Flow Rate 08/05/22 11:00 08/05/22 11:26 08/05/22 11:26 Temperature Pulse Rate 79 79 Respiratory Rate 15 22 Blood Pressure 122/56 L Pulse Oximetry 93 99 Oxygen Delivery Method Room Air Room Air Oxygen Flow Rate 08/05/22 11:30 08/05/22 11:30 08/05/22 12:00 Temperature Pulse Rate 79 Respiratory Rate 22 Blood Pressure 109/53 L 107/56 L Pulse Oximetry 97 Oxygen Delivery Method Room Air Oxygen Flow Rate 08/05/22 12:00 08/05/22 12:30 08/05/22 12:30 Temperature Pulse Rate 80 79 Respiratory Rate 21 16 Blood Pressure 114/53 L Pulse Oximetry 98 98 Oxygen Delivery Method Room Air Room Air Oxygen Flow Rate 08/05/22 13:00 08/05/22 13:00 08/05/22 13:30 Temperature Pulse Rate 81 81 Respiratory Rate 19 19 Blood Pressure 130/58 L Pulse Oximetry 97 98 Oxygen Delivery Method Room Air Room Air Oxygen Flow Rate 08/05/22 13:31 08/05/22 13:31 08/05/22 14:00 Temperature Pulse Rate 83 83 Respiratory Rate 17 20 Blood Pressure 124/58 L Pulse Oximetry 98 98 Oxygen Delivery Method Room Air Room Air Oxygen Flow Rate 08/05/22 14:01 08/05/22 14:01 08/05/22 14:30 Temperature Pulse Rate 81 Respiratory Rate 18 Blood Pressure 108/71 106/53 L Pulse Oximetry 98 Oxygen Delivery Method Room Air Oxygen Flow Rate 08/05/22 14:30 08/05/22 15:00 08/05/22 15:00 Temperature Pulse Rate 78 79 Respiratory Rate 16 16 Blood Pressure 115/57 L Pulse Oximetry 97 99 Oxygen Delivery Method Room Air Room Air Oxygen Flow Rate Oxygen Delivery Method Room Air Oxygen Flow Rate 2 Narrative Exam Narrative: pleasant, comfortable-looking, obese woman who appears her stated age. She is awake, alert and appropriate. She is supine in bed. Her oral mucous membranes are a little dry. Her breathing is non labored on room air. She has a sternotomy scar. She has no abdominal scars. She has a small umbilical hernia that reduces without tenderness. Her abdomen is soft, nontender. There are no peritoneal signs. Objective Labs Result Diagrams: 08/05/22 15:23 08/05/22 09:50 Labs: Laboratory Results - last 24 hr 08/05/22 08/05/22 08/05/22 09:50 09:50 09:50 WBC 8.0 RBC 2.97 L Hgb 9.7 L Hct 28.6 L MCV 96.6 MCH 32.6 MCHC 33.7 RDW 15.3 H Plt Count 214 Neut % (Auto) 84.3 H Lymph % (Auto) 10.3 L Ware % (Auto) 4.5 Eos % (Auto) 0.6 L Baso % (Auto) 0.3 Neut # (Auto) 6800 Lymph # (Auto) 800 L Ware # (Auto) 400 Eos # (Auto) 0 Baso # (Auto) 0 PT 52.3 H INR 4.5 H APTT 41 H Sodium 133 L Potassium 3.9 Chloride 97 L Carbon Dioxide 28 BUN 20 H Creatinine 0.73 Estimated GFR > 60 BUN/Creatinine Ratio 27.4 H Glucose 124 H Lactate Calcium 8.0 L Total Bilirubin 0.4 AST 34 ALT 21 Alkaline Phosphatase 45 Total Creatine Kinase 42 CK-MB (CK-2) TNP CK-MB (CK-2) Rel Index TNP Troponin I 0.014 Total Protein 6.6 Albumin 3.4 L Globulin 3.2 Albumin/Globulin Ratio 1.1 Lipase 42 SARS-CoV-2 (PCR) 08/05/22 08/05/22 09:50 10:25 WBC RBC Hgb Hct MCV MCH MCHC RDW Plt Count Neut % (Auto) Lymph % (Auto) Ware % (Auto) Eos % (Auto) Baso % (Auto) Neut # (Auto) Lymph # (Auto) Ware # (Auto) Eos # (Auto) Baso # (Auto) PT INR APTT Sodium Potassium Chloride Carbon Dioxide BUN Creatinine Estimated GFR BUN/Creatinine Ratio Glucose Lactate 1.4 Calcium Total Bilirubin AST ALT Alkaline Phosphatase Total Creatine Kinase CK-MB (CK-2) CK-MB (CK-2) Rel Index Troponin I Total Protein Albumin Globulin Albumin/Globulin Ratio Lipase SARS-CoV-2 (PCR) Negative [facility] Medical History (Updated 08/05/22 @ 17:39 by Flaca Ocampo RN) Atrial fibrillation CAD (coronary artery disease) Cardiomyopathy GERD (gastroesophageal reflux disease) Glucose intolerance Hearing impaired HLD (hyperlipidemia) HTN (hypertension) Hypothyroidism LBBB (left bundle branch block) Nonrheumatic aortic (valve) stenosis Osteoarthritis Osteoporosis Panic disorder RLS (restless legs syndrome) Systolic heart failure T12 compression fracture (06/04/12) Urinary incontinence Vertigo Surgical History H/O: hysterectomy Hip joint replacement status History of aortic valve replacement (~2001) History of lumpectomy of right breast Hx of bilateral cataract extraction Hx of removal of cyst Hx of tonsillectomy S/P CABG x 1 (~2001) Family History (Updated 05/07/20 @ 02:41 by YVONNE Rose) Father Diabetes mellitus Chronic kidney disease Heart disease Mother Cancer Social History household members: spouse, family and other Tobacco & Substance Use Smoking Status: Never smoker alcohol intake: never Assessment & Plan Assessment and plan (1) Ischemic colitis: Status: Acute Plan I have reviewed the CT scan both personally interpreted the images and the radiologist's read. I have seen and examined the patient. Although the CT scan is indicative of severe ischemia on exam the patient is soft and nontender. She says she feels a lot better than she did a little while ago and given that I think the most likely etiology here is a low-flow ischemic colitis, possibly. Ddx includes diverticular bleed, strangely on the CT scan the only area called with thickened bowel is small bowel. If this small bowel finding is causing the bleed, the ddx includes less common etiologies. Regardless of etiology of either the bleeding and/or CT findings, I feel that the best treatment at this time would be supportive care. If we can maximize her cardiac function keep her monitored and make sure that there are no cardiac or other events that are contributing to an ischemic episode then perhaps the ischemia will reverse and heal. At this time with no abdominal pain I do not recommend exploratory surgery. However, if her pain should worsen or become severe please call me as soon as possible and we can discuss options for surgical intervention. I have briefly discussed with her power of multi slide machine tender Aurora on the phone along with her other daughter who is present at the bedside, the expected outcome for a surgery such as an emergent exploratory laparotomy. She is not a good candidate and she is right to worry that she probably would not do well. It is unlikely that after an emergent laparotomy that she would return to her current state of health, and would probably need more help than she does now even if she does well. There is a risk of heart attack, stroke, blood clots, infections etc. that could result in her . Overall, there is no decision at this time as to exactly what they would want to do if the situation came to that, but are going to spend some time thinking about it. For now, we are not at the point where that decision is necessary, because I think that given the absence of abdominal pain or tenderness on exam supportive care is appropriate. I appreciate the assistance of Dr. Beard, with whom I have spoken, in optimizing her medically. I will follow along and if there is any concern for worsening ischemia or worsening blood loss from GI bleeding please do not hesitate to call me at [phone] If her condition improves, and there is a possibility she may tolerate a prep for a colonoscopy, I would be happy to proceed if that is something the patient would like to do. Tomorrow, I will plan to do a rectal exam as well. Time Spent With Patient Critical Care time: I spent a total of [] minutes of critical care time on this patient's care today; this time is exclusive of procedural time.
[2022-08-05 15:32] LABS: Hematocrit 28.8 % (36-46); Hemoglobin 9.7 g/dL (12.0-16.0)
--- NOTE | 2022-08-05 15:33 | PM.HP.1 ---
History of Present Illness History of Present Illness Date Patient Seen: 08/05/22 Chief complaint: clots from rectum/takes thinners/ ABD pain/ T-2 Narrative: Patient is a 82-year-old female history of mechanical valve and atrial fibrillation on warfarin and amiodarone presenting today with rectal bleeding.? She reported constipation earlier in the week then had excessive diarrhea at which point she reported some blood.? She continued to have some diarrhea she took Imodium then on the morning for presentation she felt cramping and thought she was going to have diarrhea again. However, in the toilet was blood.? She knows that she has some hemorrhoids in the past, however she is bleeding quite a bit more than hemorrhoids.? She is having some abdominal cramping.? Generalized weakness.? No dizziness lightheadedness or passing out.? She does not report any chest pain or palpitations.? She says she is not taken her morning medications including amiodarone and metoprolol. Not complaining of any fever chills nausea vomiting or diaphoresis. No chest pain or palpitations. No shortness of breath wheezing or cough. No abdominal. No dysuria or hematuria all extremities volitionally. No neurological symptoms in any extremity. No new skin lesions or rashes. Not complain of any acute mood changes or depression. Personally discussed the patient with Dr. Waller ER physician and Dr. Colbert general surgery in regards to the findings of the CT of the abdomen. All the findings are significant of the CT, actual examination of the abdomen is not as significant and Dr. Colbert is not intending to right surgery at this time and will follow the patient on the [facility]ardo. Patient History Medical History (Updated 08/05/22 @ 15:30 by Cherie Colbert MD) Atrial fibrillation CAD (coronary artery disease) Cardiomyopathy GERD (gastroesophageal reflux disease) Glucose intolerance Hearing impaired HLD (hyperlipidemia) HTN (hypertension) Hypothyroidism LBBB (left bundle branch block) Nonrheumatic aortic (valve) stenosis Osteoarthritis Osteoporosis Panic disorder RLS (restless legs syndrome) Systolic heart failure T12 compression fracture (06/04/12) Urinary incontinence Vertigo Surgical History H/O: hysterectomy Hip joint replacement status History of aortic valve replacement (~2001) History of lumpectomy of right breast Hx of bilateral cataract extraction Hx of removal of cyst Hx of tonsillectomy S/P CABG x 1 (~2001) Family & Social History Family History (Updated 05/07/20 @ 02:41 by YVONNE Rose) Father Diabetes mellitus Chronic kidney disease Heart disease Mother Cancer Social History: household members spouse,family,other Safety & Behavioral: Feels Safe in Current Yes Environment Been Physically Hurt or No Threatened By a Person Tobacco & Substance use: Smoking Status Never smoker alcohol intake never alcohol intake frequency holiday/special occasion Substance Use Type does not use Meds Home Medications and Allergies Home Medications Medication Instructions Recorded Confirmed Type diphenhydramine HCl 25 mg capsule 25 mg PO BEDTIME PRN Seasonal 06/17/12 08/05/22 History allergies ##0 acetaminophen 500 mg tablet 500 mg PO Q8HP PRN Pain ##0 06/18/12 08/05/22 History (Tylenol Extra Strength) calcium carbonate 600 mg-vitamin 1 tab PO BID 09/03/19 08/05/22 History D3 20 mcg (800 unit) chewable tablet (Caltrate 600 plus D) cyclobenzaprine 10 mg tablet 10 mg PO Q6-8H PRN Muscle Spasm 09/03/19 08/05/22 History ezetimibe 10 mg tablet (Zetia) 10 mg PO BEDTIME 09/03/19 08/05/22 History levothyroxine 125 mcg tablet 125 mcg PO SEEINSTR 09/03/19 08/05/22 History (Synthroid) omeprazole 40 mg capsule,delayed 40 mg PO BEDTIME 09/03/19 08/05/22 History release pramipexole 0.25 mg tablet 0.75 mg PO BEDTIME PRN RLS 09/03/19 08/05/22 History rosuvastatin 40 mg tablet (Crestor) 40 mg PO BEDTIME 09/03/19 08/05/22 History trospium 60 mg capsule,extended 50 mg PO BEDTIME 09/03/19 08/05/22 History release 24 hr warfarin 2.5 mg tablet 2.5 mg PO DAILY 09/03/19 08/05/22 History ascorbic acid (vitamin C) 500 mg 1,000 mg PO DAILY 10/17/19 08/05/22 History tablet (Vitamin C) tramadol 50 mg tablet 100 mg PO Q8HP PRN Pain #10 tabs 10/20/19 08/05/22 Rx amiodarone 200 mg tablet 200 mg PO DAILY 05/06/20 08/05/22 History aspirin 81 mg tablet,delayed 81 mg PO DAILY 05/06/20 08/05/22 History release (Saranya Low Dose Aspirin) metoprolol tartrate 25 mg tablet See Rx Instructions .Route .COMPLEX 05/06/20 08/05/22 History vitamin B complex (B-Complex 1 tab PO DAILY 05/06/20 08/05/22 History tablet) vitamin E 268 mg (400 unit) capsule 400 unit PO DAILY 05/06/20 08/05/22 History methocarbamol 500 mg tablet 500 mg PO BEDTIME PRN Spasms 08/05/22 08/05/22 History Allergies Allergy/AdvReac Type Severity Reaction Status Date / Time latex Allergy Intermediate ITCHING Verified 08/05/22 10:08 acetaminophen [From Vicodin] AdvReac Agitated Verified 08/05/22 10:08 hydrocodone [From Vicodin] AdvReac Agitated Verified 08/05/22 10:08 oxycodone AdvReac Confusion Verified 08/05/22 10:08 Review of Systems Review of Systems Narrative: Fourteen system review was completed any pertinent findings are in the history of present illness. Exam Vital Signs (past 8 hours): - 08/05/22 09:32 08/05/22 10:20 08/05/22 10:25 Temperature 97.4 F L Pulse Rate 89 Respiratory Rate 18 Blood Pressure 143/66 H Pulse Oximetry 96 88 L 98 Oxygen Delivery Method Room Air Room Air Nasal Cannula Oxygen Flow Rate 2 08/05/22 09:58 08/05/22 10:00 08/05/22 10:41 Temperature Pulse Rate 85 81 Respiratory Rate Blood Pressure Pulse Oximetry 93 Oxygen Delivery Method Oxygen Flow Rate 08/05/22 11:00 08/05/22 11:26 08/05/22 11:26 Temperature Pulse Rate 79 79 Respiratory Rate 15 22 Blood Pressure 122/56 L Pulse Oximetry 93 99 Oxygen Delivery Method Room Air Room Air Oxygen Flow Rate 08/05/22 11:30 08/05/22 11:30 08/05/22 12:00 Temperature Pulse Rate 79 Respiratory Rate 22 Blood Pressure 109/53 L 107/56 L Pulse Oximetry 97 Oxygen Delivery Method Room Air Oxygen Flow Rate 08/05/22 12:00 08/05/22 12:30 08/05/22 12:30 Temperature Pulse Rate 80 79 Respiratory Rate 21 16 Blood Pressure 114/53 L Pulse Oximetry 98 98 Oxygen Delivery Method Room Air Room Air Oxygen Flow Rate 08/05/22 13:00 08/05/22 13:00 08/05/22 13:30 Temperature Pulse Rate 81 81 Respiratory Rate 19 19 Blood Pressure 130/58 L Pulse Oximetry 97 98 Oxygen Delivery Method Room Air Room Air Oxygen Flow Rate 08/05/22 13:31 08/05/22 13:31 08/05/22 14:00 Temperature Pulse Rate 83 83 Respiratory Rate 17 20 Blood Pressure 124/58 L Pulse Oximetry 98 98 Oxygen Delivery Method Room Air Room Air Oxygen Flow Rate 08/05/22 14:01 08/05/22 14:01 08/05/22 14:30 Temperature Pulse Rate 81 Respiratory Rate 18 Blood Pressure 108/71 106/53 L Pulse Oximetry 98 Oxygen Delivery Method Room Air Oxygen Flow Rate 08/05/22 14:30 08/05/22 15:00 08/05/22 15:00 Temperature Pulse Rate 78 79 Respiratory Rate 16 16 Blood Pressure 115/57 L Pulse Oximetry 97 99 Oxygen Delivery Method Room Air Room Air Oxygen Flow Rate Oxygen Delivery Method Room Air Oxygen Flow Rate 2 Narrative Exam Narrative: GENERAL:? Alert pleasant 82-year-old female and in no acute distress. HEENT: Head atraumatic, extraocular movements normal, pupils reactive, face symmetric, moist mucous membranes, head is normocephalic. CARDIOVASCULAR: Regular rate and rhythm without murmurs, rubs or gallops. Heart sounds S1 and S2. RESPIRATORY: Breath sounds equal bilaterally, no wheezes rales or rhonchi. Adequate air entry throughout the lung holder ABDOMEN: Soft, nontender except for discrete soft tissue air in the left lower quadrant that appears to be abdominal wall in nature. Normoactive bowel sounds all 4 quadrants.? No guarding or rebound. RECTAL:? Grossly positive for blood. : No CVA tenderness EXTREMITIES: Normal range of motion, no clubbing or edema.? Neurovascularly intact. NEUROLOGICAL: Alert and oriented x4.Normal gait and speech. SKIN: Warm, dry, no laceration, no petechiae, no rashes or lesions. Objective Labs Result Diagrams: 08/05/22 09:50 08/05/22 09:50 Labs: Laboratory Results - last 24 hr 08/05/22 08/05/22 08/05/22 09:50 09:50 09:50 WBC 8.0 RBC 2.97 L Hgb 9.7 L Hct 28.6 L MCV 96.6 MCH 32.6 MCHC 33.7 RDW 15.3 H Plt Count 214 Neut % (Auto) 84.3 H Lymph % (Auto) 10.3 L [place] % (Auto) 4.5 Eos % (Auto) 0.6 L Baso % (Auto) 0.3 Neut # (Auto) 6800 Lymph # (Auto) 800 L [place] # (Auto) 400 Eos # (Auto) 0 Baso # (Auto) 0 PT 52.3 H INR 4.5 H APTT 41 H Sodium 133 L Potassium 3.9 Chloride 97 L Carbon Dioxide 28 BUN 20 H Creatinine 0.73 Estimated GFR > 60 BUN/Creatinine Ratio 27.4 H Glucose 124 H Lactate Calcium 8.0 L Total Bilirubin 0.4 AST 34 ALT 21 Alkaline Phosphatase 45 Total Creatine Kinase 42 CK-MB (CK-2) TNP CK-MB (CK-2) Rel Index TNP Troponin I 0.014 Total Protein 6.6 Albumin 3.4 L Globulin 3.2 Albumin/Globulin Ratio 1.1 Lipase 42 SARS-CoV-2 (PCR) 08/05/22 08/05/22 09:50 10:25 WBC RBC Hgb Hct MCV MCH MCHC RDW Plt Count Neut % (Auto) Lymph % (Auto) [place] % (Auto) Eos % (Auto) Baso % (Auto) Neut # (Auto) Lymph # (Auto) [place] # (Auto) Eos # (Auto) Baso # (Auto) PT INR APTT Sodium Potassium Chloride Carbon Dioxide BUN Creatinine Estimated GFR BUN/Creatinine Ratio Glucose Lactate 1.4 Calcium Total Bilirubin AST ALT Alkaline Phosphatase Total Creatine Kinase CK-MB (CK-2) CK-MB (CK-2) Rel Index Troponin I Total Protein Albumin Globulin Albumin/Globulin Ratio Lipase SARS-CoV-2 (PCR) Negative Assessment & Plan Assessment & Plan narrative: 1. Acute rectal bleeding. Present on presentation. Setting of elevated INR in a patient who regularly takes warfarin. Vitamin K was provided in the ER and warfarin will be held until the bleeding stops and the INR is at a suitable level. Noted anemia. Follow hemoglobin. Determine if transfusion is necessary. 2. Concern for acute bowel ischemia based on CT of the abdomen. There is findings on the CT consistent with focally inflamed left-sided small bowel loop with wall thickening and perienteric edema. There is also concern for intrahepatic venous gas consistent with a concern for ischemic bowel. There are no clinical findings of ischemia and patient will be clinically no acute need for surgery. Other generally nontender except for discrete area in the left lower quadrant that appears to be some tenderness in the abdominal wall. 3. Chronic mechanical aortic valve. Requiring anticoagulation. This will be held at this time due to rectal bleeding. Monitor INR in determine when rectal bleeding has stopped and INRs suitable to reinitiate warfarin. 4. CAD (coronary artery disease) present on presentation. Maintain patient's regular medication. 5. Cardiomyopathy present on presentation. Continue patient's home medication. 6. GERD (gastroesophageal reflux disease). Present on presentation. Patient's regular dose of medication will be held and patient will be given Protonix intravenously for the 1st 3 days. Initial loading dose of 80 mg given in the ER and this will be followed with 40 mg IV b.i.d. for 3 days and then transitioned back to 40 mg daily which is the patient's usual dose on August 09. 7. Glucose intolerance by history. On no current medication. We will tests hemoglobin A1c. 8. Hearing impaired. Present on presentation. 9. HLD (hyperlipidemia). Present on presentation. Continue patient's home statin medication. 10. HTN (hypertension). Chronic problem. Blood pressure was soft on presentation and it will be evaluated if antihypertensive medications need to be held. 11. Hypothyroidism, chronic problem on presentation. Evaluate TSH, free T4 and free T3. Determine if patient is on suitable replacement. 12. Mild hyponatremia. Likely chronic in an elderly patient who is not ingesting a significant amount of fluid. Continue to monitor. 13. Mild hypocalcemia. Likely chronic. Continue to follow. Provide replacement. 14. Urinary incontinence. Chronic problem. Provide appropriate care during the hospital stay. DVT prophylaxis: Contraindicated at this time due to rectal bleeding. Code status: Full code. This was discussed with the patient. Substitute decision maker: Aurora Solorzano, patient's daughter. Disposition on discharge: Expect discharge to home once stable. Time Spent With Patient Critical Care time: I spent a total of [] minutes of critical care time on this patient's care today; this time is exclusive of procedural time.
[2022-08-05 15:41] LABS: Lactate (Lactic Acid) 0.9 mmol/L (0.7-2.1)
--- NOTE | 2022-08-05 17:39 | PC.NURSE ---
Brief/gown changed upon transfer to room 203.
[2022-08-05] MEDS: PANTOPRAZOLE 40 MG VIAL IV (21:45)
[2022-08-05] MEDS: CHOLECALCIFEROL (VITAMIN D3) 1,000 UNIT TABLET 1000 UNIT PO (21:46)
[2022-08-05] MEDS: ATORVASTATIN 20 MG TABLET 80 MG PO (21:46)
[2022-08-05] MEDS: EZETIMIBE 10 MG TABLET PO (21:46)
[2022-08-05] MEDS: OXYBUTYNIN 5 MG ER TAB 10 MG PO (21:47)
[2022-08-05] MEDS: METOPROLOL IR 25 MG TABLET PO (21:48)
[2022-08-05 22:19] LABS: Hematocrit 27.6 % (36-46); Hemoglobin 9.5 g/dL (12.0-16.0); Mean Corpuscular HGB Conc 34.4 % (30-36); Mean Corpuscular Hemoglobin 32.9 PG (26-34); Mean Corpuscular Volume 95.6 fL (80-100); Platelet Count 212 X10^3/uL (150-400); Red Blood Cell Count 2.89 X10^6/uL (4.0-5.2); Red Cell Distribution Width 15.1 % (11.6-14.8); White Blood Cell Count 9.8 X10^3/uL (4.5-11.0)
[2022-08-06 03:24] VITALS: BP 116/53; PULSE 77; RESP 18; TEMP 36.3; O2SAT 96
[2022-08-06] MEDS: LEVOTHYROXINE 125 MCG TABLET PO (05:54)
[2022-08-06] MEDS: LEVOTHYROXINE 125 MCG TABLET 250 MCG PO (05:54)
[2022-08-06] MEDS: CYCLOBENZAPRINE 10 MG TABLET PO (06:00)
[2022-08-06 06:23] LABS: Add Manual Diff / Slide Review NO; Basophils Absolute Auto 0 /uL (0-100); Basophils Percent Auto 0.5 % (0-2); Eosinophils Absolute Auto 200 /uL (0-450); Hematocrit 28.8 % (36-46); Hemoglobin 9.8 g/dL (12.0-16.0); Lymphocytes Absolute Auto 1100 /uL (1100-4500); Lymphocytes Percent Auto 12.5 % (25-40); Mean Corpuscular HGB Conc 34.1 % (30-36); Mean Corpuscular Hemoglobin 32.6 PG (26-34); Mean Corpuscular Volume 95.7 fL (80-100); Monocytes Absolute Auto 700 /uL (0-900); Monocytes Percent Auto 7.7 % (3-14); Neutrophils Absolute Auto 7100 /uL (1500-7000); Neutrophils Percent Auto 77.3 % (50-75); Platelet Count 221 X10^3/uL (150-400); Red Blood Cell Count 3.01 X10^6/uL (4.0-5.2); White Blood Cell Count 9.2 X10^3/uL (4.5-11.0)
[2022-08-06 06:27] LABS: Hemoglobin A1C% w Est Avg Glu 4.9 % (4.0-6.0)
[2022-08-06 06:28] LABS: Alanine Aminotransferase 18 IU/L (<35); Albumin 3.1 g/dL (3.5-5.0); Alkaline Phosphatase 43 U/L (38-126); Aspartate Aminotransferase 31 IU/L (14-36); BUN Creatinine Ratio 16.2 (6-22); Bilirubin Total 0.7 mg/dL (0.2-1.3); Blood Urea Nitrogen 12 mg/dL (7-17); Calcium 7.9 mg/dL (8.4-10.2); Carbon Dioxide 30 mmol/L (22-32); Chloride 99 mmol/L (98-107); Estimated Glomerular Filt Rate > 60 mL/min (>60); Globulin 3.1 g/dL (1.7-4.1); Glucose 96 mg/dL (80-110); HEMOLYSIS < 15 (0-50); Sodium 133 mmol/L (137-145); Total Protein 6.2 g/dL (6.3-8.2)
[2022-08-06 06:57] LABS: Free T3, Triiodothyronine Free 2.09 pg/mL (2.77-5.27); Free T4, Direct Thyroxine 2.45 ng/dL (0.78-2.19)
[2022-08-06 07:10] LABS: Thyroid Stimulating Hormone 5.91 uIU/mL (0.47-4.68)
[2022-08-06 08:01] VITALS: BP 109/64; PULSE 80; RESP 18; TEMP 36.6; O2SAT 93
[2022-08-06] MEDS: ASCORBIC ACID 500 MG TABLET 1000 MG PO (08:44)
[2022-08-06] MEDS: PANTOPRAZOLE 40 MG VIAL IV ×2 (08:44→20:47)
[2022-08-06] MEDS: CHOLECALCIFEROL (VITAMIN D3) 1,000 UNIT TABLET 1000 UNIT PO ×2 (08:44→20:48)
[2022-08-06] MEDS: AMIODARONE 200 MG TABLET PO (08:44)
[2022-08-06] MEDS: CALCIUM CARBONATE 600 MG TABLET PO ×2 (08:44→12:39)
[2022-08-06] MEDS: METOPROLOL IR 50 MG TABLET PO (08:44)
[2022-08-06 08:50] LABS: INR 4.4 (0.9-1.3); Prothrombin Time 50.9 SECONDS (10.1-12.7)
--- NOTE | 2022-08-06 09:18 | CM.DANOTE ---
DCP: Case received, EMR reviewed and met with patient. Daughter, Amirah, was at bedside. Introduced self and role. Was able to obtain information regarding patient's activity level prior to hospitalization, as well as her current living situation. DCP assessment completed with information currently available. Patient is an 82 year old female who admitted yesterday afternoon to the care of the hospitalist team. PCP: Dr. Rollins. Payer: confirmed: Medicare/[employer]. Patient came to the hospital via private vehicle for rectal bleeding. Notes indicate that patient had complained of constipation earlier in the week, then, excessive diarrhea. Patient has history of mechanical valve and atrial fibrillation, and is on warfarin. Patient admitted with acute rectal bleeding, concern for acute bowel ischemia. Patient has had a surgical consult, is not a good candidate for surgery. It will be determined if she will have transfusion. Met with patient in her room, daughter at bedside. Confirmed that she resides in [place], daughterAmirah and spouse live with patient. Patient no longer drives, daughter takes her to appointments. She has a cane, and uses a walker at times as well. P: DCP to continue to follow. Plan is home when deemed medically stable. Naty Juan RN/Material Attendant Discharge Planning/Care Management CM Discharge Assessment Start: 08/06/22 09:16 Freq: Status: Active Protocol: Document 08/06/22 09:16 (Rec: 08/06/22 09:17 [id number]) Discharge Planning Assessment Assigned Antenna Specialist Naty Juan RN/Material Attendant Advance Directives? Yes: POLST Advance Directives on File No History Provided By Patient,Medical Record Prior Living Arrangements House Household Members family,other Type of transporation used prior to Relies on Others admit Independent with ADL's Yes Is patient alert and oriented? Yes Needs Assistance With Meal Prep,Home Chores / Shopping Caregiver for Another No DME Already Rented / Owned FWW / Walker,Cane Barriers to Discharge No Comment Patient resides with Amirah garcía Discharge Plan Home Transportation Arrangement Daughter Referrals Initiated None needed Whiteboard Updated in Patient Room with Yes name and ext. # of Antenna Specialist Review Status In Process Next Review Type Continued Stay Review
--- NOTE | 2022-08-06 09:30 | PM.PN.1 ---
Subjective Subjective Date Patient Seen: 08/06/22 Interval history: Patient is a 82-year-old female history of mechanical valve and atrial fibrillation on warfarin and amiodarone presenting today with rectal bleeding.? She reported constipation earlier in the week then had excessive diarrhea at which point she reported some blood.? She continued to have some diarrhea she took Imodium then on the morning for presentation she felt cramping and thought she was going to have diarrhea again. However, in the toilet was blood.? She knows that she has some hemorrhoids in the past, however she is bleeding quite a bit more than hemorrhoids.? She is having some abdominal cramping.? Generalized weakness.? No dizziness lightheadedness or passing out.? She does not report any chest pain or palpitations.? She says she is not taken her morning medications including amiodarone and metoprolol. Per rectal bleeding has appeared to stop. No abdominal pain. Patient concerned she is constipated now after taking Imodium prior to admission. No nausea or vomiting. Getting intestinal gas. Exam Vital Signs (past 8 hours): - 08/06/22 03:24 08/06/22 08:01 Temperature 97.4 F L 97.8 F Pulse Rate 77 80 Respiratory Rate 18 18 Blood Pressure 116/53 L 109/64 Pulse Oximetry 96 93 Oxygen Flow Rate 0 0 Oxygen Delivery Method Room Air Oxygen Flow Rate 0 Narrative Exam Narrative: GENERAL:? Alert pleasant 82-year-old female and in no acute distress. HEENT: Head atraumatic, extraocular movements normal, pupils reactive, face symmetric, moist mucous membranes, head is normocephalic. CARDIOVASCULAR: Regular rate and rhythm without murmurs, rubs or gallops.? Heart sounds S1 and S2. RESPIRATORY: Breath sounds equal bilaterally, no wheezes rales or rhonchi.? Adequate air entry throughout the lung holder ABDOMEN: Soft, nontender.? Normoactive bowel sounds all 4 quadrants.? No guarding or rebound. : No CVA tenderness EXTREMITIES: Normal range of motion, no clubbing or edema.? Neurovascularly intact. NEUROLOGICAL: Alert and oriented x4.Normal gait and speech. SKIN: Warm, dry, no laceration, no petechiae, no rashes or lesions. Objective Labs Result Diagrams: 08/06/22 06:08 08/06/22 06:08 Labs: Laboratory Results - last 24 hr 08/05/22 08/05/22 08/05/22 09:50 09:50 09:50 WBC 8.0 RBC 2.97 L Hgb 9.7 L Hct 28.6 L MCV 96.6 MCH 32.6 MCHC 33.7 RDW 15.3 H Plt Count 214 Neut % (Auto) 84.3 H Lymph % (Auto) 10.3 L [place] % (Auto) 4.5 Eos % (Auto) 0.6 L Baso % (Auto) 0.3 Neut # (Auto) 6800 Lymph # (Auto) 800 L [place] # (Auto) 400 Eos # (Auto) 0 Baso # (Auto) 0 PT 52.3 H INR 4.5 H APTT 41 H Sodium 133 L Potassium 3.9 Chloride 97 L Carbon Dioxide 28 BUN 20 H Creatinine 0.73 Estimated GFR > 60 BUN/Creatinine Ratio 27.4 H Glucose 124 H Hemoglobin A1c Lactate Calcium 8.0 L Total Bilirubin 0.4 AST 34 ALT 21 Alkaline Phosphatase 45 Total Creatine Kinase 42 CK-MB (CK-2) TNP CK-MB (CK-2) Rel Index TNP Troponin I 0.014 Total Protein 6.6 Albumin 3.4 L Globulin 3.2 Albumin/Globulin Ratio 1.1 Lipase 42 TSH Free T4 Free T3 SARS-CoV-2 (PCR) 08/05/22 08/05/22 08/05/22 09:50 10:25 15:23 WBC RBC Hgb 9.7 L Hct 28.8 L MCV MCH MCHC RDW Plt Count Neut % (Auto) Lymph % (Auto) [place] % (Auto) Eos % (Auto) Baso % (Auto) Neut # (Auto) Lymph # (Auto) [place] # (Auto) Eos # (Auto) Baso # (Auto) PT INR APTT Sodium Potassium Chloride Carbon Dioxide BUN Creatinine Estimated GFR BUN/Creatinine Ratio Glucose Hemoglobin A1c Lactate 1.4 Calcium Total Bilirubin AST ALT Alkaline Phosphatase Total Creatine Kinase CK-MB (CK-2) CK-MB (CK-2) Rel Index Troponin I Total Protein Albumin Globulin Albumin/Globulin Ratio Lipase TSH Free T4 Free T3 SARS-CoV-2 (PCR) Negative 08/05/22 08/05/22 08/06/22 15:23 22:08 06:08 WBC 9.8 RBC 2.89 L Hgb 9.5 L Hct 27.6 L MCV 95.6 MCH 32.9 MCHC 34.4 RDW 15.1 H Plt Count 212 Neut % (Auto) Lymph % (Auto) [place] % (Auto) Eos % (Auto) Baso % (Auto) Neut # (Auto) Lymph # (Auto) [place] # (Auto) Eos # (Auto) Baso # (Auto) PT INR APTT Sodium Potassium Chloride Carbon Dioxide BUN Creatinine Estimated GFR BUN/Creatinine Ratio Glucose Hemoglobin A1c Lactate 0.9 Calcium Total Bilirubin AST ALT Alkaline Phosphatase Total Creatine Kinase CK-MB (CK-2) CK-MB (CK-2) Rel Index Troponin I Total Protein Albumin Globulin Albumin/Globulin Ratio Lipase TSH 5.91 H Free T4 2.45 H Free T3 2.09 L SARS-CoV-2 (PCR) 08/06/22 08/06/22 08/06/22 06:08 06:08 06:08 WBC 9.2 RBC 3.01 L Hgb 9.8 L Hct 28.8 L MCV 95.7 MCH 32.6 MCHC 34.1 RDW 15.0 H Plt Count 221 Neut % (Auto) 77.3 H Lymph % (Auto) 12.5 L [place] % (Auto) 7.7 Eos % (Auto) 2.0 Baso % (Auto) 0.5 Neut # (Auto) 7100 H Lymph # (Auto) 1100 [place] # (Auto) 700 Eos # (Auto) 200 Baso # (Auto) 0 PT INR APTT Sodium 133 L Potassium 4.0 Chloride 99 Carbon Dioxide 30 BUN 12 Creatinine 0.74 Estimated GFR > 60 BUN/Creatinine Ratio 16.2 Glucose 96 Hemoglobin A1c 4.9 Lactate Calcium 7.9 L Total Bilirubin 0.7 AST 31 ALT 18 Alkaline Phosphatase 43 Total Creatine Kinase CK-MB (CK-2) CK-MB (CK-2) Rel Index Troponin I Total Protein 6.2 L Albumin 3.1 L Globulin 3.1 Albumin/Globulin Ratio 1.0 Lipase TSH Free T4 Free T3 SARS-CoV-2 (PCR) 08/06/22 08:38 WBC RBC Hgb Hct MCV MCH MCHC RDW Plt Count Neut % (Auto) Lymph % (Auto) [place] % (Auto) Eos % (Auto) Baso % (Auto) Neut # (Auto) Lymph # (Auto) [place] # (Auto) Eos # (Auto) Baso # (Auto) PT 50.9 H INR 4.4 H APTT Sodium Potassium Chloride Carbon Dioxide BUN Creatinine Estimated GFR BUN/Creatinine Ratio Glucose Hemoglobin A1c Lactate Calcium Total Bilirubin AST ALT Alkaline Phosphatase Total Creatine Kinase CK-MB (CK-2) CK-MB (CK-2) Rel Index Troponin I Total Protein Albumin Globulin Albumin/Globulin Ratio Lipase TSH Free T4 Free T3 SARS-CoV-2 (PCR) PFS Medical History (Updated 08/05/22 @ 17:39 by Flaca Ocampo RN) Atrial fibrillation CAD (coronary artery disease) Cardiomyopathy GERD (gastroesophageal reflux disease) Glucose intolerance Hearing impaired HLD (hyperlipidemia) HTN (hypertension) Hypothyroidism LBBB (left bundle branch block) Nonrheumatic aortic (valve) stenosis Osteoarthritis Osteoporosis Panic disorder RLS (restless legs syndrome) Systolic heart failure T12 compression fracture (06/04/12) Urinary incontinence Vertigo Surgical History H/O: hysterectomy Hip joint replacement status History of aortic valve replacement (~2001) History of lumpectomy of right breast Hx of bilateral cataract extraction Hx of removal of cyst Hx of tonsillectomy S/P CABG x 1 (~2001) Family History (Updated 05/07/20 @ 02:41 by YVONNE Rose) Father Diabetes mellitus Chronic kidney disease Heart disease Mother Cancer Social History household members: family and other Smoking Status: Never smoker alcohol intake: never Assessment & Plan Assessment & Plan narrative: 1. Acute rectal bleeding.? Present on presentation.? Setting of elevated INR in a patient who regularly takes warfarin.? Vitamin K was provided in the ER and warfarin will be held until the bleeding stops and the INR is at a suitable level.? Noted anemia.? Follow hemoglobin.? Determine if transfusion is necessary. Hb today is 9.8 and so no transfusion. INR remains elevated and will give further Vitamin K. Rectal bleeding has settled. 2. Concern for acute bowel ischemia based on CT of the abdomen.? There is findings on the CT consistent with?focally inflamed left-sided small bowel loop with wall thickening and perienteric edema.? There is also concern for intrahepatic venous gas consistent with a concern for ischemic bowel. There are?no clinical findings of ischemia and patient will be clinically no acute need for surgery.? Abdomen generally nontender today. 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 Will trial today increase in diet. 3. Chronic mechanical aortic valve.? Requiring anticoagulation.? This will be held at this time due to rectal bleeding presentation and elevated INR persistent.? Monitor INR to determine when INRs suitable to reinitiate warfarin. Further Vitamin K today. 4. CAD (coronary artery disease) present on presentation.? Maintain patient's regular medication. 5. Cardiomyopathy present on presentation.? Continue patient's home medication. 6. GERD (gastroesophageal reflux disease).? Present on presentation.? Patient's regular dose of medication will be held and patient will be given Protonix intravenously for the 1st 3 days.? Initial loading dose of 80 mg given in the ER and this will be followed with 40 mg IV b.i.d. for 3 days and then transitioned back to 40 mg daily which is the patient's usual dose on August 09. 7. Glucose intolerance by history.? On no current medication.? We will tests hemoglobin A1c. 8. Hearing impaired.? Present on presentation. 9. HLD (hyperlipidemia).? Present on presentation.? Continue patient's home statin medication. 10. HTN (hypertension).? Chronic problem.? Blood pressure was soft on presentation and it will be evaluated if antihypertensive medications need to be held. 11. Hypothyroidism, chronic problem on presentation.? Evaluate TSH, free T4 and free T3.? Determine if patient is on suitable replacement. Free T3 is low and will initiate Cytomel. 12. Mild hyponatremia.? Remains mild hyponatremia. Continue to monitor. 13. Mild hypocalcemia.? Likely chronic.? Slightly lower today. Continue to follow.? Increase replacement.? 14. Urinary incontinence.? Chronic problem.? Provide appropriate care during the hospital stay. 15. Atrial fibrillation.? Chronic present on admission.? Amiodarone to help with rate control.? Anticoagulation held at this time due to rectal bleeding presentation and high INR.? Monitor INR and rectal bleeding to determine when warfarin will be re-initiated. DVT prophylaxis:? Contraindicated at this time due to rectal bleeding presentation and persistent elevated INR. Code status:? Full code.? This was discussed with the patient. Substitute decision maker:? Aurora Rashad, patient's daughter. Disposition on discharge:? Expect discharge to home once stable. Time Spent With Patient Critical Care time: I spent a total of [] minutes of critical care time on this patient's care today; this time is exclusive of procedural time.
[2022-08-06 11:02] LABS: Hemoglobin A1C% w Est Avg Glu 4.9 % (4.0-6.0)
[2022-08-06] MEDS: PHYTONADIONE (VIT K1) 5 MG TABLET 10 MG PO (12:38)
[2022-08-06] MEDS: VITAMIN E 400 UNIT CAPSULE PO (12:39)
[2022-08-06] MEDS: LIOTHYRONINE 5 MCG TABLET PO (12:39)
--- NOTE | 2022-08-06 14:28 | PM.PN.1 ---
Subjective Subjective Interval history: Ms. Munoz states that she is feeling okay today. Her pain is not severe. She does endorse some gas like movement in her abdomen which she describes as ?uncomfortable? however she states that this feeling is fairly normal for her. She again reiterates that she often has constipation and then diarrhea and diarrhea which she takes Imodium for routinely. She states that she is not had any bleeding or bowel movement at all since she is been in the hospital. Exam Vital Signs (past 8 hours): - 08/06/22 08:01 08/06/22 08:30 Temperature 97.8 F Pulse Rate 80 Respiratory Rate 18 Blood Pressure 109/64 Pulse Oximetry 93 Oxygen Delivery Method Room Air Oxygen Flow Rate 0 Oxygen Delivery Method Room Air Oxygen Flow Rate 0 Narrative Exam Narrative: She is awake alert oriented in no acute distress . Supine in bed some difficulty with mobility consistent with her age and comorbidities. Her oral mucous membranes are moist Her breathing is nonlabored on room air. Her abdomen is soft with very mild tenderness on the left side with deep palpation. No peritoneal signs A rectal exam was performed and there is a healing posterior anal fissure. This does not appear to be bleeding, a gloved finger is inserted into the rectum and there were no masses or strictures palpated however was some dark tarry stool mixed with some bright red blood on the gloved finger. Objective Labs Result Diagrams: 08/06/22 06:08 08/06/22 06:08 Labs: Laboratory Results - last 24 hr 08/05/22 08/05/22 08/05/22 15:23 15:23 22:08 WBC 9.8 RBC 2.89 L Hgb 9.7 L 9.5 L Hct 28.8 L 27.6 L MCV 95.6 MCH 32.9 MCHC 34.4 RDW 15.1 H Plt Count 212 Neut % (Auto) Lymph % (Auto) [place] % (Auto) Eos % (Auto) Baso % (Auto) Neut # (Auto) Lymph # (Auto) [place] # (Auto) Eos # (Auto) Baso # (Auto) PT INR Sodium Potassium Chloride Carbon Dioxide BUN Creatinine Estimated GFR BUN/Creatinine Ratio Glucose Hemoglobin A1c Lactate 0.9 Calcium Total Bilirubin AST ALT Alkaline Phosphatase Total Protein Albumin Globulin Albumin/Globulin Ratio TSH Free T4 Free T3 01/08/23 01/08/23 01/08/23 06:08 06:08 06:08 WBC 9.2 RBC 3.01 L Hgb 9.8 L Hct 28.8 L MCV 95.7 MCH 32.6 MCHC 34.1 RDW 15.0 H Plt Count 221 Neut % (Auto) 77.3 H Lymph % (Auto) 12.5 L [place] % (Auto) 7.7 Eos % (Auto) 2.0 Baso % (Auto) 0.5 Neut # (Auto) 7100 H Lymph # (Auto) 1100 [place] # (Auto) 700 Eos # (Auto) 200 Baso # (Auto) 0 PT INR Sodium Potassium Chloride Carbon Dioxide BUN Creatinine Estimated GFR BUN/Creatinine Ratio Glucose Hemoglobin A1c 4.9 Lactate Calcium Total Bilirubin AST ALT Alkaline Phosphatase Total Protein Albumin Globulin Albumin/Globulin Ratio TSH 5.91 H Free T4 2.45 H Free T3 2.09 L 08/06/22 08/06/22 08/06/22 06:08 06:08 08:38 WBC RBC Hgb Hct MCV MCH MCHC RDW Plt Count Neut % (Auto) Lymph % (Auto) [place] % (Auto) Eos % (Auto) Baso % (Auto) Neut # (Auto) Lymph # (Auto) [place] # (Auto) Eos # (Auto) Baso # (Auto) PT 50.9 H INR 4.4 H Sodium 133 L Potassium 4.0 Chloride 99 Carbon Dioxide 30 BUN 12 Creatinine 0.74 Estimated GFR > 60 BUN/Creatinine Ratio 16.2 Glucose 96 Hemoglobin A1c 4.9 Lactate Calcium 7.9 L Total Bilirubin 0.7 AST 31 ALT 18 Alkaline Phosphatase 43 Total Protein 6.2 L Albumin 3.1 L Globulin 3.1 Albumin/Globulin Ratio 1.0 TSH Free T4 Free T3 [facility] Medical History (Updated 08/06/22 @ 14:32 by Cherie Colbert MD) Atrial fibrillation CAD (coronary artery disease) Cardiomyopathy GERD (gastroesophageal reflux disease) Glucose intolerance Hearing impaired HLD (hyperlipidemia) HTN (hypertension) Hypothyroidism LBBB (left bundle branch block) Nonrheumatic aortic (valve) stenosis Osteoarthritis Osteoporosis Panic disorder RLS (restless legs syndrome) Systolic heart failure T12 compression fracture (06/04/12) Urinary incontinence Vertigo Surgical History H/O: hysterectomy Hip joint replacement status History of aortic valve replacement (~2001) History of lumpectomy of right breast Hx of bilateral cataract extraction Hx of removal of cyst Hx of tonsillectomy S/P CABG x 1 (~2001) Family History (Updated 05/07/20 @ 02:41 by YVONNE Rose) Father Diabetes mellitus Chronic kidney disease Heart disease Mother Cancer Social History household members: family and other Smoking Status: Never smoker alcohol intake: never Assessment & Plan Assessment and plan (1) Acute GI bleeding: Status: Acute (2) Ischemia, bowel: Status: Acute (3) Small bowel disease: Status: Acute Assessment & Plan narrative: Given her clinical status with minimal abdominal pain at this time no surgical intervention is planned. I do not have a explanation per se of bleeding abdominal pain and findings consistent with ischemia on her CT scan. The 1 diagnosis it seemed to tie it altogether was ischemic colitis. However upon further review of the radiologist's findings it seems that the loop of bowel which had thickened wall is small bowel in fact and not colon. I really can not explain this or figure out a way to connect all of these various findings. I think if we did want to further investigate the source of the bleeding I would start with the colonoscopies since that is the most common site of bleeding. If we saw a source that would tell us where the bleeding is coming from and that whatever is seen on her small bowel on the CT scan maybe a separate pathologic entity? Further if the colon looked overall normal we might decide to further investigate the small bowel as a source of the bleeding. The degree of aggressiveness with the workup and treatment depends on the patient preference and overall goals of care. I did discuss the patient with Dr. Cabrera today. I would be willing to schedule a colonoscopy if she would like to prep the patient or if she felt it was more appropriate I would be happy to see the patient in follow-up. Please feel free to call with any further questions or concerns thank you for this opportunity to provide care. Time Spent With Patient Critical Care time: I spent a total of [] minutes of critical care time on this patient's care today; this time is exclusive of procedural time.
[2022-08-06 15:22] VITALS: BP 111/83; PULSE 72; RESP 18; TEMP 36.4; O2SAT 97
[2022-08-06] MEDS: PSYLLIUM HUSK 1 PACKET PO (15:50)
[2022-08-06] MEDS: PRAMIPEXOLE 0.25 MG TABLET 0.75 MG PO (17:52)
[2022-08-06 20:46] VITALS: BP 128/59; PULSE 76; TEMP 36.6; O2SAT 95
[2022-08-06] MEDS: OXYBUTYNIN 5 MG ER TAB 10 MG PO (20:47)
[2022-08-06] MEDS: ONDANSETRON 4 MG/2 ML INJ IV (20:47)
[2022-08-06] MEDS: EZETIMIBE 10 MG TABLET PO (20:48)
[2022-08-06] MEDS: SIMETHICONE 80 MG TABLET PO (20:48)
[2022-08-06] MEDS: MELATONIN 3 MG TABLET PO (20:48)
[2022-08-06] MEDS: METOPROLOL IR 25 MG TABLET PO (20:49)
[2022-08-06] MEDS: ATORVASTATIN 20 MG TABLET 80 MG PO (20:49)
[2022-08-06 23:00] VITALS: BP 101/48; PULSE 76; RESP 16; TEMP 36.2; O2SAT 91
[2022-08-07 03:00] VITALS: BP 117/48; PULSE 84; RESP 16; TEMP 36.3; O2SAT 95
[2022-08-07] MEDS: LEVOTHYROXINE 125 MCG TABLET PO (05:34)
[2022-08-07] MEDS: LIOTHYRONINE 5 MCG TABLET PO (05:38)
[2022-08-07 05:59] LABS: Add Manual Diff / Slide Review NO; Basophils Absolute Auto 0 /uL (0-100); Basophils Percent Auto 0.3 % (0-2); Eosinophils Absolute Auto 100 /uL (0-450); Eosinophils Percent Auto 1.4 % (2-4); Hematocrit 27.6 % (36-46); Hemoglobin 9.4 g/dL (12.0-16.0); Lymphocytes Absolute Auto 900 /uL (1100-4500); Lymphocytes Percent Auto 10.6 % (25-40); Mean Corpuscular HGB Conc 34.2 % (30-36); Mean Corpuscular Hemoglobin 32.7 PG (26-34); Mean Corpuscular Volume 95.8 fL (80-100); Monocytes Absolute Auto 600 /uL (0-900); Monocytes Percent Auto 7.4 % (3-14); Neutrophils Absolute Auto 6900 /uL (1500-7000); Neutrophils Percent Auto 80.3 % (50-75); Platelet Count 218 X10^3/uL (150-400); Red Blood Cell Count 2.88 X10^6/uL (4.0-5.2); Red Cell Distribution Width 15.3 % (11.6-14.8); White Blood Cell Count 8.6 X10^3/uL (4.5-11.0)
[2022-08-07 06:12] LABS: Alanine Aminotransferase 18 IU/L (<35); Albumin 3.1 g/dL (3.5-5.0); Alkaline Phosphatase 44 U/L (38-126); Aspartate Aminotransferase 31 IU/L (14-36); BUN Creatinine Ratio 19.2 (6-22); Bilirubin Total 0.6 mg/dL (0.2-1.3); Blood Urea Nitrogen 14 mg/dL (7-17); Calcium 7.8 mg/dL (8.4-10.2); Carbon Dioxide 29 mmol/L (22-32); Chloride 97 mmol/L (98-107); Estimated Glomerular Filt Rate > 60 mL/min (>60); Glucose 117 mg/dL (80-110); HEMOLYSIS < 15 (0-50); Potassium 3.9 mmol/L (3.4-5.1); Sodium 130 mmol/L (137-145); Total Protein 6.1 g/dL (6.3-8.2)
[2022-08-07 06:13] LABS: INR 1.8 (0.9-1.3); Prothrombin Time 21.3 SECONDS (10.1-12.7)
[2022-08-07] MEDS: CYCLOBENZAPRINE 10 MG TABLET PO (07:02)
[2022-08-07 07:51] VITALS: BP 119/54; PULSE 75; RESP 18; TEMP 36.1; O2SAT 100
[2022-08-07] MEDS: ASCORBIC ACID 500 MG TABLET 1000 MG PO (08:20)
[2022-08-07] MEDS: CHOLECALCIFEROL (VITAMIN D3) 1,000 UNIT TABLET 1000 UNIT PO (08:21)
[2022-08-07] MEDS: VITAMIN E 400 UNIT CAPSULE PO (08:21)
[2022-08-07] MEDS: ONDANSETRON 4 MG ODT SL (08:21)
[2022-08-07] MEDS: AMIODARONE 200 MG TABLET PO (08:21)
[2022-08-07] MEDS: CALCIUM CARBONATE 600 MG TABLET 1200 MG PO (08:21)
[2022-08-07] MEDS: METOPROLOL IR 50 MG TABLET PO (08:22)
[2022-08-07] MEDS: PANTOPRAZOLE 40 MG VIAL IV (08:22)
--- NOTE | 2022-08-07 10:26 | P.PN_ITS ---
Subjective Subjective Date Patient Seen: 08/07/22 Time Patient Seen: 09:30 Interval history: Ms. Munoz states that she had a little bit of a rough night because she felt gassiness which she attributes to the fiber supplement. Otherwise she denies that she is had any bloody bowel movements and that her abdominal pain is any worse than it was yesterday. She believes it is some amount of abdominal pain is normal for her. She understands that she might be sent home today depending on how she does and although right now she feels a little bit weak and tired she is open to that idea Exam Vital Signs (past 8 hours): - 08/07/22 03:00 08/07/22 07:51 08/07/22 08:00 Temperature 97.3 F L 97.0 F L Pulse Rate 84 75 Respiratory Rate 16 18 Blood Pressure 117/48 L 119/54 L Pulse Oximetry 95 100 Oxygen Delivery Method Nasal Cannula Oxygen Flow Rate 0.5 0.5 Oxygen Delivery Method Nasal Cannula Oxygen Flow Rate 0.5 Narrative Exam Narrative: She is awake alert and oriented she is lying supine in bed. She does appear drowsy Her breathing is nonlabored and she is able to speak without difficulty but she is on nasal cannula. Her abdomen remains soft and nontender. She endorses a mild tenderness on her left abdomen. The exam is unchanged from yesterday and remains benign. Objective Labs Result Diagrams: 08/07/22 05:29 08/07/22 05:29 Labs: Laboratory Results - last 24 hr 08/06/22 08/07/22 08/07/22 06:08 05:29 05:29 WBC 8.6 RBC 2.88 L Hgb 9.4 L Hct 27.6 L MCV 95.8 MCH 32.7 MCHC 34.2 RDW 15.3 H Plt Count 218 Neut % (Auto) 80.3 H Lymph % (Auto) 10.6 L [place] % (Auto) 7.4 Eos % (Auto) 1.4 L Baso % (Auto) 0.3 Neut # (Auto) 6900 Lymph # (Auto) 900 L [place] # (Auto) 600 Eos # (Auto) 100 Baso # (Auto) 0 PT 21.3 H D INR 1.8 H Sodium Potassium Chloride Carbon Dioxide BUN Creatinine Estimated GFR BUN/Creatinine Ratio Glucose Hemoglobin A1c 4.9 Calcium Total Bilirubin AST ALT Alkaline Phosphatase Total Protein Albumin Globulin Albumin/Globulin Ratio 08/07/22 05:29 WBC RBC Hgb Hct MCV MCH MCHC RDW Plt Count Neut % (Auto) Lymph % (Auto) [place] % (Auto) Eos % (Auto) Baso % (Auto) Neut # (Auto) Lymph # (Auto) [place] # (Auto) Eos # (Auto) Baso # (Auto) PT INR Sodium 130 L Potassium 3.9 Chloride 97 L Carbon Dioxide 29 BUN 14 Creatinine 0.73 Estimated GFR > 60 BUN/Creatinine Ratio 19.2 Glucose 117 H Hemoglobin A1c Calcium 7.8 L Total Bilirubin 0.6 AST 31 ALT 18 Alkaline Phosphatase 44 Total Protein 6.1 L Albumin 3.1 L Globulin 3.0 Albumin/Globulin Ratio 1.0 PFSH Medical History (Updated 08/06/22 @ 14:32 by Cherie Colbert MD) Atrial fibrillation CAD (coronary artery disease) Cardiomyopathy GERD (gastroesophageal reflux disease) Glucose intolerance Hearing impaired HLD (hyperlipidemia) HTN (hypertension) Hypothyroidism LBBB (left bundle branch block) Nonrheumatic aortic (valve) stenosis Osteoarthritis Osteoporosis Panic disorder RLS (restless legs syndrome) Systolic heart failure T12 compression fracture (06/04/12) Urinary incontinence Vertigo Surgical History H/O: hysterectomy Hip joint replacement status History of aortic valve replacement (~2001) History of lumpectomy of right breast Hx of bilateral cataract extraction Hx of removal of cyst Hx of tonsillectomy S/P CABG x 1 (~2001) Family History (Updated 05/07/20 @ 02:41 by YVONNE Rose) Father Diabetes mellitus Chronic kidney disease Heart disease Mother Cancer Social History household members: family and other Smoking Status: Never smoker alcohol intake: never Assessment & Plan Assessment and plan (1) Acute GI bleeding: Status: Acute (2) Ischemia, bowel: Status: Acute Plan I have reviewed her laboratory values this morning and it does not appear that she has any active ongoing GI bleeding. She remains with a benign exam. I have spoken to the radiologist today. It appears that the loop of small bowel effected has signs (hypoenhancement, rather than hyper) that make ischemia really the top most likely etiology for this. He suggested that either an embolus or a thrombus of proximal portal venous location would be most likely... though admits that with a super therapeutic INR, that seems odd... however, perhaps it's possible that the INR became SUB therapeutic at some point in the days preceding her presentation? I understand that she is going to be arranged to have more frequent INR checks. I wonder if some bridging to ensure that with the reversal she has had, that she doesn't go unanticoagulated at any point could be prudent? I would defer to hospitalist's judgment on this point. He looked at the colon and though this could be a source of bleeding, it was his feeling that the small bowel, given it's radiologic appearance, would also likely be a source of GI bleed. He agreed given her benign clinical picture that a follow up CT scan, preferably with PO contrast would be advised. He agreed with recommended follow up CT in about a week. One of the outcomes of ischemia is that it can stricture down with time...It usually takes several weeks, but I'd like to follow the patient to monitor for this. If we are not in an emergent situation, its possible she could tolerate a laparoscopic small bowel resection with preoperative medical optimization and planning to minimize the risk. In summary: I would like for Ms. Munoz to have a repeat CT scan in the next week or two. I will arrange this through my office and have her follow-up after that exam for a checkup. Time Spent With Patient Critical Care time: I spent a total of [] minutes of critical care time on this patient's care today; this time is exclusive of procedural time.
--- NOTE | 2022-08-07 11:56 | CM.DPC ---
Addendum entered by Naty Juan R.N. 08/07/22 12:39: Spoke to Nae at [facility]. She has availabilities by Wed, and nursing can see this week, will just need to know when next INR is to be checked. Let her know that she will be updated if patient discharges today. Ordering RN, and P.T. Original Note: DCP Cont: Met with patient in her room. She is in bed, oxygen in place. Her daughter is sleeping at bedside. Asked her if she would be interested in any type of home health services. Patient will need to have some labs performed, INR. Patient indicated, she would be ok with home health, has no preferences. Left the Medicare Choice List. Patient resides in [place], so she would have either [facility] or [facility]. Can go ahead and start face to face. Signature is on the calendar for this week, can go ahead and initiate the referral. P: DCP to continue to follow. Plan is home, could likely today. Will initiate the [facility] referral. Naty Juan RN/Sequencing Machine Operator
[2022-08-07 13:16] VITALS: BP 108/45; PULSE 63; RESP 18; TEMP 37.2; O2SAT 98
[2022-08-07 13:33] VITALS: O2SAT 96
--- NOTE | 2022-08-07 14:00 | PC.NURSE ---
oxygen 1400 at 1310 pt's O2 sats upper 90s on 1L NC. pt awake at the time. Turned off O2 and started pt with using an incentive spirometer. pt able to reach volume of 1000 and performed 10 breaths. continuous O2 monitor in place with sats maintained in upper 90s. pt then fell asleep and O2 sat decreased to upper 80s. 1L O2 currently on via NC with pt's sats 94%. Continuous O2 monitor remains in place.
--- NOTE | 2022-08-07 16:11 | P.DS_ITS ---
History of Present Illness History of Present Illness Chief complaint: clots from rectum/takes thinners/ ABD pain/ T-2 Narrative: Patient is a 82-year-old female history of mechanical valve and atrial fibrillation on warfarin and amiodarone presenting today with rectal bleeding.? She reported constipation earlier in the week then had excessive diarrhea at which point she reported some blood.? She continued to have some diarrhea she took Imodium then on the morning for presentation she felt cramping and thought she was going to have diarrhea again. However, in the toilet was blood.? She knows that she has some hemorrhoids in the past, however she is bleeding quite a bit more than hemorrhoids.? She is having some abdominal cramping.? Generalized weakness.? No dizziness lightheadedness or passing out.? She does not report any chest pain or palpitations.? She says she is not taken her morning medications including amiodarone and metoprolol. Not complaining of any fever chills nausea vomiting or diaphoresis. No chest pain or palpitations. No shortness of breath wheezing or cough. No abdominal. No dysuria or hematuria all extremities volitionally. No neurological symptoms in any extremity. No new skin lesions or rashes. Not complain of any acute mood changes or depression. Personally discussed the patient with Dr. Waller ER physician and Dr. Colbert general surgery in regards to the findings of the CT of the abdomen. All the findings are significant of the CT, actual examination of the abdomen is not as significant and Dr. Colbert is not intending to right surgery at this time and will follow the patient on the lombardo. Findings of the CT of the abdomen were as follows: Focally inflamed left-sided small bowel loop with wall thickening and perienteric edema.? No mural pneumatosis, however, probable intrahepatic portal venous gas raises thepossibility of ischemic bowel.? Differential would include infectious or inflammatory small bowel without obstruction. Of note, amiodarone and Coumadin can combine to have an effect that the INR is elevated, and therefore the patient should likely have INR monitoring at least every 2 weeks on an ongoing basis to ensure that she does not intermittently get elevated INR. Discharge Providers Provider Date of admission: 08/05/22 15:50 Discharge Date: 08/07/22 Primary care physician: Gaston Rollins MD Discharge provider: Flaca Beard MD Summary Hospital Course Discharge Diagnosis: Rectal bleeding Supratherapeutic INR Sleep apnea Abnormal CT of the abdomen Atrial fibrillation CAD (coronary artery disease) Cardiomyopathy GERD (gastroesophageal reflux disease) Glucose intolerance Hearing impaired HLD (hyperlipidemia) HTN (hypertension) Hypothyroidism LBBB (left bundle branch block) Nonrheumatic aortic (valve) stenosis Osteoarthritis Osteoporosis Panic disorder RLS (restless legs syndrome) Systolic heart failure T12 compression fracture (06/04/12) Urinary incontinence Vertigo Hospital Course: Patient presented with rectal bleeding. CT of the abdomen showed focally inflamed left-sided small bowel loop with wall thickening and perienteric edema.? No mural pneumatosis, however, probable intrahepatic portal venous gas raises the possibility of ischemic bowel.? Differential would include infectious or inflammatory small bowel without obstruction. Because of the lack of abdominal signs and symptoms, surgery was not entertained by the general surgeon Dr. Colbert. The patient was followed clinically. INR was elevated to 4.5 and warfarin use was discontinued. INR slowly decreased to the date of discharge of 1.8. Within the 24 hours prior to discharge there was still some small amount of blood per rectum. It was also noted that on the day of discharge it was difficult to wean the patient from O2 supplementation in the when she fell asleep her O2 sats would drop below 90% on room air. This is consistent with sleep apnea and the daughter confirmed that her pattern asleep at home is consistent with sleep apnea as well. The patient was informed that she should have this worked up by her physician following discharge. Dr. Colbert was wanting a follow-up CT that has been scheduled for August 11 2022 and this will be followed up with a appointment with Dr. Colbert. Status at Discharge Cognitive/behavioral status at discharge: at baseline, oriented Functional status at discharge: independent ambulation Overall status at discharge: patient is progressing back to baseline Time Spent with Patient Time spent: Less than 30 minutes Exam Vital Signs (past 8 hours): - 08/07/22 13:16 08/07/22 13:33 Temperature 98.9 F Pulse Rate 63 Respiratory Rate 18 Blood Pressure 108/45 L Pulse Oximetry 98 96 Oxygen Flow Rate 2 1 Oxygen Delivery Method Nasal Cannula Oxygen Flow Rate 1 Objective Labs Result Diagrams: 08/07/22 05:29 08/07/22 05:29 Labs: Laboratory Results - last 24 hr 01/04/2108/07/22 08/07/22 05:29 05:29 05:29 WBC 8.6 RBC 2.88 L Hgb 9.4 L Hct 27.6 L MCV 95.8 MCH 32.7 MCHC 34.2 RDW 15.3 H Plt Count 218 Neut % (Auto) 80.3 H Lymph % (Auto) 10.6 L Mower % (Auto) 7.4 Eos % (Auto) 1.4 L Baso % (Auto) 0.3 Neut # (Auto) 6900 Lymph # (Auto) 900 L Mower # (Auto) 600 Eos # (Auto) 100 Baso # (Auto) 0 PT 21.3 H D INR 1.8 H Sodium 130 L Potassium 3.9 Chloride 97 L Carbon Dioxide 29 BUN 14 Creatinine 0.73 Estimated GFR > 60 BUN/Creatinine Ratio 19.2 Glucose 117 H Calcium 7.8 L Total Bilirubin 0.6 AST 31 ALT 18 Alkaline Phosphatase 44 Total Protein 6.1 L Albumin 3.1 L Globulin 3.0 Albumin/Globulin Ratio 1.0 PFSH Medical History (Updated 08/06/22 @ 14:32 by Cherie Colbert MD) Atrial fibrillation CAD (coronary artery disease) Cardiomyopathy GERD (gastroesophageal reflux disease) Glucose intolerance Hearing impaired HLD (hyperlipidemia) HTN (hypertension) Hypothyroidism LBBB (left bundle branch block) Nonrheumatic aortic (valve) stenosis Osteoarthritis Osteoporosis Panic disorder RLS (restless legs syndrome) Systolic heart failure T12 compression fracture (06/04/12) Urinary incontinence Vertigo Surgical History H/O: hysterectomy Hip joint replacement status History of aortic valve replacement (~2001) History of lumpectomy of right breast Hx of bilateral cataract extraction Hx of removal of cyst Hx of tonsillectomy S/P CABG x 1 (~2001) Family History (Updated 05/07/20 @ 02:41 by YVONNE Rose) Father Diabetes mellitus Chronic kidney disease Heart disease Mother Cancer Social History household members: family and other Smoking Status: Never smoker alcohol intake: never Discharge Plan Discharge Plan Patient Disposition: Home Provider Discharge Comment: Patient to hold warfarin until she is had 24 hours with no hint blood from her rectum. She should schedule an INR tests on the day that she has her follow-up CT scan which is on August 11. She has been informed that she has sleep apnea and this should be follow up with her family doctor for workup and treatment. Is very clear that she has normal oxygenation when she is alert and awake however when she sleep did does dip below 90%. When she has the CT of the abdomen and pelvis, she can follow-up with general surgeon Dr. Colbert. Discharge orders & Medications Prescriptions: New melatonin 3 mg Tablet 3 mg PO BEDTIME Qty: 30 0RF liothyronine [Cytomel] 5 mcg Tablet 5 mcg PO DAILY@0600 Qty: 30 0RF levothyroxine [Synthroid] 125 mcg Tablet 250 mcg PO Avery@0600 Qty: 5 0RF levothyroxine [Synthroid] 125 mcg Tablet 125 mcg PO MoTuWeThFrSa@0600 Qty: 26 0RF cholecalciferol (vitamin D3) 25 mcg (1,000 unit) Tablet 1,000 unit PO BID Qty: 30 0RF metoprolol tartrate 50 mg Tablet 50 mg PO DAILY Qty: 30 0RF Continued diphenhydramine HCl 25 mg Capsule 25 mg PO BEDTIME PRN (Reason: Seasonal allergies) Qty: 0 acetaminophen [Tylenol Extra Strength] 500 MG tablet 500 mg PO Q8HP PRN (Reason: Pain) Qty: 0 cyclobenzaprine 10 mg Tablet 10 mg PO Q6-8H PRN (Reason: Muscle Spasm) warfarin 2.5 mg Tablet 2.5 mg PO DAILY omeprazole 40 mg Capsule,Delayed Release(Dr/Ec) 40 mg PO BEDTIME pramipexole 0.25 mg Tablet 0.75 mg PO BEDTIME PRN (Reason: RLS) ezetimibe [Zetia] 10 mg Tablet 10 mg PO BEDTIME rosuvastatin [Crestor] 40 mg Tablet 40 mg PO BEDTIME trospium 60 mg Capsule,Extended Release 24hr 50 mg PO BEDTIME Caltrate 600 plus D 600 mg (1,500 mg)-800 unit Tablet,Chewable 1 tab PO BID ascorbic acid (vitamin C) [Vitamin C] 500 mg Tablet 1,000 mg PO DAILY tramadol 50 MG tablet 100 mg PO Q8HP PRN (Reason: Pain) Qty: 10 0RF amiodarone 200 mg Tablet 200 mg PO DAILY aspirin [Saranya Low Dose Aspirin] 81 mg Tablet,Delayed Release (Dr/Ec) 81 mg PO DAILY vitamin B complex [B-Complex] Tablet 1 tab PO DAILY vitamin E 400 unit Capsule 400 unit PO DAILY metoprolol tartrate 25 mg Tablet See Rx Instructions .ROUTE .COMPLEX Rx Instructions: Takes 50mg in AM Takes 25mg in PM methocarbamol 500 mg tablet 500 mg PO BEDTIME PRN (Reason: Spasms) Discontinued levothyroxine [Synthroid] 125 mcg Tablet 125 mcg PO SEEINSTR Rx Instructions: 1 tab daily , 2 tabs each Sunday Follow up/Referrals: Cherie Colbert MD [Physician] - (Follow up in 1-2 weeks. I will order an outpatient CT scan during that time, if you can arrange to see me after the scan is done and we can discuss the results. Call if you have any questions or concerns or if you would like to schedule a colonoscopy. I encourage you to continue to stay on a regimen of fiber supplement for at least a week.) Gaston Rollins MD [Primary Care Provider] - Other Ambulatory Orders: CT abdomen pelvis w con (Routine) Timeframe: 1 Week Facility: [facility] - Location: Radiology Ordered By: Cherie Colbert Visit Report/Discharge Packet Stand Alone Forms: Patient Portal/API, Stroke Signs & Symptoms Discharge Data Primary Care Provider: Gaston Rollins Attending Provider: Flaca Beard
--- NOTE | 2022-08-08 07:38 | CM.DPC ---
DCP Cont: Pt d/c'd yesterday pm. This DCP printed out orders and discharge summary for [facility]. Spoke to Nae at [facility] who will follow up. Ordering RN and PT for pt. P: Pt discharged yesterday evening to home with hh. Clare Lara RN Case Manager
== END 2022-08-07 17:52 | disposition home or self-care (01) ==
LOC: ED 15:32 → AC 15:51
PROVIDERS: Admitting Provider Neuromusculoskeletal Medicine, Sports Medicine; Emergency Provider Emergency Medicine; Family Provider Family Medicine; PCP Internal Medicine; Referring Provider Emergency Medicine; Visit Provider Neuromusculoskeletal Medicine, Sports Medicine
DX: R93.3 Abnormal findings on diagnostic imaging of other parts of digestive tract (principal); R10.9 Unspecified abdominal pain; K92.1 Melena; R79.1 Abnormal coagulation profile; Z79.01 Long term (current) use of anticoagulants; I48.20 Chronic atrial fibrillation, unspecified; G47.30 Sleep apnea, unspecified; Z20.822 Contact with and (suspected) exposure to COVID-19
CPT/HCPCS: 36415; 74177; 80053; 82550; 83036; 83605; 83690; 84439; 84443; 84481; 84484; 85014; 85018; 85025; 85027; 85610; 85730; 87635; 93005; 93010; 96374; 96375; 96376; 99285; C9803; G0378; C9113; J2405; Q9967

== ENCOUNTER 2022-08-08 07:46 | Emergency (ER) | payer MEDICARE, OTHER, SELFPAY ==
[2022-08-05 17:29] VITALS: BMI 45.8
[2022-08-08 07:52] VITALS: BP 114/54; PULSE 87; RESP 16; TEMP 36.5; O2SAT 97; BMI 45.5
--- NOTE | 2022-08-08 08:10 | ED_ITS ---
HPI - Fall General Chief Complaint: Fall Stated Complaint: GLF- mid back pain Time Seen by Provider: 08/08/22 07:58 History of Present Illness HPI Narrative: 82-year-old female presenting with fall on blood thinning medications. Patient reports trying to get into bed and falling next to the bed onto the floor. Patient denies direct head impact or loss of consciousness. Patient recently admitted with GI bleeding to this hospital, holding blood thinning medications while in the hospital, has taken 1 dose since leaving the hospital. Patient is unsure why she fell. Denies chest pain or shortness of breath/near syncope/syncope immediately prior to the fall. Patient currently reports pain localized to the mid and low back, constant, moderate severity, does not radiate. No focal weakness. Related Data Home Medications Medication Instructions Recorded Confirmed diphenhydramine HCl 25 mg capsule 25 mg PO BEDTIME PRN Seasonal 06/17/12 08/05/22 allergies ##0 acetaminophen 500 mg tablet 500 mg PO Q8HP PRN Pain ##0 06/18/12 08/05/22 (Tylenol Extra Strength) calcium carbonate 600 mg-vitamin 1 tab PO BID 09/03/19 08/05/22 D3 20 mcg (800 unit) chewable tablet (Caltrate 600 plus D) cyclobenzaprine 10 mg tablet 10 mg PO Q6-8H PRN Muscle Spasm 09/03/19 08/05/22 ezetimibe 10 mg tablet (Zetia) 10 mg PO BEDTIME 09/03/19 08/05/22 omeprazole 40 mg capsule,delayed 40 mg PO BEDTIME 09/03/19 08/05/22 release pramipexole 0.25 mg tablet 0.75 mg PO BEDTIME PRN RLS 09/03/19 08/05/22 rosuvastatin 40 mg tablet (Crestor) 40 mg PO BEDTIME 09/03/19 08/05/22 trospium 60 mg capsule,extended 50 mg PO BEDTIME 09/03/19 08/05/22 release 24 hr warfarin 2.5 mg tablet 2.5 mg PO DAILY 09/03/19 08/05/22 ascorbic acid (vitamin C) 500 mg 1,000 mg PO DAILY 10/17/19 08/05/22 tablet (Vitamin C) amiodarone 200 mg tablet 200 mg PO DAILY 05/06/20 08/05/22 aspirin 81 mg tablet,delayed 81 mg PO DAILY 05/06/20 08/05/22 release (Saranya Low Dose Aspirin) metoprolol tartrate 25 mg tablet See Rx Instructions .Route .COMPLEX 05/06/20 08/05/22 vitamin B complex (B-Complex 1 tab PO DAILY 05/06/20 08/05/22 tablet) vitamin E 268 mg (400 unit) capsule 400 unit PO DAILY 05/06/20 08/05/22 methocarbamol 500 mg tablet 500 mg PO BEDTIME PRN Spasms 08/05/22 08/05/22 Previous Rx's Medication Instructions Recorded tramadol 50 mg tablet 100 mg PO Q8HP PRN Pain #10 tabs 10/20/19 cholecalciferol (vitamin D3) 25 1,000 unit PO BID #30 tabs 08/07/22 mcg (1,000 unit) tablet levothyroxine 125 mcg tablet 125 mcg PO MoTuWeThFrSa@0600 #26 08/07/22 (Synthroid) tabs levothyroxine 125 mcg tablet 250 mcg PO Avery@0600 #5 tabs 08/07/22 (Synthroid) liothyronine 5 mcg tablet (Cytomel) 5 mcg PO DAILY@0600 #30 tabs 08/07/22 melatonin 3 mg tablet 3 mg PO BEDTIME #30 tabs 08/07/22 metoprolol tartrate 50 mg tablet 50 mg PO DAILY #30 tabs 08/07/22 Allergies Allergy/AdvReac Type Severity Reaction Status Date / Time latex Allergy Intermediate ITCHING Verified 08/05/22 10:08 acetaminophen [From Vicodin] AdvReac Agitated Verified 08/05/22 10:08 hydrocodone [From Vicodin] AdvReac Agitated Verified 08/05/22 10:08 oxycodone AdvReac Confusion Verified 08/05/22 10:08 Review of Systems Review of Systems Narrative: Constitutional, Eyes, ENT, Pulmonary, Cardiovascular, Gastrointestinal, Renal, Endocrine, Genitourinary, Musculoskeletal, Neurologic, Skin, and Psychiatric systems were reviewed and negative unless indicated in the HPI above. Patient History Medical History Atrial fibrillation CAD (coronary artery disease) Cardiomyopathy GERD (gastroesophageal reflux disease) Glucose intolerance Hearing impaired HLD (hyperlipidemia) HTN (hypertension) Hypothyroidism LBBB (left bundle branch block) Nonrheumatic aortic (valve) stenosis Osteoarthritis Osteoporosis Panic disorder RLS (restless legs syndrome) Systolic heart failure T12 compression fracture (06/04/12) Urinary incontinence Vertigo Surgical History H/O: hysterectomy Hip joint replacement status History of aortic valve replacement (~2001) History of lumpectomy of right breast Hx of bilateral cataract extraction Hx of removal of cyst Hx of tonsillectomy S/P CABG x 1 (~2001) Family History Father Diabetes mellitus Chronic kidney disease Heart disease Mother Cancer Social History household members: family and other Smoking Status: Never smoker alcohol intake: never Smoking Status: Never smoker alcohol intake frequency: holidays/special occasions only Substance Use Type: does not use Exam Narrative Exam Narrative: Vitals reviewed. Nursing note reviewed Constitutional: interactive HENT: Moist mucous membranes EYES: No scleral icterus NECK: no masses CV: Well perfused peripherally, no cyanosis present PULM: Unlabored respirations, symmetric chest rise ABD: Non-distended Back: Tender to palpation over the mid and low back MS: No gross deformities, no asymmetric edema noted SKIN: Warm and dry. PSYCH: Appropriate affect NEURO: Follows simple commands, moves extremities, interactive with exam, symmetric strength and sensation in the bilateral lower and upper extremities Initial Vital Signs Initial Vital Signs: Vital Signs Temperature 97.7 F 08/08/22 07:52 Pulse Rate 87 08/08/22 07:52 Respiratory Rate 16 08/08/22 07:52 Blood Pressure 114/54 L 08/08/22 07:52 Pulse Oximetry 97 08/08/22 07:52 Oxygen Delivery Method 08/08/22 07:52 Course Orders Ordered: ED Orders 08/08/22 08:13 CT cervical spine wo con Stat CT head/brain wo con Stat CT lumbar spine wo con Stat CT thoracic spine wo con Stat CXR [XR chest 1V] Stat XR pelvis 1-2V Stat 08/08/22 09:00 CBC Auto Diff [Complete Blood Count AUTO DIFF] Stat CMP [Comprehensive Metabolic Panel] Stat Prothrombin Time INR Stat 08/08/22 10:14 MR thoracic spine wo con Stat Discontinued Medications Cyclobenzaprine HCl (Cyclobenzaprine 10 Mg Tablet) 10 mg PO NOW ONE Stop: 08/08/22 09:34 Last Admin: 08/08/22 09:38 Dose: 10 mg Documented By: SUZIE Vital Signs Vital signs: Vital Signs - 8 hr 08/08/22 07:52 08/08/22 11:41 Temperature 97.7 F Pulse Rate 87 86 Respiratory Rate 16 18 Blood Pressure 114/54 L 101/49 L Pulse Oximetry 97 94 Oxygen Delivery Method Room Air Room Air MDM - Fall Lab Data Result diagrams: 08/08/22 09:00 08/08/22 09:00 Labs: Lab Results 08/08/22 08/08/22 08/08/22 Range/Units 09:00 09:00 09:00 WBC 11.3 H (4.5-11.0) X10^3/uL RBC 2.90 L (4.0-5.2) X10^6/uL Hgb 9.4 L (12.0-16.0) g/dL Hct 28.3 L (36-46) % MCV 97.6 (80-100) fL MCH 32.3 (26-34) PG MCHC 33.1 (30-36) % RDW 15.2 H (11.6-14.8) % Plt Count 223 (150-400) X10^3/uL Neut % (Auto) 83.4 H (50-75) % Lymph % (Auto) 7.7 L (25-40) % Prentiss % (Auto) 8.0 (3-14) % Eos % (Auto) 0.7 L (2-4) % Baso % (Auto) 0.2 (0-2) % Neut # (Auto) 9400 H (7689-9336) /uL Lymph # (Auto) 900 L (9019-1454) /uL Prentiss # (Auto) 900 (0-900) /uL Eos # (Auto) 100 (0-450) /uL Baso # (Auto) 0 (0-100) /uL PT 14.7 H D (10.1-12.7) SECONDS INR 1.3 (0.9-1.3) Sodium 131 L (137-145) mmol/L Potassium 4.3 (3.4-5.1) mmol/L Chloride 95 L (98-107) mmol/L Carbon Dioxide 32 (22-32) mmol/L BUN 13 (7-17) mg/dL Creatinine 0.74 (0.52-1.04) mg/dL Estimated GFR > 60 (>60) mL/min BUN/Creatinine Ratio 17.6 (6-22) Glucose 109 (80-110) mg/dL Calcium 8.7 (8.4-10.2) mg/dL Total Bilirubin 0.7 (0.2-1.3) mg/dL AST 43 H (14-36) IU/L ALT 22 (<35) IU/L Alkaline Phosphatase 44 (38-126) U/L Total Protein 6.4 (6.3-8.2) g/dL Albumin 3.3 L (3.5-5.0) g/dL Globulin 3.1 (1.7-4.1) g/dL Albumin/Globulin Ratio 1.1 (1.0-2.8) MDM Narrative Medical decision making narrative: 82-year-old female presenting with fall on blood thinning medications. Vital signs on presentation notable for no significant abnormalities. Physical exam notable for alert and interactive 82-year-old female who is in no acute distress, reassuring cardiopulmonary exam, benign abdomen, tenderness over the mid and low back. Initial concern for acute traumatic injury in the setting blood thinning medications, fracture, dislocation, neurovascular injury, solid organ injury, soft tissue strain, worsening debility. Given concern for acute traumatic injury, imaging ordered as above with CT imaging of the head, total spine, chest x-ray and pelvis x-ray. CT imaging notable for T9 fracture that appears unstable. Screening labs notable for stable anemia at 9/28, mild hyponatremia, INR at 1.3. MR imaging of the thoracic spine obtained and notable for 3 column fracture without clear evidence of cord compression. Discussed case with Neurosurgery at [facility], Dr. Mcdonald, accepting patient for transfer for emergent surgery. Discussed findings with patient and family members at bedside and via telephone, this includes the patient's POA via telephone, agreeable with plan for transfer to [facility] for surgical intervention. Patient's pain was controlled with IV morphine. Patient is subsequently transferred with spinal precautions in place. Discharge Plan Departure Patient Disposition: [facility] Clinical Impression: Closed three column fracture of thoracic vertebra Prescriptions: No Action diphenhydramine HCl 25 mg Capsule 25 mg PO BEDTIME PRN (Reason: Seasonal allergies) Qty: 0 acetaminophen [Tylenol Extra Strength] 500 MG tablet 500 mg PO Q8HP PRN (Reason: Pain) Qty: 0 cyclobenzaprine 10 mg Tablet 10 mg PO Q6-8H PRN (Reason: Muscle Spasm) warfarin 2.5 mg Tablet 2.5 mg PO DAILY omeprazole 40 mg Capsule,Delayed Release(Dr/Ec) 40 mg PO BEDTIME pramipexole 0.25 mg Tablet 0.75 mg PO BEDTIME PRN (Reason: RLS) ezetimibe [Zetia] 10 mg Tablet 10 mg PO BEDTIME rosuvastatin [Crestor] 40 mg Tablet 40 mg PO BEDTIME trospium 60 mg Capsule,Extended Release 24hr 50 mg PO BEDTIME Caltrate 600 plus D 600 mg (1,500 mg)-800 unit Tablet,Chewable 1 tab PO BID ascorbic acid (vitamin C) [Vitamin C] 500 mg Tablet 1,000 mg PO DAILY tramadol 50 MG tablet 100 mg PO Q8HP PRN (Reason: Pain) Qty: 10 0RF amiodarone 200 mg Tablet 200 mg PO DAILY aspirin [Saranya Low Dose Aspirin] 81 mg Tablet,Delayed Release (Dr/Ec) 81 mg PO DAILY vitamin B complex [B-Complex] Tablet 1 tab PO DAILY vitamin E 400 unit Capsule 400 unit PO DAILY metoprolol tartrate 25 mg Tablet See Rx Instructions .ROUTE .COMPLEX Rx Instructions: Takes 50mg in AM Takes 25mg in PM methocarbamol 500 mg tablet 500 mg PO BEDTIME PRN (Reason: Spasms) melatonin 3 mg Tablet 3 mg PO BEDTIME Qty: 30 0RF liothyronine [Cytomel] 5 mcg Tablet 5 mcg PO DAILY@0600 Qty: 30 0RF levothyroxine [Synthroid] 125 mcg Tablet 250 mcg PO Avery@0600 Qty: 5 0RF levothyroxine [Synthroid] 125 mcg Tablet 125 mcg PO MoTuWeThFrSa@0600 Qty: 26 0RF cholecalciferol (vitamin D3) 25 mcg (1,000 unit) Tablet 1,000 unit PO BID Qty: 30 0RF metoprolol tartrate 50 mg Tablet 50 mg PO DAILY Qty: 30 0RF Referrals: Gaston Rollins MD [Primary Care Provider] -
--- NOTE | 2022-08-08 08:13 | DI.CT.S_ITS ---
PROCEDURE: CT LUMBAR SPINE WO CON INDICATIONS: fall TECHNIQUE: Noncontrast 3 mm thick sections acquired from the T12 level to the sacrum. Sagittal and coronal reformats were constructed. For radiation dose reduction, the following was used: automated exposure control. COMPARISON: [facility], CT, CT ABDOMEN PELVIS W CON, 08/05/2022, 10:24. [facility], CR, XR PELVIS 1-2V, 08/08/2022, 8:23. [facility], CR, XR CHEST 1V, 08/08/2022, 8:23. [facility], CT, CT HEAD/BRAIN WO CON, 08/08/2022, 8:23. [facility], CT, CT THORACIC SPINE WO CON, 08/08/2022, 8:23. [facility], CT, CT CERVICAL SPINE WO CON, 08/08/2022, 8:23. FINDINGS: Image quality: Excellent. Bones: No acute vertebral body compression fractures. Remote, stable anterior wedge deformities can be seen of T11 and T12. No suspicious lytic or blastic bony lesions. Note is made of L2 vertebral body hemangioma, as demonstrated on series 4, image 19 on series 5, image 32. Minimal retrolisthesis is seen at L1-L2. Mild grade 1 anterolisthesis is seen at L4-L5. No associated pars defects are seen. T12-L1: Calcification is seen along the disc space. Mild disc bulge is seen, which is eccentric to the left. There is moderate left-sided and minimal right-sided neural foraminal narrowing. No significant central canal narrowing is seen. L1-L2: The disc height is well preserved. Mild generalized disc bulge is seen. Moderate bilateral neural foraminal narrowing is seen. No significant central canal narrowing is seen. L2-L3: The disc height is well preserved. Mild generalized disc bulge is seen. Mild facet joint hypertrophy is seen. There is dujg-sp-sgiqkuzk left-sided and mild right-sided neural foraminal narrowing. Mild central canal narrowing is seen. L3-L4: The disc height is well preserved. Mild to moderate disc bulge is seen, with a mild central disc protrusion. Moderate facet joint hypertrophy is seen. Associated hypertrophy of the ligamentum flavum can be seen. There is goqj-ad-yfrqpowl left-sided and moderate right-sided neural foraminal narrowing. Moderate central canal narrowing is seen. L4-L5: The disc height is well preserved. Moderate generalized disc bulge is seen. There is a superimposed central disc protrusion. At least moderate facet hypertrophy is seen at this level. Associated hypertrophy of the ligamentum flavum can be seen. There is moderate right-sided and minimal left-sided neural foraminal narrowing. Moderate to severe central canal narrowing is seen. L5-S1: The disc height is well preserved. Mild generalized disc bulge is seen. Mild facet joint hypertrophy is seen. No significant neural foraminal or central canal narrowing can be seen. Soft tissues: No retroperitoneal masses or hematomas. Visualized aorta is normal in caliber. Atherosclerotic calcification is noted. Mild ascites is seen. Layering gallstones can be seen within the gallbladder. IMPRESSION: Negative for acute fracture. Remote, stable T11 and T12 anterior wedge deformities. Prior T12 vertebroplasty cement. Multiple levels of lumbar spine degenerative change are seen. There is a mild amount of ascites. Additional findings: Layering gallstones L2 vertebral body hemangioma Dictated by: Jeff Nichols M.D. on 08/08/2022 at 8:29 Approved by: Jeff Nichols M.D. on 08/08/2022 at 8:35
--- NOTE | 2022-08-08 08:13 | DI.CT.S_ITS ---
PROCEDURE: CT THORACIC SPINE WO CON INDICATIONS: fall TECHNIQUE: Noncontrast 3 mm thick sections acquired through the region of interest in the thoracic spine. Sagittal and coronal reformats were then constructed. For radiation dose reduction, the following was used: automated exposure control. COMPARISON: [facility], CT, CT ANGIO CHEST PE, 11/17/2019, 15:47. [facility], CR, XR PELVIS 1-2V, 08/08/2022, 8:23. [facility], CR, XR CHEST 1V, 08/08/2022, 8:23. [facility], CT, CT HEAD/BRAIN WO CON, 08/08/2022, 8:23. [facility], CT, CT LUMBAR SPINE WO CON, 08/08/2022, 8:23. [facility], CT, CT CERVICAL SPINE WO CON, 08/08/2022, 8:23. [facility], CT, CT ABDOMEN PELVIS W CON, 08/05/2022, 10:24. FINDINGS: Image quality: Excellent. Bones: This patient has transitional lumbar anatomy, with 6 lumbar type vertebral bodies. The superior most non rib-bearing vertebral body is designated as T13. By this numbering scheme, the anterior wedge deformities are seen at the T12 and T13 levels, with vertebroplasty cement at T13. Bridging anterior osteophytes can be seen throughout the thoracic spine. Numerous levels of calcification can be seen throughout the disc levels are within the thoracic spine. At T9, there is a distraction type injury seen, with fracture of the anterior osteophytes, with a fracture cleft seen through the vertebral body, as on series 4, image 40 and on series 5, image 30. No definite involvement of the posterior elements can be seen. Soft tissues: No paravertebral masses or hematomas. Visualized posteromedial lungs appear clear. Sternotomy wires and an aortic valve prosthesis can be seen. Dense coronary artery calcification can be seen. Atherosclerotic calcification is noted of the aorta. IMPRESSION: At T9, there is a distraction type injury, with a fracture of the bridging anterior osteophytes and a fracture through the inferior aspect of the vertebral body itself. If it would be helpful for clinical management decision making in this patient with this given history, please consider a dedicated thoracic spine MRI for further evaluation. Additional findings: Sternotomy wires and aortic valve prosthesis Dense coronary artery calcification Note: Findings and recommendations discussed by telephone with Dr. Lewis at 8:44 a.m. [place] time on August 08, 2022. Dictated by: Jeff Nichols M.D. on 08/08/2022 at 8:36 Approved by: Jfef Nichols M.D. on 08/08/2022 at 8:46
--- NOTE | 2022-08-08 08:13 | DI.RAD.S_ITS ---
PROCEDURE: XR PELVIS 1-2V INDICATIONS: fall TECHNIQUE: 1 view(s) of the pelvis acquired. COMPARISON: [facility], CR, XR PELVIS 1-2V, 09/10/2019, 9:49. [facility], CT, CT ABDOMEN PELVIS W CON, 08/05/2022, 10:24. FINDINGS: Bones: No fractures or dislocations. No suspicious bony lesions. Right hip arthroplasty hardware is seen, without findings failure or loosening. Omwy-iw-pdpnnsab left hip degenerative change seen. Age-appropriate lower lumbar spine degenerative changes are noted. Note is made of osteitis pubis, which is not considered to be frankly abnormal in a woman of this age. Soft tissues: Visualized bowel gas pattern is normal. No suspicious soft tissue calcifications. Atherosclerotic calcification is noted. IMPRESSION: No displaced fracture can be seen on this study. Prior right hip arthroplasty hardware. Dictated by: Jeff Nichols M.D. on 08/08/2022 at 8:27 Approved by: Jeff Nichols M.D. on 08/08/2022 at 8:29
--- NOTE | 2022-08-08 08:13 | DI.CT.S_ITS ---
PROCEDURE: CT HEAD/BRAIN WO CON INDICATIONS: fall TECHNIQUE: Noncontrast 4.5 mm thick angled axial sections acquired from the foramen magnum to the vertex, with coronal and sagittal reformats. For radiation dose reduction, the following was used: automated exposure control, adjustment of mA and/or kV according to patient size. COMPARISON: None. FINDINGS: Image quality: Good CSF spaces: Basal cisterns are patent. Lateral ventricles are symmetric. Volume: Vascular calcifications. Periventricular white matter disease is commonly seen with chronic microangiopathy. Volume loss is present. These findings are kjzz-il-mheupjfk Brain: No acute intracranial hemorrhage. No gross loss of julien-white differentiation. 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 Craniofacial structures: No displaced fracture. Sinuses are clear. Orbits are intact. IMPRESSION: No acute intracranial abnormality. Other findings as above. Dictated by: Kamran Pinedo M.D. on 08/08/2022 at 8:53 Approved by: Kamran Pinedo M.D. on 08/08/2022 at 8:55
--- NOTE | 2022-08-08 08:13 | DI.CT.S_ITS ---
PROCEDURE: CT CERVICAL SPINE WO CON INDICATIONS: fall TECHNIQUE: Noncontrast 3 mm thick sections acquired from the skull base to the T4 level. Sagittal and coronal reformats were then constructed. For radiation dose reduction, the following was used: automated exposure control, adjustment of mA and/or kV according to patient size. COMPARISON: [facility], CT, CT ANGIO HEAD AND NECK, 05/06/2020, 19:00. [facility], CR, XR PELVIS 1-2V, 08/08/2022, 8:23. [facility], CR, XR CHEST 1V, 08/08/2022, 8:23. [facility], CT, CT HEAD/BRAIN WO CON, 08/08/2022, 8:23. [facility], CT, CT LUMBAR SPINE WO CON, 08/08/2022, 8:23. [facility], CT, CT THORACIC SPINE WO CON, 08/08/2022, 8:23. FINDINGS: Image quality: Excellent. Bones: No fractures or dislocations. Visualized superior ribs are intact. Focal degenerative change is seen involving the C1-C2 interface anteriorly. Mild disc space narrowing can be seen at C5-C6 level. Grade 1 anterolisthesis is seen C6-C7. Degenerative changes are seen within the visualized thoracic spine Mild levoconvex cervical scoliotic curvature seen. Sternotomy wires are partially seen Soft tissues: Prevertebral soft tissues are normal in thickness. No paravertebral hematomas. No apical pneumothoraces. Atherosclerotic calcification is noted. IMPRESSION: Negative for fracture. Underlying degenerative changes are seen. Dictated by: Jeff Nichols M.D. on 08/08/2022 at 7:52 Approved by: Jeff Nichols M.D. on 08/08/2022 at 7:56
--- NOTE | 2022-08-08 08:13 | DI.RAD.S_ITS ---
PROCEDURE: XR CHEST 1V INDICATIONS: fall TECHNIQUE: One view of the chest was acquired. COMPARISON: [facility], CR, XR CHEST 1 VIEW, 11/20/2019, 18:38. [facility], CR, XR PELVIS 1-2V, 08/08/2022, 8:23. [facility], CT, CT HEAD/BRAIN WO CON, 08/08/2022, 8:23. [facility], CT, CT LUMBAR SPINE WO CON, 08/08/2022, 8:23. [facility], CT, CT THORACIC SPINE WO CON, 08/08/2022, 8:23. [facility], CT, CT CERVICAL SPINE WO CON, 08/08/2022, 8:23. [facility], CR, XR CHEST FOR PICC 1V, 09/25/2019, 17:49. FINDINGS: Surgical changes and devices: Sternotomy wires are seen. An aortic valve prosthesis is seen. T12 vertebroplasty cement is seen Lungs and pleura: On this supine examination, no large pneumothorax or large pleural effusions are seen. No focal areas of lung consolidation are seen. Mediastinum: Mediastinal contours appear normal. Heart size is mildly enlarged. Atherosclerotic calcification of the aortic arch is noted. Bones and chest wall: No suspicious bony lesions. Age-appropriate bony degenerative changes are seen. Overlying soft tissues appear unremarkable. IMPRESSION: No acute abnormality is seen on this single supine view. Mild cardiomegaly. Please comment Postoperative and degenerative changes are seen. Dictated by: Jeff Nichols M.D. on 08/08/2022 at 8:24 Approved by: Jeff Nichols M.D. on 08/08/2022 at 8:26
[2022-08-08 09:21] LABS: Add Manual Diff / Slide Review NO; Basophils Absolute Auto 0 /uL (0-100); Basophils Percent Auto 0.2 % (0-2); Eosinophils Absolute Auto 100 /uL (0-450); Eosinophils Percent Auto 0.7 % (2-4); Hematocrit 28.3 % (36-46); Hemoglobin 9.4 g/dL (12.0-16.0); Lymphocytes Absolute Auto 900 /uL (1100-4500); Lymphocytes Percent Auto 7.7 % (25-40); Mean Corpuscular HGB Conc 33.1 % (30-36); Mean Corpuscular Hemoglobin 32.3 PG (26-34); Mean Corpuscular Volume 97.6 fL (80-100); Monocytes Absolute Auto 900 /uL (0-900); Neutrophils Absolute Auto 9400 /uL (1500-7000); Neutrophils Percent Auto 83.4 % (50-75); Platelet Count 223 X10^3/uL (150-400); Red Cell Distribution Width 15.2 % (11.6-14.8); White Blood Cell Count 11.3 X10^3/uL (4.5-11.0)
[2022-08-08 09:25] LABS: INR 1.3 (0.9-1.3); Prothrombin Time 14.7 SECONDS (10.1-12.7)
[2022-08-08 09:33] LABS: Alanine Aminotransferase 22 IU/L (<35); Albumin 3.3 g/dL (3.5-5.0); Albumin Globulin Ratio 1.1 (1.0-2.8); Alkaline Phosphatase 44 U/L (38-126); Aspartate Aminotransferase 43 IU/L (14-36); BUN Creatinine Ratio 17.6 (6-22); Bilirubin Total 0.7 mg/dL (0.2-1.3); Blood Urea Nitrogen 13 mg/dL (7-17); Calcium 8.7 mg/dL (8.4-10.2); Carbon Dioxide 32 mmol/L (22-32); Chloride 95 mmol/L (98-107); Estimated Glomerular Filt Rate > 60 mL/min (>60); Globulin 3.1 g/dL (1.7-4.1); Glucose 109 mg/dL (80-110); HEMOLYSIS 34 (0-50); Potassium 4.3 mmol/L (3.4-5.1); Sodium 131 mmol/L (137-145); Total Protein 6.4 g/dL (6.3-8.2)
[2022-08-08] MEDS: CYCLOBENZAPRINE 10 MG TABLET PO (09:38)
--- NOTE | 2022-08-08 10:14 | DI.MRI.S_ITS ---
PROCEDURE: MR THORACIC SPINE WO CON INDICATIONS: T9 TECHNIQUE: Noncontrast sagittal T1 spine echo and T2 fast spin echo, sagittal STIR, and T2 fast spin echo through the thoracic spine. COMPARISON: [facility], CT, CT THORACIC SPINE WO CON, 08/08/2022, 8:23. FINDINGS: Image quality: Excellent. Alignment and Curvature: There is normal bony alignment. Bone Marrow: Fracture through the T9 vertebral body is again noted, and involves the anterior and posterior vertebral body cortex as well as the left T9-10 facet, consistent with a unstable 3 column fracture. No height loss. There is obvious disruption of the anterior and posterior longitudinal lip ligaments. No convincing evidence of epidural hematoma Additionally a, there is chronic appearing wedge-shaped compression fractures at T12 and L1 with vertebroplasty changes T10 typical hemangioma present as well Spinal Cord: Incidental hydrosyrinx measuring 2-3 mm in thickness extends from the T6-7 through T10 levels Paraspinous Soft Tissues: No paravertebral masses. Miscellaneous: On axial images, central canal and foramina appear widely patent at all scanned levels. IMPRESSION: 1. Distracted 3 column unstable T9 Chance fracture associated with disruption of the anterior and posterior longitudinal ligaments. No evidence of epidural hematoma or cord compression. 2. 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 on 08/08/2022 at 11:13
[2022-08-08 11:41] VITALS: BP 101/49; PULSE 86; RESP 18; O2SAT 94
[2022-08-08] MEDS: MORPHINE 2 MG/ML INJ IV (13:47)
[2022-08-08 13:55] VITALS: BP 100/50; PULSE 82; RESP 18; O2SAT 98
== END 2022-08-08 14:00 | disposition short-term general hospital (02) ==
PROVIDERS: Emergency Provider Emergency Medicine; Family Provider Family Medicine; PCP Internal Medicine
DX: S22.080A Wedge compression fracture of T11-T12 vertebra, initial encounter for closed fracture (principal); S32.010A Wedge compression fracture of first lumbar vertebra, initial encounter for closed fracture; Z79.899 Other long term (current) drug therapy; Z79.01 Long term (current) use of anticoagulants; W06.XXXA Fall from bed, initial encounter
CPT/HCPCS: 36415; 70450; 71045; 72125; 72128; 72131; 72146; 72170; 80053; 85025; 85610; 96374; 99284; J2270